=== PATIENT | female | born 1960 | race Caucasian/White ===

== ENCOUNTER 2016-09-21 08:25 | Inpatient (IN) | payer MEDICARE, MEDICAID ==
[2016-09-21] MEDS ORDERED: Sodium Chloride 0.9% 1,000 ML IV ONE (08:33)
--- NOTE | 2016-09-21 08:55 | ED Physician Chart ---
Chief Complaint/HPI - Patient Information Date Seen:: 09/21/16 Time Seen:: 08:20 Chief Complaint:: hypotension History of Present Illness:: pt sent from [place] where she was noted to have 'low blood pressure'. there is also some concern for 'congestion' that has been ongoing. the pt is unable to give any reliable history secondary to moderate dementia and perhaps her current clinical condition. there is no additional hx available from ambulance run sheet or attached records from care facility on this visit. Allergies:: Allergies Allergy/AdvReac Type Severity Reaction Status Date / Time meperidine Allergy Verified 03/06/16 11:26 olopatadine Allergy Verified 09/21/16 08:30 Penicillins Allergy Verified 03/06/16 11:26 prochlorperazine Allergy Verified 03/06/16 11:27 risperidone Allergy Verified 03/06/16 11:27 Vitals:: Vital Signs - 8 hr 09/21/16 08:30 Temp 98.2 F HR 144 RR 27 BP 99/56 O2 Sat % 100 Historian:: EMS, Medical Records (pt unable to communicate) Review:: Nurse's Note Reviewed, EMS run form Reviewed, Transfer documents Reviewed, Patient unable to respond Review of Systems - Review of Systems General/Constitutional: No fever Skin: Skin lesions (decube) Pulmonary: Sputum GI: No nausea, No vomiting, No diarrhea Musculoskeletal: Other (cp) Psychiatric: Other (?dementia per records) Hematopoietic: Other (anemia) Past Medical History - Past Medical History Past Medical History: HTN, DM, Dyslipidemia (recurrent resp infections), Other ( anemia) Social History: Care Facility Family Medical History - Family Member Mother History Unknown: Yes Ethnicity: Unknown Living Status: Unknown Paternal History Unknown: Yes Ethnicity: Unknown Living Status: Unknown Hx Family Diabetes: Yes Physical Exam - Physical Examination Head: Atraumatic Other Skin comments:: 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 no bleeding, unusual rashes. torgor ok. ENMT: Lips, teeth, gums nl Neck: No nuchal rigidity Other Neck comments:: no stridor Other Respiratory comments:: congested BS bilat, moves air fairly well. thick sputum suctioned by RT from throat. Other Cardio Vascular comments:: ST at 144, no ectopy, systolic ejection murmur2-3 heard at apex. ok peripheral pulses and skin VS. co cyanosis or mottling. GI: No tenderness/rebounding/guarding Other GI comments:: g-tube in place Other comments:: barr cath with cloudy urine. Other Extremities comments:: changes c/w CP, ext withered, contractures, good 2+DTRs on right but 1-2+ on left. Other Neuro/Psych comments:: responds to name, tries to turn head to see me. tries to answer simple questions with one word that is not intelligible all the time but sometimes seems to be appropriate? Other Misc comments:: presacral decube, nonsmelling Labs/Radiology/EKG Results - Lab Results Results: wbc 16.7, elevated troponin 1.96 . elevated BUN relative to Cr. Comments:: urinalysis with blood, elevated leuk esterase. lactate 2.01 - Radiology Results Comments:: ED read: increased consolidation left lung from pruior study 07/24/16. scoliosis , h. hernia, and suboptimal penetration technique may contribute to this appearance. - EKG Interpretations EKG Time:: 08:50 Rhythm: ST Comments:: Q waves III, V1-V2. ST depression leads 1,2, aVL, aVF, V4-6. ST elevation V1- 2. no prior fo0r comparison. ED Septic Shock - . Is Septic Shock (SBP<90, OR Lactate>4 mmol\L) present?: No - <6hrs of presentation: Vital Signs: Vital Signs - 8 hr 09/21/16 08:30 Temp 98.2 F HR 144 RR 27 BP 99/56 O2 Sat % 100 Reassessment (Disposition) - Reassessment Reassessment Condition:: Unchanged - Diagnosis Diagnosis:: sepsis, UTI, hypotension, probable pneumonia, decubitus, cerebral palsy, elevated troponin and EKG changes c/w AMI. dehydration. ED Discharge Plan - Patient Disposition Admit/Discharge/Transfer: Acute Care w/in this hosp Condition at Disposition: Stable
[2016-09-21 09:25] LABS: MEAN CELL VOLUME 90.3 fl (81-100)
[2016-09-21 09:27] LABS: MEAN CORPUSCULAR HEMOGLOBIN 29.7 pg (27.0-31.0); MEAN CORPUSCULAR HGB CONC 32.9 pg (28.0-36.0); MEAN PLATELET VOLUME 10.8 fl; PLATELET COUNT 218 Th/cmm (150-400); RED BLOOD COUNT 4.12 Mil/cmm (3.80-5.10); RED CELL DISTRIBUTION WIDTH 17.4 % (11.5-20.0)
[2016-09-21 09:29] LABS: HEMATOCRIT 37.2 % (35.0-45.0); HEMOGLOBIN 12.2 gm/dL (11.7-15.5); WHITE BLOOD COUNT 16.7 Th/cmm (4.8-10.8)
[2016-09-21 09:41] LABS: INR 1.12 (0.5-1.4); PROTHROMBIN TIME (TEST) 11.2 SECONDS (9.5-11.5)
[2016-09-21 09:41] LABS: URINE BILIRUBIN NEGATIVE (NEGATIVE); URINE COLOR RED; URINE GLUCOSE (UA) NEGATIVE (NEGATIVE)
[2016-09-21 09:42] LABS: URINE BLOOD LARGE (NEGATIVE); URINE KETONE TRACE mg/dL (NEGATIVE); URINE PROTEIN >300 mg/dL (NEGATIVE); URINE UROBILINOGEN 0.2 E.U./dL (0.2 - 1.0)
[2016-09-21 09:49] LABS: BAND NEUTROPHILE 7 % (0-10); NEUTROPHILS 83 % (40-80); PLATELET ESTIMATE ADEQUATE (NORMAL); PLATELET MORPHOLOGY NORMAL (NORMAL); TOTAL CELLS COUNTED 100
[2016-09-21 09:51] LABS: ALB/GLOB RATIO 0.9 (1.0-1.8); ANION GAP 11.4 (7.0-16.0); BILIRUBIN,TOTAL 0.3 mg/dL (0.3-1.0); CALCIUM SERUM 9.8 mg/dL (8.6-10.3); CREATININE - SERUM 1.6 mg/dL (0.6-1.2); POTASSIUM SERUM 3.4 mEq/L (3.5-5.1)
[2016-09-21] MEDS ORDERED: Aspirin 81mg Chewable Tab PO STA (10:21)
[2016-09-21 10:22] LABS: URINE RBC >100 /hpf (0-5)
[2016-09-21 10:23] LABS: URINE BACTERIA MANY /hpf (NONE SEEN); URINE EPITHELIAL CELLS OCCASIONAL /lpf (FEW); URINE WBC 25-50 /hpf (0-5)
[2016-09-21] MEDS ORDERED: Aspirin 81mg Chewable Tab ONE (10:26)
--- NOTE | 2016-09-21 10:28 | Diagnostic Imaging Report ---
Portable chest x-ray HISTORY: Shortness of breath Patient is markedly rotated associated with a severe scoliosis. The heart appears enlarged. There is opacification of the left lower hemithorax suggesting a pleural effusion. Underlying consolidation and/or atelectasis cannot be excluded. IMPRESSION: 1. Limited exam due to patient rotation associated with a severe scoliosis 2. Opacification left lower hemithorax suggesting a pleural effusion. Underlying pneumonia and/or atelectasis cannot be excluded.
[2016-09-21] MEDS ORDERED: Magnesium Hydroxide (MOM) 30 mL UDC GT PRN (12:42)
[2016-09-21] MEDS: Ipratropium Neb 0.5 mg/2.5 mL UD HHN SCH ×2 (13:18→23:59)
[2016-09-21] MEDS: Albuterol Nebulizer 2.5mg/3mL IH SCH ×3 (13:19→21:18)
[2016-09-21] MEDS: D5-0.45NS 1,000 ML IV SCH (13:33)
[2016-09-21 14:16] VITALS: BP 104/76
[2016-09-21] MEDS ORDERED: Non-Formulary Item 1 EA (Cran/Vitc/Mannose/Fos/Bromeln [Uti-Stat Liquid] 30 ML) GT SCH (17:00)
[2016-09-21] MEDS ORDERED: Non-Formulary Item 1 EA (Arginine/Glutamine/Calcium Hmb [Juven Packet] 1 PDS) GT SCH (17:00)
[2016-09-21] MEDS: INSULIN ASPART, RECOMBINANT 100 UNITS/ML SUBQ SCH ×2 (17:14→21:16)
--- NOTE | 2016-09-21 18:31 | Admit Criteria Form ---
Admit Criteria Forms - Admit Criteria Diagnosis: SEPSIS and OTHER FEBRILE ILLNESS, W/O FOCAL INFECTION Clinical Indications for Admission to Inpatient Care ( Place 'X' for any and all applicable criteria): Admission is indicated for ANY ONE of the following (1)(2)(3)(4): [ ] I. Bacteremia [ ]II. Suspected or identified specific infection requiring hospitalization (eg, meningitis, endocarditis) [ ]III. Hemodynamic instability [ ]IV. Altered mental status [ ]V. Failure or unavailability of outpatient antimicrobial treatment [ ]. Hypoxemia [ ]VII. Seizures [ ]VIII. High-risk febrile neutropenia [ ]IX. Need for parenteral antibiotic in patient who is likely to abuse vascular access device (eg, injection drug user) [A](7) [ ]X. Temperature greater than 104.9 degrees F (40.5 degrees C) (oral) [X]XI. Inpatient admission required rather than observation care because of ANY ONE of the following: [X]1) Specific infection identified that is too severe for outpatient treatment or observation care trial [ ]2) Metabolic disorder (eg, hypoglycemia, hyperglycemia, metabolic acidosis) that is severe or persistent [ ]3) Temperature greater than 103.1 degrees F (39.5 degrees C) ( oral) that is not responsive to observation care treatment [ ]4) IV fluid to replace significant ongoing (eg, for over 24 hours) losses (> 3 L/m2 per day) [ ]5) Supplemental oxygen or respiratory treatments for over 24 hours that is performable only in acute inpatient setting [ ]6) Parenteral nutrition regimen need that must be implemented on inpatient basis [ ]7) Strict or protective (eg, laminar flow) isolation [X]8) Other condition, treatment or monitoring requiring inpatient admission Extended stay beyond goal length of stay may be needed for(1)(3) [ ]a) Sepsis or septic shock(22) [ ]b) Positive blood cultures [ ]c) Insufficient oral intake [ ]d) High-risk febrile neutropenia(29)(30) [ ]e) Continued fever and clinical instability [ ]f) Clinically active comorbid illness (e.g,heart failure, renal failure , diabetes) The original [employer] content created by [employer] has been revised. The portions of the content which have been revised are identified through the use of italic text or in bold, and [facility] [employer] has neither reviewed nor approved the modified material. All other unmodified content is copyright [facility]. Please see references footnoted in the original [facility] edition 2016 Admit Criteria Met?: Yes
[2016-09-21] MEDS ORDERED: ZINC OXIDE TP SCH (20:00)
[2016-09-21] MEDS ORDERED: Non-Formulary Item 1 EA (Calcium Alginate [Kendall] 1 EACH) TP SCH (20:00)
[2016-09-21] MEDS ORDERED: COLLAGENASE APPL TP SCH (20:00)
[2016-09-21] MEDS ORDERED: Lovenox 1 mg/kg Q12H 1 Each Miscellaneous SUBQ SCH (21:00)
[2016-09-21] MEDS ORDERED: INSULIN 70/30 100 UNITS/ML SUBQ SCH (21:00)
[2016-09-21] MEDS ORDERED: PRAVASTATIN SODIUM 80 MG GT SCH (21:00)
[2016-09-21] MEDS: Atorvastatin Calcium 10 MG TAB PO SCH (21:08)
[2016-09-21] MEDS: Enoxaparin 40 mg/0.4 mL 0.4mL Syr SUBQ SCH (21:08)
[2016-09-21] MEDS ORDERED: Norepinephrine 4 mg/4mL Vial IV ONE (23:30)
[2016-09-22] MEDS ORDERED: Sodium Chloride 0.9% 250 ML IV ONE (01:43)
[2016-09-22 05:21] LABS: MEAN CELL VOLUME 91.3 fl (81-100); MEAN CORPUSCULAR HEMOGLOBIN 29.8 pg (27.0-31.0); MEAN CORPUSCULAR HGB CONC 32.6 pg (28.0-36.0); MEAN PLATELET VOLUME 11.1 fl; RED BLOOD COUNT 2.93 Mil/cmm (3.80-5.10); RED CELL DISTRIBUTION WIDTH 17.3 % (11.5-20.0)
[2016-09-22] MEDS: D5-0.45NS 1,000 ML IV SCH ×2 (05:25→16:48)
[2016-09-22 05:27] LABS: HEMOGLOBIN 8.7 gm/dL (11.7-15.5); WHITE BLOOD COUNT 8.6 Th/cmm (4.8-10.8)
[2016-09-22 05:28] LABS: HEMATOCRIT 26.7 % (35.0-45.0)
[2016-09-22 05:37] LABS: ANION GAP 6.2 (7.0-16.0); BUN - UREA NITROGEN 74 mg/dL (7-25); BUN/CREATININE RATIO 67.3; CALCIUM SERUM 7.9 mg/dL (8.6-10.3); CARBON DIOXIDE 21.6 mEq/L (21.0-31.0); CHLORIDE 127 mEq/L (98-107); CREATININE - SERUM 1.1 mg/dL (0.6-1.2); GLUCOSE 278 mg/dL (70-105); MAGNESIUM 2.7 mg/dL (1.9-2.7); SODIUM SERUM 152 mEq/L (136-145)
[2016-09-22 05:40] LABS: POTASSIUM SERUM 2.8 mEq/L (3.5-5.1)
[2016-09-22 06:41] LABS: PLATELET COUNT 103 Th/cmm (150-400)
[2016-09-22 07:06] LABS: ANISOCYTOSIS 1+; BAND NEUTROPHILE 11 % (0-10); EOSINOPHIL 2 % (0-5); NEUTROPHILS 80 % (40-80); PLATELET ESTIMATE DECREASED PLATELETS (NORMAL); PLATELET MORPHOLOGY GIANT PLATELETS SEEN (NORMAL); POLYCHROMASIA 1+; TOTAL CELLS COUNTED 100
[2016-09-22] MEDS: INSULIN ASPART, RECOMBINANT 100 UNITS/ML SUBQ SCH ×4 (07:19→21:50)
[2016-09-22] MEDS ORDERED: INSULIN 70/30 100 UNITS/ML SUBQ SCH (07:30)
[2016-09-22] MEDS ORDERED: Potassium Chloride 20 mEq ER Tab PO ONE (08:00)
[2016-09-22] MEDS: Albuterol Nebulizer 2.5mg/3mL IH SCH ×4 (08:07→19:34)
[2016-09-22] MEDS ORDERED: Vitamin A/Vitamin D 5 gm Packet TP SCH (09:00)
[2016-09-22] MEDS ORDERED: WHITE PET TP SCH (09:00)
[2016-09-22] MEDS ORDERED: LANOLIN TP SCH (09:00)
[2016-09-22] MEDS ORDERED: Potassium Chloride Elixir 20 mEq /15 mL UDC GT ONE (09:00)
[2016-09-22] MEDS: Lactulose 10 Gm/15 mL 30mL UDC GT SCH (09:00)
[2016-09-22] MEDS ORDERED: [UNRECOGNIZED DRUG - OTHER] TP SCH (09:00)
[2016-09-22] MEDS ORDERED: VITS A TP SCH (09:00)
[2016-09-22] MEDS: Multivitamin w/ Minerals Tab GT SCH (09:01)
[2016-09-22] MEDS: NYSTATIN 100000 UNITS/GM POWD TP SCH ×2 (09:02→17:15)
[2016-09-22] MEDS: Fenofibrate, Micronized 134 mg Cap GT SCH (09:02)
[2016-09-22] MEDS: Enoxaparin 40 mg/0.4 mL 0.4mL Syr SUBQ SCH (09:05)
[2016-09-22] MEDS: Ipratropium Neb 0.5 mg/2.5 mL UD HHN SCH (12:04)
--- NOTE | 2016-09-22 12:58 | Internal Medicine Prog Note ---
Internal Medicine Subjective - Subjective Patient seen and examined:: with staff, chart reviewed Patient is:: asleep, non-interactive, in bed Patient Complaints of:: congestion Per staff patient is:: noncompliant, confused, other (bp dropped, on levophed) Internal Medicine Objective - Results Result Diagrams: 09/22/16 04:49 09/22/16 04:49 Recent Labs: Laboratory Last Values WBC 8.6 Th/cmm (4.8-10.8) D 09/22/16 04:49 RBC 2.93 Mil/cmm (3.80-5.10) L 09/22/16 04:49 Hgb 8.7 gm/dL (11.7-15.5) L D 09/22/16 04:49 Hct 26.7 % (35.0-45.0) L D 09/22/16 04:49 MCV 91.3 fl (81-100) 09/22/16 04:49 MCH 29.8 pg (27.0-31.0) 09/22/16 04:49 MCHC Differential 32.6 pg (28.0-36.0) 09/22/16 04:49 RDW 17.3 % (11.5-20.0) 09/22/16 04:49 Plt Count 103 Th/cmm (150-400) L D 09/22/16 04:49 MPV 11.1 fl 09/22/16 04:49 Band Neutrophils % 11 % (0-10) H 09/22/16 04:49 Neutrophils (Manual) 80 % (40-80) 09/22/16 04:49 Lymphocytes 3 % (20-50) L 09/22/16 04:49 Monocytes 4 % (2-10) 09/22/16 04:49 Eosinophils 2 % (0-5) 09/22/16 04:49 Platelet Estimate DECREASED PLATELETS (NORMAL) 09/22/16 04:49 Platelet Morphology GIANT PLATELETS SEEN (NORMAL) 09/22/16 04:49 Polychromasia 1+ 09/22/16 04:49 Anisocytosis 1+ 09/22/16 04:49 RBC Morph Micro Appear ABNORMAL (NORMAL) 09/22/16 04:49 PT 11.2 SECONDS (9.5-11.5) 09/21/16 09:13 INR 1.12 (0.5-1.4) 09/21/16 09:13 PTT (Actin FS) 23.6 SECONDS (26.0-38.0) L 09/21/16 09:13 Sodium 152 mEq/L (136-145) H 09/22/16 04:49 Potassium 2.8 mEq/L (3.5-5.1) L* 09/22/16 04:49 Chloride 127 mEq/L (98-107) H 09/22/16 04:49 Carbon Dioxide 21.6 mEq/L (21.0-31.0) 09/22/16 04:49 Anion Gap 6.2 (7.0-16.0) L 09/22/16 04:49 BUN 74 mg/dL (7-25) H 09/22/16 04:49 Creatinine 1.1 mg/dL (0.6-1.2) 09/22/16 04:49 Est GFR ( Amer) > 60.0 ml/min (>90) 09/22/16 04:49 Est GFR (Non-Af Amer) 54.8 ml/min 09/22/16 04:49 BUN/Creatinine Ratio 67.3 09/22/16 04:49 Glucose 278 mg/dL (70-105) H 09/22/16 04:49 POC Glucose 75 MG/DL (70 - 105) 09/22/16 12:18 Hemoglobin A1c % 6.5 % (4.0-6.0) H 09/21/16 09:13 Whole Bld Lactic Acid 0.96 mmol/L (0.60-2.00) 09/21/16 22:05 Calcium 7.9 mg/dL (8.6-10.3) L 09/22/16 04:49 Magnesium 2.7 mg/dL (1.9-2.7) 09/22/16 04:49 Total Bilirubin 0.3 mg/dL (0.3-1.0) 09/21/16 09:13 AST 36 U/L (13-39) 09/21/16 09:13 ALT 18 U/L (7-52) 09/21/16 09:13 Alkaline Phosphatase 98 U/L (34-104) 09/21/16 09:13 Ammonia 41 umol/L (16-53) 09/22/16 04:49 Troponin I 0.79 ng/mL (0.01-0.05) H* D 09/21/16 22:05 B-Natriuretic Peptide 375.0 pg/mL (5.0-100.0) H 09/22/16 04:49 Total Protein 7.4 gm/dL (6.0-8.3) 09/21/16 09:13 Albumin 3.5 gm/dL (3.7-5.3) L 09/21/16 09:13 Globulin 3.9 gm/dL 09/21/16 09:13 Albumin/Globulin Ratio 0.9 (1.0-1.8) L 09/21/16 09:13 Urine Source CATH 09/21/16 09:30 Urine Color RED 09/21/16 09:30 Urine Clarity CLOUDY (CLEAR) H 09/21/16 09:30 Urine pH 6.0 09/21/16 09:30 Ur Specific [place] 1.020 (1.005-1.030) 09/21/16 09:30 Urine Protein >300 mg/dL (NEGATIVE) H 09/21/16 09:30 Urine Glucose (UA) NEGATIVE mg/dL (NEGATIVE) 09/21/16 09:30 Urine Ketones TRACE mg/dL (NEGATIVE) 09/21/16 09:30 Urine Blood LARGE (NEGATIVE) H 09/21/16 09:30 Urine Nitrate NEGATIVE (NEGATIVE) 09/21/16 09:30 Urine Bilirubin NEGATIVE (NEGATIVE) 09/21/16 09:30 Urine Urobilinogen 0.2 E.U./dL (0.2 - 1.0) 09/21/16 09:30 Ur Leukocyte Esterase LARGE (NEGATIVE) H 09/21/16 09:30 Urine RBC >100 /hpf (0-5) H 09/21/16 09:30 Urine WBC 25-50 /hpf (0-5) H 09/21/16 09:30 Ur Epithelial Cells OCCASIONAL /lpf (FEW) 09/21/16 09:30 Urine Bacteria MANY /hpf (NONE SEEN) 09/21/16 09:30 Digoxin 2.4 ng/ml (0.8-2.0) H 09/21/16 09:13 - Physical Exam Vitals and I&O: Vital Signs Temp 99.3 F 09/22/16 08:00 Pulse 89 09/22/16 12:06 Resp 20 09/22/16 12:06 BP 109/58 09/22/16 09:30 Pulse Ox 98 09/22/16 12:06 Intake & Output 09/21/16 09/22/16 09/22/16 18:59 06:59 18:59 Intake Total 50 1273.025 184.912 Output Total 350 600 Balance -300 673.025 184.912 Weight (lbs) 43.998 kg Intake: Intake, IV Amount 50 1123.025 184.912 Cefepime 1 gm In Dextrose 50 50 5% 50 ml @ 100 mls/hr IV Q12H [facility] Rx#:[id number] D5-0.45NS 1,000 ml @ 100 1000 mls/hr IV .Q10H [facility] Rx#: [id number] Norepinephrine 4 mg In 73.025 184.912 Dextrose 5% 250 ml @ 10 MCG/MIN 38.1 mls/hr IV TITR PRN Rx#:[id number] Oral 0 Other 150 Output: Urine 350 600 Active Medications: Current Medications Acetaminophen (Tylenol 650mg/20.3ml Suspension) 650 mg GT Q4H PRN PRN Reason: PAIN AND FEVER >101 Stop: 11/20/16 12:41 Acetaminophen/Hydrocodone Bitart ([place] 5mg/325mg) 1 tab GT Q4H PRN PRN Reason: Pain Stop: 11/20/16 12:41 Albuterol Sulfate (Albuterol 2.5mg/3ml Neb Ud) 2.5 mg IH QID [facility] Stop: 11/20/16 12:59 Last Admin: 09/22/16 12:04 Dose: 2.5 mg Ascorbic Acid (Vitamin C) 500 mg GT DAILY [facility] Stop: 11/21/16 08:59 Last Admin: 09/22/16 09:01 Dose: 500 mg Atorvastatin Calcium (Lipitor) 40 mg PO HS [facility] Stop: 11/20/16 20:59 Last Admin: 09/21/16 21:08 Dose: 40 mg Digoxin (Lanoxin) 0.25 mg GT DAILY [facility] Stop: 11/21/16 08:59 Last Admin: 09/22/16 09:00 Dose: 0.25 mg Diltiazem HCl (Cardizem) 20 mg IVP Q4H PRN PRN Reason: HR Greater than 130 per min Stop: 11/20/16 12:45 Fenofibrate (Tricor) 134 mg GT DAILY [facility] Stop: 11/21/16 08:59 Last Admin: 09/22/16 09:02 Dose: 134 mg Folic Acid (Folate) 1 mg GT DAILY [facility] Stop: 11/21/16 08:59 Last Admin: 09/22/16 09:01 Dose: 1 mg Guaifenesin (Robitussin) 200 mg GT Q4HR PRN PRN Reason: Cough or Congestion Stop: 11/20/16 12:41 Cefepime HCl 1 gm/ Dextrose 50 mls @ 100 mls/hr IV Q12H [facility] Stop: 11/20/16 12:59 Last Admin: 09/22/16 12:40 Dose: 100 mls/hr Vancomycin HCl 0.75 gm/ Sodium (Chloride) 250 mls @ 165 mls/hr IV Q24H [facility] Stop: 11/20/16 16:59 Last Admin: 09/21/16 17:04 Dose: 165 mls/hr Norepinephrine Bitartrate 4 mg (/ Dextrose) 254 mls @ 38.1 mls/hr IV TITR PRN; Protocol; 10 MCG/MIN PRN Reason: BP MAINTENANCE (PER PROTOCOL) Stop: 11/20/16 23:39 Last Admin: 09/22/16 11:23 Dose: 8 mcg/min, 30.48 mls/hr Dextrose/Sodium Chloride (D5-0.45ns) 1,000 mls @ 80 mls/hr IV .[id number] [facility] Stop: 11/21/16 12:53 Insulin Aspart (Novolog) 0 units SUBQ ACHS [facility] PRN Reason: Protocol Stop: 11/20/16 16:29 Last Admin: 09/22/16 12:35 Dose: Not Given Ipratropium [place] (Atrovent Neb 0.5mg/2.5ml) 0.5 mg HHN Q12H [facility] Stop: 11/20/16 12:44 Last Admin: 09/22/16 12:04 Dose: 0.5 mg Lactulose (Cephulac) 20 gm GT DAILY [facility] Stop: 11/21/16 08:59 Last Admin: 09/22/16 09:00 Dose: 20 gm Loperamide HCl (Imodium) 2 mg GT Q4H PRN PRN Reason: DIARRHEA Stop: 11/20/16 15:12 Magnesium Hydroxide (Milk Of Magnesia) 30 ml GT DAILY PRN PRN Reason: Constipation Stop: 11/20/16 12:41 Midodrine (Proamatine) 2.5 mg GT Q8H [facility] Stop: 11/20/16 12:44 Last Admin: 09/22/16 05:00 Dose: 2.5 mg Miscellaneous (Vancomycin Iv Per Pharmacy) 1 ea MC PRN [facility] Stop: 11/20/16 12:59 Nystatin (Nystop) 100,000 units TP BID [facility] Stop: 11/21/16 08:59 Last Admin: 09/22/16 09:02 Dose: 100,000 units Ondansetron HCl (Zofran) 4 mg IV Q8H PRN PRN Reason: Nausea / Vomiting Stop: 11/20/16 12:45 Pioglitazone HCl (Actos) 30 mg GT DAILY [facility] Stop: 11/21/16 08:59 Last Admin: 09/22/16 09:00 Dose: 30 mg Rivaroxaban (Xarelto) 10 mg GT DAILY [facility] Stop: 11/21/16 10:59 Last Admin: 09/22/16 12:41 Dose: 10 mg Vitamin A (Vitamin A & D) 0 gm TP DAILY [facility] Stop: 11/21/16 08:59 Zinc Sulfate (Zinc Sulfate) 220 mg GT DAILY [facility] Stop: 11/21/16 08:59 Last Admin: 09/22/16 09:03 Dose: 220 mg General: lethargic, demented HEENT: NC/AT Neck: Supple Lungs: congested, rales, ronchi Cardiovascular: RRR, Normal S1, Normal S2 Abdomen: thin, +GT, positive bowel sound Extremities: excoriation, contracture Neurological: no change - Procedures Procedures: Procedures Procedure Code Date BLOOD TRANSFUSION SERVICE 95139 03/06/16 CHANGE GASTROSTOMY TUBE 88834 06/09/14 AGNIESZKA BONE 20 SQ CM/< 69718 01/28/15 DIAGNOSTIC COLONOSCOPY 36577 03/06/16 EGD BIOPSY SINGLE/MULTIPLE 71217 03/06/16 EXCISION OF DUODENUM, ENDO, DIAGN [id number] 03/06/16 EXCISION OF STOMACH, ENDO, DIAGN [id number] 03/06/16 IMMOBILIZ/WOUND ATTN NEC 93.59 01/28/15 INSERT INDWELLING CATH 57.94 10/18/05 INSERT TEMP BLADDER CATH 84669 10/18/05 INSPECTION OF LOWER INTESTINAL TRACT, ENDO [id number] 03/06/16 INSPECTION OF UPPER INTESTINAL TRACT, ENDO [id number] 10/27/15 LOC EXC BONE LESION NEC 77.69 01/28/15 PACKED CELL TRANSFUSION 99.04 10/20/14 REPLACE GASTROSTOMY TUBE 97.02 06/09/14 TRANSFUSE NONAUT RED BLOOD CELLS IN PERIPH VEIN, PERC 59263V3 06/16/16 Internal Medicine Assmt/Plan - Assessment Assessment: sepsis shock pmn acute on crf anemia leukocytosis hypoglycemia mr cp - Plan Plan: cont on iv abx, on maxipime and vanco will hold all routine insulin cont on levophed critical poor access, will order midline ddw rn see order seen by dr martínez
--- NOTE | 2016-09-22 14:32 | History & Physical ---
CHIEF COMPLAINT: Elevated heart rate and respiratory distress. HISTORY OF PRESENT ILLNESS: This is a 56 years old female with history of mental retardation, cerebral palsy, diabetes, hypertension, hyperglycemia was admitted from nursing facility secondary to respiratory distress. Blood pressure was in the 90s. The patient was evaluated in the ER and noted to have elevated white count and having ____ urinary tract infection. Troponin was also positive. The patient ____. PAST MEDICAL HISTORY: As mentioned in history of present illness. PAST SURGICAL HISTORY: Status post PEG. ALLERGIES: DEMEROL, PENICILLIN, RISPERIDONE. MEDICATIONS: Please see medication list including multivitamin, thiamine, calcium, ascorbic acid, arginine, digoxin, fenofibrate, insulin, lactulose, midodrine, statin, Actos, ____, guaifenesin. FAMILY HISTORY: Noncontributory. SOCIAL HISTORY: The [facility] a [facility]. The patient requiring 24-hour total care. REVIEW OF SYSTEMS: This is limited secondary to the patient's current mental state. We will try to obtain more detailed review of systems at a later date by talking to family members, ____sister from [place] [phone]. We will also try to get information from the patient's case repairer, ____, . Also try to get information from nursing staff at [place], number [phone]. PHYSICAL EXAMINATION: VITAL SINGS: Blood pressure 99/56, respiration 27, pulse 144, and temperature 98.2. GENERAL: Elderly female ____. NECK: Supple. LUNGS: Equal breath sounds, few rhonchi. HEART: Sinus tachycardia. No appreciable murmurs. ABDOMEN: Soft. Nontender. Positive G-tube. EXTREMITIES: Positive excoriation. NEUROLOGIC: Limited, moving all 4 extremities. LABORATORY DATA: WBC 16.7, hemoglobin 12.2, platelets 218. INR 1.12. Sodium 136, potassium 3.4, BUN ____, creatinine 1.6, blood sugar 263. Hemoglobin A1c 6.5, lactate 2.01. Troponin 1.96. Large blood and 50 wbcs. ASSESSMENT: Urinary tract infection, elevated troponin, dehydration, acute renal failure, leukocytosis, hypertension, sepsis, ____, diabetes, mental retardation, cerebral palsy, hypercholesterolemia, bedridden, hematuria, left pleural effusion. PLAN: We will continue the patient on oxygen and bronchodilator treatments. We will start the patient on Lovenox, ____ following Cardiology. We will correct electrolyte abnormalities. We will monitor the patient's overall function. The patient's condition is grave. We will admit the patient to ICU. JOB# [id number]
[2016-09-22] MEDS: Vitamin A/Vitamin D 5 gm Packet TP SCH (17:16)
[2016-09-22] MEDS: Atorvastatin Calcium 10 MG TAB PO SCH (21:49)
[2016-09-23] MEDS: Hydrocodone/APAP 5mg/325mg Tab GT PRN (01:09)
[2016-09-23 05:45] LABS: ANION GAP 8.9 (7.0-16.0); BUN - UREA NITROGEN 47 mg/dL (7-25); BUN/CREATININE RATIO 42.7; CHLORIDE 125 mEq/L (98-107); CREATININE - SERUM 1.1 mg/dL (0.6-1.2); GLUCOSE 234 mg/dL (70-105); MAGNESIUM 2.9 mg/dL (1.9-2.7); POTASSIUM SERUM 3.9 mEq/L (3.5-5.1); SODIUM SERUM 144 mEq/L (136-145)
[2016-09-23] MEDS: D5-0.45NS 1,000 ML IV SCH (07:01)
[2016-09-23] MEDS: INSULIN ASPART, RECOMBINANT 100 UNITS/ML SUBQ SCH ×4 (07:02→21:36)
[2016-09-23 08:27] LABS: % BASOPHILS 0.3 % (0.0-2.0); % EOSINOPHILS 4.3 % (0.0-5.0); % LYMPHOCYTES 10.1 % (20.0-50.0); % MONOCYTES 7.1 % (2.0-10.0); % NEUTROPHILS 78.2 % (40.0-80.0); HEMOGLOBIN 9.9 gm/dL (11.7-15.5); MEAN CELL VOLUME 90.3 fl (81-100); MEAN CORPUSCULAR HEMOGLOBIN 29.5 pg (27.0-31.0); MEAN CORPUSCULAR HGB CONC 32.6 pg (28.0-36.0); MEAN PLATELET VOLUME 11.3 fl; NEUTROPHILE ABSOLUTE 5.6 Th/cmm (1.8-8.0); RED BLOOD COUNT 3.35 Mil/cmm (3.80-5.10); RED CELL DISTRIBUTION WIDTH 17.4 % (11.5-20.0); WHITE BLOOD COUNT 7.1 Th/cmm (4.8-10.8)
[2016-09-23 08:30] LABS: HEMATOCRIT 30.2 % (35.0-45.0); PLATELET COUNT 142 Th/cmm (150-400)
[2016-09-23] MEDS: Albuterol Nebulizer 2.5mg/3mL IH SCH (08:33)
[2016-09-23] MEDS: Multivitamin w/ Minerals Tab GT SCH (10:03)
[2016-09-23] MEDS: Fenofibrate, Micronized 134 mg Cap GT SCH (10:03)
[2016-09-23] MEDS: Lactulose 10 Gm/15 mL 30mL UDC GT SCH ×3 (10:12→21:32)
[2016-09-23] MEDS: Vitamin A/Vitamin D 5 gm Packet TP SCH (10:16)
[2016-09-23] MEDS: NYSTATIN 100000 UNITS/GM POWD TP SCH ×2 (10:16→17:52)
[2016-09-23] MEDS: Albuterol Nebulizer 2.5mg/3mL HHN SCH ×3 (11:55→19:38)
--- NOTE | 2016-09-23 12:23 | Internal Medicine Prog Note ---
Internal Medicine Subjective - Subjective Patient seen and examined:: with staff, chart reviewed Patient is:: asleep, non-verbal, non-interactive Patient Complaints of:: congestion Per staff patient is:: no adverse event, confused Internal Medicine Objective - Results Result Diagrams: 09/23/16 07:30 09/23/16 04:37 Recent Labs: Laboratory Last Values WBC 7.1 Th/cmm (4.8-10.8) 09/23/16 07:30 RBC 3.35 Mil/cmm (3.80-5.10) L 09/23/16 07:30 Hgb 9.9 gm/dL (11.7-15.5) L 09/23/16 07:30 Hct 30.2 % (35.0-45.0) L D 09/23/16 07:30 MCV 90.3 fl (81-100) 09/23/16 07:30 MCH 29.5 pg (27.0-31.0) 09/23/16 07:30 MCHC Differential 32.6 pg (28.0-36.0) 09/23/16 07:30 RDW 17.4 % (11.5-20.0) 09/23/16 07:30 Plt Count 142 Th/cmm (150-400) L D 09/23/16 07:30 MPV 11.3 fl 09/23/16 07:30 Neutrophils % 78.2 % (40.0-80.0) 09/23/16 07:30 Band Neutrophils % 11 % (0-10) H 09/22/16 04:49 Lymphocytes % 10.1 % (20.0-50.0) L 09/23/16 07:30 Monocytes % 7.1 % (2.0-10.0) 09/23/16 07:30 Eosinophils % 4.3 % (0.0-5.0) 09/23/16 07:30 Basophils % 0.3 % (0.0-2.0) 09/23/16 07:30 Neutrophils (Manual) 80 % (40-80) 09/22/16 04:49 Lymphocytes 3 % (20-50) L 09/22/16 04:49 Monocytes 4 % (2-10) 09/22/16 04:49 Eosinophils 2 % (0-5) 09/22/16 04:49 Platelet Estimate DECREASED PLATELETS (NORMAL) 09/22/16 04:49 Platelet Morphology GIANT PLATELETS SEEN (NORMAL) 09/22/16 04:49 Polychromasia 1+ 09/22/16 04:49 Anisocytosis 1+ 09/22/16 04:49 RBC Morph Micro Appear ABNORMAL (NORMAL) 09/22/16 04:49 PT 11.2 SECONDS (9.5-11.5) 09/21/16 09:13 INR 1.12 (0.5-1.4) 09/21/16 09:13 PTT (Actin FS) 23.6 SECONDS (26.0-38.0) L 09/21/16 09:13 Sodium 144 mEq/L (136-145) 09/23/16 04:37 Potassium 3.9 mEq/L (3.5-5.1) 09/23/16 04:37 Chloride 125 mEq/L (98-107) H 09/23/16 04:37 Carbon Dioxide 14.0 mEq/L (21.0-31.0) L 09/23/16 04:37 Anion Gap 8.9 (7.0-16.0) 09/23/16 04:37 BUN 47 mg/dL (7-25) H 09/23/16 04:37 Creatinine 1.1 mg/dL (0.6-1.2) 09/23/16 04:37 Est GFR ( Amer) > 60.0 ml/min (>90) 09/23/16 04:37 Est GFR (Non-Af Amer) 54.8 ml/min 09/23/16 04:37 BUN/Creatinine Ratio 42.7 09/23/16 04:37 Glucose 234 mg/dL (70-105) H 09/23/16 04:37 POC Glucose 226 MG/DL (70 - 105) H 09/23/16 06:53 Hemoglobin A1c % 6.5 % (4.0-6.0) H 09/21/16 09:13 Whole Bld Lactic Acid 0.96 mmol/L (0.60-2.00) 09/21/16 22:05 Calcium 9.0 mg/dL (8.6-10.3) 09/23/16 04:37 Magnesium 2.9 mg/dL (1.9-2.7) H 09/23/16 04:37 Total Bilirubin 0.3 mg/dL (0.3-1.0) 09/21/16 09:13 AST 36 U/L (13-39) 09/21/16 09:13 ALT 18 U/L (7-52) 09/21/16 09:13 Alkaline Phosphatase 98 U/L (34-104) 09/21/16 09:13 Ammonia 106 umol/L (16-53) H 09/23/16 04:37 Troponin I 0.79 ng/mL (0.01-0.05) H* D 09/21/16 22:05 B-Natriuretic Peptide 192.0 pg/mL (5.0-100.0) H 09/23/16 04:37 Total Protein 7.4 gm/dL (6.0-8.3) 09/21/16 09:13 Albumin 3.5 gm/dL (3.7-5.3) L 09/21/16 09:13 Globulin 3.9 gm/dL 09/21/16 09:13 Albumin/Globulin Ratio 0.9 (1.0-1.8) L 09/21/16 09:13 Urine Source CATH 09/21/16 09:30 Urine Color RED 09/21/16 09:30 Urine Clarity CLOUDY (CLEAR) H 09/21/16 09:30 Urine pH 6.0 09/21/16 09:30 Ur Specific [place] 1.020 (1.005-1.030) 09/21/16 09:30 Urine Protein >300 mg/dL (NEGATIVE) H 09/21/16 09:30 Urine Glucose (UA) NEGATIVE mg/dL (NEGATIVE) 09/21/16 09:30 Urine Ketones TRACE mg/dL (NEGATIVE) 09/21/16 09:30 Urine Blood LARGE (NEGATIVE) H 09/21/16 09:30 Urine Nitrate NEGATIVE (NEGATIVE) 09/21/16 09:30 Urine Bilirubin NEGATIVE (NEGATIVE) 09/21/16 09:30 Urine Urobilinogen 0.2 E.U./dL (0.2 - 1.0) 09/21/16 09:30 Ur Leukocyte Esterase LARGE (NEGATIVE) H 09/21/16 09:30 Urine RBC >100 /hpf (0-5) H 09/21/16 09:30 Urine WBC 25-50 /hpf (0-5) H 09/21/16 09:30 Ur Epithelial Cells OCCASIONAL /lpf (FEW) 09/21/16 09:30 Urine Bacteria MANY /hpf (NONE SEEN) 09/21/16 09:30 Digoxin 2.4 ng/ml (0.8-2.0) H 09/21/16 09:13 - Physical Exam Vitals and I&O: Vital Signs Temp 99.0 F 09/23/16 04:00 Pulse 93 09/23/16 09:00 Resp 20 09/23/16 08:35 BP 101/54 09/23/16 07:45 Pulse Ox 97 09/23/16 08:35 Intake & Output 09/22/16 09/23/16 09/23/16 18:59 06:59 18:59 Intake Total 674.802 6607 Output Total 650 Balance 403.060 470 Intake: Intake, IV Amount 083.649 9257 Cefepime 1 gm In Dextrose 50 5% 50 ml @ 100 mls/hr IV Q12H [facility] Rx#:[id number] D5-0.45NS 1,000 ml @ 80 1000 mls/hr IV .[id number] [facility] Rx #:[id number] Norepinephrine 4 mg In 353.060 Dextrose 5% 250 ml @ 10 MCG/MIN 38.1 mls/hr IV TITR PRN Rx#:[id number] Tube Feeding 120 Output: Urine 650 Other: # Bowel Movements 1 Active Medications: Current Medications Acetaminophen (Tylenol 650mg/20.3ml Suspension) 650 mg GT Q4H PRN PRN Reason: PAIN AND FEVER >101 Stop: 11/20/16 12:41 Acetaminophen/Hydrocodone Bitart ([place] 5mg/325mg) 1 tab GT Q4H PRN PRN Reason: Pain Stop: 11/20/16 12:41 Last Admin: 09/23/16 01:09 Dose: 1 tab Albuterol Sulfate (Albuterol 2.5mg/3ml Neb Ud) 2.5 mg HHN QIDRT [facility] Stop: 11/22/16 10:59 Last Admin: 09/23/16 11:55 Dose: 2.5 mg Ascorbic Acid (Vitamin C) 500 mg GT DAILY [facility] Stop: 11/21/16 08:59 Last Admin: 09/23/16 10:04 Dose: 500 mg Atorvastatin Calcium (Lipitor) 40 mg PO HS [facility] Stop: 11/20/16 20:59 Last Admin: 09/22/16 21:49 Dose: 40 mg Digoxin (Lanoxin) 0.25 mg GT DAILY [facility] Stop: 11/23/16 08:59 Diltiazem HCl (Cardizem) 20 mg IVP Q4H PRN PRN Reason: HR Greater than 130 per min Stop: 11/20/16 12:45 Fenofibrate (Tricor) 134 mg GT DAILY [facility] Stop: 11/21/16 08:59 Last Admin: 09/23/16 10:03 Dose: 134 mg Folic Acid (Folate) 1 mg GT DAILY [facility] Stop: 11/21/16 08:59 Last Admin: 09/23/16 10:11 Dose: 1 mg Guaifenesin (Robitussin) 200 mg GT Q4HR PRN PRN Reason: Cough or Congestion Stop: 11/20/16 12:41 Vancomycin HCl 0.75 gm/ Sodium (Chloride) 250 mls @ 165 mls/hr IV Q24H [facility] Stop: 11/20/16 16:59 Last Admin: 09/22/16 17:05 Dose: 165 mls/hr Norepinephrine Bitartrate 4 mg (/ Dextrose) 254 mls @ 38.1 mls/hr IV TITR PRN; Protocol; 10 MCG/MIN PRN Reason: BP MAINTENANCE (PER PROTOCOL) Stop: 11/20/16 23:39 Last Admin: 09/22/16 16:54 Dose: 8 mcg/min, 30.48 mls/hr Dextrose/Sodium Chloride (D5-0.45ns) 1,000 mls @ 80 mls/hr IV .[id number] [facility] Stop: 11/21/16 12:53 Last Admin: 09/23/16 07:01 Dose: 80 mls/hr Insulin Aspart (Novolog) 0 units SUBQ ACHS [facility] PRN Reason: Protocol Stop: 11/20/16 16:29 Last Admin: 09/23/16 07:02 Dose: 2 units Ipratropium [place] (Atrovent Neb 0.5mg/2.5ml) 0.5 mg HHN Q12HRT [facility] Stop: 11/22/16 18:59 Loperamide HCl (Imodium) 2 mg GT Q4H PRN PRN Reason: DIARRHEA Stop: 11/20/16 15:12 Magnesium Hydroxide (Milk Of Magnesia) 30 ml GT DAILY PRN PRN Reason: Constipation Stop: 11/20/16 12:41 Midodrine (Proamatine) 2.5 mg GT Q8H [facility] Stop: 11/20/16 12:44 Last Admin: 09/23/16 05:30 Dose: 2.5 mg Miscellaneous (Vancomycin Iv Per Pharmacy) 1 ea MC PRN [facility] Stop: 11/20/16 12:59 Nystatin (Nystop) 100,000 units TP BID [facility] Stop: 11/21/16 08:59 Last Admin: 09/23/16 10:16 Dose: 100,000 units Ondansetron HCl (Zofran) 4 mg IV Q8H PRN PRN Reason: Nausea / Vomiting Stop: 11/20/16 12:45 Pioglitazone HCl (Actos) 30 mg GT DAILY [facility] Stop: 11/21/16 08:59 Last Admin: 09/23/16 09:00 Dose: 30 mg Rivaroxaban (Xarelto) 10 mg GT DAILY [facility] Stop: 11/21/16 10:59 Last Admin: 09/23/16 10:04 Dose: 10 mg Vitamin A (Vitamin A & D) 5 gm TP DAILY [facility] Stop: 11/21/16 14:59 Last Admin: 09/23/16 10:16 Dose: 5 gm Zinc Sulfate (Zinc Sulfate) 220 mg GT DAILY [facility] Stop: 11/21/16 08:59 Last Admin: 09/23/16 10:04 Dose: 220 mg General: congested, demented HEENT: NC/AT, PERRLA Neck: Supple, No JVD Lungs: congested, rales Cardiovascular: RRR, Normal S1, Normal S2 Abdomen: soft non-tender, globular Extremities: excoriation, contracture Neurological: no change - Procedures Procedures: Procedures Procedure Code Date BLOOD TRANSFUSION SERVICE 27013 03/06/16 CHANGE GASTROSTOMY TUBE 69835 06/09/14 AGNIESZKA BONE 20 SQ CM/< 90953 01/28/15 DIAGNOSTIC COLONOSCOPY 14205 03/06/16 EGD BIOPSY SINGLE/MULTIPLE 81321 03/06/16 EXCISION OF DUODENUM, ENDO, DIAGN [id number] 03/06/16 EXCISION OF STOMACH, ENDO, DIAGN [id number] 03/06/16 IMMOBILIZ/WOUND ATTN NEC 93.59 01/28/15 INSERT INDWELLING CATH 57.94 10/18/05 INSERT TEMP BLADDER CATH 81956 10/18/05 INSPECTION OF LOWER INTESTINAL TRACT, ENDO [id number] 03/06/16 INSPECTION OF UPPER INTESTINAL TRACT, ENDO [id number] 10/27/15 LOC EXC BONE LESION NEC 77.69 01/28/15 PACKED CELL TRANSFUSION 99.04 10/20/14 REPLACE GASTROSTOMY TUBE 97.02 06/09/14 TRANSFUSE NONAUT RED BLOOD CELLS IN PERIPH VEIN, PERC 47504E3 06/16/16 Internal Medicine Assmt/Plan - Assessment Assessment: sepsis shock pmn acute on crf anemia leukocytosis hypoglycemia mr cp elevated ammonia - Plan Plan: cont on iv abx, on zosynand vanco will hold all routine insulin cont on levophed critical poor access, will order midline ddw rn see order seen by dr martínez Nutritional Asmnt/Malnutr-PDOC - Dietary Evaluation Malnutrition Findings (Please click <Entered> for more info): Nutritional Asmnt/Malnutrition Start: 09/22/16 12: 31 Text: Status: Complete Freq: Document 09/22/16 12:32 GSUN (Rec: 09/22/16 13:00 GSUN [id number]) Nutritional Asmnt/Malnutrition Patient General Information Nutritional Screening High Risk Screening Diagnosis Per ER: sepsis, UTI, HTN, possible PNA, elevated troponin Pertinent Medical Hx/Surgical Hx Per ER: HTN, DM, dyslipidemia, anemia, 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 RD consult for decubitus ulcer and trigger for BG >180. Discussed with RN regarding tube feeding regimens when tube feeding resumed. Unable to obtain new weight due to bedscale not properly calibrated. Current Diet Order/ Nutrition Support NPO Pertinent Medications Vitamin C, lipitor, D5, folate , novolog, novolin, cephulac, MOM, zofran, vancomycin, vitamin A and D, zinc sulfate Pertinent Labs 09/21: BUN 112H, creatinine 1. 6H, glucose 263H, A1c 6.5H, troponin 1.96H 09/22: Potassium 2.8L, BUN 74H (improving), creatinine 1.1 ( improved), glucose 278H POC glucose 58-303H Nutritional Hx/Data Height 1.45 m Height (Calculated Centimeters) 144.8 Current Weight (lbs) 43.998 kg Weight (Calculated Kilograms) 44.0 Weight (Calculated Grams) 23585.5 Weight Status Approriate GI Symptoms Food Allergies No Cultural/Ethnic/[employer] Belief Unknown. 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 Problem Problem Altered nutrition related laboratory values related to Etiology DM aeb Signs/Symptoms: episodes of hypoglycemia and hyperglycemia, 58L and 303H 1. Problem Problem Increased protein and kcal needs related to Etiology hypermetabolic state aeb Signs/Symptoms: sepsis, possible PNA, mulitple ulcerations Intervention/Recommendation Comments 1. Recommend Diabetisource 50ml/hr x 24hrs, providing 1440kcal and 72g protein, for glycemic control and to better meet nutritional needs. 2. Recommend 1 packet Arginaid BID via g-tube for multiple ulcerations wound healing. 3. If episodes of hypoglycemia persists, consider without carbohydrate restriction with Fibersource HN at 50ml/hrs x 24hrs. Expected Outcomes/Goals Expected Outcomes/Goals 1. Pt to meet 100% of estimated nutritional needs on tube feeding + Arginaid with tolerance. Physician Parameters for PEM Serum Albumin (g/dl) 3.5 - 5.0 (Normal)
--- NOTE | 2016-09-23 18:31 | Consultation ---
Patient of Dr. Sidhu. HISTORY AND PHYSICAL: This is a 56-year-old female patient who was brought to the Emergency Room complaining of shortness of breath. In the Emergency Room, the patient was found to have mild congestive heart failure, elevated troponin level and hence Cardiology consult is requested and patient is admitted to ICU. PAST MEDICAL HISTORY: The patient has a history of hypertension, diabetes, mental retardation, cerebral palsy, insulin dependent diabetes mellitus, hyperlipidemia, diabetic CKD stage 2, iron deficiency anemia. FAMILY HISTORY: Unremarkable. SOCIAL HISTORY: No history of smoking, alcohol abuse. ALLERGIES: No known allergies. PHYSICAL EXAMINATION: VITAL SIGNS: Blood pressure 130/80, pulse 88, respirations 28. HEAD: Normocephalic. No lumps or bumps. EYES: Pupils equal, reactive to light. Fundi show AV nicking, sclerae white, conjunctivae pink. NECK: Carotid 2+. Normal upstroke. JVD flat. Thyroid not palpable. Lymph nodes not palpable. CHEST: Shows increased AP diameter. No kyphosis, scoliosis. LUNGS: Bilateral bronchovesicular breath sounds. Occasional wheeze. No rales. HEART: PMI fifth intercostal space with lateral to midclavicular line. S1, S2, S3, S4, soft systolic murmur without radiation. ABDOMEN: Soft. Liver, spleen not palpable. No organomegaly. Bowel sounds are active. NEUROLOGIC: Unremarkable except cerebral palsy. EXTREMITIES: Peripheral pulses 1+. No pedal edema. CLINICAL IMPRESSION: Non-ST elevation myocardial infarction, hypertension, diabetes mellitus type 2, congestive heart failure, diastolic dysfunction, acute, insulin dependent diabetes mellitus, mental retardation, cerebral palsy, hyperlipidemia, mild congestive heart failure, diastolic dysfunction, iron deficiency anemia. PLAN: The patient to be anticoagulation and echocardiogram and monitor the patient in Intensive Care Unit. JOB# [id number]
[2016-09-23] MEDS: Ipratropium Neb 0.5 mg/2.5 mL UD HHN SCH (19:38)
[2016-09-23] MEDS: Atorvastatin Calcium 10 MG TAB PO SCH (21:33)
[2016-09-24] MEDS: D5-0.45NS 1,000 ML IV SCH (00:26)
[2016-09-24] MEDS: INSULIN ASPART, RECOMBINANT 100 UNITS/ML SUBQ SCH ×4 (06:32→20:16)
[2016-09-24] MEDS: Ipratropium Neb 0.5 mg/2.5 mL UD HHN SCH ×2 (07:46→19:08)
[2016-09-24] MEDS: Albuterol Nebulizer 2.5mg/3mL HHN SCH ×4 (07:46→19:08)
[2016-09-24] MEDS: Lactulose 10 Gm/15 mL 30mL UDC GT SCH ×4 (08:58→20:16)
[2016-09-24] MEDS: DIGOXIN 0.05 MG/ML GT SCH (08:59)
[2016-09-24] MEDS: Multivitamin w/ Minerals Tab GT SCH (08:59)
[2016-09-24] MEDS: Fenofibrate, Micronized 134 mg Cap GT SCH (08:59)
[2016-09-24] MEDS: NYSTATIN 100000 UNITS/GM POWD TP SCH ×2 (09:00→16:21)
[2016-09-24] MEDS: Vitamin A/Vitamin D 5 gm Packet TP SCH (09:00)
[2016-09-24 09:52] LABS: ANION GAP 7.1 (7.0-16.0); BUN - UREA NITROGEN 30 mg/dL (7-25); BUN/CREATININE RATIO 27.3; CALCIUM SERUM 8.5 mg/dL (8.6-10.3); CARBON DIOXIDE 19.2 mEq/L (21.0-31.0); CHLORIDE 119 mEq/L (98-107); CREATININE - SERUM 1.1 mg/dL (0.6-1.2); DIGOXIN 1.9 ng/ml (0.8-2.0); GLUCOSE 349 mg/dL (70-105); POTASSIUM SERUM 3.3 mEq/L (3.5-5.1); SODIUM SERUM 142 mEq/L (136-145)
[2016-09-24 10:14] LABS: % LYMPHOCYTES 17.7 % (20.0-50.0); % NEUTROPHILS 69.8 % (40.0-80.0); HEMATOCRIT 27.9 % (35.0-45.0); HEMOGLOBIN 9.3 gm/dL (11.7-15.5); MEAN CELL VOLUME 89.2 fl (81-100); MEAN CORPUSCULAR HEMOGLOBIN 29.5 pg (27.0-31.0); MEAN CORPUSCULAR HGB CONC 33.1 pg (28.0-36.0); MEAN PLATELET VOLUME 10.9 fl; PLATELET COUNT 162 Th/cmm (150-400); RED BLOOD COUNT 3.13 Mil/cmm (3.80-5.10); RED CELL DISTRIBUTION WIDTH 17.3 % (11.5-20.0); WHITE BLOOD COUNT 5.8 Th/cmm (4.8-10.8)
[2016-09-24 10:15] LABS: % BASOPHILS 0.3 % (0.0-2.0); % MONOCYTES 7.2 % (2.0-10.0); NEUTROPHILE ABSOLUTE 4.1 Th/cmm (1.8-8.0)
--- NOTE | 2016-09-24 14:42 | Internal Medicine Prog Note ---
Internal Medicine Subjective - Subjective Service Date: 09/24/16 Patient seen and examined:: with staff Patient is:: awake, non-verbal Patient Complaints of:: congestion Per staff patient is:: no adverse event Internal Medicine Objective - Results Result Diagrams: 09/24/16 08:50 09/24/16 08:50 Recent Labs: Laboratory Last Values WBC 5.8 Th/cmm (4.8-10.8) 09/24/16 08:50 RBC 3.13 Mil/cmm (3.80-5.10) L 09/24/16 08:50 Hgb 9.3 gm/dL (11.7-15.5) L 09/24/16 08:50 Hct 27.9 % (35.0-45.0) L 09/24/16 08:50 MCV 89.2 fl (81-100) 09/24/16 08:50 MCH 29.5 pg (27.0-31.0) 09/24/16 08:50 MCHC Differential 33.1 pg (28.0-36.0) 09/24/16 08:50 RDW 17.3 % (11.5-20.0) 09/24/16 08:50 Plt Count 162 Th/cmm (150-400) 09/24/16 08:50 MPV 10.9 fl 09/24/16 08:50 Neutrophils % 69.8 % (40.0-80.0) 09/24/16 08:50 Band Neutrophils % 11 % (0-10) H 09/22/16 04:49 Lymphocytes % 17.7 % (20.0-50.0) L 09/24/16 08:50 Monocytes % 7.2 % (2.0-10.0) 09/24/16 08:50 Eosinophils % 5.0 % (0.0-5.0) 09/24/16 08:50 Basophils % 0.3 % (0.0-2.0) 09/24/16 08:50 Neutrophils (Manual) 80 % (40-80) 09/22/16 04:49 Lymphocytes 3 % (20-50) L 09/22/16 04:49 Monocytes 4 % (2-10) 09/22/16 04:49 Eosinophils 2 % (0-5) 09/22/16 04:49 Platelet Estimate DECREASED PLATELETS (NORMAL) 09/22/16 04:49 Platelet Morphology GIANT PLATELETS SEEN (NORMAL) 09/22/16 04:49 Polychromasia 1+ 09/22/16 04:49 Anisocytosis 1+ 09/22/16 04:49 RBC Morph Micro Appear ABNORMAL (NORMAL) 09/22/16 04:49 PT 11.2 SECONDS (9.5-11.5) 09/21/16 09:13 INR 1.12 (0.5-1.4) 09/21/16 09:13 PTT (Actin FS) 23.6 SECONDS (26.0-38.0) L 09/21/16 09:13 Sodium 142 mEq/L (136-145) 09/24/16 08:50 Potassium 3.3 mEq/L (3.5-5.1) L 09/24/16 08:50 Chloride 119 mEq/L (98-107) H 09/24/16 08:50 Carbon Dioxide 19.2 mEq/L (21.0-31.0) L 09/24/16 08:50 Anion Gap 7.1 (7.0-16.0) 09/24/16 08:50 BUN 30 mg/dL (7-25) H 09/24/16 08:50 Creatinine 1.1 mg/dL (0.6-1.2) 09/24/16 08:50 Est GFR ( Amer) > 60.0 ml/min (>90) 09/24/16 08:50 Est GFR (Non-Af Amer) 54.8 ml/min 09/24/16 08:50 BUN/Creatinine Ratio 27.3 09/24/16 08:50 Glucose 349 mg/dL (70-105) H 09/24/16 08:50 POC Glucose 353 MG/DL (70 - 105) H 09/24/16 11:37 Hemoglobin A1c % 6.5 % (4.0-6.0) H 09/21/16 09:13 Whole Bld Lactic Acid 0.96 mmol/L (0.60-2.00) 09/21/16 22:05 Calcium 8.5 mg/dL (8.6-10.3) L 09/24/16 08:50 Magnesium 2.9 mg/dL (1.9-2.7) H 09/23/16 04:37 Total Bilirubin 0.3 mg/dL (0.3-1.0) 09/21/16 09:13 AST 36 U/L (13-39) 09/21/16 09:13 ALT 18 U/L (7-52) 09/21/16 09:13 Alkaline Phosphatase 98 U/L (34-104) 09/21/16 09:13 Ammonia 106 umol/L (16-53) H 09/23/16 04:37 Troponin I 0.79 ng/mL (0.01-0.05) H* D 09/21/16 22:05 B-Natriuretic Peptide 192.0 pg/mL (5.0-100.0) H 09/23/16 04:37 Total Protein 7.4 gm/dL (6.0-8.3) 09/21/16 09:13 Albumin 3.5 gm/dL (3.7-5.3) L 09/21/16 09:13 Globulin 3.9 gm/dL 09/21/16 09:13 Albumin/Globulin Ratio 0.9 (1.0-1.8) L 09/21/16 09:13 Urine Source CATH 09/21/16 09:30 Urine Color RED 09/21/16 09:30 Urine Clarity CLOUDY (CLEAR) H 09/21/16 09:30 Urine pH 6.0 09/21/16 09:30 Ur Specific Stevenson 1.020 (1.005-1.030) 09/21/16 09:30 Urine Protein >300 mg/dL (NEGATIVE) H 09/21/16 09:30 Urine Glucose (UA) NEGATIVE mg/dL (NEGATIVE) 09/21/16 09:30 Urine Ketones TRACE mg/dL (NEGATIVE) 09/21/16 09:30 Urine Blood LARGE (NEGATIVE) H 09/21/16 09:30 Urine Nitrate NEGATIVE (NEGATIVE) 09/21/16 09:30 Urine Bilirubin NEGATIVE (NEGATIVE) 09/21/16 09:30 Urine Urobilinogen 0.2 E.U./dL (0.2 - 1.0) 09/21/16 09:30 Ur Leukocyte Esterase LARGE (NEGATIVE) H 09/21/16 09:30 Urine RBC >100 /hpf (0-5) H 09/21/16 09:30 Urine WBC 25-50 /hpf (0-5) H 09/21/16 09:30 Ur Epithelial Cells OCCASIONAL /lpf (FEW) 09/21/16 09:30 Urine Bacteria MANY /hpf (NONE SEEN) 09/21/16 09:30 Vancomycin Trough 20.4 ug/mL (10-20) H 09/23/16 16:20 Digoxin 1.9 ng/ml (0.8-2.0) 09/24/16 08:50 - Physical Exam Vitals and I&O: Vital Signs Temp 97.2 F 09/24/16 12:00 Pulse 76 09/24/16 14:00 Resp 20 09/24/16 14:00 BP 89/49 09/24/16 14:00 Pulse Ox 100 09/24/16 14:00 Intake & Output 09/23/16 09/24/16 09/24/16 18:59 06:59 18:59 Intake Total 500 1814 223.444 Output Total 850 875 Balance -350 939 223.444 Weight (lbs) 134 lb Intake: Intake, IV Amount 100 1454 223.444 D5-0.45NS 1,000 ml @ 80 1000 mls/hr IV .[id number] [facility] Rx #:[id number] Norepinephrine 4 mg In 254 123.444 Dextrose 5% 250 ml @ 10 MCG/MIN 38.1 mls/hr IV TITR PRN Rx#:[id number] Piperacillin Sodium/ 100 200 100 Tazobact 4.5 gm In Sodium Chloride 0.9% 100 ml @ 100 mls/hr IV Q8HR [facility] Rx #:[id number] Tube Feeding 100 360 Other 300 Output: Urine 850 875 Other: # Bowel Movements 3 1 Stool Characteristics Formed Soft Hard Formed Brown Brown Active Medications: Current Medications Acetaminophen (Tylenol 650mg/20.3ml Suspension) 650 mg GT Q4H PRN PRN Reason: MILD PAIN AND FEVER >101 Stop: 11/20/16 12:41 Acetaminophen/Hydrocodone Bitart (Antelope 5mg/325mg) 1 tab GT Q4H PRN PRN Reason: Moderate-Severe Pain Stop: 11/20/16 12:41 Last Admin: 09/23/16 01:09 Dose: 1 tab Albuterol Sulfate (Albuterol 2.5mg/3ml Neb Ud) 2.5 mg HHN QIDRT [facility] Stop: 11/22/16 10:59 Last Admin: 09/24/16 11:02 Dose: 2.5 mg Ascorbic Acid (Vitamin C) 500 mg GT DAILY [facility] Stop: 11/21/16 08:59 Last Admin: 09/24/16 08:59 Dose: 500 mg Atorvastatin Calcium (Lipitor) 40 mg PO HS [facility] Stop: 11/20/16 20:59 Last Admin: 09/23/16 21:33 Dose: 40 mg Digoxin (Lanoxin) 0.25 mg GT DAILY [facility] Stop: 11/23/16 08:59 Last Admin: 09/24/16 08:59 Dose: Not Given Diltiazem HCl (Cardizem) 20 mg IVP Q4H PRN PRN Reason: HR Greater than 130 per min Stop: 11/20/16 12:45 Fenofibrate (Tricor) 134 mg GT DAILY [facility] Stop: 11/21/16 08:59 Last Admin: 09/24/16 08:59 Dose: 134 mg Folic Acid (Folate) 1 mg GT DAILY [facility] Stop: 11/21/16 08:59 Last Admin: 09/24/16 08:58 Dose: 1 mg Guaifenesin (Robitussin) 200 mg GT Q4HR PRN PRN Reason: Cough or Congestion Stop: 11/20/16 12:41 Norepinephrine Bitartrate 4 mg (/ Dextrose) 254 mls @ 38.1 mls/hr IV TITR PRN; Protocol; 10 MCG/MIN PRN Reason: BP MAINTENANCE (PER PROTOCOL) Stop: 11/20/16 23:39 Last Titration: 09/24/16 12:30 Dose: 2 mcg/min, 7.62 mls/hr Dextrose/Sodium Chloride (D5-0.45ns) 1,000 mls @ 80 mls/hr IV .[id number] [facility] Stop: 11/21/16 12:53 Last Admin: 09/24/16 00:26 Dose: 80 mls/hr Piperacillin Sod/Tazobactam (Sod 4.5 gm/ Sodium Chloride) 100 mls @ 100 mls/hr IV Q8HR [facility] Stop: 11/22/16 12:59 Last Infusion: 09/24/16 13:00 Dose: Infused Vancomycin HCl 0.75 gm/ Sodium (Chloride) 250 mls @ 165 mls/hr IV Q24H [facility] Stop: 11/23/16 20:59 Insulin Aspart (Novolog) 0 units SUBQ ACHS [facility] PRN Reason: Protocol Stop: 11/20/16 16:29 Last Admin: 09/24/16 11:56 Dose: 8 units Ipratropium [place] (Atrovent Neb 0.5mg/2.5ml) 0.5 mg HHN Q12HRT [facility] Stop: 11/22/16 18:59 Last Admin: 09/24/16 07:46 Dose: 0.5 mg Lactulose (Cephulac) 20 gm GT TID [facility] Stop: 11/22/16 13:59 Last Admin: 09/24/16 08:58 Dose: 20 gm Loperamide HCl (Imodium) 2 mg GT Q4H PRN PRN Reason: DIARRHEA Stop: 11/20/16 15:12 Magnesium Hydroxide (Milk Of Magnesia) 30 ml GT DAILY PRN PRN Reason: Constipation Stop: 11/20/16 12:41 Midodrine (Proamatine) 2.5 mg GT Q8H [facility] Stop: 11/20/16 12:44 Last Admin: 09/24/16 11:57 Dose: 2.5 mg Miscellaneous (Vancomycin Iv Per Pharmacy) 1 ea MC PRN [facility] Stop: 11/20/16 12:59 Nystatin (Nystop) 100,000 units TP BID [facility] Stop: 11/21/16 08:59 Last Admin: 09/24/16 09:00 Dose: 100,000 units Ondansetron HCl (Zofran) 4 mg IV Q8H PRN PRN Reason: Nausea / Vomiting Stop: 11/20/16 12:45 Pioglitazone HCl (Actos) 30 mg GT DAILY [facility] Stop: 11/21/16 08:59 Last Admin: 09/24/16 08:58 Dose: 30 mg Rivaroxaban (Xarelto) 10 mg GT DAILY [facility] Stop: 11/21/16 10:59 Last Admin: 09/24/16 08:58 Dose: 10 mg Vitamin A (Vitamin A & D) 5 gm TP DAILY [facility] Stop: 11/21/16 14:59 Last Admin: 09/24/16 09:00 Dose: 5 gm Zinc Sulfate (Zinc Sulfate) 220 mg GT DAILY [facility] Stop: 11/21/16 08:59 Last Admin: 09/24/16 08:59 Dose: 220 mg General: alert HEENT: NC/AT, PERRLA Neck: Supple Lungs: ronchi Cardiovascular: RRR, Normal S1, Normal S2, without murmur Abdomen: soft non-tender, non-distended Extremities: clear - Procedures Procedures: Procedures Procedure Code Date BLOOD TRANSFUSION SERVICE 42469 03/06/16 CHANGE GASTROSTOMY TUBE 20215 06/09/14 AGNIESZKA BONE 20 SQ CM/< 62759 01/28/15 DIAGNOSTIC COLONOSCOPY 69807 03/06/16 EGD BIOPSY SINGLE/MULTIPLE 33077 03/06/16 EXCISION OF DUODENUM, ENDO, DIAGN [id number] 03/06/16 EXCISION OF STOMACH, ENDO, DIAGN [id number] 03/06/16 IMMOBILIZ/WOUND ATTN NEC 93.59 01/28/15 INSERT INDWELLING CATH 57.94 10/18/05 INSERT TEMP BLADDER CATH 56898 10/18/05 INSPECTION OF LOWER INTESTINAL TRACT, ENDO [id number] 03/06/16 INSPECTION OF UPPER INTESTINAL TRACT, ENDO [id number] 10/27/15 LOC EXC BONE LESION NEC 77.69 01/28/15 PACKED CELL TRANSFUSION 99.04 10/20/14 REPLACE GASTROSTOMY TUBE 97.02 06/09/14 TRANSFUSE NONAUT RED BLOOD CELLS IN PERIPH VEIN, PERC [id number] 06/16/16 Internal Medicine Assmt/Plan - Assessment Assessment: sepsis shock pmn acute on crf anemia leukocytosis hypoglycemia mr cp elevated ammonia ESBL URINE MRSA NARES - Plan Plan: ivf for hydration replace k+ f/u labs in am ivabx wound care Nutritional Asmnt/Malnutr-PDOC - Dietary Evaluation Malnutrition Findings (Please click <Entered> for more info): Nutritional Asmnt/Malnutrition Start: 09/22/16 12: 31 Text: Status: Complete Freq: Document 09/22/16 12:32 GSUN (Rec: 09/22/16 13:00 GSUN [email or web address]) Nutritional Asmnt/Malnutrition Patient General Information Nutritional Screening High Risk Screening Diagnosis Per ER: sepsis, UTI, HTN, possible PNA, elevated troponin Pertinent Medical Hx/Surgical Hx Per ER: HTN, DM, dyslipidemia, anemia, 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 RD consult for decubitus ulcer and trigger for BG >180. Discussed with RN regarding tube feeding regimens when tube feeding resumed. Unable to obtain new weight due to bedscale not properly calibrated. Current Diet Order/ Nutrition Support NPO Pertinent Medications Vitamin C, lipitor, D5, folate , novolog, novolin, cephulac, MOM, zofran, vancomycin, vitamin A and D, zinc sulfate Pertinent Labs 09/21: BUN 112H, creatinine 1. 6H, glucose 263H, A1c 6.5H, troponin 1.96H 09/22: Potassium 2.8L, BUN 74H (improving), creatinine 1.1 ( improved), glucose 278H POC glucose 58-303H Nutritional Hx/Data Height 4 ft 9 in Height (Calculated Centimeters) 144.8 Current Weight (lbs) 97 lb Weight (Calculated Kilograms) 44.0 Weight (Calculated Grams) 69807.5 Weight Status Approriate GI Symptoms Food Allergies No Cultural/Ethnic/[employer] Belief Unknown. 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 Problem Problem Altered nutrition related laboratory values related to Etiology DM aeb Signs/Symptoms: episodes of hypoglycemia and hyperglycemia, 58L and 303H 1. Problem Problem Increased protein and kcal needs related to Etiology hypermetabolic state aeb Signs/Symptoms: sepsis, possible PNA, mulitple ulcerations Intervention/Recommendation Comments 1. Recommend Diabetisource 50ml/hr x 24hrs, providing 1440kcal and 72g protein, for glycemic control and to better meet nutritional needs. 2. Recommend 1 packet Arginaid BID via g-tube for multiple ulcerations wound healing. 3. If episodes of hypoglycemia persists, consider without carbohydrate restriction with Fibersource HN at 50ml/hrs x 24hrs. Expected Outcomes/Goals Expected Outcomes/Goals 1. Pt to meet 100% of estimated nutritional needs on tube feeding + Arginaid with tolerance. Physician Parameters for PEM Serum Albumin (g/dl) 3.5 - 5.0 (Normal)
[2016-09-24] MEDS ORDERED: Potassium Chloride Elixir 20 mEq /15 mL UDC PO ONE (14:45)
[2016-09-24] MEDS: Sodium Chloride 0.9% 1,000 ML IV SCH (16:04)
[2016-09-24] MEDS: Atorvastatin Calcium 10 MG TAB PO SCH (20:10)
[2016-09-24] MEDS ORDERED: Norepinephrine 4 mg/4mL Vial IV ONE (23:06)
[2016-09-25 05:22] LABS: % BASOPHILS 0.7 % (0.0-2.0); % EOSINOPHILS 5.2 % (0.0-5.0); % LYMPHOCYTES 27.4 % (20.0-50.0); % NEUTROPHILS 55.7 % (40.0-80.0); HEMATOCRIT 29.5 % (35.0-45.0); HEMOGLOBIN 9.7 gm/dL (11.7-15.5); MEAN CELL VOLUME 90.6 fl (81-100); MEAN CORPUSCULAR HEMOGLOBIN 29.7 pg (27.0-31.0); MEAN CORPUSCULAR HGB CONC 32.8 pg (28.0-36.0); MEAN PLATELET VOLUME 10.2 fl; NEUTROPHILE ABSOLUTE 3.8 Th/cmm (1.8-8.0); PLATELET COUNT 157 Th/cmm (150-400); RED BLOOD COUNT 3.25 Mil/cmm (3.80-5.10); RED CELL DISTRIBUTION WIDTH 17.8 % (11.5-20.0); WHITE BLOOD COUNT 6.8 Th/cmm (4.8-10.8)
[2016-09-25 05:47] LABS: ANION GAP 10.5 (7.0-16.0); BUN - UREA NITROGEN 30 mg/dL (7-25); CALCIUM SERUM 8.7 mg/dL (8.6-10.3); CARBON DIOXIDE 20.3 mEq/L (21.0-31.0); CHLORIDE 120 mEq/L (98-107); GLUCOSE 328 mg/dL (70-105); POTASSIUM SERUM 4.8 mEq/L (3.5-5.1); SODIUM SERUM 146 mEq/L (136-145)
[2016-09-25] MEDS: INSULIN ASPART, RECOMBINANT 100 UNITS/ML SUBQ SCH ×3 (06:32→16:28)
[2016-09-25] MEDS: Ipratropium Neb 0.5 mg/2.5 mL UD HHN SCH ×4 (08:02→23:20)
[2016-09-25] MEDS: Albuterol Nebulizer 2.5mg/3mL HHN SCH ×5 (08:03→23:20)
[2016-09-25] MEDS: Sodium Chloride 0.9% 1,000 ML IV SCH ×2 (08:24→16:36)
[2016-09-25] MEDS: Multivitamin w/ Minerals Tab GT SCH (08:24)
[2016-09-25] MEDS: Fenofibrate, Micronized 134 mg Cap GT SCH (08:25)
[2016-09-25] MEDS: Lactulose 10 Gm/15 mL 30mL UDC GT SCH ×3 (08:25→21:22)
[2016-09-25] MEDS: DIGOXIN 0.05 MG/ML GT SCH (08:25)
[2016-09-25] MEDS: NYSTATIN 100000 UNITS/GM POWD TP SCH ×2 (08:26→16:29)
[2016-09-25] MEDS: Vitamin A/Vitamin D 5 gm Packet TP SCH (08:26)
[2016-09-25] MEDS ORDERED: Probiotic Screen MC PRN (08:49)
--- NOTE | 2016-09-25 10:31 | Diagnostic Imaging Report ---
Portable chest x-ray HISTORY: Shortness of breath Compared to prior exam of September 21, 2016, there is now complete opacification of the left hemithorax. Previously noted aeration left upper lobe is no longer seen. Associated volume loss is consistent with collapse of the left lung and corresponds to changes noted on a prior CT scan of September 19, 2015. IMPRESSION: 1. Progression with complete opacification of the left hemithorax and volume loss consistent with collapse of the left lung. Findings correspond to changes noted on the earlier CT scan of September 19, 2015. Endobronchial obstruction cannot be excluded.
[2016-09-25] MEDS: Lactobacillus Rhamnosus 10 Billion CFU Capsule PO SCH (11:10)
--- NOTE | 2016-09-25 12:13 | Internal Medicine Prog Note ---
Internal Medicine Subjective - Subjective Service Date: 09/25/16 Patient seen and examined:: with staff Patient is:: awake, non-verbal, non-interactive Per staff patient is:: no adverse event Internal Medicine Objective - Results Result Diagrams: 09/25/16 05:00 09/25/16 05:00 Recent Labs: Laboratory Last Values WBC 6.8 Th/cmm (4.8-10.8) 09/25/16 05:00 RBC 3.25 Mil/cmm (3.80-5.10) L 09/25/16 05:00 Hgb 9.7 gm/dL (11.7-15.5) L 09/25/16 05:00 Hct 29.5 % (35.0-45.0) L 09/25/16 05:00 MCV 90.6 fl (81-100) 09/25/16 05:00 MCH 29.7 pg (27.0-31.0) 09/25/16 05:00 MCHC Differential 32.8 pg (28.0-36.0) 09/25/16 05:00 RDW 17.8 % (11.5-20.0) 09/25/16 05:00 Plt Count 157 Th/cmm (150-400) 09/25/16 05:00 MPV 10.2 fl 09/25/16 05:00 Neutrophils % 55.7 % (40.0-80.0) 09/25/16 05:00 Band Neutrophils % 11 % (0-10) H 09/22/16 04:49 Lymphocytes % 27.4 % (20.0-50.0) 09/25/16 05:00 Monocytes % 11.0 % (2.0-10.0) H 09/25/16 05:00 Eosinophils % 5.2 % (0.0-5.0) H 09/25/16 05:00 Basophils % 0.7 % (0.0-2.0) 09/25/16 05:00 Neutrophils (Manual) 80 % (40-80) 09/22/16 04:49 Lymphocytes 3 % (20-50) L 09/22/16 04:49 Monocytes 4 % (2-10) 09/22/16 04:49 Eosinophils 2 % (0-5) 09/22/16 04:49 Platelet Estimate DECREASED PLATELETS (NORMAL) 09/22/16 04:49 Platelet Morphology GIANT PLATELETS SEEN (NORMAL) 09/22/16 04:49 Polychromasia 1+ 09/22/16 04:49 Anisocytosis 1+ 09/22/16 04:49 RBC Morph Micro Appear ABNORMAL (NORMAL) 09/22/16 04:49 PT 11.2 SECONDS (9.5-11.5) 09/21/16 09:13 INR 1.12 (0.5-1.4) 09/21/16 09:13 PTT (Actin FS) 23.6 SECONDS (26.0-38.0) L 09/21/16 09:13 Sodium 146 mEq/L (136-145) H 09/25/16 05:00 Potassium 4.8 mEq/L (3.5-5.1) 09/25/16 05:00 Chloride 120 mEq/L (98-107) H 09/25/16 05:00 Carbon Dioxide 20.3 mEq/L (21.0-31.0) L 09/25/16 05:00 Anion Gap 10.5 (7.0-16.0) 09/25/16 05:00 BUN 30 mg/dL (7-25) H 09/25/16 05:00 Creatinine 1.0 mg/dL (0.6-1.2) 09/25/16 05:00 Est GFR ( Amer) > 60.0 ml/min (>90) 09/25/16 05:00 Est GFR (Non-Af Amer) > 60.0 ml/min 09/25/16 05:00 BUN/Creatinine Ratio 30.0 09/25/16 05:00 Glucose 328 mg/dL (70-105) H 09/25/16 05:00 POC Glucose 271 MG/DL (70 - 105) H 09/25/16 11:30 Hemoglobin A1c % 6.5 % (4.0-6.0) H 09/21/16 09:13 Whole Bld Lactic Acid 0.96 mmol/L (0.60-2.00) 09/21/16 22:05 Calcium 8.7 mg/dL (8.6-10.3) 09/25/16 05:00 Magnesium 2.9 mg/dL (1.9-2.7) H 09/23/16 04:37 Total Bilirubin 0.3 mg/dL (0.3-1.0) 09/21/16 09:13 AST 36 U/L (13-39) 09/21/16 09:13 ALT 18 U/L (7-52) 09/21/16 09:13 Alkaline Phosphatase 98 U/L (34-104) 09/21/16 09:13 Ammonia 106 umol/L (16-53) H 09/23/16 04:37 Troponin I 0.79 ng/mL (0.01-0.05) H* D 09/21/16 22:05 B-Natriuretic Peptide 283.0 pg/mL (5.0-100.0) H 09/25/16 05:00 Total Protein 7.4 gm/dL (6.0-8.3) 09/21/16 09:13 Albumin 3.5 gm/dL (3.7-5.3) L 09/21/16 09:13 Globulin 3.9 gm/dL 09/21/16 09:13 Albumin/Globulin Ratio 0.9 (1.0-1.8) L 09/21/16 09:13 Urine Source CATH 09/21/16 09:30 Urine Color RED 09/21/16 09:30 Urine Clarity CLOUDY (CLEAR) H 09/21/16 09:30 Urine pH 6.0 09/21/16 09:30 Ur Specific [place] 1.020 (1.005-1.030) 09/21/16 09:30 Urine Protein >300 mg/dL (NEGATIVE) H 09/21/16 09:30 Urine Glucose (UA) NEGATIVE mg/dL (NEGATIVE) 09/21/16 09:30 Urine Ketones TRACE mg/dL (NEGATIVE) 09/21/16 09:30 Urine Blood LARGE (NEGATIVE) H 09/21/16 09:30 Urine Nitrate NEGATIVE (NEGATIVE) 09/21/16 09:30 Urine Bilirubin NEGATIVE (NEGATIVE) 09/21/16 09:30 Urine Urobilinogen 0.2 E.U./dL (0.2 - 1.0) 09/21/16 09:30 Ur Leukocyte Esterase LARGE (NEGATIVE) H 09/21/16 09:30 Urine RBC >100 /hpf (0-5) H 09/21/16 09:30 Urine WBC 25-50 /hpf (0-5) H 09/21/16 09:30 Ur Epithelial Cells OCCASIONAL /lpf (FEW) 09/21/16 09:30 Urine Bacteria MANY /hpf (NONE SEEN) 09/21/16 09:30 Vancomycin Trough 20.4 ug/mL (10-20) H 09/23/16 16:20 Digoxin 1.9 ng/ml (0.8-2.0) 09/24/16 08:50 - Physical Exam Vitals and I&O: Vital Signs Temp 97.9 F 09/25/16 08:00 Pulse 70 09/25/16 11:30 Resp 20 09/25/16 11:30 BP 99/54 09/25/16 11:00 Pulse Ox 99 09/25/16 11:30 Intake & Output 09/24/16 09/25/16 09/25/16 18:59 06:59 18:59 Intake Total 581.664 2734.376 257.556 Output Total 700 500 Balance -651.462 6130.376 257.556 Intake: Intake, IV Amount 579.952 3250.376 257.556 Norepinephrine 4 mg In 123.444 87.376 257.556 Dextrose 5% 250 ml @ 10 MCG/MIN 38.1 mls/hr IV TITR PRN Rx#:[id number] Piperacillin Sodium/ 100 200 Tazobact 4.5 gm In Sodium Chloride 0.9% 100 ml @ 100 mls/hr IV Q8HR [facility] Rx #:[id number] Sodium Chloride 0.9% 1, 1000 000 ml @ 70 mls/hr IV . [id number] [facility] Rx#:[id number] Vancomycin HCl 0.75 gm In 250 Sodium Chloride 0.9% 250 ml @ 165 mls/hr IV Q24H [facility] Rx#:[id number] Tube Feeding 270 Other 610 Output: Urine 700 500 Other: # Bowel Movements 3 Stool Characteristics Liquid Brown Active Medications: Current Medications Acetaminophen (Tylenol 650mg/20.3ml Suspension) 650 mg GT Q4H PRN PRN Reason: MILD PAIN AND FEVER >101 Stop: 11/20/16 12:41 Acetaminophen/Hydrocodone Bitart (Lithia 5mg/325mg) 1 tab GT Q4H PRN PRN Reason: Moderate-Severe Pain Stop: 11/20/16 12:41 Last Admin: 09/23/16 01:09 Dose: 1 tab Albuterol Sulfate (Albuterol 2.5mg/3ml Neb Ud) 2.5 mg HHN QIDRT [facility] Stop: 11/22/16 10:59 Last Admin: 09/25/16 11:29 Dose: 2.5 mg Ascorbic Acid (Vitamin C) 500 mg GT DAILY [facility] Stop: 11/21/16 08:59 Last Admin: 09/25/16 08:25 Dose: 500 mg Atorvastatin Calcium (Lipitor) 40 mg PO HS [facility] Stop: 11/20/16 20:59 Last Admin: 09/24/16 20:10 Dose: 40 mg Digoxin (Lanoxin) 0.25 mg GT DAILY [facility] Stop: 11/23/16 08:59 Last Admin: 09/25/16 08:25 Dose: Not Given Diltiazem HCl (Cardizem) 20 mg IVP Q4H PRN PRN Reason: HR Greater than 130 per min Stop: 11/20/16 12:45 Fenofibrate (Tricor) 134 mg GT DAILY [facility] Stop: 11/21/16 08:59 Last Admin: 09/25/16 08:25 Dose: 134 mg Folic Acid (Folate) 1 mg GT DAILY [facility] Stop: 11/21/16 08:59 Last Admin: 09/25/16 08:28 Dose: 1 mg Guaifenesin (Robitussin) 200 mg GT Q4HR PRN PRN Reason: Cough or Congestion Stop: 11/20/16 12:41 Norepinephrine Bitartrate 4 mg (/ Dextrose) 254 mls @ 38.1 mls/hr IV TITR PRN; Protocol; 10 MCG/MIN PRN Reason: BP MAINTENANCE (PER PROTOCOL) Stop: 11/20/16 23:39 Last Titration: 09/25/16 09:06 Dose: 3 mcg/min, 11.43 mls/hr Piperacillin Sod/Tazobactam (Sod 4.5 gm/ Sodium Chloride) 100 mls @ 100 mls/hr IV Q8HR [facility] Stop: 11/22/16 12:59 Last Infusion: 09/25/16 05:55 Dose: Infused Vancomycin HCl 0.75 gm/ Sodium (Chloride) 250 mls @ 165 mls/hr IV Q24H [facility] Stop: 11/23/16 20:59 Last Infusion: 09/24/16 22:37 Dose: Infused Sodium Chloride (Nacl 0.9%) 1,000 mls @ 70 mls/hr IV .[id number] [facility] Stop: 11/23/16 15:29 Last Admin: 09/25/16 08:24 Dose: 70 mls/hr Insulin Aspart (Novolog) 0 units SUBQ ACHS [facility] PRN Reason: Protocol Stop: 11/20/16 16:29 Last Admin: 09/25/16 11:33 Dose: 4 units Ipratropium [place] (Atrovent Neb 0.5mg/2.5ml) 0.5 mg HHN Q12HRT [facility] Stop: 11/22/16 18:59 Last Admin: 09/25/16 08:02 Dose: 0.5 mg Lactobacillus Rhamnosus (Culturelle) 1 each PO DAILY [facility] Stop: 11/24/16 08:59 Last Admin: 09/25/16 11:10 Dose: Not Given Lactulose (Cephulac) 20 gm GT TID [facility] Stop: 11/22/16 13:59 Last Admin: 09/25/16 08:25 Dose: 20 gm Loperamide HCl (Imodium) 2 mg GT Q4H PRN PRN Reason: DIARRHEA Stop: 11/20/16 15:12 Magnesium Hydroxide (Milk Of Magnesia) 30 ml GT DAILY PRN PRN Reason: Constipation Stop: 11/20/16 12:41 Midodrine (Proamatine) 5 mg GT Q8H [facility] Stop: 11/23/16 19:59 Last Admin: 09/25/16 11:32 Dose: 5 mg Miscellaneous (Vancomycin Iv Per Pharmacy) 1 ea MC PRN [facility] Stop: 11/20/16 12:59 Miscellaneous (Probiotic Screen) 1 ea MC PRN PRN PRN Reason: PROTOCOL Stop: 11/24/16 08:48 Nystatin (Nystop) 100,000 units TP BID [facility] Stop: 11/21/16 08:59 Last Admin: 09/25/16 08:26 Dose: 100,000 units Ondansetron HCl (Zofran) 4 mg IV Q8H PRN PRN Reason: Nausea / Vomiting Stop: 11/20/16 12:45 Pioglitazone HCl (Actos) 30 mg GT DAILY [facility] Stop: 11/21/16 08:59 Last Admin: 09/25/16 08:24 Dose: 30 mg Rivaroxaban (Xarelto) 10 mg GT DAILY [facility] Stop: 11/21/16 10:59 Last Admin: 09/25/16 08:25 Dose: 10 mg Vitamin A (Vitamin A & D) 5 gm TP DAILY [facility] Stop: 11/21/16 14:59 Last Admin: 09/25/16 08:26 Dose: 5 gm Zinc Sulfate (Zinc Sulfate) 220 mg GT DAILY [facility] Stop: 11/21/16 08:59 Last Admin: 09/25/16 08:25 Dose: 220 mg General: weak, congested, other (noninteractive) HEENT: NC/AT Neck: Supple Lungs: ronchi Cardiovascular: RRR, Normal S1, Normal S2, without murmur Abdomen: soft non-tender, non-distended, +GT, positive bowel sound Neurological: no change - Procedures Procedures: Procedures Procedure Code Date BLOOD TRANSFUSION SERVICE 63495 03/06/16 CHANGE GASTROSTOMY TUBE 74669 06/09/14 AGNIESZKA BONE 20 SQ CM/< 67382 01/28/15 DIAGNOSTIC COLONOSCOPY 57226 03/06/16 EGD BIOPSY SINGLE/MULTIPLE 63774 03/06/16 EXCISION OF DUODENUM, ENDO, DIAGN [id number] 03/06/16 EXCISION OF STOMACH, ENDO, DIAGN [id number] 03/06/16 IMMOBILIZ/WOUND ATTN NEC 93.59 01/28/15 INSERT INDWELLING CATH 57.94 10/18/05 INSERT TEMP BLADDER CATH 64801 10/18/05 INSPECTION OF LOWER INTESTINAL TRACT, ENDO [id number] 03/06/16 INSPECTION OF UPPER INTESTINAL TRACT, ENDO [id number] 10/27/15 LOC EXC BONE LESION NEC 77.69 01/28/15 PACKED CELL TRANSFUSION 99.04 10/20/14 REPLACE GASTROSTOMY TUBE 97.02 06/09/14 TRANSFUSE NONAUT RED BLOOD CELLS IN PERIPH VEIN, PERC 21960D9 06/16/16 Internal Medicine Assmt/Plan - Assessment Assessment: sepsis shock pmn acute on crf anemia leukocytosis hypoglycemia mr cp elevated ammonia ESBL URINE MRSA NARES - Plan Plan: CT CHEST pulmo consult ivf for hydration f/u labs in am ivabx bronchodilators wound care Nutritional Asmnt/Malnutr-PDOC - Dietary Evaluation Malnutrition Findings (Please click <Entered> for more info): Nutritional Asmnt/Malnutrition Start: 09/22/16 12: 31 Text: Status: Complete Freq: Document 09/22/16 12:32 GSUN (Rec: 09/22/16 13:00 GSUN [id number]) Nutritional Asmnt/Malnutrition Patient General Information Nutritional Screening High Risk Screening Diagnosis Per ER: sepsis, UTI, HTN, possible PNA, elevated troponin Pertinent Medical Hx/Surgical Hx Per ER: HTN, DM, dyslipidemia, anemia, 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 RD consult for decubitus ulcer and trigger for BG >180. Discussed with RN regarding tube feeding regimens when tube feeding resumed. Unable to obtain new weight due to bedscale not properly calibrated. Current Diet Order/ Nutrition Support NPO Pertinent Medications Vitamin C, lipitor, D5, folate , novolog, novolin, cephulac, MOM, zofran, vancomycin, vitamin A and D, zinc sulfate Pertinent Labs 09/21: BUN 112H, creatinine 1. 6H, glucose 263H, A1c 6.5H, troponin 1.96H 09/22: Potassium 2.8L, BUN 74H (improving), creatinine 1.1 ( improved), glucose 278H POC glucose 58-303H Nutritional Hx/Data Height 4 ft 9 in Height (Calculated Centimeters) 144.8 Current Weight (lbs) 97 lb Weight (Calculated Kilograms) 44.0 Weight (Calculated Grams) 71950.5 Weight Status Approriate GI Symptoms Food Allergies No Cultural/Ethnic/Anabaptist Belief Unknown. 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 Problem Problem Altered nutrition related laboratory values related to Etiology DM aeb Signs/Symptoms: episodes of hypoglycemia and hyperglycemia, 58L and 303H 1. Problem Problem Increased protein and kcal needs related to Etiology hypermetabolic state aeb Signs/Symptoms: sepsis, possible PNA, mulitple ulcerations Intervention/Recommendation Comments 1. Recommend Diabetisource 50ml/hr x 24hrs, providing 1440kcal and 72g protein, for glycemic control and to better meet nutritional needs. 2. Recommend 1 packet Arginaid BID via g-tube for multiple ulcerations wound healing. 3. If episodes of hypoglycemia persists, consider without carbohydrate restriction with Fibersource HN at 50ml/hrs x 24hrs. Expected Outcomes/Goals Expected Outcomes/Goals 1. Pt to meet 100% of estimated nutritional needs on tube feeding + Arginaid with tolerance. Physician Parameters for PEM Serum Albumin (g/dl) 3.5 - 5.0 (Normal)
[2016-09-25] MEDS: Meropenem 1 gm in NS 0.9% 100 ML IV SCH (16:27)
[2016-09-25] MEDS: Insulin Detemir 100 units/mL 10mL Vial SUBQ SCH (16:36)
[2016-09-25] MEDS: Atorvastatin Calcium 10 MG TAB PO SCH (21:22)
[2016-09-26] MEDS: INSULIN ASPART, RECOMBINANT 100 UNITS/ML SUBQ SCH ×5 (00:18→21:43)
[2016-09-26] MEDS: Meropenem 1 gm in NS 0.9% 100 ML IV SCH ×3 (00:24→19:25)
--- NOTE | 2016-09-26 02:01 | Consultation ---
The patient of Dr. Sidhu. Thank you very much, Dr. Sidhu, for this consultation. HISTORY OF PRESENT ILLNESS: This is a 56-year-old female known to me from previous admissions. The patient was admitted for pneumonia, congestion and followup chest x-ray showed complete left lung atelectasis, which has happened for this patient in the past. The patient appears to be comfortable, not in acute distress. The patient has been treated for acute renal failure and UTI and sepsis. PAST MEDICAL HISTORY: Significant for cerebral palsy and dysphagia . REVIEW OF SYSTEMS: Unable to obtain because of the patient's condition. PHYSICAL EXAMINATION: GENERAL: The patient is awake, not communicative. VITAL SIGNS: Temperature is 97.1, pulse is 77, respiration is 22, blood pressure 106/46, saturations 100%. HEENT: Atraumatic, normocephalic. Pupils reactive to light and accommodation. Ears, nose and throat normal. NECK: Supple. No JVD. CHEST: There are decreased breath sounds on left side. Fair air entry, right side and no wheezing, no crackles. HEART: Regular rate and rhythm. ABDOMEN: Soft. EXTREMITIES: No edema. LABORATORY DATA: WBC 6.8, hemoglobin 9.7, hematocrit 29.5, platelets 157. Sodium was 146, potassium 4.8, BUN is 30, creatinine 1.0. BNP is 283. The chest x-ray, left lung atelectasis. IMPRESSION: This is a 56-year-old female with, 1. Pneumonia. 2. Urinary tract infection. 3. Left lung atelectasis, possibly secondary to mucus plugging. PLAN: 1. IV antibiotics. 2. Add CPT and Mucomyst. 3. Position the patient with the left chest elevated and followup chest x-ray; if no improvement, might need a bronchoscopy as a more invasive way to remove the mucus plugging. Continue to observe closely. I will follow the patient with you. JOB# [id number] NANCY
[2016-09-26] MEDS: Ipratropium Neb 0.5 mg/2.5 mL UD HHN SCH ×6 (03:07→23:06)
[2016-09-26] MEDS: Albuterol Nebulizer 2.5mg/3mL HHN SCH ×6 (03:07→23:06)
[2016-09-26] MEDS: Sodium Chloride 0.9% 1,000 ML IV SCH (06:01)
[2016-09-26 07:06] LABS: % BASOPHILS 0.3 % (0.0-2.0); % LYMPHOCYTES 18.9 % (20.0-50.0); % MONOCYTES 5.8 % (2.0-10.0); HEMATOCRIT 28.7 % (35.0-45.0); HEMOGLOBIN 9.4 gm/dL (11.7-15.5); MEAN CELL VOLUME 89.4 fl (81-100); MEAN CORPUSCULAR HEMOGLOBIN 29.3 pg (27.0-31.0); MEAN CORPUSCULAR HGB CONC 32.7 pg (28.0-36.0); MEAN PLATELET VOLUME 10.6 fl; NEUTROPHILE ABSOLUTE 3.2 Th/cmm (1.8-8.0); PLATELET COUNT 157 Th/cmm (150-400); RED BLOOD COUNT 3.22 Mil/cmm (3.80-5.10); RED CELL DISTRIBUTION WIDTH 16.8 % (11.5-20.0)
[2016-09-26 07:10] LABS: WHITE BLOOD COUNT 4.4 Th/cmm (4.8-10.8)
[2016-09-26 07:18] LABS: ANION GAP 10.1 (7.0-16.0); BUN - UREA NITROGEN 29 mg/dL (7-25); BUN/CREATININE RATIO 32.2; CALCIUM SERUM 9.1 mg/dL (8.6-10.3); CARBON DIOXIDE 22.4 mEq/L (21.0-31.0); CHLORIDE 120 mEq/L (98-107); CREATININE - SERUM 0.9 mg/dL (0.6-1.2); GLUCOSE 214 mg/dL (70-105); POTASSIUM SERUM 3.5 mEq/L (3.5-5.1); SODIUM SERUM 149 mEq/L (136-145)
[2016-09-26] MEDS: Vitamin A/Vitamin D 5 gm Packet TP SCH (09:00)
[2016-09-26] MEDS: Fenofibrate, Micronized 134 mg Cap GT SCH (09:00)
[2016-09-26] MEDS: NYSTATIN 100000 UNITS/GM POWD TP SCH ×2 (09:00→17:00)
[2016-09-26] MEDS: Multivitamin w/ Minerals Tab GT SCH (09:14)
[2016-09-26] MEDS: Lactulose 10 Gm/15 mL 30mL UDC GT SCH ×3 (09:15→20:57)
[2016-09-26] MEDS: Lactobacillus Rhamnosus 10 Billion CFU Capsule PO SCH (09:15)
[2016-09-26] MEDS: Insulin Detemir 100 units/mL 10mL Vial SUBQ SCH ×2 (09:17→19:38)
--- NOTE | 2016-09-26 10:31 | Diagnostic Imaging Report ---
CHEST X-RAY: AP view INDICATION: Shortness of breath COMPARISON: Chest x-ray 09/25/2016 FINDINGS: There has been mild improvement in left lung aeration. Left effusion is seen with left lung infiltrates. Cardiomegaly is noted. IMPRESSION: Mild improvement in left lung aeration. Persistent left effusion is seen with left lung infiltrates and probable persistent atelectasis.
--- NOTE | 2016-09-26 12:31 | Internal Medicine Prog Note ---
Internal Medicine Subjective - Subjective Patient seen and examined:: with staff, chart reviewed Patient is:: non-verbal, non-interactive, eyes closed, in bed Patient Complaints of:: congestion Per staff patient is:: no adverse event, confused, other (off levophed) Internal Medicine Objective - Results Result Diagrams: 09/26/16 06:40 09/26/16 06:40 Recent Labs: Laboratory Last Values WBC 4.4 Th/cmm (4.8-10.8) L D 09/26/16 06:40 RBC 3.22 Mil/cmm (3.80-5.10) L 09/26/16 06:40 Hgb 9.4 gm/dL (11.7-15.5) L 09/26/16 06:40 Hct 28.7 % (35.0-45.0) L 09/26/16 06:40 MCV 89.4 fl (81-100) 09/26/16 06:40 MCH 29.3 pg (27.0-31.0) 09/26/16 06:40 MCHC Differential 32.7 pg (28.0-36.0) 09/26/16 06:40 RDW 16.8 % (11.5-20.0) 09/26/16 06:40 Plt Count 157 Th/cmm (150-400) 09/26/16 06:40 MPV 10.6 fl 09/26/16 06:40 Neutrophils % 72.0 % (40.0-80.0) 09/26/16 06:40 Band Neutrophils % 11 % (0-10) H 09/22/16 04:49 Lymphocytes % 18.9 % (20.0-50.0) L 09/26/16 06:40 Monocytes % 5.8 % (2.0-10.0) 09/26/16 06:40 Eosinophils % 3.0 % (0.0-5.0) 09/26/16 06:40 Basophils % 0.3 % (0.0-2.0) 09/26/16 06:40 Neutrophils (Manual) 80 % (40-80) 09/22/16 04:49 Lymphocytes 3 % (20-50) L 09/22/16 04:49 Monocytes 4 % (2-10) 09/22/16 04:49 Eosinophils 2 % (0-5) 09/22/16 04:49 Platelet Estimate DECREASED PLATELETS (NORMAL) 09/22/16 04:49 Platelet Morphology GIANT PLATELETS SEEN (NORMAL) 09/22/16 04:49 Polychromasia 1+ 09/22/16 04:49 Anisocytosis 1+ 09/22/16 04:49 RBC Morph Micro Appear ABNORMAL (NORMAL) 09/22/16 04:49 PT 11.2 SECONDS (9.5-11.5) 09/21/16 09:13 INR 1.12 (0.5-1.4) 09/21/16 09:13 PTT (Actin FS) 23.6 SECONDS (26.0-38.0) L 09/21/16 09:13 Sodium 149 mEq/L (136-145) H 09/26/16 06:40 Potassium 3.5 mEq/L (3.5-5.1) 09/26/16 06:40 Chloride 120 mEq/L (98-107) H 09/26/16 06:40 Carbon Dioxide 22.4 mEq/L (21.0-31.0) 09/26/16 06:40 Anion Gap 10.1 (7.0-16.0) 09/26/16 06:40 BUN 29 mg/dL (7-25) H 09/26/16 06:40 Creatinine 0.9 mg/dL (0.6-1.2) 09/26/16 06:40 Est GFR ( Amer) > 60.0 ml/min (>90) 09/26/16 06:40 Est GFR (Non-Af Amer) > 60.0 ml/min 09/26/16 06:40 BUN/Creatinine Ratio 32.2 09/26/16 06:40 Glucose 214 mg/dL (70-105) H 09/26/16 06:40 POC Glucose 183 MG/DL (70 - 105) H 09/26/16 09:21 Hemoglobin A1c % 6.5 % (4.0-6.0) H 09/21/16 09:13 Whole Bld Lactic Acid 0.96 mmol/L (0.60-2.00) 09/21/16 22:05 Calcium 9.1 mg/dL (8.6-10.3) 09/26/16 06:40 Magnesium 2.9 mg/dL (1.9-2.7) H 09/23/16 04:37 Total Bilirubin 0.3 mg/dL (0.3-1.0) 09/21/16 09:13 AST 36 U/L (13-39) 09/21/16 09:13 ALT 18 U/L (7-52) 09/21/16 09:13 Alkaline Phosphatase 98 U/L (34-104) 09/21/16 09:13 Ammonia 106 umol/L (16-53) H 09/23/16 04:37 Troponin I 0.79 ng/mL (0.01-0.05) H* D 09/21/16 22:05 B-Natriuretic Peptide 283.0 pg/mL (5.0-100.0) H 09/25/16 05:00 Total Protein 7.4 gm/dL (6.0-8.3) 09/21/16 09:13 Albumin 3.5 gm/dL (3.7-5.3) L 09/21/16 09:13 Globulin 3.9 gm/dL 09/21/16 09:13 Albumin/Globulin Ratio 0.9 (1.0-1.8) L 09/21/16 09:13 Urine Source CATH 09/21/16 09:30 Urine Color RED 09/21/16 09:30 Urine Clarity CLOUDY (CLEAR) H 09/21/16 09:30 Urine pH 6.0 09/21/16 09:30 Ur Specific [place] 1.020 (1.005-1.030) 09/21/16 09:30 Urine Protein >300 mg/dL (NEGATIVE) H 09/21/16 09:30 Urine Glucose (UA) NEGATIVE mg/dL (NEGATIVE) 09/21/16 09:30 Urine Ketones TRACE mg/dL (NEGATIVE) 09/21/16 09:30 Urine Blood LARGE (NEGATIVE) H 09/21/16 09:30 Urine Nitrate NEGATIVE (NEGATIVE) 09/21/16 09:30 Urine Bilirubin NEGATIVE (NEGATIVE) 09/21/16 09:30 Urine Urobilinogen 0.2 E.U./dL (0.2 - 1.0) 09/21/16 09:30 Ur Leukocyte Esterase LARGE (NEGATIVE) H 09/21/16 09:30 Urine RBC >100 /hpf (0-5) H 09/21/16 09:30 Urine WBC 25-50 /hpf (0-5) H 09/21/16 09:30 Ur Epithelial Cells OCCASIONAL /lpf (FEW) 09/21/16 09:30 Urine Bacteria MANY /hpf (NONE SEEN) 09/21/16 09:30 Vancomycin Trough 20.4 ug/mL (10-20) H 09/23/16 16:20 Digoxin 1.9 ng/ml (0.8-2.0) 09/24/16 08:50 - Physical Exam Vitals and I&O: Vital Signs Temp 98.6 F 09/26/16 04:00 Pulse 81 09/26/16 11:27 Resp 20 09/26/16 11:27 BP 125/64 09/26/16 06:45 Pulse Ox 100 09/26/16 11:27 Intake & Output 09/25/16 09/26/16 09/26/16 18:59 06:59 18:59 Intake Total 564.178 6061.220 Output Total 900 800 Balance 17.556 554.220 Intake: Intake, IV Amount 357.556 874.220 Meropenem 1 gm In Sodium 100 100 Chloride 0.9% 100 ml @ 100 mls/hr IV Q8HR@0000, 0800,1600 [facility] Rx#: [id number] Norepinephrine 4 mg In 257.556 237.553 Dextrose 5% 250 ml @ 10 MCG/MIN 38.1 mls/hr IV TITR PRN Rx#:[id number] Sodium Chloride 0.9% 1, 536.667 000 ml @ 40 mls/hr IV . Q24H [facility] Rx#:[id number] Tube Feeding 480 480 Other 80 Output: Urine 900 800 Other: # Bowel Movements 1 Stool Characteristics Soft Brown Active Medications: Current Medications Acetaminophen (Tylenol 650mg/20.3ml Suspension) 650 mg GT Q4H PRN PRN Reason: MILD PAIN AND FEVER >101 Stop: 11/20/16 12:41 Acetaminophen/Hydrocodone Bitart ([place] 5mg/325mg) 1 tab GT Q4H PRN PRN Reason: Moderate-Severe Pain Stop: 11/20/16 12:41 Last Admin: 09/23/16 01:09 Dose: 1 tab Acetylcysteine (Mucomyst 20%) 3 ml HHN Q4HR [facility] Stop: 11/24/16 15:59 Last Admin: 09/26/16 10:59 Dose: 3 ml Albuterol Sulfate (Albuterol 2.5mg/3ml Neb Ud) 2.5 mg HHN Q4HRT [facility] Stop: 11/25/16 10:59 Last Admin: 09/26/16 10:59 Dose: 2.5 mg Ascorbic Acid (Vitamin C) 500 mg GT DAILY [facility] Stop: 11/21/16 08:59 Last Admin: 09/26/16 09:10 Dose: 500 mg Atorvastatin Calcium (Lipitor) 40 mg PO HS [facility] Stop: 11/20/16 20:59 Last Admin: 09/25/16 21:22 Dose: 40 mg Digoxin (Lanoxin) 0.25 mg GT DAILY [facility] Stop: 11/23/16 08:59 Last Admin: 09/25/16 08:25 Dose: Not Given Diltiazem HCl (Cardizem) 20 mg IVP Q4H PRN PRN Reason: HR Greater than 130 per min Stop: 11/20/16 12:45 Fenofibrate (Tricor) 134 mg GT DAILY [facility] Stop: 11/21/16 08:59 Last Admin: 09/25/16 08:25 Dose: 134 mg Folic Acid (Folate) 1 mg GT DAILY [facility] Stop: 11/21/16 08:59 Last Admin: 09/25/16 08:28 Dose: 1 mg Guaifenesin (Robitussin) 200 mg GT Q4HR PRN PRN Reason: Cough or Congestion Stop: 11/20/16 12:41 Norepinephrine Bitartrate 4 mg (/ Dextrose) 254 mls @ 38.1 mls/hr IV TITR PRN; Protocol; 10 MCG/MIN PRN Reason: BP MAINTENANCE (PER PROTOCOL) Stop: 11/20/16 23:39 Last Admin: 09/26/16 05:53 Dose: 4 mcg/min, 15.24 mls/hr Meropenem 1 gm/ Sodium (Chloride) 100 mls @ 100 mls/hr IV Q8HR@0000,0800,1600 [facility] Stop: 11/24/16 15:59 Last Infusion: 09/26/16 01:24 Dose: Infused Sodium Chloride (Nacl 0.9%) 1,000 mls @ 40 mls/hr IV .Q24H [facility] Stop: 11/24/16 16:04 Last Admin: 09/26/16 06:01 Dose: 40 mls/hr Insulin Aspart (Novolog) 0 units SUBQ ACHS [place] PRN Reason: Protocol Stop: 11/20/16 16:29 Last Admin: 09/26/16 08:06 Dose: 2 units Insulin Detemir (Levemir Insulin) 10 units SUBQ BID [place] PRN Reason: Protocol Stop: 11/24/16 16:59 Last Admin: 09/26/16 09:17 Dose: 10 units Ipratropium [place] (Atrovent Neb 0.5mg/2.5ml) 0.5 mg HHN Q4HRT [facility] Stop: 11/25/16 10:59 Last Admin: 09/26/16 10:59 Dose: 0.5 mg Lactobacillus Rhamnosus (Culturelle) 1 each PO DAILY [facility] Stop: 11/24/16 08:59 Last Admin: 09/26/16 09:15 Dose: 1 each Lactulose (Cephulac) 20 gm GT TID [facility] Stop: 11/22/16 13:59 Last Admin: 09/26/16 09:15 Dose: 20 gm Loperamide HCl (Imodium) 2 mg GT Q4H PRN PRN Reason: DIARRHEA Stop: 11/20/16 15:12 Magnesium Hydroxide (Milk Of Magnesia) 30 ml GT DAILY PRN PRN Reason: Constipation Stop: 11/20/16 12:41 Midodrine (Proamatine) 5 mg GT Q8H [facility] Stop: 11/23/16 19:59 Last Admin: 09/26/16 04:00 Dose: 5 mg Miscellaneous (Probiotic Screen) 1 ea PRN PRN PRN Reason: PROTOCOL Stop: 11/24/16 08:48 Nystatin (Nystop) 100,000 units TP BID [facility] Stop: 11/21/16 08:59 Last Admin: 09/25/16 16:29 Dose: 100,000 units Ondansetron HCl (Zofran) 4 mg IV Q8H PRN PRN Reason: Nausea / Vomiting Stop: 11/20/16 12:45 Pioglitazone HCl (Actos) 30 mg GT DAILY [facility] Stop: 11/21/16 08:59 Last Admin: 09/26/16 09:13 Dose: 30 mg Rivaroxaban (Xarelto) 10 mg GT DAILY [facility] Stop: 11/21/16 10:59 Last Admin: 09/26/16 09:12 Dose: 10 mg Vitamin A (Vitamin A & D) 5 gm TP DAILY [facility] Stop: 11/21/16 14:59 Last Admin: 09/25/16 08:26 Dose: 5 gm Zinc Sulfate (Zinc Sulfate) 220 mg GT DAILY [facility] Stop: 11/21/16 08:59 Last Admin: 09/26/16 09:11 Dose: 220 mg General: lethargic, demented HEENT: NC/AT, PERRLA Neck: Supple, No JVD Lungs: congested, rales Cardiovascular: RRR, Normal S1, Normal S2 Abdomen: soft non-tender, +GT, positive bowel sound Extremities: excoriation, contracture Neurological: no change - Procedures Procedures: Procedures Procedure Code Date BLOOD TRANSFUSION SERVICE 96569 03/06/16 CHANGE GASTROSTOMY TUBE 55623 06/09/14 AGNIESZKA BONE 20 SQ CM/< 32260 01/28/15 DIAGNOSTIC COLONOSCOPY 89963 03/06/16 EGD BIOPSY SINGLE/MULTIPLE 99675 03/06/16 EXCISION OF DUODENUM, ENDO, DIAGN [id number] 03/06/16 EXCISION OF STOMACH, ENDO, DIAGN [id number] 03/06/16 IMMOBILIZ/WOUND ATTN NEC 93.59 01/28/15 INSERT INDWELLING CATH 57.94 10/18/05 INSERT TEMP BLADDER CATH 46295 10/18/05 INSPECTION OF LOWER INTESTINAL TRACT, ENDO [id number] 03/06/16 INSPECTION OF UPPER INTESTINAL TRACT, ENDO [id number] 10/27/15 LOC EXC BONE LESION NEC 77.69 01/28/15 PACKED CELL TRANSFUSION 99.04 10/20/14 REPLACE GASTROSTOMY TUBE 97.02 06/09/14 TRANSFUSE NONAUT RED BLOOD CELLS IN PERIPH VEIN, PERC 49303Q0 06/16/16 Internal Medicine Assmt/Plan - Assessment Assessment: sepsis shock sp levophed pmn acute on crf anemia leukocytosis hypoglycemia mr cp elevated ammonia - Plan Plan: cont on iv abx, on zosyn and vanco will hold all routine insulin cont on levophed prn critical poor access, will order midline ddw rn see order seen by dr martínez Nutritional Asmnt/Malnutr-PDOC - Dietary Evaluation Malnutrition Findings (Please click <Entered> for more info): Nutritional Asmnt/Malnutrition Start: 09/22/16 12: 31 Text: Status: Complete Freq: Document 09/22/16 12:32 GSUN (Rec: 09/22/16 13:00 GSUN [email or web address]) Nutritional Asmnt/Malnutrition Patient General Information Nutritional Screening High Risk Screening Diagnosis Per ER: sepsis, UTI, HTN, possible PNA, elevated troponin Pertinent Medical Hx/Surgical Hx Per ER: HTN, DM, dyslipidemia, anemia, 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 RD consult for decubitus ulcer and trigger for BG >180. Discussed with RN regarding tube feeding regimens when tube feeding resumed. Unable to obtain new weight due to bedscale not properly calibrated. Current Diet Order/ Nutrition Support NPO Pertinent Medications Vitamin C, lipitor, D5, folate , novolog, novolin, cephulac, MOM, zofran, vancomycin, vitamin A and D, zinc sulfate Pertinent Labs 09/21: BUN 112H, creatinine 1. 6H, glucose 263H, A1c 6.5H, troponin 1.96H 09/22: Potassium 2.8L, BUN 74H (improving), creatinine 1.1 ( improved), glucose 278H POC glucose 58-303H Nutritional Hx/Data Height 1.45 m Height (Calculated Centimeters) 144.8 Current Weight (lbs) 43.998 kg Weight (Calculated Kilograms) 44.0 Weight (Calculated Grams) 34957.5 Weight Status Approriate GI Symptoms Food Allergies No Cultural/Ethnic/Religion Belief Unknown. 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 Problem Problem Altered nutrition related laboratory values related to Etiology DM aeb Signs/Symptoms: episodes of hypoglycemia and hyperglycemia, 58L and 303H 1. Problem Problem Increased protein and kcal needs related to Etiology hypermetabolic state aeb Signs/Symptoms: sepsis, possible PNA, mulitple ulcerations Intervention/Recommendation Comments 1. Recommend Diabetisource 50ml/hr x 24hrs, providing 1440kcal and 72g protein, for glycemic control and to better meet nutritional needs. 2. Recommend 1 packet Arginaid BID via g-tube for multiple ulcerations wound healing. 3. If episodes of hypoglycemia persists, consider without carbohydrate restriction with Fibersource HN at 50ml/hrs x 24hrs. Expected Outcomes/Goals Expected Outcomes/Goals 1. Pt to meet 100% of estimated nutritional needs on tube feeding + Arginaid with tolerance. Physician Parameters for PEM Serum Albumin (g/dl) 3.5 - 5.0 (Normal)
[2016-09-26] MEDS: DIGOXIN 0.05 MG/ML GT SCH (12:33)
--- NOTE | 2016-09-26 15:05 | Diagnostic Imaging Report ---
CT Chest without IV contrast HISTORY: Pneumonia COMPARISON: Chest x-ray on 09/26/[address] of the chest on 09/19/2015. Technique: Axial images were obtained from the base of the neck to the upper abdomen without IV contrast. Reconstructions were made. Total DLP to256 CTD I 7.7 Findings: Exam is limited due to lack of IV contrast and motion. There is gaseous distention of the esophagus. A large hiatal hernia is seen into the left hemithorax with fluid-filled stomach. Heart size is mildly prominent. Mild atherosclerosis is noted. There is persistent volume loss of the left lung with partial left lung collapse and consolidation. Trace left pleural effusion is noted. There is compensatory hyperinflation of the right lung. No focal consolidation the right lung. The upper abdomen demonstrates a 1 cm calcification possibly in the gallbladder neck or biliary system. Borderline prominent spleen are noted. Multiple bilateral renal stones are seen the largest within the left renal collecting system measuring 1.6 cm. Right renal atrophy is noted. There is partially visualized bilateral hydronephrosis. Left renal cysts are noted. A right upper extremity vascular catheter is seen terminating along the right axillary region with diffuse pockets of gas along the right axillary region, right chest wall and base of the neck on the right side. Severe scoliosis is noted. IMPRESSION: Persistent volume loss and partial collapse of the left lung with air bronchograms and consolidation. There is probable superimposed pneumonia. Underlying postobstructive process and neoplastic etiology cannot be excluded. Large hiatal hernia with herniation of half of the stomach into the left hemithorax. Right upper extremity vascular catheter noted. Multiple pockets of gas emphysema is seen along the right axillary region, right upper lateral chest wall and base of the neck on the right side. Clinical correlation and follow-up is recommended. The patient's right upper extremity vascular catheter should also be assessed. Possible stone within the gallbladder neck or common bile duct. Recommend short-term follow-up with ultrasound or MRCP. Bilateral renal stones and bilateral hydronephrosis.. Severe scoliosis. Results were administered to the referring team on 09/26/2016.
[2016-09-26] MEDS: Atorvastatin Calcium 10 MG TAB PO SCH (20:56)
[2016-09-27] MEDS: Meropenem 1 gm in NS 0.9% 100 ML IV SCH ×3 (00:33→16:27)
[2016-09-27] MEDS: Sodium Chloride 0.9% 1,000 ML IV SCH ×2 (02:24→21:18)
[2016-09-27] MEDS: Albuterol Nebulizer 2.5mg/3mL HHN SCH ×6 (02:58→23:13)
[2016-09-27] MEDS: Ipratropium Neb 0.5 mg/2.5 mL UD HHN SCH ×6 (02:58→23:13)
[2016-09-27 05:29] LABS: % BASOPHILS 0.1 % (0.0-2.0); % EOSINOPHILS 2.2 % (0.0-5.0); % LYMPHOCYTES 12.5 % (20.0-50.0); % MONOCYTES 5.1 % (2.0-10.0); % NEUTROPHILS 80.1 % (40.0-80.0); HEMATOCRIT 28.5 % (35.0-45.0); HEMOGLOBIN 9.3 gm/dL (11.7-15.5); MEAN CELL VOLUME 89.3 fl (81-100); MEAN CORPUSCULAR HEMOGLOBIN 29.2 pg (27.0-31.0); MEAN CORPUSCULAR HGB CONC 32.6 pg (28.0-36.0); MEAN PLATELET VOLUME 9.8 fl; NEUTROPHILE ABSOLUTE 4.4 Th/cmm (1.8-8.0); RED BLOOD COUNT 3.19 Mil/cmm (3.80-5.10); RED CELL DISTRIBUTION WIDTH 17.3 % (11.5-20.0)
[2016-09-27 05:39] LABS: ANION GAP 9.8 (7.0-16.0); BUN - UREA NITROGEN 28 mg/dL (7-25); CALCIUM SERUM 9.1 mg/dL (8.6-10.3); CARBON DIOXIDE 24.9 mEq/L (21.0-31.0); CHLORIDE 120 mEq/L (98-107); CREATININE - SERUM 0.7 mg/dL (0.6-1.2); GLUCOSE 133 mg/dL (70-105); POTASSIUM SERUM 3.7 mEq/L (3.5-5.1); SODIUM SERUM 151 mEq/L (136-145)
[2016-09-27 05:41] LABS: WHITE BLOOD COUNT 5.5 Th/cmm (4.8-10.8)
[2016-09-27 05:42] LABS: PLATELET COUNT 189 Th/cmm (150-400)
[2016-09-27] MEDS: INSULIN ASPART, RECOMBINANT 100 UNITS/ML SUBQ SCH ×4 (06:54→21:00)
[2016-09-27] MEDS: Multivitamin w/ Minerals Tab GT SCH (08:27)
[2016-09-27] MEDS: Lactulose 10 Gm/15 mL 30mL UDC GT SCH ×2 (08:27→16:01)
[2016-09-27] MEDS: Lactobacillus Rhamnosus 10 Billion CFU Capsule PO SCH (08:28)
[2016-09-27] MEDS: DIGOXIN 0.05 MG/ML GT SCH (08:29)
[2016-09-27] MEDS: Insulin Detemir 100 units/mL 10mL Vial SUBQ SCH ×2 (08:59→17:00)
[2016-09-27] MEDS: Vitamin A/Vitamin D 5 gm Packet TP SCH (09:54)
[2016-09-27] MEDS: NYSTATIN 100000 UNITS/GM POWD TP SCH (09:54)
--- NOTE | 2016-09-27 11:18 | Internal Medicine Prog Note ---
Internal Medicine Subjective - Subjective Service Date: 09/27/16 Patient seen and examined:: with staff Patient is:: awake Per staff patient is:: no adverse event Internal Medicine Objective - Results Result Diagrams: 09/27/16 04:56 09/27/16 04:56 Recent Labs: Laboratory Last Values WBC 5.5 Th/cmm (4.8-10.8) D 09/27/16 04:56 RBC 3.19 Mil/cmm (3.80-5.10) L 09/27/16 04:56 Hgb 9.3 gm/dL (11.7-15.5) L 09/27/16 04:56 Hct 28.5 % (35.0-45.0) L 09/27/16 04:56 MCV 89.3 fl (81-100) 09/27/16 04:56 MCH 29.2 pg (27.0-31.0) 09/27/16 04:56 MCHC Differential 32.6 pg (28.0-36.0) 09/27/16 04:56 RDW 17.3 % (11.5-20.0) 09/27/16 04:56 Plt Count 189 Th/cmm (150-400) D 09/27/16 04:56 MPV 9.8 fl 09/27/16 04:56 Neutrophils % 80.1 % (40.0-80.0) H 09/27/16 04:56 Band Neutrophils % 11 % (0-10) H 09/22/16 04:49 Lymphocytes % 12.5 % (20.0-50.0) L 09/27/16 04:56 Monocytes % 5.1 % (2.0-10.0) 09/27/16 04:56 Eosinophils % 2.2 % (0.0-5.0) 09/27/16 04:56 Basophils % 0.1 % (0.0-2.0) 09/27/16 04:56 Neutrophils (Manual) 80 % (40-80) 09/22/16 04:49 Lymphocytes 3 % (20-50) L 09/22/16 04:49 Monocytes 4 % (2-10) 09/22/16 04:49 Eosinophils 2 % (0-5) 09/22/16 04:49 Platelet Estimate DECREASED PLATELETS (NORMAL) 09/22/16 04:49 Platelet Morphology GIANT PLATELETS SEEN (NORMAL) 09/22/16 04:49 Polychromasia 1+ 09/22/16 04:49 Anisocytosis 1+ 09/22/16 04:49 RBC Morph Micro Appear ABNORMAL (NORMAL) 09/22/16 04:49 PT 11.2 SECONDS (9.5-11.5) 09/21/16 09:13 INR 1.12 (0.5-1.4) 09/21/16 09:13 PTT (Actin FS) 23.6 SECONDS (26.0-38.0) L 09/21/16 09:13 Sodium 151 mEq/L (136-145) H 09/27/16 04:56 Potassium 3.7 mEq/L (3.5-5.1) 09/27/16 04:56 Chloride 120 mEq/L (98-107) H 09/27/16 04:56 Carbon Dioxide 24.9 mEq/L (21.0-31.0) 09/27/16 04:56 Anion Gap 9.8 (7.0-16.0) 09/27/16 04:56 BUN 28 mg/dL (7-25) H 09/27/16 04:56 Creatinine 0.7 mg/dL (0.6-1.2) 09/27/16 04:56 Est GFR ( Amer) > 60.0 ml/min (>90) 09/27/16 04:56 Est GFR (Non-Af Amer) > 60.0 ml/min 09/27/16 04:56 BUN/Creatinine Ratio 40.0 09/27/16 04:56 Glucose 133 mg/dL (70-105) H 09/27/16 04:56 POC Glucose 176 MG/DL (70 - 105) H 09/27/16 08:49 Hemoglobin A1c % 6.5 % (4.0-6.0) H 09/21/16 09:13 Whole Bld Lactic Acid 0.96 mmol/L (0.60-2.00) 09/21/16 22:05 Calcium 9.1 mg/dL (8.6-10.3) 09/27/16 04:56 Magnesium 2.9 mg/dL (1.9-2.7) H 09/23/16 04:37 Total Bilirubin 0.3 mg/dL (0.3-1.0) 09/27/16 04:56 Direct Bilirubin 0.07 mg/dL (0.0-0.2) 09/27/16 04:56 AST 36 U/L (13-39) 09/21/16 09:13 ALT 18 U/L (7-52) 09/21/16 09:13 Alkaline Phosphatase 98 U/L (34-104) 09/21/16 09:13 Ammonia 106 umol/L (16-53) H 09/23/16 04:37 Troponin I 0.79 ng/mL (0.01-0.05) H* D 09/21/16 22:05 B-Natriuretic Peptide 170.0 pg/mL (5.0-100.0) H 09/27/16 04:56 Total Protein 7.4 gm/dL (6.0-8.3) 09/21/16 09:13 Albumin 3.5 gm/dL (3.7-5.3) L 09/21/16 09:13 Globulin 3.9 gm/dL 09/21/16 09:13 Albumin/Globulin Ratio 0.9 (1.0-1.8) L 09/21/16 09:13 Urine Source CATH 09/21/16 09:30 Urine Color RED 09/21/16 09:30 Urine Clarity CLOUDY (CLEAR) H 09/21/16 09:30 Urine pH 6.0 09/21/16 09:30 Ur Specific [place] 1.020 (1.005-1.030) 09/21/16 09:30 Urine Protein >300 mg/dL (NEGATIVE) H 09/21/16 09:30 Urine Glucose (UA) NEGATIVE mg/dL (NEGATIVE) 09/21/16 09:30 Urine Ketones TRACE mg/dL (NEGATIVE) 09/21/16 09:30 Urine Blood LARGE (NEGATIVE) H 09/21/16 09:30 Urine Nitrate NEGATIVE (NEGATIVE) 09/21/16 09:30 Urine Bilirubin NEGATIVE (NEGATIVE) 09/21/16 09:30 Urine Urobilinogen 0.2 E.U./dL (0.2 - 1.0) 09/21/16 09:30 Ur Leukocyte Esterase LARGE (NEGATIVE) H 09/21/16 09:30 Urine RBC >100 /hpf (0-5) H 09/21/16 09:30 Urine WBC 25-50 /hpf (0-5) H 09/21/16 09:30 Ur Epithelial Cells OCCASIONAL /lpf (FEW) 09/21/16 09:30 Urine Bacteria MANY /hpf (NONE SEEN) 09/21/16 09:30 Vancomycin Trough 20.4 ug/mL (10-20) H 09/23/16 16:20 Digoxin 1.9 ng/ml (0.8-2.0) 09/24/16 08:50 - Physical Exam Vitals and I&O: Vital Signs Temp 97.1 F 09/27/16 08:00 Pulse 98 09/27/16 10:00 Resp 15 09/27/16 10:00 BP 124/79 09/27/16 10:00 Pulse Ox 100 09/27/16 10:00 Intake & Output 09/26/16 09/27/16 09/27/16 18:59 06:59 18:59 Intake Total 700 1015.333 Output Total 800 Balance -100 1015.333 Intake: Intake, IV Amount 100 1015.333 Meropenem 1 gm In Sodium 100 200 Chloride 0.9% 100 ml @ 100 mls/hr IV Q8HR@0000, 0800,1600 [facility] Rx#: [id number] Sodium Chloride 0.9% 1, 815.333 000 ml @ 40 mls/hr IV . Q24H [facility] Rx#:[id number] Tube Feeding 600 Output: Urine 800 Other: # Bowel Movements 1 Active Medications: Current Medications Acetaminophen (Tylenol 650mg/20.3ml Suspension) 650 mg GT Q4H PRN PRN Reason: MILD PAIN AND FEVER >101 Stop: 11/20/16 12:41 Acetaminophen/Hydrocodone Bitart ([place] 5mg/325mg) 1 tab GT Q4H PRN PRN Reason: Moderate-Severe Pain Stop: 11/20/16 12:41 Last Admin: 09/23/16 01:09 Dose: 1 tab Acetylcysteine (Mucomyst 20%) 3 ml HHN Q4HR [facility] Stop: 11/24/16 15:59 Last Admin: 09/27/16 07:43 Dose: 3 ml Albuterol Sulfate (Albuterol 2.5mg/3ml Neb Ud) 2.5 mg HHN Q4HRT [facility] Stop: 11/25/16 10:59 Last Admin: 09/27/16 07:42 Dose: 2.5 mg Ascorbic Acid (Vitamin C) 500 mg GT DAILY [facility] Stop: 11/21/16 08:59 Last Admin: 09/27/16 08:22 Dose: 500 mg Atorvastatin Calcium (Lipitor) 40 mg PO HS [facility] Stop: 11/20/16 20:59 Last Admin: 09/26/16 20:56 Dose: 40 mg Dextrose (D50w) 50 ml IVP PRN PRN PRN Reason: blood sugar < 60 Stop: 11/25/16 21:35 Digoxin (Lanoxin) 0.25 mg GT DAILY [facility] Stop: 11/23/16 08:59 Last Admin: 09/27/16 08:29 Dose: 0.25 mg Diltiazem HCl (Cardizem) 20 mg IVP Q4H PRN PRN Reason: HR Greater than 130 per min Stop: 11/20/16 12:45 Fenofibrate (Tricor) 134 mg GT DAILY [facility] Stop: 11/21/16 08:59 Last Admin: 09/26/16 09:00 Dose: 134 mg Folic Acid (Folate) 1 mg GT DAILY [facility] Stop: 11/21/16 08:59 Last Admin: 09/27/16 08:30 Dose: 1 mg Guaifenesin (Robitussin) 200 mg GT Q4HR PRN PRN Reason: Cough or Congestion Stop: 11/20/16 12:41 Norepinephrine Bitartrate 4 mg (/ Dextrose) 254 mls @ 38.1 mls/hr IV TITR PRN; Protocol; 10 MCG/MIN PRN Reason: BP MAINTENANCE (PER PROTOCOL) Stop: 11/20/16 23:39 Last Admin: 09/26/16 05:53 Dose: 4 mcg/min, 15.24 mls/hr Meropenem 1 gm/ Sodium (Chloride) 100 mls @ 100 mls/hr IV Q8HR@0000,0800,1600 [facility] Stop: 11/24/16 15:59 Last Admin: 09/27/16 08:14 Dose: 100 mls/hr Sodium Chloride (Nacl 0.9%) 1,000 mls @ 40 mls/hr IV .Q24H [facility] Stop: 11/24/16 16:04 Last Admin: 09/27/16 02:24 Dose: 40 mls/hr Insulin Aspart (Novolog) 0 units SUBQ ACHS [facility] PRN Reason: Protocol Stop: 11/20/16 16:29 Last Admin: 09/27/16 06:54 Dose: Not Given Insulin Detemir (Levemir Insulin) 10 units SUBQ BID [facility] PRN Reason: Protocol Stop: 11/24/16 16:59 Last Admin: 09/27/16 08:59 Dose: 10 units Ipratropium [place] (Atrovent Neb 0.5mg/2.5ml) 0.5 mg HHN Q4HRT [facility] Stop: 11/25/16 10:59 Last Admin: 09/27/16 07:42 Dose: 0.5 mg Lactobacillus Rhamnosus (Culturelle) 1 each PO DAILY [facility] Stop: 11/24/16 08:59 Last Admin: 09/27/16 08:28 Dose: 1 each Lactulose (Cephulac) 20 gm GT TID [facility] Stop: 11/22/16 13:59 Last Admin: 09/27/16 08:27 Dose: 20 gm Loperamide HCl (Imodium) 2 mg GT Q4H PRN PRN Reason: DIARRHEA Stop: 11/20/16 15:12 Magnesium Hydroxide (Milk Of Magnesia) 30 ml GT DAILY PRN PRN Reason: Constipation Stop: 11/20/16 12:41 Midodrine (Proamatine) 5 mg GT Q8H [facility] Stop: 11/23/16 19:59 Last Admin: 09/27/16 04:12 Dose: 5 mg Miscellaneous (Probiotic Screen) 1 ea MC PRN PRN PRN Reason: PROTOCOL Stop: 11/24/16 08:48 Nystatin (Nystop) 100,000 units TP BID [facility] Stop: 11/21/16 08:59 Last Admin: 09/27/16 09:54 Dose: 100,000 units Ondansetron HCl (Zofran) 4 mg IV Q8H PRN PRN Reason: Nausea / Vomiting Stop: 11/20/16 12:45 Pioglitazone HCl (Actos) 30 mg GT DAILY [facility] Stop: 11/21/16 08:59 Last Admin: 09/27/16 08:26 Dose: 30 mg Rivaroxaban (Xarelto) 10 mg GT DAILY [facility] Stop: 11/21/16 10:59 Last Admin: 09/27/16 08:25 Dose: 10 mg Vitamin A (Vitamin A & D) 5 gm TP DAILY [facility] Stop: 11/21/16 14:59 Last Admin: 09/27/16 09:54 Dose: 5 gm Zinc Sulfate (Zinc Sulfate) 220 mg GT DAILY [facility] Stop: 11/21/16 08:59 Last Admin: 09/27/16 08:24 Dose: 220 mg General: weak, alert HEENT: NC/AT, PERRLA Neck: Supple Lungs: congested Cardiovascular: RRR, Normal S1, Normal S2 Abdomen: soft non-tender, non-distended, +GT - Procedures Procedures: Procedures Procedure Code Date BLOOD TRANSFUSION SERVICE 72134 03/06/16 CHANGE GASTROSTOMY TUBE 09230 06/09/14 AGNIESZKA BONE 20 SQ CM/< 07832 01/28/15 DIAGNOSTIC COLONOSCOPY 72298 03/06/16 EGD BIOPSY SINGLE/MULTIPLE 83858 03/06/16 EXCISION OF DUODENUM, ENDO, DIAGN [id number] 03/06/16 EXCISION OF STOMACH, ENDO, DIAGN [id number] 03/06/16 IMMOBILIZ/WOUND ATTN NEC 93.59 01/28/15 INSERT INDWELLING CATH 57.94 10/18/05 INSERT TEMP BLADDER CATH 20768 10/18/05 INSPECTION OF LOWER INTESTINAL TRACT, ENDO [id number] 03/06/16 INSPECTION OF UPPER INTESTINAL TRACT, ENDO [id number] 10/27/15 LOC EXC BONE LESION NEC 77.69 01/28/15 PACKED CELL TRANSFUSION 99.04 10/20/14 REPLACE GASTROSTOMY TUBE 97.02 06/09/14 TRANSFUSE NONAUT RED BLOOD CELLS IN PERIPH VEIN, PERC 24214I6 06/16/16 Internal Medicine Assmt/Plan - Assessment Assessment: sepsis shock pmn acute on crf anemia leukocytosis hypoglycemia mr cp elevated ammonia ESBL URINE MRSA NARES - Plan Plan: ivf for hydration f/u labs in am ivabx bronchodilators wound care Nutritional Asmnt/Malnutr-PDOC - Dietary Evaluation Malnutrition Findings (Please click <Entered> for more info): Nutritional Asmnt/Malnutrition Start: 09/22/16 12: 31 Text: Status: Complete Freq: Document 09/22/16 12:32 GSUN (Rec: 09/22/16 13:00 GSUN [email or web address]) Nutritional Asmnt/Malnutrition Patient General Information Nutritional Screening High Risk Screening Diagnosis Per ER: sepsis, UTI, HTN, possible PNA, elevated troponin Pertinent Medical Hx/Surgical Hx Per ER: HTN, DM, dyslipidemia, anemia, 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 RD consult for decubitus ulcer and trigger for BG >180. Discussed with RN regarding tube feeding regimens when tube feeding resumed. Unable to obtain new weight due to bedscale not properly calibrated. Current Diet Order/ Nutrition Support NPO Pertinent Medications Vitamin C, lipitor, D5, folate , novolog, novolin, cephulac, MOM, zofran, vancomycin, vitamin A and D, zinc sulfate Pertinent Labs 09/21: BUN 112H, creatinine 1. 6H, glucose 263H, A1c 6.5H, troponin 1.96H 09/22: Potassium 2.8L, BUN 74H (improving), creatinine 1.1 ( improved), glucose 278H POC glucose 58-303H Nutritional Hx/Data Height 4 ft 9 in Height (Calculated Centimeters) 144.8 Current Weight (lbs) 97 lb Weight (Calculated Kilograms) 44.0 Weight (Calculated Grams) 25333.5 Weight Status Approriate GI Symptoms Food Allergies No Cultural/Ethnic/Protestant Belief Unknown. Usual diet at home [place]: glucerna 1.2 at 60ml/hr x 20hrs with 200ml flush Q4hrs Skin Integrity/Comment: horseshoer: ulceration sacrum, right tow, right foot, left foot Estimated Nutritional Goals BEE in Kcals: Using Current wt Calories/Kcals/Kg 30-35kcal/kg Kcals Calculated 1320-1544kcal Protein: Using Current wt Protein g/k.5-1.7g/kg Protein Calculated 66-75g Fluid: ml 1320-1544ml (1ml/kcal) Nutritional Problem 2. Problem Problem Altered nutrition related laboratory values related to Etiology DM aeb Signs/Symptoms: episodes of hypoglycemia and hyperglycemia, 58L and 303H 1. Problem Problem Increased protein and kcal needs related to Etiology hypermetabolic state aeb Signs/Symptoms: sepsis, possible PNA, mulitple ulcerations Intervention/Recommendation Comments 1. Recommend Diabetisource 50ml/hr x 24hrs, providing 1440kcal and 72g protein, for glycemic control and to better meet nutritional needs. 2. Recommend 1 packet Arginaid BID via g-tube for multiple ulcerations wound healing. 3. If episodes of hypoglycemia persists, consider without carbohydrate restriction with Fibersource HN at 50ml/hrs x 24hrs. Expected Outcomes/Goals Expected Outcomes/Goals 1. Pt to meet 100% of estimated nutritional needs on tube feeding + Arginaid with tolerance. Physician Parameters for PEM Serum Albumin (g/dl) 3.5 - 5.0 (Normal)
[2016-09-27] MEDS: Fenofibrate, Micronized 134 mg Cap GT SCH (11:31)
[2016-09-27] MEDS: Diltiazem 5 mg/mL 5mL Vial IVP PRN ×2 (17:15→21:27)
[2016-09-27] MEDS: HYDROmorphone 1 mg/mL 1mL Syr IVP PRN (20:21)
[2016-09-27] MEDS: Dextrose 50% 50 mL Abboject IVP PRN ×2 (21:13→21:49)
[2016-09-27] MEDS: Atorvastatin Calcium 10 MG TAB PO SCH (21:23)
[2016-09-28] MEDS: HYDROmorphone 1 mg/mL 1mL Syr IVP PRN ×3 (00:51→19:48)
[2016-09-28] MEDS: Ipratropium Neb 0.5 mg/2.5 mL UD HHN SCH ×6 (03:20→22:23)
[2016-09-28] MEDS: Albuterol Nebulizer 2.5mg/3mL HHN SCH ×6 (03:20→22:23)
[2016-09-28 05:21] LABS: % BASOPHILS 0.1 % (0.0-2.0); % EOSINOPHILS 2.4 % (0.0-5.0); % LYMPHOCYTES 22.9 % (20.0-50.0); % MONOCYTES 6.4 % (2.0-10.0); % NEUTROPHILS 68.2 % (40.0-80.0); HEMOGLOBIN 10.4 gm/dL (11.7-15.5); MEAN CELL VOLUME 89.6 fl (81-100); MEAN CORPUSCULAR HEMOGLOBIN 28.7 pg (27.0-31.0); MEAN CORPUSCULAR HGB CONC 32.1 pg (28.0-36.0); MEAN PLATELET VOLUME 10.2 fl; NEUTROPHILE ABSOLUTE 4.2 Th/cmm (1.8-8.0); PLATELET COUNT 194 Th/cmm (150-400); RED BLOOD COUNT 3.63 Mil/cmm (3.80-5.10); RED CELL DISTRIBUTION WIDTH 17.1 % (11.5-20.0); WHITE BLOOD COUNT 6.1 Th/cmm (4.8-10.8)
[2016-09-28 05:33] LABS: HEMATOCRIT 32.5 % (35.0-45.0)
[2016-09-28 06:13] LABS: ANION GAP 8.1 (7.0-16.0); BUN - UREA NITROGEN 25 mg/dL (7-25); BUN/CREATININE RATIO 35.7; CARBON DIOXIDE 22.2 mEq/L (21.0-31.0); CHLORIDE 121 mEq/L (98-107); CREATININE - SERUM 0.7 mg/dL (0.6-1.2); GLUCOSE 85 mg/dL (70-105); POTASSIUM SERUM 4.3 mEq/L (3.5-5.1); SODIUM SERUM 147 mEq/L (136-145)
[2016-09-28 07:24] LABS: DIGOXIN 2.7 ng/ml (0.8-2.0)
[2016-09-28] MEDS: INSULIN ASPART, RECOMBINANT 100 UNITS/ML SUBQ SCH ×4 (07:26→20:54)
[2016-09-28] MEDS: Meropenem 1 gm in NS 0.9% 100 ML IV SCH ×4 (08:00→23:37)
[2016-09-28] MEDS: Diltiazem 5 mg/mL 5mL Vial IVP PRN (08:05)
[2016-09-28] MEDS: Vitamin A/Vitamin D 5 gm Packet TP SCH (08:33)
[2016-09-28] MEDS: Lactobacillus Rhamnosus 10 Billion CFU Capsule PO SCH (08:34)
[2016-09-28] MEDS: Multivitamin w/ Minerals Tab GT SCH (08:34)
[2016-09-28] MEDS: DIGOXIN 0.05 MG/ML GT SCH (08:35)
[2016-09-28] MEDS: Lactulose 10 Gm/15 mL 30mL UDC GT SCH (08:36)
[2016-09-28] MEDS: NYSTATIN 100000 UNITS/GM POWD TP SCH ×2 (08:37→16:21)
--- NOTE | 2016-09-28 10:36 | Diagnostic Imaging Report ---
History: Dyspnea Comparison:[09/26/2016] Findings:[Heart size enlarged. There is infiltrate and effusion left lung. Right lung is clear. Dextroscoliosis of the thoracic spine.] Impression:[Compared to previous exam minimal improvement in left-sided infiltrate and effusion.
--- NOTE | 2016-09-28 12:15 | Internal Medicine Prog Note ---
Internal Medicine Subjective - Subjective Service Date: 09/28/16 (awake, noninteractive, patient right arm noted with +2 edema afebrile. ) Patient seen and examined:: with staff Internal Medicine Objective - Results Result Diagrams: 09/28/16 04:40 09/28/16 04:40 Recent Labs: Laboratory Last Values WBC 6.1 Th/cmm (4.8-10.8) 09/28/16 04:40 RBC 3.63 Mil/cmm (3.80-5.10) L 09/28/16 04:40 Hgb 10.4 gm/dL (11.7-15.5) L 09/28/16 04:40 Hct 32.5 % (35.0-45.0) L D 09/28/16 04:40 MCV 89.6 fl (81-100) 09/28/16 04:40 MCH 28.7 pg (27.0-31.0) 09/28/16 04:40 MCHC Differential 32.1 pg (28.0-36.0) 09/28/16 04:40 RDW 17.1 % (11.5-20.0) 09/28/16 04:40 Plt Count 194 Th/cmm (150-400) 09/28/16 04:40 MPV 10.2 fl 09/28/16 04:40 Neutrophils % 68.2 % (40.0-80.0) 09/28/16 04:40 Band Neutrophils % 11 % (0-10) H 09/22/16 04:49 Lymphocytes % 22.9 % (20.0-50.0) 09/28/16 04:40 Monocytes % 6.4 % (2.0-10.0) 09/28/16 04:40 Eosinophils % 2.4 % (0.0-5.0) 09/28/16 04:40 Basophils % 0.1 % (0.0-2.0) 09/28/16 04:40 Neutrophils (Manual) 80 % (40-80) 09/22/16 04:49 Lymphocytes 3 % (20-50) L 09/22/16 04:49 Monocytes 4 % (2-10) 09/22/16 04:49 Eosinophils 2 % (0-5) 09/22/16 04:49 Platelet Estimate DECREASED PLATELETS (NORMAL) 09/22/16 04:49 Platelet Morphology GIANT PLATELETS SEEN (NORMAL) 09/22/16 04:49 Polychromasia 1+ 09/22/16 04:49 Anisocytosis 1+ 09/22/16 04:49 RBC Morph Micro Appear ABNORMAL (NORMAL) 09/22/16 04:49 PT 11.2 SECONDS (9.5-11.5) 09/21/16 09:13 INR 1.12 (0.5-1.4) 09/21/16 09:13 PTT (Actin FS) 23.6 SECONDS (26.0-38.0) L 09/21/16 09:13 Sodium 147 mEq/L (136-145) H 09/28/16 04:40 Potassium 4.3 mEq/L (3.5-5.1) 09/28/16 04:40 Chloride 121 mEq/L (98-107) H 09/28/16 04:40 Carbon Dioxide 22.2 mEq/L (21.0-31.0) 09/28/16 04:40 Anion Gap 8.1 (7.0-16.0) 09/28/16 04:40 BUN 25 mg/dL (7-25) 09/28/16 04:40 Creatinine 0.7 mg/dL (0.6-1.2) 09/28/16 04:40 Est GFR ( Amer) > 60.0 ml/min (>90) 09/28/16 04:40 Est GFR (Non-Af Amer) > 60.0 ml/min 09/28/16 04:40 BUN/Creatinine Ratio 35.7 09/28/16 04:40 Glucose 85 mg/dL (70-105) 09/28/16 04:40 POC Glucose 179 MG/DL (70 - 105) H 09/28/16 11:33 Hemoglobin A1c % 6.5 % (4.0-6.0) H 09/21/16 09:13 Whole Bld Lactic Acid 0.96 mmol/L (0.60-2.00) 09/21/16 22:05 Calcium 9.0 mg/dL (8.6-10.3) 09/28/16 04:40 Magnesium 2.9 mg/dL (1.9-2.7) H 09/23/16 04:37 Total Bilirubin 0.3 mg/dL (0.3-1.0) 09/27/16 04:56 Direct Bilirubin 0.07 mg/dL (0.0-0.2) 09/27/16 04:56 AST 36 U/L (13-39) 09/21/16 09:13 ALT 18 U/L (7-52) 09/21/16 09:13 Alkaline Phosphatase 98 U/L (34-104) 09/21/16 09:13 Ammonia 43 umol/L (16-53) 09/27/16 16:49 Troponin I 0.79 ng/mL (0.01-0.05) H* D 09/21/16 22:05 B-Natriuretic Peptide 170.0 pg/mL (5.0-100.0) H 09/27/16 04:56 Total Protein 7.4 gm/dL (6.0-8.3) 09/21/16 09:13 Albumin 3.5 gm/dL (3.7-5.3) L 09/21/16 09:13 Globulin 3.9 gm/dL 09/21/16 09:13 Albumin/Globulin Ratio 0.9 (1.0-1.8) L 09/21/16 09:13 Urine Source CATH 09/21/16 09:30 Urine Color RED 09/21/16 09:30 Urine Clarity CLOUDY (CLEAR) H 09/21/16 09:30 Urine pH 6.0 09/21/16 09:30 Ur Specific [place] 1.020 (1.005-1.030) 09/21/16 09:30 Urine Protein >300 mg/dL (NEGATIVE) H 09/21/16 09:30 Urine Glucose (UA) NEGATIVE mg/dL (NEGATIVE) 09/21/16 09:30 Urine Ketones TRACE mg/dL (NEGATIVE) 09/21/16 09:30 Urine Blood LARGE (NEGATIVE) H 09/21/16 09:30 Urine Nitrate NEGATIVE (NEGATIVE) 09/21/16 09:30 Urine Bilirubin NEGATIVE (NEGATIVE) 09/21/16 09:30 Urine Urobilinogen 0.2 E.U./dL (0.2 - 1.0) 09/21/16 09:30 Ur Leukocyte Esterase LARGE (NEGATIVE) H 09/21/16 09:30 Urine RBC >100 /hpf (0-5) H 09/21/16 09:30 Urine WBC 25-50 /hpf (0-5) H 09/21/16 09:30 Ur Epithelial Cells OCCASIONAL /lpf (FEW) 09/21/16 09:30 Urine Bacteria MANY /hpf (NONE SEEN) 09/21/16 09:30 Vancomycin Trough 20.4 ug/mL (10-20) H 09/23/16 16:20 Digoxin 2.7 ng/ml (0.8-2.0) H* 09/28/16 04:40 - Physical Exam Vitals and I&O: Vital Signs Temp 97.1 F 09/28/16 12:00 Pulse 107 09/28/16 12:00 Resp 21 09/28/16 12:00 BP 85/54 09/28/16 12:00 Pulse Ox 100 09/28/16 12:00 Intake & Output 09/27/16 09/28/16 09/28/16 18:59 06:59 18:59 Intake Total 200 2306 300 Output Total 1452 Balance 200 854 300 Intake: Intake, IV Amount 200 856 100 Meropenem 1 gm In Sodium 200 100 100 Chloride 0.9% 100 ml @ 100 mls/hr IV Q8HR@0000, 0800,1600 [facility] Rx#: [id number] Sodium Chloride 0.9% 1, 756 000 ml @ 40 mls/hr IV . Q24H [facility] Rx#:[id number] Oral 0 Tube Feeding 1300 50 Other 150 150 Output: Urine 1450 Urine/Stool Mix 2 Other: # Bowel Movements 1 Stool Characteristics Soft Soft Soft Brown Liquid Active Medications: Current Medications Acetaminophen (Tylenol 650mg/20.3ml Suspension) 650 mg GT Q4H PRN PRN Reason: MILD PAIN AND FEVER >101 Stop: 11/20/16 12:41 Last Admin: 09/27/16 13:29 Dose: 650 mg Acetaminophen/Hydrocodone Bitart ([place] 5mg/325mg) 1 tab GT Q4H PRN PRN Reason: Moderate-Severe Pain Stop: 11/20/16 12:41 Last Admin: 09/23/16 01:09 Dose: 1 tab Acetylcysteine (Mucomyst 20%) 3 ml HHN Q4HR [facility] Stop: 11/24/16 15:59 Last Admin: 09/28/16 11:52 Dose: 3 ml Albuterol Sulfate (Albuterol 2.5mg/3ml Neb Ud) 2.5 mg HHN Q4HRT [facility] Stop: 11/25/16 10:59 Last Admin: 09/28/16 11:52 Dose: 2.5 mg Ascorbic Acid (Vitamin C) 500 mg GT DAILY [facility] Stop: 11/21/16 08:59 Last Admin: 09/28/16 08:34 Dose: 500 mg Atorvastatin Calcium (Lipitor) 40 mg PO HS [facility] Stop: 11/20/16 20:59 Last Admin: 09/27/16 21:23 Dose: 40 mg Dextrose (D50w) 50 ml IVP PRN PRN PRN Reason: blood sugar < 60 Stop: 11/25/16 21:35 Last Admin: 09/27/16 21:49 Dose: 50 ml Digoxin (Lanoxin) 0.25 mg GT DAILY [facility] Stop: 11/23/16 08:59 Last Admin: 09/28/16 08:35 Dose: Not Given Diltiazem HCl (Cardizem) 20 mg IVP Q4H PRN PRN Reason: HR Greater than 130 per min Stop: 11/20/16 12:45 Last Admin: 09/28/16 08:05 Dose: 20 mg Folic Acid (Folate) 1 mg GT DAILY [facility] Stop: 11/21/16 08:59 Last Admin: 09/28/16 08:34 Dose: 1 mg Guaifenesin (Robitussin) 200 mg GT Q4HR PRN PRN Reason: Cough or Congestion Stop: 11/20/16 12:41 Hydromorphone HCl (Dilaudid) 0.5 mg IVP Q4HR PRN PRN Reason: pain Stop: 11/26/16 19:54 Last Admin: 09/28/16 04:26 Dose: 0.5 mg Norepinephrine Bitartrate 4 mg (/ Dextrose) 254 mls @ 38.1 mls/hr IV TITR PRN; Protocol; 10 MCG/MIN PRN Reason: BP MAINTENANCE (PER PROTOCOL) Stop: 11/20/16 23:39 Last Admin: 09/26/16 05:53 Dose: 4 mcg/min, 15.24 mls/hr Meropenem 1 gm/ Sodium (Chloride) 100 mls @ 100 mls/hr IV Q8HR@0000,0800,1600 [facility] Stop: 11/24/16 15:59 Last Infusion: 09/28/16 09:00 Dose: Infused Sodium Chloride (Nacl 0.9%) 1,000 mls @ 40 mls/hr IV .Q24H [facility] Stop: 11/24/16 16:04 Last Admin: 09/27/16 21:18 Dose: 40 mls/hr Insulin Aspart (Novolog) 0 units SUBQ ACHS [place] PRN Reason: Protocol Stop: 11/20/16 16:29 Last Admin: 09/28/16 11:34 Dose: Not Given Ipratropium [place] (Atrovent Neb 0.5mg/2.5ml) 0.5 mg HHN Q4HRT [facility] Stop: 11/25/16 10:59 Last Admin: 09/28/16 11:52 Dose: 0.5 mg Lactobacillus Rhamnosus (Culturelle) 1 each PO DAILY [facility] Stop: 11/24/16 08:59 Last Admin: 09/28/16 08:34 Dose: 1 each Lactulose (Cephulac) 20 gm GT DAILY [facility] Stop: 11/27/16 08:59 Last Admin: 09/28/16 08:36 Dose: Not Given Loperamide HCl (Imodium) 2 mg GT Q4H PRN PRN Reason: DIARRHEA Stop: 11/20/16 15:12 Magnesium Hydroxide (Milk Of Magnesia) 30 ml GT DAILY PRN PRN Reason: Constipation Stop: 11/20/16 12:41 Midodrine (Proamatine) 10 mg GT Q8H [facility] Stop: 11/26/16 22:08 Last Admin: 09/28/16 06:35 Dose: 10 mg Miscellaneous (Probiotic Screen) 1 ea MC PRN PRN PRN Reason: PROTOCOL Stop: 11/24/16 08:48 Nystatin (Nystop) 100,000 units TP BID [facility] Stop: 11/21/16 08:59 Last Admin: 09/28/16 08:37 Dose: 100,000 units Ondansetron HCl (Zofran) 4 mg IV Q8H PRN PRN Reason: Nausea / Vomiting Stop: 11/20/16 12:45 Rivaroxaban (Xarelto) 10 mg GT DAILY [facility] Stop: 11/21/16 10:59 Last Admin: 09/28/16 08:34 Dose: 10 mg Vitamin A (Vitamin A & D) 5 gm TP DAILY [facility] Stop: 11/21/16 14:59 Last Admin: 09/28/16 08:33 Dose: 5 gm Zinc Sulfate (Zinc Sulfate) 220 mg GT DAILY [facility] Stop: 11/21/16 08:59 Last Admin: 09/28/16 08:34 Dose: 220 mg General: weak HEENT: NC/AT, PERRLA Neck: Supple Lungs: ronchi Cardiovascular: RRR, Normal S1, Normal S2, without murmur Abdomen: soft non-tender, non-distended, +GT Neurological: no change, unable to follow command - Procedures Procedures: Procedures Procedure Code Date BLOOD TRANSFUSION SERVICE 67523 03/06/16 CHANGE GASTROSTOMY TUBE 65402 06/09/14 AGNIESZKA BONE 20 SQ CM/< 44665 01/28/15 DIAGNOSTIC COLONOSCOPY 20744 03/06/16 EGD BIOPSY SINGLE/MULTIPLE 25655 03/06/16 EXCISION OF DUODENUM, ENDO, DIAGN [id number] 03/06/16 EXCISION OF STOMACH, ENDO, DIAGN [id number] 03/06/16 IMMOBILIZ/WOUND ATTN NEC 93.59 01/28/15 INSERT INDWELLING CATH 57.94 10/18/05 INSERT TEMP BLADDER CATH 27377 10/18/05 INSPECTION OF LOWER INTESTINAL TRACT, ENDO [id number] 03/06/16 INSPECTION OF UPPER INTESTINAL TRACT, ENDO [id number] 10/27/15 LOC EXC BONE LESION NEC 77.69 01/28/15 PACKED CELL TRANSFUSION 99.04 10/20/14 REPLACE GASTROSTOMY TUBE 97.02 06/09/14 TRANSFUSE NONAUT RED BLOOD CELLS IN PERIPH VEIN, PERC [id number] 06/16/16 Internal Medicine Assmt/Plan - Assessment Assessment: sepsis shock pmn acute on crf anemia leukocytosis hypoglycemia mr cp elevated ammonia ESBL URINE MRSA NARES - Plan Plan: right arm venous doppler f/u labs in am ivabx bronchodilators wound care Nutritional Asmnt/Malnutr-PDOC - Dietary Evaluation Malnutrition Findings (Please click <Entered> for more info): Nutritional Asmnt/Malnutrition Start: 09/22/16 12: 31 Text: Status: Complete Freq: Document 09/22/16 12:32 GSUN (Rec: 09/22/16 13:00 GSUN [email or web address]) Nutritional Asmnt/Malnutrition Patient General Information Nutritional Screening High Risk Screening Diagnosis Per ER: sepsis, UTI, HTN, possible PNA, elevated troponin Pertinent Medical Hx/Surgical Hx Per ER: HTN, DM, dyslipidemia, anemia, 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 RD consult for decubitus ulcer and trigger for BG >180. Discussed with RN regarding tube feeding regimens when tube feeding resumed. Unable to obtain new weight due to bedscale not properly calibrated. Current Diet Order/ Nutrition Support NPO Pertinent Medications Vitamin C, lipitor, D5, folate , novolog, novolin, cephulac, MOM, zofran, vancomycin, vitamin A and D, zinc sulfate Pertinent Labs 09/21: BUN 112H, creatinine 1. 6H, glucose 263H, A1c 6.5H, troponin 1.96H 09/22: Potassium 2.8L, BUN 74H (improving), creatinine 1.1 ( improved), glucose 278H POC glucose 58-303H Nutritional Hx/Data Height 4 ft 9 in Height (Calculated Centimeters) 144.8 Current Weight (lbs) 97 lb Weight (Calculated Kilograms) 44.0 Weight (Calculated Grams) 45645.5 Weight Status Approriate GI Symptoms Food Allergies No Cultural/Ethnic/Hindu Belief Unknown. Usual diet at home [place]: glucerna 1.2 at 60ml/hr x 20hrs with 200ml flush Q4hrs Skin Integrity/Comment: primary substance abuse counselor: ulceration sacrum, right tow, right foot, left foot Estimated Nutritional Goals BEE in Kcals: Using Current wt Calories/Kcals/Kg 30-35kcal/kg Kcals Calculated 1320-1544kcal Protein: Using Current wt Protein g/k.5-1.7g/kg Protein Calculated 66-75g Fluid: ml 1320-1544ml (1ml/kcal) Nutritional Problem 2. Problem Problem Altered nutrition related laboratory values related to Etiology DM aeb Signs/Symptoms: episodes of hypoglycemia and hyperglycemia, 58L and 303H 1. Problem Problem Increased protein and kcal needs related to Etiology hypermetabolic state aeb Signs/Symptoms: sepsis, possible PNA, mulitple ulcerations Intervention/Recommendation Comments 1. Recommend Diabetisource 50ml/hr x 24hrs, providing 1440kcal and 72g protein, for glycemic control and to better meet nutritional needs. 2. Recommend 1 packet Arginaid BID via g-tube for multiple ulcerations wound healing. 3. If episodes of hypoglycemia persists, consider without carbohydrate restriction with Fibersource HN at 50ml/hrs x 24hrs. Expected Outcomes/Goals Expected Outcomes/Goals 1. Pt to meet 100% of estimated nutritional needs on tube feeding + Arginaid with tolerance. Physician Parameters for PEM Serum Albumin (g/dl) 3.5 - 5.0 (Normal)
[2016-09-28] MEDS: Hydrocodone/APAP 5mg/325mg Tab GT PRN ×2 (12:18→17:05)
[2016-09-28] MEDS: Dextrose 5% 1,000 ML IV SCH (12:45)
[2016-09-28] MEDS: Atorvastatin Calcium 10 MG TAB PO SCH (20:54)
[2016-09-29] MEDS: Ipratropium Neb 0.5 mg/2.5 mL UD HHN SCH ×6 (03:17→22:15)
[2016-09-29] MEDS: Albuterol Nebulizer 2.5mg/3mL HHN SCH ×6 (03:17→22:15)
[2016-09-29] MEDS: HYDROmorphone 1 mg/mL 1mL Syr IVP PRN (03:23)
[2016-09-29] MEDS: INSULIN ASPART, RECOMBINANT 100 UNITS/ML SUBQ SCH ×3 (06:57→16:59)
[2016-09-29] MEDS: Meropenem 1 gm in NS 0.9% 100 ML IV SCH ×2 (08:00→15:35)
[2016-09-29 08:26] LABS: % BASOPHILS 0.4 % (0.0-2.0); % EOSINOPHILS 2.6 % (0.0-5.0); % LYMPHOCYTES 19.3 % (20.0-50.0); % MONOCYTES 4.8 % (2.0-10.0); % NEUTROPHILS 72.9 % (40.0-80.0); MEAN CELL VOLUME 88.6 fl (81-100); MEAN CORPUSCULAR HEMOGLOBIN 28.7 pg (27.0-31.0); MEAN CORPUSCULAR HGB CONC 32.4 pg (28.0-36.0); NEUTROPHILE ABSOLUTE 3.7 Th/cmm (1.8-8.0); PLATELET COUNT 179 Th/cmm (150-400); RED BLOOD COUNT 3.15 Mil/cmm (3.80-5.10); RED CELL DISTRIBUTION WIDTH 16.8 % (11.5-20.0)
[2016-09-29 08:31] LABS: HEMATOCRIT 27.9 % (35.0-45.0)
[2016-09-29 08:48] LABS: ANION GAP 3.1 (7.0-16.0); BUN - UREA NITROGEN 29 mg/dL (7-25); BUN/CREATININE RATIO 48.3; CALCIUM SERUM 9.5 mg/dL (8.6-10.3); CARBON DIOXIDE 25.8 mEq/L (21.0-31.0); CHLORIDE 116 mEq/L (98-107); CREATININE - SERUM 0.6 mg/dL (0.6-1.2); GLUCOSE 297 mg/dL (70-105); POTASSIUM SERUM 3.9 mEq/L (3.5-5.1); SODIUM SERUM 141 mEq/L (136-145)
[2016-09-29] MEDS: Vitamin A/Vitamin D 5 gm Packet TP SCH (08:50)
[2016-09-29] MEDS: Lactobacillus Rhamnosus 10 Billion CFU Capsule PO SCH (08:51)
[2016-09-29] MEDS: Lactulose 10 Gm/15 mL 30mL UDC GT SCH (08:51)
[2016-09-29] MEDS: NYSTATIN 100000 UNITS/GM POWD TP SCH ×2 (08:51→16:59)
[2016-09-29] MEDS: Multivitamin w/ Minerals Tab GT SCH (08:51)
--- NOTE | 2016-09-29 12:29 | Internal Medicine Prog Note ---
Internal Medicine Subjective - Subjective Patient seen and examined:: with staff, chart reviewed Patient is:: awake, non-verbal, non-interactive Patient Complaints of:: congestion Per staff patient is:: no adverse event (off levo) Internal Medicine Objective - Results Result Diagrams: 09/29/16 07:55 09/29/16 07:55 Recent Labs: Laboratory Last Values WBC 5.0 Th/cmm (4.8-10.8) 09/29/16 07:55 RBC 3.15 Mil/cmm (3.80-5.10) L 09/29/16 07:55 Hgb 9.0 gm/dL (11.7-15.5) L 09/29/16 07:55 Hct 27.9 % (35.0-45.0) L D 09/29/16 07:55 MCV 88.6 fl (81-100) 09/29/16 07:55 MCH 28.7 pg (27.0-31.0) 09/29/16 07:55 MCHC Differential 32.4 pg (28.0-36.0) 09/29/16 07:55 RDW 16.8 % (11.5-20.0) 09/29/16 07:55 Plt Count 179 Th/cmm (150-400) 09/29/16 07:55 MPV 10.0 fl 09/29/16 07:55 Neutrophils % 72.9 % (40.0-80.0) 09/29/16 07:55 Band Neutrophils % 11 % (0-10) H 09/22/16 04:49 Lymphocytes % 19.3 % (20.0-50.0) L 09/29/16 07:55 Monocytes % 4.8 % (2.0-10.0) 09/29/16 07:55 Eosinophils % 2.6 % (0.0-5.0) 09/29/16 07:55 Basophils % 0.4 % (0.0-2.0) 09/29/16 07:55 Neutrophils (Manual) 80 % (40-80) 09/22/16 04:49 Lymphocytes 3 % (20-50) L 09/22/16 04:49 Monocytes 4 % (2-10) 09/22/16 04:49 Eosinophils 2 % (0-5) 09/22/16 04:49 Platelet Estimate DECREASED PLATELETS (NORMAL) 09/22/16 04:49 Platelet Morphology GIANT PLATELETS SEEN (NORMAL) 09/22/16 04:49 Polychromasia 1+ 09/22/16 04:49 Anisocytosis 1+ 09/22/16 04:49 RBC Morph Micro Appear ABNORMAL (NORMAL) 09/22/16 04:49 PT 11.2 SECONDS (9.5-11.5) 09/21/16 09:13 INR 1.12 (0.5-1.4) 09/21/16 09:13 PTT (Actin FS) 23.6 SECONDS (26.0-38.0) L 09/21/16 09:13 Sodium 141 mEq/L (136-145) 09/29/16 07:55 Potassium 3.9 mEq/L (3.5-5.1) 09/29/16 07:55 Chloride 116 mEq/L (98-107) H 09/29/16 07:55 Carbon Dioxide 25.8 mEq/L (21.0-31.0) 09/29/16 07:55 Anion Gap 3.1 (7.0-16.0) L 09/29/16 07:55 BUN 29 mg/dL (7-25) H 09/29/16 07:55 Creatinine 0.6 mg/dL (0.6-1.2) 09/29/16 07:55 Est GFR ( Amer) > 60.0 ml/min (>90) 09/29/16 07:55 Est GFR (Non-Af Amer) > 60.0 ml/min 09/29/16 07:55 BUN/Creatinine Ratio 48.3 09/29/16 07:55 Glucose 297 mg/dL (70-105) H 09/29/16 07:55 POC Glucose 355 MG/DL (70 - 105) H 09/29/16 11:35 Hemoglobin A1c % 6.5 % (4.0-6.0) H 09/21/16 09:13 Whole Bld Lactic Acid 0.96 mmol/L (0.60-2.00) 09/21/16 22:05 Calcium 9.5 mg/dL (8.6-10.3) 09/29/16 07:55 Magnesium 2.9 mg/dL (1.9-2.7) H 09/23/16 04:37 Total Bilirubin 0.3 mg/dL (0.3-1.0) 09/27/16 04:56 Direct Bilirubin 0.07 mg/dL (0.0-0.2) 09/27/16 04:56 AST 36 U/L (13-39) 09/21/16 09:13 ALT 18 U/L (7-52) 09/21/16 09:13 Alkaline Phosphatase 98 U/L (34-104) 09/21/16 09:13 Ammonia 43 umol/L (16-53) 09/27/16 16:49 Troponin I 0.79 ng/mL (0.01-0.05) H* D 09/21/16 22:05 B-Natriuretic Peptide 170.0 pg/mL (5.0-100.0) H 09/27/16 04:56 Total Protein 7.4 gm/dL (6.0-8.3) 09/21/16 09:13 Albumin 3.5 gm/dL (3.7-5.3) L 09/21/16 09:13 Globulin 3.9 gm/dL 09/21/16 09:13 Albumin/Globulin Ratio 0.9 (1.0-1.8) L 09/21/16 09:13 Urine Source CATH 09/21/16 09:30 Urine Color RED 09/21/16 09:30 Urine Clarity CLOUDY (CLEAR) H 09/21/16 09:30 Urine pH 6.0 09/21/16 09:30 Ur Specific [place] 1.020 (1.005-1.030) 09/21/16 09:30 Urine Protein >300 mg/dL (NEGATIVE) H 09/21/16 09:30 Urine Glucose (UA) NEGATIVE mg/dL (NEGATIVE) 09/21/16 09:30 Urine Ketones TRACE mg/dL (NEGATIVE) 09/21/16 09:30 Urine Blood LARGE (NEGATIVE) H 09/21/16 09:30 Urine Nitrate NEGATIVE (NEGATIVE) 09/21/16 09:30 Urine Bilirubin NEGATIVE (NEGATIVE) 09/21/16 09:30 Urine Urobilinogen 0.2 E.U./dL (0.2 - 1.0) 09/21/16 09:30 Ur Leukocyte Esterase LARGE (NEGATIVE) H 09/21/16 09:30 Urine RBC >100 /hpf (0-5) H 09/21/16 09:30 Urine WBC 25-50 /hpf (0-5) H 09/21/16 09:30 Ur Epithelial Cells OCCASIONAL /lpf (FEW) 09/21/16 09:30 Urine Bacteria MANY /hpf (NONE SEEN) 09/21/16 09:30 Vancomycin Trough 20.4 ug/mL (10-20) H 09/23/16 16:20 Digoxin 2.3 ng/ml (0.8-2.0) H 09/29/16 07:55 - Physical Exam Vitals and I&O: Vital Signs Temp 97.7 F 09/29/16 12:00 Pulse 108 09/29/16 12:00 Resp 16 09/29/16 12:00 BP 117/81 09/29/16 12:00 Pulse Ox 96 09/29/16 12:00 Intake & Output 09/28/16 09/29/16 09/29/16 18:59 06:59 18:59 Intake Total 1504 850 150 Output Total 780 1500 Balance 724 -650 150 Intake: Intake, IV Amount 454 100 Meropenem 1 gm In Sodium 200 100 Chloride 0.9% 100 ml @ 100 mls/hr IV Q8HR@0000, 0800,1600 [facility] Rx#: [id number] Norepinephrine 4 mg In 254 Dextrose 5% 250 ml @ 10 MCG/MIN 38.1 mls/hr IV TITR PRN Rx#:[id number] Oral 0 Tube Feeding 650 600 50 Other 400 150 100 Output: Urine 780 1500 Stool 0 Other: # Bowel Movements 1 0 Stool Characteristics Soft Liquid Active Medications: Current Medications Acetaminophen (Tylenol 650mg/20.3ml Suspension) 650 mg GT Q4H PRN PRN Reason: MILD PAIN AND FEVER >101 Stop: 11/20/16 12:41 Last Admin: 09/27/16 13:29 Dose: 650 mg Acetaminophen/Hydrocodone Bitart ([place] 5mg/325mg) 1 tab GT Q4H PRN PRN Reason: Moderate-Severe Pain Stop: 11/20/16 12:41 Last Admin: 09/28/16 17:05 Dose: 1 tab Acetylcysteine (Mucomyst 20%) 3 ml HHN Q4HR [facility] Stop: 11/24/16 15:59 Last Admin: 09/29/16 11:41 Dose: 3 ml Albuterol Sulfate (Albuterol 2.5mg/3ml Neb Ud) 2.5 mg HHN Q4HRT [facility] Stop: 11/25/16 10:59 Last Admin: 09/29/16 11:42 Dose: 2.5 mg Ascorbic Acid (Vitamin C) 500 mg GT DAILY [facility] Stop: 11/21/16 08:59 Last Admin: 09/29/16 08:51 Dose: 500 mg Atorvastatin Calcium (Lipitor) 40 mg PO HS [facility] Stop: 11/20/16 20:59 Last Admin: 09/28/16 20:54 Dose: 40 mg Dextrose (D50w) 50 ml IVP PRN PRN PRN Reason: blood sugar < 60 Stop: 11/25/16 21:35 Last Admin: 09/27/16 21:49 Dose: 50 ml Diltiazem HCl (Cardizem) 20 mg IVP Q4H PRN PRN Reason: HR Greater than 130 per min Stop: 11/20/16 12:45 Last Admin: 09/28/16 08:05 Dose: 20 mg Folic Acid (Folate) 1 mg GT DAILY [facility] Stop: 11/21/16 08:59 Last Admin: 09/29/16 08:51 Dose: 1 mg Guaifenesin (Robitussin) 200 mg GT Q4HR PRN PRN Reason: Cough or Congestion Stop: 11/20/16 12:41 Hydromorphone HCl (Dilaudid) 0.5 mg IVP Q4HR PRN PRN Reason: pain Stop: 11/26/16 19:54 Last Admin: 09/29/16 03:23 Dose: 0.5 mg Norepinephrine Bitartrate 4 mg (/ Dextrose) 254 mls @ 38.1 mls/hr IV TITR PRN; Protocol; 10 MCG/MIN PRN Reason: BP MAINTENANCE (PER PROTOCOL) Stop: 11/20/16 23:39 Last Admin: 09/28/16 12:18 Dose: 4 mcg/min, 15.24 mls/hr Meropenem 1 gm/ Sodium (Chloride) 100 mls @ 100 mls/hr IV Q8HR@0000,0800,1600 [facility] Stop: 11/24/16 15:59 Last Admin: 09/29/16 08:00 Dose: 100 mls/hr Dextrose (D5w) 1,000 mls @ 40 mls/hr IV .Q24H [facility] Stop: 11/27/16 12:44 Last Admin: 09/28/16 12:45 Dose: 40 mls/hr Insulin Aspart (Novolog) 0 units SUBQ ACHS [facility] PRN Reason: Protocol Stop: 11/20/16 16:29 Last Admin: 09/29/16 11:38 Dose: 8 units Ipratropium [place] (Atrovent Neb 0.5mg/2.5ml) 0.5 mg HHN Q4HRT [facility] Stop: 11/25/16 10:59 Last Admin: 09/29/16 11:42 Dose: 0.5 mg Lactobacillus Rhamnosus (Culturelle) 1 each PO DAILY [facility] Stop: 11/24/16 08:59 Last Admin: 09/29/16 08:51 Dose: 1 each Lactulose (Cephulac) 20 gm GT DAILY [facility] Stop: 11/27/16 08:59 Last Admin: 09/29/16 08:51 Dose: 20 gm Loperamide HCl (Imodium) 2 mg GT Q4H PRN PRN Reason: DIARRHEA Stop: 11/20/16 15:12 Magnesium Hydroxide (Milk Of Magnesia) 30 ml GT DAILY PRN PRN Reason: Constipation Stop: 11/20/16 12:41 Midodrine (Proamatine) 10 mg GT Q8H [facility] Stop: 11/26/16 22:08 Last Admin: 09/29/16 06:52 Dose: 10 mg Miscellaneous (Probiotic Screen) 1 ea PRN PRN PRN Reason: PROTOCOL Stop: 11/24/16 08:48 Miscellaneous (Clinical Monitoring) 1 [facility] PRN PRN PRN Reason: XARELTO Stop: 11/28/16 11:19 Nystatin (Nystop) 100,000 units TP BID [facility] Stop: 11/21/16 08:59 Last Admin: 09/29/16 08:51 Dose: 100,000 units Ondansetron HCl (Zofran) 4 mg IV Q8H PRN PRN Reason: Nausea / Vomiting Stop: 11/20/16 12:45 Rivaroxaban (Xarelto) 10 mg GT DAILY [facility] Stop: 11/21/16 10:59 Last Admin: 09/29/16 08:51 Dose: 10 mg Vitamin A (Vitamin A & D) 5 gm TP DAILY [facility] Stop: 11/21/16 14:59 Last Admin: 09/29/16 08:50 Dose: 5 gm Zinc Sulfate (Zinc Sulfate) 220 mg GT DAILY [facility] Stop: 11/21/16 08:59 Last Admin: 09/29/16 08:51 Dose: 220 mg General: lethargic, demented HEENT: NC/AT, PERRLA, other Neck: Supple, other (b temporal wasting) Cardiovascular: Normal S1, Normal S2, tachy Abdomen: soft non-tender, globular, +GT Extremities: excoriation, contracture, ulcers stage 3 Neurological: no change - Procedures Procedures: Procedures Procedure Code Date BLOOD TRANSFUSION SERVICE 50022 03/06/16 CHANGE GASTROSTOMY TUBE 57320 06/09/14 AGNIESZKA BONE 20 SQ CM/< 08218 01/28/15 DIAGNOSTIC COLONOSCOPY 46583 03/06/16 EGD BIOPSY SINGLE/MULTIPLE 14836 03/06/16 EXCISION OF DUODENUM, ENDO, DIAGN [id number] 03/06/16 EXCISION OF STOMACH, ENDO, DIAGN [id number] 03/06/16 IMMOBILIZ/WOUND ATTN NEC 93.59 01/28/15 INSERT INDWELLING CATH 57.94 10/18/05 INSERT TEMP BLADDER CATH 47344 10/18/05 INSPECTION OF LOWER INTESTINAL TRACT, ENDO [id number] 03/06/16 INSPECTION OF UPPER INTESTINAL TRACT, ENDO [id number] 10/27/15 LOC EXC BONE LESION NEC 77.69 01/28/15 PACKED CELL TRANSFUSION 99.04 10/20/14 REPLACE GASTROSTOMY TUBE 97.02 06/09/14 TRANSFUSE NONAUT RED BLOOD CELLS IN PERIPH VEIN, PERC 61219B4 06/16/16 Internal Medicine Assmt/Plan - Assessment Assessment: sepsis shock sp levophed pmn acute on crf anemia leukocytosis hypoglycemia mr cp elevated ammonia rue edema, ephysema - Plan Plan: cont on iv abx, on zosyn and vanco will hold all routine insulin cont on levophed prn critical poor access, will order midline ddw rn see order seen by dr martínez will check us, ct noted Nutritional Asmnt/Malnutr-PDOC - Dietary Evaluation Malnutrition Findings (Please click <Entered> for more info): Nutritional Asmnt/Malnutrition Start: 09/22/16 12: 31 Text: Status: Complete Freq: Document 09/22/16 12:32 GSUN (Rec: 02/20/17 13:00 [email or web address]) Nutritional Asmnt/Malnutrition Patient General Information Nutritional Screening High Risk Screening Diagnosis Per ER: sepsis, UTI, HTN, possible PNA, elevated troponin Pertinent Medical Hx/Surgical Hx Per ER: HTN, DM, dyslipidemia, anemia, 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 RD consult for decubitus ulcer and trigger for BG >180. Discussed with RN regarding tube feeding regimens when tube feeding resumed. Unable to obtain new weight due to bedscale not properly calibrated. Current Diet Order/ Nutrition Support NPO Pertinent Medications Vitamin C, lipitor, D5, folate , novolog, novolin, cephulac, MOM, zofran, vancomycin, vitamin A and D, zinc sulfate Pertinent Labs 09/21: BUN 112H, creatinine 1. 6H, glucose 263H, A1c 6.5H, troponin 1.96H 09/22: Potassium 2.8L, BUN 74H (improving), creatinine 1.1 ( improved), glucose 278H POC glucose 58-303H Nutritional Hx/Data Height 1.45 m Height (Calculated Centimeters) 144.8 Current Weight (lbs) 43.998 kg Weight (Calculated Kilograms) 44.0 Weight (Calculated Grams) 44232.5 Weight Status Approriate GI Symptoms Food Allergies No Cultural/Ethnic/[employer] Belief Unknown. 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 Problem Problem Altered nutrition related laboratory values related to Etiology DM aeb Signs/Symptoms: episodes of hypoglycemia and hyperglycemia, 58L and 303H 1. Problem Problem Increased protein and kcal needs related to Etiology hypermetabolic state aeb Signs/Symptoms: sepsis, possible PNA, mulitple ulcerations Intervention/Recommendation Comments 1. Recommend Diabetisource 50ml/hr x 24hrs, providing 1440kcal and 72g protein, for glycemic control and to better meet nutritional needs. 2. Recommend 1 packet Arginaid BID via g-tube for multiple ulcerations wound healing. 3. If episodes of hypoglycemia persists, consider without carbohydrate restriction with Fibersource HN at 50ml/hrs x 24hrs. Expected Outcomes/Goals Expected Outcomes/Goals 1. Pt to meet 100% of estimated nutritional needs on tube feeding + Arginaid with tolerance. Physician Parameters for PEM Serum Albumin (g/dl) 3.5 - 5.0 (Normal)
--- NOTE | 2016-09-29 12:57 | Diagnostic Imaging Report ---
Right upper extremity Doppler venous ultrasound exam HISTORY: Swelling Sonographic sector images were obtained through the venous systems the right arm. Associated Doppler data was obtained. The exam is limited as the right cephalic, basilic, brachial veins could not be clearly visualized due to overlying dressings. There is patency of the right internal jugular, subclavian, and axillary veins. Normal compressibility. IMPRESSION: 1. Limited exam as the brachial, basilic, cephalic veins could not be visualized due to overlying dressings. No obvious evidence of deep vein thrombophlebitis within the visualized venous structures.
[2016-09-29] MEDS: Dextrose 5% 1,000 ML IV SCH (13:45)
[2016-09-29] MEDS: Atorvastatin Calcium 10 MG TAB PO SCH (21:38)
[2016-09-30] MEDS: Meropenem 1 gm in NS 0.9% 100 ML IV SCH ×3 (01:50→16:14)
[2016-09-30] MEDS: Albuterol Nebulizer 2.5mg/3mL HHN SCH ×6 (02:26→22:31)
[2016-09-30] MEDS: Ipratropium Neb 0.5 mg/2.5 mL UD HHN SCH ×6 (02:26→22:31)
[2016-09-30 05:03] LABS: % BASOPHILS 0.2 % (0.0-2.0); % EOSINOPHILS 2.7 % (0.0-5.0); % LYMPHOCYTES 22.9 % (20.0-50.0); % MONOCYTES 5.7 % (2.0-10.0); % NEUTROPHILS 68.5 % (40.0-80.0); HEMATOCRIT 25.5 % (35.0-45.0); HEMOGLOBIN 8.3 gm/dL (11.7-15.5); MEAN CELL VOLUME 88.9 fl (81-100); MEAN CORPUSCULAR HEMOGLOBIN 28.8 pg (27.0-31.0); MEAN CORPUSCULAR HGB CONC 32.4 pg (28.0-36.0); MEAN PLATELET VOLUME 9.7 fl; NEUTROPHILE ABSOLUTE 4.4 Th/cmm (1.8-8.0); PLATELET COUNT 225 Th/cmm (150-400); RED BLOOD COUNT 2.87 Mil/cmm (3.80-5.10); WHITE BLOOD COUNT 6.5 Th/cmm (4.8-10.8)
[2016-09-30 05:14] LABS: ANION GAP 8.6 (7.0-16.0); BUN - UREA NITROGEN 35 mg/dL (7-25); BUN/CREATININE RATIO 58.3; CALCIUM SERUM 9.4 mg/dL (8.6-10.3); CARBON DIOXIDE 28.3 mEq/L (21.0-31.0); CHLORIDE 108 mEq/L (98-107); CREATININE - SERUM 0.6 mg/dL (0.6-1.2); GLUCOSE 228 mg/dL (70-105); MAGNESIUM 2.3 mg/dL (1.9-2.7); POTASSIUM SERUM 3.9 mEq/L (3.5-5.1); SODIUM SERUM 141 mEq/L (136-145)
[2016-09-30] MEDS: Multivitamin w/ Minerals Tab GT SCH (08:21)
[2016-09-30] MEDS: Lactobacillus Rhamnosus 10 Billion CFU Capsule PO SCH (08:26)
[2016-09-30] MEDS: NYSTATIN 100000 UNITS/GM POWD TP SCH ×2 (08:27→17:00)
[2016-09-30] MEDS: Vitamin A/Vitamin D 5 gm Packet TP SCH (09:00)
--- NOTE | 2016-09-30 10:28 | Diagnostic Imaging Report ---
CHEST X-RAY: AP view INDICATION: Shortness of breath COMPARISON: Chest x-ray 09/28/2016 FINDINGS: There is interval complete opacification of the left hemithorax. Severe scoliosis is noted. Right vascular catheter is stable. IMPRESSION: Interval complete opacification of the left hemithorax most likely due to lung collapse. There is probable superimposed pleural fluid with pneumonia. Clinical correlation and follow-up is recommended. Results were administered to the referring team on 09/30/2016 at 10:25 AM.
[2016-09-30] MEDS: INSULIN ASPART, RECOMBINANT 100 UNITS/ML SUBQ SCH ×4 (11:46→21:28)
[2016-09-30] MEDS: Lactulose 10 Gm/15 mL 30mL UDC GT SCH (11:48)
--- NOTE | 2016-09-30 13:31 | Internal Medicine Prog Note ---
Internal Medicine Subjective - Subjective Service Date: 09/30/16 Patient seen and examined:: with staff Patient is:: awake Patient Complaints of:: congestion Internal Medicine Objective - Results Result Diagrams: 09/30/16 04:35 09/30/16 04:35 Recent Labs: Laboratory Last Values WBC 6.5 Th/cmm (4.8-10.8) D 09/30/16 04:35 RBC 2.87 Mil/cmm (3.80-5.10) L 09/30/16 04:35 Hgb 8.3 gm/dL (11.7-15.5) L 09/30/16 04:35 Hct 25.5 % (35.0-45.0) L 09/30/16 04:35 MCV 88.9 fl (81-100) 09/30/16 04:35 MCH 28.8 pg (27.0-31.0) 09/30/16 04:35 MCHC Differential 32.4 pg (28.0-36.0) 09/30/16 04:35 RDW 17.0 % (11.5-20.0) 09/30/16 04:35 Plt Count 225 Th/cmm (150-400) D 09/30/16 04:35 MPV 9.7 fl 09/30/16 04:35 Neutrophils % 68.5 % (40.0-80.0) 09/30/16 04:35 Band Neutrophils % 11 % (0-10) H 09/22/16 04:49 Lymphocytes % 22.9 % (20.0-50.0) 09/30/16 04:35 Monocytes % 5.7 % (2.0-10.0) 09/30/16 04:35 Eosinophils % 2.7 % (0.0-5.0) 09/30/16 04:35 Basophils % 0.2 % (0.0-2.0) 09/30/16 04:35 Neutrophils (Manual) 80 % (40-80) 09/22/16 04:49 Lymphocytes 3 % (20-50) L 09/22/16 04:49 Monocytes 4 % (2-10) 09/22/16 04:49 Eosinophils 2 % (0-5) 09/22/16 04:49 Platelet Estimate DECREASED PLATELETS (NORMAL) 09/22/16 04:49 Platelet Morphology GIANT PLATELETS SEEN (NORMAL) 09/22/16 04:49 Polychromasia 1+ 09/22/16 04:49 Anisocytosis 1+ 09/22/16 04:49 RBC Morph Micro Appear ABNORMAL (NORMAL) 09/22/16 04:49 PT 11.2 SECONDS (9.5-11.5) 09/21/16 09:13 INR 1.12 (0.5-1.4) 09/21/16 09:13 PTT (Actin FS) 23.6 SECONDS (26.0-38.0) L 09/21/16 09:13 Sodium 141 mEq/L (136-145) 09/30/16 04:35 Potassium 3.9 mEq/L (3.5-5.1) 09/30/16 04:35 Chloride 108 mEq/L (98-107) H 09/30/16 04:35 Carbon Dioxide 28.3 mEq/L (21.0-31.0) 09/30/16 04:35 Anion Gap 8.6 (7.0-16.0) 09/30/16 04:35 BUN 35 mg/dL (7-25) H 09/30/16 04:35 Creatinine 0.6 mg/dL (0.6-1.2) 09/30/16 04:35 Est GFR ( Amer) > 60.0 ml/min (>90) 09/30/16 04:35 Est GFR (Non-Af Amer) > 60.0 ml/min 09/30/16 04:35 BUN/Creatinine Ratio 58.3 09/30/16 04:35 Glucose 228 mg/dL (70-105) H 09/30/16 04:35 POC Glucose 198 MG/DL (70 - 105) H 09/30/16 11:43 Hemoglobin A1c % 6.5 % (4.0-6.0) H 09/21/16 09:13 Whole Bld Lactic Acid 0.96 mmol/L (0.60-2.00) 09/21/16 22:05 Calcium 9.4 mg/dL (8.6-10.3) 09/30/16 04:35 Magnesium 2.3 mg/dL (1.9-2.7) 09/30/16 04:35 Total Bilirubin 0.3 mg/dL (0.3-1.0) 09/27/16 04:56 Direct Bilirubin 0.07 mg/dL (0.0-0.2) 09/27/16 04:56 AST 36 U/L (13-39) 09/21/16 09:13 ALT 18 U/L (7-52) 09/21/16 09:13 Alkaline Phosphatase 98 U/L (34-104) 09/21/16 09:13 Ammonia 43 umol/L (16-53) 09/27/16 16:49 Troponin I 0.79 ng/mL (0.01-0.05) H* D 09/21/16 22:05 B-Natriuretic Peptide 210.0 pg/mL (5.0-100.0) H 09/30/16 04:35 Total Protein 7.4 gm/dL (6.0-8.3) 09/21/16 09:13 Albumin 3.5 gm/dL (3.7-5.3) L 09/21/16 09:13 Globulin 3.9 gm/dL 09/21/16 09:13 Albumin/Globulin Ratio 0.9 (1.0-1.8) L 09/21/16 09:13 Urine Source CATH 09/21/16 09:30 Urine Color RED 09/21/16 09:30 Urine Clarity CLOUDY (CLEAR) H 09/21/16 09:30 Urine pH 6.0 09/21/16 09:30 Ur Specific [place] 1.020 (1.005-1.030) 09/21/16 09:30 Urine Protein >300 mg/dL (NEGATIVE) H 09/21/16 09:30 Urine Glucose (UA) NEGATIVE mg/dL (NEGATIVE) 09/21/16 09:30 Urine Ketones TRACE mg/dL (NEGATIVE) 09/21/16 09:30 Urine Blood LARGE (NEGATIVE) H 09/21/16 09:30 Urine Nitrate NEGATIVE (NEGATIVE) 09/21/16 09:30 Urine Bilirubin NEGATIVE (NEGATIVE) 09/21/16 09:30 Urine Urobilinogen 0.2 E.U./dL (0.2 - 1.0) 09/21/16 09:30 Ur Leukocyte Esterase LARGE (NEGATIVE) H 09/21/16 09:30 Urine RBC >100 /hpf (0-5) H 09/21/16 09:30 Urine WBC 25-50 /hpf (0-5) H 09/21/16 09:30 Ur Epithelial Cells OCCASIONAL /lpf (FEW) 09/21/16 09:30 Urine Bacteria MANY /hpf (NONE SEEN) 09/21/16 09:30 Vancomycin Trough 20.4 ug/mL (10-20) H 09/23/16 16:20 Digoxin 2.3 ng/ml (0.8-2.0) H 09/29/16 07:55 - Physical Exam Vitals and I&O: Vital Signs Temp 97.8 F 09/30/16 12:00 Pulse 91 09/30/16 12:00 Resp 23 09/30/16 12:00 BP 119/61 09/30/16 12:00 Pulse Ox 99 09/30/16 12:00 Intake & Output 09/29/16 09/30/16 09/30/16 18:59 06:59 18:59 Intake Total 2250 100 600 Output Total 760 1600 Balance 1490 100 -1000 Weight (lbs) 133 lb 12.8 oz Intake: Intake, IV Amount 1200 100 Dextrose 5% 1,000 ml @ 40 1000 mls/hr IV .Q24H [facility] Rx#: [id number] Meropenem 1 gm In Sodium 200 100 Chloride 0.9% 100 ml @ 100 mls/hr IV Q8HR@0000, 0800,1600 [facility] Rx#: [id number] Tube Feeding 650 600 Other 400 Output: Urine 760 1600 Other: # Bowel Movements 1 1 Stool Characteristics Liquid Soft Soft Brown Brown Active Medications: Current Medications Acetaminophen (Tylenol 650mg/20.3ml Suspension) 650 mg GT Q4H PRN PRN Reason: MILD PAIN AND FEVER >101 Stop: 11/20/16 12:41 Last Admin: 09/27/16 13:29 Dose: 650 mg Acetaminophen/Hydrocodone Bitart ([place] 5mg/325mg) 1 tab GT Q4H PRN PRN Reason: Moderate-Severe Pain Stop: 11/20/16 12:41 Last Admin: 09/28/16 17:05 Dose: 1 tab Acetylcysteine (Mucomyst 20%) 3 ml HHN Q4HR [facility] Stop: 11/24/16 15:59 Last Admin: 09/30/16 11:12 Dose: 3 ml Albuterol Sulfate (Albuterol 2.5mg/3ml Neb Ud) 2.5 mg HHN Q4HRT [facility] Stop: 11/25/16 10:59 Last Admin: 09/30/16 11:12 Dose: 2.5 mg Ascorbic Acid (Vitamin C) 500 mg GT DAILY [facility] Stop: 11/21/16 08:59 Last Admin: 09/30/16 08:26 Dose: 500 mg Atorvastatin Calcium (Lipitor) 40 mg PO HS [facility] Stop: 11/20/16 20:59 Last Admin: 09/29/16 21:38 Dose: 40 mg Dextrose (D50w) 50 ml IVP PRN PRN PRN Reason: blood sugar < 60 Stop: 11/25/16 21:35 Last Admin: 09/27/16 21:49 Dose: 50 ml Diltiazem HCl (Cardizem) 20 mg IVP Q4H PRN PRN Reason: HR Greater than 130 per min Stop: 11/20/16 12:45 Last Admin: 09/28/16 08:05 Dose: 20 mg Folic Acid (Folate) 1 mg GT DAILY [facility] Stop: 11/21/16 08:59 Last Admin: 09/30/16 08:17 Dose: 1 mg Guaifenesin (Robitussin) 200 mg GT Q4HR PRN PRN Reason: Cough or Congestion Stop: 11/20/16 12:41 Hydromorphone HCl (Dilaudid) 0.5 mg IVP Q4HR PRN PRN Reason: pain Stop: 11/26/16 19:54 Last Admin: 09/29/16 03:23 Dose: 0.5 mg Norepinephrine Bitartrate 4 mg (/ Dextrose) 254 mls @ 38.1 mls/hr IV TITR PRN; Protocol; 10 MCG/MIN PRN Reason: BP MAINTENANCE (PER PROTOCOL) Stop: 11/20/16 23:39 Last Admin: 09/28/16 12:18 Dose: 4 mcg/min, 15.24 mls/hr Meropenem 1 gm/ Sodium (Chloride) 100 mls @ 100 mls/hr IV Q8HR@0000,0800,1600 [facility] Stop: 11/24/16 15:59 Last Admin: 09/30/16 08:12 Dose: 100 mls/hr Dextrose (D5w) 1,000 mls @ 40 mls/hr IV .Q24H [facility] Stop: 11/27/16 12:44 Last Admin: 09/29/16 13:45 Dose: 40 mls/hr Insulin Aspart (Novolog) 0 units SUBQ ACHS [place] PRN Reason: Protocol Stop: 11/20/16 16:29 Last Admin: 09/30/16 11:46 Dose: Not Given Ipratropium [place] (Atrovent Neb 0.5mg/2.5ml) 0.5 mg HHN Q4HRT [facility] Stop: 11/25/16 10:59 Last Admin: 09/30/16 11:12 Dose: 0.5 mg Lactobacillus Rhamnosus (Culturelle) 1 each PO DAILY [facility] Stop: 11/24/16 08:59 Last Admin: 09/30/16 08:26 Dose: 1 each Lactulose (Cephulac) 20 gm GT DAILY [facility] Stop: 11/27/16 08:59 Last Admin: 09/30/16 11:48 Dose: 20 gm Loperamide HCl (Imodium) 2 mg GT Q4H PRN PRN Reason: DIARRHEA Stop: 11/20/16 15:12 Magnesium Hydroxide (Milk Of Magnesia) 30 ml GT DAILY PRN PRN Reason: Constipation Stop: 11/20/16 12:41 Last Admin: 09/30/16 08:21 Dose: 30 ml Metoclopramide HCl (Reglan) 5 mg IVP TID [facility] Stop: 11/29/16 13:59 Midodrine (Proamatine) 10 mg GT Q8H [facility] Stop: 11/26/16 22:08 Last Admin: 09/29/16 22:00 Dose: 10 mg Miscellaneous (Probiotic Screen) 1 ea MC PRN PRN PRN Reason: PROTOCOL Stop: 11/24/16 08:48 Miscellaneous (Clinical Monitoring) 1 ea MC PRN PRN PRN Reason: XARELTO Stop: 11/28/16 11:19 Nystatin (Nystop) 100,000 units TP BID [facility] Stop: 11/21/16 08:59 Last Admin: 09/30/16 08:27 Dose: 100,000 units Ondansetron HCl (Zofran) 4 mg IV Q8H PRN PRN Reason: Nausea / Vomiting Stop: 11/20/16 12:45 Rivaroxaban (Xarelto) 10 mg GT DAILY [facility] Stop: 11/21/16 10:59 Last Admin: 09/30/16 08:20 Dose: 10 mg Vitamin A (Vitamin A & D) 5 gm TP DAILY [facility] Stop: 11/21/16 14:59 Last Admin: 09/29/16 08:50 Dose: 5 gm Zinc Sulfate (Zinc Sulfate) 220 mg GT DAILY [facility] Stop: 11/21/16 08:59 Last Admin: 09/30/16 08:26 Dose: 220 mg General: weak HEENT: NC/AT, PERRLA Neck: Supple Lungs: CTAB, ronchi Cardiovascular: RRR, Normal S1, Normal S2, without murmur Abdomen: soft non-tender, non-distended, +GT - Procedures Procedures: Procedures Procedure Code Date BLOOD TRANSFUSION SERVICE 93447 03/06/16 CHANGE GASTROSTOMY TUBE 89306 06/09/14 AGNIESZKA BONE 20 SQ CM/< 48388 01/28/15 DIAGNOSTIC COLONOSCOPY 96248 03/06/16 EGD BIOPSY SINGLE/MULTIPLE 44094 03/06/16 EXCISION OF DUODENUM, ENDO, DIAGN [id number] 03/06/16 EXCISION OF STOMACH, ENDO, DIAGN [id number] 03/06/16 IMMOBILIZ/WOUND ATTN NEC 93.59 01/28/15 INSERT INDWELLING CATH 57.94 10/18/05 INSERT TEMP BLADDER CATH 98221 10/18/05 INSPECTION OF LOWER INTESTINAL TRACT, ENDO [id number] 03/06/16 INSPECTION OF UPPER INTESTINAL TRACT, ENDO [id number] 10/27/15 LOC EXC BONE LESION NEC 77.69 01/28/15 PACKED CELL TRANSFUSION 99.04 10/20/14 REPLACE GASTROSTOMY TUBE 97.02 06/09/14 TRANSFUSE NONAUT RED BLOOD CELLS IN PERIPH VEIN, PERC 59986X0 06/16/16 Internal Medicine Assmt/Plan - Assessment Assessment: sepsis shock pmn acute on crf anemia leukocytosis hypoglycemia mr cp elevated ammonia ESBL URINE MRSA NARES - Plan Plan: right arm venous doppler f/u labs in am ivabx bronchodilators wound care Nutritional Asmnt/Malnutr-PDOC - Dietary Evaluation Malnutrition Findings (Please click <Entered> for more info): Nutritional Asmnt/Malnutrition Start: 09/22/16 12: 31 Text: Status: Complete Freq: Document 09/22/16 12:32 GSUN (Rec: 09/22/16 13:00 GSUN [email or web address]) Nutritional Asmnt/Malnutrition Patient General Information Nutritional Screening High Risk Screening Diagnosis Per ER: sepsis, UTI, HTN, possible PNA, elevated troponin Pertinent Medical Hx/Surgical Hx Per ER: HTN, DM, dyslipidemia, anemia, 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 RD consult for decubitus ulcer and trigger for BG >180. Discussed with RN regarding tube feeding regimens when tube feeding resumed. Unable to obtain new weight due to bedscale not properly calibrated. Current Diet Order/ Nutrition Support NPO Pertinent Medications Vitamin C, lipitor, D5, folate , novolog, novolin, cephulac, MOM, zofran, vancomycin, vitamin A and D, zinc sulfate Pertinent Labs 09/21: BUN 112H, creatinine 1. 6H, glucose 263H, A1c 6.5H, troponin 1.96H 09/22: Potassium 2.8L, BUN 74H (improving), creatinine 1.1 ( improved), glucose 278H POC glucose 58-303H Nutritional Hx/Data Height 4 ft 9 in Height (Calculated Centimeters) 144.8 Current Weight (lbs) 97 lb Weight (Calculated Kilograms) 44.0 Weight (Calculated Grams) 68376.5 Weight Status Approriate GI Symptoms Food Allergies No Cultural/Ethnic/Anabaptism Belief Unknown. Usual diet at home [place]: glucerna 1.2 at 60ml/hr x 20hrs with 200ml flush Q4hrs Skin Integrity/Comment: disbursing agent: ulceration sacrum, right tow, right foot, left foot Estimated Nutritional Goals BEE in Kcals: Using Current wt Calories/Kcals/Kg 30-35kcal/kg Kcals Calculated 1320-1544kcal Protein: Using Current wt Protein g/k.5-1.7g/kg Protein Calculated 66-75g Fluid: ml 1320-1544ml (1ml/kcal) Nutritional Problem 2. Problem Problem Altered nutrition related laboratory values related to Etiology DM aeb Signs/Symptoms: episodes of hypoglycemia and hyperglycemia, 58L and 303H 1. Problem Problem Increased protein and kcal needs related to Etiology hypermetabolic state aeb Signs/Symptoms: sepsis, possible PNA, mulitple ulcerations Intervention/Recommendation Comments 1. Recommend Diabetisource 50ml/hr x 24hrs, providing 1440kcal and 72g protein, for glycemic control and to better meet nutritional needs. 2. Recommend 1 packet Arginaid BID via g-tube for multiple ulcerations wound healing. 3. If episodes of hypoglycemia persists, consider without carbohydrate restriction with Fibersource HN at 50ml/hrs x 24hrs. Expected Outcomes/Goals Expected Outcomes/Goals 1. Pt to meet 100% of estimated nutritional needs on tube feeding + Arginaid with tolerance. Physician Parameters for PEM Serum Albumin (g/dl) 3.5 - 5.0 (Normal)
[2016-09-30] MEDS: Metoclopramide 5 mg/mL 2mL Vial IVP SCH ×2 (14:43→21:20)
[2016-09-30] MEDS: Dextrose 5% 1,000 ML IV SCH (17:00)
[2016-09-30] MEDS: HYDROmorphone 1 mg/mL 1mL Syr IVP PRN (20:10)
[2016-09-30] MEDS: Atorvastatin Calcium 10 MG TAB PO SCH (21:19)
[2016-10-01] MEDS: Albuterol Nebulizer 2.5mg/3mL HHN SCH ×6 (03:09→23:18)
[2016-10-01] MEDS: Ipratropium Neb 0.5 mg/2.5 mL UD HHN SCH ×6 (03:09→23:18)
[2016-10-01 05:33] LABS: ANION GAP 10.6 (7.0-16.0); BUN - UREA NITROGEN 32 mg/dL (7-25); BUN/CREATININE RATIO 53.3; CALCIUM SERUM 9.2 mg/dL (8.6-10.3); CARBON DIOXIDE 28.4 mEq/L (21.0-31.0); CHLORIDE 105 mEq/L (98-107); CREATININE - SERUM 0.6 mg/dL (0.6-1.2); GLUCOSE 238 mg/dL (70-105); SODIUM SERUM 140 mEq/L (136-145)
[2016-10-01] MEDS: HYDROmorphone 1 mg/mL 1mL Syr IVP PRN ×4 (06:41→19:36)
[2016-10-01] MEDS: INSULIN ASPART, RECOMBINANT 100 UNITS/ML SUBQ SCH ×4 (06:52→21:04)
[2016-10-01] MEDS: Meropenem 1 gm in NS 0.9% 100 ML IV SCH ×2 (08:00)
[2016-10-01 08:31] LABS: % BASOPHILS 0.5 % (0.0-2.0); % EOSINOPHILS 3.7 % (0.0-5.0); % LYMPHOCYTES 13.6 % (20.0-50.0); % MONOCYTES 6.4 % (2.0-10.0); % NEUTROPHILS 75.8 % (40.0-80.0); HEMATOCRIT 25.7 % (35.0-45.0); HEMOGLOBIN 8.5 gm/dL (11.7-15.5); MEAN CELL VOLUME 88.7 fl (81-100); MEAN CORPUSCULAR HEMOGLOBIN 29.5 pg (27.0-31.0); MEAN CORPUSCULAR HGB CONC 33.3 pg (28.0-36.0); MEAN PLATELET VOLUME 9.1 fl; NEUTROPHILE ABSOLUTE 4.4 Th/cmm (1.8-8.0); PLATELET COUNT 204 Th/cmm (150-400); RED BLOOD COUNT 2.89 Mil/cmm (3.80-5.10); RED CELL DISTRIBUTION WIDTH 17.5 % (11.5-20.0); WHITE BLOOD COUNT 5.8 Th/cmm (4.8-10.8)
[2016-10-01] MEDS: Hydrocodone/APAP 5mg/325mg Tab GT PRN ×2 (08:33→12:28)
[2016-10-01] MEDS: Dextrose 5% 1,000 ML IV SCH (09:15)
[2016-10-01] MEDS: Lactobacillus Rhamnosus 10 Billion CFU Capsule PO SCH (09:15)
[2016-10-01] MEDS: Vitamin A/Vitamin D 5 gm Packet TP SCH (09:16)
[2016-10-01] MEDS: Multivitamin w/ Minerals Tab GT SCH (09:16)
[2016-10-01] MEDS: Lactulose 10 Gm/15 mL 30mL UDC GT SCH (09:16)
[2016-10-01] MEDS: NYSTATIN 100000 UNITS/GM POWD TP SCH ×2 (09:17→17:09)
[2016-10-01] MEDS: Metoclopramide 5 mg/mL 2mL Vial IVP SCH ×4 (09:17→21:11)
--- NOTE | 2016-10-01 09:44 | Diagnostic Imaging Report ---
CHEST X-RAY: AP view INDICATION: Shortness of breath COMPARISON: Chest x-ray 09/30/2016 FINDINGS: There is interval reexpansion of the left lung. Left basal density is noted. Mild cardiomegaly is noted. Right upper extremity vascular catheter is stable. IMPRESSION: Interval reexpansion of the left lung. There may be a small residual left effusion with left basal atelectasis versus infiltrate.
[2016-10-01 11:18] LABS: URINE BILIRUBIN NEGATIVE (NEGATIVE); URINE COLOR YELLOW; URINE GLUCOSE (UA) NEGATIVE (NEGATIVE); URINE KETONE NEGATIVE (NEGATIVE)
[2016-10-01 11:19] LABS: URINE BLOOD SMALL (NEGATIVE); URINE PH 7.5; URINE PROTEIN 100 mg/dL (NEGATIVE); URINE UROBILINOGEN 0.2 E.U./dL (0.2 - 1.0); URINE WBC 25-50 /hpf (0-5)
[2016-10-01 11:20] LABS: URINE BACTERIA FEW /hpf (NONE SEEN); URINE EPITHELIAL CELLS OCCASIONAL /lpf (FEW)
--- NOTE | 2016-10-01 12:19 | Internal Medicine Prog Note ---
Internal Medicine Subjective - Subjective Service Date: 10/01/16 (patient had an episode systolic bp 200's, bP is slightly improving ) Patient seen and examined:: with staff Patient is:: awake Patient Complaints of:: congestion Internal Medicine Objective - Results Result Diagrams: 10/01/16 07:40 10/01/16 04:53 Recent Labs: Laboratory Last Values WBC 5.8 Th/cmm (4.8-10.8) 10/01/16 07:40 RBC 2.89 Mil/cmm (3.80-5.10) L 10/01/16 07:40 Hgb 8.5 gm/dL (11.7-15.5) L 10/01/16 07:40 Hct 25.7 % (35.0-45.0) L 10/01/16 07:40 MCV 88.7 fl (81-100) 10/01/16 07:40 MCH 29.5 pg (27.0-31.0) 10/01/16 07:40 MCHC Differential 33.3 pg (28.0-36.0) 10/01/16 07:40 RDW 17.5 % (11.5-20.0) 10/01/16 07:40 Plt Count 204 Th/cmm (150-400) 10/01/16 07:40 MPV 9.1 fl 10/01/16 07:40 Neutrophils % 75.8 % (40.0-80.0) 10/01/16 07:40 Band Neutrophils % 11 % (0-10) H 09/22/16 04:49 Lymphocytes % 13.6 % (20.0-50.0) L 10/01/16 07:40 Monocytes % 6.4 % (2.0-10.0) 10/01/16 07:40 Eosinophils % 3.7 % (0.0-5.0) 10/01/16 07:40 Basophils % 0.5 % (0.0-2.0) 10/01/16 07:40 Neutrophils (Manual) 80 % (40-80) 09/22/16 04:49 Lymphocytes 3 % (20-50) L 09/22/16 04:49 Monocytes 4 % (2-10) 09/22/16 04:49 Eosinophils 2 % (0-5) 09/22/16 04:49 Platelet Estimate DECREASED PLATELETS (NORMAL) 09/22/16 04:49 Platelet Morphology GIANT PLATELETS SEEN (NORMAL) 09/22/16 04:49 Polychromasia 1+ 09/22/16 04:49 Anisocytosis 1+ 09/22/16 04:49 RBC Morph Micro Appear ABNORMAL (NORMAL) 09/22/16 04:49 PT 11.2 SECONDS (9.5-11.5) 09/21/16 09:13 INR 1.12 (0.5-1.4) 09/21/16 09:13 PTT (Actin FS) 23.6 SECONDS (26.0-38.0) L 09/21/16 09:13 Sodium 140 mEq/L (136-145) 10/01/16 04:53 Potassium 4.0 mEq/L (3.5-5.1) 10/01/16 04:53 Chloride 105 mEq/L (98-107) 10/01/16 04:53 Carbon Dioxide 28.4 mEq/L (21.0-31.0) 10/01/16 04:53 Anion Gap 10.6 (7.0-16.0) 10/01/16 04:53 BUN 32 mg/dL (7-25) H 10/01/16 04:53 Creatinine 0.6 mg/dL (0.6-1.2) 10/01/16 04:53 Est GFR ( Amer) > 60.0 ml/min (>90) 10/01/16 04:53 Est GFR (Non-Af Amer) > 60.0 ml/min 10/01/16 04:53 BUN/Creatinine Ratio 53.3 10/01/16 04:53 Glucose 238 mg/dL (70-105) H 10/01/16 04:53 POC Glucose 255 MG/DL (70 - 105) H 10/01/16 06:49 Hemoglobin A1c % 6.5 % (4.0-6.0) H 09/21/16 09:13 Whole Bld Lactic Acid 0.96 mmol/L (0.60-2.00) 09/21/16 22:05 Calcium 9.2 mg/dL (8.6-10.3) 10/01/16 04:53 Magnesium 2.3 mg/dL (1.9-2.7) 09/30/16 04:35 Total Bilirubin 0.3 mg/dL (0.3-1.0) 09/27/16 04:56 Direct Bilirubin 0.07 mg/dL (0.0-0.2) 09/27/16 04:56 AST 36 U/L (13-39) 09/21/16 09:13 ALT 18 U/L (7-52) 09/21/16 09:13 Alkaline Phosphatase 98 U/L (34-104) 09/21/16 09:13 Ammonia 43 umol/L (16-53) 09/27/16 16:49 Troponin I 0.79 ng/mL (0.01-0.05) H* D 09/21/16 22:05 B-Natriuretic Peptide 210.0 pg/mL (5.0-100.0) H 09/30/16 04:35 Total Protein 7.4 gm/dL (6.0-8.3) 09/21/16 09:13 Albumin 3.5 gm/dL (3.7-5.3) L 09/21/16 09:13 Globulin 3.9 gm/dL 09/21/16 09:13 Albumin/Globulin Ratio 0.9 (1.0-1.8) L 09/21/16 09:13 Urine Source CATH 10/01/16 09:30 Urine Color YELLOW 10/01/16 09:30 Urine Clarity SL. CLOUDY (CLEAR) 10/01/16 09:30 Urine pH 7.5 10/01/16 09:30 Ur Specific [place] 1.020 (1.005-1.030) 10/01/16 09:30 Urine Protein 100 mg/dL (NEGATIVE) H 10/01/16 09:30 Urine Glucose (UA) NEGATIVE mg/dL (NEGATIVE) 10/01/16 09:30 Urine Ketones NEGATIVE mg/dL (NEGATIVE) 10/01/16 09:30 Urine Blood SMALL (NEGATIVE) H 10/01/16 09:30 Urine Nitrate NEGATIVE (NEGATIVE) 10/01/16 09:30 Urine Bilirubin NEGATIVE (NEGATIVE) 10/01/16 09:30 Urine Urobilinogen 0.2 E.U./dL (0.2 - 1.0) 10/01/16 09:30 Ur Leukocyte Esterase SMALL (NEGATIVE) H 10/01/16 09:30 Urine RBC 5-10 /hpf (0-5) H 10/01/16 09:30 Urine WBC 25-50 /hpf (0-5) H 10/01/16 09:30 Ur Epithelial Cells OCCASIONAL /lpf (FEW) 10/01/16 09:30 Urine Bacteria FEW /hpf (NONE SEEN) 10/01/16 09:30 Vancomycin Trough 20.4 ug/mL (10-20) H 09/23/16 16:20 Digoxin 2.3 ng/ml (0.8-2.0) H 09/29/16 07:55 - Physical Exam Vitals and I&O: Vital Signs Temp 98.6 F 10/01/16 11:00 Pulse 100 10/01/16 11:00 Resp 17 10/01/16 11:00 BP 138/72 10/01/16 11:00 Pulse Ox 99 10/01/16 11:00 Intake & Output 09/30/16 10/01/16 10/01/16 18:59 06:59 18:59 Intake Total 2300 850 100 Output Total 2900 1600 Balance -600 -750 100 Weight (lbs) 123 lb 3.2 oz Intake: Intake, IV Amount 1200 100 100 Dextrose 5% 1,000 ml @ 40 1000 mls/hr IV .Q24H [facility] Rx#: [id number] Meropenem 1 gm In Sodium 200 100 100 Chloride 0.9% 100 ml @ 100 mls/hr IV Q8HR@0000, 0800,1600 [facility] Rx#: [id number] Oral 0 Tube Feeding 1100 600 Other 150 Output: Urine 2900 1600 Stool 0 Other: # Bowel Movements 1 0 Stool Characteristics Soft Soft Soft Brown Brown Brown Active Medications: Current Medications Acetaminophen (Tylenol 650mg/20.3ml Suspension) 650 mg GT Q4H PRN PRN Reason: MILD PAIN AND FEVER >101 Stop: 11/20/16 12:41 Last Admin: 09/30/16 14:40 Dose: 650 mg Acetaminophen/Hydrocodone Bitart ([place] 5mg/325mg) 1 tab GT Q4H PRN PRN Reason: Moderate-Severe Pain Stop: 11/20/16 12:41 Last Admin: 10/01/16 08:33 Dose: 1 tab Acetylcysteine (Mucomyst 20%) 3 ml HHN Q4HR [facility] Stop: 11/24/16 15:59 Last Admin: 10/01/16 12:09 Dose: 3 ml Albuterol Sulfate (Albuterol 2.5mg/3ml Neb Ud) 2.5 mg HHN Q4HRT [facility] Stop: 11/25/16 10:59 Last Admin: 10/01/16 12:09 Dose: 2.5 mg Ascorbic Acid (Vitamin C) 500 mg GT DAILY [facility] Stop: 11/21/16 08:59 Last Admin: 10/01/16 09:17 Dose: 500 mg Atorvastatin Calcium (Lipitor) 40 mg PO HS [facility] Stop: 11/20/16 20:59 Last Admin: 09/30/16 21:19 Dose: 40 mg Dextrose (D50w) 50 ml IVP PRN PRN PRN Reason: blood sugar < 60 Stop: 11/25/16 21:35 Last Admin: 09/27/16 21:49 Dose: 50 ml Diltiazem HCl (Cardizem) 20 mg IVP Q4H PRN PRN Reason: HR Greater than 130 per min Stop: 11/20/16 12:45 Last Admin: 09/28/16 08:05 Dose: 20 mg Folic Acid (Folate) 1 mg GT DAILY [facility] Stop: 11/21/16 08:59 Last Admin: 10/01/16 09:15 Dose: 1 mg Guaifenesin (Robitussin) 200 mg GT Q4HR PRN PRN Reason: Cough or Congestion Stop: 11/20/16 12:41 Hydromorphone HCl (Dilaudid) 0.5 mg IVP Q4HR PRN PRN Reason: pain Stop: 11/26/16 19:54 Last Admin: 10/01/16 10:25 Dose: 0.5 mg Norepinephrine Bitartrate 4 mg (/ Dextrose) 254 mls @ 38.1 mls/hr IV TITR PRN; Protocol; 10 MCG/MIN PRN Reason: BP MAINTENANCE (PER PROTOCOL) Stop: 11/20/16 23:39 Last Admin: 09/28/16 12:18 Dose: 4 mcg/min, 15.24 mls/hr Meropenem 1 gm/ Sodium (Chloride) 100 mls @ 100 mls/hr IV Q8HR@0000,0800,1600 [facility] Stop: 11/24/16 15:59 Last Infusion: 10/01/16 09:00 Dose: Infused Dextrose (D5w) 1,000 mls @ 10 mls/hr IV .Q24H [facility] Stop: 11/30/16 08:24 Last Admin: 10/01/16 09:15 Dose: 10 mls/hr Insulin Aspart (Novolog) 0 units SUBQ ACHS CHING PRN Reason: Protocol Stop: 11/20/16 16:29 Last Admin: 10/01/16 12:10 Dose: 2 units Ipratropium [place] (Atrovent Neb 0.5mg/2.5ml) 0.5 mg HHN Q4HRT [facility] Stop: 11/25/16 10:59 Last Admin: 10/01/16 12:09 Dose: 0.5 mg Lactobacillus Rhamnosus (Culturelle) 1 each PO DAILY [facility] Stop: 11/24/16 08:59 Last Admin: 10/01/16 09:15 Dose: 1 each Lactulose (Cephulac) 20 gm GT DAILY [facility] Stop: 11/27/16 08:59 Last Admin: 10/01/16 09:16 Dose: 20 gm Loperamide HCl (Imodium) 2 mg GT Q4H PRN PRN Reason: DIARRHEA Stop: 11/20/16 15:12 Magnesium Hydroxide (Milk Of Magnesia) 30 ml GT DAILY PRN PRN Reason: Constipation Stop: 11/20/16 12:41 Metoclopramide HCl (Reglan) 5 mg IVP TID [facility] Stop: 11/29/16 13:59 Last Admin: 10/01/16 09:17 Dose: 5 mg Midodrine (Proamatine) 10 mg GT Q8H [facility] Stop: 11/26/16 22:08 Last Admin: 10/01/16 06:54 Dose: 10 mg Miscellaneous (Probiotic Screen) 1 ea MC PRN PRN PRN Reason: PROTOCOL Stop: 11/24/16 08:48 Miscellaneous (Clinical Monitoring) 1 ea MC PRN PRN PRN Reason: XARELTO Stop: 11/28/16 11:19 Nystatin (Nystop) 100,000 units TP BID [facility] Stop: 11/21/16 08:59 Last Admin: 10/01/16 09:17 Dose: 100,000 units Ondansetron HCl (Zofran) 4 mg IV Q8H PRN PRN Reason: Nausea / Vomiting Stop: 11/20/16 12:45 Rivaroxaban (Xarelto) 10 mg GT DAILY [facility] Stop: 11/21/16 10:59 Last Admin: 10/01/16 09:15 Dose: 10 mg Vitamin A (Vitamin A & D) 5 gm TP DAILY [facility] Stop: 11/21/16 14:59 Last Admin: 10/01/16 09:16 Dose: 5 gm Zinc Sulfate (Zinc Sulfate) 220 mg GT DAILY [facility] Stop: 11/21/16 08:59 Last Admin: 10/01/16 09:16 Dose: 220 mg General: weak HEENT: NC/AT, PERRLA Neck: Supple Abdomen: soft non-tender - Procedures Procedures: Procedures Procedure Code Date BLOOD TRANSFUSION SERVICE 68524 03/06/16 CHANGE GASTROSTOMY TUBE 51869 06/09/14 AGNIESZKA BONE 20 SQ CM/< 63289 01/28/15 DIAGNOSTIC COLONOSCOPY 86104 03/06/16 EGD BIOPSY SINGLE/MULTIPLE 88413 03/06/16 EXCISION OF DUODENUM, ENDO, DIAGN [id number] 03/06/16 EXCISION OF STOMACH, ENDO, DIAGN [id number] 03/06/16 IMMOBILIZ/WOUND ATTN NEC 93.59 01/28/15 INSERT INDWELLING CATH 57.94 10/18/05 INSERT TEMP BLADDER CATH 76224 10/18/05 INSPECTION OF LOWER INTESTINAL TRACT, ENDO [id number] 03/06/16 INSPECTION OF UPPER INTESTINAL TRACT, ENDO [id number] 10/27/15 LOC EXC BONE LESION NEC 77.69 01/28/15 PACKED CELL TRANSFUSION 99.04 10/20/14 REPLACE GASTROSTOMY TUBE 97.02 06/09/14 TRANSFUSE NONAUT RED BLOOD CELLS IN PERIPH VEIN, PERC 95919O6 06/16/16 Internal Medicine Assmt/Plan - Assessment Assessment: sepsis shock pmn acute on crf anemia leukocytosis hypoglycemia mr cp elevated ammonia ESBL URINE MRSA NARES - Plan Plan: dc midodrine pain mgmt ivabx bronchodilators wound care Nutritional Asmnt/Malnutr-PDOC - Dietary Evaluation Malnutrition Findings (Please click <Entered> for more info): Nutritional Asmnt/Malnutrition Start: 09/22/16 12: 31 Text: Status: Complete Freq: Document 09/22/16 12:32 GSUN (Rec: 09/22/16 13:00 GSUN [email or web address]) Nutritional Asmnt/Malnutrition Patient General Information Nutritional Screening High Risk Screening Diagnosis Per ER: sepsis, UTI, HTN, possible PNA, elevated troponin Pertinent Medical Hx/Surgical Hx Per ER: HTN, DM, dyslipidemia, anemia, 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 RD consult for decubitus ulcer and trigger for BG >180. Discussed with RN regarding tube feeding regimens when tube feeding resumed. Unable to obtain new weight due to bedscale not properly calibrated. Current Diet Order/ Nutrition Support NPO Pertinent Medications Vitamin C, lipitor, D5, folate , novolog, novolin, cephulac, MOM, zofran, vancomycin, vitamin A and D, zinc sulfate Pertinent Labs 09/21: BUN 112H, creatinine 1. 6H, glucose 263H, A1c 6.5H, troponin 1.96H 09/22: Potassium 2.8L, BUN 74H (improving), creatinine 1.1 ( improved), glucose 278H POC glucose 58-303H Nutritional Hx/Data Height 4 ft 9 in Height (Calculated Centimeters) 144.8 Current Weight (lbs) 97 lb Weight (Calculated Kilograms) 44.0 Weight (Calculated Grams) 17877.5 Weight Status Approriate GI Symptoms Food Allergies No Cultural/Ethnic/Jew Belief Unknown. 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 Problem Problem Altered nutrition related laboratory values related to Etiology DM aeb Signs/Symptoms: episodes of hypoglycemia and hyperglycemia, 58L and 303H 1. Problem Problem Increased protein and kcal needs related to Etiology hypermetabolic state aeb Signs/Symptoms: sepsis, possible PNA, mulitple ulcerations Intervention/Recommendation Comments 1. Recommend Diabetisource 50ml/hr x 24hrs, providing 1440kcal and 72g protein, for glycemic control and to better meet nutritional needs. 2. Recommend 1 packet Arginaid BID via g-tube for multiple ulcerations wound healing. 3. If episodes of hypoglycemia persists, consider without carbohydrate restriction with Fibersource HN at 50ml/hrs x 24hrs. Expected Outcomes/Goals Expected Outcomes/Goals 1. Pt to meet 100% of estimated nutritional needs on tube feeding + Arginaid with tolerance. Physician Parameters for PEM Serum Albumin (g/dl) 3.5 - 5.0 (Normal)
--- NOTE | 2016-10-01 14:07 | Diagnostic Imaging Report ---
Right upper extremity arterial Doppler study HISTORY: Swollen right arm, pain COMPARISON: None Technique: Longitudinal and transverse sonographic images of the right upper extremity arteries were obtained with doppler analysis. FINDINGS: Due to patient's right upper extremity PICC line, the right brachial artery was not well visualized. There is patency of the right leg and, axillary, radial, and ulnar arteries areas of biphasic and monophasic flow visualized. No evidence of occlusion. Right upper extremity subcutaneous edema is noted. IMPRESSION: Nonvisualization of the right brachial artery due to patient overlying PICC line with overlying dressing. Otherwise there is no sonographic evidence of occlusion. Primarily biphasic and monophasic flow suggestive of underlying mild to moderate atherosclerotic vascular disease. Right upper extremity subcutaneous edema.
[2016-10-01] MEDS: Amikacin 500 mg in D5W 100mL (Q24HR) IV SCH (14:47)
[2016-10-01] MEDS: Atorvastatin Calcium 10 MG TAB PO SCH (21:10)
[2016-10-02] MEDS: HYDROmorphone 1 mg/mL 1mL Syr IVP PRN ×2 (01:40→20:27)
[2016-10-02] MEDS: Albuterol Nebulizer 2.5mg/3mL HHN SCH ×6 (02:48→22:50)
[2016-10-02] MEDS: Ipratropium Neb 0.5 mg/2.5 mL UD HHN SCH ×6 (02:48→22:50)
[2016-10-02 04:52] LABS: % BASOPHILS 0.7 % (0.0-2.0); % EOSINOPHILS 3.2 % (0.0-5.0); % LYMPHOCYTES 17.9 % (20.0-50.0); % MONOCYTES 12.7 % (2.0-10.0); % NEUTROPHILS 65.5 % (40.0-80.0); HEMATOCRIT 25.4 % (35.0-45.0); HEMOGLOBIN 8.4 gm/dL (11.7-15.5); MEAN CORPUSCULAR HEMOGLOBIN 29.6 pg (27.0-31.0); MEAN CORPUSCULAR HGB CONC 33.2 pg (28.0-36.0); MEAN PLATELET VOLUME 8.6 fl; NEUTROPHILE ABSOLUTE 3.5 Th/cmm (1.8-8.0); PLATELET COUNT 169 Th/cmm (150-400); RED BLOOD COUNT 2.86 Mil/cmm (3.80-5.10); WHITE BLOOD COUNT 5.4 Th/cmm (4.8-10.8)
[2016-10-02 05:19] LABS: ANION GAP 8.3 (7.0-16.0); BUN - UREA NITROGEN 29 mg/dL (7-25); BUN/CREATININE RATIO 48.3; CALCIUM SERUM 9.7 mg/dL (8.6-10.3); CARBON DIOXIDE 28.4 mEq/L (21.0-31.0); CHLORIDE 107 mEq/L (98-107); CREATININE - SERUM 0.6 mg/dL (0.6-1.2); GLUCOSE 245 mg/dL (70-105); POTASSIUM SERUM 3.7 mEq/L (3.5-5.1); SODIUM SERUM 140 mEq/L (136-145)
[2016-10-02] MEDS: INSULIN ASPART, RECOMBINANT 100 UNITS/ML SUBQ SCH ×4 (06:51→20:56)
[2016-10-02] MEDS: Hydrocodone/APAP 5mg/325mg Tab GT PRN (08:40)
[2016-10-02] MEDS: Amikacin 500 mg in D5W 100mL (Q24HR) IV SCH (09:00)
[2016-10-02] MEDS: Multivitamin w/ Minerals Tab GT SCH (09:18)
[2016-10-02] MEDS: Dextrose 5% 1,000 ML IV SCH (09:18)
[2016-10-02] MEDS: Lactobacillus Rhamnosus 10 Billion CFU Capsule PO SCH (09:18)
[2016-10-02] MEDS: Lactulose 10 Gm/15 mL 30mL UDC GT SCH (09:19)
[2016-10-02] MEDS: Vitamin A/Vitamin D 5 gm Packet TP SCH (09:19)
[2016-10-02] MEDS: Metoclopramide 5 mg/mL 2mL Vial IVP SCH ×3 (09:19→20:27)
[2016-10-02] MEDS: NYSTATIN 100000 UNITS/GM POWD TP SCH ×2 (09:20→16:14)
--- NOTE | 2016-10-02 12:16 | Internal Medicine Prog Note ---
Internal Medicine Subjective - Subjective Patient seen and examined:: with staff, chart reviewed, other (poor iv access, has one on r elbow) Patient is:: awake, non-verbal, non-interactive Patient Complaints of:: congestion Per staff patient is:: no adverse event, confused Internal Medicine Objective - Results Result Diagrams: 10/02/16 04:34 10/02/16 04:34 Recent Labs: Laboratory Last Values WBC 5.4 Th/cmm (4.8-10.8) 10/02/16 04:34 RBC 2.86 Mil/cmm (3.80-5.10) L 10/02/16 04:34 Hgb 8.4 gm/dL (11.7-15.5) L 10/02/16 04:34 Hct 25.4 % (35.0-45.0) L 10/02/16 04:34 MCV 89.0 fl (81-100) 10/02/16 04:34 MCH 29.6 pg (27.0-31.0) 10/02/16 04:34 MCHC Differential 33.2 pg (28.0-36.0) 10/02/16 04:34 RDW 17.0 % (11.5-20.0) 10/02/16 04:34 Plt Count 169 Th/cmm (150-400) 10/02/16 04:34 MPV 8.6 fl 10/02/16 04:34 Neutrophils % 65.5 % (40.0-80.0) 10/02/16 04:34 Band Neutrophils % 11 % (0-10) H 09/22/16 04:49 Lymphocytes % 17.9 % (20.0-50.0) L 10/02/16 04:34 Monocytes % 12.7 % (2.0-10.0) H 10/02/16 04:34 Eosinophils % 3.2 % (0.0-5.0) 10/02/16 04:34 Basophils % 0.7 % (0.0-2.0) 10/02/16 04:34 Neutrophils (Manual) 80 % (40-80) 09/22/16 04:49 Lymphocytes 3 % (20-50) L 09/22/16 04:49 Monocytes 4 % (2-10) 09/22/16 04:49 Eosinophils 2 % (0-5) 09/22/16 04:49 Platelet Estimate DECREASED PLATELETS (NORMAL) 09/22/16 04:49 Platelet Morphology GIANT PLATELETS SEEN (NORMAL) 09/22/16 04:49 Polychromasia 1+ 09/22/16 04:49 Anisocytosis 1+ 09/22/16 04:49 RBC Morph Micro Appear ABNORMAL (NORMAL) 09/22/16 04:49 PT 11.2 SECONDS (9.5-11.5) 09/21/16 09:13 INR 1.12 (0.5-1.4) 09/21/16 09:13 PTT (Actin FS) 23.6 SECONDS (26.0-38.0) L 09/21/16 09:13 Sodium 140 mEq/L (136-145) 10/02/16 04:34 Potassium 3.7 mEq/L (3.5-5.1) 10/02/16 04:34 Chloride 107 mEq/L (98-107) 10/02/16 04:34 Carbon Dioxide 28.4 mEq/L (21.0-31.0) 10/02/16 04:34 Anion Gap 8.3 (7.0-16.0) 10/02/16 04:34 BUN 29 mg/dL (7-25) H 10/02/16 04:34 Creatinine 0.6 mg/dL (0.6-1.2) 10/02/16 04:34 Est GFR ( Amer) > 60.0 ml/min (>90) 10/02/16 04:34 Est GFR (Non-Af Amer) > 60.0 ml/min 10/02/16 04:34 BUN/Creatinine Ratio 48.3 10/02/16 04:34 Glucose 245 mg/dL (70-105) H 10/02/16 04:34 POC Glucose 236 MG/DL (70 - 105) H 10/02/16 11:17 Hemoglobin A1c % 6.5 % (4.0-6.0) H 09/21/16 09:13 Whole Bld Lactic Acid 0.96 mmol/L (0.60-2.00) 09/21/16 22:05 Calcium 9.7 mg/dL (8.6-10.3) 10/02/16 04:34 Magnesium 2.3 mg/dL (1.9-2.7) 09/30/16 04:35 Total Bilirubin 0.3 mg/dL (0.3-1.0) 09/27/16 04:56 Direct Bilirubin 0.07 mg/dL (0.0-0.2) 09/27/16 04:56 AST 36 U/L (13-39) 09/21/16 09:13 ALT 18 U/L (7-52) 09/21/16 09:13 Alkaline Phosphatase 98 U/L (34-104) 09/21/16 09:13 Ammonia 43 umol/L (16-53) 09/27/16 16:49 Troponin I 0.79 ng/mL (0.01-0.05) H* D 09/21/16 22:05 B-Natriuretic Peptide 210.0 pg/mL (5.0-100.0) H 09/30/16 04:35 Total Protein 7.4 gm/dL (6.0-8.3) 09/21/16 09:13 Albumin 3.5 gm/dL (3.7-5.3) L 09/21/16 09:13 Globulin 3.9 gm/dL 09/21/16 09:13 Albumin/Globulin Ratio 0.9 (1.0-1.8) L 09/21/16 09:13 Urine Source CATH 10/01/16 09:30 Urine Color YELLOW 10/01/16 09:30 Urine Clarity SL. CLOUDY (CLEAR) 10/01/16 09:30 Urine pH 7.5 10/01/16 09:30 Ur Specific [place] 1.020 (1.005-1.030) 10/01/16 09:30 Urine Protein 100 mg/dL (NEGATIVE) H 10/01/16 09:30 Urine Glucose (UA) NEGATIVE mg/dL (NEGATIVE) 10/01/16 09:30 Urine Ketones NEGATIVE mg/dL (NEGATIVE) 10/01/16 09:30 Urine Blood SMALL (NEGATIVE) H 10/01/16 09:30 Urine Nitrate NEGATIVE (NEGATIVE) 10/01/16 09:30 Urine Bilirubin NEGATIVE (NEGATIVE) 10/01/16 09:30 Urine Urobilinogen 0.2 E.U./dL (0.2 - 1.0) 10/01/16 09:30 Ur Leukocyte Esterase SMALL (NEGATIVE) H 10/01/16 09:30 Urine RBC 5-10 /hpf (0-5) H 10/01/16 09:30 Urine WBC 25-50 /hpf (0-5) H 10/01/16 09:30 Ur Epithelial Cells OCCASIONAL /lpf (FEW) 10/01/16 09:30 Urine Bacteria FEW /hpf (NONE SEEN) 10/01/16 09:30 Vancomycin Trough 20.4 ug/mL (10-20) H 09/23/16 16:20 Digoxin 2.3 ng/ml (0.8-2.0) H 09/29/16 07:55 - Physical Exam Vitals and I&O: Vital Signs Temp 97.9 F 10/02/16 12:00 Pulse 107 10/02/16 12:00 Resp 21 10/02/16 12:00 BP 114/67 10/02/16 12:00 Pulse Ox 100 10/02/16 12:00 Intake & Output 10/01/16 10/02/16 10/02/16 18:59 06:59 18:59 Intake Total 1201.4 750 240.5 Output Total 850 2200 Balance 351.4 -1450 240.5 Intake: Intake, IV Amount 201.4 240.5 Amikacin 350 mg In 101.4 Dextrose 5% 100 ml @ 200 mls/hr IV Q24HR@0900 [facility] Rx#:[id number] Dextrose 5% 1,000 ml @ 10 240.5 mls/hr IV .Q24H [facility] Rx#: [id number] Meropenem 1 gm In Sodium 100 Chloride 0.9% 100 ml @ 100 mls/hr IV Q8HR@0000, 0800,1600 [facility] Rx#: [id number] Oral 0 Tube Feeding 600 600 Other 400 150 Output: Urine 850 2200 Other: # Bowel Movements 0 0 Stool Characteristics Soft Soft Soft Brown Brown Brown Active Medications: Current Medications Acetaminophen (Tylenol 650mg/20.3ml Suspension) 650 mg GT Q4H PRN PRN Reason: MILD PAIN AND FEVER >101 Stop: 11/20/16 12:41 Last Admin: 09/30/16 14:40 Dose: 650 mg Acetaminophen/Hydrocodone Bitart ([place] 5mg/325mg) 1 tab GT Q4H PRN PRN Reason: Moderate-Severe Pain Stop: 11/20/16 12:41 Last Admin: 10/02/16 08:40 Dose: 1 tab Acetylcysteine (Mucomyst 20%) 3 ml HHN Q4HR [facility] Stop: 11/24/16 15:59 Last Admin: 10/02/16 11:00 Dose: 3 ml Albuterol Sulfate (Albuterol 2.5mg/3ml Neb Ud) 2.5 mg HHN Q4HRT [facility] Stop: 11/25/16 10:59 Last Admin: 10/02/16 10:59 Dose: 2.5 mg Ascorbic Acid (Vitamin C) 500 mg GT DAILY [facility] Stop: 11/21/16 08:59 Last Admin: 10/02/16 09:18 Dose: 500 mg Atorvastatin Calcium (Lipitor) 40 mg PO HS [facility] Stop: 11/20/16 20:59 Last Admin: 10/01/16 21:10 Dose: 40 mg Dextrose (D50w) 50 ml IVP PRN PRN PRN Reason: blood sugar < 60 Stop: 11/25/16 21:35 Last Admin: 09/27/16 21:49 Dose: 50 ml Diltiazem HCl (Cardizem) 20 mg IVP Q4H PRN PRN Reason: HR Greater than 130 per min Stop: 11/20/16 12:45 Last Admin: 09/28/16 08:05 Dose: 20 mg Folic Acid (Folate) 1 mg GT DAILY [facility] Stop: 11/21/16 08:59 Last Admin: 10/02/16 09:18 Dose: 1 mg Guaifenesin (Robitussin) 200 mg GT Q4HR PRN PRN Reason: Cough or Congestion Stop: 11/20/16 12:41 Hydromorphone HCl (Dilaudid) 0.5 mg IVP Q4HR PRN PRN Reason: pain Stop: 11/26/16 19:54 Last Admin: 10/02/16 01:40 Dose: 0.5 mg Norepinephrine Bitartrate 4 mg (/ Dextrose) 254 mls @ 38.1 mls/hr IV TITR PRN; Protocol; 10 MCG/MIN PRN Reason: BP MAINTENANCE (PER PROTOCOL) Stop: 11/20/16 23:39 Last Admin: 09/28/16 12:18 Dose: 4 mcg/min, 15.24 mls/hr Dextrose (D5w) 1,000 mls @ 10 mls/hr IV .Q24H [facility] Stop: 11/30/16 08:24 Last Admin: 10/02/16 09:18 Dose: 10 mls/hr Amikacin Sulfate 350 mg/ (Dextrose) 101.4 mls @ 200 mls/hr IV Q24HR@0900 [facility] Stop: 11/30/16 14:59 Last Admin: 10/02/16 09:00 Dose: 100 mls/hr Insulin Aspart (Novolog) 0 units SUBQ ACHS [facility] PRN Reason: Protocol Stop: 11/20/16 16:29 Last Admin: 10/02/16 11:24 Dose: 2 units Ipratropium [place] (Atrovent Neb 0.5mg/2.5ml) 0.5 mg HHN Q4HRT [facility] Stop: 11/25/16 10:59 Last Admin: 10/02/16 10:59 Dose: 0.5 mg Lactobacillus Rhamnosus (Culturelle) 1 each PO DAILY [facility] Stop: 11/24/16 08:59 Last Admin: 10/02/16 09:18 Dose: 1 each Lactulose (Cephulac) 20 gm GT DAILY [facility] Stop: 11/27/16 08:59 Last Admin: 10/02/16 09:19 Dose: 20 gm Loperamide HCl (Imodium) 2 mg GT Q4H PRN PRN Reason: DIARRHEA Stop: 11/20/16 15:12 Magnesium Hydroxide (Milk Of Magnesia) 30 ml GT DAILY PRN PRN Reason: Constipation Stop: 11/20/16 12:41 Metoclopramide HCl (Reglan) 5 mg IVP TID [facility] Stop: 11/29/16 13:59 Last Admin: 10/02/16 09:19 Dose: 5 mg Miscellaneous (Probiotic Screen) 1 ea PRN PRN PRN Reason: PROTOCOL Stop: 11/24/16 08:48 Miscellaneous (Clinical Monitoring) 1 ea PRN PRN PRN Reason: XARELTO Stop: 11/28/16 11:19 Miscellaneous (Amikacin Iv Per Pharmacy) 1 ea PRN PRN PRN Reason: PROTOCOL Stop: 11/30/16 13:40 Nystatin (Nystop) 100,000 units TP BID [facility] Stop: 11/21/16 08:59 Last Admin: 10/02/16 09:20 Dose: 100,000 units Ondansetron HCl (Zofran) 4 mg IV Q8H PRN PRN Reason: Nausea / Vomiting Stop: 11/20/16 12:45 Rivaroxaban (Xarelto) 10 mg GT DAILY [facility] Stop: 11/21/16 10:59 Last Admin: 10/02/16 09:19 Dose: 10 mg Vitamin A (Vitamin A & D) 5 gm TP DAILY [facility] Stop: 11/21/16 14:59 Last Admin: 10/02/16 09:19 Dose: 5 gm Zinc Sulfate (Zinc Sulfate) 220 mg GT DAILY [facility] Stop: 11/21/16 08:59 Last Admin: 10/02/16 09:18 Dose: 220 mg General: congested, demented HEENT: NC/AT, other (timmy temporal wasting) Neck: Supple Lungs: congested, rales, ronchi Cardiovascular: RRR, Normal S1, Normal S2 Abdomen: soft non-tender, globular, +GT, positive bowel sound Extremities: excoriation, contracture, other (rue midline) Neurological: no change - Procedures Procedures: Procedures Procedure Code Date BLOOD TRANSFUSION SERVICE 97439 03/06/16 CHANGE GASTROSTOMY TUBE 45619 06/09/14 AGNIESZKA BONE 20 SQ CM/< 94552 01/28/15 DIAGNOSTIC COLONOSCOPY 35325 03/06/16 EGD BIOPSY SINGLE/MULTIPLE 74389 03/06/16 EXCISION OF DUODENUM, ENDO, DIAGN [id number] 03/06/16 EXCISION OF STOMACH, ENDO, DIAGN [id number] 03/06/16 IMMOBILIZ/WOUND ATTN NEC 93.59 01/28/15 INSERT INDWELLING CATH 57.94 10/18/05 INSERT TEMP BLADDER CATH 36324 10/18/05 INSPECTION OF LOWER INTESTINAL TRACT, ENDO [id number] 03/06/16 INSPECTION OF UPPER INTESTINAL TRACT, ENDO [id number] 10/27/15 LOC EXC BONE LESION NEC 77.69 01/28/15 PACKED CELL TRANSFUSION 99.04 10/20/14 REPLACE GASTROSTOMY TUBE 97.02 06/09/14 TRANSFUSE NONAUT RED BLOOD CELLS IN PERIPH VEIN, PERC 72903G3 06/16/16 Internal Medicine Assmt/Plan - Assessment Assessment: sepsis shock sp levophed pmn acute on crf anemia leukocytosis hypoglycemia mr cp elevated ammonia rue edema, ephysema poor iv access - Plan Plan: cont on iv abx, on amikacin and vanco will hold all routine insulin cont on levophed prn critical poor access, will order midline ddw rn see order seen by dr martínez will check us, ct noted Nutritional Asmnt/Malnutr-PDOC - Dietary Evaluation Malnutrition Findings (Please click <Entered> for more info): Nutritional Asmnt/Malnutrition Start: 09/22/16 12: 31 Text: Status: Complete Freq: Document 09/22/16 12:32 GSUN (Rec: 09/22/16 13:00 GSUN [id number]) Nutritional Asmnt/Malnutrition Patient General Information Nutritional Screening High Risk Screening Diagnosis Per ER: sepsis, UTI, HTN, possible PNA, elevated troponin Pertinent Medical Hx/Surgical Hx Per ER: HTN, DM, dyslipidemia, anemia, 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 RD consult for decubitus ulcer and trigger for BG >180. Discussed with RN regarding tube feeding regimens when tube feeding resumed. Unable to obtain new weight due to bedscale not properly calibrated. Current Diet Order/ Nutrition Support NPO Pertinent Medications Vitamin C, lipitor, D5, folate , novolog, novolin, cephulac, MOM, zofran, vancomycin, vitamin A and D, zinc sulfate Pertinent Labs 09/21: BUN 112H, creatinine 1. 6H, glucose 263H, A1c 6.5H, troponin 1.96H 09/22: Potassium 2.8L, BUN 74H (improving), creatinine 1.1 ( improved), glucose 278H POC glucose 58-303H Nutritional Hx/Data Height 1.45 m Height (Calculated Centimeters) 144.8 Current Weight (lbs) 43.998 kg Weight (Calculated Kilograms) 44.0 Weight (Calculated Grams) 67140.5 Weight Status Approriate GI Symptoms Food Allergies No Cultural/Ethnic/[place] Belief Unknown. 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 Problem Problem Altered nutrition related laboratory values related to Etiology DM aeb Signs/Symptoms: episodes of hypoglycemia and hyperglycemia, 58L and 303H 1. Problem Problem Increased protein and kcal needs related to Etiology hypermetabolic state aeb Signs/Symptoms: sepsis, possible PNA, mulitple ulcerations Intervention/Recommendation Comments 1. Recommend Diabetisource 50ml/hr x 24hrs, providing 1440kcal and 72g protein, for glycemic control and to better meet nutritional needs. 2. Recommend 1 packet Arginaid BID via g-tube for multiple ulcerations wound healing. 3. If episodes of hypoglycemia persists, consider without carbohydrate restriction with Fibersource HN at 50ml/hrs x 24hrs. Expected Outcomes/Goals Expected Outcomes/Goals 1. Pt to meet 100% of estimated nutritional needs on tube feeding + Arginaid with tolerance. Physician Parameters for PEM Serum Albumin (g/dl) 3.5 - 5.0 (Normal)
--- NOTE | 2016-10-02 13:35 | General Progress Note ---
Subjective - Review of Systems Service Date: 10/02/16 Events since last encounter: surgical consult for stage 4 sacral decubitus ulcer patient is MR, incontinent and immobile recommendations: diverting colostomy, debridement and wound vac message left with sister who has POA Objective - Results Result Diagrams: 10/02/16 04:34 10/02/16 04:34 Recent Labs: Laboratory Last Values WBC 5.4 Th/cmm (4.8-10.8) 10/02/16 04:34 RBC 2.86 Mil/cmm (3.80-5.10) L 10/02/16 04:34 Hgb 8.4 gm/dL (11.7-15.5) L 10/02/16 04:34 Hct 25.4 % (35.0-45.0) L 10/02/16 04:34 MCV 89.0 fl (81-100) 10/02/16 04:34 MCH 29.6 pg (27.0-31.0) 10/02/16 04:34 MCHC Differential 33.2 pg (28.0-36.0) 10/02/16 04:34 RDW 17.0 % (11.5-20.0) 10/02/16 04:34 Plt Count 169 Th/cmm (150-400) 10/02/16 04:34 MPV 8.6 fl 10/02/16 04:34 Neutrophils % 65.5 % (40.0-80.0) 10/02/16 04:34 Band Neutrophils % 11 % (0-10) H 09/22/16 04:49 Lymphocytes % 17.9 % (20.0-50.0) L 10/02/16 04:34 Monocytes % 12.7 % (2.0-10.0) H 10/02/16 04:34 Eosinophils % 3.2 % (0.0-5.0) 10/02/16 04:34 Basophils % 0.7 % (0.0-2.0) 10/02/16 04:34 Neutrophils (Manual) 80 % (40-80) 09/22/16 04:49 Lymphocytes 3 % (20-50) L 09/22/16 04:49 Monocytes 4 % (2-10) 09/22/16 04:49 Eosinophils 2 % (0-5) 09/22/16 04:49 Platelet Estimate DECREASED PLATELETS (NORMAL) 09/22/16 04:49 Platelet Morphology GIANT PLATELETS SEEN (NORMAL) 09/22/16 04:49 Polychromasia 1+ 09/22/16 04:49 Anisocytosis 1+ 09/22/16 04:49 RBC Morph Micro Appear ABNORMAL (NORMAL) 09/22/16 04:49 PT 11.2 SECONDS (9.5-11.5) 09/21/16 09:13 INR 1.12 (0.5-1.4) 09/21/16 09:13 PTT (Actin FS) 23.6 SECONDS (26.0-38.0) L 09/21/16 09:13 Sodium 140 mEq/L (136-145) 10/02/16 04:34 Potassium 3.7 mEq/L (3.5-5.1) 10/02/16 04:34 Chloride 107 mEq/L (98-107) 10/02/16 04:34 Carbon Dioxide 28.4 mEq/L (21.0-31.0) 10/02/16 04:34 Anion Gap 8.3 (7.0-16.0) 10/02/16 04:34 BUN 29 mg/dL (7-25) H 10/02/16 04:34 Creatinine 0.6 mg/dL (0.6-1.2) 10/02/16 04:34 Est GFR ( Amer) > 60.0 ml/min (>90) 10/02/16 04:34 Est GFR (Non-Af Amer) > 60.0 ml/min 10/02/16 04:34 BUN/Creatinine Ratio 48.3 10/02/16 04:34 Glucose 245 mg/dL (70-105) H 10/02/16 04:34 POC Glucose 236 MG/DL (70 - 105) H 10/02/16 11:17 Hemoglobin A1c % 6.5 % (4.0-6.0) H 09/21/16 09:13 Whole Bld Lactic Acid 0.96 mmol/L (0.60-2.00) 09/21/16 22:05 Calcium 9.7 mg/dL (8.6-10.3) 10/02/16 04:34 Magnesium 2.3 mg/dL (1.9-2.7) 09/30/16 04:35 Total Bilirubin 0.3 mg/dL (0.3-1.0) 09/27/16 04:56 Direct Bilirubin 0.07 mg/dL (0.0-0.2) 09/27/16 04:56 AST 36 U/L (13-39) 09/21/16 09:13 ALT 18 U/L (7-52) 09/21/16 09:13 Alkaline Phosphatase 98 U/L (34-104) 09/21/16 09:13 Ammonia 43 umol/L (16-53) 09/27/16 16:49 Troponin I 0.79 ng/mL (0.01-0.05) H* D 09/21/16 22:05 B-Natriuretic Peptide 210.0 pg/mL (5.0-100.0) H 09/30/16 04:35 Total Protein 7.4 gm/dL (6.0-8.3) 09/21/16 09:13 Albumin 3.5 gm/dL (3.7-5.3) L 09/21/16 09:13 Globulin 3.9 gm/dL 09/21/16 09:13 Albumin/Globulin Ratio 0.9 (1.0-1.8) L 09/21/16 09:13 Urine Source CATH 10/01/16 09:30 Urine Color YELLOW 10/01/16 09:30 Urine Clarity SL. CLOUDY (CLEAR) 10/01/16 09:30 Urine pH 7.5 10/01/16 09:30 Ur Specific Ernest 1.020 (1.005-1.030) 10/01/16 09:30 Urine Protein 100 mg/dL (NEGATIVE) H 10/01/16 09:30 Urine Glucose (UA) NEGATIVE mg/dL (NEGATIVE) 10/01/16 09:30 Urine Ketones NEGATIVE mg/dL (NEGATIVE) 10/01/16 09:30 Urine Blood SMALL (NEGATIVE) H 10/01/16 09:30 Urine Nitrate NEGATIVE (NEGATIVE) 10/01/16 09:30 Urine Bilirubin NEGATIVE (NEGATIVE) 10/01/16 09:30 Urine Urobilinogen 0.2 E.U./dL (0.2 - 1.0) 10/01/16 09:30 Ur Leukocyte Esterase SMALL (NEGATIVE) H 10/01/16 09:30 Urine RBC 5-10 /hpf (0-5) H 10/01/16 09:30 Urine WBC 25-50 /hpf (0-5) H 10/01/16 09:30 Ur Epithelial Cells OCCASIONAL /lpf (FEW) 10/01/16 09:30 Urine Bacteria FEW /hpf (NONE SEEN) 10/01/16 09:30 Vancomycin Trough 20.4 ug/mL (10-20) H 09/23/16 16:20 Digoxin 2.3 ng/ml (0.8-2.0) H 09/29/16 07:55 - Physical Exam Vitals and I&O: Vital Signs Temp 97.9 F 10/02/16 12:00 Pulse 107 10/02/16 12:00 Resp 21 10/02/16 12:00 BP 114/67 10/02/16 12:00 Pulse Ox 100 10/02/16 12:00 Intake & Output 10/01/16 10/02/16 10/02/16 18:59 06:59 18:59 Intake Total 1201.4 750 240.5 Output Total 850 2200 Balance 351.4 -1450 240.5 Intake: Intake, IV Amount 201.4 240.5 Amikacin 350 mg In 101.4 Dextrose 5% 100 ml @ 200 mls/hr IV Q24HR@0900 [facility] Rx#:[id number] Dextrose 5% 1,000 ml @ 10 240.5 mls/hr IV .Q24H [facility] Rx#: [id number] Meropenem 1 gm In Sodium 100 Chloride 0.9% 100 ml @ 100 mls/hr IV Q8HR@0000, 0800,1600 [facility] Rx#: [id number] Oral 0 Tube Feeding 600 600 Other 400 150 Output: Urine 850 2200 Other: # Bowel Movements 0 0 Stool Characteristics Soft Soft Soft Brown Brown Brown Active Medications: Current Medications Acetaminophen (Tylenol 650mg/20.3ml Suspension) 650 mg GT Q4H PRN PRN Reason: MILD PAIN AND FEVER >101 Stop: 11/20/16 12:41 Last Admin: 09/30/16 14:40 Dose: 650 mg Acetaminophen/Hydrocodone Bitart ([place] 5mg/325mg) 1 tab GT Q4H PRN PRN Reason: Moderate-Severe Pain Stop: 11/20/16 12:41 Last Admin: 10/02/16 08:40 Dose: 1 tab Acetylcysteine (Mucomyst 20%) 3 ml HHN Q4HR [facility] Stop: 11/24/16 15:59 Last Admin: 10/02/16 11:00 Dose: 3 ml Albuterol Sulfate (Albuterol 2.5mg/3ml Neb Ud) 2.5 mg HHN Q4HRT [facility] Stop: 11/25/16 10:59 Last Admin: 10/02/16 10:59 Dose: 2.5 mg Ascorbic Acid (Vitamin C) 500 mg GT DAILY [facility] Stop: 11/21/16 08:59 Last Admin: 10/02/16 09:18 Dose: 500 mg Atorvastatin Calcium (Lipitor) 40 mg PO HS [facility] Stop: 11/20/16 20:59 Last Admin: 10/01/16 21:10 Dose: 40 mg Dextrose (D50w) 50 ml IVP PRN PRN PRN Reason: blood sugar < 60 Stop: 11/25/16 21:35 Last Admin: 09/27/16 21:49 Dose: 50 ml Diltiazem HCl (Cardizem) 20 mg IVP Q4H PRN PRN Reason: HR Greater than 130 per min Stop: 11/20/16 12:45 Last Admin: 09/28/16 08:05 Dose: 20 mg Folic Acid (Folate) 1 mg GT DAILY [facility] Stop: 11/21/16 08:59 Last Admin: 10/02/16 09:18 Dose: 1 mg Guaifenesin (Robitussin) 200 mg GT Q4HR PRN PRN Reason: Cough or Congestion Stop: 11/20/16 12:41 Hydromorphone HCl (Dilaudid) 0.5 mg IVP Q4HR PRN PRN Reason: pain Stop: 11/26/16 19:54 Last Admin: 10/02/16 01:40 Dose: 0.5 mg Norepinephrine Bitartrate 4 mg (/ Dextrose) 254 mls @ 38.1 mls/hr IV TITR PRN; Protocol; 10 MCG/MIN PRN Reason: BP MAINTENANCE (PER PROTOCOL) Stop: 11/20/16 23:39 Last Admin: 09/28/16 12:18 Dose: 4 mcg/min, 15.24 mls/hr Dextrose (D5w) 1,000 mls @ 10 mls/hr IV .Q24H [facility] Stop: 11/30/16 08:24 Last Admin: 10/02/16 09:18 Dose: 10 mls/hr Amikacin Sulfate 350 mg/ (Dextrose) 101.4 mls @ 200 mls/hr IV Q24HR@0900 [facility] Stop: 11/30/16 14:59 Last Admin: 10/02/16 09:00 Dose: 100 mls/hr Insulin Aspart (Novolog) 0 units SUBQ ACHS [facility] PRN Reason: Protocol Stop: 11/20/16 16:29 Last Admin: 10/02/16 11:24 Dose: 2 units Ipratropium Wana (Atrovent Neb 0.5mg/2.5ml) 0.5 mg HHN Q4HRT [facility] Stop: 11/25/16 10:59 Last Admin: 10/02/16 10:59 Dose: 0.5 mg Lactobacillus Rhamnosus (Culturelle) 1 each PO DAILY [facility] Stop: 11/24/16 08:59 Last Admin: 10/02/16 09:18 Dose: 1 each Lactulose (Cephulac) 20 gm GT DAILY [facility] Stop: 11/27/16 08:59 Last Admin: 10/02/16 09:19 Dose: 20 gm Loperamide HCl (Imodium) 2 mg GT Q4H PRN PRN Reason: DIARRHEA Stop: 11/20/16 15:12 Magnesium Hydroxide (Milk Of Magnesia) 30 ml GT DAILY PRN PRN Reason: Constipation Stop: 11/20/16 12:41 Metoclopramide HCl (Reglan) 5 mg IVP TID [facility] Stop: 11/29/16 13:59 Last Admin: 10/02/16 09:19 Dose: 5 mg Miscellaneous (Probiotic Screen) 1 ea PRN PRN PRN Reason: PROTOCOL Stop: 11/24/16 08:48 Miscellaneous (Clinical Monitoring) 1 ea PRN PRN PRN Reason: XARELTO Stop: 11/28/16 11:19 Miscellaneous (Amikacin Iv Per Pharmacy) 1 ea PRN PRN PRN Reason: PROTOCOL Stop: 11/30/16 13:40 Nystatin (Nystop) 100,000 units TP BID [facility] Stop: 11/21/16 08:59 Last Admin: 10/02/16 09:20 Dose: 100,000 units Ondansetron HCl (Zofran) 4 mg IV Q8H PRN PRN Reason: Nausea / Vomiting Stop: 11/20/16 12:45 Rivaroxaban (Xarelto) 10 mg GT DAILY [facility] Stop: 11/21/16 10:59 Last Admin: 10/02/16 09:19 Dose: 10 mg Vitamin A (Vitamin A & D) 5 gm TP DAILY [facility] Stop: 11/21/16 14:59 Last Admin: 10/02/16 09:19 Dose: 5 gm Zinc Sulfate (Zinc Sulfate) 220 mg GT DAILY [facility] Stop: 11/21/16 08:59 Last Admin: 10/02/16 09:18 Dose: 220 mg - Procedures Procedures: Procedures Procedure Code Date BLOOD TRANSFUSION SERVICE 95228 03/06/16 CHANGE GASTROSTOMY TUBE 94656 06/09/14 AGNIESZKA BONE 20 SQ CM/< 40342 01/28/15 DIAGNOSTIC COLONOSCOPY 66461 03/06/16 EGD BIOPSY SINGLE/MULTIPLE 24257 03/06/16 EXCISION OF DUODENUM, ENDO, DIAGN [id number] 03/06/16 EXCISION OF STOMACH, ENDO, DIAGN [id number] 03/06/16 IMMOBILIZ/WOUND ATTN NEC 93.59 01/28/15 INSERT INDWELLING CATH 57.94 10/18/05 INSERT TEMP BLADDER CATH 67721 10/18/05 INSPECTION OF LOWER INTESTINAL TRACT, ENDO [id number] 03/06/16 INSPECTION OF UPPER INTESTINAL TRACT, ENDO [id number] 10/27/15 LOC EXC BONE LESION NEC 77.69 01/28/15 PACKED CELL TRANSFUSION 99.04 10/20/14 REPLACE GASTROSTOMY TUBE 97.02 06/09/14 TRANSFUSE NONAUT RED BLOOD CELLS IN PERIPH VEIN, PERC [id number] 06/16/16 Assessment/Plan - Problem List Patient Problems: All Active Problems HYPOTENSION WITH TACHYCARDIA AND CONGEST (Acute) Anemia (Acute 03/06/16) D64.9 Dyspnea (Acute) R06.00 Fever, unspecified (Acute) R50.9 Hyperglycemia (Acute) R73.9 Hyperosmolality and/or hypernatremia (Acute) E87.0 Mental retardation (Acute) F79 Other abnormal clinical finding (Acute) R68.89 Pneumonia (Acute) J18.9 Staphylococcal sepsis (Acute) Uncontrolled diabetes mellitus (Acute) E11.65 Urinary tract infection (Acute) Nutritional Asmnt/Malnutr-PDOC - Dietary Evaluation Malnutrition Findings (Please click <Entered> for more info): Nutritional Asmnt/Malnutrition Start: 09/22/16 12: 31 Text: Status: Complete Freq: Document 09/22/16 12:32 GSCHAO (Rec: 09/22/16 13:00 [email or web address] [id number]) Nutritional Asmnt/Malnutrition Patient General Information Nutritional Screening High Risk Screening Diagnosis Per ER: sepsis, UTI, HTN, possible PNA, elevated troponin Pertinent Medical Hx/Surgical Hx Per ER: HTN, DM, dyslipidemia, anemia, presacral decube grade 2-4 Per chart [facility] 09/08/16: acute and chronic resp failure, chronic asthma, DM2, HTN, CKD, dysphagia, cerebral palsy Subjective Information 56yo F, non verbal, g-tube dependent. RD consult for decubitus ulcer and trigger for BG >180. Discussed with RN regarding tube feeding regimens when tube feeding resumed. Unable to obtain new weight due to bedscale not properly calibrated. Current Diet Order/ Nutrition Support NPO Pertinent Medications Vitamin C, lipitor, D5, folate , novolog, novolin, cephulac, MOM, zofran, vancomycin, vitamin A and D, zinc sulfate Pertinent Labs 09/21: BUN 112H, creatinine 1. 6H, glucose 263H, A1c 6.5H, troponin 1.96H 09/22: Potassium 2.8L, BUN 74H (improving), creatinine 1.1 ( improved), glucose 278H POC glucose 58-303H Nutritional Hx/Data Height 1.45 m Height (Calculated Centimeters) 144.8 Current Weight (lbs) 43.998 kg Weight (Calculated Kilograms) 44.0 Weight (Calculated Grams) 07112.5 Weight Status Approriate GI Symptoms Food Allergies No Cultural/Ethnic/Cheondoism Belief Unknown. 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 Problem Problem Altered nutrition related laboratory values related to Etiology DM aeb Signs/Symptoms: episodes of hypoglycemia and hyperglycemia, 58L and 303H 1. Problem Problem Increased protein and kcal needs related to Etiology hypermetabolic state aeb Signs/Symptoms: sepsis, possible PNA, mulitple ulcerations Intervention/Recommendation Comments 1. Recommend Diabetisource 50ml/hr x 24hrs, providing 1440kcal and 72g protein, for glycemic control and to better meet nutritional needs. 2. Recommend 1 packet Arginaid BID via g-tube for multiple ulcerations wound healing. 3. If episodes of hypoglycemia persists, consider without carbohydrate restriction with Fibersource HN at 50ml/hrs x 24hrs. Expected Outcomes/Goals Expected Outcomes/Goals 1. Pt to meet 100% of estimated nutritional needs on tube feeding + Arginaid with tolerance. Physician Parameters for PEM Serum Albumin (g/dl) 3.5 - 5.0 (Normal)
[2016-10-02] MEDS: Atorvastatin Calcium 10 MG TAB PO SCH (20:26)
[2016-10-03] MEDS: D5-0.45NS 1,000 ML IV SCH ×2 (00:19→20:02)
[2016-10-03] MEDS: Albuterol Nebulizer 2.5mg/3mL HHN SCH ×5 (03:21→23:31)
[2016-10-03] MEDS: Ipratropium Neb 0.5 mg/2.5 mL UD HHN SCH ×5 (03:22→23:31)
[2016-10-03 05:03] LABS: % BASOPHILS 0.5 % (0.0-2.0); % EOSINOPHILS 4.5 % (0.0-5.0); % LYMPHOCYTES 34.7 % (20.0-50.0); % MONOCYTES 8.2 % (2.0-10.0); % NEUTROPHILS 52.1 % (40.0-80.0); HEMATOCRIT 25.7 % (35.0-45.0); HEMOGLOBIN 8.1 gm/dL (11.7-15.5); MEAN CELL VOLUME 89.2 fl (81-100); MEAN CORPUSCULAR HGB CONC 31.4 pg (28.0-36.0); MEAN PLATELET VOLUME 8.3 fl; NEUTROPHILE ABSOLUTE 1.6 Th/cmm (1.8-8.0); PLATELET COUNT 192 Th/cmm (150-400); RED BLOOD COUNT 2.88 Mil/cmm (3.80-5.10); RED CELL DISTRIBUTION WIDTH 17.2 % (11.5-20.0)
[2016-10-03 05:11] LABS: WHITE BLOOD COUNT 3.1 Th/cmm (4.8-10.8)
[2016-10-03 05:31] LABS: ALB/GLOB RATIO 0.8 (1.0-1.8); ALKALINE PHOSPHATASE 119 U/L (34-104); BILIRUBIN,TOTAL 0.3 mg/dL (0.3-1.0); BUN - UREA NITROGEN 28 mg/dL (7-25); BUN/CREATININE RATIO 46.7; CALCIUM SERUM 10.1 mg/dL (8.6-10.3); CARBON DIOXIDE 30.9 mEq/L (21.0-31.0); CHLORIDE 107 mEq/L (98-107); CREATININE - SERUM 0.6 mg/dL (0.6-1.2); GLUCOSE 208 mg/dL (70-105); MAGNESIUM 2.1 mg/dL (1.9-2.7); POTASSIUM SERUM 3.9 mEq/L (3.5-5.1); SGOT 39 U/L (13-39); SGPT/ALT 23 U/L (7-52); SODIUM SERUM 143 mEq/L (136-145)
[2016-10-03 05:41] LABS: INR 0.99 (0.5-1.4); PROTHROMBIN TIME (TEST) 10.3 SECONDS (9.5-11.5)
[2016-10-03] MEDS: INSULIN ASPART, RECOMBINANT 100 UNITS/ML SUBQ SCH ×5 (07:24→21:32)
[2016-10-03] MEDS: Amikacin 500 mg in D5W 100mL (Q24HR) IV SCH (08:42)
[2016-10-03] MEDS: Metoclopramide 5 mg/mL 2mL Vial IVP SCH ×3 (09:00→20:11)
[2016-10-03] MEDS: Lactobacillus Rhamnosus 10 Billion CFU Capsule PO SCH (09:07)
[2016-10-03] MEDS: Lactulose 10 Gm/15 mL 30mL UDC GT SCH (09:08)
[2016-10-03] MEDS: Multivitamin w/ Minerals Tab GT SCH (09:09)
[2016-10-03] MEDS ORDERED: Midazolam 1mg/ml 2 ml vial IV ONE (10:23)
[2016-10-03] MEDS ORDERED: Meperidine 50 mg/mL 1mL Syr ONE (10:23)
--- NOTE | 2016-10-03 11:10 | Diagnostic Imaging Report ---
Portable chest x-ray HISTORY: Shortness of breath Compared to prior exam of October 01, 2016, there is a severe scoliosis of the thoracic spine convexity to the right associated with patient rotation. There is a poor inspiration. Allowing for this factor, no acute focal pulmonary processes. IMPRESSION: 1. Allowing for a poor inspiration, no definite acute focal pulmonary processes.
[2016-10-03] MEDS ORDERED: fentaNYL Citrate 100 mcg/2mL Vial ONE (11:25)
[2016-10-03] MEDS ORDERED: metroNIDAZOLE 500mg/NS 100mL 500 MG/100 ML BAG IV ONE (11:38)
[2016-10-03] MEDS ORDERED: Piperacillin Sodium/Tazobact 3.375 gm Vial IV ONE (11:38)
[2016-10-03] MEDS ORDERED: Lactated Ringer 1,000 ML IV SCH (12:15)
--- NOTE | 2016-10-03 13:10 | Internal Medicine Prog Note ---
Internal Medicine Subjective - Subjective Patient seen and examined:: with staff, chart reviewed Patient is:: verbal, non-interactive, other (on vent) Patient Complaints of:: congestion (on vnet support) Internal Medicine Objective - Results Result Diagrams: 10/03/16 04:45 10/03/16 04:45 Recent Labs: Laboratory Last Values WBC 3.1 Th/cmm (4.8-10.8) L D 10/03/16 04:45 RBC 2.88 Mil/cmm (3.80-5.10) L 10/03/16 04:45 Hgb 8.1 gm/dL (11.7-15.5) L 10/03/16 04:45 Hct 25.7 % (35.0-45.0) L 10/03/16 04:45 MCV 89.2 fl (81-100) 10/03/16 04:45 MCH 28.0 pg (27.0-31.0) 10/03/16 04:45 MCHC Differential 31.4 pg (28.0-36.0) 10/03/16 04:45 RDW 17.2 % (11.5-20.0) 10/03/16 04:45 Plt Count 192 Th/cmm (150-400) 10/03/16 04:45 MPV 8.3 fl 10/03/16 04:45 Neutrophils % 52.1 % (40.0-80.0) 10/03/16 04:45 Band Neutrophils % 11 % (0-10) H 09/22/16 04:49 Lymphocytes % 34.7 % (20.0-50.0) 10/03/16 04:45 Monocytes % 8.2 % (2.0-10.0) 10/03/16 04:45 Eosinophils % 4.5 % (0.0-5.0) 10/03/16 04:45 Basophils % 0.5 % (0.0-2.0) 10/03/16 04:45 Neutrophils (Manual) 80 % (40-80) 09/22/16 04:49 Lymphocytes 3 % (20-50) L 09/22/16 04:49 Monocytes 4 % (2-10) 09/22/16 04:49 Eosinophils 2 % (0-5) 09/22/16 04:49 Platelet Estimate DECREASED PLATELETS (NORMAL) 09/22/16 04:49 Platelet Morphology GIANT PLATELETS SEEN (NORMAL) 09/22/16 04:49 Polychromasia 1+ 09/22/16 04:49 Anisocytosis 1+ 09/22/16 04:49 RBC Morph Micro Appear ABNORMAL (NORMAL) 09/22/16 04:49 PT 10.3 SECONDS (9.5-11.5) 10/03/16 04:45 INR 0.99 (0.5-1.4) 10/03/16 04:45 PTT (Actin FS) 26.3 SECONDS (26.0-38.0) 10/03/16 04:45 Sodium 143 mEq/L (136-145) 10/03/16 04:45 Potassium 3.9 mEq/L (3.5-5.1) 10/03/16 04:45 Chloride 107 mEq/L (98-107) 10/03/16 04:45 Carbon Dioxide 30.9 mEq/L (21.0-31.0) 10/03/16 04:45 Anion Gap 9.0 (7.0-16.0) 10/03/16 04:45 BUN 28 mg/dL (7-25) H 10/03/16 04:45 Creatinine 0.6 mg/dL (0.6-1.2) 10/03/16 04:45 Est GFR ( Amer) > 60.0 ml/min (>90) 10/03/16 04:45 Est GFR (Non-Af Amer) > 60.0 ml/min 10/03/16 04:45 BUN/Creatinine Ratio 46.7 10/03/16 04:45 Glucose 208 mg/dL (70-105) H 10/03/16 04:45 POC Glucose 214 MG/DL (70 - 105) H 10/03/16 06:30 Hemoglobin A1c % 6.5 % (4.0-6.0) H 09/21/16 09:13 Whole Bld Lactic Acid 0.96 mmol/L (0.60-2.00) 09/21/16 22:05 Calcium 10.1 mg/dL (8.6-10.3) 10/03/16 04:45 Magnesium 2.1 mg/dL (1.9-2.7) 10/03/16 04:45 Total Bilirubin 0.3 mg/dL (0.3-1.0) 10/03/16 04:45 Direct Bilirubin 0.07 mg/dL (0.0-0.2) 09/27/16 04:56 AST 39 U/L (13-39) 10/03/16 04:45 ALT 23 U/L (7-52) 10/03/16 04:45 Alkaline Phosphatase 119 U/L (34-104) H 10/03/16 04:45 Ammonia 52 umol/L (16-53) 10/03/16 04:45 Troponin I 0.79 ng/mL (0.01-0.05) H* D 09/21/16 22:05 B-Natriuretic Peptide 64.0 pg/mL (5.0-100.0) 10/03/16 04:45 Total Protein 6.5 gm/dL (6.0-8.3) 10/03/16 04:45 Albumin 2.8 gm/dL (3.7-5.3) L 10/03/16 04:45 Globulin 3.7 gm/dL 10/03/16 04:45 Albumin/Globulin Ratio 0.8 (1.0-1.8) L 10/03/16 04:45 Urine Source CATH 10/01/16 09:30 Urine Color YELLOW 10/01/16 09:30 Urine Clarity SL. CLOUDY (CLEAR) 10/01/16 09:30 Urine pH 7.5 10/01/16 09:30 Ur Specific [place] 1.020 (1.005-1.030) 10/01/16 09:30 Urine Protein 100 mg/dL (NEGATIVE) H 10/01/16 09:30 Urine Glucose (UA) NEGATIVE mg/dL (NEGATIVE) 10/01/16 09:30 Urine Ketones NEGATIVE mg/dL (NEGATIVE) 10/01/16 09:30 Urine Blood SMALL (NEGATIVE) H 10/01/16 09:30 Urine Nitrate NEGATIVE (NEGATIVE) 10/01/16 09:30 Urine Bilirubin NEGATIVE (NEGATIVE) 10/01/16 09:30 Urine Urobilinogen 0.2 E.U./dL (0.2 - 1.0) 10/01/16 09:30 Ur Leukocyte Esterase SMALL (NEGATIVE) H 10/01/16 09:30 Urine RBC 5-10 /hpf (0-5) H 10/01/16 09:30 Urine WBC 25-50 /hpf (0-5) H 10/01/16 09:30 Ur Epithelial Cells OCCASIONAL /lpf (FEW) 10/01/16 09:30 Urine Bacteria FEW /hpf (NONE SEEN) 10/01/16 09:30 Vancomycin Trough 20.4 ug/mL (10-20) H 09/23/16 16:20 Digoxin 2.3 ng/ml (0.8-2.0) H 09/29/16 07:55 Blood Type O POSITIVE 10/03/16 08:05 Antibody Screen NEGATIVE 10/03/16 08:05 - Physical Exam Vitals and I&O: Vital Signs Temp 97.8 F 10/03/16 07:00 Pulse 93 10/03/16 07:55 Resp 20 10/03/16 07:55 BP 122/70 10/03/16 07:00 Pulse Ox 100 10/03/16 07:55 Intake & Output 10/02/16 10/03/16 10/03/16 18:59 06:59 18:59 Intake Total 1341.9 350 Output Total 1150 1500 Balance 191.9 -1150 Intake: Intake, IV Amount 341.9 Amikacin 350 mg In 101.4 Dextrose 5% 100 ml @ 200 mls/hr IV Q24HR@0900 [facility] Rx#:[id number] Dextrose 5% 1,000 ml @ 10 240.5 mls/hr IV .Q24H [facility] Rx#: [id number] Oral 0 Tube Feeding 600 300 Other 400 50 Output: Urine 1150 1500 Stool 0 Other: # Bowel Movements 0 Stool Characteristics Soft Brown Active Medications: Current Medications Acetaminophen (Tylenol 650mg/20.3ml Suspension) 650 mg GT Q4H PRN PRN Reason: MILD PAIN AND FEVER >101 Stop: 11/20/16 12:41 Last Admin: 09/30/16 14:40 Dose: 650 mg Acetaminophen/Hydrocodone Bitart (Walker 5mg/325mg) 1 tab GT Q4H PRN PRN Reason: Moderate-Severe Pain Stop: 11/20/16 12:41 Last Admin: 10/02/16 08:40 Dose: 1 tab Acetylcysteine (Mucomyst 20%) 3 ml HHN Q4HR [facility] Stop: 11/24/16 15:59 Last Admin: 10/03/16 07:55 Dose: 3 ml Albuterol Sulfate (Albuterol 2.5mg/3ml Neb Ud) 2.5 mg HHN Q4HRT [facility] Stop: 11/25/16 10:59 Last Admin: 10/03/16 07:55 Dose: 2.5 mg Ascorbic Acid (Vitamin C) 500 mg GT DAILY [facility] Stop: 11/21/16 08:59 Last Admin: 10/03/16 09:07 Dose: Not Given Atorvastatin Calcium (Lipitor) 40 mg PO HS [facility] Stop: 11/20/16 20:59 Last Admin: 10/02/16 20:26 Dose: 40 mg Chlorhexidine Gluconate (Peridex) 15 ml MM 0800,2000 [facility] Stop: 12/02/16 19:59 Dextrose (D50w) 50 ml IVP PRN PRN PRN Reason: blood sugar < 60 Stop: 11/25/16 21:35 Last Admin: 09/27/16 21:49 Dose: 50 ml Diltiazem HCl (Cardizem) 20 mg IVP Q4H PRN PRN Reason: HR Greater than 130 per min Stop: 11/20/16 12:45 Last Admin: 09/28/16 08:05 Dose: 20 mg Folic Acid (Folate) 1 mg GT DAILY [facility] Stop: 11/21/16 08:59 Last Admin: 10/03/16 09:07 Dose: Not Given Guaifenesin (Robitussin) 200 mg GT Q4HR PRN PRN Reason: Cough or Congestion Stop: 11/20/16 12:41 Hydromorphone HCl (Dilaudid) 0.5 mg IVP Q4HR PRN PRN Reason: pain Stop: 11/26/16 19:54 Last Admin: 10/02/16 20:27 Dose: 0.5 mg Norepinephrine Bitartrate 4 mg (/ Dextrose) 254 mls @ 38.1 mls/hr IV TITR PRN; Protocol; 10 MCG/MIN PRN Reason: BP MAINTENANCE (PER PROTOCOL) Stop: 11/20/16 23:39 Last Admin: 09/28/16 12:18 Dose: 4 mcg/min, 15.24 mls/hr Dextrose (D5w) 1,000 mls @ 10 mls/hr IV .Q24H [facility] Stop: 11/30/16 08:24 Last Admin: 10/02/16 09:18 Dose: 10 mls/hr Amikacin Sulfate 350 mg/ (Dextrose) 101.4 mls @ 200 mls/hr IV Q24HR@0900 [facility] Stop: 11/30/16 14:59 Last Admin: 10/03/16 08:42 Dose: 100 mls/hr Dextrose/Sodium Chloride (D5-0.45ns) 1,000 mls @ 50 mls/hr IV .Q20H [facility] Stop: 10/04/16 00:00 Last Admin: 10/03/16 00:19 Dose: 50 mls/hr Lactated Ringer's (Lactated Ringer) 1,000 mls @ 0 mls/hr IV .Q0M [facility] PRN Reason: TKO Stop: 10/04/16 12:14 Insulin Aspart (Novolog) 0 units SUBQ ACHS [facility] PRN Reason: Protocol Stop: 11/20/16 16:29 Last Admin: 10/03/16 09:19 Dose: 2 units Ipratropium [place] (Atrovent Neb 0.5mg/2.5ml) 0.5 mg HHN Q4HRT [facility] Stop: 11/25/16 10:59 Last Admin: 10/03/16 07:55 Dose: 0.5 mg Lactobacillus Rhamnosus (Culturelle) 1 each PO DAILY [facility] Stop: 11/24/16 08:59 Last Admin: 10/03/16 09:07 Dose: Not Given Lactulose (Cephulac) 20 gm GT DAILY [facility] Stop: 11/27/16 08:59 Last Admin: 10/03/16 09:08 Dose: Not Given Loperamide HCl (Imodium) 2 mg GT Q4H PRN PRN Reason: DIARRHEA Stop: 11/20/16 15:12 Magnesium Hydroxide (Milk Of Magnesia) 30 ml GT DAILY PRN PRN Reason: Constipation Stop: 11/20/16 12:41 Metoclopramide HCl (Reglan) 5 mg IVP TID [facility] Stop: 11/29/16 13:59 Last Admin: 10/02/16 20:27 Dose: 5 mg Miscellaneous (Probiotic Screen) 1 ea PRN PRN PRN Reason: PROTOCOL Stop: 11/24/16 08:48 Miscellaneous (Clinical Monitoring) 1 ea PRN PRN PRN Reason: XARELTO Stop: 11/28/16 11:19 Miscellaneous (Amikacin Iv Per Pharmacy) 1 ea MC PRN PRN PRN Reason: PROTOCOL Stop: 11/30/16 13:40 Nystatin (Nystop) 100,000 units TP BID [facility] Stop: 11/21/16 08:59 Last Admin: 10/02/16 16:14 Dose: 100,000 units Ondansetron HCl (Zofran) 4 mg IV Q8H PRN PRN Reason: Nausea / Vomiting Stop: 11/20/16 12:45 Ondansetron HCl (Zofran) 4 mg IV PRN PRN PRN Reason: Nausea / Vomiting Stop: 10/03/16 21:00 Rivaroxaban (Xarelto) 10 mg GT DAILY [facility] Stop: 11/21/16 10:59 Last Admin: 10/03/16 09:09 Dose: Not Given Vitamin A (Vitamin A & D) 5 gm TP DAILY [facility] Stop: 11/21/16 14:59 Last Admin: 10/02/16 09:19 Dose: 5 gm Zinc Sulfate (Zinc Sulfate) 220 mg GT DAILY [facility] Stop: 11/21/16 08:59 Last Admin: 10/03/16 09:11 Dose: Not Given General: lethargic, demented HEENT: NC/AT, PERRLA Neck: Supple, No JVD, other (ett) Lungs: congested, rales Cardiovascular: RRR, Normal S1, Normal S2 Abdomen: soft non-tender, +GT, positive bowel sound Extremities: excoriation, contracture, ulcers stage 4, other (colostomy) Neurological: unable to follow command - Procedures Procedures: Procedures Procedure Code Date BLOOD TRANSFUSION SERVICE 74256 03/06/16 CHANGE GASTROSTOMY TUBE 47585 06/09/14 AGNIESZKA BONE 20 SQ CM/< 26219 01/28/15 DIAGNOSTIC COLONOSCOPY 55727 03/06/16 EGD BIOPSY SINGLE/MULTIPLE 86530 03/06/16 EXCISION OF DUODENUM, ENDO, DIAGN [id number] 03/06/16 EXCISION OF STOMACH, ENDO, DIAGN [id number] 03/06/16 IMMOBILIZ/WOUND ATTN NEC 93.59 01/28/15 INSERT INDWELLING CATH 57.94 10/18/05 INSERT TEMP BLADDER CATH 96890 10/18/05 INSPECTION OF LOWER INTESTINAL TRACT, ENDO [id number] 03/06/16 INSPECTION OF UPPER INTESTINAL TRACT, ENDO [id number] 10/27/15 LOC EXC BONE LESION NEC 77.69 01/28/15 PACKED CELL TRANSFUSION 99.04 10/20/14 REPLACE GASTROSTOMY TUBE 97.02 06/09/14 TRANSFUSE NONAUT RED BLOOD CELLS IN PERIPH VEIN, PERC [id number] 06/16/16 Internal Medicine Assmt/Plan - Assessment Assessment: sepsis shock sp levophed pmn acute on crf anemia leukocytosis hypoglycemia mr cp elevated ammonia rue edema, ephysema poor iv access ducub ulcer 4 sp colostomy - Plan Plan: vent weaning cont on iv abx, on amikacin and vanco will hold all routine insulin cont on levophed prn critical poor access, will order midline ddw rn see order seen by dr martínez will check us, ct noted Nutritional Asmnt/Malnutr-PDOC - Dietary Evaluation Malnutrition Findings (Please click <Entered> for more info): Nutritional Asmnt/Malnutrition Start: 09/22/16 12: 31 Text: Status: Complete Freq: Document 09/22/16 12:32 GSUN (Rec: 09/22/16 13:00 GSUN MARION-FN) Nutritional Asmnt/Malnutrition Patient General Information Nutritional Screening High Risk Screening Diagnosis Per ER: sepsis, UTI, HTN, possible PNA, elevated troponin Pertinent Medical Hx/Surgical Hx Per ER: HTN, DM, dyslipidemia, anemia, 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 RD consult for decubitus ulcer and trigger for BG >180. Discussed with RN regarding tube feeding regimens when tube feeding resumed. Unable to obtain new weight due to bedscale not properly calibrated. Current Diet Order/ Nutrition Support NPO Pertinent Medications Vitamin C, lipitor, D5, folate , novolog, novolin, cephulac, MOM, zofran, vancomycin, vitamin A and D, zinc sulfate Pertinent Labs 09/21: BUN 112H, creatinine 1. 6H, glucose 263H, A1c 6.5H, troponin 1.96H 09/22: Potassium 2.8L, BUN 74H (improving), creatinine 1.1 ( improved), glucose 278H POC glucose 58-303H Nutritional Hx/Data Height 1.45 m Height (Calculated Centimeters) 144.8 Current Weight (lbs) 43.998 kg Weight (Calculated Kilograms) 44.0 Weight (Calculated Grams) 99532.5 Weight Status Approriate GI Symptoms Food Allergies No Cultural/Ethnic/Yarsani Belief Unknown. 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 Problem Problem Altered nutrition related laboratory values related to Etiology DM aeb Signs/Symptoms: episodes of hypoglycemia and hyperglycemia, 58L and 303H 1. Problem Problem Increased protein and kcal needs related to Etiology hypermetabolic state aeb Signs/Symptoms: sepsis, possible PNA, mulitple ulcerations Intervention/Recommendation Comments 1. Recommend Diabetisource 50ml/hr x 24hrs, providing 1440kcal and 72g protein, for glycemic control and to better meet nutritional needs. 2. Recommend 1 packet Arginaid BID via g-tube for multiple ulcerations wound healing. 3. If episodes of hypoglycemia persists, consider without carbohydrate restriction with Fibersource HN at 50ml/hrs x 24hrs. Expected Outcomes/Goals Expected Outcomes/Goals 1. Pt to meet 100% of estimated nutritional needs on tube feeding + Arginaid with tolerance. Physician Parameters for PEM Serum Albumin (g/dl) 3.5 - 5.0 (Normal)
--- NOTE | 2016-10-03 13:30 | Consultation ---
REFERRING PHYSICIAN: Dr. Sidhu. REASON FOR CONSULTATION: Stage IV sacral decubitus ulcer. Thank you for referring this patient to me. HISTORY OF PRESENT ILLNESS: This is a 56-year-old female initially admitted because of tachycardia and respiratory distress. The patient has history of mental retardation and cerebral palsy, diabetes, hypertension and hyperglycemia. The patient was seen by multiple consultants including tactical air control party, Dr. Campos, vending technician, Dr. Jha. The laboratory studies today showed WBC was normal and hemoglobin is 8.4 with platelet count of normal. Chemistry, BUN is 29. The patient has undergone upper extremity ultrasound, which did not show any evidence of DVT of the upper extremity veins. Chest x-ray, there is improvement in the left-sided infiltrate and ____. PHYSICAL EXAMINATION: GENERAL: The patient is awake, but unable to give any information because of her mental status. CHEST: There are decreased breath sounds on the left side consistent with large hiatal hernia with part of the stomach in the left chest. GASTROINTESTINAL: There is a gastrostomy and feeding tube in place. The abdomen is soft. There is a scar from previous surgery. Significant finding is stage IV sacral decubitus ulcer measuring about 10 cm. The sister was called via telephone and message was left regarding the ideal treatment which would include diverting colostomy and excisional debridement and wound VAC application of sacral decubitus ulcer. Consent was given later after I left a message. We will schedule patient's surgery. [facility]# [id number]
[2016-10-03] MEDS: HYDROmorphone 1 mg/mL 1mL Syr IVP PRN (14:00)
--- NOTE | 2016-10-03 14:08 | Diagnostic Imaging Report ---
Portable chest x-ray HISTORY: Vascular catheter placement, shortness of breath Compared with prior exam performed earlier in the day (0745 hours), right-sided vascular catheters been inserted. The tip extends into the region of the superior vena cava. No focal pulmonary processes are seen. An endotracheal tube tip is approximately 2.5 cm above the randa. IMPRESSION: 1. New vascular catheter with the tip in the region of the superior vena cava 2. No focal pulmonary processes
[2016-10-03] MEDS: Chlorhexidine Gluconate 0.12% 15mL Mouthwash MM SCH (20:04)
[2016-10-03] MEDS: Atorvastatin Calcium 10 MG TAB PO SCH (23:34)
[2016-10-04] MEDS: HYDROmorphone 1 mg/mL 1mL Syr IVP PRN (00:30)
[2016-10-04] MEDS: Albuterol Nebulizer 2.5mg/3mL HHN SCH ×7 (03:35→22:51)
[2016-10-04] MEDS: Ipratropium Neb 0.5 mg/2.5 mL UD HHN SCH ×6 (03:36→22:50)
[2016-10-04 05:13] LABS: MEAN CORPUSCULAR HEMOGLOBIN 29.2 pg (27.0-31.0); MEAN CORPUSCULAR HGB CONC 33.2 pg (28.0-36.0); MEAN PLATELET VOLUME 8.6 fl; PLATELET COUNT 175 Th/cmm (150-400); RED BLOOD COUNT 2.68 Mil/cmm (3.80-5.10); RED CELL DISTRIBUTION WIDTH 16.9 % (11.5-20.0); WHITE BLOOD COUNT 6.2 Th/cmm (4.8-10.8)
[2016-10-04 05:17] LABS: HEMATOCRIT 23.6 % (35.0-45.0); HEMOGLOBIN 7.8 gm/dL (11.7-15.5)
[2016-10-04 05:21] LABS: ALB/GLOB RATIO 0.7 (1.0-1.8); ALKALINE PHOSPHATASE 82 U/L (34-104); ANION GAP 6.7 (7.0-16.0); BILIRUBIN,TOTAL 0.3 mg/dL (0.3-1.0); BUN - UREA NITROGEN 20 mg/dL (7-25); BUN/CREATININE RATIO 33.3; CALCIUM SERUM 8.9 mg/dL (8.6-10.3); CARBON DIOXIDE 26.6 mEq/L (21.0-31.0); CHLORIDE 109 mEq/L (98-107); CREATININE - SERUM 0.6 mg/dL (0.6-1.2); GLUCOSE 261 mg/dL (70-105); MAGNESIUM 1.8 mg/dL (1.9-2.7); POTASSIUM SERUM 3.3 mEq/L (3.5-5.1); SGOT 27 U/L (13-39); SGPT/ALT 18 U/L (7-52); SODIUM SERUM 139 mEq/L (136-145)
[2016-10-04] MEDS: INSULIN ASPART, RECOMBINANT 100 UNITS/ML SUBQ SCH ×6 (06:31→20:37)
[2016-10-04 07:13] LABS: ANISOCYTOSIS 1+; BAND NEUTROPHILE 6 % (0-10); EOSINOPHIL 5 % (0-5); NEUTROPHILS 64 % (40-80); PLATELET ESTIMATE ADEQUATE (NORMAL); PLATELET MORPHOLOGY NORMAL (NORMAL); TOTAL CELLS COUNTED 100
[2016-10-04] MEDS: Multivitamin w/ Minerals Tab GT SCH (08:44)
[2016-10-04] MEDS: Lactobacillus Rhamnosus 10 Billion CFU Capsule PO SCH (08:46)
[2016-10-04] MEDS: Metoclopramide 5 mg/mL 2mL Vial IVP SCH ×3 (08:46→20:42)
--- NOTE | 2016-10-04 09:38 | General Progress Note ---
Subjective - Review of Systems Service Date: 10/04/16 Subjective: VS stable urine output adequate extubated, on air O2 sat ok Hb 7.8 gm, might need PRBC dressings dry Objective - Results Result Diagrams: 10/04/16 04:36 10/04/16 04:36 Recent Labs: Laboratory Last Values WBC 6.2 Th/cmm (4.8-10.8) D 10/04/16 04:36 RBC 2.68 Mil/cmm (3.80-5.10) L 10/04/16 04:36 Hgb 7.8 gm/dL (11.7-15.5) L* 10/04/16 04:36 Hct 23.6 % (35.0-45.0) L* 10/04/16 04:36 MCV 88.0 fl (81-100) 10/04/16 04:36 MCH 29.2 pg (27.0-31.0) 10/04/16 04:36 MCHC Differential 33.2 pg (28.0-36.0) 10/04/16 04:36 RDW 16.9 % (11.5-20.0) 10/04/16 04:36 Plt Count 175 Th/cmm (150-400) 10/04/16 04:36 MPV 8.6 fl 10/04/16 04:36 Neutrophils % 52.1 % (40.0-80.0) 10/03/16 04:45 Band Neutrophils % 6 % (0-10) 10/04/16 04:36 Lymphocytes % 34.7 % (20.0-50.0) 10/03/16 04:45 Monocytes % 8.2 % (2.0-10.0) 10/03/16 04:45 Eosinophils % 4.5 % (0.0-5.0) 10/03/16 04:45 Basophils % 0.5 % (0.0-2.0) 10/03/16 04:45 Neutrophils (Manual) 64 % (40-80) 10/04/16 04:36 Lymphocytes 17 % (20-50) L 10/04/16 04:36 Monocytes 8 % (2-10) 10/04/16 04:36 Eosinophils 5 % (0-5) 10/04/16 04:36 Platelet Estimate ADEQUATE (NORMAL) 10/04/16 04:36 Platelet Morphology NORMAL (NORMAL) 10/04/16 04:36 Polychromasia 1+ 09/22/16 04:49 Anisocytosis 1+ 10/04/16 04:36 RBC Morph Micro Appear ABNORMAL (NORMAL) 10/04/16 04:36 PT 10.3 SECONDS (9.5-11.5) 10/03/16 04:45 INR 0.99 (0.5-1.4) 10/03/16 04:45 PTT (Actin FS) 26.3 SECONDS (26.0-38.0) 10/03/16 04:45 Sodium 139 mEq/L (136-145) 10/04/16 04:36 Potassium 3.3 mEq/L (3.5-5.1) L 10/04/16 04:36 Chloride 109 mEq/L (98-107) H 10/04/16 04:36 Carbon Dioxide 26.6 mEq/L (21.0-31.0) 10/04/16 04:36 Anion Gap 6.7 (7.0-16.0) L 10/04/16 04:36 BUN 20 mg/dL (7-25) 10/04/16 04:36 Creatinine 0.6 mg/dL (0.6-1.2) 10/04/16 04:36 Est GFR ( Amer) > 60.0 ml/min (>90) 10/04/16 04:36 Est GFR (Non-Af Amer) > 60.0 ml/min 10/04/16 04:36 BUN/Creatinine Ratio 33.3 10/04/16 04:36 Glucose 261 mg/dL (70-105) H 10/04/16 04:36 POC Glucose 261 MG/DL (70 - 105) H 10/03/16 20:16 Hemoglobin A1c % 6.5 % (4.0-6.0) H 09/21/16 09:13 Whole Bld Lactic Acid 0.96 mmol/L (0.60-2.00) 09/21/16 22:05 Calcium 8.9 mg/dL (8.6-10.3) 10/04/16 04:36 Magnesium 1.8 mg/dL (1.9-2.7) L 10/04/16 04:36 Total Bilirubin 0.3 mg/dL (0.3-1.0) 10/04/16 04:36 Direct Bilirubin 0.07 mg/dL (0.0-0.2) 09/27/16 04:56 AST 27 U/L (13-39) 10/04/16 04:36 ALT 18 U/L (7-52) 10/04/16 04:36 Alkaline Phosphatase 82 U/L (34-104) 10/04/16 04:36 Ammonia 52 umol/L (16-53) 10/03/16 04:45 Troponin I 0.79 ng/mL (0.01-0.05) H* D 09/21/16 22:05 B-Natriuretic Peptide 64.0 pg/mL (5.0-100.0) 10/03/16 04:45 Total Protein 5.7 gm/dL (6.0-8.3) L 10/04/16 04:36 Albumin 2.4 gm/dL (3.7-5.3) L 10/04/16 04:36 Globulin 3.3 gm/dL 10/04/16 04:36 Albumin/Globulin Ratio 0.7 (1.0-1.8) L 10/04/16 04:36 Urine Source CATH 10/01/16 09:30 Urine Color YELLOW 10/01/16 09:30 Urine Clarity SL. CLOUDY (CLEAR) 10/01/16 09:30 Urine pH 7.5 10/01/16 09:30 Ur Specific [place] 1.020 (1.005-1.030) 10/01/16 09:30 Urine Protein 100 mg/dL (NEGATIVE) H 10/01/16 09:30 Urine Glucose (UA) NEGATIVE mg/dL (NEGATIVE) 10/01/16 09:30 Urine Ketones NEGATIVE mg/dL (NEGATIVE) 10/01/16 09:30 Urine Blood SMALL (NEGATIVE) H 10/01/16 09:30 Urine Nitrate NEGATIVE (NEGATIVE) 10/01/16 09:30 Urine Bilirubin NEGATIVE (NEGATIVE) 10/01/16 09:30 Urine Urobilinogen 0.2 E.U./dL (0.2 - 1.0) 10/01/16 09:30 Ur Leukocyte Esterase SMALL (NEGATIVE) H 10/01/16 09:30 Urine RBC 5-10 /hpf (0-5) H 10/01/16 09:30 Urine WBC 25-50 /hpf (0-5) H 10/01/16 09:30 Ur Epithelial Cells OCCASIONAL /lpf (FEW) 10/01/16 09:30 Urine Bacteria FEW /hpf (NONE SEEN) 10/01/16 09:30 Vancomycin Trough 20.4 ug/mL (10-20) H 09/23/16 16:20 Digoxin 2.3 ng/ml (0.8-2.0) H 09/29/16 07:55 Blood Type O POSITIVE 10/03/16 08:05 Antibody Screen NEGATIVE 10/03/16 08:05 - Physical Exam Vitals and I&O: Vital Signs Temp 97.5 F 10/04/16 04:00 Pulse 107 10/04/16 07:05 Resp 17 10/04/16 07:05 BP 108/63 10/04/16 06:00 Pulse Ox 100 10/04/16 07:05 Intake & Output 10/03/16 10/04/16 10/04/16 18:59 06:59 18:59 Intake Total 985.833 Output Total 1100 450 Balance -1100 535.833 Intake: Intake, IV Amount 985.833 D5-0.45NS 1,000 ml @ 50 985.833 mls/hr IV .Q20H [facility] Rx#: [id number] Oral 0 Output: Urine 1100 400 Other 50 Other: # Bowel Movements 0 Stool Characteristics Soft Brown Active Medications: Current Medications Acetaminophen (Tylenol 650mg/20.3ml Suspension) 650 mg GT Q4H PRN PRN Reason: MILD PAIN AND FEVER >101 Stop: 11/20/16 12:41 Last Admin: 09/30/16 14:40 Dose: 650 mg Acetaminophen/Hydrocodone Bitart ([place] 5mg/325mg) 1 tab GT Q4H PRN PRN Reason: Moderate-Severe Pain Stop: 11/20/16 12:41 Last Admin: 10/02/16 08:40 Dose: 1 tab Acetylcysteine (Mucomyst 20%) 3 ml HHN Q4HR [facility] Stop: 11/24/16 15:59 Last Admin: 10/04/16 07:03 Dose: 3 ml Albuterol Sulfate (Albuterol 2.5mg/3ml Neb Ud) 2.5 mg HHN Q4HRT [facility] Stop: 11/25/16 10:59 Last Admin: 10/04/16 07:03 Dose: 2.5 mg Ascorbic Acid (Vitamin C) 500 mg GT DAILY [facility] Stop: 11/21/16 08:59 Last Admin: 10/04/16 08:42 Dose: 500 mg Atorvastatin Calcium (Lipitor) 40 mg PO HS [facility] Stop: 11/20/16 20:59 Last Admin: 10/03/16 23:34 Dose: Not Given Chlorhexidine Gluconate (Peridex) 15 ml MM 0800,2000 [facility] Stop: 12/02/16 19:59 Last Admin: 10/03/16 20:04 Dose: 15 ml Dextrose (D50w) 50 ml IVP PRN PRN PRN Reason: blood sugar < 60 Stop: 11/25/16 21:35 Last Admin: 09/27/16 21:49 Dose: 50 ml Diltiazem HCl (Cardizem) 20 mg IVP Q4H PRN PRN Reason: HR Greater than 130 per min Stop: 11/20/16 12:45 Last Admin: 09/28/16 08:05 Dose: 20 mg Folic Acid (Folate) 1 mg GT DAILY [facility] Stop: 11/21/16 08:59 Last Admin: 10/04/16 08:48 Dose: 1 mg Guaifenesin (Robitussin) 200 mg GT Q4HR PRN PRN Reason: Cough or Congestion Stop: 11/20/16 12:41 Hydromorphone HCl (Dilaudid) 0.5 mg IVP Q4HR PRN PRN Reason: pain Stop: 11/26/16 19:54 Last Admin: 10/04/16 00:30 Dose: 0.5 mg Norepinephrine Bitartrate 4 mg (/ Dextrose) 254 mls @ 38.1 mls/hr IV TITR PRN; Protocol; 10 MCG/MIN PRN Reason: BP MAINTENANCE (PER PROTOCOL) Stop: 11/20/16 23:39 Last Admin: 09/28/16 12:18 Dose: 4 mcg/min, 15.24 mls/hr Dextrose (D5w) 1,000 mls @ 10 mls/hr IV .Q24H [facility] Stop: 11/30/16 08:24 Last Admin: 10/02/16 09:18 Dose: 10 mls/hr Amikacin Sulfate 350 mg/ (Dextrose) 101.4 mls @ 200 mls/hr IV Q24HR@0900 [facility] Stop: 11/30/16 14:59 Last Admin: 10/03/16 08:42 Dose: 100 mls/hr Lactated Ringer's (Lactated Ringer) 1,000 mls @ 0 mls/hr IV .Q0M [facility] PRN Reason: TKO Stop: 10/04/16 12:14 Insulin Aspart (Novolog) 0 units SUBQ ACHS [facility] PRN Reason: Protocol Stop: 11/20/16 16:29 Last Admin: 10/04/16 07:15 Dose: 4 units Ipratropium [place] (Atrovent Neb 0.5mg/2.5ml) 0.5 mg HHN Q4HRT [facility] Stop: 11/25/16 10:59 Last Admin: 10/04/16 07:03 Dose: 0.5 mg Lactobacillus Rhamnosus (Culturelle) 1 each PO DAILY [facility] Stop: 11/24/16 08:59 Last Admin: 10/04/16 08:46 Dose: 1 each Lactulose (Cephulac) 20 gm GT DAILY [facility] Stop: 11/27/16 08:59 Last Admin: 10/03/16 09:08 Dose: Not Given Loperamide HCl (Imodium) 2 mg GT Q4H PRN PRN Reason: DIARRHEA Stop: 11/20/16 15:12 Magnesium Hydroxide (Milk Of Magnesia) 30 ml GT DAILY PRN PRN Reason: Constipation Stop: 11/20/16 12:41 Metoclopramide HCl (Reglan) 5 mg IVP TID [facility] Stop: 11/29/16 13:59 Last Admin: 10/04/16 08:46 Dose: 5 mg Miscellaneous (Probiotic Screen) 1 ea PRN PRN PRN Reason: PROTOCOL Stop: 11/24/16 08:48 Miscellaneous (Clinical Monitoring) 1 ea PRN PRN PRN Reason: XARELTO Stop: 11/28/16 11:19 Miscellaneous (Amikacin Iv Per Pharmacy) 1 ea PRN PRN PRN Reason: PROTOCOL Stop: 11/30/16 13:40 Nystatin (Nystop) 100,000 units TP BID [facility] Stop: 11/21/16 08:59 Last Admin: 10/02/16 16:14 Dose: 100,000 units Ondansetron HCl (Zofran) 4 mg IV Q8H PRN PRN Reason: Nausea / Vomiting Stop: 11/20/16 12:45 Rivaroxaban (Xarelto) 10 mg GT DAILY [facility] Stop: 11/21/16 10:59 Last Admin: 10/04/16 08:45 Dose: 10 mg Vitamin A (Vitamin A & D) 5 gm TP DAILY [facility] Stop: 11/21/16 14:59 Last Admin: 10/02/16 09:19 Dose: 5 gm Zinc Sulfate (Zinc Sulfate) 220 mg GT DAILY [facility] Stop: 11/21/16 08:59 Last Admin: 10/04/16 08:44 Dose: 220 mg - Procedures Procedures: Procedures Procedure Code Date BLOOD TRANSFUSION SERVICE 86663 03/06/16 CHANGE GASTROSTOMY TUBE 01724 06/09/14 AGNIESZKA BONE 20 SQ CM/< 27630 01/28/15 DIAGNOSTIC COLONOSCOPY 51046 03/06/16 EGD BIOPSY SINGLE/MULTIPLE 32823 03/06/16 EXCISION OF DUODENUM, ENDO, DIAGN [id number] 03/06/16 EXCISION OF STOMACH, ENDO, DIAGN [id number] 03/06/16 IMMOBILIZ/WOUND ATTN NEC 93.59 01/28/15 INSERT INDWELLING CATH 57.94 10/18/05 INSERT TEMP BLADDER CATH 49603 10/18/05 INSPECTION OF LOWER INTESTINAL TRACT, ENDO [id number] 03/06/16 INSPECTION OF UPPER INTESTINAL TRACT, ENDO [id number] 10/27/15 LOC EXC BONE LESION NEC 77.69 01/28/15 PACKED CELL TRANSFUSION 99.04 10/20/14 REPLACE GASTROSTOMY TUBE 97.02 06/09/14 TRANSFUSE NONAUT RED BLOOD CELLS IN PERIPH VEIN, PERC 36164M7 06/16/16 Assessment/Plan - Problem List Patient Problems: All Active Problems HYPOTENSION WITH TACHYCARDIA AND CONGEST (Acute) Anemia (Acute 03/06/16) D64.9 Dyspnea (Acute) R06.00 Fever, unspecified (Acute) R50.9 Hyperglycemia (Acute) R73.9 Hyperosmolality and/or hypernatremia (Acute) E87.0 Mental retardation (Acute) F79 Other abnormal clinical finding (Acute) R68.89 Pneumonia (Acute) J18.9 Staphylococcal sepsis (Acute) Uncontrolled diabetes mellitus (Acute) E11.65 Urinary tract infection (Acute) Nutritional Asmnt/Malnutr-PDOC - Dietary Evaluation Malnutrition Findings (Please click <Entered> for more info): Nutritional Asmnt/Malnutrition Start: 09/22/16 12: 31 Text: Status: Complete Freq: Document 09/22/16 12:32 SANTINO (Rec: 09/22/16 13:00 RITOCHAO [id number]) Nutritional Asmnt/Malnutrition Patient General Information Nutritional Screening High Risk Screening Diagnosis Per ER: sepsis, UTI, HTN, possible PNA, elevated troponin Pertinent Medical Hx/Surgical Hx Per ER: HTN, DM, dyslipidemia, anemia, 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 RD consult for decubitus ulcer and trigger for BG >180. Discussed with RN regarding tube feeding regimens when tube feeding resumed. Unable to obtain new weight due to bedscale not properly calibrated. Current Diet Order/ Nutrition Support NPO Pertinent Medications Vitamin C, lipitor, D5, folate , novolog, novolin, cephulac, MOM, zofran, vancomycin, vitamin A and D, zinc sulfate Pertinent Labs 09/21: BUN 112H, creatinine 1. 6H, glucose 263H, A1c 6.5H, troponin 1.96H 09/22: Potassium 2.8L, BUN 74H (improving), creatinine 1.1 ( improved), glucose 278H POC glucose 58-303H Nutritional Hx/Data Height 1.45 m Height (Calculated Centimeters) 144.8 Current Weight (lbs) 43.998 kg Weight (Calculated Kilograms) 44.0 Weight (Calculated Grams) 24822.5 Weight Status Approriate GI Symptoms Food Allergies No Cultural/Ethnic/Congregation Belief Unknown. Usual diet at home [place]: glucerna 1.2 at 60ml/hr x 20hrs with 200ml flush Q4hrs Skin Integrity/Comment: registered pharmacist: ulceration sacrum, right tow, right foot, left foot Estimated Nutritional Goals BEE in Kcals: Using Current wt Calories/Kcals/Kg 30-35kcal/kg Kcals Calculated 1320-1544kcal Protein: Using Current wt Protein g/k.5-1.7g/kg Protein Calculated 66-75g Fluid: ml 1320-1544ml (1ml/kcal) Nutritional Problem 2. Problem Problem Altered nutrition related laboratory values related to Etiology DM aeb Signs/Symptoms: episodes of hypoglycemia and hyperglycemia, 58L and 303H 1. Problem Problem Increased protein and kcal needs related to Etiology hypermetabolic state aeb Signs/Symptoms: sepsis, possible PNA, mulitple ulcerations Intervention/Recommendation Comments 1. Recommend Diabetisource 50ml/hr x 24hrs, providing 1440kcal and 72g protein, for glycemic control and to better meet nutritional needs. 2. Recommend 1 packet Arginaid BID via g-tube for multiple ulcerations wound healing. 3. If episodes of hypoglycemia persists, consider without carbohydrate restriction with Fibersource HN at 50ml/hrs x 24hrs. Expected Outcomes/Goals Expected Outcomes/Goals 1. Pt to meet 100% of estimated nutritional needs on tube feeding + Arginaid with tolerance. Physician Parameters for PEM Serum Albumin (g/dl) 3.5 - 5.0 (Normal)
--- NOTE | 2016-10-04 10:28 | Diagnostic Imaging Report ---
Portable chest x-ray HISTORY: Shortness of breath Compared to prior exam of October 03, 2016, the endotracheal tube has been removed. No definite acute focal pulmonary processes. Retrocardiac air density consistent with a hiatal hernia noted. IMPRESSION: 1. Status post removal endotracheal tube 2. No definite focal pulmonary processes 3. Retrocardiac air density suggesting a hiatal hernia.
[2016-10-04] MEDS: NYSTATIN 100000 UNITS/GM POWD TP SCH ×2 (11:33→18:37)
[2016-10-04] MEDS: Vitamin A/Vitamin D 5 gm Packet TP SCH (11:34)
[2016-10-04] MEDS: Amikacin 500 mg in D5W 100mL (Q24HR) IV SCH (11:35)
--- NOTE | 2016-10-04 11:44 | Operative Report ---
PREOPERATIVE DIAGNOSES: 1. Stage IV sacral decubitus ulcer. 2. Mental retardation. 3. Diabetes mellitus. 4. Hypertension. POSTOPERATIVE DIAGNOSES: 1. Stage IV sacral decubitus ulcer. 2. Mental retardation. 3. Diabetes mellitus. 4. Hypertension. OPERATION DONE: 1. Diverting colostomy. 2. Resection of approximately 18 inches of redundant colon. 3. Excisional debridement of sacral decubitus ulcer, stage IV. 4. Application of wound VAC. 5. Partial ostectomy of sacral bone. SURGEON: Miguel Fernandez M.D. ANESTHESIA: General. ANESTHESIOLOGIST: Blayne Mcmillan M.D. ESTIMATED BLOOD LOSS: 50 mL. INDICATIONS FOR SURGERY: The patient with stage IV sacral decubitus ulcer and incontinence of urine and stool. The patient has diabetes, hypertension and cerebral palsy. Informed consent discussed with the sister who has power of casting director and consent was given for diverting colostomy and wound VAC application. Possible complications discussed and informed consent was signed. DESCRIPTION OF PROCEDURE: The patient was given general anesthesia. The abdomen was prepped with ChloraPrep and draped in appropriate manner. Midline lower abdominal incision was made. Bleeders were coagulated. The fascia was incised and the abdominal cavity entered. Retractor was applied. The colon was inspected and was found to be very redundant with hard ____ stool is present. The distal colon was divided with a BRENDA instrument and the cut ends were reprepped with Betadine. The staple line was oversewn with running suture of 3-0 silk. Because of the colon redundancy and the possibility that this might cause mechanical obstruction, the descending colon was transected right at the point where this would be the ideal length for the location of the colostomy. The intervening portion of the mesentery was then transected utilizing LigaSure. This measured about 18 inches. The colostomy site was selected in lower quadrant of the abdomen and skin was excised and the fascia was divided vertically. The descending colon is brought out through this and secured in place in the abdomen utilizing interrupted sutures of 3-0 silk. The mesentery was anchored to the lateral abdominal wall to prevent internal herniation. The abdominal incision was closed with running suture of #1 PDS. Subcutaneous tissues were closed with 3-0 Vicryl and the skin was closed with subcuticular suture of 4-0 Vicryl. Dermabond and 4 x 4 and Op-Site was placed over this to prevent ____ from the colostomy site. The colostomy was matured utilizing everting suture of 4-0 Vicryl and a colostomy bag was placed over this. The patient was then turned on her side and the sacral decubitus ulcer was prepped with Betadine. Size of the ulcer 10 x 8 cm with necrotic tissue in the area, particularly related to sacral bone. Because of the sharp edges of the sacral bone, this was removed utilizing rongeurs. Hemostasis was achieved with cautery. Antibiotic ointment and silver sponge was applied over this and then the wound VAC. The patient tolerated the procedure well. JOB# [id number]
[2016-10-04] MEDS ORDERED: KCL 20mEq/100mL Premix 20 MEQ/100 ML PIGGYBACK IV ONE (11:47)
[2016-10-04] MEDS: Lactulose 10 Gm/15 mL 30mL UDC GT SCH (14:00)
[2016-10-04] MEDS ORDERED: Mag Sulfate 2gm/50mL Premix 2 GM/50 ML BAG IV ONE (14:38)
--- NOTE | 2016-10-04 14:40 | Internal Medicine Prog Note ---
Internal Medicine Subjective - Subjective Patient seen and examined:: with staff, chart reviewed Patient is:: awake, non-verbal, non-interactive Patient Complaints of:: congestion Per staff patient is:: confused Internal Medicine Objective - Results Result Diagrams: 10/04/16 04:36 10/04/16 04:36 Recent Labs: Laboratory Last Values WBC 6.2 Th/cmm (4.8-10.8) D 10/04/16 04:36 RBC 2.68 Mil/cmm (3.80-5.10) L 10/04/16 04:36 Hgb 7.8 gm/dL (11.7-15.5) L* 10/04/16 04:36 Hct 23.6 % (35.0-45.0) L* 10/04/16 04:36 MCV 88.0 fl (81-100) 10/04/16 04:36 MCH 29.2 pg (27.0-31.0) 10/04/16 04:36 MCHC Differential 33.2 pg (28.0-36.0) 10/04/16 04:36 RDW 16.9 % (11.5-20.0) 10/04/16 04:36 Plt Count 175 Th/cmm (150-400) 10/04/16 04:36 MPV 8.6 fl 10/04/16 04:36 Neutrophils % 52.1 % (40.0-80.0) 10/03/16 04:45 Band Neutrophils % 6 % (0-10) 10/04/16 04:36 Lymphocytes % 34.7 % (20.0-50.0) 10/03/16 04:45 Monocytes % 8.2 % (2.0-10.0) 10/03/16 04:45 Eosinophils % 4.5 % (0.0-5.0) 10/03/16 04:45 Basophils % 0.5 % (0.0-2.0) 10/03/16 04:45 Neutrophils (Manual) 64 % (40-80) 10/04/16 04:36 Lymphocytes 17 % (20-50) L 10/04/16 04:36 Monocytes 8 % (2-10) 10/04/16 04:36 Eosinophils 5 % (0-5) 10/04/16 04:36 Platelet Estimate ADEQUATE (NORMAL) 10/04/16 04:36 Platelet Morphology NORMAL (NORMAL) 10/04/16 04:36 Polychromasia 1+ 09/22/16 04:49 Anisocytosis 1+ 10/04/16 04:36 RBC Morph Micro Appear ABNORMAL (NORMAL) 10/04/16 04:36 PT 10.3 SECONDS (9.5-11.5) 10/03/16 04:45 INR 0.99 (0.5-1.4) 10/03/16 04:45 PTT (Actin FS) 26.3 SECONDS (26.0-38.0) 10/03/16 04:45 Sodium 139 mEq/L (136-145) 10/04/16 04:36 Potassium 3.3 mEq/L (3.5-5.1) L 10/04/16 04:36 Chloride 109 mEq/L (98-107) H 10/04/16 04:36 Carbon Dioxide 26.6 mEq/L (21.0-31.0) 10/04/16 04:36 Anion Gap 6.7 (7.0-16.0) L 10/04/16 04:36 BUN 20 mg/dL (7-25) 10/04/16 04:36 Creatinine 0.6 mg/dL (0.6-1.2) 10/04/16 04:36 Est GFR ( Amer) > 60.0 ml/min (>90) 10/04/16 04:36 Est GFR (Non-Af Amer) > 60.0 ml/min 10/04/16 04:36 BUN/Creatinine Ratio 33.3 10/04/16 04:36 Glucose 261 mg/dL (70-105) H 10/04/16 04:36 POC Glucose 250 MG/DL (70 - 105) H 10/04/16 11:39 Hemoglobin A1c % 6.5 % (4.0-6.0) H 09/21/16 09:13 Whole Bld Lactic Acid 0.96 mmol/L (0.60-2.00) 09/21/16 22:05 Calcium 8.9 mg/dL (8.6-10.3) 10/04/16 04:36 Magnesium 1.8 mg/dL (1.9-2.7) L 10/04/16 04:36 Total Bilirubin 0.3 mg/dL (0.3-1.0) 10/04/16 04:36 Direct Bilirubin 0.07 mg/dL (0.0-0.2) 09/27/16 04:56 AST 27 U/L (13-39) 10/04/16 04:36 ALT 18 U/L (7-52) 10/04/16 04:36 Alkaline Phosphatase 82 U/L (34-104) 10/04/16 04:36 Ammonia 52 umol/L (16-53) 10/03/16 04:45 Troponin I 0.79 ng/mL (0.01-0.05) H* D 09/21/16 22:05 B-Natriuretic Peptide 64.0 pg/mL (5.0-100.0) 10/03/16 04:45 Total Protein 5.7 gm/dL (6.0-8.3) L 10/04/16 04:36 Albumin 2.4 gm/dL (3.7-5.3) L 10/04/16 04:36 Globulin 3.3 gm/dL 10/04/16 04:36 Albumin/Globulin Ratio 0.7 (1.0-1.8) L 10/04/16 04:36 Urine Source CATH 10/01/16 09:30 Urine Color YELLOW 10/01/16 09:30 Urine Clarity SL. CLOUDY (CLEAR) 10/01/16 09:30 Urine pH 7.5 10/01/16 09:30 Ur Specific [place] 1.020 (1.005-1.030) 10/01/16 09:30 Urine Protein 100 mg/dL (NEGATIVE) H 10/01/16 09:30 Urine Glucose (UA) NEGATIVE mg/dL (NEGATIVE) 10/01/16 09:30 Urine Ketones NEGATIVE mg/dL (NEGATIVE) 10/01/16 09:30 Urine Blood SMALL (NEGATIVE) H 10/01/16 09:30 Urine Nitrate NEGATIVE (NEGATIVE) 10/01/16 09:30 Urine Bilirubin NEGATIVE (NEGATIVE) 10/01/16 09:30 Urine Urobilinogen 0.2 E.U./dL (0.2 - 1.0) 10/01/16 09:30 Ur Leukocyte Esterase SMALL (NEGATIVE) H 10/01/16 09:30 Urine RBC 5-10 /hpf (0-5) H 10/01/16 09:30 Urine WBC 25-50 /hpf (0-5) H 10/01/16 09:30 Ur Epithelial Cells OCCASIONAL /lpf (FEW) 10/01/16 09:30 Urine Bacteria FEW /hpf (NONE SEEN) 10/01/16 09:30 Vancomycin Trough 20.4 ug/mL (10-20) H 09/23/16 16:20 Digoxin 2.3 ng/ml (0.8-2.0) H 09/29/16 07:55 Blood Type O POSITIVE 10/03/16 08:05 Antibody Screen NEGATIVE 10/03/16 08:05 - Physical Exam Vitals and I&O: Vital Signs Temp 98.2 F 10/04/16 12:00 Pulse 103 10/04/16 12:00 Resp 13 10/04/16 14:00 BP 110/53 10/04/16 14:00 Pulse Ox 100 10/04/16 14:00 Intake & Output 10/03/16 10/04/16 10/04/16 18:59 06:59 18:59 Intake Total 101.4 985.833 Output Total 1100 450 Balance -998.6 535.833 Intake: Intake, IV Amount 101.4 985.833 Amikacin 350 mg In 101.4 Dextrose 5% 100 ml @ 200 mls/hr IV Q24HR@0900 [facility] Rx#:[id number] D5-0.45NS 1,000 ml @ 50 985.833 mls/hr IV .Q20H [facility] Rx#: [id number] Oral 0 Output: Urine 1100 400 Other 50 Other: # Bowel Movements 0 Stool Characteristics Soft Brown Active Medications: Current Medications Acetaminophen (Tylenol 650mg/20.3ml Suspension) 650 mg GT Q4H PRN PRN Reason: MILD PAIN AND FEVER >101 Stop: 11/20/16 12:41 Last Admin: 09/30/16 14:40 Dose: 650 mg Acetaminophen/Hydrocodone Bitart ([place] 5mg/325mg) 1 tab GT Q4H PRN PRN Reason: Moderate-Severe Pain Stop: 11/20/16 12:41 Last Admin: 10/02/16 08:40 Dose: 1 tab Acetylcysteine (Mucomyst 20%) 3 ml HHN Q4HR [facility] Stop: 11/24/16 15:59 Last Admin: 10/04/16 11:07 Dose: 3 ml Albuterol Sulfate (Albuterol 2.5mg/3ml Neb Ud) 2.5 mg HHN Q4HRT [facility] Stop: 11/25/16 10:59 Last Admin: 10/04/16 11:07 Dose: 2.5 mg Ascorbic Acid (Vitamin C) 500 mg GT DAILY [facility] Stop: 11/21/16 08:59 Last Admin: 10/04/16 08:42 Dose: 500 mg Atorvastatin Calcium (Lipitor) 40 mg PO HS [facility] Stop: 11/20/16 20:59 Last Admin: 10/03/16 23:34 Dose: Not Given Chlorhexidine Gluconate (Peridex) 15 ml MM 0800,1999 [facility] Stop: 12/02/16 19:59 Last Admin: 10/03/16 20:04 Dose: 15 ml Dextrose (D50w) 50 ml IVP PRN PRN PRN Reason: blood sugar < 60 Stop: 11/25/16 21:35 Last Admin: 09/27/16 21:49 Dose: 50 ml Diltiazem HCl (Cardizem) 20 mg IVP Q4H PRN PRN Reason: HR Greater than 130 per min Stop: 11/20/16 12:45 Last Admin: 09/28/16 08:05 Dose: 20 mg Folic Acid (Folate) 1 mg GT DAILY [facility] Stop: 11/21/16 08:59 Last Admin: 10/04/16 08:48 Dose: 1 mg Guaifenesin (Robitussin) 200 mg GT Q4HR PRN PRN Reason: Cough or Congestion Stop: 11/20/16 12:41 Hydromorphone HCl (Dilaudid) 0.5 mg IVP Q4HR PRN PRN Reason: pain Stop: 11/26/16 19:54 Last Admin: 10/04/16 00:30 Dose: 0.5 mg Norepinephrine Bitartrate 4 mg (/ Dextrose) 254 mls @ 38.1 mls/hr IV TITR PRN; Protocol; 10 MCG/MIN PRN Reason: BP MAINTENANCE (PER PROTOCOL) Stop: 11/20/16 23:39 Last Admin: 09/28/16 12:18 Dose: 4 mcg/min, 15.24 mls/hr Dextrose (D5w) 1,000 mls @ 10 mls/hr IV .Q24H [facility] Stop: 11/30/16 08:24 Last Admin: 10/02/16 09:18 Dose: 10 mls/hr Amikacin Sulfate 350 mg/ (Dextrose) 101.4 mls @ 200 mls/hr IV Q24HR@0900 [facility] Stop: 11/30/16 14:59 Last Admin: 10/04/16 11:35 Dose: 100 mls/hr Insulin Aspart (Novolog) 0 units SUBQ ACHS [facility] PRN Reason: Protocol Stop: 11/20/16 16:29 Last Admin: 10/04/16 11:53 Dose: 2 units Ipratropium [place] (Atrovent Neb 0.5mg/2.5ml) 0.5 mg HHN Q4HRT [facility] Stop: 11/25/16 10:59 Last Admin: 10/04/16 11:07 Dose: 0.5 mg Lactobacillus Rhamnosus (Culturelle) 1 each PO DAILY [facility] Stop: 11/24/16 08:59 Last Admin: 10/04/16 08:46 Dose: 1 each Lactulose (Cephulac) 20 gm GT DAILY [facility] Stop: 11/27/16 08:59 Last Admin: 10/03/16 09:08 Dose: Not Given Loperamide HCl (Imodium) 2 mg GT Q4H PRN PRN Reason: DIARRHEA Stop: 11/20/16 15:12 Magnesium Hydroxide (Milk Of Magnesia) 30 ml GT DAILY PRN PRN Reason: Constipation Stop: 11/20/16 12:41 Metoclopramide HCl (Reglan) 5 mg IVP TID [facility] Stop: 11/29/16 13:59 Last Admin: 10/04/16 08:46 Dose: 5 mg Miscellaneous (Probiotic Screen) 1 ea PRN PRN PRN Reason: PROTOCOL Stop: 11/24/16 08:48 Miscellaneous (Clinical Monitoring) 1 ea PRN PRN PRN Reason: XARELTO Stop: 11/28/16 11:19 Miscellaneous (Amikacin Iv Per Pharmacy) 1 ea PRN PRN PRN Reason: PROTOCOL Stop: 11/30/16 13:40 Nystatin (Nystop) 100,000 units TP BID [facility] Stop: 11/21/16 08:59 Last Admin: 10/04/16 11:33 Dose: 100,000 units Ondansetron HCl (Zofran) 4 mg IV Q8H PRN PRN Reason: Nausea / Vomiting Stop: 11/20/16 12:45 Rivaroxaban (Xarelto) 10 mg GT DAILY [facility] Stop: 11/21/16 10:59 Last Admin: 10/04/16 08:45 Dose: 10 mg Vitamin A (Vitamin A & D) 5 gm TP DAILY [facility] Stop: 11/21/16 14:59 Last Admin: 10/04/16 11:34 Dose: 5 gm Zinc Sulfate (Zinc Sulfate) 220 mg GT DAILY [facility] Stop: 11/21/16 08:59 Last Admin: 10/04/16 08:44 Dose: 220 mg General: demented HEENT: NC/AT, PERRLA Neck: Supple, No JVD Lungs: congested, rales Cardiovascular: RRR, Normal S1, Normal S2 Abdomen: soft non-tender, globular, +GT, positive bowel sound Extremities: excoriation Neurological: no change, unable to follow command - Procedures Procedures: Procedures Procedure Code Date BLOOD TRANSFUSION SERVICE 24323 03/06/16 CHANGE GASTROSTOMY TUBE 84881 06/09/14 AGNIESZKA BONE 20 SQ CM/< 66122 01/28/15 DIAGNOSTIC COLONOSCOPY 13564 03/06/16 EGD BIOPSY SINGLE/MULTIPLE 06303 03/06/16 EXCISION OF DUODENUM, ENDO, DIAGN [id number] 03/06/16 EXCISION OF STOMACH, ENDO, DIAGN [id number] 03/06/16 IMMOBILIZ/WOUND ATTN NEC 93.59 01/28/15 INSERT INDWELLING CATH 57.94 10/18/05 INSERT TEMP BLADDER CATH 74896 10/18/05 INSPECTION OF LOWER INTESTINAL TRACT, ENDO [id number] 03/06/16 INSPECTION OF UPPER INTESTINAL TRACT, ENDO [id number] 10/27/15 LOC EXC BONE LESION NEC 77.69 01/28/15 PACKED CELL TRANSFUSION 99.04 10/20/14 REPLACE GASTROSTOMY TUBE 97.02 06/09/14 TRANSFUSE NONAUT RED BLOOD CELLS IN PERIPH VEIN, PERC [id number] 06/16/16 Internal Medicine Assmt/Plan - Assessment Assessment: sepsis shock sp levophed pmn acute on crf anemia leukocytosis hypoglycemia mr cp elevated ammonia rue edema, ephysema poor iv access ducub ulcer 4 sp colostomy - Plan Plan: vent weaning cont on iv abx, on amikacin and vanco will hold all routine insulin cont on levophed prn critical poor access, will order midline ddw rn see order seen by dr martínez will check us, ct noted Nutritional Asmnt/Malnutr-PDOC - Dietary Evaluation Malnutrition Findings (Please click <Entered> for more info): Nutritional Asmnt/Malnutrition Start: 09/22/16 12: 31 Text: Status: Complete Freq: Document 09/22/16 12:32 GSUN (Rec: 09/22/16 13:00 GSUN [id number]) Nutritional Asmnt/Malnutrition Patient General Information Nutritional Screening High Risk Screening Diagnosis Per ER: sepsis, UTI, HTN, possible PNA, elevated troponin Pertinent Medical Hx/Surgical Hx Per ER: HTN, DM, dyslipidemia, anemia, 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 RD consult for decubitus ulcer and trigger for BG >180. Discussed with RN regarding tube feeding regimens when tube feeding resumed. Unable to obtain new weight due to bedscale not properly calibrated. Current Diet Order/ Nutrition Support NPO Pertinent Medications Vitamin C, lipitor, D5, folate , novolog, novolin, cephulac, MOM, zofran, vancomycin, vitamin A and D, zinc sulfate Pertinent Labs 09/21: BUN 112H, creatinine 1. 6H, glucose 263H, A1c 6.5H, troponin 1.96H 09/22: Potassium 2.8L, BUN 74H (improving), creatinine 1.1 ( improved), glucose 278H POC glucose 58-303H Nutritional Hx/Data Height 1.45 m Height (Calculated Centimeters) 144.8 Current Weight (lbs) 43.998 kg Weight (Calculated Kilograms) 44.0 Weight (Calculated Grams) 78411.5 Weight Status Approriate GI Symptoms Food Allergies No Cultural/Ethnic/Restorationist Belief Unknown. 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 Problem Problem Altered nutrition related laboratory values related to Etiology DM aeb Signs/Symptoms: episodes of hypoglycemia and hyperglycemia, 58L and 303H 1. Problem Problem Increased protein and kcal needs related to Etiology hypermetabolic state aeb Signs/Symptoms: sepsis, possible PNA, mulitple ulcerations Intervention/Recommendation Comments 1. Recommend Diabetisource 50ml/hr x 24hrs, providing 1440kcal and 72g protein, for glycemic control and to better meet nutritional needs. 2. Recommend 1 packet Arginaid BID via g-tube for multiple ulcerations wound healing. 3. If episodes of hypoglycemia persists, consider without carbohydrate restriction with Fibersource HN at 50ml/hrs x 24hrs. Expected Outcomes/Goals Expected Outcomes/Goals 1. Pt to meet 100% of estimated nutritional needs on tube feeding + Arginaid with tolerance. Physician Parameters for PEM Serum Albumin (g/dl) 3.5 - 5.0 (Normal)
[2016-10-04] MEDS: Chlorhexidine Gluconate 0.12% 15mL Mouthwash MM SCH (17:24)
[2016-10-04] MEDS: Dextrose 5% 1,000 ML IV SCH (19:08)
[2016-10-04] MEDS: Atorvastatin Calcium 10 MG TAB PO SCH (20:42)
[2016-10-05] MEDS: Hydrocodone/APAP 5mg/325mg Tab GT PRN (01:19)
[2016-10-05] MEDS: Ipratropium Neb 0.5 mg/2.5 mL UD HHN SCH ×6 (02:58→22:41)
[2016-10-05] MEDS: Albuterol Nebulizer 2.5mg/3mL HHN SCH ×6 (02:59→22:41)
[2016-10-05] MEDS: INSULIN ASPART, RECOMBINANT 100 UNITS/ML SUBQ SCH ×4 (06:44→21:24)
[2016-10-05] MEDS: guaiFENesin 200 MG/10 ML UDC GT PRN (06:51)
[2016-10-05 07:43] LABS: MEAN CELL VOLUME 87.3 fl (81-100); MEAN CORPUSCULAR HEMOGLOBIN 29.6 pg (27.0-31.0); MEAN CORPUSCULAR HGB CONC 33.9 pg (28.0-36.0); MEAN PLATELET VOLUME 8.7 fl; PLATELET COUNT 167 Th/cmm (150-400); RED BLOOD COUNT 2.36 Mil/cmm (3.80-5.10); WHITE BLOOD COUNT 6.1 Th/cmm (4.8-10.8)
[2016-10-05 08:02] LABS: ALB/GLOB RATIO 0.7 (1.0-1.8); ALKALINE PHOSPHATASE 113 U/L (34-104); ANION GAP 6.6 (7.0-16.0); BILIRUBIN,TOTAL 0.4 mg/dL (0.3-1.0); BUN - UREA NITROGEN 21 mg/dL (7-25); CALCIUM SERUM 8.9 mg/dL (8.6-10.3); CARBON DIOXIDE 28.2 mEq/L (21.0-31.0); CHLORIDE 108 mEq/L (98-107); CREATININE - SERUM 0.6 mg/dL (0.6-1.2); GLUCOSE 330 mg/dL (70-105); POTASSIUM SERUM 3.8 mEq/L (3.5-5.1); SGOT 21 U/L (13-39); SGPT/ALT 17 U/L (7-52); SODIUM SERUM 139 mEq/L (136-145)
[2016-10-05] MEDS: Multivitamin w/ Minerals Tab GT SCH (08:22)
[2016-10-05] MEDS: Metoclopramide 5 mg/mL 2mL Vial IVP SCH ×3 (08:23→20:42)
[2016-10-05] MEDS: Lactulose 10 Gm/15 mL 30mL UDC GT SCH (08:24)
[2016-10-05] MEDS: Lactobacillus Rhamnosus 10 Billion CFU Capsule PO SCH (08:25)
[2016-10-05 08:47] LABS: HEMATOCRIT 20.6 % (35.0-45.0)
[2016-10-05 09:43] LABS: ANISOCYTOSIS 1+; BAND NEUTROPHILE 3 % (0-10); EOSINOPHIL 2 % (0-5); NEUTROPHILS 74 % (40-80); PLATELET ESTIMATE ADEQUATE (NORMAL); PLATELET MORPHOLOGY NORMAL (NORMAL); TOTAL CELLS COUNTED 100
[2016-10-05] MEDS: Amikacin 500 mg in D5W 100mL (Q24HR) IV SCH (10:45)
--- NOTE | 2016-10-05 11:24 | General Progress Note ---
Subjective - Review of Systems Service Date: 10/05/16 Events since last encounter: minimal colostomy output on nasal cannula 2 L Hb 7.0 Gm recommend a unit of PRBC Subjective: VS stable urine output adequate extubated, on air O2 sat ok Hb 7.8 gm, might need PRBC dressings dry Objective - Results Result Diagrams: 10/05/16 06:10 10/05/16 06:10 Recent Labs: Laboratory Last Values WBC 6.1 Th/cmm (4.8-10.8) 10/05/16 06:10 RBC 2.36 Mil/cmm (3.80-5.10) L 10/05/16 06:10 Hgb 7.0 gm/dL (11.7-15.5) L* 10/05/16 06:10 Hct 20.6 % (35.0-45.0) L* D 10/05/16 06:10 MCV 87.3 fl (81-100) 10/05/16 06:10 MCH 29.6 pg (27.0-31.0) 10/05/16 06:10 MCHC Differential 33.9 pg (28.0-36.0) 10/05/16 06:10 RDW 17.0 % (11.5-20.0) 10/05/16 06:10 Plt Count 167 Th/cmm (150-400) 10/05/16 06:10 MPV 8.7 fl 10/05/16 06:10 Neutrophils % 52.1 % (40.0-80.0) 10/03/16 04:45 Band Neutrophils % 3 % (0-10) 10/05/16 06:10 Lymphocytes % 34.7 % (20.0-50.0) 10/03/16 04:45 Monocytes % 8.2 % (2.0-10.0) 10/03/16 04:45 Eosinophils % 4.5 % (0.0-5.0) 10/03/16 04:45 Basophils % 0.5 % (0.0-2.0) 10/03/16 04:45 Neutrophils (Manual) 74 % (40-80) 10/05/16 06:10 Lymphocytes 16 % (20-50) L 10/05/16 06:10 Monocytes 5 % (2-10) 10/05/16 06:10 Eosinophils 2 % (0-5) 10/05/16 06:10 Platelet Estimate ADEQUATE (NORMAL) 10/05/16 06:10 Platelet Morphology NORMAL (NORMAL) 10/05/16 06:10 Polychromasia 1+ 09/22/16 04:49 Anisocytosis 1+ 10/05/16 06:10 RBC Morph Micro Appear ABNORMAL (NORMAL) 10/05/16 06:10 PT 10.3 SECONDS (9.5-11.5) 10/03/16 04:45 INR 0.99 (0.5-1.4) 10/03/16 04:45 PTT (Actin FS) 26.3 SECONDS (26.0-38.0) 10/03/16 04:45 Sodium 139 mEq/L (136-145) 10/05/16 06:10 Potassium 3.8 mEq/L (3.5-5.1) 10/05/16 06:10 Chloride 108 mEq/L (98-107) H 10/05/16 06:10 Carbon Dioxide 28.2 mEq/L (21.0-31.0) 10/05/16 06:10 Anion Gap 6.6 (7.0-16.0) L 10/05/16 06:10 BUN 21 mg/dL (7-25) 10/05/16 06:10 Creatinine 0.6 mg/dL (0.6-1.2) 10/05/16 06:10 Est GFR ( Amer) > 60.0 ml/min (>90) 10/05/16 06:10 Est GFR (Non-Af Amer) > 60.0 ml/min 10/05/16 06:10 BUN/Creatinine Ratio 35.0 10/05/16 06:10 Glucose 330 mg/dL (70-105) H 10/05/16 06:10 POC Glucose 279 MG/DL (70 - 105) H 10/05/16 05:56 Hemoglobin A1c % 6.5 % (4.0-6.0) H 09/21/16 09:13 Whole Bld Lactic Acid 0.96 mmol/L (0.60-2.00) 09/21/16 22:05 Calcium 8.9 mg/dL (8.6-10.3) 10/05/16 06:10 Magnesium 1.8 mg/dL (1.9-2.7) L 10/04/16 04:36 Total Bilirubin 0.4 mg/dL (0.3-1.0) 10/05/16 06:10 Direct Bilirubin 0.07 mg/dL (0.0-0.2) 09/27/16 04:56 AST 21 U/L (13-39) 10/05/16 06:10 ALT 17 U/L (7-52) 10/05/16 06:10 Alkaline Phosphatase 113 U/L (34-104) H 10/05/16 06:10 Ammonia 52 umol/L (16-53) 10/03/16 04:45 Troponin I 0.79 ng/mL (0.01-0.05) H* D 09/21/16 22:05 B-Natriuretic Peptide 64.0 pg/mL (5.0-100.0) 10/03/16 04:45 Total Protein 5.9 gm/dL (6.0-8.3) L 10/05/16 06:10 Albumin 2.4 gm/dL (3.7-5.3) L 10/05/16 06:10 Globulin 3.5 gm/dL 10/05/16 06:10 Albumin/Globulin Ratio 0.7 (1.0-1.8) L 10/05/16 06:10 Urine Source CATH 10/01/16 09:30 Urine Color YELLOW 10/01/16 09:30 Urine Clarity SL. CLOUDY (CLEAR) 10/01/16 09:30 Urine pH 7.5 10/01/16 09:30 Ur Specific [place] 1.020 (1.005-1.030) 10/01/16 09:30 Urine Protein 100 mg/dL (NEGATIVE) H 10/01/16 09:30 Urine Glucose (UA) NEGATIVE mg/dL (NEGATIVE) 10/01/16 09:30 Urine Ketones NEGATIVE mg/dL (NEGATIVE) 10/01/16 09:30 Urine Blood SMALL (NEGATIVE) H 10/01/16 09:30 Urine Nitrate NEGATIVE (NEGATIVE) 10/01/16 09:30 Urine Bilirubin NEGATIVE (NEGATIVE) 10/01/16 09:30 Urine Urobilinogen 0.2 E.U./dL (0.2 - 1.0) 10/01/16 09:30 Ur Leukocyte Esterase SMALL (NEGATIVE) H 10/01/16 09:30 Urine RBC 5-10 /hpf (0-5) H 10/01/16 09:30 Urine WBC 25-50 /hpf (0-5) H 10/01/16 09:30 Ur Epithelial Cells OCCASIONAL /lpf (FEW) 10/01/16 09:30 Urine Bacteria FEW /hpf (NONE SEEN) 10/01/16 09:30 Vancomycin Trough 20.4 ug/mL (10-20) H 09/23/16 16:20 Digoxin 2.3 ng/ml (0.8-2.0) H 09/29/16 07:55 Blood Type O POSITIVE 10/03/16 08:05 Antibody Screen NEGATIVE 10/03/16 08:05 - Physical Exam Vitals and I&O: Vital Signs Temp 100.2 F 10/05/16 08:00 Pulse 104 10/05/16 11:03 Resp 15 10/05/16 11:03 BP 124/60 10/05/16 08:00 Pulse Ox 100 10/05/16 11:03 Intake & Output 10/04/16 10/05/16 10/05/16 18:59 06:59 18:59 Intake Total 701.4 1278.333 Output Total 800 750 Balance -98.6 528.333 Intake: Intake, IV Amount 101.4 578.333 Amikacin 350 mg In 101.4 Dextrose 5% 100 ml @ 200 mls/hr IV Q24HR@0900 [facility] Rx#:[id number] Dextrose 5% 1,000 ml @ 10 578.333 mls/hr IV .Q24H [facility] Rx#: [id number] Oral 0 Tube Feeding 600 600 Other 100 Output: Drainage 0 wound vac 0 Urine 800 750 Stool 0 Other 0 Other: # Bowel Movements 0 Active Medications: Current Medications Acetaminophen (Tylenol 650mg/20.3ml Suspension) 650 mg GT Q4H PRN PRN Reason: MILD PAIN AND FEVER >101 Stop: 11/20/16 12:41 Last Admin: 10/05/16 05:59 Dose: 650 mg Acetaminophen/Hydrocodone Bitart ([place] 5mg/325mg) 1 tab GT Q4H PRN PRN Reason: Moderate-Severe Pain Stop: 11/20/16 12:41 Last Admin: 10/05/16 01:19 Dose: 1 tab Acetylcysteine (Mucomyst 20%) 3 ml HHN Q4HR [facility] Stop: 11/24/16 15:59 Last Admin: 10/05/16 11:04 Dose: 3 ml Albuterol Sulfate (Albuterol 2.5mg/3ml Neb Ud) 2.5 mg HHN Q4HRT [facility] Stop: 11/25/16 10:59 Last Admin: 10/05/16 11:04 Dose: 2.5 mg Ascorbic Acid (Vitamin C) 500 mg GT DAILY [facility] Stop: 11/21/16 08:59 Last Admin: 10/05/16 08:20 Dose: 500 mg Atorvastatin Calcium (Lipitor) 40 mg PO HS [facility] Stop: 11/20/16 20:59 Last Admin: 10/04/16 20:42 Dose: 10 mg Dextrose (D50w) 50 ml IVP PRN PRN PRN Reason: blood sugar < 60 Stop: 11/25/16 21:35 Last Admin: 09/27/16 21:49 Dose: 50 ml Diltiazem HCl (Cardizem) 20 mg IVP Q4H PRN PRN Reason: HR Greater than 130 per min Stop: 11/20/16 12:45 Last Admin: 09/28/16 08:05 Dose: 20 mg Folic Acid (Folate) 1 mg GT DAILY [facility] Stop: 11/21/16 08:59 Last Admin: 10/05/16 08:25 Dose: 1 mg Guaifenesin (Robitussin) 200 mg GT Q4HR PRN PRN Reason: Cough or Congestion Stop: 11/20/16 12:41 Last Admin: 10/05/16 06:51 Dose: 200 mg Hydromorphone HCl (Dilaudid) 0.5 mg IVP Q4HR PRN PRN Reason: pain Stop: 11/26/16 19:54 Last Admin: 10/04/16 00:30 Dose: 0.5 mg Norepinephrine Bitartrate 4 mg (/ Dextrose) 254 mls @ 38.1 mls/hr IV TITR PRN; Protocol; 10 MCG/MIN PRN Reason: BP MAINTENANCE (PER PROTOCOL) Stop: 11/20/16 23:39 Last Admin: 09/28/16 12:18 Dose: 4 mcg/min, 15.24 mls/hr Dextrose (D5w) 1,000 mls @ 10 mls/hr IV .Q24H [facility] Stop: 11/30/16 08:24 Last Admin: 10/04/16 19:08 Dose: 10 mls/hr Amikacin Sulfate 350 mg/ (Dextrose) 101.4 mls @ 200 mls/hr IV Q24HR@0900 [facility] Stop: 11/30/16 14:59 Last Admin: 10/05/16 10:45 Dose: 100 mls/hr Insulin Aspart (Novolog) 0 units SUBQ ACHS [facility] PRN Reason: Protocol Stop: 11/20/16 16:29 Last Admin: 10/05/16 06:44 Dose: 4 units Ipratropium [place] (Atrovent Neb 0.5mg/2.5ml) 0.5 mg HHN Q4HRT [facility] Stop: 11/25/16 10:59 Last Admin: 10/05/16 11:04 Dose: 0.5 mg Lactobacillus Rhamnosus (Culturelle) 1 each PO DAILY [facility] Stop: 11/24/16 08:59 Last Admin: 10/05/16 08:25 Dose: 1 each Lactulose (Cephulac) 20 gm GT DAILY [facility] Stop: 11/27/16 08:59 Last Admin: 10/05/16 08:24 Dose: 20 gm Loperamide HCl (Imodium) 2 mg GT Q4H PRN PRN Reason: DIARRHEA Stop: 11/20/16 15:12 Magnesium Hydroxide (Milk Of Magnesia) 30 ml GT DAILY PRN PRN Reason: Constipation Stop: 11/20/16 12:41 Metoclopramide HCl (Reglan) 5 mg IVP TID [facility] Stop: 11/29/16 13:59 Last Admin: 10/05/16 08:23 Dose: 5 mg Miscellaneous (Probiotic Screen) 1 ea PRN PRN PRN Reason: PROTOCOL Stop: 11/24/16 08:48 Miscellaneous (Clinical Monitoring) 1 ea PRN PRN PRN Reason: XARELTO Stop: 11/28/16 11:19 Miscellaneous (Amikacin Iv Per Pharmacy) 1 ea PRN PRN PRN Reason: PROTOCOL Stop: 11/30/16 13:40 Nystatin (Nystop) 100,000 units TP BID [facility] Stop: 11/21/16 08:59 Last Admin: 10/04/16 18:37 Dose: 100,000 units Ondansetron HCl (Zofran) 4 mg IV Q8H PRN PRN Reason: Nausea / Vomiting Stop: 11/20/16 12:45 Rivaroxaban (Xarelto) 10 mg GT DAILY [facility] Stop: 11/21/16 10:59 Last Admin: 10/05/16 08:22 Dose: 10 mg Vitamin A (Vitamin A & D) 5 gm TP DAILY [facility] Stop: 11/21/16 14:59 Last Admin: 10/04/16 11:34 Dose: 5 gm Zinc Sulfate (Zinc Sulfate) 220 mg GT DAILY [facility] Stop: 11/21/16 08:59 Last Admin: 10/05/16 08:21 Dose: 220 mg - Procedures Procedures: Procedures Procedure Code Date BLOOD TRANSFUSION SERVICE 42049 03/06/16 CHANGE GASTROSTOMY TUBE 20430 06/09/14 AGNIESZKA BONE 20 SQ CM/< 25628 01/28/15 DIAGNOSTIC COLONOSCOPY 93141 03/06/16 EGD BIOPSY SINGLE/MULTIPLE 66443 03/06/16 EXCISION OF DUODENUM, ENDO, DIAGN [id number] 03/06/16 EXCISION OF STOMACH, ENDO, DIAGN [id number] 03/06/16 IMMOBILIZ/WOUND ATTN NEC 93.59 01/28/15 INSERT INDWELLING CATH 57.94 10/18/05 INSERT TEMP BLADDER CATH 30936 10/18/05 INSPECTION OF LOWER INTESTINAL TRACT, ENDO [id number] 03/06/16 INSPECTION OF UPPER INTESTINAL TRACT, ENDO [id number] 10/27/15 LOC EXC BONE LESION NEC 77.69 01/28/15 PACKED CELL TRANSFUSION 99.04 10/20/14 REPLACE GASTROSTOMY TUBE 97.02 06/09/14 TRANSFUSE NONAUT RED BLOOD CELLS IN PERIPH VEIN, PERC 35210Z7 06/16/16 Assessment/Plan - Problem List Patient Problems: All Active Problems HYPOTENSION WITH TACHYCARDIA AND CONGEST (Acute) Anemia (Acute 03/06/16) D64.9 Dyspnea (Acute) R06.00 Fever, unspecified (Acute) R50.9 Hyperglycemia (Acute) R73.9 Hyperosmolality and/or hypernatremia (Acute) E87.0 Mental retardation (Acute) F79 Other abnormal clinical finding (Acute) R68.89 Pneumonia (Acute) J18.9 Staphylococcal sepsis (Acute) Uncontrolled diabetes mellitus (Acute) E11.65 Urinary tract infection (Acute) Nutritional Asmnt/Malnutr-PDOC - Dietary Evaluation Malnutrition Findings (Please click <Entered> for more info): Nutritional Asmnt/Malnutrition Start: 09/22/16 12: 31 Text: Status: Complete Freq: Document 09/22/16 12:32 RITOCHAO (Rec: 09/22/16 13:00 SANTINO [email or web address]) Nutritional Asmnt/Malnutrition Patient General Information Nutritional Screening High Risk Screening Diagnosis Per ER: sepsis, UTI, HTN, possible PNA, elevated troponin Pertinent Medical Hx/Surgical Hx Per ER: HTN, DM, dyslipidemia, anemia, 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 RD consult for decubitus ulcer and trigger for BG >180. Discussed with RN regarding tube feeding regimens when tube feeding resumed. Unable to obtain new weight due to bedscale not properly calibrated. Current Diet Order/ Nutrition Support NPO Pertinent Medications Vitamin C, lipitor, D5, folate , novolog, novolin, cephulac, MOM, zofran, vancomycin, vitamin A and D, zinc sulfate Pertinent Labs 09/21: BUN 112H, creatinine 1. 6H, glucose 263H, A1c 6.5H, troponin 1.96H 09/22: Potassium 2.8L, BUN 74H (improving), creatinine 1.1 ( improved), glucose 278H POC glucose 58-303H Nutritional Hx/Data Height 1.45 m Height (Calculated Centimeters) 144.8 Current Weight (lbs) 43.998 kg Weight (Calculated Kilograms) 44.0 Weight (Calculated Grams) 29106.5 Weight Status Approriate GI Symptoms Food Allergies No Cultural/Ethnic/Evangelical Belief Unknown. 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 Problem Problem Altered nutrition related laboratory values related to Etiology DM aeb Signs/Symptoms: episodes of hypoglycemia and hyperglycemia, 58L and 303H 1. Problem Problem Increased protein and kcal needs related to Etiology hypermetabolic state aeb Signs/Symptoms: sepsis, possible PNA, mulitple ulcerations Intervention/Recommendation Comments 1. Recommend Diabetisource 50ml/hr x 24hrs, providing 1440kcal and 72g protein, for glycemic control and to better meet nutritional needs. 2. Recommend 1 packet Arginaid BID via g-tube for multiple ulcerations wound healing. 3. If episodes of hypoglycemia persists, consider without carbohydrate restriction with Fibersource HN at 50ml/hrs x 24hrs. Expected Outcomes/Goals Expected Outcomes/Goals 1. Pt to meet 100% of estimated nutritional needs on tube feeding + Arginaid with tolerance. Physician Parameters for PEM Serum Albumin (g/dl) 3.5 - 5.0 (Normal)
[2016-10-05] MEDS: NYSTATIN 100000 UNITS/GM POWD TP SCH (12:51)
[2016-10-05] MEDS: Vitamin A/Vitamin D 5 gm Packet TP SCH (12:51)
--- NOTE | 2016-10-05 13:53 | Internal Medicine Prog Note ---
Internal Medicine Subjective - Subjective Patient seen and examined:: with staff, chart reviewed Patient is:: awake, non-verbal Patient Complaints of:: congestion Per staff patient is:: no adverse event, confused Internal Medicine Objective - Results Result Diagrams: 10/05/16 06:10 10/05/16 06:10 Recent Labs: Laboratory Last Values WBC 6.1 Th/cmm (4.8-10.8) 10/05/16 06:10 RBC 2.36 Mil/cmm (3.80-5.10) L 10/05/16 06:10 Hgb 7.0 gm/dL (11.7-15.5) L* 10/05/16 06:10 Hct 20.6 % (35.0-45.0) L* D 10/05/16 06:10 MCV 87.3 fl (81-100) 10/05/16 06:10 MCH 29.6 pg (27.0-31.0) 10/05/16 06:10 MCHC Differential 33.9 pg (28.0-36.0) 10/05/16 06:10 RDW 17.0 % (11.5-20.0) 10/05/16 06:10 Plt Count 167 Th/cmm (150-400) 10/05/16 06:10 MPV 8.7 fl 10/05/16 06:10 Neutrophils % 52.1 % (40.0-80.0) 10/03/16 04:45 Band Neutrophils % 3 % (0-10) 10/05/16 06:10 Lymphocytes % 34.7 % (20.0-50.0) 10/03/16 04:45 Monocytes % 8.2 % (2.0-10.0) 10/03/16 04:45 Eosinophils % 4.5 % (0.0-5.0) 10/03/16 04:45 Basophils % 0.5 % (0.0-2.0) 10/03/16 04:45 Neutrophils (Manual) 74 % (40-80) 10/05/16 06:10 Lymphocytes 16 % (20-50) L 10/05/16 06:10 Monocytes 5 % (2-10) 10/05/16 06:10 Eosinophils 2 % (0-5) 10/05/16 06:10 Platelet Estimate ADEQUATE (NORMAL) 10/05/16 06:10 Platelet Morphology NORMAL (NORMAL) 10/05/16 06:10 Polychromasia 1+ 09/22/16 04:49 Anisocytosis 1+ 10/05/16 06:10 RBC Morph Micro Appear ABNORMAL (NORMAL) 10/05/16 06:10 PT 10.3 SECONDS (9.5-11.5) 10/03/16 04:45 INR 0.99 (0.5-1.4) 10/03/16 04:45 PTT (Actin FS) 26.3 SECONDS (26.0-38.0) 10/03/16 04:45 Sodium 139 mEq/L (136-145) 10/05/16 06:10 Potassium 3.8 mEq/L (3.5-5.1) 10/05/16 06:10 Chloride 108 mEq/L (98-107) H 10/05/16 06:10 Carbon Dioxide 28.2 mEq/L (21.0-31.0) 10/05/16 06:10 Anion Gap 6.6 (7.0-16.0) L 10/05/16 06:10 BUN 21 mg/dL (7-25) 10/05/16 06:10 Creatinine 0.6 mg/dL (0.6-1.2) 10/05/16 06:10 Est GFR ( Amer) > 60.0 ml/min (>90) 10/05/16 06:10 Est GFR (Non-Af Amer) > 60.0 ml/min 10/05/16 06:10 BUN/Creatinine Ratio 35.0 10/05/16 06:10 Glucose 330 mg/dL (70-105) H 10/05/16 06:10 POC Glucose 276 MG/DL (70 - 105) H 10/05/16 11:46 Hemoglobin A1c % 6.5 % (4.0-6.0) H 09/21/16 09:13 Whole Bld Lactic Acid 0.96 mmol/L (0.60-2.00) 09/21/16 22:05 Calcium 8.9 mg/dL (8.6-10.3) 10/05/16 06:10 Magnesium 1.8 mg/dL (1.9-2.7) L 10/04/16 04:36 Total Bilirubin 0.4 mg/dL (0.3-1.0) 10/05/16 06:10 Direct Bilirubin 0.07 mg/dL (0.0-0.2) 09/27/16 04:56 AST 21 U/L (13-39) 10/05/16 06:10 ALT 17 U/L (7-52) 10/05/16 06:10 Alkaline Phosphatase 113 U/L (34-104) H 10/05/16 06:10 Ammonia 52 umol/L (16-53) 10/03/16 04:45 Troponin I 0.79 ng/mL (0.01-0.05) H* D 09/21/16 22:05 B-Natriuretic Peptide 64.0 pg/mL (5.0-100.0) 10/03/16 04:45 Total Protein 5.9 gm/dL (6.0-8.3) L 10/05/16 06:10 Albumin 2.4 gm/dL (3.7-5.3) L 10/05/16 06:10 Globulin 3.5 gm/dL 10/05/16 06:10 Albumin/Globulin Ratio 0.7 (1.0-1.8) L 10/05/16 06:10 Urine Source CATH 10/01/16 09:30 Urine Color YELLOW 10/01/16 09:30 Urine Clarity SL. CLOUDY (CLEAR) 10/01/16 09:30 Urine pH 7.5 10/01/16 09:30 Ur Specific [place] 1.020 (1.005-1.030) 10/01/16 09:30 Urine Protein 100 mg/dL (NEGATIVE) H 10/01/16 09:30 Urine Glucose (UA) NEGATIVE mg/dL (NEGATIVE) 10/01/16 09:30 Urine Ketones NEGATIVE mg/dL (NEGATIVE) 10/01/16 09:30 Urine Blood SMALL (NEGATIVE) H 10/01/16 09:30 Urine Nitrate NEGATIVE (NEGATIVE) 10/01/16 09:30 Urine Bilirubin NEGATIVE (NEGATIVE) 10/01/16 09:30 Urine Urobilinogen 0.2 E.U./dL (0.2 - 1.0) 10/01/16 09:30 Ur Leukocyte Esterase SMALL (NEGATIVE) H 10/01/16 09:30 Urine RBC 5-10 /hpf (0-5) H 10/01/16 09:30 Urine WBC 25-50 /hpf (0-5) H 10/01/16 09:30 Ur Epithelial Cells OCCASIONAL /lpf (FEW) 10/01/16 09:30 Urine Bacteria FEW /hpf (NONE SEEN) 10/01/16 09:30 Vancomycin Trough 20.4 ug/mL (10-20) H 09/23/16 16:20 Digoxin 2.3 ng/ml (0.8-2.0) H 09/29/16 07:55 Blood Type O POSITIVE 10/03/16 08:05 Antibody Screen NEGATIVE 10/03/16 08:05 - Physical Exam Vitals and I&O: Vital Signs Temp 98 F 10/05/16 12:00 Pulse 102 10/05/16 12:00 Resp 24 10/05/16 12:00 BP 122/55 10/05/16 12:00 Pulse Ox 100 10/05/16 12:00 Intake & Output 10/04/16 10/05/16 10/05/16 18:59 06:59 18:59 Intake Total 701.4 1278.333 Output Total 800 750 Balance -98.6 528.333 Intake: Intake, IV Amount 101.4 578.333 Amikacin 350 mg In 101.4 Dextrose 5% 100 ml @ 200 mls/hr IV Q24HR@0900 [facility] Rx#:[id number] Dextrose 5% 1,000 ml @ 10 578.333 mls/hr IV .Q24H [facility] Rx#: [id number] Oral 0 Tube Feeding 600 600 Other 100 Output: Drainage 0 wound vac 0 Urine 800 750 Stool 0 Other 0 Other: # Bowel Movements 0 Active Medications: Current Medications Acetaminophen (Tylenol 650mg/20.3ml Suspension) 650 mg GT Q4H PRN PRN Reason: MILD PAIN AND FEVER >101 Stop: 11/20/16 12:41 Last Admin: 10/05/16 05:59 Dose: 650 mg Acetaminophen/Hydrocodone Bitart ([place] 5mg/325mg) 1 tab GT Q4H PRN PRN Reason: Moderate-Severe Pain Stop: 11/20/16 12:41 Last Admin: 10/05/16 01:19 Dose: 1 tab Acetylcysteine (Mucomyst 20%) 3 ml HHN Q4HR [facility] Stop: 11/24/16 15:59 Last Admin: 10/05/16 11:04 Dose: 3 ml Albuterol Sulfate (Albuterol 2.5mg/3ml Neb Ud) 2.5 mg HHN Q4HRT [facility] Stop: 11/25/16 10:59 Last Admin: 10/05/16 11:04 Dose: 2.5 mg Ascorbic Acid (Vitamin C) 500 mg GT DAILY [facility] Stop: 11/21/16 08:59 Last Admin: 10/05/16 08:20 Dose: 500 mg Atorvastatin Calcium (Lipitor) 40 mg PO HS [facility] Stop: 11/20/16 20:59 Last Admin: 10/04/16 20:42 Dose: 10 mg Dextrose (D50w) 50 ml IVP PRN PRN PRN Reason: blood sugar < 60 Stop: 11/25/16 21:35 Last Admin: 09/27/16 21:49 Dose: 50 ml Diltiazem HCl (Cardizem) 20 mg IVP Q4H PRN PRN Reason: HR Greater than 130 per min Stop: 11/20/16 12:45 Last Admin: 09/28/16 08:05 Dose: 20 mg Folic Acid (Folate) 1 mg GT DAILY [facility] Stop: 11/21/16 08:59 Last Admin: 10/05/16 08:25 Dose: 1 mg Guaifenesin (Robitussin) 200 mg GT Q4HR PRN PRN Reason: Cough or Congestion Stop: 11/20/16 12:41 Last Admin: 10/05/16 06:51 Dose: 200 mg Hydromorphone HCl (Dilaudid) 0.5 mg IVP Q4HR PRN PRN Reason: pain Stop: 11/26/16 19:54 Last Admin: 10/04/16 00:30 Dose: 0.5 mg Norepinephrine Bitartrate 4 mg (/ Dextrose) 254 mls @ 38.1 mls/hr IV TITR PRN; Protocol; 10 MCG/MIN PRN Reason: BP MAINTENANCE (PER PROTOCOL) Stop: 11/20/16 23:39 Last Admin: 09/28/16 12:18 Dose: 4 mcg/min, 15.24 mls/hr Dextrose (D5w) 1,000 mls @ 10 mls/hr IV .Q24H [facility] Stop: 11/30/16 08:24 Last Admin: 10/04/16 19:08 Dose: 10 mls/hr Amikacin Sulfate 350 mg/ (Dextrose) 101.4 mls @ 200 mls/hr IV Q24HR@0900 [facility] Stop: 11/30/16 14:59 Last Admin: 10/05/16 10:45 Dose: 100 mls/hr Fluconazole (Diflucan) 200 mg in 100 mls @ 100 mls/hr IV Q24HR [facility] Stop: 12/04/16 13:59 Insulin Aspart (Novolog) 0 units SUBQ ACHS [facility] PRN Reason: Protocol Stop: 11/20/16 16:29 Last Admin: 10/05/16 11:49 Dose: 4 units Ipratropium [place] (Atrovent Neb 0.5mg/2.5ml) 0.5 mg HHN Q4HRT [facility] Stop: 11/25/16 10:59 Last Admin: 10/05/16 11:04 Dose: 0.5 mg Lactobacillus Rhamnosus (Culturelle) 1 each PO DAILY [facility] Stop: 11/24/16 08:59 Last Admin: 10/05/16 08:25 Dose: 1 each Lactulose (Cephulac) 20 gm GT DAILY [facility] Stop: 11/27/16 08:59 Last Admin: 10/05/16 08:24 Dose: 20 gm Loperamide HCl (Imodium) 2 mg GT Q4H PRN PRN Reason: DIARRHEA Stop: 11/20/16 15:12 Magnesium Hydroxide (Milk Of Magnesia) 30 ml GT DAILY PRN PRN Reason: Constipation Stop: 11/20/16 12:41 Metoclopramide HCl (Reglan) 5 mg IVP TID [facility] Stop: 11/29/16 13:59 Last Admin: 10/05/16 08:23 Dose: 5 mg Miscellaneous (Probiotic Screen) 1 ea MC PRN PRN PRN Reason: PROTOCOL Stop: 11/24/16 08:48 Miscellaneous (Clinical Monitoring) 1 ea MC PRN PRN PRN Reason: XARELTO Stop: 11/28/16 11:19 Miscellaneous (Amikacin Iv Per Pharmacy) 1 ea MC PRN PRN PRN Reason: PROTOCOL Stop: 11/30/16 13:40 Nystatin (Nystop) 100,000 units TP BID [facility] Stop: 11/21/16 08:59 Last Admin: 10/05/16 12:51 Dose: 100,000 units Ondansetron HCl (Zofran) 4 mg IV Q8H PRN PRN Reason: Nausea / Vomiting Stop: 11/20/16 12:45 Rivaroxaban (Xarelto) 10 mg GT DAILY [facility] Stop: 11/21/16 10:59 Last Admin: 10/05/16 08:22 Dose: 10 mg Vitamin A (Vitamin A & D) 5 gm TP DAILY [facility] Stop: 11/21/16 14:59 Last Admin: 10/05/16 12:51 Dose: 5 gm Zinc Sulfate (Zinc Sulfate) 220 mg GT DAILY [facility] Stop: 11/21/16 08:59 Last Admin: 10/05/16 08:21 Dose: 220 mg General: demented HEENT: NC/AT, PERRLA Neck: Supple, No JVD Lungs: congested Cardiovascular: RRR, Normal S1, Normal S2 Abdomen: soft non-tender, globular, +GT, other (colostomy) Extremities: excoriation, contracture Neurological: no change - Procedures Procedures: Procedures Procedure Code Date BLOOD TRANSFUSION SERVICE 45200 03/06/16 CHANGE GASTROSTOMY TUBE 04429 06/09/14 AGNIESZKA BONE 20 SQ CM/< 72843 01/28/15 DIAGNOSTIC COLONOSCOPY 11314 03/06/16 EGD BIOPSY SINGLE/MULTIPLE 66716 03/06/16 EXCISION OF DUODENUM, ENDO, DIAGN [id number] 03/06/16 EXCISION OF STOMACH, ENDO, DIAGN [id number] 03/06/16 IMMOBILIZ/WOUND ATTN NEC 93.59 01/28/15 INSERT INDWELLING CATH 57.94 10/18/05 INSERT TEMP BLADDER CATH 43743 10/18/05 INSPECTION OF LOWER INTESTINAL TRACT, ENDO [id number] 03/06/16 INSPECTION OF UPPER INTESTINAL TRACT, ENDO [id number] 10/27/15 LOC EXC BONE LESION NEC 77.69 01/28/15 PACKED CELL TRANSFUSION 99.04 10/20/14 REPLACE GASTROSTOMY TUBE 97.02 06/09/14 TRANSFUSE NONAUT RED BLOOD CELLS IN PERIPH VEIN, PERC [id number] 06/16/16 Internal Medicine Assmt/Plan - Assessment Assessment: sepsis shock sp levophed pmn acute on crf anemia leukocytosis hypoglycemia mr cp elevated ammonia rue edema, ephysema poor iv access ducub ulcer 4 sp colostomy - Plan Plan: vent weaning cont on iv abx, on amikacin and vanco will hold all routine insulin cont on levophed prn critical poor access, will order midline ddw rn see order seen by dr martínez will check us, ct noted Nutritional Asmnt/Malnutr-PDOC - Dietary Evaluation Malnutrition Findings (Please click <Entered> for more info): Nutritional Asmnt/Malnutrition Start: 09/22/16 12: 31 Text: Status: Complete Freq: Document 09/22/16 12:32 GSUN (Rec: 09/22/16 13:00 GSUN [id number]) Nutritional Asmnt/Malnutrition Patient General Information Nutritional Screening High Risk Screening Diagnosis Per ER: sepsis, UTI, HTN, possible PNA, elevated troponin Pertinent Medical Hx/Surgical Hx Per ER: HTN, DM, dyslipidemia, anemia, 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 RD consult for decubitus ulcer and trigger for BG >180. Discussed with RN regarding tube feeding regimens when tube feeding resumed. Unable to obtain new weight due to bedscale not properly calibrated. Current Diet Order/ Nutrition Support NPO Pertinent Medications Vitamin C, lipitor, D5, folate , novolog, novolin, cephulac, MOM, zofran, vancomycin, vitamin A and D, zinc sulfate Pertinent Labs 09/21: BUN 112H, creatinine 1. 6H, glucose 263H, A1c 6.5H, troponin 1.96H 09/22: Potassium 2.8L, BUN 74H (improving), creatinine 1.1 ( improved), glucose 278H POC glucose 58-303H Nutritional Hx/Data Height 1.45 m Height (Calculated Centimeters) 144.8 Current Weight (lbs) 43.998 kg Weight (Calculated Kilograms) 44.0 Weight (Calculated Grams) 78421.5 Weight Status Approriate GI Symptoms Food Allergies No Cultural/Ethnic/Islam Belief Unknown. Usual diet at home [place]: glucerna 1.2 at 60ml/hr x 20hrs with 200ml flush Q4hrs Skin Integrity/Comment: tape transferrer: ulceration sacrum, right tow, right foot, left foot Estimated Nutritional Goals BEE in Kcals: Using Current wt Calories/Kcals/Kg 30-35kcal/kg Kcals Calculated 1320-1544kcal Protein: Using Current wt Protein g/k.5-1.7g/kg Protein Calculated 66-75g Fluid: ml 1320-1544ml (1ml/kcal) Nutritional Problem 2. Problem Problem Altered nutrition related laboratory values related to Etiology DM aeb Signs/Symptoms: episodes of hypoglycemia and hyperglycemia, 58L and 303H 1. Problem Problem Increased protein and kcal needs related to Etiology hypermetabolic state aeb Signs/Symptoms: sepsis, possible PNA, mulitple ulcerations Intervention/Recommendation Comments 1. Recommend Diabetisource 50ml/hr x 24hrs, providing 1440kcal and 72g protein, for glycemic control and to better meet nutritional needs. 2. Recommend 1 packet Arginaid BID via g-tube for multiple ulcerations wound healing. 3. If episodes of hypoglycemia persists, consider without carbohydrate restriction with Fibersource HN at 50ml/hrs x 24hrs. Expected Outcomes/Goals Expected Outcomes/Goals 1. Pt to meet 100% of estimated nutritional needs on tube feeding + Arginaid with tolerance. Physician Parameters for PEM Serum Albumin (g/dl) 3.5 - 5.0 (Normal)
[2016-10-05] MEDS: Fluconazole 200mg/100mL 200 MG/100 ML BAG IV SCH (15:30)
[2016-10-05] MEDS: HYDROmorphone 1 mg/mL 1mL Syr IVP PRN (20:15)
[2016-10-05] MEDS: Atorvastatin Calcium 10 MG TAB PO SCH (20:42)
[2016-10-06] MEDS: Ipratropium Neb 0.5 mg/2.5 mL UD HHN SCH ×6 (02:10→22:41)
[2016-10-06] MEDS: Albuterol Nebulizer 2.5mg/3mL HHN SCH ×6 (02:10→22:41)
[2016-10-06] MEDS: HYDROmorphone 1 mg/mL 1mL Syr IVP PRN ×4 (02:22→19:57)
[2016-10-06 06:30] LABS: MEAN CELL VOLUME 87.1 fl (81-100); MEAN CORPUSCULAR HEMOGLOBIN 29.1 pg (27.0-31.0); MEAN CORPUSCULAR HGB CONC 33.4 pg (28.0-36.0); MEAN PLATELET VOLUME 7.6 fl; PLATELET COUNT 143 Th/cmm (150-400); RED BLOOD COUNT 2.26 Mil/cmm (3.80-5.10); RED CELL DISTRIBUTION WIDTH 16.1 % (11.5-20.0); WHITE BLOOD COUNT 5.3 Th/cmm (4.8-10.8)
[2016-10-06] MEDS: INSULIN ASPART, RECOMBINANT 100 UNITS/ML SUBQ SCH ×4 (06:32→20:49)
[2016-10-06 06:33] LABS: ANION GAP 8.9 (7.0-16.0); BUN - UREA NITROGEN 25 mg/dL (7-25); BUN/CREATININE RATIO 41.7; CALCIUM SERUM 9.2 mg/dL (8.6-10.3); CARBON DIOXIDE 28.9 mEq/L (21.0-31.0); CHLORIDE 106 mEq/L (98-107); CREATININE - SERUM 0.6 mg/dL (0.6-1.2); GLUCOSE 318 mg/dL (70-105); MAGNESIUM 2.1 mg/dL (1.9-2.7); POTASSIUM SERUM 3.8 mEq/L (3.5-5.1); SODIUM SERUM 140 mEq/L (136-145)
[2016-10-06 07:31] LABS: HEMATOCRIT 19.7 % (35.0-45.0); HEMOGLOBIN 6.6 gm/dL (11.7-15.5)
[2016-10-06] MEDS: Lactulose 10 Gm/15 mL 30mL UDC GT SCH (08:47)
[2016-10-06] MEDS: Lactobacillus Rhamnosus 10 Billion CFU Capsule PO SCH (08:47)
[2016-10-06] MEDS: Multivitamin w/ Minerals Tab GT SCH (08:47)
[2016-10-06] MEDS: Metoclopramide 5 mg/mL 2mL Vial IVP SCH ×3 (08:47→20:48)
[2016-10-06] MEDS: Vitamin A/Vitamin D 5 gm Packet TP SCH ×2 (08:49→08:54)
[2016-10-06] MEDS: NYSTATIN 100000 UNITS/GM POWD TP SCH ×2 (08:52→09:00)
[2016-10-06] MEDS: Amikacin 500 mg in D5W 100mL (Q24HR) IV SCH (08:53)
--- NOTE | 2016-10-06 09:08 | Diagnostic Imaging Report ---
Portable chest x-ray HISTORY: Shortness of breath Compared with prior exam of October 04, 2016, there appears to be increased density in the left lower hemithorax with partial obscuration of the left hemidiaphragm. Differences may be related to radiographic technique. However, consolidation and/or atelectasis cannot be excluded. Follow-up radiograph recommended. IMPRESSION: 1. Increased density within the left lower hemithorax compared with the prior exam. Differences may be related to radiographic technique. However, changes associated with a pleural effusion, consolidation and/or atelectasis cannot be excluded. A follow-up radiograph recommended.
[2016-10-06] MEDS: guaiFENesin 200 MG/10 ML UDC GT PRN ×2 (09:14→17:13)
[2016-10-06 09:36] LABS: BAND NEUTROPHILE 6 % (0-10); BASOPHIL 1 % (0-3); EOSINOPHIL 6 % (0-5); NEUTROPHILS 63 % (40-80); TOTAL CELLS COUNTED 100
[2016-10-06 09:37] LABS: ANISOCYTOSIS 1+; PLATELET ESTIMATE DECREASED PLATELETS (NORMAL); PLATELET MORPHOLOGY NORMAL (NORMAL)
--- NOTE | 2016-10-06 11:41 | General Progress Note ---
Subjective - Review of Systems Service Date: 10/06/16 Events since last encounter: Hb 6.6 gm to have PRBC colostomy 50 cc on GT feedings incision - clean Subjective: VS stable urine output adequate extubated, on air O2 sat ok Hb 7.8 gm, might need PRBC dressings dry Objective - Results Result Diagrams: 10/06/16 04:50 10/06/16 04:50 Recent Labs: Laboratory Last Values WBC 5.3 Th/cmm (4.8-10.8) 10/06/16 04:50 RBC 2.26 Mil/cmm (3.80-5.10) L 10/06/16 04:50 Hgb 6.6 gm/dL (11.7-15.5) L* 10/06/16 04:50 Hct 19.7 % (35.0-45.0) L* 10/06/16 04:50 MCV 87.1 fl (81-100) 10/06/16 04:50 MCH 29.1 pg (27.0-31.0) 10/06/16 04:50 MCHC Differential 33.4 pg (28.0-36.0) 10/06/16 04:50 RDW 16.1 % (11.5-20.0) 10/06/16 04:50 Plt Count 143 Th/cmm (150-400) L 10/06/16 04:50 MPV 7.6 fl 10/06/16 04:50 Neutrophils % 52.1 % (40.0-80.0) 10/03/16 04:45 Band Neutrophils % 6 % (0-10) 10/06/16 04:50 Lymphocytes % 34.7 % (20.0-50.0) 10/03/16 04:45 Monocytes % 8.2 % (2.0-10.0) 10/03/16 04:45 Eosinophils % 4.5 % (0.0-5.0) 10/03/16 04:45 Basophils % 0.5 % (0.0-2.0) 10/03/16 04:45 Neutrophils (Manual) 63 % (40-80) 10/06/16 04:50 Lymphocytes 15 % (20-50) L 10/06/16 04:50 Monocytes 9 % (2-10) 10/06/16 04:50 Eosinophils 6 % (0-5) H 10/06/16 04:50 Basophils 1 % (0-3) 10/06/16 04:50 Platelet Estimate DECREASED PLATELETS (NORMAL) 10/06/16 04:50 Platelet Morphology NORMAL (NORMAL) 10/06/16 04:50 Polychromasia 1+ 09/22/16 04:49 Anisocytosis 1+ 10/06/16 04:50 RBC Morph Micro Appear ABNORMAL (NORMAL) 10/06/16 04:50 PT 10.3 SECONDS (9.5-11.5) 10/03/16 04:45 INR 0.99 (0.5-1.4) 10/03/16 04:45 PTT (Actin FS) 26.3 SECONDS (26.0-38.0) 10/03/16 04:45 Sodium 140 mEq/L (136-145) 10/06/16 04:50 Potassium 3.8 mEq/L (3.5-5.1) 10/06/16 04:50 Chloride 106 mEq/L (98-107) 10/06/16 04:50 Carbon Dioxide 28.9 mEq/L (21.0-31.0) 10/06/16 04:50 Anion Gap 8.9 (7.0-16.0) 10/06/16 04:50 BUN 25 mg/dL (7-25) 10/06/16 04:50 Creatinine 0.6 mg/dL (0.6-1.2) 10/06/16 04:50 Est GFR ( Amer) > 60.0 ml/min (>90) 10/06/16 04:50 Est GFR (Non-Af Amer) > 60.0 ml/min 10/06/16 04:50 BUN/Creatinine Ratio 41.7 10/06/16 04:50 Glucose 318 mg/dL (70-105) H 10/06/16 04:50 POC Glucose 273 MG/DL (70 - 105) H 10/06/16 06:27 Hemoglobin A1c % 6.5 % (4.0-6.0) H 09/21/16 09:13 Whole Bld Lactic Acid 0.96 mmol/L (0.60-2.00) 09/21/16 22:05 Calcium 9.2 mg/dL (8.6-10.3) 10/06/16 04:50 Magnesium 2.1 mg/dL (1.9-2.7) 10/06/16 04:50 Total Bilirubin 0.4 mg/dL (0.3-1.0) 10/05/16 06:10 Direct Bilirubin 0.07 mg/dL (0.0-0.2) 09/27/16 04:56 AST 21 U/L (13-39) 10/05/16 06:10 ALT 17 U/L (7-52) 10/05/16 06:10 Alkaline Phosphatase 113 U/L (34-104) H 10/05/16 06:10 Ammonia 52 umol/L (16-53) 10/03/16 04:45 Troponin I 0.79 ng/mL (0.01-0.05) H* D 09/21/16 22:05 B-Natriuretic Peptide 64.0 pg/mL (5.0-100.0) 10/03/16 04:45 Total Protein 5.9 gm/dL (6.0-8.3) L 10/05/16 06:10 Albumin 2.4 gm/dL (3.7-5.3) L 10/05/16 06:10 Globulin 3.5 gm/dL 10/05/16 06:10 Albumin/Globulin Ratio 0.7 (1.0-1.8) L 10/05/16 06:10 Urine Source CATH 10/01/16 09:30 Urine Color YELLOW 10/01/16 09:30 Urine Clarity SL. CLOUDY (CLEAR) 10/01/16 09:30 Urine pH 7.5 10/01/16 09:30 Ur Specific [place] 1.020 (1.005-1.030) 10/01/16 09:30 Urine Protein 100 mg/dL (NEGATIVE) H 10/01/16 09:30 Urine Glucose (UA) NEGATIVE mg/dL (NEGATIVE) 10/01/16 09:30 Urine Ketones NEGATIVE mg/dL (NEGATIVE) 10/01/16 09:30 Urine Blood SMALL (NEGATIVE) H 10/01/16 09:30 Urine Nitrate NEGATIVE (NEGATIVE) 10/01/16 09:30 Urine Bilirubin NEGATIVE (NEGATIVE) 10/01/16 09:30 Urine Urobilinogen 0.2 E.U./dL (0.2 - 1.0) 10/01/16 09:30 Ur Leukocyte Esterase SMALL (NEGATIVE) H 10/01/16 09:30 Urine RBC 5-10 /hpf (0-5) H 10/01/16 09:30 Urine WBC 25-50 /hpf (0-5) H 10/01/16 09:30 Ur Epithelial Cells OCCASIONAL /lpf (FEW) 10/01/16 09:30 Urine Bacteria FEW /hpf (NONE SEEN) 10/01/16 09:30 Amikacin Peak 6.0 ug/mL (20.0-30.0) L 10/03/16 09:30 Amikacin Trough 6.8 ug/mL (1.0-8.0) 10/03/16 08:05 Vancomycin Trough 20.4 ug/mL (10-20) H 09/23/16 16:20 Digoxin 2.3 ng/ml (0.8-2.0) H 09/29/16 07:55 Blood Type O POSITIVE 10/06/16 09:45 Antibody Screen NEGATIVE 10/06/16 09:45 Crossmatch See Detail 10/06/16 09:45 - Physical Exam Vitals and I&O: Vital Signs Temp 98.6 F 10/06/16 06:00 Pulse 98 10/06/16 08:27 Resp 21 10/06/16 08:27 BP 127/70 10/06/16 07:00 Pulse Ox 100 10/06/16 08:27 Intake & Output 10/05/16 10/06/16 10/06/16 18:59 06:59 18:59 Intake Total 801.4 750 Output Total 850 800 Balance -48.6 -50 Intake: Intake, IV Amount 101.4 Amikacin 350 mg In 101.4 Dextrose 5% 100 ml @ 200 mls/hr IV Q24HR@0900 [facility] Rx#:[id number] Oral 0 Tube Feeding 700 600 Other 150 Output: Drainage 0 wound vac 0 Urine 850 800 Stool 0 Active Medications: Current Medications Acetaminophen (Tylenol 650mg/20.3ml Suspension) 650 mg GT Q4H PRN PRN Reason: MILD PAIN AND FEVER >101 Stop: 11/20/16 12:41 Last Admin: 10/05/16 05:59 Dose: 650 mg Acetylcysteine (Mucomyst 20%) 3 ml HHN Q4HR [facility] Stop: 11/24/16 15:59 Last Admin: 10/06/16 11:37 Dose: 3 ml Albuterol Sulfate (Albuterol 2.5mg/3ml Neb Ud) 2.5 mg HHN Q4HRT [facility] Stop: 11/25/16 10:59 Last Admin: 10/06/16 11:36 Dose: 2.5 mg Ascorbic Acid (Vitamin C) 500 mg GT DAILY [facility] Stop: 11/21/16 08:59 Last Admin: 10/06/16 08:47 Dose: 500 mg Atorvastatin Calcium (Lipitor) 40 mg PO HS [facility] Stop: 11/20/16 20:59 Last Admin: 10/05/16 20:42 Dose: 40 mg Dextrose (D50w) 50 ml IVP PRN PRN PRN Reason: blood sugar < 60 Stop: 11/25/16 21:35 Last Admin: 09/27/16 21:49 Dose: 50 ml Diltiazem HCl (Cardizem) 20 mg IVP Q4H PRN PRN Reason: HR Greater than 130 per min Stop: 11/20/16 12:45 Last Admin: 09/28/16 08:05 Dose: 20 mg Folic Acid (Folate) 1 mg GT DAILY [facility] Stop: 11/21/16 08:59 Last Admin: 10/06/16 08:47 Dose: 1 mg Guaifenesin (Robitussin) 200 mg GT Q4HR PRN PRN Reason: Cough or Congestion Stop: 11/20/16 12:41 Last Admin: 10/06/16 09:14 Dose: 200 mg Hydromorphone HCl (Dilaudid) 0.5 mg IVP Q4HR PRN PRN Reason: pain Stop: 11/26/16 19:54 Last Admin: 10/06/16 09:14 Dose: 0.5 mg Norepinephrine Bitartrate 4 mg (/ Dextrose) 254 mls @ 38.1 mls/hr IV TITR PRN; Protocol; 10 MCG/MIN PRN Reason: BP MAINTENANCE (PER PROTOCOL) Stop: 11/20/16 23:39 Last Admin: 09/28/16 12:18 Dose: 4 mcg/min, 15.24 mls/hr Dextrose (D5w) 1,000 mls @ 10 mls/hr IV .Q24H [facility] Stop: 11/30/16 08:24 Last Admin: 10/04/16 19:08 Dose: 10 mls/hr Amikacin Sulfate 350 mg/ (Dextrose) 101.4 mls @ 200 mls/hr IV Q24HR@0900 [facility] Stop: 11/30/16 14:59 Last Admin: 10/06/16 08:53 Dose: 100 mls/hr Fluconazole (Diflucan) 200 mg in 100 mls @ 100 mls/hr IV Q24HR [facility] Stop: 12/04/16 13:59 Last Admin: 10/05/16 15:30 Dose: 100 mls/hr Insulin Aspart (Novolog) 0 units SUBQ ACHS [facility] PRN Reason: Protocol Stop: 11/20/16 16:29 Last Admin: 10/06/16 06:32 Dose: 4 units Ipratropium [place] (Atrovent Neb 0.5mg/2.5ml) 0.5 mg HHN Q4HRT [facility] Stop: 11/25/16 10:59 Last Admin: 10/06/16 11:36 Dose: 0.5 mg Lactobacillus Rhamnosus (Culturelle) 1 each PO DAILY [facility] Stop: 11/24/16 08:59 Last Admin: 10/06/16 08:47 Dose: 1 each Lactulose (Cephulac) 20 gm GT DAILY [facility] Stop: 11/27/16 08:59 Last Admin: 10/06/16 08:47 Dose: 20 gm Loperamide HCl (Imodium) 2 mg GT Q4H PRN PRN Reason: DIARRHEA Stop: 11/20/16 15:12 Magnesium Hydroxide (Milk Of Magnesia) 30 ml GT DAILY PRN PRN Reason: Constipation Stop: 11/20/16 12:41 Metoclopramide HCl (Reglan) 5 mg IVP TID [facility] Stop: 11/29/16 13:59 Last Admin: 10/06/16 08:47 Dose: 5 mg Miscellaneous (Probiotic Screen) 1 ea MC PRN PRN PRN Reason: PROTOCOL Stop: 11/24/16 08:48 Miscellaneous (Clinical Monitoring) 1 ea MC PRN PRN PRN Reason: XARELTO Stop: 11/28/16 11:19 Miscellaneous (Amikacin Iv Per Pharmacy) 1 ea PRN PRN PRN Reason: PROTOCOL Stop: 11/30/16 13:40 Nystatin (Nystop) 100,000 units TP BID [facility] Stop: 11/21/16 08:59 Last Admin: 10/06/16 08:52 Dose: 100,000 units Ondansetron HCl (Zofran) 4 mg IV Q8H PRN PRN Reason: Nausea / Vomiting Stop: 11/20/16 12:45 Rivaroxaban (Xarelto) 10 mg GT DAILY [facility] Stop: 11/21/16 10:59 Last Admin: 10/06/16 08:48 Dose: 10 mg Vitamin A (Vitamin A & D) 5 gm TP DAILY [facility] Stop: 11/21/16 14:59 Last Admin: 10/06/16 08:54 Dose: 5 gm Zinc Sulfate (Zinc Sulfate) 220 mg GT DAILY [facility] Stop: 11/21/16 08:59 Last Admin: 10/06/16 09:10 Dose: 220 mg - Procedures Procedures: Procedures Procedure Code Date BLOOD TRANSFUSION SERVICE 68122 03/06/16 CHANGE GASTROSTOMY TUBE 43960 06/09/14 AGNIESZKA BONE 20 SQ CM/< 90838 01/28/15 DIAGNOSTIC COLONOSCOPY 22940 03/06/16 EGD BIOPSY SINGLE/MULTIPLE 32415 03/06/16 EXCISION OF DUODENUM, ENDO, DIAGN [id number] 03/06/16 EXCISION OF STOMACH, ENDO, DIAGN [id number] 03/06/16 IMMOBILIZ/WOUND ATTN NEC 93.59 01/28/15 INSERT INDWELLING CATH 57.94 10/18/05 INSERT TEMP BLADDER CATH 29224 10/18/05 INSPECTION OF LOWER INTESTINAL TRACT, ENDO [id number] 03/06/16 INSPECTION OF UPPER INTESTINAL TRACT, ENDO [id number] 10/27/15 LOC EXC BONE LESION NEC 77.69 01/28/15 PACKED CELL TRANSFUSION 99.04 10/20/14 REPLACE GASTROSTOMY TUBE 97.02 06/09/14 TRANSFUSE NONAUT RED BLOOD CELLS IN PERIPH VEIN, PERC 08060V2 06/16/16 Assessment/Plan - Problem List Patient Problems: All Active Problems HYPOTENSION WITH TACHYCARDIA AND CONGEST (Acute) Anemia (Acute 03/06/16) D64.9 Dyspnea (Acute) R06.00 Fever, unspecified (Acute) R50.9 Hyperglycemia (Acute) R73.9 Hyperosmolality and/or hypernatremia (Acute) E87.0 Mental retardation (Acute) F79 Other abnormal clinical finding (Acute) R68.89 Pneumonia (Acute) J18.9 Staphylococcal sepsis (Acute) Uncontrolled diabetes mellitus (Acute) E11.65 Urinary tract infection (Acute) Nutritional Asmnt/Malnutr-PDOC - Dietary Evaluation Malnutrition Findings (Please click <Entered> for more info): Nutritional Asmnt/Malnutrition Start: 09/22/16 12: 31 Text: Status: Complete Freq: Document 09/22/16 12:32 GSUN (Rec: 09/22/16 13:00 [email or web address] [email or web address]) Nutritional Asmnt/Malnutrition Patient General Information Nutritional Screening High Risk Screening Diagnosis Per ER: sepsis, UTI, HTN, possible PNA, elevated troponin Pertinent Medical Hx/Surgical Hx Per ER: HTN, DM, dyslipidemia, anemia, 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 RD consult for decubitus ulcer and trigger for BG >180. Discussed with RN regarding tube feeding regimens when tube feeding resumed. Unable to obtain new weight due to bedscale not properly calibrated. Current Diet Order/ Nutrition Support NPO Pertinent Medications Vitamin C, lipitor, D5, folate , novolog, novolin, cephulac, MOM, zofran, vancomycin, vitamin A and D, zinc sulfate Pertinent Labs 09/21: BUN 112H, creatinine 1. 6H, glucose 263H, A1c 6.5H, troponin 1.96H 09/22: Potassium 2.8L, BUN 74H (improving), creatinine 1.1 ( improved), glucose 278H POC glucose 58-303H Nutritional Hx/Data Height 1.45 m Height (Calculated Centimeters) 144.8 Current Weight (lbs) 43.998 kg Weight (Calculated Kilograms) 44.0 Weight (Calculated Grams) 38149.5 Weight Status Approriate GI Symptoms Food Allergies No Cultural/Ethnic/Confucianism Belief Unknown. Usual diet at home [place]: glucerna 1.2 at 60ml/hr x 20hrs with 200ml flush Q4hrs Skin Integrity/Comment: digital strategist: ulceration sacrum, right tow, right foot, left foot Estimated Nutritional Goals BEE in Kcals: Using Current wt Calories/Kcals/Kg 30-35kcal/kg Kcals Calculated 1320-1544kcal Protein: Using Current wt Protein g/k.5-1.7g/kg Protein Calculated 66-75g Fluid: ml 1320-1544ml (1ml/kcal) Nutritional Problem 2. Problem Problem Altered nutrition related laboratory values related to Etiology DM aeb Signs/Symptoms: episodes of hypoglycemia and hyperglycemia, 58L and 303H 1. Problem Problem Increased protein and kcal needs related to Etiology hypermetabolic state aeb Signs/Symptoms: sepsis, possible PNA, mulitple ulcerations Intervention/Recommendation Comments 1. Recommend Diabetisource 50ml/hr x 24hrs, providing 1440kcal and 72g protein, for glycemic control and to better meet nutritional needs. 2. Recommend 1 packet Arginaid BID via g-tube for multiple ulcerations wound healing. 3. If episodes of hypoglycemia persists, consider without carbohydrate restriction with Fibersource HN at 50ml/hrs x 24hrs. Expected Outcomes/Goals Expected Outcomes/Goals 1. Pt to meet 100% of estimated nutritional needs on tube feeding + Arginaid with tolerance. Physician Parameters for PEM Serum Albumin (g/dl) 3.5 - 5.0 (Normal)
--- NOTE | 2016-10-06 12:18 | Internal Medicine Prog Note ---
Internal Medicine Subjective - Subjective Service Date: 10/06/16 Patient seen and examined:: with staff Patient is:: awake Per staff patient is:: no adverse event Internal Medicine Objective - Results Result Diagrams: 10/06/16 04:50 10/06/16 04:50 Recent Labs: Laboratory Last Values WBC 5.3 Th/cmm (4.8-10.8) 10/06/16 04:50 RBC 2.26 Mil/cmm (3.80-5.10) L 10/06/16 04:50 Hgb 6.6 gm/dL (11.7-15.5) L* 10/06/16 04:50 Hct 19.7 % (35.0-45.0) L* 10/06/16 04:50 MCV 87.1 fl (81-100) 10/06/16 04:50 MCH 29.1 pg (27.0-31.0) 10/06/16 04:50 MCHC Differential 33.4 pg (28.0-36.0) 10/06/16 04:50 RDW 16.1 % (11.5-20.0) 10/06/16 04:50 Plt Count 143 Th/cmm (150-400) L 10/06/16 04:50 MPV 7.6 fl 10/06/16 04:50 Neutrophils % 52.1 % (40.0-80.0) 10/03/16 04:45 Band Neutrophils % 6 % (0-10) 10/06/16 04:50 Lymphocytes % 34.7 % (20.0-50.0) 10/03/16 04:45 Monocytes % 8.2 % (2.0-10.0) 10/03/16 04:45 Eosinophils % 4.5 % (0.0-5.0) 10/03/16 04:45 Basophils % 0.5 % (0.0-2.0) 10/03/16 04:45 Neutrophils (Manual) 63 % (40-80) 10/06/16 04:50 Lymphocytes 15 % (20-50) L 10/06/16 04:50 Monocytes 9 % (2-10) 10/06/16 04:50 Eosinophils 6 % (0-5) H 10/06/16 04:50 Basophils 1 % (0-3) 10/06/16 04:50 Platelet Estimate DECREASED PLATELETS (NORMAL) 10/06/16 04:50 Platelet Morphology NORMAL (NORMAL) 10/06/16 04:50 Polychromasia 1+ 09/22/16 04:49 Anisocytosis 1+ 10/06/16 04:50 RBC Morph Micro Appear ABNORMAL (NORMAL) 10/06/16 04:50 PT 10.3 SECONDS (9.5-11.5) 10/03/16 04:45 INR 0.99 (0.5-1.4) 10/03/16 04:45 PTT (Actin FS) 26.3 SECONDS (26.0-38.0) 10/03/16 04:45 Sodium 140 mEq/L (136-145) 10/06/16 04:50 Potassium 3.8 mEq/L (3.5-5.1) 10/06/16 04:50 Chloride 106 mEq/L (98-107) 10/06/16 04:50 Carbon Dioxide 28.9 mEq/L (21.0-31.0) 10/06/16 04:50 Anion Gap 8.9 (7.0-16.0) 10/06/16 04:50 BUN 25 mg/dL (7-25) 10/06/16 04:50 Creatinine 0.6 mg/dL (0.6-1.2) 10/06/16 04:50 Est GFR ( Amer) > 60.0 ml/min (>90) 10/06/16 04:50 Est GFR (Non-Af Amer) > 60.0 ml/min 10/06/16 04:50 BUN/Creatinine Ratio 41.7 10/06/16 04:50 Glucose 318 mg/dL (70-105) H 10/06/16 04:50 POC Glucose 273 MG/DL (70 - 105) H 10/06/16 06:27 Hemoglobin A1c % 6.5 % (4.0-6.0) H 09/21/16 09:13 Whole Bld Lactic Acid 0.96 mmol/L (0.60-2.00) 09/21/16 22:05 Calcium 9.2 mg/dL (8.6-10.3) 10/06/16 04:50 Magnesium 2.1 mg/dL (1.9-2.7) 10/06/16 04:50 Total Bilirubin 0.4 mg/dL (0.3-1.0) 10/05/16 06:10 Direct Bilirubin 0.07 mg/dL (0.0-0.2) 09/27/16 04:56 AST 21 U/L (13-39) 10/05/16 06:10 ALT 17 U/L (7-52) 10/05/16 06:10 Alkaline Phosphatase 113 U/L (34-104) H 10/05/16 06:10 Ammonia 52 umol/L (16-53) 10/03/16 04:45 Troponin I 0.79 ng/mL (0.01-0.05) H* D 09/21/16 22:05 B-Natriuretic Peptide 64.0 pg/mL (5.0-100.0) 10/03/16 04:45 Total Protein 5.9 gm/dL (6.0-8.3) L 10/05/16 06:10 Albumin 2.4 gm/dL (3.7-5.3) L 10/05/16 06:10 Globulin 3.5 gm/dL 10/05/16 06:10 Albumin/Globulin Ratio 0.7 (1.0-1.8) L 10/05/16 06:10 Urine Source CATH 10/01/16 09:30 Urine Color YELLOW 10/01/16 09:30 Urine Clarity SL. CLOUDY (CLEAR) 10/01/16 09:30 Urine pH 7.5 10/01/16 09:30 Ur Specific [place] 1.020 (1.005-1.030) 10/01/16 09:30 Urine Protein 100 mg/dL (NEGATIVE) H 10/01/16 09:30 Urine Glucose (UA) NEGATIVE mg/dL (NEGATIVE) 10/01/16 09:30 Urine Ketones NEGATIVE mg/dL (NEGATIVE) 10/01/16 09:30 Urine Blood SMALL (NEGATIVE) H 10/01/16 09:30 Urine Nitrate NEGATIVE (NEGATIVE) 10/01/16 09:30 Urine Bilirubin NEGATIVE (NEGATIVE) 10/01/16 09:30 Urine Urobilinogen 0.2 E.U./dL (0.2 - 1.0) 10/01/16 09:30 Ur Leukocyte Esterase SMALL (NEGATIVE) H 10/01/16 09:30 Urine RBC 5-10 /hpf (0-5) H 10/01/16 09:30 Urine WBC 25-50 /hpf (0-5) H 10/01/16 09:30 Ur Epithelial Cells OCCASIONAL /lpf (FEW) 10/01/16 09:30 Urine Bacteria FEW /hpf (NONE SEEN) 10/01/16 09:30 Amikacin Peak 6.0 ug/mL (20.0-30.0) L 10/03/16 09:30 Amikacin Trough 6.8 ug/mL (1.0-8.0) 10/03/16 08:05 Vancomycin Trough 20.4 ug/mL (10-20) H 09/23/16 16:20 Digoxin 2.3 ng/ml (0.8-2.0) H 09/29/16 07:55 Blood Type O POSITIVE 10/06/16 09:45 Antibody Screen NEGATIVE 10/06/16 09:45 Crossmatch See Detail 10/06/16 09:45 - Physical Exam Vitals and I&O: Vital Signs Temp 98.3 F 10/06/16 08:00 Pulse 102 10/06/16 11:47 Resp 17 10/06/16 11:47 BP 148/72 10/06/16 08:00 Pulse Ox 100 10/06/16 11:47 Intake & Output 10/05/16 10/06/16 10/06/16 18:59 06:59 18:59 Intake Total 801.4 750 Output Total 850 800 Balance -48.6 -50 Intake: Intake, IV Amount 101.4 Amikacin 350 mg In 101.4 Dextrose 5% 100 ml @ 200 mls/hr IV Q24HR@0900 [facility] Rx#:[id number] Oral 0 Tube Feeding 700 600 Other 150 Output: Drainage 0 wound vac 0 Urine 850 800 Stool 0 Active Medications: Current Medications Acetaminophen (Tylenol 650mg/20.3ml Suspension) 650 mg GT Q4H PRN PRN Reason: MILD PAIN AND FEVER >101 Stop: 11/20/16 12:41 Last Admin: 10/05/16 05:59 Dose: 650 mg Acetylcysteine (Mucomyst 20%) 3 ml HHN Q4HR [facility] Stop: 11/24/16 15:59 Last Admin: 10/06/16 11:37 Dose: 3 ml Albuterol Sulfate (Albuterol 2.5mg/3ml Neb Ud) 2.5 mg HHN Q4HRT [facility] Stop: 11/25/16 10:59 Last Admin: 10/06/16 11:36 Dose: 2.5 mg Ascorbic Acid (Vitamin C) 500 mg GT DAILY [facility] Stop: 11/21/16 08:59 Last Admin: 10/06/16 08:47 Dose: 500 mg Atorvastatin Calcium (Lipitor) 40 mg PO HS [facility] Stop: 11/20/16 20:59 Last Admin: 10/05/16 20:42 Dose: 40 mg Dextrose (D50w) 50 ml IVP PRN PRN PRN Reason: blood sugar < 60 Stop: 11/25/16 21:35 Last Admin: 09/27/16 21:49 Dose: 50 ml Diltiazem HCl (Cardizem) 20 mg IVP Q4H PRN PRN Reason: HR Greater than 130 per min Stop: 11/20/16 12:45 Last Admin: 09/28/16 08:05 Dose: 20 mg Folic Acid (Folate) 1 mg GT DAILY [facility] Stop: 11/21/16 08:59 Last Admin: 10/06/16 08:47 Dose: 1 mg Guaifenesin (Robitussin) 200 mg GT Q4HR PRN PRN Reason: Cough or Congestion Stop: 11/20/16 12:41 Last Admin: 10/06/16 09:14 Dose: 200 mg Hydromorphone HCl (Dilaudid) 0.5 mg IVP Q4HR PRN PRN Reason: pain Stop: 11/26/16 19:54 Last Admin: 10/06/16 09:14 Dose: 0.5 mg Norepinephrine Bitartrate 4 mg (/ Dextrose) 254 mls @ 38.1 mls/hr IV TITR PRN; Protocol; 10 MCG/MIN PRN Reason: BP MAINTENANCE (PER PROTOCOL) Stop: 11/20/16 23:39 Last Admin: 09/28/16 12:18 Dose: 4 mcg/min, 15.24 mls/hr Dextrose (D5w) 1,000 mls @ 10 mls/hr IV .Q24H [facility] Stop: 11/30/16 08:24 Last Admin: 10/04/16 19:08 Dose: 10 mls/hr Amikacin Sulfate 350 mg/ (Dextrose) 101.4 mls @ 200 mls/hr IV Q24HR@0900 [facility] Stop: 11/30/16 14:59 Last Admin: 10/06/16 08:53 Dose: 100 mls/hr Fluconazole (Diflucan) 200 mg in 100 mls @ 100 mls/hr IV Q24HR [facility] Stop: 12/04/16 13:59 Last Admin: 10/05/16 15:30 Dose: 100 mls/hr Insulin Aspart (Novolog) 0 units SUBQ ACHS [facility] PRN Reason: Protocol Stop: 11/20/16 16:29 Last Admin: 10/06/16 06:32 Dose: 4 units Ipratropium [place] (Atrovent Neb 0.5mg/2.5ml) 0.5 mg HHN Q4HRT [facility] Stop: 11/25/16 10:59 Last Admin: 10/06/16 11:36 Dose: 0.5 mg Lactobacillus Rhamnosus (Culturelle) 1 each PO DAILY [facility] Stop: 11/24/16 08:59 Last Admin: 10/06/16 08:47 Dose: 1 each Lactulose (Cephulac) 20 gm GT DAILY [facility] Stop: 11/27/16 08:59 Last Admin: 10/06/16 08:47 Dose: 20 gm Loperamide HCl (Imodium) 2 mg GT Q4H PRN PRN Reason: DIARRHEA Stop: 11/20/16 15:12 Magnesium Hydroxide (Milk Of Magnesia) 30 ml GT DAILY PRN PRN Reason: Constipation Stop: 11/20/16 12:41 Metoclopramide HCl (Reglan) 5 mg IVP TID [facility] Stop: 11/29/16 13:59 Last Admin: 10/06/16 08:47 Dose: 5 mg Miscellaneous (Probiotic Screen) 1 ea PRN PRN PRN Reason: PROTOCOL Stop: 11/24/16 08:48 Miscellaneous (Clinical Monitoring) 1 ea PRN PRN PRN Reason: XARELTO Stop: 11/28/16 11:19 Miscellaneous (Amikacin Iv Per Pharmacy) 1 ea PRN PRN PRN Reason: PROTOCOL Stop: 11/30/16 13:40 Nystatin (Nystop) 100,000 units TP BID [facility] Stop: 11/21/16 08:59 Last Admin: 10/06/16 08:52 Dose: 100,000 units Ondansetron HCl (Zofran) 4 mg IV Q8H PRN PRN Reason: Nausea / Vomiting Stop: 11/20/16 12:45 Rivaroxaban (Xarelto) 10 mg GT DAILY [facility] Stop: 11/21/16 10:59 Last Admin: 10/06/16 08:48 Dose: 10 mg Vitamin A (Vitamin A & D) 5 gm TP DAILY [facility] Stop: 11/21/16 14:59 Last Admin: 10/06/16 08:54 Dose: 5 gm Zinc Sulfate (Zinc Sulfate) 220 mg GT DAILY [facility] Stop: 11/21/16 08:59 Last Admin: 10/06/16 09:10 Dose: 220 mg General: alert HEENT: NC/AT, PERRLA Neck: Supple Lungs: CTAB Cardiovascular: RRR, Normal S1, Normal S2, without murmur Abdomen: soft non-tender, non-distended Extremities: clear - Procedures Procedures: Procedures Procedure Code Date BLOOD TRANSFUSION SERVICE 16033 03/06/16 CHANGE GASTROSTOMY TUBE 77606 06/09/14 AGNIESZKA BONE 20 SQ CM/< 47189 01/28/15 DIAGNOSTIC COLONOSCOPY 78311 03/06/16 EGD BIOPSY SINGLE/MULTIPLE 52910 03/06/16 EXCISION OF DUODENUM, ENDO, DIAGN [id number] 03/06/16 EXCISION OF STOMACH, ENDO, DIAGN [id number] 03/06/16 IMMOBILIZ/WOUND ATTN NEC 93.59 01/28/15 INSERT INDWELLING CATH 57.94 10/18/05 INSERT TEMP BLADDER CATH 03095 10/18/05 INSPECTION OF LOWER INTESTINAL TRACT, ENDO [id number] 03/06/16 INSPECTION OF UPPER INTESTINAL TRACT, ENDO [id number] 10/27/15 LOC EXC BONE LESION NEC 77.69 01/28/15 PACKED CELL TRANSFUSION 99.04 10/20/14 REPLACE GASTROSTOMY TUBE 97.02 06/09/14 TRANSFUSE NONAUT RED BLOOD CELLS IN PERIPH VEIN, PERC [id number] 06/16/16 Internal Medicine Assmt/Plan - Assessment Assessment: sepsis shock pmn acute on crf anemia leukocytosis hypoglycemia mr cp elevated ammonia ESBL URINE MRSA NARES - Plan Plan: transfer to telemetry transfuse with 2units prbc monitor h/h pain mgmt ivabx bronchodilators wound care Nutritional Asmnt/Malnutr-PDOC - Dietary Evaluation Malnutrition Findings (Please click <Entered> for more info): Nutritional Asmnt/Malnutrition Start: 09/22/16 12: 31 Text: Status: Complete Freq: Document 09/22/16 12:32 GSCHAO (Rec: 09/22/16 13:00 GSCHAO [id number]) Nutritional Asmnt/Malnutrition Patient General Information Nutritional Screening High Risk Screening Diagnosis Per ER: sepsis, UTI, HTN, possible PNA, elevated troponin Pertinent Medical Hx/Surgical Hx Per ER: HTN, DM, dyslipidemia, anemia, 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 RD consult for decubitus ulcer and trigger for BG >180. Discussed with RN regarding tube feeding regimens when tube feeding resumed. Unable to obtain new weight due to bedscale not properly calibrated. Current Diet Order/ Nutrition Support NPO Pertinent Medications Vitamin C, lipitor, D5, folate , novolog, novolin, cephulac, MOM, zofran, vancomycin, vitamin A and D, zinc sulfate Pertinent Labs 09/21: BUN 112H, creatinine 1. 6H, glucose 263H, A1c 6.5H, troponin 1.96H 09/22: Potassium 2.8L, BUN 74H (improving), creatinine 1.1 ( improved), glucose 278H POC glucose 58-303H Nutritional Hx/Data Height 4 ft 9 in Height (Calculated Centimeters) 144.8 Current Weight (lbs) 97 lb Weight (Calculated Kilograms) 44.0 Weight (Calculated Grams) 83564.5 Weight Status Approriate GI Symptoms Food Allergies No Cultural/Ethnic/Jainism Belief Unknown. 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 Problem Problem Altered nutrition related laboratory values related to Etiology DM aeb Signs/Symptoms: episodes of hypoglycemia and hyperglycemia, 58L and 303H 1. Problem Problem Increased protein and kcal needs related to Etiology hypermetabolic state aeb Signs/Symptoms: sepsis, possible PNA, mulitple ulcerations Intervention/Recommendation Comments 1. Recommend Diabetisource 50ml/hr x 24hrs, providing 1440kcal and 72g protein, for glycemic control and to better meet nutritional needs. 2. Recommend 1 packet Arginaid BID via g-tube for multiple ulcerations wound healing. 3. If episodes of hypoglycemia persists, consider without carbohydrate restriction with Fibersource HN at 50ml/hrs x 24hrs. Expected Outcomes/Goals Expected Outcomes/Goals 1. Pt to meet 100% of estimated nutritional needs on tube feeding + Arginaid with tolerance. Physician Parameters for PEM Serum Albumin (g/dl) 3.5 - 5.0 (Normal)
--- NOTE | 2016-10-06 15:35 | Pathology Report ---
[id number] Collection date: 10/03/2016 Surgeon: Dr. Syd Rivera Specimen Description: 1: Colon segment 2: Sacral debridement Gross Description: Part I: Received in formalin is a 22 cm in length x 4.2 cm in diameter segment of colon with attached yellow fatty tissue. The outer surface of the colon is jones, smooth, and glistening without any focal lesions appreciated. Opening the colon shows the normal folded mucosa with no evidence for ulceration and no focal lesions. [employer] sections are submitted in two cassettes labeled A1 and A2. Gross Description: Part II: The histologic sections show multiple jones-esparza, irregular soft tissue fragments. Sectioning shows areas of firm fibrotic and possible bony tissue. Totally submitted in one cassette labeled B. Microscopic Description: Part I: The histologic sections show colon mucosa with focal areas of mild nonspecific chronic inflammation consisting of small collections of lymphocytes. Diagnosis: Part I: Mild nonspecific chronic inflammation, redundant colon segment. Microscopic Description: Part II: The histologic sections show fragments of degenerated and partially necrotic fibroconnective tissue with a small area of bony tissue also identified. There is acute and chronic inflammation present consisting of neutrophils admixed with lymphocytes and plasma cells. Diagnosis: Part II: Degenerated fibroconnective and bony tissue showing acute and chronic inflammation, consistent with sacral debridement. [facility]# [id number] [facility]
[2016-10-06] MEDS: Fluconazole 200mg/100mL 200 MG/100 ML BAG IV SCH (17:10)
[2016-10-06] MEDS: Atorvastatin Calcium 10 MG TAB PO SCH (20:48)
[2016-10-07] MEDS: HYDROmorphone 1 mg/mL 1mL Syr IVP PRN ×4 (01:10→19:45)
[2016-10-07] MEDS: Ipratropium Neb 0.5 mg/2.5 mL UD HHN SCH ×6 (02:57→23:35)
[2016-10-07] MEDS: Albuterol Nebulizer 2.5mg/3mL HHN SCH ×6 (02:57→23:35)
[2016-10-07 04:48] LABS: % BASOPHILS 0.3 % (0.0-2.0); % EOSINOPHILS 9.4 % (0.0-5.0); % LYMPHOCYTES 17.9 % (20.0-50.0); % MONOCYTES 8.6 % (2.0-10.0); % NEUTROPHILS 63.8 % (40.0-80.0); MEAN CELL VOLUME 87.5 fl (81-100); MEAN CORPUSCULAR HEMOGLOBIN 30.5 pg (27.0-31.0); MEAN CORPUSCULAR HGB CONC 34.8 pg (28.0-36.0); NEUTROPHILE ABSOLUTE 4.5 Th/cmm (1.8-8.0); PLATELET COUNT 144 Th/cmm (150-400); RED BLOOD COUNT 3.74 Mil/cmm (3.80-5.10); RED CELL DISTRIBUTION WIDTH 14.3 % (11.5-20.0)
[2016-10-07 04:50] LABS: WHITE BLOOD COUNT 7.1 Th/cmm (4.8-10.8)
[2016-10-07 04:51] LABS: HEMATOCRIT 32.7 % (35.0-45.0); HEMOGLOBIN 11.4 gm/dL (11.7-15.5)
[2016-10-07 05:13] LABS: ANION GAP 8.3 (7.0-16.0); BUN - UREA NITROGEN 26 mg/dL (7-25); CALCIUM SERUM 9.5 mg/dL (8.6-10.3); CARBON DIOXIDE 29.6 mEq/L (21.0-31.0); CHLORIDE 105 mEq/L (98-107); CREATININE - SERUM 0.5 mg/dL (0.6-1.2); GLUCOSE 317 mg/dL (70-105); POTASSIUM SERUM 3.9 mEq/L (3.5-5.1); SODIUM SERUM 139 mEq/L (136-145)
[2016-10-07] MEDS: INSULIN ASPART, RECOMBINANT 100 UNITS/ML SUBQ SCH ×4 (07:06→20:50)
[2016-10-07] MEDS: Lactobacillus Rhamnosus 10 Billion CFU Capsule PO SCH (08:13)
[2016-10-07] MEDS: Lactulose 10 Gm/15 mL 30mL UDC GT SCH (08:13)
[2016-10-07] MEDS: Metoclopramide 5 mg/mL 2mL Vial IVP SCH ×3 (08:13→20:51)
[2016-10-07] MEDS: Multivitamin w/ Minerals Tab GT SCH (08:13)
[2016-10-07] MEDS: Vitamin A/Vitamin D 5 gm Packet TP SCH (08:14)
[2016-10-07] MEDS: NYSTATIN 100000 UNITS/GM POWD TP SCH ×2 (08:18→08:19)
[2016-10-07] MEDS: guaiFENesin 200 MG/10 ML UDC GT PRN ×2 (08:19→12:59)
[2016-10-07] MEDS: Amikacin 500 mg in D5W 100mL (Q24HR) IV SCH (08:36)
--- NOTE | 2016-10-07 09:00 | General Progress Note ---
Subjective - Review of Systems Service Date: 10/07/16 Events since last encounter: Hb today 11.4 after 2 units PRBC incision healing well GT feedings tolerated with minimal ostomy output urine output excellent Subjective: VS stable urine output adequate extubated, on air O2 sat ok Hb 7.8 gm, might need PRBC dressings dry Objective - Results Result Diagrams: 10/07/16 04:40 10/07/16 04:40 Recent Labs: Laboratory Last Values WBC 7.1 Th/cmm (4.8-10.8) D 10/07/16 04:40 RBC 3.74 Mil/cmm (3.80-5.10) L 10/07/16 04:40 Hgb 11.4 gm/dL (11.7-15.5) L D 10/07/16 04:40 Hct 32.7 % (35.0-45.0) L D 10/07/16 04:40 MCV 87.5 fl (81-100) 10/07/16 04:40 MCH 30.5 pg (27.0-31.0) 10/07/16 04:40 MCHC Differential 34.8 pg (28.0-36.0) 10/07/16 04:40 RDW 14.3 % (11.5-20.0) 10/07/16 04:40 Plt Count 144 Th/cmm (150-400) L 10/07/16 04:40 MPV 8.0 fl 10/07/16 04:40 Neutrophils % 63.8 % (40.0-80.0) 10/07/16 04:40 Band Neutrophils % 6 % (0-10) 10/06/16 04:50 Lymphocytes % 17.9 % (20.0-50.0) L 10/07/16 04:40 Monocytes % 8.6 % (2.0-10.0) 10/07/16 04:40 Eosinophils % 9.4 % (0.0-5.0) H 10/07/16 04:40 Basophils % 0.3 % (0.0-2.0) 10/07/16 04:40 Neutrophils (Manual) 63 % (40-80) 10/06/16 04:50 Lymphocytes 15 % (20-50) L 10/06/16 04:50 Monocytes 9 % (2-10) 10/06/16 04:50 Eosinophils 6 % (0-5) H 10/06/16 04:50 Basophils 1 % (0-3) 10/06/16 04:50 Platelet Estimate DECREASED PLATELETS (NORMAL) 10/06/16 04:50 Platelet Morphology NORMAL (NORMAL) 10/06/16 04:50 Polychromasia 1+ 09/22/16 04:49 Anisocytosis 1+ 10/06/16 04:50 RBC Morph Micro Appear ABNORMAL (NORMAL) 10/06/16 04:50 PT 10.3 SECONDS (9.5-11.5) 10/03/16 04:45 INR 0.99 (0.5-1.4) 10/03/16 04:45 PTT (Actin FS) 26.3 SECONDS (26.0-38.0) 10/03/16 04:45 Sodium 139 mEq/L (136-145) 10/07/16 04:40 Potassium 3.9 mEq/L (3.5-5.1) 10/07/16 04:40 Chloride 105 mEq/L (98-107) 10/07/16 04:40 Carbon Dioxide 29.6 mEq/L (21.0-31.0) 10/07/16 04:40 Anion Gap 8.3 (7.0-16.0) 10/07/16 04:40 BUN 26 mg/dL (7-25) H 10/07/16 04:40 Creatinine 0.5 mg/dL (0.6-1.2) L 10/07/16 04:40 Est GFR ( Amer) > 60.0 ml/min (>90) 10/07/16 04:40 Est GFR (Non-Af Amer) > 60.0 ml/min 10/07/16 04:40 BUN/Creatinine Ratio 52.0 10/07/16 04:40 Glucose 317 mg/dL (70-105) H 10/07/16 04:40 POC Glucose 341 MG/DL (70 - 105) H 10/07/16 07:05 Hemoglobin A1c % 6.5 % (4.0-6.0) H 09/21/16 09:13 Whole Bld Lactic Acid 0.96 mmol/L (0.60-2.00) 09/21/16 22:05 Calcium 9.5 mg/dL (8.6-10.3) 10/07/16 04:40 Magnesium 2.0 mg/dL (1.9-2.7) 10/07/16 04:40 Total Bilirubin 0.4 mg/dL (0.3-1.0) 10/05/16 06:10 Direct Bilirubin 0.07 mg/dL (0.0-0.2) 09/27/16 04:56 AST 21 U/L (13-39) 10/05/16 06:10 ALT 17 U/L (7-52) 10/05/16 06:10 Alkaline Phosphatase 113 U/L (34-104) H 10/05/16 06:10 Ammonia 52 umol/L (16-53) 10/03/16 04:45 Troponin I 0.79 ng/mL (0.01-0.05) H* D 09/21/16 22:05 B-Natriuretic Peptide 64.0 pg/mL (5.0-100.0) 10/03/16 04:45 Total Protein 5.9 gm/dL (6.0-8.3) L 10/05/16 06:10 Albumin 2.4 gm/dL (3.7-5.3) L 10/05/16 06:10 Globulin 3.5 gm/dL 10/05/16 06:10 Albumin/Globulin Ratio 0.7 (1.0-1.8) L 10/05/16 06:10 Urine Source CATH 10/01/16 09:30 Urine Color YELLOW 10/01/16 09:30 Urine Clarity SL. CLOUDY (CLEAR) 10/01/16 09:30 Urine pH 7.5 10/01/16 09:30 Ur Specific [place] 1.020 (1.005-1.030) 10/01/16 09:30 Urine Protein 100 mg/dL (NEGATIVE) H 10/01/16 09:30 Urine Glucose (UA) NEGATIVE mg/dL (NEGATIVE) 10/01/16 09:30 Urine Ketones NEGATIVE mg/dL (NEGATIVE) 10/01/16 09:30 Urine Blood SMALL (NEGATIVE) H 10/01/16 09:30 Urine Nitrate NEGATIVE (NEGATIVE) 10/01/16 09:30 Urine Bilirubin NEGATIVE (NEGATIVE) 10/01/16 09:30 Urine Urobilinogen 0.2 E.U./dL (0.2 - 1.0) 10/01/16 09:30 Ur Leukocyte Esterase SMALL (NEGATIVE) H 10/01/16 09:30 Urine RBC 5-10 /hpf (0-5) H 10/01/16 09:30 Urine WBC 25-50 /hpf (0-5) H 10/01/16 09:30 Ur Epithelial Cells OCCASIONAL /lpf (FEW) 10/01/16 09:30 Urine Bacteria FEW /hpf (NONE SEEN) 10/01/16 09:30 Amikacin Peak 6.0 ug/mL (20.0-30.0) L 10/03/16 09:30 Amikacin Trough 6.8 ug/mL (1.0-8.0) 10/03/16 08:05 Vancomycin Trough 20.4 ug/mL (10-20) H 09/23/16 16:20 Digoxin 2.3 ng/ml (0.8-2.0) H 09/29/16 07:55 Blood Type O POSITIVE 10/06/16 09:45 Antibody Screen NEGATIVE 10/06/16 09:45 Crossmatch See Detail 10/06/16 09:45 - Physical Exam Vitals and I&O: Vital Signs Temp 98.2 F 10/07/16 06:00 Pulse 88 10/07/16 07:00 Resp 16 10/07/16 07:00 BP 129/71 10/07/16 07:00 Pulse Ox 100 10/07/16 07:00 Intake & Output 10/06/16 10/07/16 10/07/16 18:59 06:59 18:59 Intake Total 851.4 1120 Output Total 1200 1200 Balance -348.6 -80 Weight (lbs) 53.66 kg Intake: Intake, IV Amount 101.4 Amikacin 350 mg In 101.4 Dextrose 5% 100 ml @ 200 mls/hr IV Q24HR@0900 [facility] Rx#:[id number] Oral 0 Tube Feeding 600 720 Blood Product 250 Other 150 150 Output: Urine 1200 1200 Stool 0 0 Active Medications: Current Medications Acetaminophen (Tylenol 650mg/20.3ml Suspension) 650 mg GT Q4H PRN PRN Reason: MILD PAIN AND FEVER >101 Stop: 11/20/16 12:41 Last Admin: 10/05/16 05:59 Dose: 650 mg Acetylcysteine (Mucomyst 20%) 3 ml HHN Q4HR [facility] Stop: 11/24/16 15:59 Last Admin: 10/07/16 02:57 Dose: 3 ml Albuterol Sulfate (Albuterol 2.5mg/3ml Neb Ud) 2.5 mg HHN Q4HRT [facility] Stop: 11/25/16 10:59 Last Admin: 10/07/16 02:57 Dose: 2.5 mg Ascorbic Acid (Vitamin C) 500 mg GT DAILY [facility] Stop: 11/21/16 08:59 Last Admin: 10/07/16 08:13 Dose: 500 mg Atorvastatin Calcium (Lipitor) 40 mg PO HS [facility] Stop: 11/20/16 20:59 Last Admin: 10/06/16 20:48 Dose: 40 mg Dextrose (D50w) 50 ml IVP PRN PRN PRN Reason: blood sugar < 60 Stop: 11/25/16 21:35 Last Admin: 09/27/16 21:49 Dose: 50 ml Diltiazem HCl (Cardizem) 20 mg IVP Q4H PRN PRN Reason: HR Greater than 130 per min Stop: 11/20/16 12:45 Last Admin: 09/28/16 08:05 Dose: 20 mg Folic Acid (Folate) 1 mg GT DAILY [facility] Stop: 11/21/16 08:59 Last Admin: 10/07/16 08:13 Dose: 1 mg Guaifenesin (Robitussin) 200 mg GT Q4HR PRN PRN Reason: Cough or Congestion Stop: 11/20/16 12:41 Last Admin: 10/07/16 08:19 Dose: 200 mg Hydromorphone HCl (Dilaudid) 0.5 mg IVP Q4HR PRN PRN Reason: pain Stop: 11/26/16 19:54 Last Admin: 10/07/16 01:10 Dose: 0.5 mg Norepinephrine Bitartrate 4 mg (/ Dextrose) 254 mls @ 38.1 mls/hr IV TITR PRN; Protocol; 10 MCG/MIN PRN Reason: BP MAINTENANCE (PER PROTOCOL) Stop: 11/20/16 23:39 Last Admin: 09/28/16 12:18 Dose: 4 mcg/min, 15.24 mls/hr Dextrose (D5w) 1,000 mls @ 10 mls/hr IV .Q24H [facility] Stop: 11/30/16 08:24 Last Admin: 10/04/16 19:08 Dose: 10 mls/hr Amikacin Sulfate 350 mg/ (Dextrose) 101.4 mls @ 200 mls/hr IV Q24HR@0900 [facility] Stop: 11/30/16 14:59 Last Admin: 10/07/16 08:36 Dose: 100 mls/hr Fluconazole (Diflucan) 200 mg in 100 mls @ 100 mls/hr IV Q24HR [facility] Stop: 12/04/16 13:59 Last Admin: 10/06/16 17:10 Dose: 100 mls/hr Insulin Aspart (Novolog) 0 units SUBQ ACHS [facility] PRN Reason: Protocol Stop: 11/20/16 16:29 Last Admin: 10/07/16 07:06 Dose: 6 units Ipratropium [place] (Atrovent Neb 0.5mg/2.5ml) 0.5 mg HHN Q4HRT [facility] Stop: 11/25/16 10:59 Last Admin: 10/07/16 02:57 Dose: 0.5 mg Lactobacillus Rhamnosus (Culturelle) 1 each PO DAILY [facility] Stop: 11/24/16 08:59 Last Admin: 10/07/16 08:13 Dose: 1 each Lactulose (Cephulac) 20 gm GT DAILY [facility] Stop: 11/27/16 08:59 Last Admin: 10/07/16 08:13 Dose: 20 gm Loperamide HCl (Imodium) 2 mg GT Q4H PRN PRN Reason: DIARRHEA Stop: 11/20/16 15:12 Magnesium Hydroxide (Milk Of Magnesia) 30 ml GT DAILY PRN PRN Reason: Constipation Stop: 11/20/16 12:41 Metoclopramide HCl (Reglan) 5 mg IVP TID [facility] Stop: 11/29/16 13:59 Last Admin: 10/07/16 08:13 Dose: 5 mg Miscellaneous (Probiotic Screen) 1 ea PRN PRN PRN Reason: PROTOCOL Stop: 11/24/16 08:48 Miscellaneous (Clinical Monitoring) 1 ea PRN PRN PRN Reason: XARELTO Stop: 11/28/16 11:19 Miscellaneous (Amikacin Iv Per Pharmacy) 1 ea PRN PRN PRN Reason: PROTOCOL Stop: 11/30/16 13:40 Nystatin (Nystop) 100,000 units TP BID [facility] Stop: 11/21/16 08:59 Last Admin: 10/07/16 08:19 Dose: 100,000 units Ondansetron HCl (Zofran) 4 mg IV Q8H PRN PRN Reason: Nausea / Vomiting Stop: 11/20/16 12:45 Rivaroxaban (Xarelto) 10 mg GT DAILY [facility] Stop: 11/21/16 10:59 Last Admin: 10/07/16 08:18 Dose: 10 mg Vitamin A (Vitamin A & D) 5 gm TP DAILY [facility] Stop: 11/21/16 14:59 Last Admin: 10/07/16 08:14 Dose: 5 gm Zinc Sulfate (Zinc Sulfate) 220 mg GT DAILY [facility] Stop: 11/21/16 08:59 Last Admin: 10/07/16 08:13 Dose: 220 mg - Procedures Procedures: Procedures Procedure Code Date BLOOD TRANSFUSION SERVICE 79294 03/06/16 BYPASS DESCENDING COLON TO CUTANEOUS, OPEN APPROACH [id number] 09/21/16 CHANGE GASTROSTOMY TUBE 75865 06/09/14 COLOSTOMY 41976 09/21/16 AGNIESZKA BONE 20 SQ CM/< 66161 01/28/15 DIAGNOSTIC COLONOSCOPY 55945 03/06/16 EGD BIOPSY SINGLE/MULTIPLE 32331 03/06/16 EXCISION OF DUODENUM, ENDO, DIAGN [id number] 03/06/16 EXCISION OF SACRUM, OPEN APPROACH [id number] 09/21/16 EXCISION OF STOMACH, ENDO, DIAGN [id number] 03/06/16 IMMOBILIZ/WOUND ATTN NEC 93.59 01/28/15 INSERT INDWELLING CATH 57.94 10/18/05 INSERT TEMP BLADDER CATH 06214 10/18/05 INSPECTION OF LOWER INTESTINAL TRACT, ENDO [id number] 03/06/16 INSPECTION OF UPPER INTESTINAL TRACT, ENDO [id number] 10/27/15 LOC EXC BONE LESION NEC 77.69 01/28/15 PACKED CELL TRANSFUSION 99.04 10/20/14 REMOVAL OF PRESSURE SORE 75667 09/21/16 REPLACE GASTROSTOMY TUBE 97.02 06/09/14 RESPIRATORY VENTILATION, LESS THAN 24 CONSECUTIVE HOURS [id number] 09/21/16 TRANSFUSE NONAUT RED BLOOD CELLS IN PERIPH VEIN, PERC [id number] 06/16/16 VENT MGMT INPAT INIT DAY 59032 09/21/16 Assessment/Plan - Problem List Patient Problems: All Active Problems HYPOTENSION WITH TACHYCARDIA AND CONGEST (Acute) Anemia (Acute 03/06/16) D64.9 Dyspnea (Acute) R06.00 Fever, unspecified (Acute) R50.9 Hyperglycemia (Acute) R73.9 Hyperosmolality and/or hypernatremia (Acute) E87.0 Mental retardation (Acute) F79 Other abnormal clinical finding (Acute) R68.89 Pneumonia (Acute) J18.9 Staphylococcal sepsis (Acute) Uncontrolled diabetes mellitus (Acute) E11.65 Urinary tract infection (Acute) Nutritional Asmnt/Malnutr-PDOC - Dietary Evaluation Malnutrition Findings (Please click <Entered> for more info): Nutritional Asmnt/Malnutrition Start: 09/22/16 12: 31 Text: Status: Complete Freq: Document 09/22/16 12:32 GSUN (Rec: 09/22/16 13:00 GSUN [email or web address]) Nutritional Asmnt/Malnutrition Patient General Information Nutritional Screening High Risk Screening Diagnosis Per ER: sepsis, UTI, HTN, possible PNA, elevated troponin Pertinent Medical Hx/Surgical Hx Per ER: HTN, DM, dyslipidemia, anemia, 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 RD consult for decubitus ulcer and trigger for BG >180. Discussed with RN regarding tube feeding regimens when tube feeding resumed. Unable to obtain new weight due to bedscale not properly calibrated. Current Diet Order/ Nutrition Support NPO Pertinent Medications Vitamin C, lipitor, D5, folate , novolog, novolin, cephulac, MOM, zofran, vancomycin, vitamin A and D, zinc sulfate Pertinent Labs 09/21: BUN 112H, creatinine 1. 6H, glucose 263H, A1c 6.5H, troponin 1.96H 09/22: Potassium 2.8L, BUN 74H (improving), creatinine 1.1 ( improved), glucose 278H POC glucose 58-303H Nutritional Hx/Data Height 1.45 m Height (Calculated Centimeters) 144.8 Current Weight (lbs) 43.998 kg Weight (Calculated Kilograms) 44.0 Weight (Calculated Grams) 36722.5 Weight Status Approriate GI Symptoms Food Allergies No Cultural/Ethnic/Evangelical Belief Unknown. 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 Problem Problem Altered nutrition related laboratory values related to Etiology DM aeb Signs/Symptoms: episodes of hypoglycemia and hyperglycemia, 58L and 303H 1. Problem Problem Increased protein and kcal needs related to Etiology hypermetabolic state aeb Signs/Symptoms: sepsis, possible PNA, mulitple ulcerations Intervention/Recommendation Comments 1. Recommend Diabetisource 50ml/hr x 24hrs, providing 1440kcal and 72g protein, for glycemic control and to better meet nutritional needs. 2. Recommend 1 packet Arginaid BID via g-tube for multiple ulcerations wound healing. 3. If episodes of hypoglycemia persists, consider without carbohydrate restriction with Fibersource HN at 50ml/hrs x 24hrs. Expected Outcomes/Goals Expected Outcomes/Goals 1. Pt to meet 100% of estimated nutritional needs on tube feeding + Arginaid with tolerance. Physician Parameters for PEM Serum Albumin (g/dl) 3.5 - 5.0 (Normal)
--- NOTE | 2016-10-07 12:02 | Internal Medicine Prog Note ---
Internal Medicine Subjective - Subjective Service Date: 10/07/16 (f/c noted with rosa ) Patient seen and examined:: with staff Patient is:: awake, non-verbal Per staff patient is:: no adverse event Internal Medicine Objective - Results Result Diagrams: 10/07/16 04:40 10/07/16 04:40 Recent Labs: Laboratory Last Values WBC 7.1 Th/cmm (4.8-10.8) D 10/07/16 04:40 RBC 3.74 Mil/cmm (3.80-5.10) L 10/07/16 04:40 Hgb 11.4 gm/dL (11.7-15.5) L D 10/07/16 04:40 Hct 32.7 % (35.0-45.0) L D 10/07/16 04:40 MCV 87.5 fl (81-100) 10/07/16 04:40 MCH 30.5 pg (27.0-31.0) 10/07/16 04:40 MCHC Differential 34.8 pg (28.0-36.0) 10/07/16 04:40 RDW 14.3 % (11.5-20.0) 10/07/16 04:40 Plt Count 144 Th/cmm (150-400) L 10/07/16 04:40 MPV 8.0 fl 10/07/16 04:40 Neutrophils % 63.8 % (40.0-80.0) 10/07/16 04:40 Band Neutrophils % 6 % (0-10) 10/06/16 04:50 Lymphocytes % 17.9 % (20.0-50.0) L 10/07/16 04:40 Monocytes % 8.6 % (2.0-10.0) 10/07/16 04:40 Eosinophils % 9.4 % (0.0-5.0) H 10/07/16 04:40 Basophils % 0.3 % (0.0-2.0) 10/07/16 04:40 Neutrophils (Manual) 63 % (40-80) 10/06/16 04:50 Lymphocytes 15 % (20-50) L 10/06/16 04:50 Monocytes 9 % (2-10) 10/06/16 04:50 Eosinophils 6 % (0-5) H 10/06/16 04:50 Basophils 1 % (0-3) 10/06/16 04:50 Platelet Estimate DECREASED PLATELETS (NORMAL) 10/06/16 04:50 Platelet Morphology NORMAL (NORMAL) 10/06/16 04:50 Polychromasia 1+ 09/22/16 04:49 Anisocytosis 1+ 10/06/16 04:50 RBC Morph Micro Appear ABNORMAL (NORMAL) 10/06/16 04:50 PT 10.3 SECONDS (9.5-11.5) 10/03/16 04:45 INR 0.99 (0.5-1.4) 10/03/16 04:45 PTT (Actin FS) 26.3 SECONDS (26.0-38.0) 10/03/16 04:45 Sodium 139 mEq/L (136-145) 10/07/16 04:40 Potassium 3.9 mEq/L (3.5-5.1) 10/07/16 04:40 Chloride 105 mEq/L (98-107) 10/07/16 04:40 Carbon Dioxide 29.6 mEq/L (21.0-31.0) 10/07/16 04:40 Anion Gap 8.3 (7.0-16.0) 10/07/16 04:40 BUN 26 mg/dL (7-25) H 10/07/16 04:40 Creatinine 0.5 mg/dL (0.6-1.2) L 10/07/16 04:40 Est GFR ( Amer) > 60.0 ml/min (>90) 10/07/16 04:40 Est GFR (Non-Af Amer) > 60.0 ml/min 10/07/16 04:40 BUN/Creatinine Ratio 52.0 10/07/16 04:40 Glucose 317 mg/dL (70-105) H 10/07/16 04:40 POC Glucose 341 MG/DL (70 - 105) H 10/07/16 07:05 Hemoglobin A1c % 6.5 % (4.0-6.0) H 09/21/16 09:13 Whole Bld Lactic Acid 0.96 mmol/L (0.60-2.00) 09/21/16 22:05 Calcium 9.5 mg/dL (8.6-10.3) 10/07/16 04:40 Magnesium 2.0 mg/dL (1.9-2.7) 10/07/16 04:40 Total Bilirubin 0.4 mg/dL (0.3-1.0) 10/05/16 06:10 Direct Bilirubin 0.07 mg/dL (0.0-0.2) 09/27/16 04:56 AST 21 U/L (13-39) 10/05/16 06:10 ALT 17 U/L (7-52) 10/05/16 06:10 Alkaline Phosphatase 113 U/L (34-104) H 10/05/16 06:10 Ammonia 52 umol/L (16-53) 10/03/16 04:45 Troponin I 0.79 ng/mL (0.01-0.05) H* D 09/21/16 22:05 B-Natriuretic Peptide 64.0 pg/mL (5.0-100.0) 10/03/16 04:45 Total Protein 5.9 gm/dL (6.0-8.3) L 10/05/16 06:10 Albumin 2.4 gm/dL (3.7-5.3) L 10/05/16 06:10 Globulin 3.5 gm/dL 10/05/16 06:10 Albumin/Globulin Ratio 0.7 (1.0-1.8) L 10/05/16 06:10 Urine Source CATH 10/01/16 09:30 Urine Color YELLOW 10/01/16 09:30 Urine Clarity SL. CLOUDY (CLEAR) 10/01/16 09:30 Urine pH 7.5 10/01/16 09:30 Ur Specific [place] 1.020 (1.005-1.030) 10/01/16 09:30 Urine Protein 100 mg/dL (NEGATIVE) H 10/01/16 09:30 Urine Glucose (UA) NEGATIVE mg/dL (NEGATIVE) 10/01/16 09:30 Urine Ketones NEGATIVE mg/dL (NEGATIVE) 10/01/16 09:30 Urine Blood SMALL (NEGATIVE) H 10/01/16 09:30 Urine Nitrate NEGATIVE (NEGATIVE) 10/01/16 09:30 Urine Bilirubin NEGATIVE (NEGATIVE) 10/01/16 09:30 Urine Urobilinogen 0.2 E.U./dL (0.2 - 1.0) 10/01/16 09:30 Ur Leukocyte Esterase SMALL (NEGATIVE) H 10/01/16 09:30 Urine RBC 5-10 /hpf (0-5) H 10/01/16 09:30 Urine WBC 25-50 /hpf (0-5) H 10/01/16 09:30 Ur Epithelial Cells OCCASIONAL /lpf (FEW) 10/01/16 09:30 Urine Bacteria FEW /hpf (NONE SEEN) 10/01/16 09:30 Amikacin Peak 6.0 ug/mL (20.0-30.0) L 10/03/16 09:30 Amikacin Trough 6.8 ug/mL (1.0-8.0) 10/03/16 08:05 Vancomycin Trough 20.4 ug/mL (10-20) H 09/23/16 16:20 Digoxin 2.3 ng/ml (0.8-2.0) H 09/29/16 07:55 Blood Type O POSITIVE 10/06/16 09:45 Antibody Screen NEGATIVE 10/06/16 09:45 Crossmatch See Detail 10/06/16 09:45 - Physical Exam Vitals and I&O: Vital Signs Temp 98.2 F 10/07/16 08:00 Pulse 102 10/07/16 08:00 Resp 16 10/07/16 08:00 BP 130/70 10/07/16 08:00 Pulse Ox 100 10/07/16 08:00 Intake & Output 10/06/16 10/07/16 10/07/16 18:59 06:59 18:59 Intake Total 851.4 1120 Output Total 1200 1200 Balance -348.6 -80 Weight (lbs) 118 lb 4.8 oz Intake: Intake, IV Amount 101.4 Amikacin 350 mg In 101.4 Dextrose 5% 100 ml @ 200 mls/hr IV Q24HR@0900 [facility] Rx#:[id number] Oral 0 Tube Feeding 600 720 Blood Product 250 Other 150 150 Output: Urine 1200 1200 Stool 0 0 Active Medications: Current Medications Acetaminophen (Tylenol 650mg/20.3ml Suspension) 650 mg GT Q4H PRN PRN Reason: MILD PAIN AND FEVER >101 Stop: 11/20/16 12:41 Last Admin: 10/05/16 05:59 Dose: 650 mg Acetylcysteine (Mucomyst 20%) 3 ml HHN Q4HR [facility] Stop: 11/24/16 15:59 Last Admin: 10/07/16 09:25 Dose: 3 ml Albuterol Sulfate (Albuterol 2.5mg/3ml Neb Ud) 2.5 mg HHN Q4HRT [facility] Stop: 11/25/16 10:59 Last Admin: 10/07/16 09:25 Dose: 2.5 mg Ascorbic Acid (Vitamin C) 500 mg GT DAILY [facility] Stop: 11/21/16 08:59 Last Admin: 10/07/16 08:13 Dose: 500 mg Atorvastatin Calcium (Lipitor) 40 mg PO HS [facility] Stop: 11/20/16 20:59 Last Admin: 10/06/16 20:48 Dose: 40 mg Dextrose (D50w) 50 ml IVP PRN PRN PRN Reason: blood sugar < 60 Stop: 11/25/16 21:35 Last Admin: 09/27/16 21:49 Dose: 50 ml Diltiazem HCl (Cardizem) 20 mg IVP Q4H PRN PRN Reason: HR Greater than 130 per min Stop: 11/20/16 12:45 Last Admin: 09/28/16 08:05 Dose: 20 mg Folic Acid (Folate) 1 mg GT DAILY [facility] Stop: 11/21/16 08:59 Last Admin: 10/07/16 08:13 Dose: 1 mg Guaifenesin (Robitussin) 200 mg GT Q4HR PRN PRN Reason: Cough or Congestion Stop: 11/20/16 12:41 Last Admin: 10/07/16 08:19 Dose: 200 mg Hydromorphone HCl (Dilaudid) 0.5 mg IVP Q4HR PRN PRN Reason: pain Stop: 11/26/16 19:54 Last Admin: 10/07/16 09:04 Dose: 0.5 mg Norepinephrine Bitartrate 4 mg (/ Dextrose) 254 mls @ 38.1 mls/hr IV TITR PRN; Protocol; 10 MCG/MIN PRN Reason: BP MAINTENANCE (PER PROTOCOL) Stop: 11/20/16 23:39 Last Admin: 09/28/16 12:18 Dose: 4 mcg/min, 15.24 mls/hr Dextrose (D5w) 1,000 mls @ 10 mls/hr IV .Q24H [facility] Stop: 11/30/16 08:24 Last Admin: 10/04/16 19:08 Dose: 10 mls/hr Amikacin Sulfate 350 mg/ (Dextrose) 101.4 mls @ 200 mls/hr IV Q24HR@0900 [facility] Stop: 11/30/16 14:59 Last Admin: 10/07/16 08:36 Dose: 100 mls/hr Fluconazole (Diflucan) 200 mg in 100 mls @ 100 mls/hr IV Q24HR [facility] Stop: 12/04/16 13:59 Last Admin: 10/06/16 17:10 Dose: 100 mls/hr Insulin Aspart (Novolog) 0 units SUBQ ACHS [facility] PRN Reason: Protocol Stop: 11/20/16 16:29 Last Admin: 10/07/16 07:06 Dose: 6 units Ipratropium [place] (Atrovent Neb 0.5mg/2.5ml) 0.5 mg HHN Q4HRT [facility] Stop: 11/25/16 10:59 Last Admin: 10/07/16 09:25 Dose: 0.5 mg Lactobacillus Rhamnosus (Culturelle) 1 each PO DAILY [facility] Stop: 11/24/16 08:59 Last Admin: 10/07/16 08:13 Dose: 1 each Lactulose (Cephulac) 20 gm GT DAILY [facility] Stop: 11/27/16 08:59 Last Admin: 10/07/16 08:13 Dose: 20 gm Loperamide HCl (Imodium) 2 mg GT Q4H PRN PRN Reason: DIARRHEA Stop: 11/20/16 15:12 Magnesium Hydroxide (Milk Of Magnesia) 30 ml GT DAILY PRN PRN Reason: Constipation Stop: 11/20/16 12:41 Metoclopramide HCl (Reglan) 5 mg IVP TID [facility] Stop: 11/29/16 13:59 Last Admin: 10/07/16 08:13 Dose: 5 mg Miscellaneous (Probiotic Screen) 1 ea MC PRN PRN PRN Reason: PROTOCOL Stop: 11/24/16 08:48 Miscellaneous (Clinical Monitoring) 1 ea MC PRN PRN PRN Reason: XARELTO Stop: 11/28/16 11:19 Miscellaneous (Amikacin Iv Per Pharmacy) 1 ea MC PRN PRN PRN Reason: PROTOCOL Stop: 11/30/16 13:40 Nystatin (Nystop) 100,000 units TP BID [facility] Stop: 11/21/16 08:59 Last Admin: 10/07/16 08:19 Dose: 100,000 units Ondansetron HCl (Zofran) 4 mg IV Q8H PRN PRN Reason: Nausea / Vomiting Stop: 11/20/16 12:45 Rivaroxaban (Xarelto) 10 mg GT DAILY [facility] Stop: 11/21/16 10:59 Last Admin: 10/07/16 08:18 Dose: 10 mg Vitamin A (Vitamin A & D) 5 gm TP DAILY [facility] Stop: 11/21/16 14:59 Last Admin: 10/07/16 08:14 Dose: 5 gm Zinc Sulfate (Zinc Sulfate) 220 mg GT DAILY [facility] Stop: 11/21/16 08:59 Last Admin: 10/07/16 08:13 Dose: 220 mg General: alert HEENT: NC/AT, PERRLA Neck: Supple Lungs: ronchi Cardiovascular: Normal S1, Normal S2, without murmur Abdomen: soft non-tender, non-distended, +GT - Procedures Procedures: Procedures Procedure Code Date BLOOD TRANSFUSION SERVICE 00573 03/06/16 BYPASS DESCENDING COLON TO CUTANEOUS, OPEN APPROACH [id number] 09/21/16 CHANGE GASTROSTOMY TUBE 99872 06/09/14 COLOSTOMY 89549 09/21/16 AGNIESZKA BONE 20 SQ CM/< 28419 01/28/15 DIAGNOSTIC COLONOSCOPY 77091 03/06/16 EGD BIOPSY SINGLE/MULTIPLE 69978 03/06/16 EXCISION OF DUODENUM, ENDO, DIAGN [id number] 03/06/16 EXCISION OF SACRUM, OPEN APPROACH [id number] 09/21/16 EXCISION OF STOMACH, ENDO, DIAGN [id number] 03/06/16 IMMOBILIZ/WOUND ATTN NEC 93.59 01/28/15 INSERT INDWELLING CATH 57.94 10/18/05 INSERT TEMP BLADDER CATH 42683 10/18/05 INSPECTION OF LOWER INTESTINAL TRACT, ENDO [id number] 03/06/16 INSPECTION OF UPPER INTESTINAL TRACT, ENDO [id number] 10/27/15 LOC EXC BONE LESION NEC 77.69 01/28/15 PACKED CELL TRANSFUSION 99.04 10/20/14 REMOVAL OF PRESSURE SORE 02449 09/21/16 REPLACE GASTROSTOMY TUBE 97.02 06/09/14 RESPIRATORY VENTILATION, LESS THAN 24 CONSECUTIVE HOURS [id number] 09/21/16 TRANSFUSE NONAUT RED BLOOD CELLS IN PERIPH VEIN, PERC 21506Z8 06/16/16 VENT MGMT INPAT INIT DAY 28312 09/21/16 Internal Medicine Assmt/Plan - Assessment Assessment: sepsis shock pmn acute on crf anemia leukocytosis hypoglycemia mr cp elevated ammonia ESBL URINE MRSA NARES - Plan Plan: transfer to telemetry when bed available monitor h/h pain mgmt ivabx bronchodilators wound care Nutritional Asmnt/Malnutr-PDOC - Dietary Evaluation Malnutrition Findings (Please click <Entered> for more info): Nutritional Asmnt/Malnutrition Start: 09/22/16 12: 31 Text: Status: Complete Freq: Document 09/22/16 12:32 GSUN (Rec: 09/22/16 13:00 GSUN [email or web address]) Nutritional Asmnt/Malnutrition Patient General Information Nutritional Screening High Risk Screening Diagnosis Per ER: sepsis, UTI, HTN, possible PNA, elevated troponin Pertinent Medical Hx/Surgical Hx Per ER: HTN, DM, dyslipidemia, anemia, 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 RD consult for decubitus ulcer and trigger for BG >180. Discussed with RN regarding tube feeding regimens when tube feeding resumed. Unable to obtain new weight due to bedscale not properly calibrated. Current Diet Order/ Nutrition Support NPO Pertinent Medications Vitamin C, lipitor, D5, folate , novolog, novolin, cephulac, MOM, zofran, vancomycin, vitamin A and D, zinc sulfate Pertinent Labs 09/21: BUN 112H, creatinine 1. 6H, glucose 263H, A1c 6.5H, troponin 1.96H 09/22: Potassium 2.8L, BUN 74H (improving), creatinine 1.1 ( improved), glucose 278H POC glucose 58-303H Nutritional Hx/Data Height 4 ft 9 in Height (Calculated Centimeters) 144.8 Current Weight (lbs) 97 lb Weight (Calculated Kilograms) 44.0 Weight (Calculated Grams) 78173.5 Weight Status Approriate GI Symptoms Food Allergies No Cultural/Ethnic/Anabaptism Belief Unknown. 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 Problem Problem Altered nutrition related laboratory values related to Etiology DM aeb Signs/Symptoms: episodes of hypoglycemia and hyperglycemia, 58L and 303H 1. Problem Problem Increased protein and kcal needs related to Etiology hypermetabolic state aeb Signs/Symptoms: sepsis, possible PNA, mulitple ulcerations Intervention/Recommendation Comments 1. Recommend Diabetisource 50ml/hr x 24hrs, providing 1440kcal and 72g protein, for glycemic control and to better meet nutritional needs. 2. Recommend 1 packet Arginaid BID via g-tube for multiple ulcerations wound healing. 3. If episodes of hypoglycemia persists, consider without carbohydrate restriction with Fibersource HN at 50ml/hrs x 24hrs. Expected Outcomes/Goals Expected Outcomes/Goals 1. Pt to meet 100% of estimated nutritional needs on tube feeding + Arginaid with tolerance. Physician Parameters for PEM Serum Albumin (g/dl) 3.5 - 5.0 (Normal)
[2016-10-07] MEDS: Fluconazole 200mg/100mL 200 MG/100 ML BAG IV SCH (14:17)
[2016-10-07] MEDS: Atorvastatin Calcium 10 MG TAB PO SCH (20:52)
[2016-10-08] MEDS: HYDROmorphone 1 mg/mL 1mL Syr IVP PRN ×2 (00:19→20:52)
[2016-10-08] MEDS: Ipratropium Neb 0.5 mg/2.5 mL UD HHN SCH ×6 (03:20→22:57)
[2016-10-08] MEDS: Albuterol Nebulizer 2.5mg/3mL HHN SCH ×6 (03:20→22:57)
[2016-10-08 05:38] LABS: % BASOPHILS 0.7 % (0.0-2.0); % EOSINOPHILS 8.9 % (0.0-5.0); % LYMPHOCYTES 15.7 % (20.0-50.0); % MONOCYTES 8.8 % (2.0-10.0); % NEUTROPHILS 65.9 % (40.0-80.0); HEMATOCRIT 34.1 % (35.0-45.0); HEMOGLOBIN 11.4 gm/dL (11.7-15.5); MEAN CELL VOLUME 88.6 fl (81-100); MEAN CORPUSCULAR HEMOGLOBIN 29.6 pg (27.0-31.0); MEAN CORPUSCULAR HGB CONC 33.5 pg (28.0-36.0); MEAN PLATELET VOLUME 9.3 fl; NEUTROPHILE ABSOLUTE 4.8 Th/cmm (1.8-8.0); PLATELET COUNT 142 Th/cmm (150-400); RED BLOOD COUNT 3.85 Mil/cmm (3.80-5.10); RED CELL DISTRIBUTION WIDTH 14.7 % (11.5-20.0); WHITE BLOOD COUNT 7.5 Th/cmm (4.8-10.8)
[2016-10-08 05:41] LABS: ANION GAP 8.8 (7.0-16.0); BUN - UREA NITROGEN 32 mg/dL (7-25); BUN/CREATININE RATIO 53.3; CALCIUM SERUM 9.9 mg/dL (8.6-10.3); CARBON DIOXIDE 31.3 mEq/L (21.0-31.0); CHLORIDE 102 mEq/L (98-107); CREATININE - SERUM 0.6 mg/dL (0.6-1.2); GLUCOSE 409 mg/dL (70-105); POTASSIUM SERUM 4.1 mEq/L (3.5-5.1); SODIUM SERUM 138 mEq/L (136-145)
[2016-10-08] MEDS: INSULIN ASPART, RECOMBINANT 100 UNITS/ML SUBQ SCH ×4 (06:32→20:59)
[2016-10-08] MEDS: NYSTATIN 100000 UNITS/GM POWD TP SCH ×2 (08:00→18:00)
--- NOTE | 2016-10-08 09:17 | Diagnostic Imaging Report ---
CHEST X-RAY: AP view INDICATION: Shortness of breath COMPARISON: Chest x-ray 10/06/[address] chest on 09/26/2016 FINDINGS: Exam is limited due to patient body habitus and rotation. Right subclavian central line is stable. Persistent volume loss of the left lung is seen with left lung opacity. There is a hiatal hernia. IMPRESSION: Persistent volume loss of the left lung with left lung opacity which may be due to combination of left effusion and atelectasis/pneumonia. Hiatal hernia is again noted into the left hemithorax as demonstrated on previous CT examination on 09/26/2016.
[2016-10-08] MEDS: Multivitamin w/ Minerals Tab GT SCH (09:47)
[2016-10-08] MEDS: Metoclopramide 5 mg/mL 2mL Vial IVP SCH ×3 (09:48→20:58)
[2016-10-08] MEDS: Lactobacillus Rhamnosus 10 Billion CFU Capsule PO SCH (09:49)
[2016-10-08] MEDS: Lactulose 10 Gm/15 mL 30mL UDC GT SCH (09:49)
[2016-10-08] MEDS: Vitamin A/Vitamin D 5 gm Packet TP SCH (09:53)
--- NOTE | 2016-10-08 09:58 | General Progress Note ---
Subjective - Review of Systems Service Date: 10/08/16 Events since last encounter: discharged will remove cristino in 14 days post op Subjective: VS stable urine output adequate extubated, on air O2 sat ok Hb 7.8 gm, might need PRBC dressings dry Objective - Results Result Diagrams: 10/08/16 04:50 10/08/16 04:50 Recent Labs: Laboratory Last Values WBC 7.5 Th/cmm (4.8-10.8) 10/08/16 04:50 RBC 3.85 Mil/cmm (3.80-5.10) 10/08/16 04:50 Hgb 11.4 gm/dL (11.7-15.5) L 10/08/16 04:50 Hct 34.1 % (35.0-45.0) L 10/08/16 04:50 MCV 88.6 fl (81-100) 10/08/16 04:50 MCH 29.6 pg (27.0-31.0) 10/08/16 04:50 MCHC Differential 33.5 pg (28.0-36.0) 10/08/16 04:50 RDW 14.7 % (11.5-20.0) 10/08/16 04:50 Plt Count 142 Th/cmm (150-400) L 10/08/16 04:50 MPV 9.3 fl 10/08/16 04:50 Neutrophils % 65.9 % (40.0-80.0) 10/08/16 04:50 Band Neutrophils % 6 % (0-10) 10/06/16 04:50 Lymphocytes % 15.7 % (20.0-50.0) L 10/08/16 04:50 Monocytes % 8.8 % (2.0-10.0) 10/08/16 04:50 Eosinophils % 8.9 % (0.0-5.0) H 10/08/16 04:50 Basophils % 0.7 % (0.0-2.0) 10/08/16 04:50 Neutrophils (Manual) 63 % (40-80) 10/06/16 04:50 Lymphocytes 15 % (20-50) L 10/06/16 04:50 Monocytes 9 % (2-10) 10/06/16 04:50 Eosinophils 6 % (0-5) H 10/06/16 04:50 Basophils 1 % (0-3) 10/06/16 04:50 Platelet Estimate DECREASED PLATELETS (NORMAL) 10/06/16 04:50 Platelet Morphology NORMAL (NORMAL) 10/06/16 04:50 Polychromasia 1+ 09/22/16 04:49 Anisocytosis 1+ 10/06/16 04:50 RBC Morph Micro Appear ABNORMAL (NORMAL) 10/06/16 04:50 PT 10.3 SECONDS (9.5-11.5) 10/03/16 04:45 INR 0.99 (0.5-1.4) 10/03/16 04:45 PTT (Actin FS) 26.3 SECONDS (26.0-38.0) 10/03/16 04:45 Sodium 138 mEq/L (136-145) 10/08/16 04:50 Potassium 4.1 mEq/L (3.5-5.1) 10/08/16 04:50 Chloride 102 mEq/L (98-107) 10/08/16 04:50 Carbon Dioxide 31.3 mEq/L (21.0-31.0) H 10/08/16 04:50 Anion Gap 8.8 (7.0-16.0) 10/08/16 04:50 BUN 32 mg/dL (7-25) H 10/08/16 04:50 Creatinine 0.6 mg/dL (0.6-1.2) 10/08/16 04:50 Est GFR ( Amer) > 60.0 ml/min (>90) 10/08/16 04:50 Est GFR (Non-Af Amer) > 60.0 ml/min 10/08/16 04:50 BUN/Creatinine Ratio 53.3 10/08/16 04:50 Glucose 409 mg/dL (70-105) H 10/08/16 04:50 POC Glucose 408 MG/DL (70 - 105) H 10/08/16 06:29 Hemoglobin A1c % 6.5 % (4.0-6.0) H 09/21/16 09:13 Whole Bld Lactic Acid 0.96 mmol/L (0.60-2.00) 09/21/16 22:05 Calcium 9.9 mg/dL (8.6-10.3) 10/08/16 04:50 Magnesium 2.0 mg/dL (1.9-2.7) 10/07/16 04:40 Total Bilirubin 0.4 mg/dL (0.3-1.0) 10/05/16 06:10 Direct Bilirubin 0.07 mg/dL (0.0-0.2) 09/27/16 04:56 AST 21 U/L (13-39) 10/05/16 06:10 ALT 17 U/L (7-52) 10/05/16 06:10 Alkaline Phosphatase 113 U/L (34-104) H 10/05/16 06:10 Ammonia 52 umol/L (16-53) 10/03/16 04:45 Troponin I 0.79 ng/mL (0.01-0.05) H* D 09/21/16 22:05 B-Natriuretic Peptide 64.0 pg/mL (5.0-100.0) 10/03/16 04:45 Total Protein 5.9 gm/dL (6.0-8.3) L 10/05/16 06:10 Albumin 2.4 gm/dL (3.7-5.3) L 10/05/16 06:10 Globulin 3.5 gm/dL 10/05/16 06:10 Albumin/Globulin Ratio 0.7 (1.0-1.8) L 10/05/16 06:10 Urine Source CATH 10/01/16 09:30 Urine Color YELLOW 10/01/16 09:30 Urine Clarity SL. CLOUDY (CLEAR) 10/01/16 09:30 Urine pH 7.5 10/01/16 09:30 Ur Specific Tranquillity 1.020 (1.005-1.030) 10/01/16 09:30 Urine Protein 100 mg/dL (NEGATIVE) H 10/01/16 09:30 Urine Glucose (UA) NEGATIVE mg/dL (NEGATIVE) 10/01/16 09:30 Urine Ketones NEGATIVE mg/dL (NEGATIVE) 10/01/16 09:30 Urine Blood SMALL (NEGATIVE) H 10/01/16 09:30 Urine Nitrate NEGATIVE (NEGATIVE) 10/01/16 09:30 Urine Bilirubin NEGATIVE (NEGATIVE) 10/01/16 09:30 Urine Urobilinogen 0.2 E.U./dL (0.2 - 1.0) 10/01/16 09:30 Ur Leukocyte Esterase SMALL (NEGATIVE) H 10/01/16 09:30 Urine RBC 5-10 /hpf (0-5) H 10/01/16 09:30 Urine WBC 25-50 /hpf (0-5) H 10/01/16 09:30 Ur Epithelial Cells OCCASIONAL /lpf (FEW) 10/01/16 09:30 Urine Bacteria FEW /hpf (NONE SEEN) 10/01/16 09:30 Amikacin Peak 6.0 ug/mL (20.0-30.0) L 10/03/16 09:30 Amikacin Trough 6.8 ug/mL (1.0-8.0) 10/03/16 08:05 Vancomycin Trough 20.4 ug/mL (10-20) H 09/23/16 16:20 Digoxin 2.3 ng/ml (0.8-2.0) H 09/29/16 07:55 Blood Type O POSITIVE 10/06/16 09:45 Antibody Screen NEGATIVE 10/06/16 09:45 Crossmatch See Detail 10/06/16 09:45 - Physical Exam Vitals and I&O: Vital Signs Temp 98 F 10/08/16 06:00 Pulse 110 10/08/16 07:50 Resp 18 10/08/16 07:50 BP 100/57 10/08/16 06:00 Pulse Ox 100 10/08/16 07:50 Intake & Output 10/07/16 10/08/16 10/08/16 18:59 06:59 18:59 Intake Total 870 870 Output Total 2200 Balance 870 -1330 Intake: Oral 0 Tube Feeding 720 720 Other 150 150 Output: Urine 2200 Other: # Bowel Movements 0 Active Medications: Current Medications Acetaminophen (Tylenol 650mg/20.3ml Suspension) 650 mg GT Q4H PRN PRN Reason: MILD PAIN AND FEVER >101 Stop: 11/20/16 12:41 Last Admin: 10/05/16 05:59 Dose: 650 mg Acetylcysteine (Mucomyst 20%) 3 ml HHN Q4HR [facility] Stop: 11/24/16 15:59 Last Admin: 10/08/16 07:49 Dose: 3 ml Albuterol Sulfate (Albuterol 2.5mg/3ml Neb Ud) 2.5 mg HHN Q4HRT [facility] Stop: 11/25/16 10:59 Last Admin: 10/08/16 07:49 Dose: 2.5 mg Ascorbic Acid (Vitamin C) 500 mg GT DAILY [facility] Stop: 11/21/16 08:59 Last Admin: 10/08/16 09:46 Dose: 500 mg Atorvastatin Calcium (Lipitor) 40 mg PO HS [facility] Stop: 12/07/16 20:59 Dextrose (D50w) 50 ml IVP PRN PRN PRN Reason: blood sugar < 60 Stop: 11/25/16 21:35 Last Admin: 09/27/16 21:49 Dose: 50 ml Diltiazem HCl (Cardizem) 20 mg IVP Q4H PRN PRN Reason: HR Greater than 130 per min Stop: 11/20/16 12:45 Last Admin: 09/28/16 08:05 Dose: 20 mg Folic Acid (Folate) 1 mg GT DAILY [facility] Stop: 11/21/16 08:59 Last Admin: 10/08/16 09:50 Dose: 1 mg Guaifenesin (Robitussin) 200 mg GT Q4HR PRN PRN Reason: Cough or Congestion Stop: 11/20/16 12:41 Last Admin: 10/07/16 12:59 Dose: 200 mg Hydromorphone HCl (Dilaudid) 0.5 mg IVP Q4HR PRN PRN Reason: pain Stop: 11/26/16 19:54 Last Admin: 10/08/16 00:19 Dose: 0.5 mg Norepinephrine Bitartrate 4 mg (/ Dextrose) 254 mls @ 38.1 mls/hr IV TITR PRN; Protocol; 10 MCG/MIN PRN Reason: BP MAINTENANCE (PER PROTOCOL) Stop: 11/20/16 23:39 Last Admin: 09/28/16 12:18 Dose: 4 mcg/min, 15.24 mls/hr Dextrose (D5w) 1,000 mls @ 10 mls/hr IV .Q24H [facility] Stop: 11/30/16 08:24 Last Admin: 10/04/16 19:08 Dose: 10 mls/hr Amikacin Sulfate 350 mg/ (Dextrose) 101.4 mls @ 200 mls/hr IV Q24HR@0900 [facility] Stop: 11/30/16 14:59 Last Admin: 10/07/16 08:36 Dose: 100 mls/hr Fluconazole (Diflucan) 200 mg in 100 mls @ 100 mls/hr IV Q24HR [facility] Stop: 12/04/16 13:59 Last Admin: 10/07/16 14:17 Dose: 100 mls/hr Insulin Aspart (Novolog) 0 units SUBQ ACHS [facility] PRN Reason: Protocol Stop: 11/20/16 16:29 Last Admin: 10/08/16 06:32 Dose: 10 units Ipratropium Eliot (Atrovent Neb 0.5mg/2.5ml) 0.5 mg HHN Q4HRT [facility] Stop: 11/25/16 10:59 Last Admin: 10/08/16 07:49 Dose: 0.5 mg Lactobacillus Rhamnosus (Culturelle) 1 each PO DAILY [facility] Stop: 11/24/16 08:59 Last Admin: 10/08/16 09:49 Dose: 1 each Lactulose (Cephulac) 20 gm GT DAILY [facility] Stop: 11/27/16 08:59 Last Admin: 10/08/16 09:49 Dose: 20 gm Loperamide HCl (Imodium) 2 mg GT Q4H PRN PRN Reason: DIARRHEA Stop: 11/20/16 15:12 Magnesium Hydroxide (Milk Of Magnesia) 30 ml GT DAILY PRN PRN Reason: Constipation Stop: 11/20/16 12:41 Metoclopramide HCl (Reglan) 5 mg IVP TID [facility] Stop: 11/29/16 13:59 Last Admin: 10/08/16 09:48 Dose: 5 mg Miscellaneous (Probiotic Screen) 1 ea MC PRN PRN PRN Reason: PROTOCOL Stop: 11/24/16 08:48 Miscellaneous (Clinical Monitoring) 1 ea PRN PRN PRN Reason: XARELTO Stop: 11/28/16 11:19 Miscellaneous (Amikacin Iv Per Pharmacy) 1 ea MC PRN PRN PRN Reason: PROTOCOL Stop: 11/30/16 13:40 Nystatin (Nystop) 100,000 units TP BID [facility] Stop: 11/21/16 08:59 Last Admin: 10/07/16 08:19 Dose: 100,000 units Ondansetron HCl (Zofran) 4 mg IV Q8H PRN PRN Reason: Nausea / Vomiting Stop: 11/20/16 12:45 Rivaroxaban (Xarelto) 10 mg GT DAILY [facility] Stop: 11/21/16 10:59 Last Admin: 10/08/16 09:47 Dose: 10 mg Vitamin A (Vitamin A & D) 5 gm TP DAILY [facility] Stop: 11/21/16 14:59 Last Admin: 10/08/16 09:53 Dose: 5 gm Zinc Sulfate (Zinc Sulfate) 220 mg GT DAILY [facility] Stop: 11/21/16 08:59 Last Admin: 10/08/16 09:46 Dose: 220 mg - Procedures Procedures: Procedures Procedure Code Date BLOOD TRANSFUSION SERVICE 46022 03/06/16 BYPASS DESCENDING COLON TO CUTANEOUS, OPEN APPROACH [id number] 09/21/16 CHANGE GASTROSTOMY TUBE 07597 06/09/14 COLOSTOMY 98380 09/21/16 AGNIESZKA BONE 20 SQ CM/< 42892 01/28/15 DIAGNOSTIC COLONOSCOPY 56690 03/06/16 EGD BIOPSY SINGLE/MULTIPLE 88956 03/06/16 EXCISION OF DUODENUM, ENDO, DIAGN [id number] 03/06/16 EXCISION OF SACRUM, OPEN APPROACH [id number] 09/21/16 EXCISION OF STOMACH, ENDO, DIAGN [id number] 03/06/16 IMMOBILIZ/WOUND ATTN NEC 93.59 01/28/15 INSERT INDWELLING CATH 57.94 10/18/05 INSERT TEMP BLADDER CATH 79777 10/18/05 INSPECTION OF LOWER INTESTINAL TRACT, ENDO [id number] 03/06/16 INSPECTION OF UPPER INTESTINAL TRACT, ENDO [id number] 10/27/15 LOC EXC BONE LESION NEC 77.69 01/28/15 PACKED CELL TRANSFUSION 99.04 10/20/14 REMOVAL OF PRESSURE SORE 27312 09/21/16 REPLACE GASTROSTOMY TUBE 97.02 06/09/14 RESPIRATORY VENTILATION, LESS THAN 24 CONSECUTIVE HOURS [id number] 09/21/16 TRANSFUSE NONAUT RED BLOOD CELLS IN PERIPH VEIN, PERC [id number] 06/16/16 VENT MGMT INPAT IN DAY 47287 09/21/16 Assessment/Plan - Problem List Patient Problems: All Active Problems HYPOTENSION WITH TACHYCARDIA AND CONGEST (Acute) Anemia (Acute 03/06/16) D64.9 Dyspnea (Acute) R06.00 Fever, unspecified (Acute) R50.9 Hyperglycemia (Acute) R73.9 Hyperosmolality and/or hypernatremia (Acute) E87.0 Mental retardation (Acute) F79 Other abnormal clinical finding (Acute) R68.89 Pneumonia (Acute) J18.9 Staphylococcal sepsis (Acute) Uncontrolled diabetes mellitus (Acute) E11.65 Urinary tract infection (Acute) Nutritional Asmnt/Malnutr-PDOC - Dietary Evaluation Malnutrition Findings (Please click <Entered> for more info): Nutritional Asmnt/Malnutrition Start: 09/22/16 12: 31 Text: Status: Complete Freq: Document 09/22/16 12:32 GSUN (Rec: 09/22/16 13:00 GSUN MARION-FN) Nutritional Asmnt/Malnutrition Patient General Information Nutritional Screening High Risk Screening Diagnosis Per ER: sepsis, UTI, HTN, possible PNA, elevated troponin Pertinent Medical Hx/Surgical Hx Per ER: HTN, DM, dyslipidemia, anemia, 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 RD consult for decubitus ulcer and trigger for BG >180. Discussed with RN regarding tube feeding regimens when tube feeding resumed. Unable to obtain new weight due to bedscale not properly calibrated. Current Diet Order/ Nutrition Support NPO Pertinent Medications Vitamin C, lipitor, D5, folate , novolog, novolin, cephulac, MOM, zofran, vancomycin, vitamin A and D, zinc sulfate Pertinent Labs 09/21: BUN 112H, creatinine 1. 6H, glucose 263H, A1c 6.5H, troponin 1.96H 09/22: Potassium 2.8L, BUN 74H (improving), creatinine 1.1 ( improved), glucose 278H POC glucose 58-303H Nutritional Hx/Data Height 1.45 m Height (Calculated Centimeters) 144.8 Current Weight (lbs) 43.998 kg Weight (Calculated Kilograms) 44.0 Weight (Calculated Grams) 63261.5 Weight Status Approriate GI Symptoms Food Allergies No Cultural/Ethnic/Amish Belief Unknown. Usual diet at home [facility]: glucerna 1.2 at 60ml/hr x 20hrs with 200ml flush Q4hrs Skin Integrity/Comment: grade checker: ulceration sacrum, right tow, right foot, left foot Estimated Nutritional Goals BEE in Kcals: Using Current wt Calories/Kcals/Kg 30-35kcal/kg Kcals Calculated 1320-1544kcal Protein: Using Current wt Protein g/k.5-1.7g/kg Protein Calculated 66-75g Fluid: ml 1320-1544ml (1ml/kcal) Nutritional Problem 2. Problem Problem Altered nutrition related laboratory values related to Etiology DM aeb Signs/Symptoms: episodes of hypoglycemia and hyperglycemia, 58L and 303H 1. Problem Problem Increased protein and kcal needs related to Etiology hypermetabolic state aeb Signs/Symptoms: sepsis, possible PNA, mulitple ulcerations Intervention/Recommendation Comments 1. Recommend Diabetisource 50ml/hr x 24hrs, providing 1440kcal and 72g protein, for glycemic control and to better meet nutritional needs. 2. Recommend 1 packet Arginaid BID via g-tube for multiple ulcerations wound healing. 3. If episodes of hypoglycemia persists, consider without carbohydrate restriction with Fibersource HN at 50ml/hrs x 24hrs. Expected Outcomes/Goals Expected Outcomes/Goals 1. Pt to meet 100% of estimated nutritional needs on tube feeding + Arginaid with tolerance. Physician Parameters for PEM Serum Albumin (g/dl) 3.5 - 5.0 (Normal)
--- NOTE | 2016-10-08 10:14 | General Progress Note ---
Subjective - Review of Systems Service Date: 10/08/16 Events since last encounter: previous progress note on wrong patient VS stable, taking GT feedings welll minimal colostomy output incision redressed, healing well Subjective: VS stable urine output adequate extubated, on air O2 sat ok Hb 7.8 gm, might need PRBC dressings dry Objective - Results Result Diagrams: 10/08/16 04:50 10/08/16 04:50 Recent Labs: Laboratory Last Values WBC 7.5 Th/cmm (4.8-10.8) 10/08/16 04:50 RBC 3.85 Mil/cmm (3.80-5.10) 10/08/16 04:50 Hgb 11.4 gm/dL (11.7-15.5) L 10/08/16 04:50 Hct 34.1 % (35.0-45.0) L 10/08/16 04:50 MCV 88.6 fl (81-100) 10/08/16 04:50 MCH 29.6 pg (27.0-31.0) 10/08/16 04:50 MCHC Differential 33.5 pg (28.0-36.0) 10/08/16 04:50 RDW 14.7 % (11.5-20.0) 10/08/16 04:50 Plt Count 142 Th/cmm (150-400) L 10/08/16 04:50 MPV 9.3 fl 10/08/16 04:50 Neutrophils % 65.9 % (40.0-80.0) 10/08/16 04:50 Band Neutrophils % 6 % (0-10) 10/06/16 04:50 Lymphocytes % 15.7 % (20.0-50.0) L 10/08/16 04:50 Monocytes % 8.8 % (2.0-10.0) 10/08/16 04:50 Eosinophils % 8.9 % (0.0-5.0) H 10/08/16 04:50 Basophils % 0.7 % (0.0-2.0) 10/08/16 04:50 Neutrophils (Manual) 63 % (40-80) 10/06/16 04:50 Lymphocytes 15 % (20-50) L 10/06/16 04:50 Monocytes 9 % (2-10) 10/06/16 04:50 Eosinophils 6 % (0-5) H 10/06/16 04:50 Basophils 1 % (0-3) 10/06/16 04:50 Platelet Estimate DECREASED PLATELETS (NORMAL) 10/06/16 04:50 Platelet Morphology NORMAL (NORMAL) 10/06/16 04:50 Polychromasia 1+ 09/22/16 04:49 Anisocytosis 1+ 10/06/16 04:50 RBC Morph Micro Appear ABNORMAL (NORMAL) 10/06/16 04:50 PT 10.3 SECONDS (9.5-11.5) 10/03/16 04:45 INR 0.99 (0.5-1.4) 10/03/16 04:45 PTT (Actin FS) 26.3 SECONDS (26.0-38.0) 10/03/16 04:45 Sodium 138 mEq/L (136-145) 10/08/16 04:50 Potassium 4.1 mEq/L (3.5-5.1) 10/08/16 04:50 Chloride 102 mEq/L (98-107) 10/08/16 04:50 Carbon Dioxide 31.3 mEq/L (21.0-31.0) H 10/08/16 04:50 Anion Gap 8.8 (7.0-16.0) 10/08/16 04:50 BUN 32 mg/dL (7-25) H 10/08/16 04:50 Creatinine 0.6 mg/dL (0.6-1.2) 10/08/16 04:50 Est GFR ( Amer) > 60.0 ml/min (>90) 10/08/16 04:50 Est GFR (Non-Af Amer) > 60.0 ml/min 10/08/16 04:50 BUN/Creatinine Ratio 53.3 10/08/16 04:50 Glucose 409 mg/dL (70-105) H 10/08/16 04:50 POC Glucose 408 MG/DL (70 - 105) H 10/08/16 06:29 Hemoglobin A1c % 6.5 % (4.0-6.0) H 09/21/16 09:13 Whole Bld Lactic Acid 0.96 mmol/L (0.60-2.00) 09/21/16 22:05 Calcium 9.9 mg/dL (8.6-10.3) 10/08/16 04:50 Magnesium 2.0 mg/dL (1.9-2.7) 10/07/16 04:40 Total Bilirubin 0.4 mg/dL (0.3-1.0) 10/05/16 06:10 Direct Bilirubin 0.07 mg/dL (0.0-0.2) 09/27/16 04:56 AST 21 U/L (13-39) 10/05/16 06:10 ALT 17 U/L (7-52) 10/05/16 06:10 Alkaline Phosphatase 113 U/L (34-104) H 10/05/16 06:10 Ammonia 52 umol/L (16-53) 10/03/16 04:45 Troponin I 0.79 ng/mL (0.01-0.05) H* D 09/21/16 22:05 B-Natriuretic Peptide 64.0 pg/mL (5.0-100.0) 10/03/16 04:45 Total Protein 5.9 gm/dL (6.0-8.3) L 10/05/16 06:10 Albumin 2.4 gm/dL (3.7-5.3) L 10/05/16 06:10 Globulin 3.5 gm/dL 10/05/16 06:10 Albumin/Globulin Ratio 0.7 (1.0-1.8) L 10/05/16 06:10 Urine Source CATH 10/01/16 09:30 Urine Color YELLOW 10/01/16 09:30 Urine Clarity SL. CLOUDY (CLEAR) 10/01/16 09:30 Urine pH 7.5 10/01/16 09:30 Ur Specific [place] 1.020 (1.005-1.030) 10/01/16 09:30 Urine Protein 100 mg/dL (NEGATIVE) H 10/01/16 09:30 Urine Glucose (UA) NEGATIVE mg/dL (NEGATIVE) 10/01/16 09:30 Urine Ketones NEGATIVE mg/dL (NEGATIVE) 10/01/16 09:30 Urine Blood SMALL (NEGATIVE) H 10/01/16 09:30 Urine Nitrate NEGATIVE (NEGATIVE) 10/01/16 09:30 Urine Bilirubin NEGATIVE (NEGATIVE) 10/01/16 09:30 Urine Urobilinogen 0.2 E.U./dL (0.2 - 1.0) 10/01/16 09:30 Ur Leukocyte Esterase SMALL (NEGATIVE) H 10/01/16 09:30 Urine RBC 5-10 /hpf (0-5) H 10/01/16 09:30 Urine WBC 25-50 /hpf (0-5) H 10/01/16 09:30 Ur Epithelial Cells OCCASIONAL /lpf (FEW) 10/01/16 09:30 Urine Bacteria FEW /hpf (NONE SEEN) 10/01/16 09:30 Amikacin Peak 6.0 ug/mL (20.0-30.0) L 10/03/16 09:30 Amikacin Trough 6.8 ug/mL (1.0-8.0) 10/03/16 08:05 Vancomycin Trough 20.4 ug/mL (10-20) H 09/23/16 16:20 Digoxin 2.3 ng/ml (0.8-2.0) H 09/29/16 07:55 Blood Type O POSITIVE 10/06/16 09:45 Antibody Screen NEGATIVE 10/06/16 09:45 Crossmatch See Detail 10/06/16 09:45 - Physical Exam Vitals and I&O: Vital Signs Temp 98 F 10/08/16 06:00 Pulse 110 10/08/16 07:50 Resp 18 10/08/16 07:50 BP 100/57 10/08/16 06:00 Pulse Ox 100 10/08/16 07:50 Intake & Output 10/07/16 10/08/16 10/08/16 18:59 06:59 18:59 Intake Total 870 870 Output Total 2200 Balance 870 -1330 Intake: Oral 0 Tube Feeding 720 720 Other 150 150 Output: Urine 2200 Other: # Bowel Movements 0 Active Medications: Current Medications Acetaminophen (Tylenol 650mg/20.3ml Suspension) 650 mg GT Q4H PRN PRN Reason: MILD PAIN AND FEVER >101 Stop: 11/20/16 12:41 Last Admin: 10/05/16 05:59 Dose: 650 mg Acetylcysteine (Mucomyst 20%) 3 ml HHN Q4HR CHING Stop: 11/24/16 15:59 Last Admin: 10/08/16 07:49 Dose: 3 ml Albuterol Sulfate (Albuterol 2.5mg/3ml Neb Ud) 2.5 mg HHN Q4HRT CHING Stop: 11/25/16 10:59 Last Admin: 10/08/16 07:49 Dose: 2.5 mg Ascorbic Acid (Vitamin C) 500 mg GT DAILY REPLACED BY [facility] Stop: 11/21/16 08:59 Last Admin: 10/08/16 09:46 Dose: 500 mg Atorvastatin Calcium (Lipitor) 40 mg PO HS REPLACED BY [facility] Stop: 12/07/16 20:59 Dextrose (D50w) 50 ml IVP PRN PRN PRN Reason: blood sugar < 60 Stop: 11/25/16 21:35 Last Admin: 09/27/16 21:49 Dose: 50 ml Diltiazem HCl (Cardizem) 20 mg IVP Q4H PRN PRN Reason: HR Greater than 130 per min Stop: 11/20/16 12:45 Last Admin: 09/28/16 08:05 Dose: 20 mg Folic Acid (Folate) 1 mg GT DAILY REPLACED BY [facility] Stop: 11/21/16 08:59 Last Admin: 10/08/16 09:50 Dose: 1 mg Guaifenesin (Robitussin) 200 mg GT Q4HR PRN PRN Reason: Cough or Congestion Stop: 11/20/16 12:41 Last Admin: 10/07/16 12:59 Dose: 200 mg Hydromorphone HCl (Dilaudid) 0.5 mg IVP Q4HR PRN PRN Reason: pain Stop: 11/26/16 19:54 Last Admin: 10/08/16 00:19 Dose: 0.5 mg Norepinephrine Bitartrate 4 mg (/ Dextrose) 254 mls @ 38.1 mls/hr IV TITR PRN; Protocol; 10 MCG/MIN PRN Reason: BP MAINTENANCE (PER PROTOCOL) Stop: 11/20/16 23:39 Last Admin: 09/28/16 12:18 Dose: 4 mcg/min, 15.24 mls/hr Dextrose (D5w) 1,000 mls @ 10 mls/hr IV .Q24H REPLACED BY [facility] Stop: 11/30/16 08:24 Last Admin: 10/04/16 19:08 Dose: 10 mls/hr Amikacin Sulfate 350 mg/ (Dextrose) 101.4 mls @ 200 mls/hr IV Q24HR@0900 REPLACED BY [facility] Stop: 11/30/16 14:59 Last Admin: 10/07/16 08:36 Dose: 100 mls/hr Fluconazole (Diflucan) 200 mg in 100 mls @ 100 mls/hr IV Q24HR CHING Stop: 12/04/16 13:59 Last Admin: 10/07/16 14:17 Dose: 100 mls/hr Insulin Aspart (Novolog) 0 units SUBQ ACHS CHING PRN Reason: Protocol Stop: 11/20/16 16:29 Last Admin: 10/08/16 06:32 Dose: 10 units Ipratropium [place] (Atrovent Neb 0.5mg/2.5ml) 0.5 mg HHN Q4HRT CHING Stop: 11/25/16 10:59 Last Admin: 10/08/16 07:49 Dose: 0.5 mg Lactobacillus Rhamnosus (Culturelle) 1 each PO DAILY REPLACED BY [facility] Stop: 11/24/16 08:59 Last Admin: 10/08/16 09:49 Dose: 1 each Lactulose (Cephulac) 20 gm GT DAILY [facility]ING Stop: 11/27/16 08:59 Last Admin: 10/08/16 09:49 Dose: 20 gm Loperamide HCl (Imodium) 2 mg GT Q4H PRN PRN Reason: DIARRHEA Stop: 11/20/16 15:12 Magnesium Hydroxide (Milk Of Magnesia) 30 ml GT DAILY PRN PRN Reason: Constipation Stop: 11/20/16 12:41 Metoclopramide HCl (Reglan) 5 mg IVP TID REPLACED BY [facility] Stop: 11/29/16 13:59 Last Admin: 10/08/16 09:48 Dose: 5 mg Miscellaneous (Probiotic Screen) 1 ea PRN PRN PRN Reason: PROTOCOL Stop: 11/24/16 08:48 Miscellaneous (Clinical Monitoring) 1 ea PRN PRN PRN Reason: XARELTO Stop: 11/28/16 11:19 Miscellaneous (Amikacin Iv Per Pharmacy) 1 ea PRN PRN PRN Reason: PROTOCOL Stop: 11/30/16 13:40 Nystatin (Nystop) 100,000 units TP BID REPLACED BY [facility] Stop: 11/21/16 08:59 Last Admin: 10/07/16 08:19 Dose: 100,000 units Ondansetron HCl (Zofran) 4 mg IV Q8H PRN PRN Reason: Nausea / Vomiting Stop: 11/20/16 12:45 Rivaroxaban (Xarelto) 10 mg GT DAILY REPLACED BY [facility] Stop: 11/21/16 10:59 Last Admin: 10/08/16 09:47 Dose: 10 mg Vitamin A (Vitamin A & D) 5 gm TP DAILY REPLACED BY [facility] Stop: 11/21/16 14:59 Last Admin: 10/08/16 09:53 Dose: 5 gm Zinc Sulfate (Zinc Sulfate) 220 mg GT DAILY REPLACED BY [facility] Stop: 11/21/16 08:59 Last Admin: 10/08/16 09:46 Dose: 220 mg - Procedures Procedures: Procedures Procedure Code Date BLOOD TRANSFUSION SERVICE 82003 03/06/16 BYPASS DESCENDING COLON TO CUTANEOUS, OPEN APPROACH [id number] 09/21/16 CHANGE GASTROSTOMY TUBE 57501 06/09/14 COLOSTOMY 58202 09/21/16 AGNIESZKA BONE 20 SQ CM/< 35046 01/28/15 DIAGNOSTIC COLONOSCOPY 13645 03/06/16 EGD BIOPSY SINGLE/MULTIPLE 51890 03/06/16 EXCISION OF DUODENUM, ENDO, DIAGN [id number] 03/06/16 EXCISION OF SACRUM, OPEN APPROACH [id number] 09/21/16 EXCISION OF STOMACH, ENDO, DIAGN [id number] 03/06/16 IMMOBILIZ/WOUND ATTN NEC 93.59 01/28/15 INSERT INDWELLING CATH 57.94 10/18/05 INSERT TEMP BLADDER CATH 69563 10/18/05 INSPECTION OF LOWER INTESTINAL TRACT, ENDO [id number] 03/06/16 INSPECTION OF UPPER INTESTINAL TRACT, ENDO [id number] 10/27/15 LOC EXC BONE LESION NEC 77.69 01/28/15 PACKED CELL TRANSFUSION 99.04 10/20/14 REMOVAL OF PRESSURE SORE 47133 09/21/16 REPLACE GASTROSTOMY TUBE 97.02 06/09/14 RESPIRATORY VENTILATION, LESS THAN 24 CONSECUTIVE HOURS [id number] 09/21/16 TRANSFUSE NONAUT RED BLOOD CELLS IN PERIPH VEIN, PERC [id number] 06/16/16 VENT MGMT INPAT IN DAY 42155 09/21/16 Assessment/Plan - Problem List Patient Problems: All Active Problems HYPOTENSION WITH TACHYCARDIA AND CONGEST (Acute) Anemia (Acute 03/06/16) D64.9 Dyspnea (Acute) R06.00 Fever, unspecified (Acute) R50.9 Hyperglycemia (Acute) R73.9 Hyperosmolality and/or hypernatremia (Acute) E87.0 Mental retardation (Acute) F79 Other abnormal clinical finding (Acute) R68.89 Pneumonia (Acute) J18.9 Staphylococcal sepsis (Acute) Uncontrolled diabetes mellitus (Acute) E11.65 Urinary tract infection (Acute) Nutritional Asmnt/Malnutr-PDOC - Dietary Evaluation Malnutrition Findings (Please click <Entered> for more info): Nutritional Asmnt/Malnutrition Start: 09/22/16 12: 31 Text: Status: Complete Freq: Document 09/22/16 12:32 GSUN (Rec: 09/22/16 13:00 GSUN [email or web address]) Nutritional Asmnt/Malnutrition Patient General Information Nutritional Screening High Risk Screening Diagnosis Per ER: sepsis, UTI, HTN, possible PNA, elevated troponin Pertinent Medical Hx/Surgical Hx Per ER: HTN, DM, dyslipidemia, anemia, 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 RD consult for decubitus ulcer and trigger for BG >180. Discussed with RN regarding tube feeding regimens when tube feeding resumed. Unable to obtain new weight due to bedscale not properly calibrated. Current Diet Order/ Nutrition Support NPO Pertinent Medications Vitamin C, lipitor, D5, folate , novolog, novolin, cephulac, MOM, zofran, vancomycin, vitamin A and D, zinc sulfate Pertinent Labs 09/21: BUN 112H, creatinine 1. 6H, glucose 263H, A1c 6.5H, troponin 1.96H 09/22: Potassium 2.8L, BUN 74H (improving), creatinine 1.1 ( improved), glucose 278H POC glucose 58-303H Nutritional Hx/Data Height 1.45 m Height (Calculated Centimeters) 144.8 Current Weight (lbs) 43.998 kg Weight (Calculated Kilograms) 44.0 Weight (Calculated Grams) 52821.5 Weight Status Approriate GI Symptoms Food Allergies No Cultural/Ethnic/Yarsanism Belief Unknown. Usual diet at home [place]: glucerna 1.2 at 60ml/hr x 20hrs with 200ml flush Q4hrs Skin Integrity/Comment: assessment analyst: ulceration sacrum, right tow, right foot, left foot Estimated Nutritional Goals BEE in Kcals: Using Current wt Calories/Kcals/Kg 30-35kcal/kg Kcals Calculated 1320-1544kcal Protein: Using Current wt Protein g/k.5-1.7g/kg Protein Calculated 66-75g Fluid: ml 1320-1544ml (1ml/kcal) Nutritional Problem 2. Problem Problem Altered nutrition related laboratory values related to Etiology DM aeb Signs/Symptoms: episodes of hypoglycemia and hyperglycemia, 58L and 303H 1. Problem Problem Increased protein and kcal needs related to Etiology hypermetabolic state aeb Signs/Symptoms: sepsis, possible PNA, mulitple ulcerations Intervention/Recommendation Comments 1. Recommend Diabetisource 50ml/hr x 24hrs, providing 1440kcal and 72g protein, for glycemic control and to better meet nutritional needs. 2. Recommend 1 packet Arginaid BID via g-tube for multiple ulcerations wound healing. 3. If episodes of hypoglycemia persists, consider without carbohydrate restriction with Fibersource HN at 50ml/hrs x 24hrs. Expected Outcomes/Goals Expected Outcomes/Goals 1. Pt to meet 100% of estimated nutritional needs on tube feeding + Arginaid with tolerance. Physician Parameters for PEM Serum Albumin (g/dl) 3.5 - 5.0 (Normal)
[2016-10-08] MEDS: Amikacin 500 mg in D5W 100mL (Q24HR) IV SCH (10:51)
[2016-10-08 14:00] LABS: HCO3 32.5 mEq/L (20.0-26.0); pH 7.43 (7.35-7.45)
[2016-10-08 14:01] LABS: ABG SOURCE Arterial; ALLEN TEST YES; FIO2 60; MECH RATE 12
[2016-10-08] MEDS: Fluconazole 200mg/100mL 200 MG/100 ML BAG IV SCH (14:06)
[2016-10-08] MEDS: INSULIN HUMAN ISOPHANE (NPH) 100 UNITS/ML SUBQ SCH (16:26)
[2016-10-08] MEDS: Dextrose 5% 1,000 ML IV SCH (20:24)
[2016-10-09] MEDS: HYDROmorphone 1 mg/mL 1mL Syr IVP PRN ×3 (01:05→12:39)
[2016-10-09] MEDS: Albuterol Nebulizer 2.5mg/3mL HHN SCH ×6 (04:12→22:42)
[2016-10-09] MEDS: Ipratropium Neb 0.5 mg/2.5 mL UD HHN SCH ×6 (04:12→22:43)
[2016-10-09 05:24] LABS: % BASOPHILS 0.3 % (0.0-2.0); % EOSINOPHILS 8.4 % (0.0-5.0); % LYMPHOCYTES 17.2 % (20.0-50.0); % MONOCYTES 8.3 % (2.0-10.0); % NEUTROPHILS 65.8 % (40.0-80.0); HEMATOCRIT 35.3 % (35.0-45.0); MEAN CELL VOLUME 87.8 fl (81-100); MEAN CORPUSCULAR HEMOGLOBIN 29.9 pg (27.0-31.0); MEAN CORPUSCULAR HGB CONC 34.1 pg (28.0-36.0); MEAN PLATELET VOLUME 9.6 fl; NEUTROPHILE ABSOLUTE 5.7 Th/cmm (1.8-8.0); PLATELET COUNT 159 Th/cmm (150-400); RED BLOOD COUNT 4.02 Mil/cmm (3.80-5.10); RED CELL DISTRIBUTION WIDTH 14.7 % (11.5-20.0); WHITE BLOOD COUNT 8.6 Th/cmm (4.8-10.8)
[2016-10-09 05:32] LABS: ANION GAP 9.4 (7.0-16.0); BUN - UREA NITROGEN 38 mg/dL (7-25); BUN/CREATININE RATIO 54.3; CALCIUM SERUM 10.1 mg/dL (8.6-10.3); CARBON DIOXIDE 30.5 mEq/L (21.0-31.0); CHLORIDE 102 mEq/L (98-107); CREATININE - SERUM 0.7 mg/dL (0.6-1.2); GLUCOSE 390 mg/dL (70-105); POTASSIUM SERUM 3.9 mEq/L (3.5-5.1); SODIUM SERUM 138 mEq/L (136-145)
[2016-10-09] MEDS: INSULIN ASPART, RECOMBINANT 100 UNITS/ML SUBQ SCH ×3 (07:00→16:07)
[2016-10-09] MEDS: INSULIN HUMAN ISOPHANE (NPH) 100 UNITS/ML SUBQ SCH ×2 (07:39→16:10)
[2016-10-09] MEDS: Multivitamin w/ Minerals Tab GT SCH (08:35)
[2016-10-09] MEDS: Metoclopramide 5 mg/mL 2mL Vial IVP SCH ×3 (08:36→20:50)
[2016-10-09] MEDS: Lactulose 10 Gm/15 mL 30mL UDC GT SCH (08:37)
[2016-10-09] MEDS: Lactobacillus Rhamnosus 10 Billion CFU Capsule PO SCH (08:37)
[2016-10-09] MEDS: NYSTATIN 100000 UNITS/GM POWD TP SCH ×2 (10:00→18:21)
[2016-10-09] MEDS: Vitamin A/Vitamin D 5 gm Packet TP SCH (10:04)
--- NOTE | 2016-10-09 11:56 | Internal Medicine Prog Note ---
Internal Medicine Subjective - Subjective Service Date: 10/09/16 (patient awake, nonverbal, on bipap, afebrile) Patient seen and examined:: with staff Patient is:: awake Per staff patient is:: no adverse event Internal Medicine Objective - Results Result Diagrams: 10/09/16 04:50 10/09/16 04:50 Recent Labs: Laboratory Last Values WBC 8.6 Th/cmm (4.8-10.8) 10/09/16 04:50 RBC 4.02 Mil/cmm (3.80-5.10) 10/09/16 04:50 Hgb 12.0 gm/dL (11.7-15.5) 10/09/16 04:50 Hct 35.3 % (35.0-45.0) 10/09/16 04:50 MCV 87.8 fl (81-100) 10/09/16 04:50 MCH 29.9 pg (27.0-31.0) 10/09/16 04:50 MCHC Differential 34.1 pg (28.0-36.0) 10/09/16 04:50 RDW 14.7 % (11.5-20.0) 10/09/16 04:50 Plt Count 159 Th/cmm (150-400) 10/09/16 04:50 MPV 9.6 fl 10/09/16 04:50 Neutrophils % 65.8 % (40.0-80.0) 10/09/16 04:50 Band Neutrophils % 6 % (0-10) 10/06/16 04:50 Lymphocytes % 17.2 % (20.0-50.0) L 10/09/16 04:50 Monocytes % 8.3 % (2.0-10.0) 10/09/16 04:50 Eosinophils % 8.4 % (0.0-5.0) H 10/09/16 04:50 Basophils % 0.3 % (0.0-2.0) 10/09/16 04:50 Neutrophils (Manual) 63 % (40-80) 10/06/16 04:50 Lymphocytes 15 % (20-50) L 10/06/16 04:50 Monocytes 9 % (2-10) 10/06/16 04:50 Eosinophils 6 % (0-5) H 10/06/16 04:50 Basophils 1 % (0-3) 10/06/16 04:50 Platelet Estimate DECREASED PLATELETS (NORMAL) 10/06/16 04:50 Platelet Morphology NORMAL (NORMAL) 10/06/16 04:50 Polychromasia 1+ 09/22/16 04:49 Anisocytosis 1+ 10/06/16 04:50 RBC Morph Micro Appear ABNORMAL (NORMAL) 10/06/16 04:50 PT 10.3 SECONDS (9.5-11.5) 10/03/16 04:45 INR 0.99 (0.5-1.4) 10/03/16 04:45 PTT (Actin FS) 26.3 SECONDS (26.0-38.0) 10/03/16 04:45 Specimen Source Arterial 10/08/16 13:40 Sample Site Left Radial 10/08/16 13:40 pH 7.43 (7.35-7.45) 10/08/16 13:40 pCO2 49.0 mmHg (35.0-45.0) H 10/08/16 13:40 pO2 154.0 mmHg (80.0-100.0) H 10/08/16 13:40 HCO3 32.5 mEq/L (20.0-26.0) H 10/08/16 13:40 Base Excess 7.0 mEq/L (-3.0-3.0) H 10/08/16 13:40 O2 Saturation 99.0 % (92.0-100.0) 10/08/16 13:40 Emmanuel Test YES 10/08/16 13:40 Vent Rate 12 10/08/16 13:40 Inspired O2 60 10/08/16 13:40 Tidal Volume NA 10/08/16 13:40 PEEP NA 10/08/16 13:40 Pressure (ins/psv/peep) NA 10/08/16 13:40 Critical Value E.MCARTHUR 10/08/16 13:40 Sodium 138 mEq/L (136-145) 10/09/16 04:50 Potassium 3.9 mEq/L (3.5-5.1) 10/09/16 04:50 Chloride 102 mEq/L (98-107) 10/09/16 04:50 Carbon Dioxide 30.5 mEq/L (21.0-31.0) 10/09/16 04:50 Anion Gap 9.4 (7.0-16.0) 10/09/16 04:50 BUN 38 mg/dL (7-25) H 10/09/16 04:50 Creatinine 0.7 mg/dL (0.6-1.2) 10/09/16 04:50 Est GFR ( Amer) > 60.0 ml/min (>90) 10/09/16 04:50 Est GFR (Non-Af Amer) > 60.0 ml/min 10/09/16 04:50 BUN/Creatinine Ratio 54.3 10/09/16 04:50 Glucose 390 mg/dL (70-105) H 10/09/16 04:50 POC Glucose 330 MG/DL (70 - 105) H 10/09/16 11:39 Hemoglobin A1c % 6.5 % (4.0-6.0) H 09/21/16 09:13 Whole Bld Lactic Acid 0.96 mmol/L (0.60-2.00) 09/21/16 22:05 Calcium 10.1 mg/dL (8.6-10.3) 10/09/16 04:50 Magnesium 2.0 mg/dL (1.9-2.7) 10/07/16 04:40 Total Bilirubin 0.4 mg/dL (0.3-1.0) 10/05/16 06:10 Direct Bilirubin 0.07 mg/dL (0.0-0.2) 09/27/16 04:56 AST 21 U/L (13-39) 10/05/16 06:10 ALT 17 U/L (7-52) 10/05/16 06:10 Alkaline Phosphatase 113 U/L (34-104) H 10/05/16 06:10 Ammonia 52 umol/L (16-53) 10/03/16 04:45 Troponin I 0.79 ng/mL (0.01-0.05) H* D 09/21/16 22:05 B-Natriuretic Peptide 64.0 pg/mL (5.0-100.0) 10/03/16 04:45 Total Protein 5.9 gm/dL (6.0-8.3) L 10/05/16 06:10 Albumin 2.4 gm/dL (3.7-5.3) L 10/05/16 06:10 Globulin 3.5 gm/dL 10/05/16 06:10 Albumin/Globulin Ratio 0.7 (1.0-1.8) L 10/05/16 06:10 Urine Source CATH 10/01/16 09:30 Urine Color YELLOW 10/01/16 09:30 Urine Clarity SL. CLOUDY (CLEAR) 10/01/16 09:30 Urine pH 7.5 10/01/16 09:30 Ur Specific [place] 1.020 (1.005-1.030) 10/01/16 09:30 Urine Protein 100 mg/dL (NEGATIVE) H 10/01/16 09:30 Urine Glucose (UA) NEGATIVE mg/dL (NEGATIVE) 10/01/16 09:30 Urine Ketones NEGATIVE mg/dL (NEGATIVE) 10/01/16 09:30 Urine Blood SMALL (NEGATIVE) H 10/01/16 09:30 Urine Nitrate NEGATIVE (NEGATIVE) 10/01/16 09:30 Urine Bilirubin NEGATIVE (NEGATIVE) 10/01/16 09:30 Urine Urobilinogen 0.2 E.U./dL (0.2 - 1.0) 10/01/16 09:30 Ur Leukocyte Esterase SMALL (NEGATIVE) H 10/01/16 09:30 Urine RBC 5-10 /hpf (0-5) H 10/01/16 09:30 Urine WBC 25-50 /hpf (0-5) H 10/01/16 09:30 Ur Epithelial Cells OCCASIONAL /lpf (FEW) 10/01/16 09:30 Urine Bacteria FEW /hpf (NONE SEEN) 10/01/16 09:30 Amikacin Peak 32.3 ug/mL (20.0-30.0) H 10/07/16 09:40 Amikacin Trough 3.3 ug/mL (1.0-8.0) 10/08/16 09:39 Vancomycin Trough 20.4 ug/mL (10-20) H 09/23/16 16:20 Digoxin 2.3 ng/ml (0.8-2.0) H 09/29/16 07:55 Blood Type O POSITIVE 10/06/16 09:45 Antibody Screen NEGATIVE 10/06/16 09:45 Crossmatch See Detail 10/06/16 09:45 - Physical Exam Vitals and I&O: Vital Signs Temp 98.3 F 10/09/16 08:00 Pulse 111 10/09/16 11:15 Resp 33 03/09/17 11:15 BP 125/86 10/09/16 08:00 Pulse Ox 95 10/09/16 11:15 Intake & Output 10/08/16 10/09/16 10/09/16 18:59 06:59 18:59 Intake Total 2502.667 Output Total 1850 Balance 652.667 Intake: Intake, IV Amount 972.667 Dextrose 5% 1,000 ml @ 10 972.667 mls/hr IV .Q24H [facility] Rx#: [id number] Oral 0 Tube Feeding 1380 Other 150 Output: Gastric Drainage 0 Urine 1850 Other: Stool Characteristics Liquid Brown Active Medications: Current Medications Acetaminophen (Tylenol 650mg/20.3ml Suspension) 650 mg GT Q4H PRN PRN Reason: MILD PAIN AND FEVER >101 Stop: 11/20/16 12:41 Last Admin: 10/08/16 14:40 Dose: 650 mg Acetylcysteine (Mucomyst 20%) 3 ml HHN Q4HR [facility] Stop: 11/24/16 15:59 Last Admin: 10/09/16 11:15 Dose: 3 ml Albuterol Sulfate (Albuterol 2.5mg/3ml Neb Ud) 2.5 mg HHN Q4HRT [facility] Stop: 11/25/16 10:59 Last Admin: 10/09/16 11:15 Dose: 2.5 mg Ascorbic Acid (Vitamin C) 500 mg GT DAILY [facility] Stop: 11/21/16 08:59 Last Admin: 10/09/16 08:32 Dose: 500 mg Atorvastatin Calcium (Lipitor) 40 mg PO HS [facility] Stop: 12/07/16 20:59 Last Admin: 10/08/16 20:58 Dose: 40 mg Dextrose (D50w) 50 ml IVP PRN PRN PRN Reason: blood sugar < 60 Stop: 11/25/16 21:35 Last Admin: 09/27/16 21:49 Dose: 50 ml Diltiazem HCl (Cardizem) 20 mg IVP Q4H PRN PRN Reason: HR Greater than 130 per min Stop: 11/20/16 12:45 Last Admin: 09/28/16 08:05 Dose: 20 mg Folic Acid (Folate) 1 mg GT DAILY [facility] Stop: 11/21/16 08:59 Last Admin: 10/09/16 08:38 Dose: 1 mg Guaifenesin (Robitussin) 200 mg GT Q4HR PRN PRN Reason: Cough or Congestion Stop: 11/20/16 12:41 Last Admin: 10/07/16 12:59 Dose: 200 mg Hydromorphone HCl (Dilaudid) 0.5 mg IVP Q4HR PRN PRN Reason: pain Stop: 11/26/16 19:54 Last Admin: 10/09/16 06:11 Dose: 0.5 mg Norepinephrine Bitartrate 4 mg (/ Dextrose) 254 mls @ 38.1 mls/hr IV TITR PRN; Protocol; 10 MCG/MIN PRN Reason: BP MAINTENANCE (PER PROTOCOL) Stop: 11/20/16 23:39 Last Admin: 09/28/16 12:18 Dose: 4 mcg/min, 15.24 mls/hr Dextrose (D5w) 1,000 mls @ 10 mls/hr IV .Q24H [facility] Stop: 11/30/16 08:24 Last Admin: 10/08/16 20:24 Dose: 10 mls/hr Fluconazole (Diflucan) 200 mg in 100 mls @ 100 mls/hr IV Q24HR [facility] Stop: 12/04/16 13:59 Last Admin: 10/08/16 14:06 Dose: 100 mls/hr Amikacin Sulfate 300 mg/ (Dextrose) 101.2 mls @ 200 mls/hr IV Q24H [facility] Stop: 12/08/16 15:59 Insulin Aspart (Novolog) 0 units SUBQ ACHS CHING PRN Reason: Protocol Stop: 11/20/16 16:29 Last Admin: 10/09/16 07:00 Dose: 12 units Insulin Human NPH (Novolin N) 20 units SUBQ BIDAC CHING PRN Reason: Protocol Stop: 12/07/16 16:29 Last Admin: 10/09/16 07:39 Dose: 20 units Ipratropium [place] (Atrovent Neb 0.5mg/2.5ml) 0.5 mg HHN Q4HRT [facility] Stop: 11/25/16 10:59 Last Admin: 10/09/16 11:15 Dose: 0.5 mg Lactobacillus Rhamnosus (Culturelle) 1 each PO DAILY [facility] Stop: 11/24/16 08:59 Last Admin: 10/09/16 08:37 Dose: 1 each Lactulose (Cephulac) 20 gm GT DAILY [facility] Stop: 11/27/16 08:59 Last Admin: 10/09/16 08:37 Dose: 20 gm Loperamide HCl (Imodium) 2 mg GT Q4H PRN PRN Reason: DIARRHEA Stop: 11/20/16 15:12 Magnesium Hydroxide (Milk Of Magnesia) 30 ml GT DAILY PRN PRN Reason: Constipation Stop: 11/20/16 12:41 Metoclopramide HCl (Reglan) 5 mg IVP TID CHING Stop: 11/29/16 13:59 Last Admin: 10/09/16 08:36 Dose: 5 mg Miscellaneous (Probiotic Screen) 1 ea PRN PRN PRN Reason: PROTOCOL Stop: 11/24/16 08:48 Miscellaneous (Clinical Monitoring) 1 ea PRN PRN PRN Reason: XARELTO Stop: 11/28/16 11:19 Nystatin (Nystop) 100,000 units TP BID [facility] Stop: 11/21/16 08:59 Last Admin: 10/08/16 18:00 Dose: 100,000 units Ondansetron HCl (Zofran) 4 mg IV Q8H PRN PRN Reason: Nausea / Vomiting Stop: 11/20/16 12:45 Rivaroxaban (Xarelto) 10 mg GT DAILY [facility] Stop: 11/21/16 10:59 Last Admin: 10/09/16 08:34 Dose: 10 mg Vitamin A (Vitamin A & D) 5 gm TP DAILY [facility] Stop: 11/21/16 14:59 Last Admin: 10/09/16 10:04 Dose: 5 gm Zinc Sulfate (Zinc Sulfate) 220 mg GT DAILY [facility] Stop: 11/21/16 08:59 Last Admin: 10/09/16 08:34 Dose: 220 mg General: alert HEENT: NC/AT, PERRLA Neck: Supple Lungs: CTAB, congested Cardiovascular: RRR, Normal S1, Normal S2, without murmur Abdomen: soft non-tender, non-distended, positive bowel sound Neurological: no change - Procedures Procedures: Procedures Procedure Code Date BLOOD TRANSFUSION SERVICE 08269 03/06/16 BYPASS DESCENDING COLON TO CUTANEOUS, OPEN APPROACH [id number] 09/21/16 CHANGE GASTROSTOMY TUBE 83551 06/09/14 COLOSTOMY 91345 09/21/16 AGNIESZKA BONE 20 SQ CM/< 15450 01/28/15 DIAGNOSTIC COLONOSCOPY 44445 03/06/16 EGD BIOPSY SINGLE/MULTIPLE 29898 03/06/16 EXCISION OF DUODENUM, ENDO, DIAGN 2UT10IN 03/06/16 EXCISION OF SACRUM, OPEN APPROACH 9RT25CT 09/21/16 EXCISION OF STOMACH, ENDO, DIAGN [id number] 03/06/16 IMMOBILIZ/WOUND ATTN NEC 93.59 01/28/15 INSERT INDWELLING CATH 57.94 10/18/05 INSERT TEMP BLADDER CATH 54909 10/18/05 INSPECTION OF LOWER INTESTINAL TRACT, ENDO [id number] 03/06/16 INSPECTION OF UPPER INTESTINAL TRACT, ENDO [id number] 10/27/15 LOC EXC BONE LESION NEC 77.69 01/28/15 PACKED CELL TRANSFUSION 99.04 10/20/14 REMOVAL OF PRESSURE SORE 37235 09/21/16 REPLACE GASTROSTOMY TUBE 97.02 06/09/14 RESPIRATORY VENTILATION, LESS THAN 24 CONSECUTIVE HOURS 4X3110H 09/21/16 TRANSFUSE NONAUT RED BLOOD CELLS IN PERIPH VEIN, PERC 31140L2 06/16/16 VENT MGMT INPAT INIT DAY 35061 09/21/16 Internal Medicine Assmt/Plan - Assessment Assessment: sepsis shock pmn acute on crf anemia leukocytosis hypoglycemia mr cp elevated ammonia ESBL URINE MRSA NARES - Plan Plan: continue with bipap monitor h/h pain mgmt ivabx bronchodilators wound care Nutritional Asmnt/Malnutr-PDOC - Dietary Evaluation Malnutrition Findings (Please click <Entered> for more info): Nutritional Asmnt/Malnutrition Start: 09/22/16 12: 31 Text: Status: Complete Freq: Document 09/22/16 12:32 GSUN (Rec: 09/22/16 13:00 GSUN [email or web address]) Nutritional Asmnt/Malnutrition Patient General Information Nutritional Screening High Risk Screening Diagnosis Per ER: sepsis, UTI, HTN, possible PNA, elevated troponin Pertinent Medical Hx/Surgical Hx Per ER: HTN, DM, dyslipidemia, anemia, 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 RD consult for decubitus ulcer and trigger for BG >180. Discussed with RN regarding tube feeding regimens when tube feeding resumed. Unable to obtain new weight due to bedscale not properly calibrated. Current Diet Order/ Nutrition Support NPO Pertinent Medications Vitamin C, lipitor, D5, folate , novolog, novolin, cephulac, MOM, zofran, vancomycin, vitamin A and D, zinc sulfate Pertinent Labs 09/21: BUN 112H, creatinine 1. 6H, glucose 263H, A1c 6.5H, troponin 1.96H 09/22: Potassium 2.8L, BUN 74H (improving), creatinine 1.1 ( improved), glucose 278H POC glucose 58-303H Nutritional Hx/Data Height 4 ft 9 in Height (Calculated Centimeters) 144.8 Current Weight (lbs) 97 lb Weight (Calculated Kilograms) 44.0 Weight (Calculated Grams) 23923.5 Weight Status Approriate GI Symptoms Food Allergies No Cultural/Ethnic/Hindu Belief Unknown. 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 Problem Problem Altered nutrition related laboratory values related to Etiology DM aeb Signs/Symptoms: episodes of hypoglycemia and hyperglycemia, 58L and 303H 1. Problem Problem Increased protein and kcal needs related to Etiology hypermetabolic state aeb Signs/Symptoms: sepsis, possible PNA, mulitple ulcerations Intervention/Recommendation Comments 1. Recommend Diabetisource 50ml/hr x 24hrs, providing 1440kcal and 72g protein, for glycemic control and to better meet nutritional needs. 2. Recommend 1 packet Arginaid BID via g-tube for multiple ulcerations wound healing. 3. If episodes of hypoglycemia persists, consider without carbohydrate restriction with Fibersource HN at 50ml/hrs x 24hrs. Expected Outcomes/Goals Expected Outcomes/Goals 1. Pt to meet 100% of estimated nutritional needs on tube feeding + Arginaid with tolerance. Physician Parameters for PEM Serum Albumin (g/dl) 3.5 - 5.0 (Normal)
[2016-10-09] MEDS: Fluconazole 200mg/100mL 200 MG/100 ML BAG IV SCH (15:40)
[2016-10-09] MEDS: INSULIN HUMAN REGULAR 100 UNITS/ML UNIT SUBQ SCH (16:29)
--- NOTE | 2016-10-09 17:34 | General Progress Note ---
Subjective - Review of Systems Service Date: 10/09/16 Events since last encounter: tolerating feedings little colostomy output incsion healing respiratory problems per Dr. Jha Subjective: VS stable urine output adequate extubated, on air O2 sat ok Hb 7.8 gm, might need PRBC dressings dry Objective - Results Result Diagrams: 10/09/16 04:50 10/09/16 04:50 Recent Labs: Laboratory Last Values WBC 8.6 Th/cmm (4.8-10.8) 10/09/16 04:50 RBC 4.02 Mil/cmm (3.80-5.10) 10/09/16 04:50 Hgb 12.0 gm/dL (11.7-15.5) 10/09/16 04:50 Hct 35.3 % (35.0-45.0) 10/09/16 04:50 MCV 87.8 fl (81-100) 10/09/16 04:50 MCH 29.9 pg (27.0-31.0) 10/09/16 04:50 MCHC Differential 34.1 pg (28.0-36.0) 10/09/16 04:50 RDW 14.7 % (11.5-20.0) 10/09/16 04:50 Plt Count 159 Th/cmm (150-400) 10/09/16 04:50 MPV 9.6 fl 10/09/16 04:50 Neutrophils % 65.8 % (40.0-80.0) 10/09/16 04:50 Band Neutrophils % 6 % (0-10) 10/06/16 04:50 Lymphocytes % 17.2 % (20.0-50.0) L 10/09/16 04:50 Monocytes % 8.3 % (2.0-10.0) 10/09/16 04:50 Eosinophils % 8.4 % (0.0-5.0) H 10/09/16 04:50 Basophils % 0.3 % (0.0-2.0) 10/09/16 04:50 Neutrophils (Manual) 63 % (40-80) 10/06/16 04:50 Lymphocytes 15 % (20-50) L 10/06/16 04:50 Monocytes 9 % (2-10) 10/06/16 04:50 Eosinophils 6 % (0-5) H 10/06/16 04:50 Basophils 1 % (0-3) 10/06/16 04:50 Platelet Estimate DECREASED PLATELETS (NORMAL) 10/06/16 04:50 Platelet Morphology NORMAL (NORMAL) 10/06/16 04:50 Polychromasia 1+ 09/22/16 04:49 Anisocytosis 1+ 10/06/16 04:50 RBC Morph Micro Appear ABNORMAL (NORMAL) 10/06/16 04:50 PT 10.3 SECONDS (9.5-11.5) 10/03/16 04:45 INR 0.99 (0.5-1.4) 10/03/16 04:45 PTT (Actin FS) 26.3 SECONDS (26.0-38.0) 10/03/16 04:45 Specimen Source Arterial 10/08/16 13:40 Sample Site Left Radial 10/08/16 13:40 pH 7.43 (7.35-7.45) 10/08/16 13:40 pCO2 49.0 mmHg (35.0-45.0) H 10/08/16 13:40 pO2 154.0 mmHg (80.0-100.0) H 10/08/16 13:40 HCO3 32.5 mEq/L (20.0-26.0) H 10/08/16 13:40 Base Excess 7.0 mEq/L (-3.0-3.0) H 10/08/16 13:40 O2 Saturation 99.0 % (92.0-100.0) 10/08/16 13:40 Emmanuel Test YES 10/08/16 13:40 Vent Rate 12 10/08/16 13:40 Inspired O2 60 10/08/16 13:40 Tidal Volume NA 10/08/16 13:40 PEEP NA 10/08/16 13:40 Pressure (ins/psv/peep) NA 10/08/16 13:40 Critical Value E.MCARTHUR 10/08/16 13:40 Sodium 138 mEq/L (136-145) 10/09/16 04:50 Potassium 3.9 mEq/L (3.5-5.1) 10/09/16 04:50 Chloride 102 mEq/L (98-107) 10/09/16 04:50 Carbon Dioxide 30.5 mEq/L (21.0-31.0) 10/09/16 04:50 Anion Gap 9.4 (7.0-16.0) 10/09/16 04:50 BUN 38 mg/dL (7-25) H 10/09/16 04:50 Creatinine 0.7 mg/dL (0.6-1.2) 10/09/16 04:50 Est GFR ( Amer) > 60.0 ml/min (>90) 10/09/16 04:50 Est GFR (Non-Af Amer) > 60.0 ml/min 10/09/16 04:50 BUN/Creatinine Ratio 54.3 10/09/16 04:50 Glucose 390 mg/dL (70-105) H 10/09/16 04:50 POC Glucose 386 MG/DL (70 - 105) H 10/09/16 16:01 Hemoglobin A1c % 6.5 % (4.0-6.0) H 09/21/16 09:13 Whole Bld Lactic Acid 0.96 mmol/L (0.60-2.00) 09/21/16 22:05 Calcium 10.1 mg/dL (8.6-10.3) 10/09/16 04:50 Magnesium 2.0 mg/dL (1.9-2.7) 10/07/16 04:40 Total Bilirubin 0.4 mg/dL (0.3-1.0) 10/05/16 06:10 Direct Bilirubin 0.07 mg/dL (0.0-0.2) 09/27/16 04:56 AST 21 U/L (13-39) 10/05/16 06:10 ALT 17 U/L (7-52) 10/05/16 06:10 Alkaline Phosphatase 113 U/L (34-104) H 10/05/16 06:10 Ammonia 52 umol/L (16-53) 10/03/16 04:45 Troponin I 0.79 ng/mL (0.01-0.05) H* D 09/21/16 22:05 B-Natriuretic Peptide 64.0 pg/mL (5.0-100.0) 10/03/16 04:45 Total Protein 5.9 gm/dL (6.0-8.3) L 10/05/16 06:10 Albumin 2.4 gm/dL (3.7-5.3) L 10/05/16 06:10 Globulin 3.5 gm/dL 10/05/16 06:10 Albumin/Globulin Ratio 0.7 (1.0-1.8) L 10/05/16 06:10 Urine Source CATH 10/01/16 09:30 Urine Color YELLOW 10/01/16 09:30 Urine Clarity SL. CLOUDY (CLEAR) 10/01/16 09:30 Urine pH 7.5 10/01/16 09:30 Ur Specific [place] 1.020 (1.005-1.030) 10/01/16 09:30 Urine Protein 100 mg/dL (NEGATIVE) H 10/01/16 09:30 Urine Glucose (UA) NEGATIVE mg/dL (NEGATIVE) 10/01/16 09:30 Urine Ketones NEGATIVE mg/dL (NEGATIVE) 10/01/16 09:30 Urine Blood SMALL (NEGATIVE) H 10/01/16 09:30 Urine Nitrate NEGATIVE (NEGATIVE) 10/01/16 09:30 Urine Bilirubin NEGATIVE (NEGATIVE) 10/01/16 09:30 Urine Urobilinogen 0.2 E.U./dL (0.2 - 1.0) 10/01/16 09:30 Ur Leukocyte Esterase SMALL (NEGATIVE) H 10/01/16 09:30 Urine RBC 5-10 /hpf (0-5) H 10/01/16 09:30 Urine WBC 25-50 /hpf (0-5) H 10/01/16 09:30 Ur Epithelial Cells OCCASIONAL /lpf (FEW) 10/01/16 09:30 Urine Bacteria FEW /hpf (NONE SEEN) 10/01/16 09:30 Amikacin Peak 32.3 ug/mL (20.0-30.0) H 10/07/16 09:40 Amikacin Trough 3.3 ug/mL (1.0-8.0) 10/08/16 09:39 Vancomycin Trough 20.4 ug/mL (10-20) H 09/23/16 16:20 Digoxin 2.3 ng/ml (0.8-2.0) H 09/29/16 07:55 Blood Type O POSITIVE 10/06/16 09:45 Antibody Screen NEGATIVE 10/06/16 09:45 Crossmatch See Detail 10/06/16 09:45 - Physical Exam Vitals and I&O: Vital Signs Temp 97.2 F 10/09/16 12:00 Pulse 121 10/09/16 15:15 Resp 30 10/09/16 15:15 BP 136/99 10/09/16 13:55 Pulse Ox 94 10/09/16 15:15 Intake & Output 10/08/16 10/09/16 10/09/16 18:59 06:59 18:59 Intake Total 100 2502.667 Output Total 1850 Balance 100 652.667 Weight (lbs) 52.798 kg Intake: Intake, IV Amount 100 972.667 Dextrose 5% 1,000 ml @ 10 972.667 mls/hr IV .Q24H [facility] Rx#: [id number] Fluconazole 200mg/100mL 100 200 mg In 100 ml @ 100 mls/hr IV Q24HR [facility] Rx#: [id number] Oral 0 Tube Feeding 1380 Other 150 Output: Gastric Drainage 0 Urine 1850 Other: Stool Characteristics Liquid Brown Active Medications: Current Medications Acetaminophen (Tylenol 650mg/20.3ml Suspension) 650 mg GT Q4H PRN PRN Reason: MILD PAIN AND FEVER >101 Stop: 11/20/16 12:41 Last Admin: 10/08/16 14:40 Dose: 650 mg Acetylcysteine (Mucomyst 20%) 3 ml HHN Q4HR [facility] Stop: 11/24/16 15:59 Last Admin: 10/09/16 15:15 Dose: 3 ml Albuterol Sulfate (Albuterol 2.5mg/3ml Neb Ud) 2.5 mg HHN Q4HRT [facility] Stop: 11/25/16 10:59 Last Admin: 10/09/16 15:15 Dose: 2.5 mg Ascorbic Acid (Vitamin C) 500 mg GT DAILY [facility] Stop: 11/21/16 08:59 Last Admin: 10/09/16 08:32 Dose: 500 mg Atorvastatin Calcium (Lipitor) 40 mg PO HS [facility] Stop: 12/07/16 20:59 Last Admin: 10/08/16 20:58 Dose: 40 mg Dextrose (D50w) 50 ml IVP PRN PRN PRN Reason: blood sugar < 60 Stop: 11/25/16 21:35 Last Admin: 09/27/16 21:49 Dose: 50 ml Diltiazem HCl (Cardizem) 20 mg IVP Q4H PRN PRN Reason: HR Greater than 130 per min Stop: 11/20/16 12:45 Last Admin: 09/28/16 08:05 Dose: 20 mg Folic Acid (Folate) 1 mg GT DAILY [facility] Stop: 11/21/16 08:59 Last Admin: 10/09/16 08:38 Dose: 1 mg Guaifenesin (Robitussin) 200 mg GT Q4HR PRN PRN Reason: Cough or Congestion Stop: 11/20/16 12:41 Last Admin: 10/07/16 12:59 Dose: 200 mg Hydromorphone HCl (Dilaudid) 0.5 mg IVP Q4HR PRN PRN Reason: pain Stop: 11/26/16 19:54 Last Admin: 10/09/16 12:39 Dose: 0.5 mg Norepinephrine Bitartrate 4 mg (/ Dextrose) 254 mls @ 38.1 mls/hr IV TITR PRN; Protocol; 10 MCG/MIN PRN Reason: BP MAINTENANCE (PER PROTOCOL) Stop: 11/20/16 23:39 Last Admin: 09/28/16 12:18 Dose: 4 mcg/min, 15.24 mls/hr Dextrose (D5w) 1,000 mls @ 10 mls/hr IV .Q24H [facility] Stop: 11/30/16 08:24 Last Admin: 10/08/16 20:24 Dose: 10 mls/hr Fluconazole (Diflucan) 200 mg in 100 mls @ 100 mls/hr IV Q24HR [facility] Stop: 12/04/16 13:59 Last Admin: 10/09/16 15:40 Dose: 100 mls/hr Amikacin Sulfate 300 mg/ (Dextrose) 101.2 mls @ 200 mls/hr IV Q24H [facility] Stop: 12/08/16 15:59 Last Admin: 10/09/16 15:54 Dose: 200 mls/hr Insulin Aspart (Novolog) 0 units SUBQ ACHS [facility] PRN Reason: Protocol Stop: 11/20/16 16:29 Last Admin: 10/09/16 16:07 Dose: 8 units Insulin Human NPH (Novolin N) 20 units SUBQ BIDAC [facility] PRN Reason: Protocol Stop: 12/07/16 16:29 Last Admin: 10/09/16 16:10 Dose: 20 units Insulin Human Regular (Novolin R) 8 units SUBQ Q8HR [facility] Stop: 12/08/16 12:59 Last Admin: 10/09/16 16:29 Dose: 8 units Ipratropium [place] (Atrovent Neb 0.5mg/2.5ml) 0.5 mg HHN Q4HRT [facility] Stop: 11/25/16 10:59 Last Admin: 10/09/16 15:15 Dose: 0.5 mg Lactobacillus Rhamnosus (Culturelle) 1 each PO DAILY [facility] Stop: 11/24/16 08:59 Last Admin: 10/09/16 08:37 Dose: 1 each Lactulose (Cephulac) 20 gm GT DAILY [facility] Stop: 11/27/16 08:59 Last Admin: 10/09/16 08:37 Dose: 20 gm Loperamide HCl (Imodium) 2 mg GT Q4H PRN PRN Reason: DIARRHEA Stop: 11/20/16 15:12 Magnesium Hydroxide (Milk Of Magnesia) 30 ml GT DAILY PRN PRN Reason: Constipation Stop: 11/20/16 12:41 Metoclopramide HCl (Reglan) 5 mg IVP TID [facility] Stop: 11/29/16 13:59 Last Admin: 10/09/16 15:42 Dose: 5 mg Miscellaneous (Probiotic Screen) 1 ea PRN PRN PRN Reason: PROTOCOL Stop: 11/24/16 08:48 Miscellaneous (Clinical Monitoring) 1 [facility] PRN PRN PRN Reason: XARELTO Stop: 11/28/16 11:19 Nystatin (Nystop) 100,000 units TP BID [facility] Stop: 11/21/16 08:59 Last Admin: 10/08/16 18:00 Dose: 100,000 units Ondansetron HCl (Zofran) 4 mg IV Q8H PRN PRN Reason: Nausea / Vomiting Stop: 11/20/16 12:45 Rivaroxaban (Xarelto) 10 mg GT DAILY [facility] Stop: 11/21/16 10:59 Last Admin: 10/09/16 08:34 Dose: 10 mg Vitamin A (Vitamin A & D) 5 gm TP DAILY [facility] Stop: 11/21/16 14:59 Last Admin: 10/09/16 10:04 Dose: 5 gm Zinc Sulfate (Zinc Sulfate) 220 mg GT DAILY [facility] Stop: 11/21/16 08:59 Last Admin: 10/09/16 08:34 Dose: 220 mg - Procedures Procedures: Procedures Procedure Code Date BLOOD TRANSFUSION SERVICE 35018 03/06/16 BYPASS DESCENDING COLON TO CUTANEOUS, OPEN APPROACH [id number] 09/21/16 CHANGE GASTROSTOMY TUBE 47915 06/09/14 COLOSTOMY 72728 09/21/16 AGNIESZKA BONE 20 SQ CM/< 72253 01/28/15 DIAGNOSTIC COLONOSCOPY 94174 03/06/16 EGD BIOPSY SINGLE/MULTIPLE 51441 03/06/16 EXCISION OF DUODENUM, ENDO, DIAGN [id number] 03/06/16 EXCISION OF SACRUM, OPEN APPROACH [id number] 09/21/16 EXCISION OF STOMACH, ENDO, DIAGN [id number] 03/06/16 IMMOBILIZ/WOUND ATTN NEC 93.59 01/28/15 INSERT INDWELLING CATH 57.94 10/18/05 INSERT TEMP BLADDER CATH 38297 10/18/05 INSPECTION OF LOWER INTESTINAL TRACT, ENDO [id number] 03/06/16 INSPECTION OF UPPER INTESTINAL TRACT, ENDO [id number] 10/27/15 LOC EXC BONE LESION NEC 77.69 01/28/15 PACKED CELL TRANSFUSION 99.04 10/20/14 REMOVAL OF PRESSURE SORE 00271 09/21/16 REPLACE GASTROSTOMY TUBE 97.02 06/09/14 RESPIRATORY VENTILATION, LESS THAN 24 CONSECUTIVE HOURS [id number] 09/21/16 TRANSFUSE NONAUT RED BLOOD CELLS IN PERIPH VEIN, PERC [id number] 06/16/16 VENT MGMT INPAT INIT DAY 25529 09/21/16 Assessment/Plan - Problem List Patient Problems: All Active Problems HYPOTENSION WITH TACHYCARDIA AND CONGEST (Acute) Anemia (Acute 03/06/16) D64.9 Dyspnea (Acute) R06.00 Fever, unspecified (Acute) R50.9 Hyperglycemia (Acute) R73.9 Hyperosmolality and/or hypernatremia (Acute) E87.0 Mental retardation (Acute) F79 Other abnormal clinical finding (Acute) R68.89 Pneumonia (Acute) J18.9 Staphylococcal sepsis (Acute) Uncontrolled diabetes mellitus (Acute) E11.65 Urinary tract infection (Acute) Nutritional Asmnt/Malnutr-PDOC - Dietary Evaluation Malnutrition Findings (Please click <Entered> for more info): Nutritional Asmnt/Malnutrition Start: 09/22/16 12: 31 Text: Status: Complete Freq: Document 09/22/16 12:32 GSUN (Rec: 09/22/16 13:00 GSCHAO [email or web address]) Nutritional Asmnt/Malnutrition Patient General Information Nutritional Screening High Risk Screening Diagnosis Per ER: sepsis, UTI, HTN, possible PNA, elevated troponin Pertinent Medical Hx/Surgical Hx Per ER: HTN, DM, dyslipidemia, anemia, 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 RD consult for decubitus ulcer and trigger for BG >180. Discussed with RN regarding tube feeding regimens when tube feeding resumed. Unable to obtain new weight due to bedscale not properly calibrated. Current Diet Order/ Nutrition Support NPO Pertinent Medications Vitamin C, lipitor, D5, folate , novolog, novolin, cephulac, MOM, zofran, vancomycin, vitamin A and D, zinc sulfate Pertinent Labs 09/21: BUN 112H, creatinine 1. 6H, glucose 263H, A1c 6.5H, troponin 1.96H 09/22: Potassium 2.8L, BUN 74H (improving), creatinine 1.1 ( improved), glucose 278H POC glucose 58-303H Nutritional Hx/Data Height 1.45 m Height (Calculated Centimeters) 144.8 Current Weight (lbs) 43.998 kg Weight (Calculated Kilograms) 44.0 Weight (Calculated Grams) 28125.5 Weight Status Approriate GI Symptoms Food Allergies No Cultural/Ethnic/Gnosticist Belief Unknown. 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 Problem Problem Altered nutrition related laboratory values related to Etiology DM aeb Signs/Symptoms: episodes of hypoglycemia and hyperglycemia, 58L and 303H 1. Problem Problem Increased protein and kcal needs related to Etiology hypermetabolic state aeb Signs/Symptoms: sepsis, possible PNA, mulitple ulcerations Intervention/Recommendation Comments 1. Recommend Diabetisource 50ml/hr x 24hrs, providing 1440kcal and 72g protein, for glycemic control and to better meet nutritional needs. 2. Recommend 1 packet Arginaid BID via g-tube for multiple ulcerations wound healing. 3. If episodes of hypoglycemia persists, consider without carbohydrate restriction with Fibersource HN at 50ml/hrs x 24hrs. Expected Outcomes/Goals Expected Outcomes/Goals 1. Pt to meet 100% of estimated nutritional needs on tube feeding + Arginaid with tolerance. Physician Parameters for PEM Serum Albumin (g/dl) 3.5 - 5.0 (Normal)
[2016-10-10] MEDS: INSULIN HUMAN REGULAR 100 UNITS/ML UNIT SUBQ SCH ×3 (00:05→08:06)
[2016-10-10] MEDS: INSULIN ASPART, RECOMBINANT 100 UNITS/ML SUBQ SCH ×4 (00:08→18:28)
--- NOTE | 2016-10-10 00:54 | Admit Criteria Form ---
Admit Criteria Forms - Admit Criteria Diagnosis: ABDOMINAL PAIN Clinical Indications for Admission to Inpatient Care (Place 'X' for any and all applicable criteria): Admission is indicated for ANY ONE of the following(1)(2)(3)(4)(5): [ ]I. Inpatient admission required rather than observation care (Also use Abdominal Pain: Observation Care, as appropriate) because of ANY ONE of the following: [ ]a) Severe pain requiring acute inpatient management [ ]b) Identification of etiology/finding that requires inpatient care (eg, aortic dissection, free air) [ ]c) Absent bowel sounds with complete ileus(6) [ ]d) Suspected toxic megacolon [ ]e) Severe electrolyte abnormalities requiring inpatient care [ ]f) High fever or infection requiring inpatient admission as indicated by ANY ONE of following(7)(8): [ ] i) Appropriate outpatient or observational care antimicrobial treatment unavailable, not effective, or not feasible [ ] ii) Documented bacteremia [ ] iii) Temperature > 104.9 degrees F (oral) [ ] iv) T >103.1 F (oral) or < 96.8 F(rectal) that does not respond to all emergency treatment measures [ ]g) Signs of intestinal obstruction [B] [ ]h) Hemodynamic instability [ ]i) IV fluid to replace significant ongoing losses (greater than 3 L/m2 per day) (12)(13) [ ]j) Percutaneous or open drainage (eg, abscess, biliary tract ) procedures [ ]k) Parenteral nutrition regimen that must be implemented on inpatient basis [ ]l) Other condition,treatment or monitoring requiring inpatient admission. [ ]II. Peritoneal signs present [ ]III. Surgery needed that cannot be performed on an ambulatory basis. [ ]IV. Evaluation requires patient to not eat or drink for extended period ( eg, more than 24 hours). [ ]V. Contraindications and/or Inappropriate clinical situations for Observational Care in patients with abdominal pain, when ANY ONE of the following is required: [ ]a) Thorough evaluation is required to prevent catastrophic events due to delays in diagnosing (e.g.Mesenteric ischemia) 1,3 [ ]b) Patient with severe pathology or with chronic symptoms unlikely to improve in the ED stay (3) [ ]. General contraindications and/or Inappropriate clinical situations for Observational Care in patients with abdominal pain, when ANY ONE of the following is required: [ ]a) Prediction of prolongation of LOS based on ANY ONE of the following may be considered as a contraindication for observational care 2, 3, 4, 5, 6, 7, 8, 9, 10, 11 [ ]i) Age > 65 yrs. [ ]ii) Patient arriving by ambulance [ ]iii) Patient with high acuity [ ]iv) Patient requiring vital sign monitoring [ ]v) Patient on IV medication [ ]b) Systolic blood pressures 180mmHg 3,12 [ ]c) Patient with altered mental status including delirium and other alteration of consciousness, (3) [ ]d) Patient whose discharge disposition will be to a longterm home or rehabilitation home should not be managed in Emergency Department Observation Unit. CMS rule requires 3 days hospital stay before such placement.3,13 [ ]e) Patient with failure to thrive due to broad array of etiologies 3,16,17 [ ]f) Inability to ambulate 3,14 Extended stay beyond goal length of stay may be needed for(2)(3): [ ]a) Persistent abdominal pain with suspected intra-abdominal process [ ]b) Diagnosed condition requiring continued stay (e.g., pancreatitis, complicated diverticulitis) [ ]c) Surgery (e.g., colectomy) The original [facility] content created by [employer] has been revised. The portions of the content which have been revised are identified through the use of italic text or in bold, and [facility] [employer] has neither reviewed nor approved the modified material.All other unmodified content is copyright [facility] [employer]. Please see references footnoted in the original [facility] edition 2016
[2016-10-10] MEDS: Albuterol Nebulizer 2.5mg/3mL HHN SCH ×6 (02:53→23:04)
[2016-10-10] MEDS: Ipratropium Neb 0.5 mg/2.5 mL UD HHN SCH ×6 (02:54→23:00)
[2016-10-10] MEDS: INSULIN HUMAN ISOPHANE (NPH) 100 UNITS/ML SUBQ SCH ×2 (08:08→16:35)
[2016-10-10] MEDS: Lactobacillus Rhamnosus 10 Billion CFU Capsule PO SCH (08:22)
[2016-10-10] MEDS: Lactulose 10 Gm/15 mL 30mL UDC GT SCH (08:22)
[2016-10-10] MEDS: Multivitamin w/ Minerals Tab GT SCH (08:22)
[2016-10-10] MEDS: Metoclopramide 5 mg/mL 2mL Vial IVP SCH ×3 (08:23→21:20)
[2016-10-10] MEDS: NYSTATIN 100000 UNITS/GM POWD TP SCH ×2 (08:32→16:39)
[2016-10-10] MEDS: Vitamin A/Vitamin D 5 gm Packet TP SCH (09:30)
[2016-10-10] MEDS: HYDROmorphone 1 mg/mL 1mL Syr IVP PRN ×4 (10:30→22:07)
--- NOTE | 2016-10-10 11:06 | Diagnostic Imaging Report ---
Portable chest x-ray HISTORY: Shortness of breath Compared to prior exam of October 08, 2016, improved visualization the left lower lobe. No definite focal pulmonary parenchymal processes. Marked scoliosis of the thoracic spine. IMPRESSION: 1. Limited exam with no definite focal pulmonary parenchymal processes
[2016-10-10 11:45] LABS: % BASOPHILS 0.1 % (0.0-2.0); % EOSINOPHILS 8.1 % (0.0-5.0); % LYMPHOCYTES 16.3 % (20.0-50.0); % MONOCYTES 11.4 % (2.0-10.0); % NEUTROPHILS 64.1 % (40.0-80.0); HEMATOCRIT 33.1 % (35.0-45.0); HEMOGLOBIN 11.2 gm/dL (11.7-15.5); MEAN CELL VOLUME 88.4 fl (81-100); MEAN CORPUSCULAR HGB CONC 33.9 pg (28.0-36.0); MEAN PLATELET VOLUME 9.2 fl; NEUTROPHILE ABSOLUTE 4.6 Th/cmm (1.8-8.0); PLATELET COUNT 145 Th/cmm (150-400); RED BLOOD COUNT 3.75 Mil/cmm (3.80-5.10); RED CELL DISTRIBUTION WIDTH 14.5 % (11.5-20.0); WHITE BLOOD COUNT 7.2 Th/cmm (4.8-10.8)
[2016-10-10 12:04] LABS: ALB/GLOB RATIO 0.7 (1.0-1.8); ALKALINE PHOSPHATASE 161 U/L (34-104); ANION GAP 7.5 (7.0-16.0); BILIRUBIN,TOTAL 0.4 mg/dL (0.3-1.0); BUN - UREA NITROGEN 48 mg/dL (7-25); BUN/CREATININE RATIO 68.6; CALCIUM SERUM 10.3 mg/dL (8.6-10.3); CARBON DIOXIDE 31.5 mEq/L (21.0-31.0); CHLORIDE 104 mEq/L (98-107); CREATININE - SERUM 0.7 mg/dL (0.6-1.2); GLUCOSE 323 mg/dL (70-105); SGOT 17 U/L (13-39); SGPT/ALT 15 U/L (7-52); SODIUM SERUM 139 mEq/L (136-145)
[2016-10-10] MEDS ORDERED: Diatrizoate Meglumine/Diatri 30 mL Sol PO ONE (12:16)
--- NOTE | 2016-10-10 12:17 | Internal Medicine Prog Note ---
Internal Medicine Subjective - Subjective Patient seen and examined:: with staff, chart reviewed Patient is:: awake, non-verbal, non-interactive Patient Complaints of:: congestion, bloated Per staff patient is:: no adverse event (facemask) Internal Medicine Objective - Results Result Diagrams: 10/10/16 11:30 10/10/16 11:30 Recent Labs: Laboratory Last Values WBC 7.2 Th/cmm (4.8-10.8) 10/10/16 11:30 RBC 3.75 Mil/cmm (3.80-5.10) L 10/10/16 11:30 Hgb 11.2 gm/dL (11.7-15.5) L 10/10/16 11:30 Hct 33.1 % (35.0-45.0) L 10/10/16 11:30 MCV 88.4 fl (81-100) 10/10/16 11:30 MCH 30.0 pg (27.0-31.0) 10/10/16 11:30 MCHC Differential 33.9 pg (28.0-36.0) 10/10/16 11:30 RDW 14.5 % (11.5-20.0) 10/10/16 11:30 Plt Count 145 Th/cmm (150-400) L 10/10/16 11:30 MPV 9.2 fl 10/10/16 11:30 Neutrophils % 64.1 % (40.0-80.0) 10/10/16 11:30 Band Neutrophils % 6 % (0-10) 10/06/16 04:50 Lymphocytes % 16.3 % (20.0-50.0) L 10/10/16 11:30 Monocytes % 11.4 % (2.0-10.0) H 10/10/16 11:30 Eosinophils % 8.1 % (0.0-5.0) H 10/10/16 11:30 Basophils % 0.1 % (0.0-2.0) 10/10/16 11:30 Neutrophils (Manual) 63 % (40-80) 10/06/16 04:50 Lymphocytes 15 % (20-50) L 10/06/16 04:50 Monocytes 9 % (2-10) 10/06/16 04:50 Eosinophils 6 % (0-5) H 10/06/16 04:50 Basophils 1 % (0-3) 10/06/16 04:50 Platelet Estimate DECREASED PLATELETS (NORMAL) 10/06/16 04:50 Platelet Morphology NORMAL (NORMAL) 10/06/16 04:50 Polychromasia 1+ 09/22/16 04:49 Anisocytosis 1+ 10/06/16 04:50 RBC Morph Micro Appear ABNORMAL (NORMAL) 10/06/16 04:50 PT 10.3 SECONDS (9.5-11.5) 10/03/16 04:45 INR 0.99 (0.5-1.4) 10/03/16 04:45 PTT (Actin FS) 26.3 SECONDS (26.0-38.0) 10/03/16 04:45 Specimen Source Arterial 10/08/16 13:40 Sample Site Left Radial 10/08/16 13:40 pH 7.43 (7.35-7.45) 10/08/16 13:40 pCO2 49.0 mmHg (35.0-45.0) H 10/08/16 13:40 pO2 154.0 mmHg (80.0-100.0) H 10/08/16 13:40 HCO3 32.5 mEq/L (20.0-26.0) H 10/08/16 13:40 Base Excess 7.0 mEq/L (-3.0-3.0) H 10/08/16 13:40 O2 Saturation 99.0 % (92.0-100.0) 10/08/16 13:40 Emmanuel Test YES 10/08/16 13:40 Vent Rate 12 10/08/16 13:40 Inspired O2 60 10/08/16 13:40 Tidal Volume NA 10/08/16 13:40 PEEP NA 10/08/16 13:40 Pressure (ins/psv/peep) NA 10/08/16 13:40 Critical Value E.MCARTHUR 10/08/16 13:40 Sodium 139 mEq/L (136-145) 10/10/16 11:30 Potassium 4.0 mEq/L (3.5-5.1) 10/10/16 11:30 Chloride 104 mEq/L (98-107) 10/10/16 11:30 Carbon Dioxide 31.5 mEq/L (21.0-31.0) H 10/10/16 11:30 Anion Gap 7.5 (7.0-16.0) 10/10/16 11:30 BUN 48 mg/dL (7-25) H 10/10/16 11:30 Creatinine 0.7 mg/dL (0.6-1.2) 10/10/16 11:30 Est GFR ( Amer) > 60.0 ml/min (>90) 10/10/16 11:30 Est GFR (Non-Af Amer) > 60.0 ml/min 10/10/16 11:30 BUN/Creatinine Ratio 68.6 10/10/16 11:30 Glucose 323 mg/dL (70-105) H 10/10/16 11:30 POC Glucose 340 MG/DL (70 - 105) H 10/10/16 11:43 Hemoglobin A1c % 6.5 % (4.0-6.0) H 09/21/16 09:13 Whole Bld Lactic Acid 0.96 mmol/L (0.60-2.00) 09/21/16 22:05 Calcium 10.3 mg/dL (8.6-10.3) 10/10/16 11:30 Magnesium 2.0 mg/dL (1.9-2.7) 10/07/16 04:40 Total Bilirubin 0.4 mg/dL (0.3-1.0) 10/10/16 11:30 Direct Bilirubin 0.07 mg/dL (0.0-0.2) 09/27/16 04:56 AST 17 U/L (13-39) 10/10/16 11:30 ALT 15 U/L (7-52) 10/10/16 11:30 Alkaline Phosphatase 161 U/L (34-104) H 10/10/16 11:30 Ammonia 52 umol/L (16-53) 10/03/16 04:45 Troponin I 0.79 ng/mL (0.01-0.05) H* D 09/21/16 22:05 B-Natriuretic Peptide 64.0 pg/mL (5.0-100.0) 10/03/16 04:45 Total Protein 6.9 gm/dL (6.0-8.3) 10/10/16 11:30 Albumin 2.8 gm/dL (3.7-5.3) L 10/10/16 11:30 Globulin 4.1 gm/dL 10/10/16 11:30 Albumin/Globulin Ratio 0.7 (1.0-1.8) L 10/10/16 11:30 Urine Source CATH 10/01/16 09:30 Urine Color YELLOW 10/01/16 09:30 Urine Clarity SL. CLOUDY (CLEAR) 10/01/16 09:30 Urine pH 7.5 10/01/16 09:30 Ur Specific [place] 1.020 (1.005-1.030) 10/01/16 09:30 Urine Protein 100 mg/dL (NEGATIVE) H 10/01/16 09:30 Urine Glucose (UA) NEGATIVE mg/dL (NEGATIVE) 10/01/16 09:30 Urine Ketones NEGATIVE mg/dL (NEGATIVE) 10/01/16 09:30 Urine Blood SMALL (NEGATIVE) H 10/01/16 09:30 Urine Nitrate NEGATIVE (NEGATIVE) 10/01/16 09:30 Urine Bilirubin NEGATIVE (NEGATIVE) 10/01/16 09:30 Urine Urobilinogen 0.2 E.U./dL (0.2 - 1.0) 10/01/16 09:30 Ur Leukocyte Esterase SMALL (NEGATIVE) H 10/01/16 09:30 Urine RBC 5-10 /hpf (0-5) H 10/01/16 09:30 Urine WBC 25-50 /hpf (0-5) H 10/01/16 09:30 Ur Epithelial Cells OCCASIONAL /lpf (FEW) 10/01/16 09:30 Urine Bacteria FEW /hpf (NONE SEEN) 10/01/16 09:30 Amikacin Peak 32.3 ug/mL (20.0-30.0) H 10/07/16 09:40 Amikacin Trough 3.3 ug/mL (1.0-8.0) 10/08/16 09:39 Vancomycin Trough 20.4 ug/mL (10-20) H 09/23/16 16:20 Digoxin 2.3 ng/ml (0.8-2.0) H 09/29/16 07:55 Blood Type O POSITIVE 10/06/16 09:45 Antibody Screen NEGATIVE 10/06/16 09:45 Crossmatch See Detail 10/06/16 09:45 - Physical Exam Vitals and I&O: Vital Signs Temp 98.2 F 10/10/16 08:00 Pulse 111 10/10/16 11:42 Resp 20 10/10/16 11:42 BP 93/52 10/10/16 08:00 Pulse Ox 100 10/10/16 11:42 Intake & Output 10/09/16 10/10/16 10/10/16 18:59 06:59 18:59 Intake Total 751.2 Output Total 855 Balance -103.8 Weight (lbs) 52.798 kg Intake: Intake, IV Amount 201.2 Amikacin 300 mg In 101.2 Dextrose 5% 100 ml @ 200 mls/hr IV Q24H [facility] Rx#: [id number] Fluconazole 200mg/100mL 100 200 mg In 100 ml @ 100 mls/hr IV Q24HR [facility] Rx#: [id number] Tube Feeding 550 Output: Urine 850 Stool 5 Other: # Bowel Movements 1 Stool Characteristics Liquid Brown Active Medications: Current Medications Acetaminophen (Tylenol 650mg/20.3ml Suspension) 650 mg GT Q4H PRN PRN Reason: MILD PAIN AND FEVER >101 Stop: 11/20/16 12:41 Last Admin: 10/08/16 14:40 Dose: 650 mg Acetylcysteine (Mucomyst 20%) 3 ml HHN Q4HR [facility] Stop: 11/24/16 15:59 Last Admin: 10/10/16 11:42 Dose: 3 ml Albuterol Sulfate (Albuterol 2.5mg/3ml Neb Ud) 2.5 mg HHN Q4HRT [facility] Stop: 11/25/16 10:59 Last Admin: 10/10/16 11:42 Dose: 2.5 mg Ascorbic Acid (Vitamin C) 500 mg GT DAILY [facility] Stop: 11/21/16 08:59 Last Admin: 10/10/16 08:22 Dose: 500 mg Atorvastatin Calcium (Lipitor) 40 mg PO HS [facility] Stop: 12/07/16 20:59 Last Admin: 10/09/16 20:50 Dose: 40 mg Dextrose (D50w) 50 ml IVP PRN PRN PRN Reason: blood sugar < 60 Stop: 11/25/16 21:35 Last Admin: 09/27/16 21:49 Dose: 50 ml Diltiazem HCl (Cardizem) 20 mg IVP Q4H PRN PRN Reason: HR Greater than 130 per min Stop: 11/20/16 12:45 Last Admin: 09/28/16 08:05 Dose: 20 mg Folic Acid (Folate) 1 mg GT DAILY [facility] Stop: 11/21/16 08:59 Last Admin: 10/10/16 08:23 Dose: 1 mg Guaifenesin (Robitussin) 200 mg GT Q4HR PRN PRN Reason: Cough or Congestion Stop: 11/20/16 12:41 Last Admin: 10/07/16 12:59 Dose: 200 mg Hydromorphone HCl (Dilaudid) 0.5 mg IVP Q4HR PRN PRN Reason: pain Stop: 11/26/16 19:54 Last Admin: 10/10/16 10:30 Dose: 0.5 mg Norepinephrine Bitartrate 4 mg (/ Dextrose) 254 mls @ 38.1 mls/hr IV TITR PRN; Protocol; 10 MCG/MIN PRN Reason: BP MAINTENANCE (PER PROTOCOL) Stop: 11/20/16 23:39 Last Admin: 09/28/16 12:18 Dose: 4 mcg/min, 15.24 mls/hr Dextrose (D5w) 1,000 mls @ 10 mls/hr IV .Q24H [facility] Stop: 11/30/16 08:24 Last Admin: 10/08/16 20:24 Dose: 10 mls/hr Fluconazole (Diflucan) 200 mg in 100 mls @ 100 mls/hr IV Q24HR [facility] Stop: 12/04/16 13:59 Last Infusion: 10/09/16 18:22 Dose: Infused Amikacin Sulfate 300 mg/ (Dextrose) 101.2 mls @ 200 mls/hr IV Q24H [facility] Stop: 12/08/16 15:59 Last Infusion: 10/09/16 18:24 Dose: Infused Insulin Aspart (Novolog Insulin Sliding Scale) 2 units SUBQ Q6HR [facility] PRN Reason: Protocol Stop: 12/09/16 17:59 Insulin Aspart (Novolog) 10 units SUBQ Q8HR [facility] Stop: 12/09/16 12:59 Insulin Human NPH (Novolin N) 20 units SUBQ BIDAC [facility] PRN Reason: Protocol Stop: 12/07/16 16:29 Last Admin: 10/10/16 08:08 Dose: 20 units Ipratropium [place] (Atrovent Neb 0.5mg/2.5ml) 0.5 mg HHN Q4HRT [facility] Stop: 11/25/16 10:59 Last Admin: 10/10/16 11:42 Dose: 0.5 mg Lactobacillus Rhamnosus (Culturelle) 1 each PO DAILY [facility] Stop: 11/24/16 08:59 Last Admin: 10/10/16 08:22 Dose: 1 each Lactulose (Cephulac) 20 gm GT DAILY [facility] Stop: 11/27/16 08:59 Last Admin: 10/10/16 08:22 Dose: 20 gm Loperamide HCl (Imodium) 2 mg GT Q4H PRN PRN Reason: DIARRHEA Stop: 11/20/16 15:12 Magnesium Hydroxide (Milk Of Magnesia) 30 ml GT DAILY PRN PRN Reason: Constipation Stop: 11/20/16 12:41 Metoclopramide HCl (Reglan) 5 mg IVP TID [facility] Stop: 11/29/16 13:59 Last Admin: 10/10/16 08:23 Dose: 5 mg Miscellaneous (Probiotic Screen) 1 ea PRN PRN PRN Reason: PROTOCOL Stop: 11/24/16 08:48 Miscellaneous (Clinical Monitoring) 1 ea PRN PRN PRN Reason: XARELTO Stop: 11/28/16 11:19 Nystatin (Nystop) 100,000 units TP BID [facility] Stop: 11/21/16 08:59 Last Admin: 10/10/16 08:32 Dose: 100,000 units Ondansetron HCl (Zofran) 4 mg IV Q8H PRN PRN Reason: Nausea / Vomiting Stop: 11/20/16 12:45 Rivaroxaban (Xarelto) 10 mg GT DAILY [facility] Stop: 11/21/16 10:59 Last Admin: 10/10/16 08:22 Dose: 10 mg Vitamin A (Vitamin A & D) 5 gm TP DAILY [facility] Stop: 11/21/16 14:59 Last Admin: 10/09/16 10:04 Dose: 5 gm Zinc Sulfate (Zinc Sulfate) 220 mg GT DAILY [facility] Stop: 11/21/16 08:59 Last Admin: 10/10/16 08:22 Dose: 220 mg General: lethargic, vegetative HEENT: NC/AT, PERRLA Neck: Supple, No JVD Lungs: congested, rales, ronchi Cardiovascular: RRR, Normal S1, Normal S2 Abdomen: soft non-tender, globular, +GT, positive bowel sound Extremities: excoriation, contracture, ulcers stage 4 Neurological: unable to follow command - Procedures Procedures: Procedures Procedure Code Date BLOOD TRANSFUSION SERVICE 96799 03/06/16 BYPASS DESCENDING COLON TO CUTANEOUS, OPEN APPROACH [id number] 09/21/16 CHANGE GASTROSTOMY TUBE 54855 06/09/14 COLOSTOMY 88968 09/21/16 AGNIESZKA BONE 20 SQ CM/< 13814 01/28/15 DIAGNOSTIC COLONOSCOPY 08338 03/06/16 EGD BIOPSY SINGLE/MULTIPLE 02700 03/06/16 EXCISION OF DUODENUM, ENDO, DIAGN [id number] 03/06/16 EXCISION OF SACRUM, OPEN APPROACH [id number] 09/21/16 EXCISION OF STOMACH, ENDO, DIAGN [id number] 03/06/16 IMMOBILIZ/WOUND ATTN NEC 93.59 01/28/15 INSERT INDWELLING CATH 57.94 10/18/05 INSERT TEMP BLADDER CATH 09792 10/18/05 INSPECTION OF LOWER INTESTINAL TRACT, ENDO [id number] 03/06/16 INSPECTION OF UPPER INTESTINAL TRACT, ENDO [id number] 10/27/15 LOC EXC BONE LESION NEC 77.69 01/28/15 PACKED CELL TRANSFUSION 99.04 10/20/14 REMOVAL OF PRESSURE SORE 13193 09/21/16 REPLACE GASTROSTOMY TUBE 97.02 06/09/14 RESPIRATORY VENTILATION, LESS THAN 24 CONSECUTIVE HOURS [id number] 09/21/16 TRANSFUSE NONAUT RED BLOOD CELLS IN PERIPH VEIN, PERC [id number] 06/16/16 VENT MGMT INPAT INIT DAY 64710 09/21/16 Internal Medicine Assmt/Plan - Assessment Assessment: sepsis shock sp levophed pmn acute on crf anemia leukocytosis hypoglycemia mr cp elevated ammonia rue edema, ephysema poor iv access ducub ulcer 4 sp colostomy - Plan Plan: vent weaning cont on iv abx, on amikacin and vanco will hold all routine insulin cont on levophed prn critical poor access, will order midline ddw rn see order seen by dr martínez will check us, ct noted Nutritional Asmnt/Malnutr-PDOC - Dietary Evaluation Malnutrition Findings (Please click <Entered> for more info): Nutritional Asmnt/Malnutrition Start: 09/22/16 12: 31 Text: Status: Complete Freq: Document 09/22/16 12:32 GSUN (Rec: 09/22/16 13:00 GSUN [id number]) Nutritional Asmnt/Malnutrition Patient General Information Nutritional Screening High Risk Screening Diagnosis Per ER: sepsis, UTI, HTN, possible PNA, elevated troponin Pertinent Medical Hx/Surgical Hx Per ER: HTN, DM, dyslipidemia, anemia, 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 RD consult for decubitus ulcer and trigger for BG >180. Discussed with RN regarding tube feeding regimens when tube feeding resumed. Unable to obtain new weight due to bedscale not properly calibrated. Current Diet Order/ Nutrition Support NPO Pertinent Medications Vitamin C, lipitor, D5, folate , novolog, novolin, cephulac, MOM, zofran, vancomycin, vitamin A and D, zinc sulfate Pertinent Labs 09/21: BUN 112H, creatinine 1. 6H, glucose 263H, A1c 6.5H, troponin 1.96H 09/22: Potassium 2.8L, BUN 74H (improving), creatinine 1.1 ( improved), glucose 278H POC glucose 58-303H Nutritional Hx/Data Height 1.45 m Height (Calculated Centimeters) 144.8 Current Weight (lbs) 43.998 kg Weight (Calculated Kilograms) 44.0 Weight (Calculated Grams) 02212.5 Weight Status Approriate GI Symptoms Food Allergies No Cultural/Ethnic/[employer] Belief Unknown. 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 Problem Problem Altered nutrition related laboratory values related to Etiology DM aeb Signs/Symptoms: episodes of hypoglycemia and hyperglycemia, 58L and 303H 1. Problem Problem Increased protein and kcal needs related to Etiology hypermetabolic state aeb Signs/Symptoms: sepsis, possible PNA, mulitple ulcerations Intervention/Recommendation Comments 1. Recommend Diabetisource 50ml/hr x 24hrs, providing 1440kcal and 72g protein, for glycemic control and to better meet nutritional needs. 2. Recommend 1 packet Arginaid BID via g-tube for multiple ulcerations wound healing. 3. If episodes of hypoglycemia persists, consider without carbohydrate restriction with Fibersource HN at 50ml/hrs x 24hrs. Expected Outcomes/Goals Expected Outcomes/Goals 1. Pt to meet 100% of estimated nutritional needs on tube feeding + Arginaid with tolerance. Physician Parameters for PEM Serum Albumin (g/dl) 3.5 - 5.0 (Normal)
[2016-10-10] MEDS ORDERED: INSULIN ASPART, RECOMBINANT 100 UNITS/ML SUBQ SCH ×2 (13:00)
[2016-10-10] MEDS: Fluconazole 200mg/100mL 200 MG/100 ML BAG IV SCH (13:38)
--- NOTE | 2016-10-10 14:34 | Diagnostic Imaging Report ---
Upper GI (Limited) HISTORY: Fistula, gastrostomy tube Water-soluble contrast was instilled through the patient's gastrostomy tube. There is opacification of the gastric lumen. No leakage/extravasation identified. No evidence of fistula formation. 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 Exact relationship to kidney or bowel is unclear. IMPRESSION: 1. Opacification of the gastric lumen with no evidence of extravasation or fistula formation.
[2016-10-10] MEDS: Sodium Chloride 0.9% 500 ML IV SCH (16:38)
[2016-10-10] MEDS ORDERED: INSULIN ASPART SLIDING SCALE 100 UNITS/ML UNIT SUBQ SCH (18:00)
[2016-10-11] MEDS: INSULIN ASPART, RECOMBINANT 100 UNITS/ML SUBQ SCH ×5 (00:35→23:42)
[2016-10-11] MEDS: Ipratropium Neb 0.5 mg/2.5 mL UD HHN SCH ×6 (03:00→22:52)
[2016-10-11] MEDS: Albuterol Nebulizer 2.5mg/3mL HHN SCH ×6 (03:00→22:52)
[2016-10-11] MEDS: INSULIN HUMAN ISOPHANE (NPH) 100 UNITS/ML SUBQ SCH ×2 (06:53→17:24)
[2016-10-11] MEDS: Lactulose 10 Gm/15 mL 30mL UDC GT SCH (09:50)
[2016-10-11] MEDS: Lactobacillus Rhamnosus 10 Billion CFU Capsule PO SCH (09:50)
[2016-10-11] MEDS: Vitamin A/Vitamin D 5 gm Packet TP SCH (09:50)
[2016-10-11] MEDS: Multivitamin w/ Minerals Tab GT SCH (09:51)
[2016-10-11] MEDS: NYSTATIN 100000 UNITS/GM POWD TP SCH ×2 (09:51→17:25)
[2016-10-11] MEDS: Metoclopramide 5 mg/mL 2mL Vial IVP SCH ×3 (09:52→20:43)
--- NOTE | 2016-10-11 12:41 | Internal Medicine Prog Note ---
Internal Medicine Subjective - Subjective Service Date: 10/11/16 (awake, noninteractive on nasal cannula no respiratory distress) Patient seen and examined:: with staff Patient is:: awake, non-interactive Per staff patient is:: no adverse event Internal Medicine Objective - Results Result Diagrams: 10/10/16 11:30 10/10/16 11:30 Recent Labs: Laboratory Last Values WBC 7.2 Th/cmm (4.8-10.8) 10/10/16 11:30 RBC 3.75 Mil/cmm (3.80-5.10) L 10/10/16 11:30 Hgb 11.2 gm/dL (11.7-15.5) L 10/10/16 11:30 Hct 33.1 % (35.0-45.0) L 10/10/16 11:30 MCV 88.4 fl (81-100) 10/10/16 11:30 MCH 30.0 pg (27.0-31.0) 10/10/16 11:30 MCHC Differential 33.9 pg (28.0-36.0) 10/10/16 11:30 RDW 14.5 % (11.5-20.0) 10/10/16 11:30 Plt Count 145 Th/cmm (150-400) L 10/10/16 11:30 MPV 9.2 fl 10/10/16 11:30 Neutrophils % 64.1 % (40.0-80.0) 10/10/16 11:30 Band Neutrophils % 6 % (0-10) 10/06/16 04:50 Lymphocytes % 16.3 % (20.0-50.0) L 10/10/16 11:30 Monocytes % 11.4 % (2.0-10.0) H 10/10/16 11:30 Eosinophils % 8.1 % (0.0-5.0) H 10/10/16 11:30 Basophils % 0.1 % (0.0-2.0) 10/10/16 11:30 Neutrophils (Manual) 63 % (40-80) 10/06/16 04:50 Lymphocytes 15 % (20-50) L 10/06/16 04:50 Monocytes 9 % (2-10) 10/06/16 04:50 Eosinophils 6 % (0-5) H 10/06/16 04:50 Basophils 1 % (0-3) 10/06/16 04:50 Platelet Estimate DECREASED PLATELETS (NORMAL) 10/06/16 04:50 Platelet Morphology NORMAL (NORMAL) 10/06/16 04:50 Polychromasia 1+ 09/22/16 04:49 Anisocytosis 1+ 10/06/16 04:50 RBC Morph Micro Appear ABNORMAL (NORMAL) 10/06/16 04:50 PT 10.3 SECONDS (9.5-11.5) 10/03/16 04:45 INR 0.99 (0.5-1.4) 10/03/16 04:45 PTT (Actin FS) 26.3 SECONDS (26.0-38.0) 10/03/16 04:45 Specimen Source Arterial 10/08/16 13:40 Sample Site Left Radial 10/08/16 13:40 pH 7.43 (7.35-7.45) 10/08/16 13:40 pCO2 49.0 mmHg (35.0-45.0) H 10/08/16 13:40 pO2 154.0 mmHg (80.0-100.0) H 10/08/16 13:40 HCO3 32.5 mEq/L (20.0-26.0) H 10/08/16 13:40 Base Excess 7.0 mEq/L (-3.0-3.0) H 10/08/16 13:40 O2 Saturation 99.0 % (92.0-100.0) 10/08/16 13:40 Emmanuel Test YES 10/08/16 13:40 Vent Rate 12 10/08/16 13:40 Inspired O2 60 10/08/16 13:40 Tidal Volume NA 10/08/16 13:40 PEEP NA 10/08/16 13:40 Pressure (ins/psv/peep) NA 10/08/16 13:40 Critical Value E.MCARTHUR 10/08/16 13:40 Sodium 139 mEq/L (136-145) 10/10/16 11:30 Potassium 4.0 mEq/L (3.5-5.1) 10/10/16 11:30 Chloride 104 mEq/L (98-107) 10/10/16 11:30 Carbon Dioxide 31.5 mEq/L (21.0-31.0) H 10/10/16 11:30 Anion Gap 7.5 (7.0-16.0) 10/10/16 11:30 BUN 48 mg/dL (7-25) H 10/10/16 11:30 Creatinine 0.7 mg/dL (0.6-1.2) 10/10/16 11:30 Est GFR ( Amer) > 60.0 ml/min (>90) 10/10/16 11:30 Est GFR (Non-Af Amer) > 60.0 ml/min 10/10/16 11:30 BUN/Creatinine Ratio 68.6 10/10/16 11:30 Glucose 323 mg/dL (70-105) H 10/10/16 11:30 POC Glucose 319 MG/DL (70 - 105) H 10/11/16 06:16 Hemoglobin A1c % 6.5 % (4.0-6.0) H 09/21/16 09:13 Whole Bld Lactic Acid 0.96 mmol/L (0.60-2.00) 09/21/16 22:05 Calcium 10.3 mg/dL (8.6-10.3) 10/10/16 11:30 Magnesium 2.0 mg/dL (1.9-2.7) 10/07/16 04:40 Total Bilirubin 0.4 mg/dL (0.3-1.0) 10/10/16 11:30 Direct Bilirubin 0.07 mg/dL (0.0-0.2) 09/27/16 04:56 AST 17 U/L (13-39) 10/10/16 11:30 ALT 15 U/L (7-52) 10/10/16 11:30 Alkaline Phosphatase 161 U/L (34-104) H 10/10/16 11:30 Ammonia 52 umol/L (16-53) 10/03/16 04:45 Troponin I 0.79 ng/mL (0.01-0.05) H* D 09/21/16 22:05 B-Natriuretic Peptide 64.0 pg/mL (5.0-100.0) 10/03/16 04:45 Total Protein 6.9 gm/dL (6.0-8.3) 10/10/16 11:30 Albumin 2.8 gm/dL (3.7-5.3) L 10/10/16 11:30 Globulin 4.1 gm/dL 10/10/16 11:30 Albumin/Globulin Ratio 0.7 (1.0-1.8) L 10/10/16 11:30 Urine Source CATH 10/01/16 09:30 Urine Color YELLOW 10/01/16 09:30 Urine Clarity SL. CLOUDY (CLEAR) 10/01/16 09:30 Urine pH 7.5 10/01/16 09:30 Ur Specific [place] 1.020 (1.005-1.030) 10/01/16 09:30 Urine Protein 100 mg/dL (NEGATIVE) H 10/01/16 09:30 Urine Glucose (UA) NEGATIVE mg/dL (NEGATIVE) 10/01/16 09:30 Urine Ketones NEGATIVE mg/dL (NEGATIVE) 10/01/16 09:30 Urine Blood SMALL (NEGATIVE) H 10/01/16 09:30 Urine Nitrate NEGATIVE (NEGATIVE) 10/01/16 09:30 Urine Bilirubin NEGATIVE (NEGATIVE) 10/01/16 09:30 Urine Urobilinogen 0.2 E.U./dL (0.2 - 1.0) 10/01/16 09:30 Ur Leukocyte Esterase SMALL (NEGATIVE) H 10/01/16 09:30 Urine RBC 5-10 /hpf (0-5) H 10/01/16 09:30 Urine WBC 25-50 /hpf (0-5) H 10/01/16 09:30 Ur Epithelial Cells OCCASIONAL /lpf (FEW) 10/01/16 09:30 Urine Bacteria FEW /hpf (NONE SEEN) 10/01/16 09:30 Amikacin Peak 32.3 ug/mL (20.0-30.0) H 10/07/16 09:40 Amikacin Trough 3.3 ug/mL (1.0-8.0) 10/08/16 09:39 Vancomycin Trough 20.4 ug/mL (10-20) H 09/23/16 16:20 Digoxin 2.3 ng/ml (0.8-2.0) H 09/29/16 07:55 Blood Type O POSITIVE 10/06/16 09:45 Antibody Screen NEGATIVE 10/06/16 09:45 Crossmatch See Detail 10/06/16 09:45 - Physical Exam Vitals and I&O: Vital Signs Temp 99.6 F 10/11/16 06:00 Pulse 108 10/11/16 11:33 Resp 14 10/11/16 11:33 BP 122/61 10/11/16 06:00 Pulse Ox 97 10/11/16 11:33 Intake & Output 10/10/16 10/11/16 10/11/16 18:59 06:59 18:59 Intake Total 381.2 2040 Output Total 1070 Balance 381.2 970 Intake: Intake, IV Amount 201.2 Amikacin 300 mg In 101.2 Dextrose 5% 100 ml @ 200 mls/hr IV Q24H [facility] Rx#: [id number] Fluconazole 200mg/100mL 100 200 mg In 100 ml @ 100 mls/hr IV Q24HR [facility] Rx#: [id number] Tube Feeding 60 1440 Other 120 600 Output: Urine 1020 Stool 50 Other: # Bowel Movements 1 Active Medications: Current Medications Acetaminophen (Tylenol 650mg/20.3ml Suspension) 650 mg GT Q4H PRN PRN Reason: MILD PAIN AND FEVER >101 Stop: 11/20/16 12:41 Last Admin: 10/11/16 03:46 Dose: 650 mg Acetylcysteine (Mucomyst 20%) 3 ml HHN Q4HR [facility] Stop: 11/24/16 15:59 Last Admin: 10/11/16 10:59 Dose: 3 ml Albuterol Sulfate (Albuterol 2.5mg/3ml Neb Ud) 2.5 mg HHN Q4HRT [facility] Stop: 11/25/16 10:59 Last Admin: 10/11/16 10:59 Dose: 2.5 mg Ascorbic Acid (Vitamin C) 500 mg GT DAILY [facility] Stop: 11/21/16 08:59 Last Admin: 10/11/16 09:50 Dose: 500 mg Atorvastatin Calcium (Lipitor) 40 mg PO HS [facility] Stop: 12/07/16 20:59 Last Admin: 10/10/16 21:20 Dose: 40 mg Dextrose (D50w) 50 ml IVP PRN PRN PRN Reason: blood sugar < 60 Stop: 11/25/16 21:35 Last Admin: 09/27/16 21:49 Dose: 50 ml Diltiazem HCl (Cardizem) 20 mg IVP Q4H PRN PRN Reason: HR Greater than 130 per min Stop: 11/20/16 12:45 Last Admin: 09/28/16 08:05 Dose: 20 mg Folic Acid (Folate) 1 mg GT DAILY [facility] Stop: 11/21/16 08:59 Last Admin: 10/11/16 09:51 Dose: 1 mg Guaifenesin (Robitussin) 200 mg GT Q4HR PRN PRN Reason: Cough or Congestion Stop: 11/20/16 12:41 Last Admin: 10/07/16 12:59 Dose: 200 mg Hydromorphone HCl (Dilaudid) 0.5 mg IVP Q4HR PRN PRN Reason: pain Stop: 11/26/16 19:54 Last Admin: 10/10/16 22:07 Dose: 0.5 mg Norepinephrine Bitartrate 4 mg (/ Dextrose) 254 mls @ 38.1 mls/hr IV TITR PRN; Protocol; 10 MCG/MIN PRN Reason: BP MAINTENANCE (PER PROTOCOL) Stop: 11/20/16 23:39 Last Admin: 09/28/16 12:18 Dose: 4 mcg/min, 15.24 mls/hr Fluconazole (Diflucan) 200 mg in 100 mls @ 100 mls/hr IV Q24HR [facility] Stop: 12/04/16 13:59 Last Infusion: 10/10/16 14:40 Dose: Infused Amikacin Sulfate 300 mg/ (Dextrose) 101.2 mls @ 200 mls/hr IV Q24H [facility] Stop: 12/08/16 15:59 Last Infusion: 10/10/16 16:40 Dose: Infused Sodium Chloride (Nacl 0.9%) 500 mls @ 10 mls/hr IV .Q24H [facility] Stop: 12/09/16 16:29 Last Admin: 10/10/16 16:38 Dose: 10 mls/hr Insulin Aspart (Novolog) 0 units SUBQ Q6HR [facility] PRN Reason: Protocol Stop: 12/09/16 17:59 Last Admin: 10/11/16 06:22 Dose: 6 units Insulin Human NPH (Novolin N) 30 units SUBQ BIDAC [facility] PRN Reason: Protocol Stop: 12/07/16 16:29 Last Admin: 10/11/16 06:53 Dose: 30 units Ipratropium [place] (Atrovent Neb 0.5mg/2.5ml) 0.5 mg HHN Q4HRT [facility] Stop: 11/25/16 10:59 Last Admin: 10/11/16 10:59 Dose: 0.5 mg Lactobacillus Rhamnosus (Culturelle) 1 each PO DAILY [facility] Stop: 11/24/16 08:59 Last Admin: 10/11/16 09:50 Dose: 1 each Lactulose (Cephulac) 20 gm GT DAILY [facility] Stop: 11/27/16 08:59 Last Admin: 10/11/16 09:50 Dose: 20 gm Loperamide HCl (Imodium) 2 mg GT Q4H PRN PRN Reason: DIARRHEA Stop: 11/20/16 15:12 Magnesium Hydroxide (Milk Of Magnesia) 30 ml GT DAILY PRN PRN Reason: Constipation Stop: 11/20/16 12:41 Metoclopramide HCl (Reglan) 5 mg IVP TID [facility] Stop: 11/29/16 13:59 Last Admin: 10/11/16 09:52 Dose: 5 mg Miscellaneous (Probiotic Screen) 1 ea PRN PRN PRN Reason: PROTOCOL Stop: 11/24/16 08:48 Miscellaneous (Clinical Monitoring) 1 ea PRN PRN PRN Reason: XARELTO Stop: 11/28/16 11:19 Nystatin (Nystop) 100,000 units TP BID [facility] Stop: 11/21/16 08:59 Last Admin: 10/11/16 09:51 Dose: 100,000 units Ondansetron HCl (Zofran) 4 mg IV Q8H PRN PRN Reason: Nausea / Vomiting Stop: 11/20/16 12:45 Rivaroxaban (Xarelto) 10 mg GT DAILY [facility] Stop: 11/21/16 10:59 Last Admin: 10/11/16 09:51 Dose: 10 mg Vitamin A (Vitamin A & D) 5 gm TP DAILY [facility] Stop: 11/21/16 14:59 Last Admin: 10/11/16 09:50 Dose: 5 gm Zinc Sulfate (Zinc Sulfate) 220 mg GT DAILY [facility] Stop: 11/21/16 08:59 Last Admin: 10/11/16 09:51 Dose: 220 mg General: alert HEENT: NC/AT Neck: Supple Lungs: ronchi Cardiovascular: RRR, Normal S1, Normal S2, without murmur Abdomen: soft non-tender Extremities: clear - Procedures Procedures: Procedures Procedure Code Date BLOOD TRANSFUSION SERVICE 54199 03/06/16 BYPASS DESCENDING COLON TO CUTANEOUS, OPEN APPROACH [id number] 09/21/16 CHANGE GASTROSTOMY TUBE 01951 06/09/14 COLOSTOMY 37169 09/21/16 AGNIESZKA BONE 20 SQ CM/< 84875 01/28/15 DIAGNOSTIC COLONOSCOPY 82761 03/06/16 EGD BIOPSY SINGLE/MULTIPLE 24467 03/06/16 EXCISION OF DUODENUM, ENDO, DIAGN [id number] 03/06/16 EXCISION OF SACRUM, OPEN APPROACH [id number] 09/21/16 EXCISION OF STOMACH, ENDO, DIAGN [id number] 03/06/16 IMMOBILIZ/WOUND ATTN NEC 93.59 01/28/15 INSERT INDWELLING CATH 57.94 10/18/05 INSERT TEMP BLADDER CATH 60060 10/18/05 INSPECTION OF LOWER INTESTINAL TRACT, ENDO [id number] 03/06/16 INSPECTION OF UPPER INTESTINAL TRACT, ENDO [id number] 10/27/15 LOC EXC BONE LESION NEC 77.69 01/28/15 PACKED CELL TRANSFUSION 99.04 10/20/14 REMOVAL OF PRESSURE SORE 21162 09/21/16 REPLACE GASTROSTOMY TUBE 97.02 06/09/14 RESPIRATORY VENTILATION, LESS THAN 24 CONSECUTIVE HOURS [id number] 09/21/16 TRANSFUSE NONAUT RED BLOOD CELLS IN PERIPH VEIN, PERC 71012I4 06/16/16 VENT MGMT INPAT INIT DAY 00862 09/21/16 Internal Medicine Assmt/Plan - Assessment Assessment: sepsis shock pmn acute on crf anemia leukocytosis hypoglycemia mr cp elevated ammonia ESBL URINE MRSA NARES - Plan Plan: bipap prn monitor for any respiratory distress f/u labs in am ivabx bronchodilators wound care Nutritional Asmnt/Malnutr-PDOC - Dietary Evaluation Malnutrition Findings (Please click <Entered> for more info): Nutritional Asmnt/Malnutrition Start: 09/22/16 12: 31 Text: Status: Complete Freq: Document 09/22/16 12:32 GSUN (Rec: 09/22/16 13:00 [id number] [id number]) Nutritional Asmnt/Malnutrition Patient General Information Nutritional Screening High Risk Screening Diagnosis Per ER: sepsis, UTI, HTN, possible PNA, elevated troponin Pertinent Medical Hx/Surgical Hx Per ER: HTN, DM, dyslipidemia, anemia, 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 RD consult for decubitus ulcer and trigger for BG >180. Discussed with RN regarding tube feeding regimens when tube feeding resumed. Unable to obtain new weight due to bedscale not properly calibrated. Current Diet Order/ Nutrition Support NPO Pertinent Medications Vitamin C, lipitor, D5, folate , novolog, novolin, cephulac, MOM, zofran, vancomycin, vitamin A and D, zinc sulfate Pertinent Labs 09/21: BUN 112H, creatinine 1. 6H, glucose 263H, A1c 6.5H, troponin 1.96H 09/22: Potassium 2.8L, BUN 74H (improving), creatinine 1.1 ( improved), glucose 278H POC glucose 58-303H Nutritional Hx/Data Height 4 ft 9 in Height (Calculated Centimeters) 144.8 Current Weight (lbs) 97 lb Weight (Calculated Kilograms) 44.0 Weight (Calculated Grams) 29003.5 Weight Status Approriate GI Symptoms Food Allergies No Cultural/Ethnic/Jainism Belief Unknown. Usual diet at home [facility]: glucerna 1.2 at 60ml/hr x 20hrs with 200ml flush Q4hrs Skin Integrity/Comment: rail walker: ulceration sacrum, right tow, right foot, left foot Estimated Nutritional Goals BEE in Kcals: Using Current wt Calories/Kcals/Kg 30-35kcal/kg Kcals Calculated 1320-1544kcal Protein: Using Current wt Protein g/k.5-1.7g/kg Protein Calculated 66-75g Fluid: ml 1320-1544ml (1ml/kcal) Nutritional Problem 2. Problem Problem Altered nutrition related laboratory values related to Etiology DM aeb Signs/Symptoms: episodes of hypoglycemia and hyperglycemia, 58L and 303H 1. Problem Problem Increased protein and kcal needs related to Etiology hypermetabolic state aeb Signs/Symptoms: sepsis, possible PNA, mulitple ulcerations Intervention/Recommendation Comments 1. Recommend Diabetisource 50ml/hr x 24hrs, providing 1440kcal and 72g protein, for glycemic control and to better meet nutritional needs. 2. Recommend 1 packet Arginaid BID via g-tube for multiple ulcerations wound healing. 3. If episodes of hypoglycemia persists, consider without carbohydrate restriction with Fibersource HN at 50ml/hrs x 24hrs. Expected Outcomes/Goals Expected Outcomes/Goals 1. Pt to meet 100% of estimated nutritional needs on tube feeding + Arginaid with tolerance. Physician Parameters for PEM Serum Albumin (g/dl) 3.5 - 5.0 (Normal)
[2016-10-11] MEDS: Fluconazole 200mg/100mL 200 MG/100 ML BAG IV SCH (14:22)
[2016-10-11] MEDS: Sodium Chloride 0.9% 500 ML IV SCH (18:59)
[2016-10-12] MEDS: HYDROmorphone 1 mg/mL 1mL Syr IVP PRN (01:15)
[2016-10-12] MEDS: Albuterol Nebulizer 2.5mg/3mL HHN SCH ×6 (03:43→22:51)
[2016-10-12] MEDS: Ipratropium Neb 0.5 mg/2.5 mL UD HHN SCH ×6 (03:43→22:51)
[2016-10-12 05:25] LABS: BUN - UREA NITROGEN 50 mg/dL (7-25); BUN/CREATININE RATIO 71.4; CALCIUM SERUM 9.9 mg/dL (8.6-10.3); CARBON DIOXIDE 33.3 mEq/L (21.0-31.0); CHLORIDE 108 mEq/L (98-107); CREATININE - SERUM 0.7 mg/dL (0.6-1.2); GLUCOSE 210 mg/dL (70-105); POTASSIUM SERUM 4.3 mEq/L (3.5-5.1); SODIUM SERUM 144 mEq/L (136-145)
[2016-10-12 05:39] LABS: % BASOPHILS 0.5 % (0.0-2.0); % EOSINOPHILS 6.9 % (0.0-5.0); % LYMPHOCYTES 19.1 % (20.0-50.0); % NEUTROPHILS 64.5 % (40.0-80.0); HEMOGLOBIN 9.9 gm/dL (11.7-15.5); MEAN CELL VOLUME 87.7 fl (81-100); MEAN CORPUSCULAR HEMOGLOBIN 30.2 pg (27.0-31.0); MEAN CORPUSCULAR HGB CONC 34.5 pg (28.0-36.0); MEAN PLATELET VOLUME 9.4 fl; NEUTROPHILE ABSOLUTE 4.2 Th/cmm (1.8-8.0); PLATELET COUNT 144 Th/cmm (150-400); RED BLOOD COUNT 3.27 Mil/cmm (3.80-5.10); RED CELL DISTRIBUTION WIDTH 14.4 % (11.5-20.0); WHITE BLOOD COUNT 6.6 Th/cmm (4.8-10.8)
[2016-10-12 06:10] LABS: HEMATOCRIT 28.7 % (35.0-45.0)
[2016-10-12] MEDS: INSULIN ASPART, RECOMBINANT 100 UNITS/ML SUBQ SCH ×3 (06:23→17:19)
[2016-10-12] MEDS: INSULIN HUMAN ISOPHANE (NPH) 100 UNITS/ML SUBQ SCH ×2 (06:31→17:20)
[2016-10-12] MEDS: Lactulose 10 Gm/15 mL 30mL UDC GT SCH (09:01)
[2016-10-12] MEDS: Multivitamin w/ Minerals Tab GT SCH (09:02)
[2016-10-12] MEDS: NYSTATIN 100000 UNITS/GM POWD TP SCH ×2 (09:02→17:21)
[2016-10-12] MEDS: Lactobacillus Rhamnosus 10 Billion CFU Capsule PO SCH (09:02)
[2016-10-12] MEDS: Vitamin A/Vitamin D 5 gm Packet TP SCH (09:04)
[2016-10-12] MEDS: Metoclopramide 5 mg/mL 2mL Vial IVP SCH ×3 (10:01→21:41)
--- NOTE | 2016-10-12 11:45 | General Progress Note ---
Subjective - Review of Systems Service Date: 10/12/16 Events since last encounter: tolerating feedings having good colostomy output Subjective: VS stable urine output adequate extubated, on air O2 sat ok Hb 7.8 gm, might need PRBC dressings dry Objective - Results Result Diagrams: 10/12/16 04:40 10/12/16 04:40 Recent Labs: Laboratory Last Values WBC 6.6 Th/cmm (4.8-10.8) 10/12/16 04:40 RBC 3.27 Mil/cmm (3.80-5.10) L 10/12/16 04:40 Hgb 9.9 gm/dL (11.7-15.5) L 10/12/16 04:40 Hct 28.7 % (35.0-45.0) L D 10/12/16 04:40 MCV 87.7 fl (81-100) 10/12/16 04:40 MCH 30.2 pg (27.0-31.0) 10/12/16 04:40 MCHC Differential 34.5 pg (28.0-36.0) 10/12/16 04:40 RDW 14.4 % (11.5-20.0) 10/12/16 04:40 Plt Count 144 Th/cmm (150-400) L 10/12/16 04:40 MPV 9.4 fl 10/12/16 04:40 Neutrophils % 64.5 % (40.0-80.0) 10/12/16 04:40 Band Neutrophils % 6 % (0-10) 10/06/16 04:50 Lymphocytes % 19.1 % (20.0-50.0) L 10/12/16 04:40 Monocytes % 9.0 % (2.0-10.0) 10/12/16 04:40 Eosinophils % 6.9 % (0.0-5.0) H 10/12/16 04:40 Basophils % 0.5 % (0.0-2.0) 10/12/16 04:40 Neutrophils (Manual) 63 % (40-80) 10/06/16 04:50 Lymphocytes 15 % (20-50) L 10/06/16 04:50 Monocytes 9 % (2-10) 10/06/16 04:50 Eosinophils 6 % (0-5) H 10/06/16 04:50 Basophils 1 % (0-3) 10/06/16 04:50 Platelet Estimate DECREASED PLATELETS (NORMAL) 10/06/16 04:50 Platelet Morphology NORMAL (NORMAL) 10/06/16 04:50 Polychromasia 1+ 09/22/16 04:49 Anisocytosis 1+ 10/06/16 04:50 RBC Morph Micro Appear ABNORMAL (NORMAL) 10/06/16 04:50 PT 10.3 SECONDS (9.5-11.5) 10/03/16 04:45 INR 0.99 (0.5-1.4) 10/03/16 04:45 PTT (Actin FS) 26.3 SECONDS (26.0-38.0) 10/03/16 04:45 Specimen Source Arterial 10/08/16 13:40 Sample Site Left Radial 10/08/16 13:40 pH 7.43 (7.35-7.45) 10/08/16 13:40 pCO2 49.0 mmHg (35.0-45.0) H 10/08/16 13:40 pO2 154.0 mmHg (80.0-100.0) H 10/08/16 13:40 HCO3 32.5 mEq/L (20.0-26.0) H 10/08/16 13:40 Base Excess 7.0 mEq/L (-3.0-3.0) H 10/08/16 13:40 O2 Saturation 99.0 % (92.0-100.0) 10/08/16 13:40 Emmanuel Test YES 10/08/16 13:40 Vent Rate 12 10/08/16 13:40 Inspired O2 60 10/08/16 13:40 Tidal Volume NA 10/08/16 13:40 PEEP NA 10/08/16 13:40 Pressure (ins/psv/peep) NA 10/08/16 13:40 Critical Value E.MCARTHUR 10/08/16 13:40 Sodium 144 mEq/L (136-145) 10/12/16 04:40 Potassium 4.3 mEq/L (3.5-5.1) 10/12/16 04:40 Chloride 108 mEq/L (98-107) H 10/12/16 04:40 Carbon Dioxide 33.3 mEq/L (21.0-31.0) H 10/12/16 04:40 Anion Gap 7.0 (7.0-16.0) 10/12/16 04:40 BUN 50 mg/dL (7-25) H 10/12/16 04:40 Creatinine 0.7 mg/dL (0.6-1.2) 10/12/16 04:40 Est GFR ( Amer) > 60.0 ml/min (>90) 10/12/16 04:40 Est GFR (Non-Af Amer) > 60.0 ml/min 10/12/16 04:40 BUN/Creatinine Ratio 71.4 10/12/16 04:40 Glucose 210 mg/dL (70-105) H 10/12/16 04:40 POC Glucose 214 MG/DL (70 - 105) H 10/12/16 06:16 Hemoglobin A1c % 6.5 % (4.0-6.0) H 09/21/16 09:13 Whole Bld Lactic Acid 0.96 mmol/L (0.60-2.00) 09/21/16 22:05 Calcium 9.9 mg/dL (8.6-10.3) 10/12/16 04:40 Magnesium 2.0 mg/dL (1.9-2.7) 10/07/16 04:40 Total Bilirubin 0.4 mg/dL (0.3-1.0) 10/10/16 11:30 Direct Bilirubin 0.07 mg/dL (0.0-0.2) 09/27/16 04:56 AST 17 U/L (13-39) 10/10/16 11:30 ALT 15 U/L (7-52) 10/10/16 11:30 Alkaline Phosphatase 161 U/L (34-104) H 10/10/16 11:30 Ammonia 52 umol/L (16-53) 10/03/16 04:45 Troponin I 0.79 ng/mL (0.01-0.05) H* D 09/21/16 22:05 B-Natriuretic Peptide 64.0 pg/mL (5.0-100.0) 10/03/16 04:45 Total Protein 6.9 gm/dL (6.0-8.3) 10/10/16 11:30 Albumin 2.8 gm/dL (3.7-5.3) L 10/10/16 11:30 Globulin 4.1 gm/dL 10/10/16 11:30 Albumin/Globulin Ratio 0.7 (1.0-1.8) L 10/10/16 11:30 Urine Source CATH 10/01/16 09:30 Urine Color YELLOW 10/01/16 09:30 Urine Clarity SL. CLOUDY (CLEAR) 10/01/16 09:30 Urine pH 7.5 10/01/16 09:30 Ur Specific [place] 1.020 (1.005-1.030) 10/01/16 09:30 Urine Protein 100 mg/dL (NEGATIVE) H 10/01/16 09:30 Urine Glucose (UA) NEGATIVE mg/dL (NEGATIVE) 10/01/16 09:30 Urine Ketones NEGATIVE mg/dL (NEGATIVE) 10/01/16 09:30 Urine Blood SMALL (NEGATIVE) H 10/01/16 09:30 Urine Nitrate NEGATIVE (NEGATIVE) 10/01/16 09:30 Urine Bilirubin NEGATIVE (NEGATIVE) 10/01/16 09:30 Urine Urobilinogen 0.2 E.U./dL (0.2 - 1.0) 10/01/16 09:30 Ur Leukocyte Esterase SMALL (NEGATIVE) H 10/01/16 09:30 Urine RBC 5-10 /hpf (0-5) H 10/01/16 09:30 Urine WBC 25-50 /hpf (0-5) H 10/01/16 09:30 Ur Epithelial Cells OCCASIONAL /lpf (FEW) 10/01/16 09:30 Urine Bacteria FEW /hpf (NONE SEEN) 10/01/16 09:30 Amikacin Peak 32.3 ug/mL (20.0-30.0) H 10/07/16 09:40 Amikacin Trough 3.3 ug/mL (1.0-8.0) 10/08/16 09:39 Vancomycin Trough 20.4 ug/mL (10-20) H 09/23/16 16:20 Digoxin 2.3 ng/ml (0.8-2.0) H 09/29/16 07:55 Blood Type O POSITIVE 10/06/16 09:45 Antibody Screen NEGATIVE 10/06/16 09:45 Crossmatch See Detail 10/06/16 09:45 - Physical Exam Vitals and I&O: Vital Signs Temp 97.5 F 10/12/16 08:00 Pulse 99 10/12/16 11:05 Resp 16 10/12/16 11:05 BP 133/73 10/12/16 11:00 Pulse Ox 99 10/12/16 11:05 Intake & Output 10/11/16 10/12/16 10/12/16 17:59 06:59 18:59 Intake Total Output Total Balance Intake: Intake, IV Amount Amikacin 300 mg In Dextrose 5% 100 ml @ 200 mls/hr IV Q24H [facility] Rx#: [id number] Fluconazole 200mg/100mL 200 mg In 100 ml @ 100 mls/hr IV Q24HR [facility] Rx#: [id number] Sodium Chloride 0.9% 500 ml @ 10 mls/hr IV .Q24H [facility] Rx#:[id number] Tube Feeding Other Output: Urine Other: # Bowel Movements Active Medications: Current Medications Acetaminophen (Tylenol 650mg/20.3ml Suspension) 650 mg GT Q4H PRN PRN Reason: MILD PAIN AND FEVER >101 Stop: 11/20/16 12:41 Last Admin: 10/11/16 20:43 Dose: 650 mg Acetylcysteine (Mucomyst 20%) 3 ml HHN Q4HR [facility] Stop: 11/24/16 15:59 Last Admin: 10/12/16 11:01 Dose: 3 ml Albuterol Sulfate (Albuterol 2.5mg/3ml Neb Ud) 2.5 mg HHN Q4HRT [facility] Stop: 11/25/16 10:59 Last Admin: 10/12/16 11:02 Dose: 2.5 mg Ascorbic Acid (Vitamin C) 500 mg GT DAILY [facility] Stop: 11/21/16 08:59 Last Admin: 10/12/16 09:02 Dose: 500 mg Atorvastatin Calcium (Lipitor) 40 mg PO HS [facility] Stop: 12/07/16 20:59 Last Admin: 10/11/16 20:43 Dose: 40 mg Dextrose (D50w) 50 ml IVP PRN PRN PRN Reason: blood sugar < 60 Stop: 11/25/16 21:35 Last Admin: 09/27/16 21:49 Dose: 50 ml Diltiazem HCl (Cardizem) 20 mg IVP Q4H PRN PRN Reason: HR Greater than 130 per min Stop: 11/20/16 12:45 Last Admin: 09/28/16 08:05 Dose: 20 mg Folic Acid (Folate) 1 mg GT DAILY [facility] Stop: 11/21/16 08:59 Last Admin: 10/12/16 09:02 Dose: 1 mg Guaifenesin (Robitussin) 200 mg GT Q4HR PRN PRN Reason: Cough or Congestion Stop: 11/20/16 12:41 Last Admin: 10/07/16 12:59 Dose: 200 mg Norepinephrine Bitartrate 4 mg (/ Dextrose) 254 mls @ 38.1 mls/hr IV TITR PRN; Protocol; 10 MCG/MIN PRN Reason: BP MAINTENANCE (PER PROTOCOL) Stop: 11/20/16 23:39 Last Admin: 09/28/16 12:18 Dose: 4 mcg/min, 15.24 mls/hr Fluconazole (Diflucan) 200 mg in 100 mls @ 100 mls/hr IV Q24HR [facility] Stop: 12/04/16 13:59 Last Infusion: 10/11/16 15:25 Dose: Infused Amikacin Sulfate 300 mg/ (Dextrose) 101.2 mls @ 200 mls/hr IV Q24H [facility] Stop: 12/08/16 15:59 Last Infusion: 10/11/16 17:20 Dose: Infused Sodium Chloride (Nacl 0.9%) 500 mls @ 10 mls/hr IV .Q24H [facility] Stop: 12/09/16 16:29 Last Admin: 10/11/16 18:59 Dose: 10 mls/hr Insulin Aspart (Novolog) 0 units SUBQ Q6HR [facility] PRN Reason: Protocol Stop: 12/09/16 17:59 Last Admin: 10/12/16 06:23 Dose: 2 units Insulin Human NPH (Novolin N) 30 units SUBQ BIDAC [facility] PRN Reason: Protocol Stop: 12/07/16 16:29 Last Admin: 10/12/16 06:31 Dose: 30 units Ipratropium [place] (Atrovent Neb 0.5mg/2.5ml) 0.5 mg HHN Q4HRT [facility] Stop: 11/25/16 10:59 Last Admin: 10/12/16 11:01 Dose: 0.5 mg Lactobacillus Rhamnosus (Culturelle) 1 each PO DAILY [facility] Stop: 11/24/16 08:59 Last Admin: 10/12/16 09:02 Dose: 1 each Lactulose (Cephulac) 20 gm GT DAILY [facility] Stop: 11/27/16 08:59 Last Admin: 10/12/16 09:01 Dose: 20 gm Loperamide HCl (Imodium) 2 mg GT Q4H PRN PRN Reason: DIARRHEA Stop: 11/20/16 15:12 Magnesium Hydroxide (Milk Of Magnesia) 30 ml GT DAILY PRN PRN Reason: Constipation Stop: 11/20/16 12:41 Metoclopramide HCl (Reglan) 5 mg IVP TID [facility] Stop: 11/29/16 13:59 Last Admin: 10/12/16 10:01 Dose: 5 mg Miscellaneous (Probiotic Screen) 1 ea PRN PRN PRN Reason: PROTOCOL Stop: 11/24/16 08:48 Miscellaneous (Clinical Monitoring) 1 [facility] PRN PRN PRN Reason: XARELTO Stop: 11/28/16 11:19 Nystatin (Nystop) 100,000 units TP BID [facility] Stop: 11/21/16 08:59 Last Admin: 10/12/16 09:02 Dose: 100,000 units Ondansetron HCl (Zofran) 4 mg IV Q8H PRN PRN Reason: Nausea / Vomiting Stop: 11/20/16 12:45 Rivaroxaban (Xarelto) 10 mg GT DAILY [facility] Stop: 11/21/16 10:59 Last Admin: 10/12/16 09:02 Dose: 10 mg Vitamin A (Vitamin A & D) 5 gm TP DAILY [facility] Stop: 11/21/16 14:59 Last Admin: 10/12/16 09:04 Dose: 5 gm Zinc Sulfate (Zinc Sulfate) 220 mg GT DAILY [facility] Stop: 11/21/16 08:59 Last Admin: 10/12/16 09:02 Dose: 220 mg - Procedures Procedures: Procedures Procedure Code Date BLOOD TRANSFUSION SERVICE 83769 03/06/16 BYPASS DESCENDING COLON TO CUTANEOUS, OPEN APPROACH [id number] 09/21/16 CHANGE GASTROSTOMY TUBE 69248 06/09/14 COLOSTOMY 67753 09/21/16 AGNIESZKA BONE 20 SQ CM/< 87444 01/28/15 DIAGNOSTIC COLONOSCOPY 97536 03/06/16 EGD BIOPSY SINGLE/MULTIPLE 82737 03/06/16 EXCISION OF DUODENUM, ENDO, DIAGN [id number] 03/06/16 EXCISION OF SACRUM, OPEN APPROACH [id number] 09/21/16 EXCISION OF STOMACH, ENDO, DIAGN [id number] 03/06/16 IMMOBILIZ/WOUND ATTN NEC 93.59 01/28/15 INSERT INDWELLING CATH 57.94 10/18/05 INSERT TEMP BLADDER CATH 33663 10/18/05 INSPECTION OF LOWER INTESTINAL TRACT, ENDO [id number] 03/06/16 INSPECTION OF UPPER INTESTINAL TRACT, ENDO [id number] 10/27/15 LOC EXC BONE LESION NEC 77.69 01/28/15 PACKED CELL TRANSFUSION 99.04 10/20/14 REMOVAL OF PRESSURE SORE 43896 09/21/16 REPLACE GASTROSTOMY TUBE 97.02 06/09/14 RESPIRATORY VENTILATION, LESS THAN 24 CONSECUTIVE HOURS [id number] 09/21/16 TRANSFUSE NONAUT RED BLOOD CELLS IN PERIPH VEIN, PERC [id number] 06/16/16 VENT MGMT INPAT INIT DAY 97998 09/21/16 Assessment/Plan - Problem List Patient Problems: All Active Problems HYPOTENSION WITH TACHYCARDIA AND CONGEST (Acute) Anemia (Acute 03/06/16) D64.9 Dyspnea (Acute) R06.00 Fever, unspecified (Acute) R50.9 Hyperglycemia (Acute) R73.9 Hyperosmolality and/or hypernatremia (Acute) E87.0 Mental retardation (Acute) F79 Other abnormal clinical finding (Acute) R68.89 Pneumonia (Acute) J18.9 Staphylococcal sepsis (Acute) Uncontrolled diabetes mellitus (Acute) E11.65 Urinary tract infection (Acute) Nutritional Asmnt/Malnutr-PDOC - Dietary Evaluation Malnutrition Findings (Please click <Entered> for more info): Nutritional Asmnt/Malnutrition Start: 09/22/16 12: 31 Text: Status: Complete Freq: Document 09/22/16 12:32 GSUN (Rec: 09/22/16 13:00 [id number]) Nutritional Asmnt/Malnutrition Patient General Information Nutritional Screening High Risk Screening Diagnosis Per ER: sepsis, UTI, HTN, possible PNA, elevated troponin Pertinent Medical Hx/Surgical Hx Per ER: HTN, DM, dyslipidemia, anemia, 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 RD consult for decubitus ulcer and trigger for BG >180. Discussed with RN regarding tube feeding regimens when tube feeding resumed. Unable to obtain new weight due to bedscale not properly calibrated. Current Diet Order/ Nutrition Support NPO Pertinent Medications Vitamin C, lipitor, D5, folate , novolog, novolin, cephulac, MOM, zofran, vancomycin, vitamin A and D, zinc sulfate Pertinent Labs 09/21: BUN 112H, creatinine 1. 6H, glucose 263H, A1c 6.5H, troponin 1.96H 09/22: Potassium 2.8L, BUN 74H (improving), creatinine 1.1 ( improved), glucose 278H POC glucose 58-303H Nutritional Hx/Data Height 1.45 m Height (Calculated Centimeters) 144.8 Current Weight (lbs) 43.998 kg Weight (Calculated Kilograms) 44.0 Weight (Calculated Grams) 44995.5 Weight Status Approriate GI Symptoms Food Allergies No Cultural/Ethnic/Mandaen Belief Unknown. Usual diet at home [facility]: glucerna 1.2 at 60ml/hr x 20hrs with 200ml flush Q4hrs Skin Integrity/Comment: ambulatory service representative: ulceration sacrum, right tow, right foot, left foot Estimated Nutritional Goals BEE in Kcals: Using Current wt Calories/Kcals/Kg 30-35kcal/kg Kcals Calculated 1320-1544kcal Protein: Using Current wt Protein g/k.5-1.7g/kg Protein Calculated 66-75g Fluid: ml 1320-1544ml (1ml/kcal) Nutritional Problem 2. Problem Problem Altered nutrition related laboratory values related to Etiology DM aeb Signs/Symptoms: episodes of hypoglycemia and hyperglycemia, 58L and 303H 1. Problem Problem Increased protein and kcal needs related to Etiology hypermetabolic state aeb Signs/Symptoms: sepsis, possible PNA, mulitple ulcerations Intervention/Recommendation Comments 1. Recommend Diabetisource 50ml/hr x 24hrs, providing 1440kcal and 72g protein, for glycemic control and to better meet nutritional needs. 2. Recommend 1 packet Arginaid BID via g-tube for multiple ulcerations wound healing. 3. If episodes of hypoglycemia persists, consider without carbohydrate restriction with Fibersource HN at 50ml/hrs x 24hrs. Expected Outcomes/Goals Expected Outcomes/Goals 1. Pt to meet 100% of estimated nutritional needs on tube feeding + Arginaid with tolerance. Physician Parameters for PEM Serum Albumin (g/dl) 3.5 - 5.0 (Normal)
[2016-10-12] MEDS: Fluconazole 200mg/100mL 200 MG/100 ML BAG IV SCH (14:30)
--- NOTE | 2016-10-12 16:24 | Internal Medicine Prog Note ---
Internal Medicine Subjective - Subjective Service Date: 10/12/16 Patient seen and examined:: with staff Patient is:: awake, eyes closed Internal Medicine Objective - Results Result Diagrams: 10/12/16 04:40 10/12/16 04:40 Recent Labs: Laboratory Last Values WBC 6.6 Th/cmm (4.8-10.8) 10/12/16 04:40 RBC 3.27 Mil/cmm (3.80-5.10) L 10/12/16 04:40 Hgb 9.9 gm/dL (11.7-15.5) L 10/12/16 04:40 Hct 28.7 % (35.0-45.0) L D 10/12/16 04:40 MCV 87.7 fl (81-100) 10/12/16 04:40 MCH 30.2 pg (27.0-31.0) 10/12/16 04:40 MCHC Differential 34.5 pg (28.0-36.0) 10/12/16 04:40 RDW 14.4 % (11.5-20.0) 10/12/16 04:40 Plt Count 144 Th/cmm (150-400) L 10/12/16 04:40 MPV 9.4 fl 10/12/16 04:40 Neutrophils % 64.5 % (40.0-80.0) 10/12/16 04:40 Band Neutrophils % 6 % (0-10) 10/06/16 04:50 Lymphocytes % 19.1 % (20.0-50.0) L 10/12/16 04:40 Monocytes % 9.0 % (2.0-10.0) 10/12/16 04:40 Eosinophils % 6.9 % (0.0-5.0) H 10/12/16 04:40 Basophils % 0.5 % (0.0-2.0) 10/12/16 04:40 Neutrophils (Manual) 63 % (40-80) 10/06/16 04:50 Lymphocytes 15 % (20-50) L 10/06/16 04:50 Monocytes 9 % (2-10) 10/06/16 04:50 Eosinophils 6 % (0-5) H 10/06/16 04:50 Basophils 1 % (0-3) 10/06/16 04:50 Platelet Estimate DECREASED PLATELETS (NORMAL) 10/06/16 04:50 Platelet Morphology NORMAL (NORMAL) 10/06/16 04:50 Polychromasia 1+ 09/22/16 04:49 Anisocytosis 1+ 10/06/16 04:50 RBC Morph Micro Appear ABNORMAL (NORMAL) 10/06/16 04:50 PT 10.3 SECONDS (9.5-11.5) 10/03/16 04:45 INR 0.99 (0.5-1.4) 10/03/16 04:45 PTT (Actin FS) 26.3 SECONDS (26.0-38.0) 10/03/16 04:45 Specimen Source Arterial 10/08/16 13:40 Sample Site Left Radial 10/08/16 13:40 pH 7.43 (7.35-7.45) 10/08/16 13:40 pCO2 49.0 mmHg (35.0-45.0) H 10/08/16 13:40 pO2 154.0 mmHg (80.0-100.0) H 10/08/16 13:40 HCO3 32.5 mEq/L (20.0-26.0) H 10/08/16 13:40 Base Excess 7.0 mEq/L (-3.0-3.0) H 10/08/16 13:40 O2 Saturation 99.0 % (92.0-100.0) 10/08/16 13:40 Emmanuel Test YES 10/08/16 13:40 Vent Rate 12 10/08/16 13:40 Inspired O2 60 10/08/16 13:40 Tidal Volume NA 10/08/16 13:40 PEEP NA 10/08/16 13:40 Pressure (ins/psv/peep) NA 10/08/16 13:40 Critical Value E.MCARTHUR 10/08/16 13:40 Sodium 144 mEq/L (136-145) 10/12/16 04:40 Potassium 4.3 mEq/L (3.5-5.1) 10/12/16 04:40 Chloride 108 mEq/L (98-107) H 10/12/16 04:40 Carbon Dioxide 33.3 mEq/L (21.0-31.0) H 10/12/16 04:40 Anion Gap 7.0 (7.0-16.0) 10/12/16 04:40 BUN 50 mg/dL (7-25) H 10/12/16 04:40 Creatinine 0.7 mg/dL (0.6-1.2) 10/12/16 04:40 Est GFR ( Amer) > 60.0 ml/min (>90) 10/12/16 04:40 Est GFR (Non-Af Amer) > 60.0 ml/min 10/12/16 04:40 BUN/Creatinine Ratio 71.4 10/12/16 04:40 Glucose 210 mg/dL (70-105) H 10/12/16 04:40 POC Glucose 275 MG/DL (70 - 105) H 10/12/16 12:04 Hemoglobin A1c % 6.5 % (4.0-6.0) H 09/21/16 09:13 Whole Bld Lactic Acid 0.96 mmol/L (0.60-2.00) 09/21/16 22:05 Calcium 9.9 mg/dL (8.6-10.3) 10/12/16 04:40 Magnesium 2.0 mg/dL (1.9-2.7) 10/07/16 04:40 Total Bilirubin 0.4 mg/dL (0.3-1.0) 10/10/16 11:30 Direct Bilirubin 0.07 mg/dL (0.0-0.2) 09/27/16 04:56 AST 17 U/L (13-39) 10/10/16 11:30 ALT 15 U/L (7-52) 10/10/16 11:30 Alkaline Phosphatase 161 U/L (34-104) H 10/10/16 11:30 Ammonia 52 umol/L (16-53) 10/03/16 04:45 Troponin I 0.79 ng/mL (0.01-0.05) H* D 09/21/16 22:05 B-Natriuretic Peptide 64.0 pg/mL (5.0-100.0) 10/03/16 04:45 Total Protein 6.9 gm/dL (6.0-8.3) 10/10/16 11:30 Albumin 2.8 gm/dL (3.7-5.3) L 10/10/16 11:30 Globulin 4.1 gm/dL 10/10/16 11:30 Albumin/Globulin Ratio 0.7 (1.0-1.8) L 10/10/16 11:30 Urine Source CATH 10/01/16 09:30 Urine Color YELLOW 10/01/16 09:30 Urine Clarity SL. CLOUDY (CLEAR) 10/01/16 09:30 Urine pH 7.5 10/01/16 09:30 Ur Specific [place] 1.020 (1.005-1.030) 10/01/16 09:30 Urine Protein 100 mg/dL (NEGATIVE) H 10/01/16 09:30 Urine Glucose (UA) NEGATIVE mg/dL (NEGATIVE) 10/01/16 09:30 Urine Ketones NEGATIVE mg/dL (NEGATIVE) 10/01/16 09:30 Urine Blood SMALL (NEGATIVE) H 10/01/16 09:30 Urine Nitrate NEGATIVE (NEGATIVE) 10/01/16 09:30 Urine Bilirubin NEGATIVE (NEGATIVE) 10/01/16 09:30 Urine Urobilinogen 0.2 E.U./dL (0.2 - 1.0) 10/01/16 09:30 Ur Leukocyte Esterase SMALL (NEGATIVE) H 10/01/16 09:30 Urine RBC 5-10 /hpf (0-5) H 10/01/16 09:30 Urine WBC 25-50 /hpf (0-5) H 10/01/16 09:30 Ur Epithelial Cells OCCASIONAL /lpf (FEW) 10/01/16 09:30 Urine Bacteria FEW /hpf (NONE SEEN) 10/01/16 09:30 Amikacin Peak 32.3 ug/mL (20.0-30.0) H 10/07/16 09:40 Amikacin Trough 3.3 ug/mL (1.0-8.0) 10/08/16 09:39 Vancomycin Trough 20.4 ug/mL (10-20) H 09/23/16 16:20 Digoxin 2.3 ng/ml (0.8-2.0) H 09/29/16 07:55 Blood Type O POSITIVE 10/06/16 09:45 Antibody Screen NEGATIVE 10/06/16 09:45 Crossmatch See Detail 10/06/16 09:45 - Physical Exam Vitals and I&O: Vital Signs Temp 97.8 F 10/12/16 12:00 Pulse 109 10/12/16 15:05 Resp 21 10/12/16 15:05 BP 132/69 10/12/16 15:00 Pulse Ox 98 10/12/16 15:05 Intake & Output 10/11/16 10/12/16 10/12/16 17:59 06:59 18:59 Intake Total Output Total Balance Intake: Intake, IV Amount Amikacin 300 mg In Dextrose 5% 100 ml @ 200 mls/hr IV Q24H [facility] Rx#: [id number] Fluconazole 200mg/100mL 200 mg In 100 ml @ 100 mls/hr IV Q24HR [facility] Rx#: [id number] Sodium Chloride 0.9% 500 ml @ 10 mls/hr IV .Q24H [facility] Rx#:[id number] Tube Feeding Other Output: Urine Other: # Bowel Movements Active Medications: Current Medications Acetaminophen (Tylenol 650mg/20.3ml Suspension) 650 mg GT Q4H PRN PRN Reason: MILD PAIN AND FEVER >101 Stop: 11/20/16 12:41 Last Admin: 10/11/16 20:43 Dose: 650 mg Acetylcysteine (Mucomyst 20%) 3 ml HHN Q4HR [facility] Stop: 11/24/16 15:59 Last Admin: 10/12/16 14:44 Dose: 3 ml Albuterol Sulfate (Albuterol 2.5mg/3ml Neb Ud) 2.5 mg HHN Q4HRT [facility] Stop: 11/25/16 10:59 Last Admin: 10/12/16 14:44 Dose: 2.5 mg Ascorbic Acid (Vitamin C) 500 mg GT DAILY [facility] Stop: 11/21/16 08:59 Last Admin: 10/12/16 09:02 Dose: 500 mg Atorvastatin Calcium (Lipitor) 40 mg PO HS [facility] Stop: 12/07/16 20:59 Last Admin: 10/11/16 20:43 Dose: 40 mg Dextrose (D50w) 50 ml IVP PRN PRN PRN Reason: blood sugar < 60 Stop: 11/25/16 21:35 Last Admin: 09/27/16 21:49 Dose: 50 ml Diltiazem HCl (Cardizem) 20 mg IVP Q4H PRN PRN Reason: HR Greater than 130 per min Stop: 11/20/16 12:45 Last Admin: 09/28/16 08:05 Dose: 20 mg Folic Acid (Folate) 1 mg GT DAILY [facility] Stop: 11/21/16 08:59 Last Admin: 10/12/16 09:02 Dose: 1 mg Guaifenesin (Robitussin) 200 mg GT Q4HR PRN PRN Reason: Cough or Congestion Stop: 11/20/16 12:41 Last Admin: 10/07/16 12:59 Dose: 200 mg Hydromorphone HCl (Dilaudid) 0.5 mg IVP Q4HR PRN PRN Reason: Pain (Moderate) Stop: 12/11/16 13:58 Norepinephrine Bitartrate 4 mg (/ Dextrose) 254 mls @ 38.1 mls/hr IV TITR PRN; Protocol; 10 MCG/MIN PRN Reason: BP MAINTENANCE (PER PROTOCOL) Stop: 11/20/16 23:39 Last Admin: 09/28/16 12:18 Dose: 4 mcg/min, 15.24 mls/hr Fluconazole (Diflucan) 200 mg in 100 mls @ 100 mls/hr IV Q24HR [facility] Stop: 12/04/16 13:59 Last Infusion: 10/11/16 15:25 Dose: Infused Amikacin Sulfate 300 mg/ (Dextrose) 101.2 mls @ 200 mls/hr IV Q24H [facility] Stop: 12/08/16 15:59 Last Admin: 10/12/16 15:40 Dose: 100 mls/hr Sodium Chloride (Nacl 0.9%) 500 mls @ 10 mls/hr IV .Q24H [facility] Stop: 12/09/16 16:29 Last Admin: 10/11/16 18:59 Dose: 10 mls/hr Insulin Aspart (Novolog) 0 units SUBQ Q6HR [facility] PRN Reason: Protocol Stop: 12/09/16 17:59 Last Admin: 10/12/16 12:32 Dose: 4 units Insulin Human NPH (Novolin N) 30 units SUBQ BIDAC [facility] PRN Reason: Protocol Stop: 12/07/16 16:29 Last Admin: 10/12/16 06:31 Dose: 30 units Ipratropium [place] (Atrovent Neb 0.5mg/2.5ml) 0.5 mg HHN Q4HRT [facility] Stop: 11/25/16 10:59 Last Admin: 10/12/16 14:44 Dose: 0.5 mg Lactobacillus Rhamnosus (Culturelle) 1 each PO DAILY [facility] Stop: 11/24/16 08:59 Last Admin: 10/12/16 09:02 Dose: 1 each Lactulose (Cephulac) 20 gm GT DAILY [facility] Stop: 11/27/16 08:59 Last Admin: 10/12/16 09:01 Dose: 20 gm Loperamide HCl (Imodium) 2 mg GT Q4H PRN PRN Reason: DIARRHEA Stop: 11/20/16 15:12 Magnesium Hydroxide (Milk Of Magnesia) 30 ml GT DAILY PRN PRN Reason: Constipation Stop: 11/20/16 12:41 Metoclopramide HCl (Reglan) 5 mg IVP TID [facility] Stop: 11/29/16 13:59 Last Admin: 10/12/16 14:30 Dose: 5 mg Miscellaneous (Probiotic Screen) 1 ea PRN PRN PRN Reason: PROTOCOL Stop: 11/24/16 08:48 Miscellaneous (Clinical Monitoring) [facility] PRN PRN PRN Reason: XARELTO Stop: 11/28/16 11:19 Nystatin (Nystop) 100,000 units TP BID [facility] Stop: 11/21/16 08:59 Last Admin: 10/12/16 09:02 Dose: 100,000 units Ondansetron HCl (Zofran) 4 mg IV Q8H PRN PRN Reason: Nausea / Vomiting Stop: 11/20/16 12:45 Rivaroxaban (Xarelto) 10 mg GT DAILY [facility] Stop: 11/21/16 10:59 Last Admin: 10/12/16 09:02 Dose: 10 mg Vitamin A (Vitamin A & D) 5 gm TP DAILY [facility] Stop: 11/21/16 14:59 Last Admin: 10/12/16 09:04 Dose: 5 gm Zinc Sulfate (Zinc Sulfate) 220 mg GT DAILY [facility] Stop: 11/21/16 08:59 Last Admin: 10/12/16 09:02 Dose: 220 mg General: weak HEENT: NC/AT Neck: Supple Lungs: ronchi Cardiovascular: RRR, Normal S1, Normal S2, without murmur Abdomen: soft non-tender, non-distended Extremities: clear - Procedures Procedures: Procedures Procedure Code Date BLOOD TRANSFUSION SERVICE 11613 03/06/16 BYPASS DESCENDING COLON TO CUTANEOUS, OPEN APPROACH [id number] 09/21/16 CHANGE GASTROSTOMY TUBE 72896 06/09/14 COLOSTOMY 05694 09/21/16 AGNIESZKA BONE 20 SQ CM/< 37788 01/28/15 DIAGNOSTIC COLONOSCOPY 18568 03/06/16 EGD BIOPSY SINGLE/MULTIPLE 45105 03/06/16 EXCISION OF DUODENUM, ENDO, DIAGN [id number] 03/06/16 EXCISION OF SACRUM, OPEN APPROACH [id number] 09/21/16 EXCISION OF STOMACH, ENDO, DIAGN [id number] 03/06/16 IMMOBILIZ/WOUND ATTN NEC 93.59 01/28/15 INSERT INDWELLING CATH 57.94 10/18/05 INSERT TEMP BLADDER CATH 27437 10/18/05 INSPECTION OF LOWER INTESTINAL TRACT, ENDO [id number] 03/06/16 INSPECTION OF UPPER INTESTINAL TRACT, ENDO [id number] 10/27/15 LOC EXC BONE LESION NEC 77.69 01/28/15 PACKED CELL TRANSFUSION 99.04 10/20/14 REMOVAL OF PRESSURE SORE 47739 09/21/16 REPLACE GASTROSTOMY TUBE 97.02 06/09/14 RESPIRATORY VENTILATION, LESS THAN 24 CONSECUTIVE HOURS [id number] 09/21/16 TRANSFUSE NONAUT RED BLOOD CELLS IN PERIPH VEIN, PERC 27266X4 06/16/16 VENT MGMT INPAT INIT DAY 36043 09/21/16 Internal Medicine Assmt/Plan - Assessment Assessment: sepsis shock pmn acute on crf anemia leukocytosis hypoglycemia mr cp elevated ammonia ESBL URINE MRSA NARES - Plan Plan: gi consult monitor for any respiratory distress f/u labs in am ivabx bronchodilators wound care Nutritional Asmnt/Malnutr-PDOC - Dietary Evaluation Malnutrition Findings (Please click <Entered> for more info): Nutritional Asmnt/Malnutrition Start: 09/22/16 12: 31 Text: Status: Complete Freq: Document 09/22/16 12:32 GSUN (Rec: 09/22/16 13:00 GSUN [email or web address]) Nutritional Asmnt/Malnutrition Patient General Information Nutritional Screening High Risk Screening Diagnosis Per ER: sepsis, UTI, HTN, possible PNA, elevated troponin Pertinent Medical Hx/Surgical Hx Per ER: HTN, DM, dyslipidemia, anemia, 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 RD consult for decubitus ulcer and trigger for BG >180. Discussed with RN regarding tube feeding regimens when tube feeding resumed. Unable to obtain new weight due to bedscale not properly calibrated. Current Diet Order/ Nutrition Support NPO Pertinent Medications Vitamin C, lipitor, D5, folate , novolog, novolin, cephulac, MOM, zofran, vancomycin, vitamin A and D, zinc sulfate Pertinent Labs 09/21: BUN 112H, creatinine 1. 6H, glucose 263H, A1c 6.5H, troponin 1.96H 09/22: Potassium 2.8L, BUN 74H (improving), creatinine 1.1 ( improved), glucose 278H POC glucose 58-303H Nutritional Hx/Data Height 4 ft 9 in Height (Calculated Centimeters) 144.8 Current Weight (lbs) 97 lb Weight (Calculated Kilograms) 44.0 Weight (Calculated Grams) 17674.5 Weight Status Approriate GI Symptoms Food Allergies No Cultural/Ethnic/M[employer]onism Belief Unknown. Usual diet at home [place]: glucerna 1.2 at 60ml/hr x 20hrs with 200ml flush Q4hrs Skin Integrity/Comment: second vp hr assessment: ulceration sacrum, right tow, right foot, left foot Estimated Nutritional Goals BEE in Kcals: Using Current wt Calories/Kcals/Kg 30-35kcal/kg Kcals Calculated 1320-1544kcal Protein: Using Current wt Protein g/k.5-1.7g/kg Protein Calculated 66-75g Fluid: ml 1320-1544ml (1ml/kcal) Nutritional Problem 2. Problem Problem Altered nutrition related laboratory values related to Etiology DM aeb Signs/Symptoms: episodes of hypoglycemia and hyperglycemia, 58L and 303H 1. Problem Problem Increased protein and kcal needs related to Etiology hypermetabolic state aeb Signs/Symptoms: sepsis, possible PNA, mulitple ulcerations Intervention/Recommendation Comments 1. Recommend Diabetisource 50ml/hr x 24hrs, providing 1440kcal and 72g protein, for glycemic control and to better meet nutritional needs. 2. Recommend 1 packet Arginaid BID via g-tube for multiple ulcerations wound healing. 3. If episodes of hypoglycemia persists, consider without carbohydrate restriction with Fibersource HN at 50ml/hrs x 24hrs. Expected Outcomes/Goals Expected Outcomes/Goals 1. Pt to meet 100% of estimated nutritional needs on tube feeding + Arginaid with tolerance. Physician Parameters for PEM Serum Albumin (g/dl) 3.5 - 5.0 (Normal)
[2016-10-12] MEDS: Sodium Chloride 0.9% 500 ML IV SCH (17:21)
[2016-10-13] MEDS: INSULIN ASPART, RECOMBINANT 100 UNITS/ML SUBQ SCH ×4 (00:25→17:15)
[2016-10-13] MEDS: Dextrose 50% 50 mL Abboject IVP PRN (00:33)
[2016-10-13] MEDS: Albuterol Nebulizer 2.5mg/3mL HHN SCH ×6 (03:14→23:34)
[2016-10-13] MEDS: Ipratropium Neb 0.5 mg/2.5 mL UD HHN SCH ×6 (03:14→23:34)
[2016-10-13 04:57] LABS: % BASOPHILS 0.5 % (0.0-2.0); % EOSINOPHILS 6.2 % (0.0-5.0); % LYMPHOCYTES 20.6 % (20.0-50.0); % MONOCYTES 8.6 % (2.0-10.0); % NEUTROPHILS 64.1 % (40.0-80.0); HEMATOCRIT 31.3 % (35.0-45.0); HEMOGLOBIN 10.5 gm/dL (11.7-15.5); MEAN CELL VOLUME 88.2 fl (81-100); MEAN CORPUSCULAR HEMOGLOBIN 29.6 pg (27.0-31.0); MEAN CORPUSCULAR HGB CONC 33.5 pg (28.0-36.0); MEAN PLATELET VOLUME 8.7 fl; NEUTROPHILE ABSOLUTE 4.4 Th/cmm (1.8-8.0); RED BLOOD COUNT 3.55 Mil/cmm (3.80-5.10); RED CELL DISTRIBUTION WIDTH 14.3 % (11.5-20.0); WHITE BLOOD COUNT 6.8 Th/cmm (4.8-10.8)
[2016-10-13 05:09] LABS: PLATELET COUNT 184 Th/cmm (150-400)
[2016-10-13 05:14] LABS: ALB/GLOB RATIO 0.7 (1.0-1.8); ALKALINE PHOSPHATASE 115 U/L (34-104); ANION GAP 8.4 (7.0-16.0); BILIRUBIN,TOTAL 0.3 mg/dL (0.3-1.0); BUN - UREA NITROGEN 40 mg/dL (7-25); BUN/CREATININE RATIO 57.1; CALCIUM SERUM 10.4 mg/dL (8.6-10.3); CARBON DIOXIDE 32.4 mEq/L (21.0-31.0); CHLORIDE 110 mEq/L (98-107); CREATININE - SERUM 0.7 mg/dL (0.6-1.2); GLUCOSE 120 mg/dL (70-105); POTASSIUM SERUM 3.8 mEq/L (3.5-5.1); SGOT 20 U/L (13-39); SGPT/ALT 17 U/L (7-52); SODIUM SERUM 147 mEq/L (136-145)
[2016-10-13] MEDS: INSULIN HUMAN ISOPHANE (NPH) 100 UNITS/ML SUBQ SCH ×2 (06:45→17:13)
[2016-10-13] MEDS: NYSTATIN 100000 UNITS/GM POWD TP SCH ×2 (09:23→17:10)
[2016-10-13] MEDS: Metoclopramide 5 mg/mL 2mL Vial IVP SCH ×3 (09:24→20:41)
[2016-10-13] MEDS: Lactulose 10 Gm/15 mL 30mL UDC GT SCH (09:25)
[2016-10-13] MEDS: Multivitamin w/ Minerals Tab GT SCH (09:25)
[2016-10-13] MEDS: Lactobacillus Rhamnosus 10 Billion CFU Capsule PO SCH (09:25)
[2016-10-13] MEDS: Vitamin A/Vitamin D 5 gm Packet TP SCH (09:25)
--- NOTE | 2016-10-13 12:23 | Internal Medicine Prog Note ---
Internal Medicine Subjective - Subjective Service Date: 10/13/16 Patient seen and examined:: with staff Patient is:: awake Per staff patient is:: no adverse event Internal Medicine Objective - Results Result Diagrams: 10/13/16 04:35 10/13/16 04:35 Recent Labs: Laboratory Last Values WBC 6.8 Th/cmm (4.8-10.8) 10/13/16 04:35 RBC 3.55 Mil/cmm (3.80-5.10) L 10/13/16 04:35 Hgb 10.5 gm/dL (11.7-15.5) L 10/13/16 04:35 Hct 31.3 % (35.0-45.0) L 10/13/16 04:35 MCV 88.2 fl (81-100) 10/13/16 04:35 MCH 29.6 pg (27.0-31.0) 10/13/16 04:35 MCHC Differential 33.5 pg (28.0-36.0) 10/13/16 04:35 RDW 14.3 % (11.5-20.0) 10/13/16 04:35 Plt Count 184 Th/cmm (150-400) D 10/13/16 04:35 MPV 8.7 fl 10/13/16 04:35 Neutrophils % 64.1 % (40.0-80.0) 10/13/16 04:35 Band Neutrophils % 6 % (0-10) 10/06/16 04:50 Lymphocytes % 20.6 % (20.0-50.0) 10/13/16 04:35 Monocytes % 8.6 % (2.0-10.0) 10/13/16 04:35 Eosinophils % 6.2 % (0.0-5.0) H 10/13/16 04:35 Basophils % 0.5 % (0.0-2.0) 10/13/16 04:35 Neutrophils (Manual) 63 % (40-80) 10/06/16 04:50 Lymphocytes 15 % (20-50) L 10/06/16 04:50 Monocytes 9 % (2-10) 10/06/16 04:50 Eosinophils 6 % (0-5) H 10/06/16 04:50 Basophils 1 % (0-3) 10/06/16 04:50 Platelet Estimate DECREASED PLATELETS (NORMAL) 10/06/16 04:50 Platelet Morphology NORMAL (NORMAL) 10/06/16 04:50 Polychromasia 1+ 09/22/16 04:49 Anisocytosis 1+ 10/06/16 04:50 RBC Morph Micro Appear ABNORMAL (NORMAL) 10/06/16 04:50 PT 10.3 SECONDS (9.5-11.5) 10/03/16 04:45 INR 0.99 (0.5-1.4) 10/03/16 04:45 PTT (Actin FS) 26.3 SECONDS (26.0-38.0) 10/03/16 04:45 Specimen Source Arterial 10/08/16 13:40 Sample Site Left Radial 10/08/16 13:40 pH 7.43 (7.35-7.45) 10/08/16 13:40 pCO2 49.0 mmHg (35.0-45.0) H 10/08/16 13:40 pO2 154.0 mmHg (80.0-100.0) H 10/08/16 13:40 HCO3 32.5 mEq/L (20.0-26.0) H 10/08/16 13:40 Base Excess 7.0 mEq/L (-3.0-3.0) H 10/08/16 13:40 O2 Saturation 99.0 % (92.0-100.0) 10/08/16 13:40 Emmanuel Test YES 10/08/16 13:40 Vent Rate 12 10/08/16 13:40 Inspired O2 60 10/08/16 13:40 Tidal Volume NA 10/08/16 13:40 PEEP NA 10/08/16 13:40 Pressure (ins/psv/peep) NA 10/08/16 13:40 Critical Value E.MCARTHUR 10/08/16 13:40 Sodium 147 mEq/L (136-145) H 10/13/16 04:35 Potassium 3.8 mEq/L (3.5-5.1) 10/13/16 04:35 Chloride 110 mEq/L (98-107) H 10/13/16 04:35 Carbon Dioxide 32.4 mEq/L (21.0-31.0) H 10/13/16 04:35 Anion Gap 8.4 (7.0-16.0) 10/13/16 04:35 BUN 40 mg/dL (7-25) H 10/13/16 04:35 Creatinine 0.7 mg/dL (0.6-1.2) 10/13/16 04:35 Est GFR ( Amer) > 60.0 ml/min (>90) 10/13/16 04:35 Est GFR (Non-Af Amer) > 60.0 ml/min 10/13/16 04:35 BUN/Creatinine Ratio 57.1 10/13/16 04:35 Glucose 120 mg/dL (70-105) H 10/13/16 04:35 POC Glucose 246 MG/DL (70 - 105) H 10/13/16 11:50 Hemoglobin A1c % 6.5 % (4.0-6.0) H 09/21/16 09:13 Whole Bld Lactic Acid 0.96 mmol/L (0.60-2.00) 09/21/16 22:05 Calcium 10.4 mg/dL (8.6-10.3) H 10/13/16 04:35 Magnesium 2.0 mg/dL (1.9-2.7) 10/07/16 04:40 Total Bilirubin 0.3 mg/dL (0.3-1.0) 10/13/16 04:35 Direct Bilirubin 0.07 mg/dL (0.0-0.2) 09/27/16 04:56 AST 20 U/L (13-39) 10/13/16 04:35 ALT 17 U/L (7-52) 10/13/16 04:35 Alkaline Phosphatase 115 U/L (34-104) H 10/13/16 04:35 Ammonia 52 umol/L (16-53) 10/03/16 04:45 Troponin I 0.79 ng/mL (0.01-0.05) H* D 09/21/16 22:05 B-Natriuretic Peptide 64.0 pg/mL (5.0-100.0) 10/03/16 04:45 Total Protein 7.2 gm/dL (6.0-8.3) 10/13/16 04:35 Albumin 2.9 gm/dL (3.7-5.3) L 10/13/16 04:35 Globulin 4.3 gm/dL 10/13/16 04:35 Albumin/Globulin Ratio 0.7 (1.0-1.8) L 10/13/16 04:35 Urine Source CATH 10/01/16 09:30 Urine Color YELLOW 10/01/16 09:30 Urine Clarity SL. CLOUDY (CLEAR) 10/01/16 09:30 Urine pH 7.5 10/01/16 09:30 Ur Specific Topmost 1.020 (1.005-1.030) 10/01/16 09:30 Urine Protein 100 mg/dL (NEGATIVE) H 10/01/16 09:30 Urine Glucose (UA) NEGATIVE mg/dL (NEGATIVE) 10/01/16 09:30 Urine Ketones NEGATIVE mg/dL (NEGATIVE) 10/01/16 09:30 Urine Blood SMALL (NEGATIVE) H 10/01/16 09:30 Urine Nitrate NEGATIVE (NEGATIVE) 10/01/16 09:30 Urine Bilirubin NEGATIVE (NEGATIVE) 10/01/16 09:30 Urine Urobilinogen 0.2 E.U./dL (0.2 - 1.0) 10/01/16 09:30 Ur Leukocyte Esterase SMALL (NEGATIVE) H 10/01/16 09:30 Urine RBC 5-10 /hpf (0-5) H 10/01/16 09:30 Urine WBC 25-50 /hpf (0-5) H 10/01/16 09:30 Ur Epithelial Cells OCCASIONAL /lpf (FEW) 10/01/16 09:30 Urine Bacteria FEW /hpf (NONE SEEN) 10/01/16 09:30 Amikacin Peak 32.3 ug/mL (20.0-30.0) H 10/07/16 09:40 Amikacin Trough 3.3 ug/mL (1.0-8.0) 10/08/16 09:39 Vancomycin Trough 20.4 ug/mL (10-20) H 09/23/16 16:20 Digoxin 2.3 ng/ml (0.8-2.0) H 09/29/16 07:55 Blood Type O POSITIVE 10/06/16 09:45 Antibody Screen NEGATIVE 10/06/16 09:45 Crossmatch See Detail 10/06/16 09:45 - Physical Exam Vitals and I&O: Vital Signs Temp 98.1 F 10/13/16 08:00 Pulse 104 10/13/16 11:10 Resp 18 10/13/16 11:10 BP 138/67 10/13/16 10:00 Pulse Ox 100 10/13/16 11:10 Intake & Output 10/12/16 10/13/16 10/13/16 18:59 06:59 18:59 Intake Total 1133.667 720 120 Output Total 850 1300 100 Balance 283.667 -580 20 Intake: Intake, IV Amount 413.667 Amikacin 300 mg In 100 Dextrose 5% 100 ml @ 200 mls/hr IV Q24H [facility] Rx#: [id number] Fluconazole 200mg/100mL 100 200 mg In 100 ml @ 100 mls/hr IV Q24HR [facility] Rx#: [id number] Sodium Chloride 0.9% 500 213.667 ml @ 10 mls/hr IV .Q24H [facility] Rx#:[id number] Tube Feeding 720 720 120 Output: Urine 850 850 100 Stool 450 Other: # Bowel Movements 1 Stool Characteristics Soft Soft Brown Brown Active Medications: Current Medications Acetaminophen (Tylenol 650mg/20.3ml Suspension) 650 mg GT Q4H PRN PRN Reason: MILD PAIN AND FEVER >101 Stop: 11/20/16 12:41 Last Admin: 10/11/16 20:43 Dose: 650 mg Acetylcysteine (Mucomyst 20%) 3 ml HHN Q4HR [facility] Stop: 11/24/16 15:59 Last Admin: 10/13/16 11:10 Dose: 3 ml Albuterol Sulfate (Albuterol 2.5mg/3ml Neb Ud) 2.5 mg HHN Q4HRT [facility] Stop: 11/25/16 10:59 Last Admin: 10/13/16 11:10 Dose: 2.5 mg Ascorbic Acid (Vitamin C) 500 mg GT DAILY [facility] Stop: 11/21/16 08:59 Last Admin: 10/13/16 09:25 Dose: 500 mg Atorvastatin Calcium (Lipitor) 40 mg PO HS [facility] Stop: 12/07/16 20:59 Last Admin: 10/12/16 21:41 Dose: 40 mg Dextrose (D50w) 50 ml IVP PRN PRN PRN Reason: blood sugar < 60 Stop: 11/25/16 21:35 Last Admin: 10/13/16 00:33 Dose: 50 ml Diltiazem HCl (Cardizem) 20 mg IVP Q4H PRN PRN Reason: HR Greater than 130 per min Stop: 11/20/16 12:45 Last Admin: 09/28/16 08:05 Dose: 20 mg Folic Acid (Folate) 1 mg GT DAILY [facility] Stop: 11/21/16 08:59 Last Admin: 10/13/16 09:24 Dose: 1 mg Guaifenesin (Robitussin) 200 mg GT Q4HR PRN PRN Reason: Cough or Congestion Stop: 11/20/16 12:41 Last Admin: 10/07/16 12:59 Dose: 200 mg Hydromorphone HCl (Dilaudid) 0.5 mg IVP Q4HR PRN PRN Reason: Pain (Moderate) Stop: 12/11/16 13:58 Norepinephrine Bitartrate 4 mg (/ Dextrose) 254 mls @ 38.1 mls/hr IV TITR PRN; Protocol; 10 MCG/MIN PRN Reason: BP MAINTENANCE (PER PROTOCOL) Stop: 11/20/16 23:39 Last Admin: 09/28/16 12:18 Dose: 4 mcg/min, 15.24 mls/hr Fluconazole (Diflucan) 200 mg in 100 mls @ 100 mls/hr IV Q24HR [facility] Stop: 12/04/16 13:59 Last Infusion: 10/12/16 15:30 Dose: Infused Amikacin Sulfate 300 mg/ (Dextrose) 101.2 mls @ 200 mls/hr IV Q24H [facility] Stop: 12/08/16 15:59 Last Infusion: 10/12/16 16:40 Dose: 100 mls/hr Sodium Chloride (Nacl 0.9%) 500 mls @ 10 mls/hr IV .Q24H [facility] Stop: 12/09/16 16:29 Last Admin: 10/12/16 17:21 Dose: 10 mls/hr Insulin Aspart (Novolog) 0 units SUBQ Q6HR [facility] PRN Reason: Protocol Stop: 12/09/16 17:59 Last Admin: 10/13/16 12:11 Dose: 2 units Insulin Human NPH (Novolin N) 30 units SUBQ BIDAC [facility] PRN Reason: Protocol Stop: 12/07/16 16:29 Last Admin: 10/13/16 06:45 Dose: Not Given Ipratropium [place] (Atrovent Neb 0.5mg/2.5ml) 0.5 mg HHN Q4HRT [facility] Stop: 11/25/16 10:59 Last Admin: 10/13/16 11:10 Dose: 0.5 mg Lactobacillus Rhamnosus (Culturelle) 1 each PO DAILY [facility] Stop: 11/24/16 08:59 Last Admin: 10/13/16 09:25 Dose: 1 each Lactulose (Cephulac) 20 gm GT DAILY [facility] Stop: 11/27/16 08:59 Last Admin: 10/13/16 09:25 Dose: 20 gm Loperamide HCl (Imodium) 2 mg GT Q4H PRN PRN Reason: DIARRHEA Stop: 11/20/16 15:12 Magnesium Hydroxide (Milk Of Magnesia) 30 ml GT DAILY PRN PRN Reason: Constipation Stop: 11/20/16 12:41 Metoclopramide HCl (Reglan) 5 mg IVP TID [facility] Stop: 11/29/16 13:59 Last Admin: 10/13/16 09:24 Dose: 5 mg Miscellaneous (Probiotic Screen) 1 [facility] PRN PRN PRN Reason: PROTOCOL Stop: 11/24/16 08:48 Miscellaneous (Clinical Monitoring) 1 [facility] PRN PRN PRN Reason: XARELTO Stop: 11/28/16 11:19 Nystatin (Nystop) 100,000 units TP BID [facility] Stop: 11/21/16 08:59 Last Admin: 10/13/16 09:23 Dose: 100,000 units Ondansetron HCl (Zofran) 4 mg IV Q8H PRN PRN Reason: Nausea / Vomiting Stop: 11/20/16 12:45 Rivaroxaban (Xarelto) 10 mg GT DAILY [facility] Stop: 11/21/16 10:59 Last Admin: 10/13/16 09:24 Dose: 10 mg Vitamin A (Vitamin A & D) 5 gm TP DAILY [facility] Stop: 11/21/16 14:59 Last Admin: 10/13/16 09:25 Dose: 5 gm Zinc Sulfate (Zinc Sulfate) 220 mg GT DAILY [facility] Stop: 11/21/16 08:59 Last Admin: 10/13/16 09:24 Dose: 220 mg General: alert HEENT: NC/AT, PERRLA Neck: Supple Lungs: CTAB Cardiovascular: RRR, Normal S1, Normal S2, without murmur Abdomen: soft non-tender, non-distended Extremities: clear - Procedures Procedures: Procedures Procedure Code Date BLOOD TRANSFUSION SERVICE 35147 03/06/16 BYPASS DESCENDING COLON TO CUTANEOUS, OPEN APPROACH [id number] 09/21/16 CHANGE GASTROSTOMY TUBE 08116 06/09/14 COLOSTOMY 37496 09/21/16 AGNIESZKA BONE 20 SQ CM/< 90627 01/28/15 DIAGNOSTIC COLONOSCOPY 95777 03/06/16 EGD BIOPSY SINGLE/MULTIPLE 13073 03/06/16 EXCISION OF DUODENUM, ENDO, DIAGN [id number] 03/06/16 EXCISION OF SACRUM, OPEN APPROACH [id number] 09/21/16 EXCISION OF STOMACH, ENDO, DIAGN [id number] 03/06/16 IMMOBILIZ/WOUND ATTN NEC 93.59 01/28/15 INSERT INDWELLING CATH 57.94 10/18/05 INSERT TEMP BLADDER CATH 61940 10/18/05 INSPECTION OF LOWER INTESTINAL TRACT, ENDO [id number] 03/06/16 INSPECTION OF UPPER INTESTINAL TRACT, ENDO [id number] 10/27/15 LOC EXC BONE LESION NEC 77.69 01/28/15 PACKED CELL TRANSFUSION 99.04 10/20/14 REMOVAL OF PRESSURE SORE 52780 09/21/16 REPLACE GASTROSTOMY TUBE 97.02 06/09/14 RESPIRATORY VENTILATION, LESS THAN 24 CONSECUTIVE HOURS [id number] 09/21/16 TRANSFUSE NONAUT RED BLOOD CELLS IN PERIPH VEIN, PERC 39559U5 06/16/16 VENT MGMT INPAT INIT DAY 28580 09/21/16 Internal Medicine Assmt/Plan - Assessment Assessment: sepsis shock pmn acute on crf anemia leukocytosis hypoglycemia mr cp elevated ammonia ESBL URINE MRSA NARES - Plan Plan: peg placement tomorrow CT abd/pelvis today monitor for any respiratory distress f/u labs in am ivabx bronchodilators wound care Nutritional Asmnt/Malnutr-PDOC - Dietary Evaluation Malnutrition Findings (Please click <Entered> for more info): Nutritional Asmnt/Malnutrition Start: 09/22/16 12: 31 Text: Status: Complete Freq: Document 09/22/16 12:32 GSUN (Rec: 09/22/16 13:00 GSUN MARION-FN) Nutritional Asmnt/Malnutrition Patient General Information Nutritional Screening High Risk Screening Diagnosis Per ER: sepsis, UTI, HTN, possible PNA, elevated troponin Pertinent Medical Hx/Surgical Hx Per ER: HTN, DM, dyslipidemia, anemia, 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 RD consult for decubitus ulcer and trigger for BG >180. Discussed with RN regarding tube feeding regimens when tube feeding resumed. Unable to obtain new weight due to bedscale not properly calibrated. Current Diet Order/ Nutrition Support NPO Pertinent Medications Vitamin C, lipitor, D5, folate , novolog, novolin, cephulac, MOM, zofran, vancomycin, vitamin A and D, zinc sulfate Pertinent Labs 09/21: BUN 112H, creatinine 1. 6H, glucose 263H, A1c 6.5H, troponin 1.96H 09/22: Potassium 2.8L, BUN 74H (improving), creatinine 1.1 ( improved), glucose 278H POC glucose 58-303H Nutritional Hx/Data Height 4 ft 9 in Height (Calculated Centimeters) 144.8 Current Weight (lbs) 97 lb Weight (Calculated Kilograms) 44.0 Weight (Calculated Grams) 30628.5 Weight Status Approriate GI Symptoms Food Allergies No Cultural/Ethnic/Zoroastrianism Belief Unknown. 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 Problem Problem Altered nutrition related laboratory values related to Etiology DM aeb Signs/Symptoms: episodes of hypoglycemia and hyperglycemia, 58L and 303H 1. Problem Problem Increased protein and kcal needs related to Etiology hypermetabolic state aeb Signs/Symptoms: sepsis, possible PNA, mulitple ulcerations Intervention/Recommendation Comments 1. Recommend Diabetisource 50ml/hr x 24hrs, providing 1440kcal and 72g protein, for glycemic control and to better meet nutritional needs. 2. Recommend 1 packet Arginaid BID via g-tube for multiple ulcerations wound healing. 3. If episodes of hypoglycemia persists, consider without carbohydrate restriction with Fibersource HN at 50ml/hrs x 24hrs. Expected Outcomes/Goals Expected Outcomes/Goals 1. Pt to meet 100% of estimated nutritional needs on tube feeding + Arginaid with tolerance. Physician Parameters for PEM Serum Albumin (g/dl) 3.5 - 5.0 (Normal)
[2016-10-13] MEDS: Fluconazole 200mg/100mL 200 MG/100 ML BAG IV SCH (13:19)
--- NOTE | 2016-10-13 13:28 | General Progress Note ---
Subjective - Review of Systems Service Date: 10/13/16 Events since last encounter: colostomy output good for PEG placement Subjective: VS stable urine output adequate extubated, on air O2 sat ok Hb 7.8 gm, might need PRBC dressings dry Objective - Results Result Diagrams: 10/13/16 04:35 10/13/16 04:35 Recent Labs: Laboratory Last Values WBC 6.8 Th/cmm (4.8-10.8) 10/13/16 04:35 RBC 3.55 Mil/cmm (3.80-5.10) L 10/13/16 04:35 Hgb 10.5 gm/dL (11.7-15.5) L 10/13/16 04:35 Hct 31.3 % (35.0-45.0) L 10/13/16 04:35 MCV 88.2 fl (81-100) 10/13/16 04:35 MCH 29.6 pg (27.0-31.0) 10/13/16 04:35 MCHC Differential 33.5 pg (28.0-36.0) 10/13/16 04:35 RDW 14.3 % (11.5-20.0) 10/13/16 04:35 Plt Count 184 Th/cmm (150-400) D 10/13/16 04:35 MPV 8.7 fl 10/13/16 04:35 Neutrophils % 64.1 % (40.0-80.0) 10/13/16 04:35 Band Neutrophils % 6 % (0-10) 10/06/16 04:50 Lymphocytes % 20.6 % (20.0-50.0) 10/13/16 04:35 Monocytes % 8.6 % (2.0-10.0) 10/13/16 04:35 Eosinophils % 6.2 % (0.0-5.0) H 10/13/16 04:35 Basophils % 0.5 % (0.0-2.0) 10/13/16 04:35 Neutrophils (Manual) 63 % (40-80) 10/06/16 04:50 Lymphocytes 15 % (20-50) L 10/06/16 04:50 Monocytes 9 % (2-10) 10/06/16 04:50 Eosinophils 6 % (0-5) H 10/06/16 04:50 Basophils 1 % (0-3) 10/06/16 04:50 Platelet Estimate DECREASED PLATELETS (NORMAL) 10/06/16 04:50 Platelet Morphology NORMAL (NORMAL) 10/06/16 04:50 Polychromasia 1+ 09/22/16 04:49 Anisocytosis 1+ 10/06/16 04:50 RBC Morph Micro Appear ABNORMAL (NORMAL) 10/06/16 04:50 PT 10.3 SECONDS (9.5-11.5) 10/03/16 04:45 INR 0.99 (0.5-1.4) 10/03/16 04:45 PTT (Actin FS) 26.3 SECONDS (26.0-38.0) 10/03/16 04:45 Specimen Source Arterial 10/08/16 13:40 Sample Site Left Radial 10/08/16 13:40 pH 7.43 (7.35-7.45) 10/08/16 13:40 pCO2 49.0 mmHg (35.0-45.0) H 10/08/16 13:40 pO2 154.0 mmHg (80.0-100.0) H 10/08/16 13:40 HCO3 32.5 mEq/L (20.0-26.0) H 10/08/16 13:40 Base Excess 7.0 mEq/L (-3.0-3.0) H 10/08/16 13:40 O2 Saturation 99.0 % (92.0-100.0) 10/08/16 13:40 Emmanuel Test YES 10/08/16 13:40 Vent Rate 12 10/08/16 13:40 Inspired O2 60 10/08/16 13:40 Tidal Volume NA 10/08/16 13:40 PEEP NA 10/08/16 13:40 Pressure (ins/psv/peep) NA 10/08/16 13:40 Critical Value E.MCARTHUR 10/08/16 13:40 Sodium 147 mEq/L (136-145) H 10/13/16 04:35 Potassium 3.8 mEq/L (3.5-5.1) 10/13/16 04:35 Chloride 110 mEq/L (98-107) H 10/13/16 04:35 Carbon Dioxide 32.4 mEq/L (21.0-31.0) H 10/13/16 04:35 Anion Gap 8.4 (7.0-16.0) 10/13/16 04:35 BUN 40 mg/dL (7-25) H 10/13/16 04:35 Creatinine 0.7 mg/dL (0.6-1.2) 10/13/16 04:35 Est GFR ( Amer) > 60.0 ml/min (>90) 10/13/16 04:35 Est GFR (Non-Af Amer) > 60.0 ml/min 10/13/16 04:35 BUN/Creatinine Ratio 57.1 10/13/16 04:35 Glucose 120 mg/dL (70-105) H 10/13/16 04:35 POC Glucose 246 MG/DL (70 - 105) H 10/13/16 11:50 Hemoglobin A1c % 6.5 % (4.0-6.0) H 09/21/16 09:13 Whole Bld Lactic Acid 0.96 mmol/L (0.60-2.00) 09/21/16 22:05 Calcium 10.4 mg/dL (8.6-10.3) H 10/13/16 04:35 Magnesium 2.0 mg/dL (1.9-2.7) 10/07/16 04:40 Total Bilirubin 0.3 mg/dL (0.3-1.0) 10/13/16 04:35 Direct Bilirubin 0.07 mg/dL (0.0-0.2) 09/27/16 04:56 AST 20 U/L (13-39) 10/13/16 04:35 ALT 17 U/L (7-52) 10/13/16 04:35 Alkaline Phosphatase 115 U/L (34-104) H 10/13/16 04:35 Ammonia 52 umol/L (16-53) 10/03/16 04:45 Troponin I 0.79 ng/mL (0.01-0.05) H* D 09/21/16 22:05 B-Natriuretic Peptide 64.0 pg/mL (5.0-100.0) 10/03/16 04:45 Total Protein 7.2 gm/dL (6.0-8.3) 10/13/16 04:35 Albumin 2.9 gm/dL (3.7-5.3) L 10/13/16 04:35 Globulin 4.3 gm/dL 10/13/16 04:35 Albumin/Globulin Ratio 0.7 (1.0-1.8) L 10/13/16 04:35 Urine Source CATH 10/01/16 09:30 Urine Color YELLOW 10/01/16 09:30 Urine Clarity SL. CLOUDY (CLEAR) 10/01/16 09:30 Urine pH 7.5 10/01/16 09:30 Ur Specific [place] 1.020 (1.005-1.030) 10/01/16 09:30 Urine Protein 100 mg/dL (NEGATIVE) H 10/01/16 09:30 Urine Glucose (UA) NEGATIVE mg/dL (NEGATIVE) 10/01/16 09:30 Urine Ketones NEGATIVE mg/dL (NEGATIVE) 10/01/16 09:30 Urine Blood SMALL (NEGATIVE) H 10/01/16 09:30 Urine Nitrate NEGATIVE (NEGATIVE) 10/01/16 09:30 Urine Bilirubin NEGATIVE (NEGATIVE) 10/01/16 09:30 Urine Urobilinogen 0.2 E.U./dL (0.2 - 1.0) 10/01/16 09:30 Ur Leukocyte Esterase SMALL (NEGATIVE) H 10/01/16 09:30 Urine RBC 5-10 /hpf (0-5) H 10/01/16 09:30 Urine WBC 25-50 /hpf (0-5) H 10/01/16 09:30 Ur Epithelial Cells OCCASIONAL /lpf (FEW) 10/01/16 09:30 Urine Bacteria FEW /hpf (NONE SEEN) 10/01/16 09:30 Amikacin Peak 32.3 ug/mL (20.0-30.0) H 10/07/16 09:40 Amikacin Trough 3.3 ug/mL (1.0-8.0) 10/08/16 09:39 Vancomycin Trough 20.4 ug/mL (10-20) H 09/23/16 16:20 Digoxin 2.3 ng/ml (0.8-2.0) H 09/29/16 07:55 Blood Type O POSITIVE 10/06/16 09:45 Antibody Screen NEGATIVE 10/06/16 09:45 Crossmatch See Detail 10/06/16 09:45 - Physical Exam Vitals and I&O: Vital Signs Temp 98.1 F 10/13/16 08:00 Pulse 104 10/13/16 11:10 Resp 18 10/13/16 11:10 BP 138/67 10/13/16 10:00 Pulse Ox 100 10/13/16 12:00 Intake & Output 10/12/16 10/13/16 10/13/16 18:59 06:59 18:59 Intake Total 1133.667 720 120 Output Total 850 1300 100 Balance 283.667 -580 20 Intake: Intake, IV Amount 413.667 Amikacin 300 mg In 100 Dextrose 5% 100 ml @ 200 mls/hr IV Q24H [facility] Rx#: [id number] Fluconazole 200mg/100mL 100 200 mg In 100 ml @ 100 mls/hr IV Q24HR [facility] Rx#: [id number] Sodium Chloride 0.9% 500 213.667 ml @ 10 mls/hr IV .Q24H [facility] Rx#:[id number] Tube Feeding 720 720 120 Output: Urine 850 850 100 Stool 450 Other: # Bowel Movements 1 Stool Characteristics Soft Soft Brown Brown Active Medications: Current Medications Acetaminophen (Tylenol 650mg/20.3ml Suspension) 650 mg GT Q4H PRN PRN Reason: MILD PAIN AND FEVER >101 Stop: 11/20/16 12:41 Last Admin: 10/11/16 20:43 Dose: 650 mg Acetylcysteine (Mucomyst 20%) 3 ml HHN Q4HR CHING Stop: 11/24/16 15:59 Last Admin: 10/13/16 11:10 Dose: 3 ml Albuterol Sulfate (Albuterol 2.5mg/3ml Neb Ud) 2.5 mg HHN Q4HRT [facility] Stop: 11/25/16 10:59 Last Admin: 10/13/16 11:10 Dose: 2.5 mg Ascorbic Acid (Vitamin C) 500 mg GT DAILY CHING Stop: 11/21/16 08:59 Last Admin: 10/13/16 09:25 Dose: 500 mg Atorvastatin Calcium (Lipitor) 40 mg PO HS [facility] Stop: 12/07/16 20:59 Last Admin: 10/12/16 21:41 Dose: 40 mg Dextrose (D50w) 50 ml IVP PRN PRN PRN Reason: blood sugar < 60 Stop: 11/25/16 21:35 Last Admin: 10/13/16 00:33 Dose: 50 ml Diltiazem HCl (Cardizem) 20 mg IVP Q4H PRN PRN Reason: HR Greater than 130 per min Stop: 11/20/16 12:45 Last Admin: 09/28/16 08:05 Dose: 20 mg Folic Acid (Folate) 1 mg GT DAILY [facility] Stop: 11/21/16 08:59 Last Admin: 10/13/16 09:24 Dose: 1 mg Guaifenesin (Robitussin) 200 mg GT Q4HR PRN PRN Reason: Cough or Congestion Stop: 11/20/16 12:41 Last Admin: 10/07/16 12:59 Dose: 200 mg Hydromorphone HCl (Dilaudid) 0.5 mg IVP Q4HR PRN PRN Reason: Pain (Moderate) Stop: 12/11/16 13:58 Norepinephrine Bitartrate 4 mg (/ Dextrose) 254 mls @ 38.1 mls/hr IV TITR PRN; Protocol; 10 MCG/MIN PRN Reason: BP MAINTENANCE (PER PROTOCOL) Stop: 11/20/16 23:39 Last Admin: 09/28/16 12:18 Dose: 4 mcg/min, 15.24 mls/hr Fluconazole (Diflucan) 200 mg in 100 mls @ 100 mls/hr IV Q24HR [facility] Stop: 12/04/16 13:59 Last Admin: 10/13/16 13:19 Dose: 100 mls/hr Amikacin Sulfate 300 mg/ (Dextrose) 101.2 mls @ 200 mls/hr IV Q24H [facility] Stop: 12/08/16 15:59 Last Infusion: 10/12/16 16:40 Dose: 100 mls/hr Sodium Chloride (Nacl 0.9%) 500 mls @ 10 mls/hr IV .Q24H [facility] Stop: 12/09/16 16:29 Last Admin: 10/12/16 17:21 Dose: 10 mls/hr Insulin Aspart (Novolog) 0 units SUBQ Q6HR CHING PRN Reason: Protocol Stop: 12/09/16 17:59 Last Admin: 10/13/16 12:11 Dose: 2 units Insulin Human NPH (Novolin N) 30 units SUBQ BIDAC CHING PRN Reason: Protocol Stop: 12/07/16 16:29 Last Admin: 10/13/16 06:45 Dose: Not Given Ipratropium [place] (Atrovent Neb 0.5mg/2.5ml) 0.5 mg HHN Q4HRT CHING Stop: 11/25/16 10:59 Last Admin: 10/13/16 11:10 Dose: 0.5 mg Lactobacillus Rhamnosus (Culturelle) 1 each PO DAILY CHING Stop: 11/24/16 08:59 Last Admin: 10/13/16 09:25 Dose: 1 each Lactulose (Cephulac) 20 gm GT DAILY CHING Stop: 11/27/16 08:59 Last Admin: 10/13/16 09:25 Dose: 20 gm Loperamide HCl (Imodium) 2 mg GT Q4H PRN PRN Reason: DIARRHEA Stop: 11/20/16 15:12 Magnesium Hydroxide (Milk Of Magnesia) 30 ml GT DAILY PRN PRN Reason: Constipation Stop: 11/20/16 12:41 Metoclopramide HCl (Reglan) 5 mg IVP TID CHING Stop: 11/29/16 13:59 Last Admin: 10/13/16 13:19 Dose: 5 mg Miscellaneous (Probiotic Screen) 1 ea PRN PRN PRN Reason: PROTOCOL Stop: 11/24/16 08:48 Miscellaneous (Clinical Monitoring) 1 ea PRN PRN PRN Reason: XARELTO Stop: 11/28/16 11:19 Nystatin (Nystop) 100,000 units TP BID CHING Stop: 11/21/16 08:59 Last Admin: 10/13/16 09:23 Dose: 100,000 units Ondansetron HCl (Zofran) 4 mg IV Q8H PRN PRN Reason: Nausea / Vomiting Stop: 11/20/16 12:45 Rivaroxaban (Xarelto) 10 mg GT DAILY CHING Stop: 11/21/16 10:59 Last Admin: 10/13/16 09:24 Dose: 10 mg Vitamin A (Vitamin A & D) 5 gm TP DAILY CHING Stop: 11/21/16 14:59 Last Admin: 10/13/16 09:25 Dose: 5 gm Zinc Sulfate (Zinc Sulfate) 220 mg GT DAILY CHING Stop: 11/21/16 08:59 Last Admin: 10/13/16 09:24 Dose: 220 mg - Procedures Procedures: Procedures Procedure Code Date BLOOD TRANSFUSION SERVICE 17687 08/04/16 BYPASS DESCENDING COLON TO CUTANEOUS, OPEN APPROACH [id number] 09/21/16 CHANGE GASTROSTOMY TUBE 31719 06/09/14 COLOSTOMY 35057 09/21/16 AGNIESZKA BONE 20 SQ CM/< 07309 01/28/15 DIAGNOSTIC COLONOSCOPY 95621 03/06/16 EGD BIOPSY SINGLE/MULTIPLE 64025 03/06/16 EXCISION OF DUODENUM, ENDO, DIAGN [id number] 03/06/16 EXCISION OF SACRUM, OPEN APPROACH [id number] 09/21/16 EXCISION OF STOMACH, ENDO, DIAGN [id number] 03/06/16 IMMOBILIZ/WOUND ATTN NEC 93.59 01/28/15 INSERT INDWELLING CATH 57.94 10/18/05 INSERT TEMP BLADDER CATH 26606 10/18/05 INSPECTION OF LOWER INTESTINAL TRACT, ENDO [id number] 03/06/16 INSPECTION OF UPPER INTESTINAL TRACT, ENDO [id number] 10/27/15 LOC EXC BONE LESION NEC 77.69 01/28/15 PACKED CELL TRANSFUSION 99.04 10/20/14 REMOVAL OF PRESSURE SORE 23265 09/21/16 REPLACE GASTROSTOMY TUBE 97.02 06/09/14 RESPIRATORY VENTILATION, LESS THAN 24 CONSECUTIVE HOURS [id number] 09/21/16 TRANSFUSE NONAUT RED BLOOD CELLS IN PERIPH VEIN, PERC 97020R3 06/16/16 VENT MGMT INPAT INIT DAY 74630 09/21/16 Assessment/Plan - Problem List Patient Problems: All Active Problems HYPOTENSION WITH TACHYCARDIA AND CONGEST (Acute) Anemia (Acute 03/06/16) D64.9 Dyspnea (Acute) R06.00 Fever, unspecified (Acute) R50.9 Hyperglycemia (Acute) R73.9 Hyperosmolality and/or hypernatremia (Acute) E87.0 Mental retardation (Acute) F79 Other abnormal clinical finding (Acute) R68.89 Pneumonia (Acute) J18.9 Staphylococcal sepsis (Acute) Uncontrolled diabetes mellitus (Acute) E11.65 Urinary tract infection (Acute) Nutritional Asmnt/Malnutr-PDOC - Dietary Evaluation Malnutrition Findings (Please click <Entered> for more info): Nutritional Asmnt/Malnutrition Start: 09/22/16 12: 31 Text: Status: Complete Freq: Document 09/22/16 12:32 GSUN (Rec: 09/22/16 13:00 GSUN [email or web address]) Nutritional Asmnt/Malnutrition Patient General Information Nutritional Screening High Risk Screening Diagnosis Per ER: sepsis, UTI, HTN, possible PNA, elevated troponin Pertinent Medical Hx/Surgical Hx Per ER: HTN, DM, dyslipidemia, anemia, 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 RD consult for decubitus ulcer and trigger for BG >180. Discussed with RN regarding tube feeding regimens when tube feeding resumed. Unable to obtain new weight due to bedscale not properly calibrated. Current Diet Order/ Nutrition Support NPO Pertinent Medications Vitamin C, lipitor, D5, folate , novolog, novolin, cephulac, MOM, zofran, vancomycin, vitamin A and D, zinc sulfate Pertinent Labs 09/21: BUN 112H, creatinine 1. 6H, glucose 263H, A1c 6.5H, troponin 1.96H 09/22: Potassium 2.8L, BUN 74H (improving), creatinine 1.1 ( improved), glucose 278H POC glucose 58-303H Nutritional Hx/Data Height 1.45 m Height (Calculated Centimeters) 144.8 Current Weight (lbs) 43.998 kg Weight (Calculated Kilograms) 44.0 Weight (Calculated Grams) 37867.5 Weight Status Approriate GI Symptoms Food Allergies No Cultural/Ethnic/Restoration Belief Unknown. Usual diet at home [facility]: glucerna 1.2 at 60ml/hr x 20hrs with 200ml flush Q4hrs Skin Integrity/Comment: table hand: ulceration sacrum, right tow, right foot, left foot Estimated Nutritional Goals BEE in Kcals: Using Current wt Calories/Kcals/Kg 30-35kcal/kg Kcals Calculated 1320-1544kcal Protein: Using Current wt Protein g/k.5-1.7g/kg Protein Calculated 66-75g Fluid: ml 1320-1544ml (1ml/kcal) Nutritional Problem 2. Problem Problem Altered nutrition related laboratory values related to Etiology DM aeb Signs/Symptoms: episodes of hypoglycemia and hyperglycemia, 58L and 303H 1. Problem Problem Increased protein and kcal needs related to Etiology hypermetabolic state aeb Signs/Symptoms: sepsis, possible PNA, mulitple ulcerations Intervention/Recommendation Comments 1. Recommend Diabetisource 50ml/hr x 24hrs, providing 1440kcal and 72g protein, for glycemic control and to better meet nutritional needs. 2. Recommend 1 packet Arginaid BID via g-tube for multiple ulcerations wound healing. 3. If episodes of hypoglycemia persists, consider without carbohydrate restriction with Fibersource HN at 50ml/hrs x 24hrs. Expected Outcomes/Goals Expected Outcomes/Goals 1. Pt to meet 100% of estimated nutritional needs on tube feeding + Arginaid with tolerance. Physician Parameters for PEM Serum Albumin (g/dl) 3.5 - 5.0 (Normal)
--- NOTE | 2016-10-13 15:47 | Diagnostic Imaging Report ---
CT abdomen and pelvis without intravenous contrast Indication: Pain, malfunctioning G-tube Comparison: Upper GI series on 10/10/2016, and CT chest on 09/26/2016 Technique: Axial images were obtained from the lung bases to the bilateral proximal femurs without IV contrast. Coronal reconstructions were made. total DLP: 430, CTDI8.9 FINDINGS: There is persistent volume loss of the left lung with basal consolidative changes. Large hiatal hernia is seen with herniation into the left hemithorax. Few right basal nodular tree-in-bud infiltrates are noted. Exam is limited due to motion. Assessment of the solid organs is limited due to lack of IV contrast. No evidence of focal hepatic lesions. Mild splenomegaly is noted. Multiple splenic calcifications are noted. There is hyperplasia of the left adrenal gland. There is a large 1.8 cm stone within the left renal collecting system causing moderate chronic appearing left hydronephrosis. Numerous bilateral renal calculi are seen including stones in the renal collecting systems. There is also a 1 cm stone within the proximal right ureter. No significant right-sided hydronephrosis. Uribe catheter and pockets of gas in the urinary bladder urinary bladder wall thickening. There is evidence of partial sigmoidectomy and left lower quadrant ostomy. There is thickening of the distal sigmoid colonic and rectal wall. A percutaneous gastric feeding tube is noted with balloon in the stomach. There are inflammatory changes seen along the anterior abdominal wall with small fat-containing hernia along the midline ventral abdominal wall possibly adjacent to the umbilicus region with inflammatory changes in this region and possible calcification. High density in the appendix likely is due to previous oral contrast demonstration. No evidence of acute appendicitis. There is a left-sided sacral decubitus ulcer with inflammatory changes seen extending to the left sacral region. Postsurgical changes of the right femur are noted. There is evidence of the developmental right hip dysplasia with superolateral subluxation of right femoral head. Severe spinal scoliosis is noted. IMPRESSION: G-tube noted with balloon tip in the stomach. If indicated upper GI exam for G-tube check may be obtained for further assessment. Postsurgical changes with left lower quadrant colostomy placement. Inflammatory changes seen throughout the midline anterior abdominal wall with small fat-containing herniation along the umbilicus region with probable small calcification is region. No discrete fluid collection identified. Bowel wall thickening of the sigmoid colonic stump and the rectum. Multiple renal calculi including 1.8 cm left renal calculus along the left renal collecting system causing chronic appearing moderate left hydronephrosis and 1 cm stone within the proximal right ureter without evidence of significant hydronephrosis. Urinary bladder wall thickening with Uribe catheter and pockets of gas in the urinary bladder. Persistent volume loss of the left lung with left lung consolidative change. Large hiatal hernia with herniation to the base of the stomach Sacral decubitus ulcer on the left side extending to the left sacral region. Note that chronic osteomyelitis of the left sacrum cannot be excluded. Mild splenomegaly Atherosclerotic vascular disease Please refer to above report for details.
[2016-10-13] MEDS: Sodium Chloride 0.9% 500 ML IV SCH (17:18)
[2016-10-13] MEDS: HYDROmorphone 1 mg/mL 1mL Syr IVP PRN (20:33)
[2016-10-14] MEDS: INSULIN ASPART, RECOMBINANT 100 UNITS/ML SUBQ SCH ×4 (00:28→17:59)
--- NOTE | 2016-10-14 01:04 | Consultation ---
INPATIENT GASTROINTESTINAL CONSULTATION REFERRING PHYSICIAN: Dr. Sidhu. REASON FOR CONSULTATION: Malfunctioning G-tube. HISTORY OF PRESENT ILLNESS: A 56-year-old female, poor historian; is currently in the hospital for ongoing care. The patient has a G-tube with some leakage around it; that was yellow and purulent in color. The patient again is a poor historian, unable to give any meaningful history. PAST MEDICAL HISTORY: Sepsis, pneumonia, anemia, mental retardation. PAST SURGICAL HISTORY: PEG to the stomach. FAMILY HISTORY: Noncontributory. SOCIAL HISTORY: No tobacco, alcohol, or IV drug usage. ALLERGIES: MEPERIDINE, OLOPATADINE, PENICILLIN, PROCHLORPERAZINE, RISPERIDONE. CURRENT MEDICATIONS: Tylenol, Mucomyst, vitamin C, Lipitor, Cardizem, Diflucan, folic acid, Robitussin, Dilaudid, insulin, lactulose, Imodium, milk of magnesia, Reglan, nystatin, Xarelto. REVIEW OF SYSTEMS: Unobtainable. PHYSICAL EXAMINATION: VITAL SIGNS: Temperature 98.1, breathing 22, pulse of 108, blood pressure is 120/67, and satting 100%. GENERAL: In no apparent distress. EYES: Anicteric, normal conjunctivae. HEENT: Normocephalic, atraumatic. Moist mucous membranes. NECK: Soft, supple. CHEST: Clear. No effort. CARDIOVASCULAR: Regular rate and rhythm. ABDOMEN: Soft, nontender, nondistended with a G-tube and purulent discharge. SKIN: Warm, dry. EXTREMITIES: Reveal no cyanosis. LABORATORY DATA: Showed white count 6.8, hemoglobin 10.5, platelets of 184. IMPRESSION: This is a 56-year-old female with malfunctioning gastrostomy tube with some dysphagia. CT scan can be done to rule out any abscess associated with this. If the CT is negative, then we will need to change it. PLAN: 1. CT of the abdomen and pelvis. 2. We will eventually need to change the G-tube. Thank you for allowing me to participate. Please call me if you have any questions. JOB# [id number]
[2016-10-14] MEDS: HYDROmorphone 1 mg/mL 1mL Syr IVP PRN ×4 (01:10→20:03)
[2016-10-14] MEDS: Albuterol Nebulizer 2.5mg/3mL HHN SCH ×6 (03:25→22:02)
[2016-10-14] MEDS: Ipratropium Neb 0.5 mg/2.5 mL UD HHN SCH ×6 (03:25→22:02)
[2016-10-14 05:14] LABS: % BASOPHILS 0.4 % (0.0-2.0); % MONOCYTES 9.4 % (2.0-10.0); % NEUTROPHILS 61.2 % (40.0-80.0); HEMATOCRIT 31.1 % (35.0-45.0); HEMOGLOBIN 10.2 gm/dL (11.7-15.5); MEAN CELL VOLUME 87.6 fl (81-100); MEAN CORPUSCULAR HEMOGLOBIN 28.6 pg (27.0-31.0); MEAN CORPUSCULAR HGB CONC 32.6 pg (28.0-36.0); MEAN PLATELET VOLUME 8.8 fl; PLATELET COUNT 214 Th/cmm (150-400); RED BLOOD COUNT 3.55 Mil/cmm (3.80-5.10); RED CELL DISTRIBUTION WIDTH 14.4 % (11.5-20.0); WHITE BLOOD COUNT 6.4 Th/cmm (4.8-10.8)
[2016-10-14 05:40] LABS: ANION GAP 7.9 (7.0-16.0); BUN - UREA NITROGEN 41 mg/dL (7-25); BUN/CREATININE RATIO 58.6; CALCIUM SERUM 10.6 mg/dL (8.6-10.3); CARBON DIOXIDE 34.2 mEq/L (21.0-31.0); CHLORIDE 115 mEq/L (98-107); CREATININE - SERUM 0.7 mg/dL (0.6-1.2); GLUCOSE 144 mg/dL (70-105); POTASSIUM SERUM 4.1 mEq/L (3.5-5.1); SODIUM SERUM 153 mEq/L (136-145)
[2016-10-14] MEDS: INSULIN HUMAN ISOPHANE (NPH) 100 UNITS/ML SUBQ SCH ×2 (06:31→16:34)
[2016-10-14] MEDS: Lactulose 10 Gm/15 mL 30mL UDC GT SCH (08:16)
[2016-10-14] MEDS: Metoclopramide 5 mg/mL 2mL Vial IVP SCH ×3 (08:16→21:58)
[2016-10-14] MEDS: Multivitamin w/ Minerals Tab GT SCH (08:16)
[2016-10-14] MEDS: Lactobacillus Rhamnosus 10 Billion CFU Capsule PO SCH (08:16)
[2016-10-14] MEDS: NYSTATIN 100000 UNITS/GM POWD TP SCH ×2 (08:17→16:26)
[2016-10-14] MEDS: Vitamin A/Vitamin D 5 gm Packet TP SCH (08:17)
[2016-10-14] MEDS ORDERED: Dextrose 5% 1,000 ML IV SCH (12:15)
--- NOTE | 2016-10-14 12:23 | Diagnostic Imaging Report ---
Portable chest x-ray HISTORY: Shortness of breath Compared with prior exam of October 10, 2016, increasing density with volume loss noted in the left lower hemithorax. Findings correspond to parenchymal changes consistent with atelectasis noted on a CT scan of October 13, 2016. Right lung remains clear. IMPRESSION: 1. Increasing density associated associated with volume loss in the left lower hemithorax. Findings are consistent with parenchymal changes associated with atelectasis seen on a prior CT scan of October 13, 2016.
--- NOTE | 2016-10-14 12:44 | Internal Medicine Prog Note ---
Internal Medicine Subjective - Subjective Service Date: 10/14/16 Patient seen and examined:: with staff Patient is:: awake Patient Complaints of:: congestion Internal Medicine Objective - Results Result Diagrams: 10/14/16 04:30 10/14/16 04:30 Recent Labs: Laboratory Last Values WBC 6.4 Th/cmm (4.8-10.8) 10/14/16 04:30 RBC 3.55 Mil/cmm (3.80-5.10) L 10/14/16 04:30 Hgb 10.2 gm/dL (11.7-15.5) L 10/14/16 04:30 Hct 31.1 % (35.0-45.0) L 10/14/16 04:30 MCV 87.6 fl (81-100) 10/14/16 04:30 MCH 28.6 pg (27.0-31.0) 10/14/16 04:30 MCHC Differential 32.6 pg (28.0-36.0) 10/14/16 04:30 RDW 14.4 % (11.5-20.0) 10/14/16 04:30 Plt Count 214 Th/cmm (150-400) 10/14/16 04:30 MPV 8.8 fl 10/14/16 04:30 Neutrophils % 61.2 % (40.0-80.0) 10/14/16 04:30 Band Neutrophils % 6 % (0-10) 10/06/16 04:50 Lymphocytes % 24.0 % (20.0-50.0) 10/14/16 04:30 Monocytes % 9.4 % (2.0-10.0) 10/14/16 04:30 Eosinophils % 5.0 % (0.0-5.0) 10/14/16 04:30 Basophils % 0.4 % (0.0-2.0) 10/14/16 04:30 Neutrophils (Manual) 63 % (40-80) 10/06/16 04:50 Lymphocytes 15 % (20-50) L 10/06/16 04:50 Monocytes 9 % (2-10) 10/06/16 04:50 Eosinophils 6 % (0-5) H 10/06/16 04:50 Basophils 1 % (0-3) 10/06/16 04:50 Platelet Estimate DECREASED PLATELETS (NORMAL) 10/06/16 04:50 Platelet Morphology NORMAL (NORMAL) 10/06/16 04:50 Polychromasia 1+ 09/22/16 04:49 Anisocytosis 1+ 10/06/16 04:50 RBC Morph Micro Appear ABNORMAL (NORMAL) 10/06/16 04:50 PT 10.3 SECONDS (9.5-11.5) 10/03/16 04:45 INR 0.99 (0.5-1.4) 10/03/16 04:45 PTT (Actin FS) 26.3 SECONDS (26.0-38.0) 10/03/16 04:45 Specimen Source Arterial 10/08/16 13:40 Sample Site Left Radial 10/08/16 13:40 pH 7.43 (7.35-7.45) 10/08/16 13:40 pCO2 49.0 mmHg (35.0-45.0) H 10/08/16 13:40 pO2 154.0 mmHg (80.0-100.0) H 10/08/16 13:40 HCO3 32.5 mEq/L (20.0-26.0) H 10/08/16 13:40 Base Excess 7.0 mEq/L (-3.0-3.0) H 10/08/16 13:40 O2 Saturation 99.0 % (92.0-100.0) 10/08/16 13:40 Emmanuel Test YES 10/08/16 13:40 Vent Rate 12 10/08/16 13:40 Inspired O2 60 10/08/16 13:40 Tidal Volume NA 10/08/16 13:40 PEEP NA 10/08/16 13:40 Pressure (ins/psv/peep) NA 10/08/16 13:40 Critical Value E.MCARTHUR 10/08/16 13:40 Sodium 153 mEq/L (136-145) H 10/14/16 04:30 Potassium 4.1 mEq/L (3.5-5.1) 10/14/16 04:30 Chloride 115 mEq/L (98-107) H 10/14/16 04:30 Carbon Dioxide 34.2 mEq/L (21.0-31.0) H 10/14/16 04:30 Anion Gap 7.9 (7.0-16.0) 10/14/16 04:30 BUN 41 mg/dL (7-25) H 10/14/16 04:30 Creatinine 0.7 mg/dL (0.6-1.2) 10/14/16 04:30 Est GFR ( Amer) > 60.0 ml/min (>90) 10/14/16 04:30 Est GFR (Non-Af Amer) > 60.0 ml/min 10/14/16 04:30 BUN/Creatinine Ratio 58.6 10/14/16 04:30 Glucose 144 mg/dL (70-105) H 10/14/16 04:30 POC Glucose 187 MG/DL (70 - 105) H 10/14/16 11:47 Hemoglobin A1c % 6.5 % (4.0-6.0) H 09/21/16 09:13 Whole Bld Lactic Acid 0.96 mmol/L (0.60-2.00) 09/21/16 22:05 Calcium 10.6 mg/dL (8.6-10.3) H 10/14/16 04:30 Magnesium 2.0 mg/dL (1.9-2.7) 10/07/16 04:40 Total Bilirubin 0.3 mg/dL (0.3-1.0) 10/13/16 04:35 Direct Bilirubin 0.07 mg/dL (0.0-0.2) 09/27/16 04:56 AST 20 U/L (13-39) 10/13/16 04:35 ALT 17 U/L (7-52) 10/13/16 04:35 Alkaline Phosphatase 115 U/L (34-104) H 10/13/16 04:35 Ammonia 52 umol/L (16-53) 10/03/16 04:45 Troponin I 0.79 ng/mL (0.01-0.05) H* D 09/21/16 22:05 B-Natriuretic Peptide 64.0 pg/mL (5.0-100.0) 10/03/16 04:45 Total Protein 7.2 gm/dL (6.0-8.3) 10/13/16 04:35 Albumin 2.9 gm/dL (3.7-5.3) L 10/13/16 04:35 Globulin 4.3 gm/dL 10/13/16 04:35 Albumin/Globulin Ratio 0.7 (1.0-1.8) L 10/13/16 04:35 Urine Source CATH 10/01/16 09:30 Urine Color YELLOW 10/01/16 09:30 Urine Clarity SL. CLOUDY (CLEAR) 10/01/16 09:30 Urine pH 7.5 10/01/16 09:30 Ur Specific [place] 1.020 (1.005-1.030) 10/01/16 09:30 Urine Protein 100 mg/dL (NEGATIVE) H 10/01/16 09:30 Urine Glucose (UA) NEGATIVE mg/dL (NEGATIVE) 10/01/16 09:30 Urine Ketones NEGATIVE mg/dL (NEGATIVE) 10/01/16 09:30 Urine Blood SMALL (NEGATIVE) H 10/01/16 09:30 Urine Nitrate NEGATIVE (NEGATIVE) 10/01/16 09:30 Urine Bilirubin NEGATIVE (NEGATIVE) 10/01/16 09:30 Urine Urobilinogen 0.2 E.U./dL (0.2 - 1.0) 10/01/16 09:30 Ur Leukocyte Esterase SMALL (NEGATIVE) H 10/01/16 09:30 Urine RBC 5-10 /hpf (0-5) H 10/01/16 09:30 Urine WBC 25-50 /hpf (0-5) H 10/01/16 09:30 Ur Epithelial Cells OCCASIONAL /lpf (FEW) 10/01/16 09:30 Urine Bacteria FEW /hpf (NONE SEEN) 10/01/16 09:30 Amikacin Peak 32.3 ug/mL (20.0-30.0) H 10/07/16 09:40 Amikacin Trough 3.3 ug/mL (1.0-8.0) 10/08/16 09:39 Vancomycin Trough 20.4 ug/mL (10-20) H 09/23/16 16:20 Digoxin 2.3 ng/ml (0.8-2.0) H 09/29/16 07:55 Blood Type O POSITIVE 10/06/16 09:45 Antibody Screen NEGATIVE 10/06/16 09:45 Crossmatch See Detail 10/06/16 09:45 - Physical Exam Vitals and I&O: Vital Signs Temp 97.4 F 10/14/16 08:00 Pulse 105 10/14/16 12:09 Resp 30 10/14/16 12:09 BP 146/85 10/14/16 08:00 Pulse Ox 98 10/14/16 12:09 Intake & Output 10/13/16 10/14/16 10/14/16 18:59 06:59 18:59 Intake Total 1175.867 870 Output Total 900 1350 Balance 275.867 -480 Intake: Intake, IV Amount 455.867 Amikacin 300 mg In 101.2 Dextrose 5% 100 ml @ 200 mls/hr IV Q24H [facility] Rx#: [id number] Fluconazole 200mg/100mL 100 200 mg In 100 ml @ 100 mls/hr IV Q24HR [facility] Rx#: [id number] Sodium Chloride 0.9% 500 254.667 ml @ 10 mls/hr IV .Q24H [facility] Rx#:[id number] Oral 0 Tube Feeding 720 720 Other 150 Output: Urine 900 1100 Stool 250 Other: Stool Characteristics Soft Soft Soft Brown Brown Brown Active Medications: Current Medications Acetaminophen (Tylenol 650mg/20.3ml Suspension) 650 mg GT Q4H PRN PRN Reason: MILD PAIN AND FEVER >101 Stop: 11/20/16 12:41 Last Admin: 10/11/16 20:43 Dose: 650 mg Acetylcysteine (Mucomyst 20%) 3 ml HHN Q4HR [facility] Stop: 11/24/16 15:59 Last Admin: 10/14/16 12:08 Dose: 3 ml Albuterol Sulfate (Albuterol 2.5mg/3ml Neb Ud) 2.5 mg HHN Q4HRT [facility] Stop: 11/25/16 10:59 Last Admin: 10/14/16 12:08 Dose: 2.5 mg Atorvastatin Calcium (Lipitor) 40 mg PO HS [facility] Stop: 12/07/16 20:59 Last Admin: 10/13/16 20:41 Dose: 40 mg Dextrose (D50w) 50 ml IVP PRN PRN PRN Reason: blood sugar < 60 Stop: 11/25/16 21:35 Last Admin: 10/13/16 00:33 Dose: 50 ml Diltiazem HCl (Cardizem) 20 mg IVP Q4H PRN PRN Reason: HR Greater than 130 per min Stop: 11/20/16 12:45 Last Admin: 09/28/16 08:05 Dose: 20 mg Folic Acid (Folate) 1 mg GT DAILY [facility] Stop: 11/21/16 08:59 Last Admin: 10/14/16 08:16 Dose: 1 mg Guaifenesin (Robitussin) 200 mg GT Q4HR PRN PRN Reason: Cough or Congestion Stop: 11/20/16 12:41 Last Admin: 10/07/16 12:59 Dose: 200 mg Hydromorphone HCl (Dilaudid) 0.5 mg IVP Q4HR PRN PRN Reason: Pain (Moderate) Stop: 12/11/16 13:58 Last Admin: 10/14/16 05:03 Dose: 0.5 mg Norepinephrine Bitartrate 4 mg (/ Dextrose) 254 mls @ 38.1 mls/hr IV TITR PRN; Protocol; 10 MCG/MIN PRN Reason: BP MAINTENANCE (PER PROTOCOL) Stop: 11/20/16 23:39 Last Admin: 09/28/16 12:18 Dose: 4 mcg/min, 15.24 mls/hr Fluconazole (Diflucan) 200 mg in 100 mls @ 100 mls/hr IV Q24HR [facility] Stop: 12/04/16 13:59 Last Infusion: 10/13/16 18:48 Dose: Infused Amikacin Sulfate 300 mg/ (Dextrose) 101.2 mls @ 200 mls/hr IV Q24H [facility] Stop: 12/08/16 15:59 Last Infusion: 10/13/16 18:49 Dose: Infused Dextrose (D5w) 1,000 mls @ 10 mls/hr IV .Q24H [facility] Stop: 12/13/16 12:14 Insulin Aspart (Novolog) 0 units SUBQ Q6HR [facility] PRN Reason: Protocol Stop: 12/09/16 17:59 Last Admin: 10/14/16 11:49 Dose: Not Given Insulin Human NPH (Novolin N) 30 units SUBQ BIDAC [facility] PRN Reason: Protocol Stop: 12/07/16 16:29 Last Admin: 10/14/16 06:31 Dose: 30 units Ipratropium Mastic (Atrovent Neb 0.5mg/2.5ml) 0.5 mg HHN Q4HRT [facility] Stop: 11/25/16 10:59 Last Admin: 10/14/16 12:08 Dose: 0.5 mg Lactobacillus Rhamnosus (Culturelle) 1 each PO DAILY [facility] Stop: 11/24/16 08:59 Last Admin: 10/14/16 08:16 Dose: 1 each Lactulose (Cephulac) 20 gm GT DAILY [facility] Stop: 11/27/16 08:59 Last Admin: 10/14/16 08:16 Dose: 20 gm Loperamide HCl (Imodium) 2 mg GT Q4H PRN PRN Reason: DIARRHEA Stop: 11/20/16 15:12 Magnesium Hydroxide (Milk Of Magnesia) 30 ml GT DAILY PRN PRN Reason: Constipation Stop: 11/20/16 12:41 Metoclopramide HCl (Reglan) 5 mg IVP TID [facility] Stop: 11/29/16 13:59 Last Admin: 10/14/16 08:16 Dose: 5 mg Miscellaneous (Probiotic Screen) 1 ea PRN PRN PRN Reason: PROTOCOL Stop: 11/24/16 08:48 Miscellaneous (Clinical Monitoring) 1 [facility] PRN PRN PRN Reason: XARELTO Stop: 11/28/16 11:19 Nystatin (Nystop) 100,000 units TP BID [facility] Stop: 11/21/16 08:59 Last Admin: 10/14/16 08:17 Dose: 100,000 units Ondansetron HCl (Zofran) 4 mg IV Q8H PRN PRN Reason: Nausea / Vomiting Stop: 11/20/16 12:45 Rivaroxaban (Xarelto) 10 mg GT DAILY [facility] Stop: 11/21/16 10:59 Last Admin: 10/14/16 08:16 Dose: 10 mg Vitamin A (Vitamin A & D) 5 gm TP DAILY [facility] Stop: 11/21/16 14:59 Last Admin: 10/14/16 08:17 Dose: 5 gm Zinc Sulfate (Zinc Sulfate) 220 mg GT DAILY [facility] Stop: 11/21/16 08:59 Last Admin: 10/14/16 08:16 Dose: 220 mg General: weak HEENT: NC/AT Neck: Supple Lungs: congested Cardiovascular: RRR, Normal S1, Normal S2, without murmur Abdomen: soft non-tender, non-distended, positive bowel sound Extremities: clear Neurological: no change - Procedures Procedures: Procedures Procedure Code Date BLOOD TRANSFUSION SERVICE 56014 03/06/16 BYPASS DESCENDING COLON TO CUTANEOUS, OPEN APPROACH [id number] 09/21/16 CHANGE GASTROSTOMY TUBE 38943 06/09/14 COLOSTOMY 61738 09/21/16 AGNIESZKA BONE 20 SQ CM/< 23407 01/28/15 DIAGNOSTIC COLONOSCOPY 48229 03/06/16 EGD BIOPSY SINGLE/MULTIPLE 85046 03/06/16 EXCISION OF DUODENUM, ENDO, DIAGN [id number] 03/06/16 EXCISION OF SACRUM, OPEN APPROACH [id number] 09/21/16 EXCISION OF STOMACH, ENDO, DIAGN [id number] 03/06/16 IMMOBILIZ/WOUND ATTN NEC 93.59 01/28/15 INSERT INDWELLING CATH 57.94 10/18/05 INSERT TEMP BLADDER CATH 31259 10/18/05 INSPECTION OF LOWER INTESTINAL TRACT, ENDO [id number] 03/06/16 INSPECTION OF UPPER INTESTINAL TRACT, ENDO [id number] 10/27/15 LOC EXC BONE LESION NEC 77.69 01/28/15 PACKED CELL TRANSFUSION 99.04 10/20/14 REMOVAL OF PRESSURE SORE 30006 09/21/16 REPLACE GASTROSTOMY TUBE 97.02 06/09/14 RESPIRATORY VENTILATION, LESS THAN 24 CONSECUTIVE HOURS [id number] 09/21/16 TRANSFUSE NONAUT RED BLOOD CELLS IN PERIPH VEIN, PERC 69170V4 06/16/16 VENT MGMT INPAT INIT DAY 79043 09/21/16 Internal Medicine Assmt/Plan - Assessment Assessment: sepsis shock pmn acute on crf anemia leukocytosis hypoglycemia hypernatremia mr cp elevated ammonia ESBL URINE MRSA NARES - Plan Plan: peg to be placed monitor for any respiratory distress free h20 f/u labs in am ivabx bronchodilators wound care Nutritional Asmnt/Malnutr-PDOC - Dietary Evaluation Malnutrition Findings (Please click <Entered> for more info): Nutritional Asmnt/Malnutrition Start: 09/22/16 12: 31 Text: Status: Complete Freq: Document 09/22/16 12:32 GSUN (Rec: 09/22/16 13:00 [facility] Nutritional Asmnt/Malnutrition Patient General Information Nutritional Screening High Risk Screening Diagnosis Per ER: sepsis, UTI, HTN, possible PNA, elevated troponin Pertinent Medical Hx/Surgical Hx Per ER: HTN, DM, dyslipidemia, anemia, 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 RD consult for decubitus ulcer and trigger for BG >180. Discussed with RN regarding tube feeding regimens when tube feeding resumed. Unable to obtain new weight due to bedscale not properly calibrated. Current Diet Order/ Nutrition Support NPO Pertinent Medications Vitamin C, lipitor, D5, folate , novolog, novolin, cephulac, MOM, zofran, vancomycin, vitamin A and D, zinc sulfate Pertinent Labs 09/21: BUN 112H, creatinine 1. 6H, glucose 263H, A1c 6.5H, troponin 1.96H 09/22: Potassium 2.8L, BUN 74H (improving), creatinine 1.1 ( improved), glucose 278H POC glucose 58-303H Nutritional Hx/Data Height 4 ft 9 in Height (Calculated Centimeters) 144.8 Current Weight (lbs) 97 lb Weight (Calculated Kilograms) 44.0 Weight (Calculated Grams) 77350.5 Weight Status Approriate GI Symptoms Food Allergies No Cultural/Ethnic/Judaism Belief Unknown. Usual diet at home [place]: glucerna 1.2 at 60ml/hr x 20hrs with 200ml flush Q4hrs Skin Integrity/Comment: record cutter: ulceration sacrum, right tow, right foot, left foot Estimated Nutritional Goals BEE in Kcals: Using Current wt Calories/Kcals/Kg 30-35kcal/kg Kcals Calculated 1320-1544kcal Protein: Using Current wt Protein g/k.5-1.7g/kg Protein Calculated 66-75g Fluid: ml 1320-1544ml (1ml/kcal) Nutritional Problem 2. Problem Problem Altered nutrition related laboratory values related to Etiology DM aeb Signs/Symptoms: episodes of hypoglycemia and hyperglycemia, 58L and 303H 1. Problem Problem Increased protein and kcal needs related to Etiology hypermetabolic state aeb Signs/Symptoms: sepsis, possible PNA, mulitple ulcerations Intervention/Recommendation Comments 1. Recommend Diabetisource 50ml/hr x 24hrs, providing 1440kcal and 72g protein, for glycemic control and to better meet nutritional needs. 2. Recommend 1 packet Arginaid BID via g-tube for multiple ulcerations wound healing. 3. If episodes of hypoglycemia persists, consider without carbohydrate restriction with Fibersource HN at 50ml/hrs x 24hrs. Expected Outcomes/Goals Expected Outcomes/Goals 1. Pt to meet 100% of estimated nutritional needs on tube feeding + Arginaid with tolerance. Physician Parameters for PEM Serum Albumin (g/dl) 3.5 - 5.0 (Normal)
[2016-10-14] MEDS: Fluconazole 200mg/100mL 200 MG/100 ML BAG IV SCH (13:14)
[2016-10-14] MEDS ORDERED: IOHEXOL 300MG/ML 50 ML VIAL ONE (19:11)
--- NOTE | 2016-10-14 19:49 | Operative Report ---
INPATIENT GASTROINTESTINAL PROCEDURE PROCEDURE: G-tube change. REFERRING PHYSICIAN: Stephon Sidhu D.O. REASON FOR PROCEDURE: Malfunctioning G-tube. PREOPERATIVE DIAGNOSES: Malfunctioning G-tube and dysphagia. POSTOPERATIVE DIAGNOSIS: New 20-Dominican gastrostomy tube placed. MEDICATIONS: None. DESCRIPTION OF PROCEDURE: The patient was placed on her back. The old G-tube was identified. It was a balloon type. It was removed after deflating the balloon and pulled out. At this point, a 20-Dominican gastrostomy tube that was lubricated at the tip was inserted through the gastrocutaneous fistula entering into stomach lumen. Internal balloon was inflated with 15 mL of sterile saline. The outer flange was secured in position. Procedure was then completed. COMPLICATIONS: None. FINDINGS: New 20-Dominican gastrostomy tube placed. RECOMMENDATIONS: 1. KUB with Gastrografin to confirm placement in the stomach. 2. If it is in stomach, may begin using it. 3. Check residual every 6 hours, hold if greater than 100 mL. Thank you for allowing me to participate. Please call me if any questions. JOB# [id number]
[2016-10-15] MEDS: INSULIN ASPART, RECOMBINANT 100 UNITS/ML SUBQ SCH ×5 (00:24→23:43)
[2016-10-15] MEDS: HYDROmorphone 1 mg/mL 1mL Syr IVP PRN ×2 (01:46→08:37)
[2016-10-15] MEDS: Ipratropium Neb 0.5 mg/2.5 mL UD HHN SCH ×6 (02:37→22:52)
[2016-10-15] MEDS: Albuterol Nebulizer 2.5mg/3mL HHN SCH ×6 (02:37→22:52)
[2016-10-15 05:11] LABS: % BASOPHILS 0.3 % (0.0-2.0); % EOSINOPHILS 4.9 % (0.0-5.0); % LYMPHOCYTES 26.2 % (20.0-50.0); % MONOCYTES 8.8 % (2.0-10.0); % NEUTROPHILS 59.8 % (40.0-80.0); HEMATOCRIT 30.6 % (35.0-45.0); HEMOGLOBIN 10.2 gm/dL (11.7-15.5); MEAN CELL VOLUME 88.4 fl (81-100); MEAN CORPUSCULAR HEMOGLOBIN 29.4 pg (27.0-31.0); MEAN CORPUSCULAR HGB CONC 33.3 pg (28.0-36.0); MEAN PLATELET VOLUME 8.7 fl; NEUTROPHILE ABSOLUTE 3.3 Th/cmm (1.8-8.0); PLATELET COUNT 226 Th/cmm (150-400); RED BLOOD COUNT 3.46 Mil/cmm (3.80-5.10); RED CELL DISTRIBUTION WIDTH 14.4 % (11.5-20.0); WHITE BLOOD COUNT 5.5 Th/cmm (4.8-10.8)
[2016-10-15 05:38] LABS: ANION GAP 8.6 (7.0-16.0); BUN - UREA NITROGEN 38 mg/dL (7-25); BUN/CREATININE RATIO 47.5; CALCIUM SERUM 10.8 mg/dL (8.6-10.3); CARBON DIOXIDE 32.2 mEq/L (21.0-31.0); CHLORIDE 112 mEq/L (98-107); CREATININE - SERUM 0.8 mg/dL (0.6-1.2); GLUCOSE 247 mg/dL (70-105); POTASSIUM SERUM 3.8 mEq/L (3.5-5.1); SODIUM SERUM 149 mEq/L (136-145)
[2016-10-15] MEDS: INSULIN HUMAN ISOPHANE (NPH) 100 UNITS/ML SUBQ SCH ×2 (07:42→16:55)
[2016-10-15] MEDS: Multivitamin w/ Minerals Tab GT SCH (08:39)
[2016-10-15] MEDS: Metoclopramide 5 mg/mL 2mL Vial IVP SCH ×2 (08:42→14:06)
[2016-10-15] MEDS: Lactulose 10 Gm/15 mL 30mL UDC GT SCH (08:43)
[2016-10-15] MEDS: Lactobacillus Rhamnosus 10 Billion CFU Capsule PO SCH (08:44)
--- NOTE | 2016-10-15 09:28 | Diagnostic Imaging Report ---
Upper GI exam limited History: Assess G-tube Comparison: CT abdomen and pelvis on 10/13/2016 and upper GI series on 10/10/2016 Technique/procedure: Space Engineer view demonstrates severe spinal scoliosis. Gas-filled loops of bowel are seen with left lower quadrant ostomy noted. Distal fecal impaction is also noted in the rectum. Multiple calcifications are seen bilaterally suggestive of renal calcifications when compared to recent CT examination. The following image demonstrates contrast opacification of the stomach. Severe spinal scoliosis is noted. Developmental right hip dysplasia is noted. IMPRESSION: Intraluminal confirmation of patient's percutaneous gastric feeding tube. Bilateral calcifications most client service representative of patient's multiple renal calculi when compared to recent CT examination on 10/13/2016 Probable mild ileus. There is fecal impaction of the rectum.
[2016-10-15] MEDS: Vitamin A/Vitamin D 5 gm Packet TP SCH (10:00)
[2016-10-15] MEDS: Fluconazole 200mg/100mL 200 MG/100 ML BAG IV SCH (14:07)
--- NOTE | 2016-10-15 16:08 | Internal Medicine Prog Note ---
Internal Medicine Subjective - Subjective Service Date: 10/15/16 Patient seen and examined:: with staff Patient is:: awake Per staff patient is:: no adverse event Internal Medicine Objective - Results Result Diagrams: 10/15/16 04:30 10/15/16 04:30 Recent Labs: Laboratory Last Values WBC 5.5 Th/cmm (4.8-10.8) 10/15/16 04:30 RBC 3.46 Mil/cmm (3.80-5.10) L 10/15/16 04:30 Hgb 10.2 gm/dL (11.7-15.5) L 10/15/16 04:30 Hct 30.6 % (35.0-45.0) L 10/15/16 04:30 MCV 88.4 fl (81-100) 10/15/16 04:30 MCH 29.4 pg (27.0-31.0) 10/15/16 04:30 MCHC Differential 33.3 pg (28.0-36.0) 10/15/16 04:30 RDW 14.4 % (11.5-20.0) 10/15/16 04:30 Plt Count 226 Th/cmm (150-400) 10/15/16 04:30 MPV 8.7 fl 10/15/16 04:30 Neutrophils % 59.8 % (40.0-80.0) 10/15/16 04:30 Band Neutrophils % 6 % (0-10) 10/06/16 04:50 Lymphocytes % 26.2 % (20.0-50.0) 10/15/16 04:30 Monocytes % 8.8 % (2.0-10.0) 10/15/16 04:30 Eosinophils % 4.9 % (0.0-5.0) 10/15/16 04:30 Basophils % 0.3 % (0.0-2.0) 10/15/16 04:30 Neutrophils (Manual) 63 % (40-80) 10/06/16 04:50 Lymphocytes 15 % (20-50) L 10/06/16 04:50 Monocytes 9 % (2-10) 10/06/16 04:50 Eosinophils 6 % (0-5) H 10/06/16 04:50 Basophils 1 % (0-3) 10/06/16 04:50 Platelet Estimate DECREASED PLATELETS (NORMAL) 10/06/16 04:50 Platelet Morphology NORMAL (NORMAL) 10/06/16 04:50 Polychromasia 1+ 09/22/16 04:49 Anisocytosis 1+ 10/06/16 04:50 RBC Morph Micro Appear ABNORMAL (NORMAL) 10/06/16 04:50 PT 10.3 SECONDS (9.5-11.5) 10/03/16 04:45 INR 0.99 (0.5-1.4) 10/03/16 04:45 PTT (Actin FS) 26.3 SECONDS (26.0-38.0) 10/03/16 04:45 Specimen Source Arterial 10/08/16 13:40 Sample Site Left Radial 10/08/16 13:40 pH 7.43 (7.35-7.45) 10/08/16 13:40 pCO2 49.0 mmHg (35.0-45.0) H 10/08/16 13:40 pO2 154.0 mmHg (80.0-100.0) H 10/08/16 13:40 HCO3 32.5 mEq/L (20.0-26.0) H 10/08/16 13:40 Base Excess 7.0 mEq/L (-3.0-3.0) H 10/08/16 13:40 O2 Saturation 99.0 % (92.0-100.0) 10/08/16 13:40 Emmanuel Test YES 10/08/16 13:40 Vent Rate 12 10/08/16 13:40 Inspired O2 60 10/08/16 13:40 Tidal Volume NA 10/08/16 13:40 PEEP NA 10/08/16 13:40 Pressure (ins/psv/peep) NA 10/08/16 13:40 Critical Value E.MCARTHUR 10/08/16 13:40 Sodium 149 mEq/L (136-145) H 10/15/16 04:30 Potassium 3.8 mEq/L (3.5-5.1) 10/15/16 04:30 Chloride 112 mEq/L (98-107) H 10/15/16 04:30 Carbon Dioxide 32.2 mEq/L (21.0-31.0) H 10/15/16 04:30 Anion Gap 8.6 (7.0-16.0) 10/15/16 04:30 BUN 38 mg/dL (7-25) H 10/15/16 04:30 Creatinine 0.8 mg/dL (0.6-1.2) 10/15/16 04:30 Est GFR ( Amer) > 60.0 ml/min (>90) 10/15/16 04:30 Est GFR (Non-Af Amer) > 60.0 ml/min 10/15/16 04:30 BUN/Creatinine Ratio 47.5 10/15/16 04:30 Glucose 247 mg/dL (70-105) H 10/15/16 04:30 POC Glucose 227 MG/DL (70 - 105) H 10/15/16 12:16 Hemoglobin A1c % 6.5 % (4.0-6.0) H 09/21/16 09:13 Whole Bld Lactic Acid 0.96 mmol/L (0.60-2.00) 09/21/16 22:05 Calcium 10.8 mg/dL (8.6-10.3) H 10/15/16 04:30 Magnesium 2.0 mg/dL (1.9-2.7) 10/07/16 04:40 Total Bilirubin 0.3 mg/dL (0.3-1.0) 10/13/16 04:35 Direct Bilirubin 0.07 mg/dL (0.0-0.2) 09/27/16 04:56 AST 20 U/L (13-39) 10/13/16 04:35 ALT 17 U/L (7-52) 10/13/16 04:35 Alkaline Phosphatase 115 U/L (34-104) H 10/13/16 04:35 Ammonia 52 umol/L (16-53) 10/03/16 04:45 Troponin I 0.79 ng/mL (0.01-0.05) H* D 09/21/16 22:05 B-Natriuretic Peptide 64.0 pg/mL (5.0-100.0) 10/03/16 04:45 Total Protein 7.2 gm/dL (6.0-8.3) 10/13/16 04:35 Albumin 2.9 gm/dL (3.7-5.3) L 10/13/16 04:35 Globulin 4.3 gm/dL 10/13/16 04:35 Albumin/Globulin Ratio 0.7 (1.0-1.8) L 10/13/16 04:35 Urine Source CATH 10/01/16 09:30 Urine Color YELLOW 10/01/16 09:30 Urine Clarity SL. CLOUDY (CLEAR) 10/01/16 09:30 Urine pH 7.5 10/01/16 09:30 Ur Specific [place] 1.020 (1.005-1.030) 10/01/16 09:30 Urine Protein 100 mg/dL (NEGATIVE) H 10/01/16 09:30 Urine Glucose (UA) NEGATIVE mg/dL (NEGATIVE) 10/01/16 09:30 Urine Ketones NEGATIVE mg/dL (NEGATIVE) 10/01/16 09:30 Urine Blood SMALL (NEGATIVE) H 10/01/16 09:30 Urine Nitrate NEGATIVE (NEGATIVE) 10/01/16 09:30 Urine Bilirubin NEGATIVE (NEGATIVE) 10/01/16 09:30 Urine Urobilinogen 0.2 E.U./dL (0.2 - 1.0) 10/01/16 09:30 Ur Leukocyte Esterase SMALL (NEGATIVE) H 10/01/16 09:30 Urine RBC 5-10 /hpf (0-5) H 10/01/16 09:30 Urine WBC 25-50 /hpf (0-5) H 10/01/16 09:30 Ur Epithelial Cells OCCASIONAL /lpf (FEW) 10/01/16 09:30 Urine Bacteria FEW /hpf (NONE SEEN) 10/01/16 09:30 Amikacin Peak 23.1 ug/mL (20.0-30.0) 10/13/16 17:32 Amikacin Trough 4.0 ug/mL (1.0-8.0) 10/13/16 15:37 Vancomycin Trough 20.4 ug/mL (10-20) H 09/23/16 16:20 Digoxin 2.3 ng/ml (0.8-2.0) H 09/29/16 07:55 Blood Type O POSITIVE 10/06/16 09:45 Antibody Screen NEGATIVE 10/06/16 09:45 Crossmatch See Detail 10/06/16 09:45 - Physical Exam Vitals and I&O: Vital Signs Temp 98.2 F 10/15/16 08:00 Pulse 92 10/15/16 15:25 Resp 20 03/15/17 15:25 BP 132/82 10/15/16 08:00 Pulse Ox 99 10/15/16 15:25 Intake & Output 10/14/16 10/15/16 10/15/16 18:59 06:59 18:59 Intake Total 851.2 690 Output Total 850 950 Balance 1.2 -260 Intake: Intake, IV Amount 201.2 Amikacin 300 mg In 101.2 Dextrose 5% 100 ml @ 200 mls/hr IV Q24H [facility] Rx#: [id number] Fluconazole 200mg/100mL 100 200 mg In 100 ml @ 100 mls/hr IV Q24HR [facility] Rx#: [id number] Oral 0 Tube Feeding 470 440 Other 180 250 Output: Urine 650 800 Stool 200 150 Other: Stool Characteristics Soft Liquid Liquid Brown Brown Brown Active Medications: Current Medications Acetaminophen (Tylenol 650mg/20.3ml Suspension) 650 mg GT Q4H PRN PRN Reason: MILD PAIN AND FEVER >101 Stop: 11/20/16 12:41 Last Admin: 10/15/16 14:04 Dose: 650 mg Acetylcysteine (Mucomyst 20%) 3 ml HHN Q4HR [facility] Stop: 11/24/16 15:59 Last Admin: 10/15/16 15:24 Dose: 3 ml Albuterol Sulfate (Albuterol 2.5mg/3ml Neb Ud) 2.5 mg HHN Q4HRT [facility] Stop: 11/25/16 10:59 Last Admin: 10/15/16 15:24 Dose: 2.5 mg Atorvastatin Calcium (Lipitor) 40 mg PO HS [facility] Stop: 12/07/16 20:59 Last Admin: 10/14/16 21:58 Dose: 40 mg Dextrose (D50w) 50 ml IVP PRN PRN PRN Reason: blood sugar < 60 Stop: 11/25/16 21:35 Last Admin: 10/13/16 00:33 Dose: 50 ml Diltiazem HCl (Cardizem) 20 mg IVP Q4H PRN PRN Reason: HR Greater than 130 per min Stop: 11/20/16 12:45 Last Admin: 09/28/16 08:05 Dose: 20 mg Fluconazole (Diflucan) 100 mg PO DAILY [facility] Stop: 10/23/16 08:59 Folic Acid (Folate) 1 mg GT DAILY [facility] Stop: 11/21/16 08:59 Last Admin: 10/15/16 08:37 Dose: 1 mg Guaifenesin (Robitussin) 200 mg GT Q4HR PRN PRN Reason: Cough or Congestion Stop: 11/20/16 12:41 Last Admin: 10/07/16 12:59 Dose: 200 mg Amikacin Sulfate 300 mg/ (Dextrose) 101.2 mls @ 200 mls/hr IV Q24H [facility] Stop: 12/14/16 13:59 Last Admin: 10/15/16 14:26 Dose: 200 mls/hr Insulin Aspart (Novolog) 0 units SUBQ Q6HR [facility] PRN Reason: Protocol Stop: 12/09/16 17:59 Last Admin: 10/15/16 12:20 Dose: 2 units Insulin Human NPH (Novolin N) 30 units SUBQ BIDAC [facility] PRN Reason: Protocol Stop: 12/07/16 16:29 Last Admin: 10/15/16 07:42 Dose: 30 units Ipratropium Secor (Atrovent Neb 0.5mg/2.5ml) 0.5 mg HHN Q4HRT [facility] Stop: 11/25/16 10:59 Last Admin: 10/15/16 15:24 Dose: 0.5 mg Lactobacillus Rhamnosus (Culturelle) 1 each PO DAILY [facility] Stop: 11/24/16 08:59 Last Admin: 10/15/16 08:44 Dose: 1 each Lactulose (Cephulac) 20 gm GT DAILY [facility] Stop: 11/27/16 08:59 Last Admin: 10/15/16 08:43 Dose: 20 gm Loperamide HCl (Imodium) 2 mg GT Q4H PRN PRN Reason: DIARRHEA Stop: 11/20/16 15:12 Magnesium Hydroxide (Milk Of Magnesia) 30 ml GT DAILY PRN PRN Reason: Constipation Stop: 11/20/16 12:41 Metoclopramide HCl (Reglan) 5 mg PO TID [facility] Stop: 12/14/16 20:59 Miscellaneous (Probiotic Screen) 1 ea MC PRN PRN PRN Reason: PROTOCOL Stop: 11/24/16 08:48 Miscellaneous (Clinical Monitoring) 1 ea MC PRN PRN PRN Reason: XARELTO Stop: 11/28/16 11:19 Nystatin (Nystop) 100,000 units TP BID [facility] Stop: 11/21/16 08:59 Last Admin: 10/14/16 16:26 Dose: 100,000 units Ondansetron HCl (Zofran) 4 mg IV Q8H PRN PRN Reason: Nausea / Vomiting Stop: 11/20/16 12:45 Rivaroxaban (Xarelto) 10 mg GT DAILY [facility] Stop: 11/21/16 10:59 Last Admin: 10/15/16 08:41 Dose: 10 mg Vitamin A (Vitamin A & D) 5 gm TP DAILY [facility] Stop: 11/21/16 14:59 Last Admin: 10/15/16 10:00 Dose: 5 gm Zinc Sulfate (Zinc Sulfate) 220 mg GT DAILY [facility] Stop: 11/21/16 08:59 Last Admin: 10/15/16 08:40 Dose: 220 mg General: alert HEENT: NC/AT, PERRLA Neck: Supple Lungs: CTAB Cardiovascular: RRR, Normal S1, Normal S2, without murmur Abdomen: soft non-tender, non-distended, positive bowel sound Neurological: no change - Procedures Procedures: Procedures Procedure Code Date BLOOD TRANSFUSION SERVICE 48209 03/06/16 BYPASS DESCENDING COLON TO CUTANEOUS, OPEN APPROACH [id number] 09/21/16 CHANGE FEEDING DEVICE IN UP INTEST TRACT, JAIL KEEPER APPROACH [id number] 09/21/16 CHANGE GASTROSTOMY TUBE 50905 09/21/16 COLOSTOMY 97519 09/21/16 AGNIESZKA BONE 20 SQ CM/< 91322 01/28/15 DIAGNOSTIC COLONOSCOPY 68193 03/06/16 EGD BIOPSY SINGLE/MULTIPLE 75936 03/06/16 EXCISION OF DUODENUM, ENDO, DIAGN [id number] 03/06/16 EXCISION OF SACRUM, OPEN APPROACH [id number] 09/21/16 EXCISION OF STOMACH, ENDO, DIAGN [id number] 03/06/16 IMMOBILIZ/WOUND ATTN NEC 93.59 01/28/15 INSERT INDWELLING CATH 57.94 10/18/05 INSERT TEMP BLADDER CATH 64035 10/18/05 INSPECTION OF LOWER INTESTINAL TRACT, ENDO [id number] 03/06/16 INSPECTION OF UPPER INTESTINAL TRACT, ENDO [id number] 10/27/15 LOC EXC BONE LESION NEC 77.69 01/28/15 PACKED CELL TRANSFUSION 99.04 10/20/14 REMOVAL OF PRESSURE SORE 09328 09/21/16 REPLACE GASTROSTOMY TUBE 97.02 06/09/14 RESPIRATORY VENTILATION, LESS THAN 24 CONSECUTIVE HOURS [id number] 09/21/16 TRANSFUSE NONAUT RED BLOOD CELLS IN PERIPH VEIN, PERC [id number] 06/16/16 VENT MGMT INPAT INIT DAY 18070 09/21/16 Internal Medicine Assmt/Plan - Assessment Assessment: sepsis shock pmn acute on crf anemia leukocytosis hypoglycemia hypernatremia mr cp elevated ammonia ESBL URINE MRSA NARES - Plan Plan: discharge planning in progress monitor for any respiratory distress free h20 f/u labs in am ivabx bronchodilators wound care Nutritional Asmnt/Malnutr-PDOC - Dietary Evaluation Malnutrition Findings (Please click <Entered> for more info): Nutritional Asmnt/Malnutrition Start: 09/22/16 12: 31 Text: Status: Complete Freq: Document 09/22/16 12:32 GSUN (Rec: 09/22/16 13:00 GSUN [email or web address]) Nutritional Asmnt/Malnutrition Patient General Information Nutritional Screening High Risk Screening Diagnosis Per ER: sepsis, UTI, HTN, possible PNA, elevated troponin Pertinent Medical Hx/Surgical Hx Per ER: HTN, DM, dyslipidemia, anemia, 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 RD consult for decubitus ulcer and trigger for BG >180. Discussed with RN regarding tube feeding regimens when tube feeding resumed. Unable to obtain new weight due to bedscale not properly calibrated. Current Diet Order/ Nutrition Support NPO Pertinent Medications Vitamin C, lipitor, D5, folate , novolog, novolin, cephulac, MOM, zofran, vancomycin, vitamin A and D, zinc sulfate Pertinent Labs 09/21: BUN 112H, creatinine 1. 6H, glucose 263H, A1c 6.5H, troponin 1.96H 09/22: Potassium 2.8L, BUN 74H (improving), creatinine 1.1 ( improved), glucose 278H POC glucose 58-303H Nutritional Hx/Data Height 4 ft 9 in Height (Calculated Centimeters) 144.8 Current Weight (lbs) 97 lb Weight (Calculated Kilograms) 44.0 Weight (Calculated Grams) 12710.5 Weight Status Approriate GI Symptoms Food Allergies No Cultural/Ethnic/[place] Belief Unknown. Usual diet at home [facility]: glucerna 1.2 at 60ml/hr x 20hrs with 200ml flush Q4hrs Skin Integrity/Comment: property assessment monitor: ulceration sacrum, right tow, right foot, left foot Estimated Nutritional Goals BEE in Kcals: Using Current wt Calories/Kcals/Kg 30-35kcal/kg Kcals Calculated 1320-1544kcal Protein: Using Current wt Protein g/k.5-1.7g/kg Protein Calculated 66-75g Fluid: ml 1320-1544ml (1ml/kcal) Nutritional Problem 2. Problem Problem Altered nutrition related laboratory values related to Etiology DM aeb Signs/Symptoms: episodes of hypoglycemia and hyperglycemia, 58L and 303H 1. Problem Problem Increased protein and kcal needs related to Etiology hypermetabolic state aeb Signs/Symptoms: sepsis, possible PNA, mulitple ulcerations Intervention/Recommendation Comments 1. Recommend Diabetisource 50ml/hr x 24hrs, providing 1440kcal and 72g protein, for glycemic control and to better meet nutritional needs. 2. Recommend 1 packet Arginaid BID via g-tube for multiple ulcerations wound healing. 3. If episodes of hypoglycemia persists, consider without carbohydrate restriction with Fibersource HN at 50ml/hrs x 24hrs. Expected Outcomes/Goals Expected Outcomes/Goals 1. Pt to meet 100% of estimated nutritional needs on tube feeding + Arginaid with tolerance. Physician Parameters for PEM Serum Albumin (g/dl) 3.5 - 5.0 (Normal)
[2016-10-16] MEDS: Albuterol Nebulizer 2.5mg/3mL HHN SCH ×6 (03:06→22:02)
[2016-10-16] MEDS: Ipratropium Neb 0.5 mg/2.5 mL UD HHN SCH ×6 (03:06→22:02)
[2016-10-16 05:08] LABS: % BASOPHILS 0.5 % (0.0-2.0); % EOSINOPHILS 3.9 % (0.0-5.0); % LYMPHOCYTES 25.6 % (20.0-50.0); % MONOCYTES 7.6 % (2.0-10.0); % NEUTROPHILS 62.4 % (40.0-80.0); HEMATOCRIT 31.1 % (35.0-45.0); HEMOGLOBIN 10.5 gm/dL (11.7-15.5); MEAN CELL VOLUME 87.4 fl (81-100); MEAN CORPUSCULAR HEMOGLOBIN 29.5 pg (27.0-31.0); MEAN CORPUSCULAR HGB CONC 33.8 pg (28.0-36.0); MEAN PLATELET VOLUME 8.4 fl; NEUTROPHILE ABSOLUTE 4.2 Th/cmm (1.8-8.0); PLATELET COUNT 247 Th/cmm (150-400); RED BLOOD COUNT 3.56 Mil/cmm (3.80-5.10); RED CELL DISTRIBUTION WIDTH 14.6 % (11.5-20.0)
[2016-10-16 05:18] LABS: WHITE BLOOD COUNT 6.7 Th/cmm (4.8-10.8)
[2016-10-16 05:24] LABS: ANION GAP 7.6 (7.0-16.0); BUN - UREA NITROGEN 44 mg/dL (7-25); CALCIUM SERUM 11.1 mg/dL (8.6-10.3); CARBON DIOXIDE 33.3 mEq/L (21.0-31.0); CHLORIDE 106 mEq/L (98-107); CREATININE - SERUM 0.8 mg/dL (0.6-1.2); GLUCOSE 197 mg/dL (70-105); POTASSIUM SERUM 3.9 mEq/L (3.5-5.1); SODIUM SERUM 143 mEq/L (136-145)
[2016-10-16] MEDS: INSULIN HUMAN ISOPHANE (NPH) 100 UNITS/ML SUBQ SCH ×2 (07:02→16:52)
[2016-10-16] MEDS: Lactulose 10 Gm/15 mL 30mL UDC GT SCH (08:15)
[2016-10-16] MEDS: Lactobacillus Rhamnosus 10 Billion CFU Capsule PO SCH (08:15)
[2016-10-16] MEDS: Multivitamin w/ Minerals Tab GT SCH (08:16)
[2016-10-16] MEDS: Vitamin A/Vitamin D 5 gm Packet TP SCH (08:48)
[2016-10-16] MEDS: NYSTATIN 100000 UNITS/GM POWD TP SCH ×2 (08:49→18:32)
--- NOTE | 2016-10-16 10:21 | Diagnostic Imaging Report ---
Portable chest x-ray HISTORY: Shortness of breath Compared with prior exam of October 14, 2016, severe scoliosis and deformity of the chest. Patient is markedly rotated. There remains opacification of the left hemithorax associated with shift of the heart and mediastinum. Findings correspond with parenchymal changes in left lower hemithorax noted on a CT scan of October 13, 2016. Retrocardiac air density seen consistent with the CT documented large hiatal hernia. IMPRESSION: 1. No significant change in the cardiopulmonary status as noted above.
[2016-10-16] MEDS: INSULIN ASPART, RECOMBINANT 100 UNITS/ML SUBQ SCH ×3 (11:37→18:51)
--- NOTE | 2016-10-16 15:55 | Internal Medicine Prog Note ---
Internal Medicine Subjective - Subjective Patient seen and examined:: with staff, chart reviewed Patient is:: awake, non-verbal, non-interactive Patient Complaints of:: congestion Per staff patient is:: no adverse event, confused Internal Medicine Objective - Results Result Diagrams: 10/16/16 04:50 10/16/16 04:50 Recent Labs: Laboratory Last Values WBC 6.7 Th/cmm (4.8-10.8) D 10/16/16 04:50 RBC 3.56 Mil/cmm (3.80-5.10) L 10/16/16 04:50 Hgb 10.5 gm/dL (11.7-15.5) L 10/16/16 04:50 Hct 31.1 % (35.0-45.0) L 10/16/16 04:50 MCV 87.4 fl (81-100) 10/16/16 04:50 MCH 29.5 pg (27.0-31.0) 10/16/16 04:50 MCHC Differential 33.8 pg (28.0-36.0) 10/16/16 04:50 RDW 14.6 % (11.5-20.0) 10/16/16 04:50 Plt Count 247 Th/cmm (150-400) 10/16/16 04:50 MPV 8.4 fl 10/16/16 04:50 Neutrophils % 62.4 % (40.0-80.0) 10/16/16 04:50 Band Neutrophils % 6 % (0-10) 10/06/16 04:50 Lymphocytes % 25.6 % (20.0-50.0) 10/16/16 04:50 Monocytes % 7.6 % (2.0-10.0) 10/16/16 04:50 Eosinophils % 3.9 % (0.0-5.0) 10/16/16 04:50 Basophils % 0.5 % (0.0-2.0) 10/16/16 04:50 Neutrophils (Manual) 63 % (40-80) 10/06/16 04:50 Lymphocytes 15 % (20-50) L 10/06/16 04:50 Monocytes 9 % (2-10) 10/06/16 04:50 Eosinophils 6 % (0-5) H 10/06/16 04:50 Basophils 1 % (0-3) 10/06/16 04:50 Platelet Estimate DECREASED PLATELETS (NORMAL) 10/06/16 04:50 Platelet Morphology NORMAL (NORMAL) 10/06/16 04:50 Polychromasia 1+ 09/22/16 04:49 Anisocytosis 1+ 10/06/16 04:50 RBC Morph Micro Appear ABNORMAL (NORMAL) 10/06/16 04:50 PT 10.3 SECONDS (9.5-11.5) 10/03/16 04:45 INR 0.99 (0.5-1.4) 10/03/16 04:45 PTT (Actin FS) 26.3 SECONDS (26.0-38.0) 10/03/16 04:45 Specimen Source Arterial 10/08/16 13:40 Sample Site Left Radial 10/08/16 13:40 pH 7.43 (7.35-7.45) 10/08/16 13:40 pCO2 49.0 mmHg (35.0-45.0) H 10/08/16 13:40 pO2 154.0 mmHg (80.0-100.0) H 10/08/16 13:40 HCO3 32.5 mEq/L (20.0-26.0) H 10/08/16 13:40 Base Excess 7.0 mEq/L (-3.0-3.0) H 10/08/16 13:40 O2 Saturation 99.0 % (92.0-100.0) 10/08/16 13:40 Emmanuel Test YES 10/08/16 13:40 Vent Rate 12 10/08/16 13:40 Inspired O2 60 10/08/16 13:40 Tidal Volume NA 10/08/16 13:40 PEEP NA 10/08/16 13:40 Pressure (ins/psv/peep) NA 10/08/16 13:40 Critical Value E.MCARTHUR 10/08/16 13:40 Sodium 143 mEq/L (136-145) 10/16/16 04:50 Potassium 3.9 mEq/L (3.5-5.1) 10/16/16 04:50 Chloride 106 mEq/L (98-107) 10/16/16 04:50 Carbon Dioxide 33.3 mEq/L (21.0-31.0) H 10/16/16 04:50 Anion Gap 7.6 (7.0-16.0) 10/16/16 04:50 BUN 44 mg/dL (7-25) H 10/16/16 04:50 Creatinine 0.8 mg/dL (0.6-1.2) 10/16/16 04:50 Est GFR ( Amer) > 60.0 ml/min (>90) 10/16/16 04:50 Est GFR (Non-Af Amer) > 60.0 ml/min 10/16/16 04:50 BUN/Creatinine Ratio 55.0 10/16/16 04:50 Glucose 197 mg/dL (70-105) H 10/16/16 04:50 POC Glucose 182 MG/DL (70 - 105) H 10/16/16 11:20 Hemoglobin A1c % 6.5 % (4.0-6.0) H 09/21/16 09:13 Whole Bld Lactic Acid 0.96 mmol/L (0.60-2.00) 09/21/16 22:05 Calcium 11.1 mg/dL (8.6-10.3) H 10/16/16 04:50 Magnesium 2.0 mg/dL (1.9-2.7) 10/07/16 04:40 Total Bilirubin 0.3 mg/dL (0.3-1.0) 10/13/16 04:35 Direct Bilirubin 0.07 mg/dL (0.0-0.2) 09/27/16 04:56 AST 20 U/L (13-39) 10/13/16 04:35 ALT 17 U/L (7-52) 10/13/16 04:35 Alkaline Phosphatase 115 U/L (34-104) H 10/13/16 04:35 Ammonia 52 umol/L (16-53) 10/03/16 04:45 Troponin I 0.79 ng/mL (0.01-0.05) H* D 09/21/16 22:05 B-Natriuretic Peptide 64.0 pg/mL (5.0-100.0) 10/03/16 04:45 Total Protein 7.2 gm/dL (6.0-8.3) 10/13/16 04:35 Albumin 2.9 gm/dL (3.7-5.3) L 10/13/16 04:35 Globulin 4.3 gm/dL 10/13/16 04:35 Albumin/Globulin Ratio 0.7 (1.0-1.8) L 10/13/16 04:35 Urine Source CATH 10/01/16 09:30 Urine Color YELLOW 10/01/16 09:30 Urine Clarity SL. CLOUDY (CLEAR) 10/01/16 09:30 Urine pH 7.5 10/01/16 09:30 Ur Specific [place] 1.020 (1.005-1.030) 10/01/16 09:30 Urine Protein 100 mg/dL (NEGATIVE) H 10/01/16 09:30 Urine Glucose (UA) NEGATIVE mg/dL (NEGATIVE) 10/01/16 09:30 Urine Ketones NEGATIVE mg/dL (NEGATIVE) 10/01/16 09:30 Urine Blood SMALL (NEGATIVE) H 10/01/16 09:30 Urine Nitrate NEGATIVE (NEGATIVE) 10/01/16 09:30 Urine Bilirubin NEGATIVE (NEGATIVE) 10/01/16 09:30 Urine Urobilinogen 0.2 E.U./dL (0.2 - 1.0) 10/01/16 09:30 Ur Leukocyte Esterase SMALL (NEGATIVE) H 10/01/16 09:30 Urine RBC 5-10 /hpf (0-5) H 10/01/16 09:30 Urine WBC 25-50 /hpf (0-5) H 10/01/16 09:30 Ur Epithelial Cells OCCASIONAL /lpf (FEW) 10/01/16 09:30 Urine Bacteria FEW /hpf (NONE SEEN) 10/01/16 09:30 Amikacin Peak 23.1 ug/mL (20.0-30.0) 10/13/16 17:32 Amikacin Trough 4.0 ug/mL (1.0-8.0) 10/13/16 15:37 Vancomycin Trough 20.4 ug/mL (10-20) H 09/23/16 16:20 Digoxin 2.3 ng/ml (0.8-2.0) H 09/29/16 07:55 Blood Type O POSITIVE 10/06/16 09:45 Antibody Screen NEGATIVE 10/06/16 09:45 Crossmatch See Detail 10/06/16 09:45 - Physical Exam Vitals and I&O: Vital Signs Temp 98.3 F 10/16/16 12:00 Pulse 109 10/16/16 12:00 Resp 21 10/16/16 12:00 BP 131/71 10/16/16 12:00 Pulse Ox 100 10/16/16 11:27 Intake & Output 10/15/16 10/16/16 10/16/16 18:59 06:59 18:59 Intake Total 901.2 840 Output Total 800 1850 Balance 101.2 -1010 Weight (lbs) 54.068 kg Intake: Intake, IV Amount 101.2 Amikacin 300 mg In 101.2 Dextrose 5% 100 ml @ 200 mls/hr IV Q24H [facility] Rx#: [id number] Oral 0 Tube Feeding 800 540 Other 300 Output: Urine 800 1600 Stool 250 Other: Stool Characteristics Liquid Liquid Liquid Brown Brown Brown Active Medications: Current Medications Acetaminophen (Tylenol 650mg/20.3ml Suspension) 650 mg GT Q4H PRN PRN Reason: MILD PAIN AND FEVER >101 Stop: 11/20/16 12:41 Last Admin: 10/15/16 14:04 Dose: 650 mg Acetylcysteine (Mucomyst 20%) 3 ml HHN Q4HR [facility] Stop: 11/24/16 15:59 Last Admin: 10/16/16 11:19 Dose: 3 ml Albuterol Sulfate (Albuterol 2.5mg/3ml Neb Ud) 2.5 mg HHN Q4HRT [facility] Stop: 11/25/16 10:59 Last Admin: 10/16/16 11:19 Dose: 2.5 mg Atorvastatin Calcium (Lipitor) 40 mg PO HS [facility] Stop: 12/07/16 20:59 Last Admin: 10/15/16 21:27 Dose: 40 mg Dextrose (D50w) 50 ml IVP PRN PRN PRN Reason: blood sugar < 60 Stop: 11/25/16 21:35 Last Admin: 10/13/16 00:33 Dose: 50 ml Diltiazem HCl (Cardizem) 20 mg IVP Q4H PRN PRN Reason: HR Greater than 130 per min Stop: 11/20/16 12:45 Last Admin: 09/28/16 08:05 Dose: 20 mg Fluconazole (Diflucan) 100 mg PO DAILY [facility] Stop: 10/23/16 08:59 Last Admin: 10/16/16 08:16 Dose: 100 mg Folic Acid (Folate) 1 mg GT DAILY [facility] Stop: 11/21/16 08:59 Last Admin: 10/16/16 08:16 Dose: 1 mg Guaifenesin (Robitussin) 200 mg GT Q4HR PRN PRN Reason: Cough or Congestion Stop: 11/20/16 12:41 Last Admin: 10/07/16 12:59 Dose: 200 mg Amikacin Sulfate 300 mg/ (Dextrose) 101.2 mls @ 200 mls/hr IV Q24H [facility] Stop: 12/14/16 13:59 Last Admin: 10/16/16 14:45 Dose: 200 mls/hr Insulin Aspart (Novolog) 0 units SUBQ Q6HR [facility] PRN Reason: Protocol Stop: 12/09/16 17:59 Last Admin: 10/16/16 11:37 Dose: Not Given Insulin Human NPH (Novolin N) 30 units SUBQ BIDAC [facility] PRN Reason: Protocol Stop: 12/07/16 16:29 Last Admin: 10/16/16 07:02 Dose: 30 unit Ipratropium Alpha (Atrovent Neb 0.5mg/2.5ml) 0.5 mg HHN Q4HRT [facility] Stop: 11/25/16 10:59 Last Admin: 10/16/16 11:19 Dose: 0.5 mg Lactobacillus Rhamnosus (Culturelle) 1 each PO DAILY [facility] Stop: 11/24/16 08:59 Last Admin: 10/16/16 08:15 Dose: 1 each Lactulose (Cephulac) 20 gm GT DAILY [facility] Stop: 11/27/16 08:59 Last Admin: 10/16/16 08:15 Dose: 20 gm Loperamide HCl (Imodium) 2 mg GT Q4H PRN PRN Reason: DIARRHEA Stop: 11/20/16 15:12 Magnesium Hydroxide (Milk Of Magnesia) 30 ml GT DAILY PRN PRN Reason: Constipation Stop: 11/20/16 12:41 Metoclopramide HCl (Reglan) 5 mg PO TID [facility] Stop: 12/14/16 20:59 Last Admin: 10/16/16 14:42 Dose: 5 mg Miscellaneous (Probiotic Screen) 1 ea MC PRN PRN PRN Reason: PROTOCOL Stop: 11/24/16 08:48 Miscellaneous (Clinical Monitoring) 1 ea PRN PRN PRN Reason: XARELTO Stop: 11/28/16 11:19 Nystatin (Nystop) 100,000 units TP BID [facility] Stop: 11/21/16 08:59 Last Admin: 10/16/16 08:49 Dose: 100,000 units Ondansetron HCl (Zofran) 4 mg IV Q8H PRN PRN Reason: Nausea / Vomiting Stop: 11/20/16 12:45 Rivaroxaban (Xarelto) 10 mg GT DAILY [facility] Stop: 11/21/16 10:59 Last Admin: 10/16/16 08:16 Dose: 10 mg Vitamin A (Vitamin A & D) 5 gm TP DAILY [facility] Stop: 11/21/16 14:59 Last Admin: 10/16/16 08:48 Dose: 5 gm Zinc Sulfate (Zinc Sulfate) 220 mg GT DAILY [facility] Stop: 11/21/16 08:59 Last Admin: 10/16/16 08:15 Dose: 220 mg General: demented HEENT: NC/AT, PERRLA, other (timmy temporal wasting) Neck: Supple Lungs: congested, rales Cardiovascular: RRR, Normal S1, Normal S2 Abdomen: soft non-tender, globular, +GT Extremities: excoriation, contracture Neurological: no change, unable to follow command - Procedures Procedures: Procedures Procedure Code Date BLOOD TRANSFUSION SERVICE 34428 03/06/16 BYPASS DESCENDING COLON TO CUTANEOUS, OPEN APPROACH [id number] 09/21/16 CHANGE FEEDING DEVICE IN UP INTEST TRACT, WATER ENGINEER APPROACH [id number] 09/21/16 CHANGE GASTROSTOMY TUBE 97358 09/21/16 COLOSTOMY 49089 09/21/16 AGNIESZKA BONE 20 SQ CM/< 19887 01/28/15 DIAGNOSTIC COLONOSCOPY 97957 03/06/16 EGD BIOPSY SINGLE/MULTIPLE 78989 03/06/16 EXCISION OF DUODENUM, ENDO, DIAGN [id number] 03/06/16 EXCISION OF SACRUM, OPEN APPROACH [id number] 09/21/16 EXCISION OF STOMACH, ENDO, DIAGN [id number] 03/06/16 IMMOBILIZ/WOUND ATTN NEC 93.59 01/28/15 INSERT INDWELLING CATH 57.94 10/18/05 INSERT TEMP BLADDER CATH 00538 10/18/05 INSPECTION OF LOWER INTESTINAL TRACT, ENDO [id number] 03/06/16 INSPECTION OF UPPER INTESTINAL TRACT, ENDO [id number] 10/27/15 LOC EXC BONE LESION NEC 77.69 01/28/15 PACKED CELL TRANSFUSION 99.04 10/20/14 REMOVAL OF PRESSURE SORE 34481 09/21/16 REPLACE GASTROSTOMY TUBE 97.02 06/09/14 RESPIRATORY VENTILATION, LESS THAN 24 CONSECUTIVE HOURS [id number] 09/21/16 TRANSFUSE NONAUT RED BLOOD CELLS IN PERIPH VEIN, PERC 38156W1 06/16/16 VENT MGMT INPAT INIT DAY 78287 09/21/16 Internal Medicine Assmt/Plan - Assessment Assessment: sepsis shock sp levophed pmn acute on crf anemia leukocytosis hypoglycemia mr cp elevated ammonia rue edema, ephysema poor iv access ducub ulcer 4 sp colostomy - Plan Plan: vent weaning cont on iv abx, will hold all routine insulin cont on levophed prn critical poor access, will order midline ddw rn see order seen by dr martínez will check us, ct noted Nutritional Asmnt/Malnutr-PDOC - Dietary Evaluation Malnutrition Findings (Please click <Entered> for more info): Nutritional Asmnt/Malnutrition Start: 09/22/16 12: 31 Text: Status: Complete Freq: Document 09/22/16 12:32 GSUN (Rec: 09/22/16 13:00 GSUN [email or web address]) Nutritional Asmnt/Malnutrition Patient General Information Nutritional Screening High Risk Screening Diagnosis Per ER: sepsis, UTI, HTN, possible PNA, elevated troponin Pertinent Medical Hx/Surgical Hx Per ER: HTN, DM, dyslipidemia, anemia, 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 RD consult for decubitus ulcer and trigger for BG >180. Discussed with RN regarding tube feeding regimens when tube feeding resumed. Unable to obtain new weight due to bedscale not properly calibrated. Current Diet Order/ Nutrition Support NPO Pertinent Medications Vitamin C, lipitor, D5, folate , novolog, novolin, cephulac, MOM, zofran, vancomycin, vitamin A and D, zinc sulfate Pertinent Labs 09/21: BUN 112H, creatinine 1. 6H, glucose 263H, A1c 6.5H, troponin 1.96H 09/22: Potassium 2.8L, BUN 74H (improving), creatinine 1.1 ( improved), glucose 278H POC glucose 58-303H Nutritional Hx/Data Height 1.45 m Height (Calculated Centimeters) 144.8 Current Weight (lbs) 43.998 kg Weight (Calculated Kilograms) 44.0 Weight (Calculated Grams) 70921.5 Weight Status Approriate GI Symptoms Food Allergies No Cultural/Ethnic/Adventism Belief Unknown. Usual diet at home [facility]: glucerna 1.2 at 60ml/hr x 20hrs with 200ml flush Q4hrs Skin Integrity/Comment: pull worker: ulceration sacrum, right tow, right foot, left foot Estimated Nutritional Goals BEE in Kcals: Using Current wt Calories/Kcals/Kg 30-35kcal/kg Kcals Calculated 1320-1544kcal Protein: Using Current wt Protein g/k.5-1.7g/kg Protein Calculated 66-75g Fluid: ml 1320-1544ml (1ml/kcal) Nutritional Problem 2. Problem Problem Altered nutrition related laboratory values related to Etiology DM aeb Signs/Symptoms: episodes of hypoglycemia and hyperglycemia, 58L and 303H 1. Problem Problem Increased protein and kcal needs related to Etiology hypermetabolic state aeb Signs/Symptoms: sepsis, possible PNA, mulitple ulcerations Intervention/Recommendation Comments 1. Recommend Diabetisource 50ml/hr x 24hrs, providing 1440kcal and 72g protein, for glycemic control and to better meet nutritional needs. 2. Recommend 1 packet Arginaid BID via g-tube for multiple ulcerations wound healing. 3. If episodes of hypoglycemia persists, consider without carbohydrate restriction with Fibersource HN at 50ml/hrs x 24hrs. Expected Outcomes/Goals Expected Outcomes/Goals 1. Pt to meet 100% of estimated nutritional needs on tube feeding + Arginaid with tolerance. Physician Parameters for PEM Serum Albumin (g/dl) 3.5 - 5.0 (Normal)
[2016-10-17] MEDS: Albuterol Nebulizer 2.5mg/3mL HHN SCH ×2 (02:41→07:18)
[2016-10-17] MEDS: Ipratropium Neb 0.5 mg/2.5 mL UD HHN SCH ×2 (02:41→07:18)
[2016-10-17] MEDS: INSULIN ASPART, RECOMBINANT 100 UNITS/ML SUBQ SCH ×2 (06:19)
[2016-10-17] MEDS: INSULIN HUMAN ISOPHANE (NPH) 100 UNITS/ML SUBQ SCH (07:08)
[2016-10-17] MEDS: Multivitamin w/ Minerals Tab GT SCH (08:10)
[2016-10-17] MEDS: Lactobacillus Rhamnosus 10 Billion CFU Capsule PO SCH (08:12)
[2016-10-17] MEDS: Lactulose 10 Gm/15 mL 30mL UDC GT SCH (08:12)
--- NOTE | 2016-10-17 21:47 | Discharge Summary ---
CHIEF COMPLAINT: Elevated heart rate and respiratory distress. FINAL DIAGNOSES: Severe sepsis status post shock, pneumonia, acute on chronic renal failure, urinary tract infection, anemia, leukocytosis, hyperglycemia, mental retardation, cerebral palsy, elevated ammonia level, diabetes, poor IV excess, decubitus ulcers status post colostomy. HISTORY: This is a 56-year-old female with history of mental retardation, cerebral palsy, diabetes, hypertension, who was admitted from nursing facility secondary to the respiratory distress. The patient was noted to have low blood pressure as well. The patient was evaluated in the ER with elevated white count and with findings consistent with UTI and pneumonia. The patient's troponin was also elevated. The patient was admitted to ICU. PHYSICAL EXAMINATION: VITAL SIGNS: Blood pressure 128/86, respiration 20, temperature 98.3, and pulse 94. GENERAL: Elderly female, appears chronically ill. NECK: Supple. LUNGS: Equal breath sounds. A few rhonchi. HEART: Regular rate and rhythm without appreciable murmurs. ABDOMEN: Soft and nontender. EXTREMITIES: No clubbing or cyanosis. Positive for contracture. ____ colostomy ____ positive for decubitus ulcers. NEURO: Limited, moving all four extremities. HOSPITAL COURSE: The patient was admitted to ICU. The patient was started on multiple IV antibiotics. The patient was with Dr. Jha for Pulmonary. Dr. Rivera saw the patient for I and D of the ulcer. The patient had a colostomy placed as well secondary to severity of the wound. Dr. Mcknight also saw the patient for GI secondary to malfunctioning G-tube that was replaced. The patient had a complicated hospitalization and was able to be stabilized and cleared for discharge. CONDITION ON DISCHARGE: Fair. OVERALL PROGNOSIS: Poor. DISCHARGE INSTRUCTIONS: The patient is to continue on current medical regimen. The patient will be discharged to [place] for further care and treatment. JOB# [id number]
== END 2016-10-17 11:30 | DRG 853 ==
LOC: ER 08:25 → ICU 11:00
PROVIDERS: ADMIT Internal Medicine; ATTEND Internal Medicine
PROC: 0QB10ZZ Excision of Sacrum, Open Approach (ICD-10-PCS; principal; 2016-10-04)
PROC: 5A1945Z Respiratory Ventilation, 24-96 Consecutive Hours (ICD-10-PCS; 2016-10-04)
PROC: 0D1M0Z4 Bypass Descending Colon to Cutaneous, Open Approach (ICD-10-PCS; 2016-10-04)
PROC: 0DBM0ZZ Excision of Descending Colon, Open Approach (ICD-10-PCS; 2016-10-04)
PROC: 02HV33Z Insertion of Infusion Device into Superior Vena Cava, Percutaneous Approach (ICD-10-PCS; 2016-10-04)
PROC: 30233N1 Transfusion of Nonautologous Red Blood Cells into Peripheral Vein, Percutaneous Approach (ICD-10-PCS; 2016-10-06)
PROC: 0D20XUZ Change Feeding Device in Upper Intestinal Tract, External Approach (ICD-10-PCS; 2016-10-14)
DX: A41.9 Sepsis, unspecified organism (principal); J15.6 Pneumonia due to other Gram-negative bacteria; I21.4 Non-ST elevation (NSTEMI) myocardial infarction; R65.21 Severe sepsis with septic shock; I50.31 Acute diastolic (congestive) heart failure; N17.9 Acute kidney failure, unspecified; J43.9 Emphysema, unspecified; L89.154 Pressure ulcer of sacral region, stage 4; R13.10 Dysphagia, unspecified; K94.23 Gastrostomy malfunction; N39.0 Urinary tract infection, site not specified; I13.2 Hypertensive heart and chronic kidney disease with heart failure and with stage 5 chronic kidney disease, or end stage renal disease; J98.11 Atelectasis; E87.0 Hyperosmolality and hypernatremia; E11.22 Type 2 diabetes mellitus with diabetic chronic kidney disease; E78.5 Hyperlipidemia, unspecified; G80.9 Cerebral palsy, unspecified; F79 Unspecified intellectual disabilities; D50.9 Iron deficiency anemia, unspecified; F03.90 Unspecified dementia, unspecified severity, without behavioral disturbance, psychotic disturbance, mood disturbance, and anxiety; E78.00 Pure hypercholesterolemia, unspecified; R31.9 Hematuria, unspecified; N18.9 Chronic kidney disease, unspecified; E11.649 Type 2 diabetes mellitus with hypoglycemia without coma; B96.20 Unspecified Escherichia coli [E. coli] as the cause of diseases classified elsewhere; Y92.89 Other specified places as the place of occurrence of the external cause; E11.65 Type 2 diabetes mellitus with hyperglycemia; Z74.01 Bed confinement status; Z16.12 Extended spectrum beta lactamase (ESBL) resistance; Z79.4 Long term (current) use of insulin; Z88.8 Allergy status to other drugs, medicaments and biological substances; Z88.0 Allergy status to penicillin
CPT/HCPCS: 36415-UA; 36600-90; 71010-TC; 71250-TC; 80048-TC; 80053-TC; 80150-TC; 80162-TC; 80202-TC; 81001-TC; 82140-TC; 82247-TC; 82248-TC; 82803-TC; 82948-90; 83036-90; 83605; 83735-TC; 83880-TC; 84484-TC; 85007-TC; 85025-TC; 85027-TC; 85610-TC; 85730-TC; 86850-TC; 86900-TC; 86901-TC; 86922-TC; 87070; 87070-90; 87075-90; 87086-90; 87205-90; 88304-TC; 88305-90; 90779; 90782; 90799; 93005; 93931-RT-TC; 93971-TC-RT; 94002; 94640; 94660; 94667; 94668; 99201; C1751; J0278; J0692; J1160; J1170; J1450; J1650; J1815; J2185; J2250; J2543; J2704; J2760; J2765; J3370; J3475; J7030; J7040; J7070; J7613; J7799; P9016; Q9967; X6024; X6206; X6452; X7704; Z7610

== ENCOUNTER 2016-12-16 17:19 | Inpatient (IN) | payer MEDICARE, MEDICAID ==
[2016-12-16 17:35] VITALS: BP 96/41
--- NOTE | 2016-12-16 18:20 | ED Physician Chart ---
Chief Complaint/HPI - Patient Information Date Seen:: 12/16/16 Time Seen:: 17:30 Chief Complaint:: abnormal labs History of Present Illness:: this pt has a history of ESRD who had abnormal laboratory tests drawn today at her long term today; pt denies any s/s; Abnormal labs include a BUN: 110; K+ : 5.5; Na+: 130; Denies C/P, SOB, Abd. pain, A/N/V/D/C, fever, chills Allergies:: Allergies Allergy/AdvReac Type Severity Reaction Status Date / Time meperidine Allergy Verified 03/06/16 11:26 olopatadine Allergy Verified 09/21/16 08:30 Penicillins Allergy Verified 03/06/16 11:26 prochlorperazine Allergy Verified 03/06/16 11:27 risperidone Allergy Verified 03/06/16 11:27 Vitals:: Vital Signs - 8 hr 12/16/16 12/16/16 17:29 17:31 Temp 98.0 F HR 61 RR 16 BP 96/41 99/46 O2 Sat % 98 Historian:: Patient, EMS, Medical Records Review:: Nurse's Note Reviewed, Old Chart Reviewed, Transfer documents Reviewed Review of Systems - Review of Systems General/Constitutional: Fever, Chills, No weight loss, Weakness, No diaphoresis , No edema, No loss of appetite Skin: No skin lesions, No rash, No bruising Head: No headache, No light-headedness Eyes: No loss of vision, No pain, No diplopia ENT: No earache, No nasal drainage, No sore throat, No tinnitus Neck: No neck pain, No swelling, No thyromegaly, No stiffness, No mass noted Cardio Vascular: Chest pain, Palpitations, No PND, No orthopnea, No edema Pulmonary: SOB, Cough, No sputum, No wheezing GI: Nausea, Vomiting, Diarrhea, Pain, No melena, No hematochezia, Constipation, No hematemesis G/U: No dysuria, No frequency, No hematuria Musculoskeletal: No bone or joint pain, No back pain, No muscle pain Endocrine: No polyuria, No polydipsia Psychiatric: No prior psych history, No depression, No anxiety, No suicidal ideation Hematopoietic: No bruising, No lymphadenopathy Allergic/Immuno: No urticaria, No angioedema Neurological: No syncope, No focal symptoms, No weakness, No paresthesia, Headache, No seizure, No dizziness, Confusion, Vertigo Past Medical History - Past Medical History Past Medical History: HTN, DM, CAD, Dyslipidemia, ESRD, Arthritis, Dementia Family History: Heart disease, Diabetes Melitus, HTN Social History: Non Smoker, No Alcohol, No Drug Use, Single, Care Facility Surgical History: PEG/GTube Psychiatricy History: None Medication: Reviewed Family Medical History - Family Member Mother History Unknown: Yes Ethnicity: Unknown Living Status: Unknown Paternal History Unknown: Yes Ethnicity: Unknown Living Status: Unknown Hx Family Diabetes: Yes Physical Exam - Physical Examination General/Constitutional: Awake, Well-developed, well-nourished, Alert, No distress, GCS 15, Non-toxic appearing, Ambulatory Head: Atraumatic Eyes: Lids, conjuctiva normal, PERRL, EOMI Skin: Nl inspection, No rash, No skin lesions, No ecchymosis, Well hydrated, No lymphadenopathy Other Skin comments:: Decubitis Ulcers ENMT: External ears, nose nl, Nasal exam nl, Lips, teeth, gums nl Neck: Nontender, Full ROM w/o pain, No JVD, No nuchal rigidity, No bruit, No mass, No stridor Respiratory: Nl effort/Exclusion, Clear to Auscultation, No Wheeze/Rhonchi/Rales Cardio Vascular: RRR, No murmur, gallop, rubs, NL S1 S2 GI: No tenderness/rebounding/guarding, No organomegaly, No hernia, Normal BS's, Nondistended, No mass/bruits, No McBurney tenderness : No CVA tenderness Extremities: No tenderness or effusion, Full ROM, normal strength in all extremities, No edema, Normal digits & nails Neuro/Psych: Alert/oriented, DTR's symmetric, Normal sensory exam, Normal motor strength, Judgement/insight normal, Mood normal, Normal gait, No focal deficits Misc: normal gait, Normal back, No paraspinal tenderness Labs/Radiology/EKG Results - Lab Results Comments:: U/A: 20 to 50 WBCs; BUN: 119; Glucose: 197; Na+: 128; H?h: 8.8/26; Cr: 3.1 ED Septic Shock - . Is Septic Shock (SBP<90, OR Lactate>4 mmol\L) present?: No - <6hrs of presentation: Vital Signs: Vital Signs - 8 hr 12/16/16 12/16/16 17:29 17:31 Temp 98.0 F HR 61 RR 16 BP 96/41 99/46 O2 Sat % 98 Reassessment (Disposition) - Reassessment Reassessment Condition:: Improved - Diagnosis Diagnosis:: ESRD; Renal Failure; Anemia UTI; Urosepsis - Aftercare/Follow up Instructions Aftercare/Follow-Up Instructions:: Counseled pt regarding lab results/diagnosis & need follow up, Counseled pt & family regarding lab results/diagnosis & need follow up - Patient Disposition Discharge/Transfer:: Acute Care w/in this hosp Accepting Physician:: Dr. Sidhu Time Called:: 2044 Time Responded:: 20:45 Spoke to:: Dr. Sidhu Admitting Medical Physician:: Dr. Sidhu Admitting Psych Physician:: Dr. Sidhu Condition at Disposition:: Improved
[2016-12-16 18:54] LABS: INR 1.16 (0.5-1.4); PROTHROMBIN TIME (TEST) 12.2 SECONDS (9.5-11.5)
[2016-12-16 18:57] LABS: % BASOPHILS 0.3 % (0.0-2.0); % EOSINOPHILS 2.4 % (0.0-5.0); % LYMPHOCYTES 5.6 % (20.0-50.0); % MONOCYTES 11.6 % (2.0-10.0); % NEUTROPHILS 80.1 % (40.0-80.0); HEMOGLOBIN 8.8 gm/dL (11.7-15.5); MEAN CELL VOLUME 82.2 fl (81-100); MEAN CORPUSCULAR HGB CONC 34.1 pg (28.0-36.0); MEAN PLATELET VOLUME 10.3 fl; NEUTROPHILE ABSOLUTE 6.6 Th/cmm (1.8-8.0); RED BLOOD COUNT 3.13 Mil/cmm (3.80-5.10); RED CELL DISTRIBUTION WIDTH 16.9 % (11.5-20.0)
[2016-12-16 19:00] LABS: HEMATOCRIT 25.7 % (35.0-45.0); WHITE BLOOD COUNT 8.3 Th/cmm (4.8-10.8)
[2016-12-16 19:01] LABS: PLATELET COUNT 124 Th/cmm (150-400)
[2016-12-16 19:08] LABS: ALB/GLOB RATIO 0.7 (1.0-1.8); ANION GAP 11.4 (7.0-16.0); BILIRUBIN,TOTAL 0.4 mg/dL (0.3-1.0); BUN/CREATININE RATIO 38.4; CALCIUM SERUM 8.7 mg/dL (8.6-10.3); CARBON DIOXIDE 32.1 mEq/L (21.0-31.0); CREATININE - SERUM 3.1 mg/dL (0.6-1.2); POTASSIUM SERUM 3.5 mEq/L (3.5-5.1); TROP I 0.02 ng/mL (0.01-0.05)
[2016-12-16] MEDS ORDERED: Levofloxacin 500mg/100mL 500 MG/100 ML BAG IV ONE ×2 (20:38→21:32)
[2016-12-16 20:40] LABS: URINE BILIRUBIN NEGATIVE (NEGATIVE); URINE COLOR YELLOW; URINE GLUCOSE (UA) NEGATIVE (NEGATIVE); URINE KETONE NEGATIVE (NEGATIVE)
[2016-12-16 20:41] LABS: URINE BLOOD LARGE (NEGATIVE); URINE PROTEIN 100 mg/dL (NEGATIVE)
[2016-12-16 20:42] LABS: URINE RBC 25-50 /hpf (0-5); URINE WBC 25-50 /hpf (0-5)
[2016-12-16 20:43] LABS: URINE BACTERIA MODERATE /hpf (NONE SEEN); URINE EPITHELIAL CELLS MODERATE /lpf (FEW)
--- NOTE | 2016-12-16 21:57 | Admit Criteria Form ---
Admit Criteria Forms - Admit Criteria Diagnosis: RENAL FAILURE, CHRONIC Clinical Indications for Admission to Inpatient Care (Place 'X' for any and all applicable criteria): Admission is indicated for ANY ONE of the following (1)(2)(3)(4)(5): [X]I. Inpatient admission required rather than observation care (Use Renal Failure, Chronic: Observation Care Criteria as appropriate) because of ANY ONE of the following: [ ]a) Volume overload or uremic symptoms (eg, clinically significant pulmonary edema, hypertension, pericarditis, acidosis) too severe for, or not responsive (eg, for over 24 hours) to emergency department or observation care dialysis or treatment regimen (11) [X]b) Hemodynamic instability that is severe or persistent [ ]c) Respiratory distress that is severe or persistent (11) [ ]d) Clinically significant electrolyte abnormality that requires inpatient care (eg,hyperkalemia with severe ECG findings)[B] [ ]e) Supplement O2 or respiratory therapy for over 24hrs that is performable only in acute inpatient setting [ ]f) Continuous IV infusion of anticoagulation, platelet inhibitor, vasoactive, or Antiarrhythmic medication (15), [ ]g) Pulmonary artery catheter monitoring [ ]h) Temporary pacemaker placement [ ]i) Emergent pericardiocentesis [ ]j) Other condition, treatment or monitoring requiring inpatient admission [ ]II. Unexplained syncope [A] [ ]III. Recurrent seizures [ ]IV. Severe infections not treatable in outpatient setting (eg, peritonitis)(9 ) [ ]V. Cardiac arrhythmias of immediate concern [ ]. Encephalopathy [ ]VII.Bleeding abnormalities (eg, platelet dysfunction) with active (eg, gastrointestinal) bleeding Extended stay beyond goal length of stay may be needed for (3)(4)(35)(36): [ ]a) Continuing uremic complications [ ]b) Comorbidities or complications The original [employer] content created by [employer] has been revised. The portions of the content which have been revised are identified through the use of italic text or in bold, and [employer] has neither reviewed nor approved the modified material. All other unmodified content is copyright [employer]. Please see references footnoted in the original [employer] edition 2016
[2016-12-16] MEDS ORDERED: guaiFENesin 200 MG/10 ML UDC GT PRN (22:21)
[2016-12-16] MEDS ORDERED: Diltiazem 5 mg/mL 5mL Vial IVP PRN (22:21)
[2016-12-16] MEDS ORDERED: Dextrose 50% 50 mL Abboject IVP PRN (22:21)
[2016-12-16] MEDS ORDERED: Levofloxacin 500mg/100mL 500 MG/100 ML BAG IV SCH (22:30)
[2016-12-16] MEDS: Ipratropium Neb 0.5 mg/2.5 mL UD HHN SCH (23:00)
[2016-12-16] MEDS: Albuterol Nebulizer 2.5mg/3mL HHN SCH (23:00)
[2016-12-16] MEDS: D5-0.9%NS 1,000 ML IV SCH (23:07)
[2016-12-17] MEDS: Ipratropium Neb 0.5 mg/2.5 mL UD HHN SCH ×6 (02:35→22:59)
[2016-12-17] MEDS: Albuterol Nebulizer 2.5mg/3mL HHN SCH ×6 (02:35→22:59)
[2016-12-17 06:24] LABS: MEAN CELL VOLUME 81.8 fl (81-100); MEAN CORPUSCULAR HEMOGLOBIN 27.3 pg (27.0-31.0); MEAN CORPUSCULAR HGB CONC 33.4 pg (28.0-36.0); MEAN PLATELET VOLUME 9.5 fl; PLATELET COUNT 110 Th/cmm (150-400); RED BLOOD COUNT 2.64 Mil/cmm (3.80-5.10); RED CELL DISTRIBUTION WIDTH 17.6 % (11.5-20.0); WHITE BLOOD COUNT 7.9 Th/cmm (4.8-10.8)
[2016-12-17 06:31] LABS: HEMATOCRIT 21.6 % (35.0-45.0); HEMOGLOBIN 7.2 gm/dL (11.7-15.5)
[2016-12-17 06:41] LABS: ANION GAP 13.9 (7.0-16.0); CALCIUM SERUM 8.5 mg/dL (8.6-10.3); CARBON DIOXIDE 24.4 mEq/L (21.0-31.0); POTASSIUM SERUM 3.3 mEq/L (3.5-5.1)
[2016-12-17 07:36] LABS: TSH 2.11 uIU/ml (0.34-5.60)
[2016-12-17 07:55] LABS: BAND NEUTROPHILE 8 % (0-10); NEUTROPHILS 77 % (40-80); TOTAL CELLS COUNTED 100
[2016-12-17] MEDS: INSULIN ASPART, RECOMBINANT 100 UNITS/ML SUBQ SCH ×4 (07:55→20:57)
[2016-12-17 07:56] LABS: ANISOCYTOSIS 1+; PLATELET ESTIMATE DECREASED PLATELETS (NORMAL); PLATELET MORPHOLOGY NORMAL (NORMAL)
[2016-12-17] MEDS: INSULIN HUMAN ISOPHANE (NPH) 100 UNITS/ML SUBQ SCH ×2 (07:56→17:00)
[2016-12-17] MEDS ORDERED: Vitamin A/Vitamin D 5 gm Packet TP SCH (09:00)
[2016-12-17] MEDS: Lactulose 10 Gm/15 mL 30mL UDC GT SCH (09:35)
[2016-12-17] MEDS: NYSTATIN 100000 UNITS/GM POWD TP SCH ×2 (09:35→16:52)
[2016-12-17] MEDS: Zinc Oxide Ointment 60 gm TP SCH ×2 (09:35→20:58)
[2016-12-17] MEDS: Lactobacillus Rhamnosus 10 Billion CFU Capsule PO SCH (09:36)
[2016-12-17] MEDS: D5-0.9%NS 1,000 ML IV SCH ×2 (09:45→15:52)
[2016-12-17] MEDS: Vitamin A/Vitamin D 5 gm Packet TP SCH (09:47)
--- NOTE | 2016-12-17 10:46 | Diagnostic Imaging Report ---
Portable chest x-ray HISTORY: Pain Exam is limited due to marked patient rotation associated with a severe scoliosis of the thoracic spine convexity to the right. The overall heart size is difficult to exclude. Compared with a prior exam of October 16, 2016, a retrocardiac air density consistent with a large hiatal hernia is noted. No definite acute focal pulmonary parenchymal processes. IMPRESSION: 1. No definite acute focal pulmonary processes 2. Findings consistent with a relatively large retrocardiac hiatal hernia 3. Severe scoliosis
[2016-12-17] MEDS ORDERED: Potassium Chloride 40 MEQ, Lidocaine 1% 20mL Vial 25 MG in Sodium Chloride 0.9% 250 ML IV ONE (15:00)
--- NOTE | 2016-12-17 16:36 | Diagnostic Imaging Report ---
Renal ultrasound HISTORY: Abnormal renal function The right kidney measures 9.2 x 3.9 x 3.2 cm. There are several echogenic foci scattered within the kidney. The findings correspond to CT demonstrated calculi. No definite hydronephrosis. The left kidney is enlarged (14.3 x 6.0 x 5.3 cm). Multiple echogenic densities consistent with CT documented calculi noted. There is dilatation of the collecting system. The urinary bladder cannot be well evaluated due to lack of distention. IMPRESSION: 1. Findings consistent with previously CT documented bilateral renal calculi. Associated evidence of moderate hydronephrosis on the left side.
--- NOTE | 2016-12-17 20:28 | Consultation ---
DATE OF CONSULTATION: 12/16/2016 HISTORY OF PRESENT ILLNESS: This is a patient who is a resident of [facility] care facility, 56 years old female with underlying history of severe mental disability, was [facility] since she was noted to have abnormal lab studies. BUN of 110 and potassium 5.5 with the sodium of 130, slightly elevated blood sugar. Her blood pressure in the Emergency Room is 96/41 in a patient with known history of underlying history of hypertension. She has similar hospital admission here somewhere in June 2016 wherein her BUN was 179, creatinine of 4.8 as a result of severe degree of dehydration with the patient having a history at that time of vomiting for a period of 1 week and urinary tract infection. ER evaluation, consideration of possibility of septic shock, blood pressure of 90, lactic acid ____. The patient was subsequently admitted to the hospital. PAST MEDICAL HISTORY: Diabetes with multiple hospital admissions of this facility, autonomic dysfunction, history of GI bleeding in the past with presence of hiatal hernia, severe mental retardation and chronic kidney disease. REVIEW OF SYSTEMS: Could not be obtained. PHYSICAL EXAMINATION: VITAL SIGNS: Current is 102/73, pulse rate of 104, temperature is 97.3, O2 sat of 97. GENERAL: Restless and not interactive, ____ contracture of both upper and lower extremities. Presence of a G-tube, which is functional and is receiving G-tube feedings at the present time, IV of D5 normal saline at 125 mL per hour running at this time. EXTREMITIES: No edema. SKIN: Very poor turgor of the skin. LABORATORY DATA: The most recent one, in terms of lab studies, urinalysis, cloudy urine, pyuria, hematuria and bacteriuria . Hematology, 7900 white blood cell count, 7.2 hemoglobin and hematocrit of ____. Chemistry, the most recent 129 sodium, potassium 3.3, chloride 94, CO2 44, BUN of 117, creatinine of 3.0. Most recent glucose of this patient is 175, BNP of 102. TSH is 2.1. IMPRESSION: Significant degree of azotemia in this patient might be related to severe degree of dehydration. We will hydrate this patient at the rate of 125 mL per hour. Follow up electrolytes in this patient in a period of 24 hours. We will need blood cultures, urine cultures. I am aware that this patient is empirically treated with antibiotic in the form of Levaquin 500 mg q. 24 hours. We will reevaluate the antibiotic dose according to the degree of renal function. ____ her renal function does not improve, she will need only 250 on a daily basis. She might need wider coverage of antibiotics at the present time once we obtain cultures of this patient. [facility]# [id number]
[2016-12-18] MEDS: D5-0.9%NS 1,000 ML IV SCH ×2 (01:30→10:29)
[2016-12-18] MEDS: Albuterol Nebulizer 2.5mg/3mL HHN SCH ×6 (06:06→23:26)
[2016-12-18] MEDS: Ipratropium Neb 0.5 mg/2.5 mL UD HHN SCH ×6 (06:07→23:25)
[2016-12-18 06:38] LABS: MEAN CELL VOLUME 84.3 fl (81-100); MEAN CORPUSCULAR HEMOGLOBIN 27.1 pg (27.0-31.0); MEAN CORPUSCULAR HGB CONC 32.2 pg (28.0-36.0); MEAN PLATELET VOLUME 9.2 fl; PLATELET COUNT 101 Th/cmm (150-400); RED BLOOD COUNT 2.49 Mil/cmm (3.80-5.10); RED CELL DISTRIBUTION WIDTH 17.9 % (11.5-20.0)
[2016-12-18] MEDS: INSULIN ASPART, RECOMBINANT 100 UNITS/ML SUBQ SCH ×4 (06:43→20:48)
[2016-12-18 06:48] LABS: HEMOGLOBIN 6.8 gm/dL (11.7-15.5); WHITE BLOOD COUNT 4.9 Th/cmm (4.8-10.8)
[2016-12-18 07:03] LABS: ALB/GLOB RATIO 0.6 (1.0-1.8); ANION GAP 15.5 (7.0-16.0); BILIRUBIN,TOTAL 0.2 mg/dL (0.3-1.0); BUN/CREATININE RATIO 36.8; CALCIUM SERUM 8.1 mg/dL (8.6-10.3); CARBON DIOXIDE 25.4 mEq/L (21.0-31.0); CREATININE - SERUM 2.8 mg/dL (0.6-1.2); POTASSIUM SERUM 3.9 mEq/L (3.5-5.1)
[2016-12-18] MEDS: INSULIN HUMAN ISOPHANE (NPH) 100 UNITS/ML SUBQ SCH ×2 (07:16→17:46)
[2016-12-18] MEDS: Lactobacillus Rhamnosus 10 Billion CFU Capsule PO SCH (08:39)
[2016-12-18] MEDS: Vitamin A/Vitamin D 5 gm Packet TP SCH (08:39)
[2016-12-18] MEDS: Zinc Oxide Ointment 60 gm TP SCH ×2 (08:39→20:48)
[2016-12-18] MEDS: NYSTATIN 100000 UNITS/GM POWD TP SCH ×2 (08:39→17:44)
[2016-12-18] MEDS: Lactulose 10 Gm/15 mL 30mL UDC GT SCH (08:39)
[2016-12-18 08:41] LABS: ANISOCYTOSIS 1+; BAND NEUTROPHILE 8 % (0-10); EOSINOPHIL 1 % (0-5); NEUTROPHILS 63 % (40-80); PLATELET ESTIMATE DECREASED PLATELETS (NORMAL); PLATELET MORPHOLOGY GIANT PLATELETS SEEN (NORMAL); TOTAL CELLS COUNTED 100
--- NOTE | 2016-12-18 10:27 | History & Physical ---
ADMIT DATE: 12/16/2016 CHIEF COMPLAINT: Elevated BUN and creatinine and dehydration. HISTORY OF PRESENT ILLNESS: This is a 56 years old female with history of mental retardation, cerebral palsy, diabetes, was admitted from nursing facility secondary to BUN in excess of 100 and blood sugar in excess of 400. The patient was evaluated in the ER and admitted for further management. PAST MEDICAL HISTORY: As mentioned in history of present illness. PAST SURGICAL HISTORY: Status post PEG. ALLERGIES: DEMEROL, OLOPATADINE, PENICILLIN AND RISPERDAL. MEDICATIONS: Diflucan, insulin sliding scale, ____, Tylenol, Robitussin, folic acid, ____, Xarelto, zinc and guaifenesin. FAMILY HISTORY: Noncontributory. SOCIAL HISTORY: The patient lives in intermediate, requiring 24-hour nursing care. REVIEW OF SYSTEMS: This is limited secondary to patient's current mental status. We will try to obtain more detailed review of system at a later date by talking to family members, Christina Rankin, is her sister from [place], number [phone]. sorting livestock worker, Tali Sahni, number [phone]. Also, nursing staff at [place] [phone]. PHYSICAL EXAMINATION: VITAL SIGNS: Blood pressure 102/73, respirations 18, pulse 104, temperature 97.3. GENERAL: Elderly female, appears her stated age. NECK: Supple. No mass. LUNGS: Equal breath sounds, few rhonchi. HEART: Regular rate and rhythm without appreciable murmurs. ABDOMEN: Soft, nontender. EXTREMITIES: Positive excoriations. Positive decubitus ulceration in the buttocks area stage IV. NEUROLOGIC: Limited, moving 4 extremities. LABORATORY DATA: WBC 7.9, hemoglobin 7.3, platelets 110. Sodium 128, potassium 3.3, BUN was 74, creatinine 3.0, blood sugar 332. BNP 103. UA, 50 wbc. ASSESSMENT: Acute urinary tract infection, sepsis, acute renal failure, severe anemia, hyponatremia, hyperkalemia, diabetes, uncontrolled, mental retardation, hiatal hernia, status post PEG, decubitus ulceration. PLAN: We will continue the patient on aggressive hydration. Refer the patient to Renal consult has been ordered. We will hold up any nephrotoxic medications. We will continue to monitor the patient closely. OVERALL PROGNOSIS: Poor. [facility]# [id number]
--- NOTE | 2016-12-18 15:38 | Internal Medicine Prog Note ---
Internal Medicine Subjective - Subjective Patient seen and examined:: with staff, chart reviewed Patient is:: awake, verbal, interactive Patient Complaints of:: congestion, constipation Per staff patient is:: no adverse event, no episodes of fall, confused Internal Medicine Objective - Results Result Diagrams: 12/18/16 06:30 12/18/16 06:30 Recent Labs: Laboratory Last Values WBC 4.9 Th/cmm (4.8-10.8) D 12/18/16 06:30 RBC 2.49 Mil/cmm (3.80-5.10) L 12/18/16 06:30 Hgb 6.8 gm/dL (11.7-15.5) L* 12/18/16 06:30 Hct 21.0 % (35.0-45.0) L* 12/18/16 06:30 MCV 84.3 fl (81-100) 12/18/16 06:30 MCH 27.1 pg (27.0-31.0) 12/18/16 06:30 MCHC Differential 32.2 pg (28.0-36.0) 12/18/16 06:30 RDW 17.9 % (11.5-20.0) 12/18/16 06:30 Plt Count 101 Th/cmm (150-400) L 12/18/16 06:30 MPV 9.2 fl 12/18/16 06:30 Neutrophils % 80.1 % (40.0-80.0) H 12/16/16 18:10 Band Neutrophils % 8 % (0-10) 12/18/16 06:30 Lymphocytes % 5.6 % (20.0-50.0) L 12/16/16 18:10 Monocytes % 11.6 % (2.0-10.0) H 12/16/16 18:10 Eosinophils % 2.4 % (0.0-5.0) 12/16/16 18:10 Basophils % 0.3 % (0.0-2.0) 12/16/16 18:10 Neutrophils (Manual) 63 % (40-80) 12/18/16 06:30 Lymphocytes 9 % (20-50) L 12/18/16 06:30 Monocytes 19 % (2-10) H 12/18/16 06:30 Eosinophils 1 % (0-5) 12/18/16 06:30 Platelet Estimate DECREASED PLATELETS (NORMAL) 12/18/16 06:30 Platelet Morphology GIANT PLATELETS SEEN (NORMAL) 12/18/16 06:30 Anisocytosis 1+ 12/18/16 06:30 RBC Morph Micro Appear ABNORMAL (NORMAL) 12/18/16 06:30 PT 12.2 SECONDS (9.5-11.5) H 12/16/16 18:10 INR 1.16 (0.5-1.4) 12/16/16 18:10 Sodium 141 mEq/L (136-145) 12/18/16 06:30 Potassium 3.9 mEq/L (3.5-5.1) 12/18/16 06:30 Chloride 104 mEq/L (98-107) 12/18/16 06:30 Carbon Dioxide 25.4 mEq/L (21.0-31.0) 12/18/16 06:30 Anion Gap 15.5 (7.0-16.0) 12/18/16 06:30 BUN 103 mg/dL (7-25) H* 12/18/16 06:30 Creatinine 2.8 mg/dL (0.6-1.2) H 12/18/16 06:30 Est GFR ( Amer) 22.6 ml/min (>90) 12/18/16 06:30 Est GFR (Non-Af Amer) 18.6 ml/min 12/18/16 06:30 BUN/Creatinine Ratio 36.8 12/18/16 06:30 Glucose 432 mg/dL (70-105) H 12/18/16 06:30 POC Glucose 166 MG/DL (70 - 105) H 12/18/16 12:15 Hemoglobin A1c % 6.2 % (4.0-6.0) H 12/16/16 18:10 Calcium 8.1 mg/dL (8.6-10.3) L 12/18/16 06:30 Magnesium 3.0 mg/dL (1.9-2.7) H 12/18/16 06:30 Total Bilirubin 0.2 mg/dL (0.3-1.0) L 12/18/16 06:30 AST 13 U/L (13-39) 12/18/16 06:30 ALT 13 U/L (7-52) 12/18/16 06:30 Alkaline Phosphatase 155 U/L (34-104) H 12/18/16 06:30 Ammonia 40 umol/L (16-53) 12/18/16 06:30 Creatine Kinase 51 U/L (30-223) 12/16/16 18:10 Troponin I 0.02 ng/mL (0.01-0.05) 12/16/16 18:10 B-Natriuretic Peptide 224.0 pg/mL (5.0-100.0) H 12/18/16 06:30 Total Protein 5.5 gm/dL (6.0-8.3) L 12/18/16 06:30 Albumin 2.1 gm/dL (3.7-5.3) L 12/18/16 06:30 Globulin 3.4 gm/dL 12/18/16 06:30 Albumin/Globulin Ratio 0.6 (1.0-1.8) L 12/18/16 06:30 Triglycerides 584 mg/dL (<150) H 12/16/16 18:10 Cholesterol 83 mg/dL (<200) 12/16/16 18:10 LDL Cholesterol Direct 13 mg/dL (75-193) L 12/16/16 18:10 HDL Cholesterol 3 mg/dL (23-92) L 12/16/16 18:10 TSH 2.11 uIU/ml (0.34-5.60) 12/17/16 06:12 Urine Source [place] 12/16/16 17:41 Urine Color YELLOW 12/16/16 17:41 Urine Clarity CLOUDY (CLEAR) H 12/16/16 17:41 Urine pH 7.0 12/16/16 17:41 Ur Specific [place] 1.015 (1.005-1.030) 12/16/16 17:41 Urine Protein 100 mg/dL (NEGATIVE) H 12/16/16 17:41 Urine Glucose (UA) NEGATIVE mg/dL (NEGATIVE) 12/16/16 17:41 Urine Ketones NEGATIVE mg/dL (NEGATIVE) 12/16/16 17:41 Urine Blood LARGE (NEGATIVE) H 12/16/16 17:41 Urine Nitrate NEGATIVE (NEGATIVE) 12/16/16 17:41 Urine Bilirubin NEGATIVE (NEGATIVE) 12/16/16 17:41 Urine Urobilinogen 1.0 E.U./dL (0.2 - 1.0) 12/16/16 17:41 Ur Leukocyte Esterase LARGE (NEGATIVE) H 12/16/16 17:41 Urine RBC 25-50 /hpf (0-5) H 12/16/16 17:41 Urine WBC 25-50 /hpf (0-5) H 12/16/16 17:41 Ur Epithelial Cells MODERATE /lpf (FEW) 12/16/16 17:41 Urine Bacteria MODERATE /hpf (NONE SEEN) 12/16/16 17:41 - Physical Exam Vitals and I&O: Vital Signs Temp 98.3 F 12/18/16 12:00 Pulse 101 12/18/16 15:26 Resp 20 12/18/16 15:26 BP 101/51 12/18/16 12:00 Pulse Ox 96 12/18/16 15:26 Intake & Output 12/17/16 12/18/16 12/18/16 18:59 06:59 18:59 Intake Total 2080 1765 1000 Output Total 900 810 Balance 1918 853 9412 Weight (lbs) 36.333 kg Intake: Intake, IV Amount 1000 1000 1000 D5-0.9%Ns 1,000 ml @ 100 1000 mls/hr IV .Q10H [facility] Rx#: [id number] D5-0.9%Ns 1,000 ml @ 125 1000 1000 mls/hr IV .Q8H [facility] Rx#: [id number] Tube Feeding 780 TPN/PPN 565 Other 300 200 Output: Gastric Drainage 260 Urine 900 350 Stool 200 Other: Stool Characteristics Soft Soft Formed Formed Active Medications: Current Medications Acetaminophen (Tylenol 650mg/20.3ml Suspension) 650 mg GT Q4H PRN PRN Reason: MILD PAIN AND FEVER >101 Stop: 02/14/17 22:20 Last Admin: 12/17/16 20:56 Dose: 650 mg Acetylcysteine (Mucomyst 20%) 3 ml HHN Q4HRT [facility] Stop: 02/14/17 22:59 Last Admin: 12/18/16 15:26 Dose: 3 ml Albuterol Sulfate (Albuterol 2.5mg/3ml Neb Ud) 2.5 mg HHN Q4HRT [facility] Stop: 02/14/17 22:59 Last Admin: 12/18/16 15:26 Dose: 2.5 mg Atorvastatin Calcium (Lipitor) 40 mg PO HS [facility] PRN Reason: Protocol Stop: 02/15/17 20:59 Last Admin: 12/17/16 20:56 Dose: 40 mg Dextrose (D50w) 50 ml IVP PRN PRN PRN Reason: blood sugar < 60 Stop: 02/14/17 22:20 Diltiazem HCl (Cardizem) 20 mg IVP Q4H PRN PRN Reason: HR Greater than 130 per min Stop: 02/14/17 22:20 Folic Acid (Folate) 1 mg GT DAILY [facility] Stop: 02/15/17 08:59 Last Admin: 12/18/16 08:39 Dose: 1 mg Guaifenesin (Robitussin) 200 mg GT Q4HR PRN PRN Reason: Cough or Congestion Stop: 02/14/17 22:20 Levofloxacin (Levaquin Pb) 250 mg in 50 mls @ 50 mls/hr IV Q48HR [facility] Stop: 02/16/17 21:59 Sodium Chloride (Nacl 0.9%) 1,000 mls @ 100 mls/hr IV .Q10H [facility] Stop: 02/16/17 15:44 Insulin Aspart (Novolog) 0 units SUBQ ACHS [facility] PRN Reason: Protocol Stop: 02/15/17 07:29 Last Admin: 12/18/16 12:18 Dose: Not Given Insulin Human NPH (Novolin N) 30 units SUBQ BIDAC [facility] PRN Reason: Protocol Stop: 02/15/17 07:29 Last Admin: 12/18/16 07:16 Dose: 30 units Ipratropium [place] (Atrovent Neb 0.5mg/2.5ml) 0.5 mg HHN Q4HRT [facility] Stop: 02/14/17 22:59 Last Admin: 12/18/16 15:26 Dose: 0.5 mg Lactobacillus Rhamnosus (Culturelle) 1 each PO DAILY [facility] Stop: 02/15/17 08:59 Last Admin: 12/18/16 08:39 Dose: 1 each Lactulose (Cephulac) 20 gm GT DAILY [facility] Stop: 02/15/17 08:59 Last Admin: 12/18/16 08:39 Dose: 20 gm Metoclopramide HCl (Reglan) 5 mg PO TID [facility] Stop: 02/15/17 08:59 Last Admin: 12/18/16 14:18 Dose: 5 mg Miscellaneous (Clinical Monitoring) 1 ea MC DAILY PRN PRN Reason: RENAL Stop: 02/15/17 07:55 Nystatin (Nystop) 100,000 units TP BID [facility] Stop: 02/15/17 08:59 Last Admin: 12/18/16 08:39 Dose: 100,000 units Ondansetron HCl (Zofran) 4 mg IV Q8H PRN PRN Reason: Nausea / Vomiting Stop: 02/14/17 22:20 Petrolatum (Zinc Oxide) 1 appl TP QSHIFT [facility] Stop: 02/15/17 07:59 Last Admin: 12/18/16 08:39 Dose: 1 appl Vitamin A (Vitamin A & D) 5 gm TP DAILY [facility] Stop: 02/15/17 08:59 Last Admin: 12/18/16 08:39 Dose: 5 gm Zinc Sulfate (Zinc Sulfate) 220 mg GT DAILY [facility] Stop: 02/15/17 08:59 Last Admin: 12/18/16 08:39 Dose: 220 mg General: congested, demented HEENT: NC/AT, PERRLA Neck: Supple, No JVD Lungs: congested, rales, ronchi Cardiovascular: RRR, Normal S1, Normal S2 Abdomen: globular, positive bowel sound Extremities: excoriation, contracture Neurological: no change, unable to follow command - Procedures Procedures: Procedures Procedure Code Date BLOOD TRANSFUSION SERVICE 18915 03/06/16 BYPASS DESCENDING COLON TO CUTANEOUS, OPEN APPROACH [id number] 09/21/16 CHANGE FEEDING DEVICE IN UP INTEST TRACT, MUSIC CRITIC APPROACH [id number] 09/21/16 CHANGE GASTROSTOMY TUBE 84193 09/21/16 COLOSTOMY 46992 09/21/16 AGNIESZKA BONE 20 SQ CM/< 10955 01/28/15 DIAGNOSTIC COLONOSCOPY 53171 03/06/16 EGD BIOPSY SINGLE/MULTIPLE 88798 03/06/16 EXCISION OF DESCENDING COLON, OPEN APPROACH [id number] 09/21/16 EXCISION OF DUODENUM, ENDO, DIAGN [id number] 03/06/16 EXCISION OF SACRUM, OPEN APPROACH [id number] 09/21/16 EXCISION OF STOMACH, ENDO, DIAGN [id number] 03/06/16 IMMOBILIZ/WOUND ATTN NEC 93.59 01/28/15 INSERT INDWELLING CATH 57.94 10/18/05 INSERT TEMP BLADDER CATH 31812 10/18/05 INSERTION OF INFUSION DEV INTO SUP VENA CAVA, PERC APPROACH [id number] 09/21/16 INSPECTION OF LOWER INTESTINAL TRACT, ENDO [id number] 03/06/16 INSPECTION OF UPPER INTESTINAL TRACT, ENDO [id number] 10/27/15 LOC EXC BONE LESION NEC 77.69 01/28/15 PACKED CELL TRANSFUSION 99.04 10/20/14 REMOVAL OF PRESSURE SORE 22779 09/21/16 REPLACE GASTROSTOMY TUBE 97.02 06/09/14 RESPIRATORY VENTILATION, 24-96 CONSECUTIVE HOURS [id number] 09/21/16 TRANSFUSE NONAUT RED BLOOD CELLS IN PERIPH VEIN, PERC [id number] 09/21/16 VENT MGMT INPAT INIT DAY 03440 09/21/16 Internal Medicine Assmt/Plan - Assessment Assessment: Acute urinary tract infection, sepsis, acute renal failure, severe anemia, hyponatremia, hyperkalemia, diabetes, uncontrolled, mental retardation, hiatal hernia, status post PEG, decubitus ulceration. - Plan Plan: cont on iv abx will transfuse rbc will refer to gi will follow up cx dw rn see orders Nutritional Asmnt/Malnutr-PDOC - Dietary Evaluation Malnutrition Findings (Please click <Entered> for more info): Nutritional Asmnt/Malnutrition Start: 12/17/16 11: 11 Text: Status: Complete Freq: Document 12/17/16 12:02 GSUN (Rec: 12/17/16 12:27 GSUN [email or web address]) Nutritional Asmnt/Malnutrition Patient General Information Nutritional Screening High Risk Screening Diagnosis ER: ESRD, renal failure, anemia, UTI, urosepsis Pertinent Medical Hx/Surgical Hx ER: HTN, DMn CAD, dyslipidemia , ESRD, arthritis, dementia, PEG Subjective Information 56 year old female from . Pt was moving head, making nonsensical noises during visit. Severe muscle/fat wasting to lower extremities due to bedbound, otherwise no significant muscle/fat noted elewhere. Obtained CBW 80.1lb via bedscale with [address] called [facility] and obtained height and UBW 75.2lb in November 2016. Estimated nutritional needs calculations based on IBW, BMI <18.5. Observed Diabetisource infusing as ordered during visit. Pt toelrating tube feeding well per RN notes. Current Diet Order/ Nutrition Support Diabetisource 65ml/hr x 20hrs, providing 1560kcal and 78g protein Pertinent Medications Lipitor, D50w, D5 0.9, Folate, Novolog, Novolin, Culturelle, Reglan, Zofran, Zinc Oxide, Vitamin A&D, Zinc Sulfate Pertinent Labs 12/16: A1c 6.2H 12/17: potassium 3.3L, BUN 117H , creaitnine 3H, glucose 332H Nutritional Hx/Data Height 1.45 m Height (Calculated Centimeters) 144.8 Current Weight (lbs) 36.333 kg Weight (Calculated Kilograms) 36.3 Weight (Calculated Grams) 60631.7 Usual body Weight (lbs) 75 [place] Body Weight 92.5 Weight Status Underweight GI Symptoms Cultural/Ethnic/Mandaen Belief [place] Care: Diabetisource 65ml/hr x 20hrs, providing 1560kcal and 78g protein. Water flush 250ml q6hrs. Skin Integrity/Comment: [place] 12. Per chart, full thickness pressure ulcer to buttocks. Estimated Nutritional Goals Calories/Kcals/Kg IBW 92.5lb/42kg Kcals Calculated 1260-1740kcal (30-35kcal/kg) Protein g/kg: IBW Protein Calculated 50-63g (1.2-1.5g/kg) Fluid: ml Per MD (dx. ESRD) Nutritional Problem 2. Problem Problem Impaired nutrient utilization related to Etiology ER: ESRD, chart: CKD aeb Signs/Symptoms: BUN 119, creatinine 3.1 1. Problem Problem Increased kcal and prot needs related to Etiology hypermetabolic state aeb Signs/Symptoms: full thickness pressure ulcer to buttocks, urosepsis Intervention/Recommendation Comments 1. Recommend decreasing tube feeding rate to Diabetisource 55ml/hr x 20hrs, providing 1320kcal and 66g protein. Calculations based on IBW with consideration of renal dysfunction, full thickness pressure ulcer to buttocks, and DM. 2. Recommend discontinuing zinc supplement to prevent zinc toxicity as pt is receiving adequate zinc from tube feeding. 3. Pt is receiving adequate vitamin C from tube feeding for wound healing. 4. RD called [facility] and obtained UBW in November 2016 to be 75.2lb. Bedscale today CBW 80.1lb with 2 pillows removed . Expected Outcomes/Goals Expected Outcomes/Goals 1. Pt to meet 100% of estimated nutritional needs.
[2016-12-18] MEDS: Sodium Chloride 0.9% 1,000 ML IV SCH (17:40)
--- NOTE | 2016-12-18 19:09 | General Progress Note ---
Subjective - Review of Systems Service Date: 12/18/16 Events since last encounter: NO CHANGE Objective - Results Result Diagrams: 12/18/16 06:30 12/18/16 06:30 Recent Labs: Laboratory Last Values WBC 4.9 Th/cmm (4.8-10.8) D 12/18/16 06:30 RBC 2.49 Mil/cmm (3.80-5.10) L 12/18/16 06:30 Hgb 6.8 gm/dL (11.7-15.5) L* 12/18/16 06:30 Hct 21.0 % (35.0-45.0) L* 12/18/16 06:30 MCV 84.3 fl (81-100) 12/18/16 06:30 MCH 27.1 pg (27.0-31.0) 12/18/16 06:30 MCHC Differential 32.2 pg (28.0-36.0) 12/18/16 06:30 RDW 17.9 % (11.5-20.0) 12/18/16 06:30 Plt Count 101 Th/cmm (150-400) L 12/18/16 06:30 MPV 9.2 fl 12/18/16 06:30 Neutrophils % 80.1 % (40.0-80.0) H 12/16/16 18:10 Band Neutrophils % 8 % (0-10) 12/18/16 06:30 Lymphocytes % 5.6 % (20.0-50.0) L 12/16/16 18:10 Monocytes % 11.6 % (2.0-10.0) H 12/16/16 18:10 Eosinophils % 2.4 % (0.0-5.0) 12/16/16 18:10 Basophils % 0.3 % (0.0-2.0) 12/16/16 18:10 Neutrophils (Manual) 63 % (40-80) 12/18/16 06:30 Lymphocytes 9 % (20-50) L 12/18/16 06:30 Monocytes 19 % (2-10) H 12/18/16 06:30 Eosinophils 1 % (0-5) 12/18/16 06:30 Platelet Estimate DECREASED PLATELETS (NORMAL) 12/18/16 06:30 Platelet Morphology GIANT PLATELETS SEEN (NORMAL) 12/18/16 06:30 Anisocytosis 1+ 12/18/16 06:30 RBC Morph Micro Appear ABNORMAL (NORMAL) 12/18/16 06:30 PT 12.2 SECONDS (9.5-11.5) H 12/16/16 18:10 INR 1.16 (0.5-1.4) 12/16/16 18:10 Sodium 141 mEq/L (136-145) 12/18/16 06:30 Potassium 3.9 mEq/L (3.5-5.1) 12/18/16 06:30 Chloride 104 mEq/L (98-107) 12/18/16 06:30 Carbon Dioxide 25.4 mEq/L (21.0-31.0) 12/18/16 06:30 Anion Gap 15.5 (7.0-16.0) 12/18/16 06:30 BUN 103 mg/dL (7-25) H* 12/18/16 06:30 Creatinine 2.8 mg/dL (0.6-1.2) H 12/18/16 06:30 Est GFR ( Amer) 22.6 ml/min (>90) 12/18/16 06:30 Est GFR (Non-Af Amer) 18.6 ml/min 12/18/16 06:30 BUN/Creatinine Ratio 36.8 12/18/16 06:30 Glucose 432 mg/dL (70-105) H 12/18/16 06:30 POC Glucose 166 MG/DL (70 - 105) H 12/18/16 12:15 Hemoglobin A1c % 6.2 % (4.0-6.0) H 12/16/16 18:10 Calcium 8.1 mg/dL (8.6-10.3) L 12/18/16 06:30 Magnesium 3.0 mg/dL (1.9-2.7) H 12/18/16 06:30 Total Bilirubin 0.2 mg/dL (0.3-1.0) L 12/18/16 06:30 AST 13 U/L (13-39) 12/18/16 06:30 ALT 13 U/L (7-52) 12/18/16 06:30 Alkaline Phosphatase 155 U/L (34-104) H 12/18/16 06:30 Ammonia 40 umol/L (16-53) 12/18/16 06:30 Creatine Kinase 51 U/L (30-223) 12/16/16 18:10 Troponin I 0.02 ng/mL (0.01-0.05) 12/16/16 18:10 B-Natriuretic Peptide 224.0 pg/mL (5.0-100.0) H 12/18/16 06:30 Total Protein 5.5 gm/dL (6.0-8.3) L 12/18/16 06:30 Albumin 2.1 gm/dL (3.7-5.3) L 12/18/16 06:30 Globulin 3.4 gm/dL 12/18/16 06:30 Albumin/Globulin Ratio 0.6 (1.0-1.8) L 12/18/16 06:30 Triglycerides 584 mg/dL (<150) H 12/16/16 18:10 Cholesterol 83 mg/dL (<200) 12/16/16 18:10 LDL Cholesterol Direct 13 mg/dL (75-193) L 12/16/16 18:10 HDL Cholesterol 3 mg/dL (23-92) L 12/16/16 18:10 TSH 2.11 uIU/ml (0.34-5.60) 12/17/16 06:12 Urine Source [place] 12/16/16 17:41 Urine Color YELLOW 12/16/16 17:41 Urine Clarity CLOUDY (CLEAR) H 12/16/16 17:41 Urine pH 7.0 12/16/16 17:41 Ur Specific [place] 1.015 (1.005-1.030) 12/16/16 17:41 Urine Protein 100 mg/dL (NEGATIVE) H 12/16/16 17:41 Urine Glucose (UA) NEGATIVE mg/dL (NEGATIVE) 12/16/16 17:41 Urine Ketones NEGATIVE mg/dL (NEGATIVE) 12/16/16 17:41 Urine Blood LARGE (NEGATIVE) H 12/16/16 17:41 Urine Nitrate NEGATIVE (NEGATIVE) 12/16/16 17:41 Urine Bilirubin NEGATIVE (NEGATIVE) 12/16/16 17:41 Urine Urobilinogen 1.0 E.U./dL (0.2 - 1.0) 12/16/16 17:41 Ur Leukocyte Esterase LARGE (NEGATIVE) H 12/16/16 17:41 Urine RBC 25-50 /hpf (0-5) H 12/16/16 17:41 Urine WBC 25-50 /hpf (0-5) H 12/16/16 17:41 Ur Epithelial Cells MODERATE /lpf (FEW) 12/16/16 17:41 Urine Bacteria MODERATE /hpf (NONE SEEN) 12/16/16 17:41 Blood Type O POSITIVE 12/18/16 15:54 Antibody Screen NEGATIVE 12/18/16 15:54 Crossmatch See Detail 12/18/16 15:54 - Physical Exam Vitals and I&O: Vital Signs Temp 98.3 F 12/18/16 12:00 Pulse 101 12/18/16 15:26 Resp 20 12/18/16 15:26 BP 101/51 12/18/16 12:00 Pulse Ox 96 12/18/16 15:26 Intake & Output 12/18/16 12/18/16 12/19/16 06:59 18:59 06:59 Intake Total 1765 1000 Output Total 810 Balance 955 1000 Intake: Intake, IV Amount 1000 1000 D5-0.9%Ns 1,000 ml @ 125 1000 1000 mls/hr IV .Q8H [facility] Rx#: [id number] TPN/PPN 565 Other 200 Output: Gastric Drainage 260 Urine 350 Stool 200 Other: Stool Characteristics Soft Formed Active Medications: Current Medications Acetaminophen (Tylenol 650mg/20.3ml Suspension) 650 mg GT Q4H PRN PRN Reason: MILD PAIN AND FEVER >101 Stop: 02/14/17 22:20 Last Admin: 12/17/16 20:56 Dose: 650 mg Acetylcysteine (Mucomyst 20%) 3 ml HHN Q4HRT [facility] Stop: 02/14/17 22:59 Last Admin: 12/18/16 15:26 Dose: 3 ml Albuterol Sulfate (Albuterol 2.5mg/3ml Neb Ud) 2.5 mg HHN Q4HRT [facility] Stop: 02/14/17 22:59 Last Admin: 12/18/16 15:26 Dose: 2.5 mg Atorvastatin Calcium (Lipitor) 40 mg PO HS [facility] PRN Reason: Protocol Stop: 02/15/17 20:59 Last Admin: 12/17/16 20:56 Dose: 40 mg Dextrose (D50w) 50 ml IVP PRN PRN PRN Reason: blood sugar < 60 Stop: 02/14/17 22:20 Diltiazem HCl (Cardizem) 20 mg IVP Q4H PRN PRN Reason: HR Greater than 130 per min Stop: 02/14/17 22:20 Folic Acid (Folate) 1 mg GT DAILY [facility] Stop: 02/15/17 08:59 Last Admin: 12/18/16 08:39 Dose: 1 mg Guaifenesin (Robitussin) 200 mg GT Q4HR PRN PRN Reason: Cough or Congestion Stop: 02/14/17 22:20 Levofloxacin (Levaquin Pb) 250 mg in 50 mls @ 50 mls/hr IV Q48HR [facility] Stop: 02/16/17 21:59 Sodium Chloride (Nacl 0.9%) 1,000 mls @ 100 mls/hr IV .Q10H [facility] Stop: 02/16/17 15:44 Last Admin: 12/18/16 17:40 Dose: 100 mls/hr Insulin Aspart (Novolog) 0 units SUBQ ACHS [facility] PRN Reason: Protocol Stop: 02/15/17 07:29 Last Admin: 12/18/16 17:43 Dose: 2 units Insulin Human NPH (Novolin N) 30 units SUBQ BIDAC [facility] PRN Reason: Protocol Stop: 02/15/17 07:29 Last Admin: 12/18/16 17:46 Dose: 30 units Ipratropium [place] (Atrovent Neb 0.5mg/2.5ml) 0.5 mg HHN Q4HRT [facility] Stop: 02/14/17 22:59 Last Admin: 12/18/16 15:26 Dose: 0.5 mg Lactobacillus Rhamnosus (Culturelle) 1 each PO DAILY [facility] Stop: 02/15/17 08:59 Last Admin: 12/18/16 08:39 Dose: 1 each Lactulose (Cephulac) 20 gm GT DAILY [facility] Stop: 02/15/17 08:59 Last Admin: 12/18/16 08:39 Dose: 20 gm Metoclopramide HCl (Reglan) 5 mg PO TID [facility] Stop: 02/15/17 08:59 Last Admin: 12/18/16 14:18 Dose: 5 mg Miscellaneous (Clinical Monitoring) 1 ea MC DAILY PRN PRN Reason: RENAL Stop: 07/16/17 07:55 Mupirocin (Bactroban Oint) 1 appl TP BID [facility] Stop: 02/16/17 16:59 Last Admin: 12/18/16 17:44 Dose: 1 appl Nystatin (Nystop) 100,000 units TP BID [facility] Stop: 02/15/17 08:59 Last Admin: 12/18/16 17:44 Dose: 100,000 units Ondansetron HCl (Zofran) 4 mg IV Q8H PRN PRN Reason: Nausea / Vomiting Stop: 02/14/17 22:20 Petrolatum (Zinc Oxide) 1 appl TP QSHIFT [facility] Stop: 02/15/17 07:59 Last Admin: 12/18/16 08:39 Dose: 1 appl Vitamin A (Vitamin A & D) 5 gm TP DAILY [facility] Stop: 02/15/17 08:59 Last Admin: 12/18/16 08:39 Dose: 5 gm Zinc Sulfate (Zinc Sulfate) 220 mg GT DAILY [facility] Stop: 02/15/17 08:59 Last Admin: 12/18/16 08:39 Dose: 220 mg General: Other (CONFUSIONAL) HEENT: Atraumatic Neck: Supple Cardiovascular: Regular rate Abdomen: Bowel sounds (NORMAL) Neurological: Normal gait - Procedures Procedures: Procedures Procedure Code Date BLOOD TRANSFUSION SERVICE 40737 03/06/16 BYPASS DESCENDING COLON TO CUTANEOUS, OPEN APPROACH [id number] 09/21/16 CHANGE FEEDING DEVICE IN UP INTEST TRACT, PUMPER HEAD APPROACH [id number] 09/21/16 CHANGE GASTROSTOMY TUBE 18602 09/21/16 COLOSTOMY 35078 09/21/16 AGNIESZKA BONE 20 SQ CM/< 32181 01/28/15 DIAGNOSTIC COLONOSCOPY 57452 03/06/16 EGD BIOPSY SINGLE/MULTIPLE 78851 03/06/16 EXCISION OF DESCENDING COLON, OPEN APPROACH [id number] 09/21/16 EXCISION OF DUODENUM, ENDO, DIAGN [id number] 03/06/16 EXCISION OF SACRUM, OPEN APPROACH [id number] 09/21/16 EXCISION OF STOMACH, ENDO, DIAGN [id number] 03/06/16 IMMOBILIZ/WOUND ATTN NEC 93.59 01/28/15 INSERT INDWELLING CATH 57.94 10/18/05 INSERT TEMP BLADDER CATH 84198 10/18/05 INSERTION OF INFUSION DEV INTO SUP VENA CAVA, PERC APPROACH [id number] 09/21/16 INSPECTION OF LOWER INTESTINAL TRACT, ENDO [id number] 03/06/16 INSPECTION OF UPPER INTESTINAL TRACT, ENDO [id number] 10/27/15 LOC EXC BONE LESION NEC 77.69 01/28/15 PACKED CELL TRANSFUSION 99.04 10/20/14 REMOVAL OF PRESSURE SORE 75895 09/21/16 REPLACE GASTROSTOMY TUBE 97.02 06/09/14 RESPIRATORY VENTILATION, 24-96 CONSECUTIVE HOURS [id number] 09/21/16 TRANSFUSE NONAUT RED BLOOD CELLS IN PERIPH VEIN, PERC [id number] 09/21/16 VENT MGMT INPAT INIT DAY 39360 09/21/16 Assessment/Plan - Problem List Patient Problems: All Active Problems Anemia (Acute 03/06/16) D64.9 Dyspnea (Acute) R06.00 Fever, unspecified (Acute) R50.9 HYPOTENSION WITH TACHYCARDIA AND CONGEST (Acute) Hyperglycemia (Acute) R73.9 Hyperosmolality and/or hypernatremia (Acute) E87.0 Mental retardation (Acute) F79 Other abnormal clinical finding (Acute) R68.89 Pneumonia (Acute) J18.9 Staphylococcal sepsis (Acute) Uncontrolled diabetes mellitus (Acute) E11.65 Urinary tract infection (Acute) - Plan Plan: NSS 100 CC PER HOUR RECHECK CHEM TOMORROW Nutritional Asmnt/Malnutr-PDOC - Dietary Evaluation Malnutrition Findings (Please click <Entered> for more info): Nutritional Asmnt/Malnutrition Start: 12/17/16 11: 11 Text: Status: Complete Freq: Document 12/17/16 12:02 SANTINO (Rec: 12/17/16 12:27 SANTINO [email or web address]) Nutritional Asmnt/Malnutrition Patient General Information Nutritional Screening High Risk Screening Diagnosis ER: ESRD, renal failure, anemia, UTI, urosepsis Pertinent Medical Hx/Surgical Hx ER: HTN, DMn CAD, dyslipidemia , ESRD, arthritis, dementia, PEG Subjective Information 56 [address] [facility]. Pt was moving head, making nonsensical noises during visit. Severe muscle/fat wasting to lower extremities due to bedbound, otherwise no significant muscle/fat noted elewhere. Obtained CBW 80.1lb via bedscale with [address] called [facility] and obtained height and UBW 75.2lb in November 2016. Estimated nutritional needs calculations based on IBW, BMI <18.5. Observed Diabetisource infusing as ordered during visit. Pt toelrating tube feeding well per RN notes. 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 Water flush 250ml q6hrs. Skin Integrity/Comment: [place] 12. Per chart, full thickness pressure ulcer to buttocks. Estimated Nutritional Goals Calories/Kcals/Kg IBW 92.5lb/42kg Kcals Calculated 1260-1740kcal (30-35kcal/kg) Protein g/kg: IBW Protein Calculated 50-63g (1.2-1.5g/kg) Fluid: ml Per MD (dx. ESRD) Nutritional Problem 2. Problem Problem Impaired nutrient utilization related to Etiology ER: ESRD, chart: CKD aeb Signs/Symptoms: BUN 119, creatinine 3.1 1. Problem Problem Increased kcal and prot needs related to Etiology hypermetabolic state aeb Signs/Symptoms: full thickness pressure ulcer to buttocks, urosepsis Intervention/Recommendation Comments 1. Recommend decreasing tube feeding rate to Diabetisource 55ml/hr x 20hrs, providing 1320kcal and 66g protein. Calculations based on IBW with consideration of renal dysfunction, full thickness pressure ulcer to buttocks, and DM. 2. Recommend discontinuing zinc supplement to prevent zinc toxicity as pt is receiving adequate zinc from tube feeding. 3. Pt is receiving adequate vitamin C from tube feeding for wound healing. 4. RD called [facility] and obtained UBW in November 2016 to be 75.2lb. Bedscale today CBW 80.1lb with 2 pillows removed . Expected Outcomes/Goals Expected Outcomes/Goals 1. Pt to meet 100% of estimated nutritional needs.
[2016-12-18] MEDS ORDERED: Levofloxacin 250 mg/50 mL Premix Bag IV SCH (22:00)
[2016-12-19] MEDS: Ipratropium Neb 0.5 mg/2.5 mL UD HHN SCH ×7 (03:04→23:05)
[2016-12-19 05:52] LABS: MEAN CORPUSCULAR HGB CONC 32.2 pg (28.0-36.0); MEAN PLATELET VOLUME 8.3 fl; PLATELET COUNT 119 Th/cmm (150-400); RED BLOOD COUNT 4.44 Mil/cmm (3.80-5.10); RED CELL DISTRIBUTION WIDTH 15.6 % (11.5-20.0)
[2016-12-19 06:05] LABS: ALB/GLOB RATIO 0.6 (1.0-1.8); ANION GAP 18.2 (7.0-16.0); BILIRUBIN,TOTAL 0.5 mg/dL (0.3-1.0); BUN/CREATININE RATIO 35.8; CALCIUM SERUM 8.3 mg/dL (8.6-10.3); CARBON DIOXIDE 21.4 mEq/L (21.0-31.0); CREATININE - SERUM 2.4 mg/dL (0.6-1.2); MAGNESIUM 2.5 mg/dL (1.9-2.7); POTASSIUM SERUM 3.6 mEq/L (3.5-5.1)
[2016-12-19 06:27] LABS: WHITE BLOOD COUNT 2.7 Th/cmm (4.8-10.8)
[2016-12-19 06:28] LABS: HEMATOCRIT 37.2 % (35.0-45.0)
[2016-12-19] MEDS: INSULIN ASPART, RECOMBINANT 100 UNITS/ML SUBQ SCH ×4 (07:04→21:36)
[2016-12-19] MEDS: INSULIN HUMAN ISOPHANE (NPH) 100 UNITS/ML SUBQ SCH ×2 (07:05→17:27)
[2016-12-19 07:30] LABS: BAND NEUTROPHILE 13 % (0-10); EOSINOPHIL 2 % (0-5); NEUTROPHILS 56 % (40-80); TOTAL CELLS COUNTED 100
[2016-12-19 07:33] LABS: PLATELET ESTIMATE DECREASED PLATELETS (NORMAL); PLATELET MORPHOLOGY GIANT PLATELETS SEEN (NORMAL)
[2016-12-19] MEDS: Albuterol Nebulizer 2.5mg/3mL HHN SCH ×5 (07:58→23:05)
[2016-12-19 08:10] LABS: IRON SATURATION 18 % (15-55); TIBC (LCI) 145 ug/dL (250-450); UIBC 119 ug/dL (131-425)
[2016-12-19] MEDS: Lactobacillus Rhamnosus 10 Billion CFU Capsule PO SCH (08:23)
[2016-12-19] MEDS: Lactulose 10 Gm/15 mL 30mL UDC GT SCH (08:23)
[2016-12-19] MEDS: Zinc Oxide Ointment 60 gm TP SCH ×2 (08:24→21:38)
[2016-12-19] MEDS: NYSTATIN 100000 UNITS/GM POWD TP SCH ×2 (08:24→17:15)
[2016-12-19] MEDS: Vitamin A/Vitamin D 5 gm Packet TP SCH (08:24)
[2016-12-19] MEDS: Sodium Chloride 0.9% 1,000 ML IV SCH (08:26)
--- NOTE | 2016-12-19 14:19 | General Progress Note ---
Subjective - Review of Systems Service Date: 12/19/16 (clinically improving) Objective - Results Result Diagrams: 12/19/16 05:15 12/19/16 05:15 Recent Labs: Laboratory Last Values WBC 2.7 Th/cmm (4.8-10.8) L D 12/19/16 05:15 RBC 4.44 Mil/cmm (3.80-5.10) 12/19/16 05:15 Hgb 12.0 gm/dL (11.7-15.5) D 12/19/16 05:15 Hct 37.2 % (35.0-45.0) D 12/19/16 05:15 MCV 84.0 fl (81-100) 12/19/16 05:15 MCH 27.0 pg (27.0-31.0) 12/19/16 05:15 MCHC Differential 32.2 pg (28.0-36.0) 12/19/16 05:15 RDW 15.6 % (11.5-20.0) 12/19/16 05:15 Plt Count 119 Th/cmm (150-400) L 12/19/16 05:15 MPV 8.3 fl 12/19/16 05:15 Neutrophils % 80.1 % (40.0-80.0) H 12/16/16 18:10 Band Neutrophils % 13 % (0-10) H 12/19/16 05:15 Lymphocytes % 5.6 % (20.0-50.0) L 12/16/16 18:10 Monocytes % 11.6 % (2.0-10.0) H 12/16/16 18:10 Eosinophils % 2.4 % (0.0-5.0) 12/16/16 18:10 Basophils % 0.3 % (0.0-2.0) 12/16/16 18:10 Neutrophils (Manual) 56 % (40-80) 12/19/16 05:15 Lymphocytes 23 % (20-50) 12/19/16 05:15 Monocytes 6 % (2-10) 12/19/16 05:15 Eosinophils 2 % (0-5) 12/19/16 05:15 Nucleated RBCs 1.0 % (0-0) H 12/19/16 05:15 Platelet Estimate DECREASED PLATELETS (NORMAL) 12/19/16 05:15 Platelet Morphology GIANT PLATELETS SEEN (NORMAL) 12/19/16 05:15 Anisocytosis 1+ 12/18/16 06:30 RBC Morph Micro Appear ABNORMAL (NORMAL) 12/18/16 06:30 PT 12.2 SECONDS (9.5-11.5) H 12/16/16 18:10 INR 1.16 (0.5-1.4) 12/16/16 18:10 Sodium 148 mEq/L (136-145) H 12/19/16 05:15 Potassium 3.6 mEq/L (3.5-5.1) 12/19/16 05:15 Chloride 112 mEq/L (98-107) H 12/19/16 05:15 Carbon Dioxide 21.4 mEq/L (21.0-31.0) 12/19/16 05:15 Anion Gap 18.2 (7.0-16.0) H 12/19/16 05:15 BUN 86 mg/dL (7-25) H* 12/19/16 05:15 Creatinine 2.4 mg/dL (0.6-1.2) H 12/19/16 05:15 Est GFR ( Amer) 27.0 ml/min (>90) 12/19/16 05:15 Est GFR (Non-Af Amer) 22.3 ml/min 12/19/16 05:15 BUN/Creatinine Ratio 35.8 12/19/16 05:15 Glucose 38 mg/dL (70-105) L* 12/19/16 05:15 POC Glucose 81 MG/DL (70 - 105) 12/19/16 11:58 Hemoglobin A1c % 6.2 % (4.0-6.0) H 12/16/16 18:10 Calcium 8.3 mg/dL (8.6-10.3) L 12/19/16 05:15 Magnesium 2.5 mg/dL (1.9-2.7) 12/19/16 05:15 Iron 26 ug/dL (27-159) L 12/18/16 06:30 TIBC 145 ug/dL (250-450) L 12/18/16 06:30 Iron Saturation 18 % (15-55) 12/18/16 06:30 Unsaturated IBC 119 ug/dL (131-425) L 12/18/16 06:30 Total Bilirubin 0.5 mg/dL (0.3-1.0) 12/19/16 05:15 AST 16 U/L (13-39) 12/19/16 05:15 ALT 14 U/L (7-52) 12/19/16 05:15 Alkaline Phosphatase 168 U/L (34-104) H 12/19/16 05:15 Ammonia 40 umol/L (16-53) 12/18/16 06:30 Creatine Kinase 51 U/L (30-223) 12/16/16 18:10 Troponin I 0.02 ng/mL (0.01-0.05) 12/16/16 18:10 B-Natriuretic Peptide 224.0 pg/mL (5.0-100.0) H 12/18/16 06:30 Total Protein 6.2 gm/dL (6.0-8.3) 12/19/16 05:15 Albumin 2.3 gm/dL (3.7-5.3) L 12/19/16 05:15 Globulin 3.9 gm/dL 12/19/16 05:15 Albumin/Globulin Ratio 0.6 (1.0-1.8) L 12/19/16 05:15 Triglycerides 584 mg/dL (<150) H 12/16/16 18:10 Cholesterol 83 mg/dL (<200) 12/16/16 18:10 LDL Cholesterol Direct 13 mg/dL (75-193) L 12/16/16 18:10 HDL Cholesterol 3 mg/dL (23-92) L 12/16/16 18:10 TSH 2.11 uIU/ml (0.34-5.60) 12/17/16 06:12 Urine Source [place] 12/16/16 17:41 Urine Color YELLOW 12/16/16 17:41 Urine Clarity CLOUDY (CLEAR) H 12/16/16 17:41 Urine pH 7.0 12/16/16 17:41 Ur Specific [place] 1.015 (1.005-1.030) 12/16/16 17:41 Urine Protein 100 mg/dL (NEGATIVE) H 12/16/16 17:41 Urine Glucose (UA) NEGATIVE mg/dL (NEGATIVE) 12/16/16 17:41 Urine Ketones NEGATIVE mg/dL (NEGATIVE) 12/16/16 17:41 Urine Blood LARGE (NEGATIVE) H 12/16/16 17:41 Urine Nitrate NEGATIVE (NEGATIVE) 12/16/16 17:41 Urine Bilirubin NEGATIVE (NEGATIVE) 12/16/16 17:41 Urine Urobilinogen 1.0 E.U./dL (0.2 - 1.0) 12/16/16 17:41 Ur Leukocyte Esterase LARGE (NEGATIVE) H 12/16/16 17:41 Urine RBC 25-50 /hpf (0-5) H 12/16/16 17:41 Urine WBC 25-50 /hpf (0-5) H 12/16/16 17:41 Ur Epithelial Cells MODERATE /lpf (FEW) 12/16/16 17:41 Urine Bacteria MODERATE /hpf (NONE SEEN) 12/16/16 17:41 Blood Type O POSITIVE 12/18/16 15:54 Antibody Screen NEGATIVE 12/18/16 15:54 Crossmatch See Detail 12/18/16 15:54 - Physical Exam Vitals and I&O: Vital Signs Temp 99.2 F 12/19/16 08:00 Pulse 82 12/19/16 12:03 Resp 18 12/19/16 12:03 BP 107/57 12/19/16 08:00 Pulse Ox 98 12/19/16 12:03 Intake & Output 12/18/16 12/19/16 12/19/16 18:59 06:59 18:59 Intake Total 1000 1400 Output Total 1500 Balance 1000 -100 Intake: Intake, IV Amount 1000 1050 D5-0.9%Ns 1,000 ml @ 125 1000 mls/hr IV .Q8H [facility] Rx#: [id number] Levofloxacin 250mg/50mL 50 250 mg In 50 ml @ 50 mls/ hr IV Q48HR [facility] Rx#: [id number] Sodium Chloride 0.9% 1, 1000 000 ml @ 100 mls/hr IV . Q10H [facility] Rx#:[id number] Tube Feeding 350 Output: Urine 1500 Other: # Bowel Movements 1 Stool Characteristics Soft Soft Foamy Active Medications: Current Medications Acetaminophen (Tylenol 650mg/20.3ml Suspension) 650 mg GT Q4H PRN PRN Reason: MILD PAIN AND FEVER >101 Stop: 02/14/17 22:20 Last Admin: 12/19/16 12:14 Dose: 650 mg Acetylcysteine (Mucomyst 20%) 3 ml HHN Q4HRT [facility] Stop: 02/14/17 22:59 Last Admin: 12/19/16 12:03 Dose: 3 ml Albuterol Sulfate (Albuterol 2.5mg/3ml Neb Ud) 2.5 mg HHN Q4HRT [facility] Stop: 02/14/17 22:59 Last Admin: 12/19/16 12:02 Dose: 2.5 mg Atorvastatin Calcium (Lipitor) 40 mg PO HS [facility] PRN Reason: Protocol Stop: 02/15/17 20:59 Last Admin: 12/18/16 20:47 Dose: 40 mg Dextrose (D50w) 50 ml IVP PRN PRN PRN Reason: blood sugar < 60 Stop: 02/14/17 22:20 Last Admin: 12/19/16 06:06 Dose: 50 ml Diltiazem HCl (Cardizem) 20 mg IVP Q4H PRN PRN Reason: HR Greater than 130 per min Stop: 02/14/17 22:20 Folic Acid (Folate) 1 mg GT DAILY [facility] Stop: 02/15/17 08:59 Last Admin: 12/19/16 08:23 Dose: 1 mg Guaifenesin (Robitussin) 200 mg GT Q4HR PRN PRN Reason: Cough or Congestion Stop: 02/14/17 22:20 Last Admin: 12/19/16 12:14 Dose: 200 mg Levofloxacin (Levaquin Pb) 250 mg in 50 mls @ 50 mls/hr IV Q48HR [facility] Stop: 02/16/17 21:59 Last Infusion: 12/18/16 22:02 Dose: Infused Sodium Chloride (Nacl 0.9%) 1,000 mls @ 100 mls/hr IV .Q10H [facility] Stop: 02/16/17 15:44 Last Admin: 12/19/16 08:26 Dose: 100 mls/hr Insulin Aspart (Novolog) 0 units SUBQ ACHS [facility] PRN Reason: Protocol Stop: 02/15/17 07:29 Last Admin: 12/19/16 11:59 Dose: Not Given Insulin Human NPH (Novolin N) 30 units SUBQ BIDAC [facility] PRN Reason: Protocol Stop: 02/15/17 07:29 Last Admin: 12/19/16 07:05 Dose: Not Given Ipratropium Widen (Atrovent Neb 0.5mg/2.5ml) 0.5 mg HHN Q4HRT [facility] Stop: 02/14/17 22:59 Last Admin: 12/19/16 12:02 Dose: 0.5 mg Lactobacillus Rhamnosus (Culturelle) 1 each PO DAILY [facility] Stop: 02/15/17 08:59 Last Admin: 12/19/16 08:23 Dose: 1 each Lactulose (Cephulac) 20 gm GT DAILY [facility] Stop: 02/15/17 08:59 Last Admin: 12/19/16 08:23 Dose: 20 gm Metoclopramide HCl (Reglan) 5 mg PO TID [facility] Stop: 02/15/17 08:59 Last Admin: 12/19/16 08:23 Dose: 5 mg Miscellaneous (Clinical Monitoring) 1 ea MC DAILY PRN PRN Reason: RENAL Stop: 02/15/17 07:55 Mupirocin (Bactroban Oint) 1 appl TP BID [facility] Stop: 02/16/17 16:59 Last Admin: 12/19/16 08:24 Dose: 1 appl Nystatin (Nystop) 100,000 units TP BID [facility] Stop: 02/15/17 08:59 Last Admin: 12/19/16 08:24 Dose: 100,000 units Ondansetron HCl (Zofran) 4 mg IV Q8H PRN PRN Reason: Nausea / Vomiting Stop: 02/14/17 22:20 Petrolatum (Zinc Oxide) 1 appl TP QSHIFT [facility] Stop: 02/15/17 07:59 Last Admin: 12/19/16 08:24 Dose: 1 appl Vitamin A (Vitamin A & D) 5 gm TP DAILY [facility] Stop: 02/15/17 08:59 Last Admin: 12/19/16 08:24 Dose: 5 gm Zinc Sulfate (Zinc Sulfate) 220 mg GT DAILY [facility] Stop: 02/15/17 08:59 Last Admin: 12/19/16 08:23 Dose: 220 mg General: Alert HEENT: Atraumatic Cardiovascular: Regular rate Lungs: Clear to auscultation (normal) Abdomen: Bowel sounds Psych/Mental Status: Other (abnormal) - Procedures Procedures: Procedures Procedure Code Date BLOOD TRANSFUSION SERVICE 84497 12/16/16 BYPASS DESCENDING COLON TO CUTANEOUS, OPEN APPROACH [id number] 09/21/16 CHANGE FEEDING DEVICE IN UP INTEST TRACT, BILLET WORKER APPROACH [id number] 09/21/16 CHANGE GASTROSTOMY TUBE 89312 09/21/16 COLOSTOMY 11934 09/21/16 AGNIESZKA BONE 20 SQ CM/< 42844 01/28/15 DIAGNOSTIC COLONOSCOPY 34113 03/06/16 EGD BIOPSY SINGLE/MULTIPLE 15593 03/06/16 EXCISION OF DESCENDING COLON, OPEN APPROACH [id number] 09/21/16 EXCISION OF DUODENUM, ENDO, DIAGN [id number] 03/06/16 EXCISION OF SACRUM, OPEN APPROACH [id number] 09/21/16 EXCISION OF STOMACH, ENDO, DIAGN [id number] 03/06/16 IMMOBILIZ/WOUND ATTN NEC 93.59 01/28/15 INSERT INDWELLING CATH 57.94 10/18/05 INSERT TEMP BLADDER CATH 14471 10/18/05 INSERTION OF INFUSION DEV INTO SUP VENA CAVA, PERC APPROACH 87PO15H 09/21/16 INSPECTION OF LOWER INTESTINAL TRACT, ENDO [id number] 03/06/16 INSPECTION OF UPPER INTESTINAL TRACT, ENDO [id number] 10/27/15 LOC EXC BONE LESION NEC 77.69 01/28/15 PACKED CELL TRANSFUSION 99.04 10/20/14 REMOVAL OF PRESSURE SORE 73432 09/21/16 REPLACE GASTROSTOMY TUBE 97.02 06/09/14 RESPIRATORY VENTILATION, 24-96 CONSECUTIVE HOURS [id number] 09/21/16 TRANSFUSE NONAUT RED BLOOD CELLS IN PERIPH VEIN, PERC 65552K3 12/16/16 VENT MGMT INPAT INIT DAY 04732 09/21/16 Assessment/Plan - Problem List Patient Problems: All Active Problems Anemia (Acute 03/06/16) D64.9 Dyspnea (Acute) R06.00 Fever, unspecified (Acute) R50.9 HYPOTENSION WITH TACHYCARDIA AND CONGEST (Acute) Hyperglycemia (Acute) R73.9 Hyperosmolality and/or hypernatremia (Acute) E87.0 Mental retardation (Acute) F79 Other abnormal clinical finding (Acute) R68.89 Pneumonia (Acute) J18.9 Staphylococcal sepsis (Acute) Uncontrolled diabetes mellitus (Acute) E11.65 Urinary tract infection (Acute) - Plan Plan: continue current iv 100 ccpeer hour follow chem periodically urine culture noted e coli multiple drug resistance Nutritional Asmnt/Malnutr-PDOC - Dietary Evaluation Malnutrition Findings (Please click <Entered> for more info): Nutritional Asmnt/Malnutrition Start: 12/17/16 11: 11 Text: Status: Complete Freq: Document 12/17/16 12:02 SANTINO (Rec: 12/17/16 12:27 [id number]) Nutritional Asmnt/Malnutrition Patient General Information Nutritional Screening High Risk Screening Diagnosis ER: ESRD, renal failure, anemia, UTI, urosepsis Pertinent Medical Hx/Surgical Hx ER: HTN, DMn CAD, dyslipidemia , ESRD, arthritis, dementia, PEG Subjective Information 56 year old female from SNF. Pt was moving head, making nonsensical noises during visit. Severe muscle/fat wasting to lower extremities due to bedbound, otherwise no significant muscle/fat noted elewhere. Obtained CBW 80.1lb via bedscale with [address] called [facility] and obtained height and UBW 75.2lb in November 2016. Estimated nutritional needs calculations based on IBW, BMI <18.5. Observed Diabetisource infusing as ordered during visit. Pt toelrating tube feeding well per RN notes. Current Diet Order/ Nutrition Support Diabetisource 65ml/hr x 20hrs, providing 1560kcal and 78g protein Pertinent Medications Lipitor, D50w, D5 0.9, Folate, Novolog, Novolin, Culturelle, Reglan, Zofran, Zinc Oxide, Vitamin A&D, Zinc Sulfate Pertinent Labs 12/16: A1c 6.2H 12/17: potassium 3.3L, BUN 117H , creaitnine 3H, glucose 332H Nutritional Hx/Data Height 1.45 m Height (Calculated Centimeters) 144.8 Current Weight (lbs) 36.333 kg Weight (Calculated Kilograms) 36.3 Weight (Calculated Grams) 10842.7 Usual body Weight (lbs) 75 [place] Body Weight 92.5 Weight Status Underweight GI Symptoms Cultural/Ethnic/[employer] Belief [place] [facility]: Diabetisource 65ml/hr x 20hrs, providing 1560kcal and 78g protein. Water flush 250ml q6hrs. Skin Integrity/Comment: [place] 12. Per chart, full thickness pressure ulcer to buttocks. Estimated Nutritional Goals Calories/Kcals/Kg IBW 92.5lb/42kg Kcals Calculated 1260-1740kcal (30-35kcal/kg) Protein g/kg: IBW Protein Calculated 50-63g (1.2-1.5g/kg) Fluid: ml Per MD (dx. ESRD) Nutritional Problem 2. Problem Problem Impaired nutrient utilization related to Etiology ER: ESRD, chart: CKD aeb Signs/Symptoms: BUN 119, creatinine 3.1 1. Problem Problem Increased kcal and prot needs related to Etiology hypermetabolic state aeb Signs/Symptoms: full thickness pressure ulcer to buttocks, urosepsis Intervention/Recommendation Comments 1. Recommend decreasing tube feeding rate to Diabetisource 55ml/hr x 20hrs, providing 1320kcal and 66g protein. Calculations based on IBW with consideration of renal dysfunction, full thickness pressure ulcer to buttocks, and DM. 2. Recommend discontinuing zinc supplement to prevent zinc toxicity as pt is receiving adequate zinc from tube feeding. 3. Pt is receiving adequate vitamin C from tube feeding for wound healing. 4. RD called [facility] and obtained UBW in November 2016 to be 75.2lb. Bedscale today CBW 80.1lb with 2 pillows removed . Expected Outcomes/Goals Expected Outcomes/Goals 1. Pt to meet 100% of estimated nutritional needs.
[2016-12-19] MEDS: D5-0.9%NS 1,000 ML IV SCH (15:10)
--- NOTE | 2016-12-19 15:10 | Internal Medicine Prog Note ---
Internal Medicine Subjective - Subjective Patient seen and examined:: with staff, chart reviewed Patient is:: awake, non-verbal, non-interactive Patient Complaints of:: congestion Per staff patient is:: no adverse event, no episodes of fall, confused Internal Medicine Objective - Results Result Diagrams: 12/19/16 05:15 12/19/16 05:15 Recent Labs: Laboratory Last Values WBC 2.7 Th/cmm (4.8-10.8) L D 12/19/16 05:15 RBC 4.44 Mil/cmm (3.80-5.10) 12/19/16 05:15 Hgb 12.0 gm/dL (11.7-15.5) D 12/19/16 05:15 Hct 37.2 % (35.0-45.0) D 12/19/16 05:15 MCV 84.0 fl (81-100) 12/19/16 05:15 MCH 27.0 pg (27.0-31.0) 12/19/16 05:15 MCHC Differential 32.2 pg (28.0-36.0) 12/19/16 05:15 RDW 15.6 % (11.5-20.0) 12/19/16 05:15 Plt Count 119 Th/cmm (150-400) L 12/19/16 05:15 MPV 8.3 fl 12/19/16 05:15 Neutrophils % 80.1 % (40.0-80.0) H 12/16/16 18:10 Band Neutrophils % 13 % (0-10) H 12/19/16 05:15 Lymphocytes % 5.6 % (20.0-50.0) L 12/16/16 18:10 Monocytes % 11.6 % (2.0-10.0) H 12/16/16 18:10 Eosinophils % 2.4 % (0.0-5.0) 12/16/16 18:10 Basophils % 0.3 % (0.0-2.0) 12/16/16 18:10 Neutrophils (Manual) 56 % (40-80) 12/19/16 05:15 Lymphocytes 23 % (20-50) 12/19/16 05:15 Monocytes 6 % (2-10) 12/19/16 05:15 Eosinophils 2 % (0-5) 12/19/16 05:15 Nucleated RBCs 1.0 % (0-0) H 12/19/16 05:15 Platelet Estimate DECREASED PLATELETS (NORMAL) 12/19/16 05:15 Platelet Morphology GIANT PLATELETS SEEN (NORMAL) 12/19/16 05:15 Anisocytosis 1+ 12/18/16 06:30 RBC Morph Micro Appear ABNORMAL (NORMAL) 12/18/16 06:30 PT 12.2 SECONDS (9.5-11.5) H 12/16/16 18:10 INR 1.16 (0.5-1.4) 12/16/16 18:10 Sodium 148 mEq/L (136-145) H 12/19/16 05:15 Potassium 3.6 mEq/L (3.5-5.1) 12/19/16 05:15 Chloride 112 mEq/L (98-107) H 12/19/16 05:15 Carbon Dioxide 21.4 mEq/L (21.0-31.0) 12/19/16 05:15 Anion Gap 18.2 (7.0-16.0) H 12/19/16 05:15 BUN 86 mg/dL (7-25) H* 12/19/16 05:15 Creatinine 2.4 mg/dL (0.6-1.2) H 12/19/16 05:15 Est GFR ( Amer) 27.0 ml/min (>90) 12/19/16 05:15 Est GFR (Non-Af Amer) 22.3 ml/min 12/19/16 05:15 BUN/Creatinine Ratio 35.8 12/19/16 05:15 Glucose 38 mg/dL (70-105) L* 12/19/16 05:15 POC Glucose 81 MG/DL (70 - 105) 12/19/16 11:58 Hemoglobin A1c % 6.2 % (4.0-6.0) H 12/16/16 18:10 Calcium 8.3 mg/dL (8.6-10.3) L 12/19/16 05:15 Magnesium 2.5 mg/dL (1.9-2.7) 12/19/16 05:15 Iron 26 ug/dL (27-159) L 12/18/16 06:30 TIBC 145 ug/dL (250-450) L 12/18/16 06:30 Iron Saturation 18 % (15-55) 12/18/16 06:30 Unsaturated IBC 119 ug/dL (131-425) L 12/18/16 06:30 Total Bilirubin 0.5 mg/dL (0.3-1.0) 12/19/16 05:15 AST 16 U/L (13-39) 12/19/16 05:15 ALT 14 U/L (7-52) 12/19/16 05:15 Alkaline Phosphatase 168 U/L (34-104) H 12/19/16 05:15 Ammonia 40 umol/L (16-53) 12/18/16 06:30 Creatine Kinase 51 U/L (30-223) 12/16/16 18:10 Troponin I 0.02 ng/mL (0.01-0.05) 12/16/16 18:10 B-Natriuretic Peptide 224.0 pg/mL (5.0-100.0) H 12/18/16 06:30 Total Protein 6.2 gm/dL (6.0-8.3) 12/19/16 05:15 Albumin 2.3 gm/dL (3.7-5.3) L 12/19/16 05:15 Globulin 3.9 gm/dL 12/19/16 05:15 Albumin/Globulin Ratio 0.6 (1.0-1.8) L 12/19/16 05:15 Triglycerides 584 mg/dL (<150) H 12/16/16 18:10 Cholesterol 83 mg/dL (<200) 12/16/16 18:10 LDL Cholesterol Direct 13 mg/dL (75-193) L 12/16/16 18:10 HDL Cholesterol 3 mg/dL (23-92) L 12/16/16 18:10 TSH 2.11 uIU/ml (0.34-5.60) 12/17/16 06:12 Urine Source [place] 12/16/16 17:41 Urine Color YELLOW 12/16/16 17:41 Urine Clarity CLOUDY (CLEAR) H 12/16/16 17:41 Urine pH 7.0 12/16/16 17:41 Ur Specific [place] 1.015 (1.005-1.030) 12/16/16 17:41 Urine Protein 100 mg/dL (NEGATIVE) H 12/16/16 17:41 Urine Glucose (UA) NEGATIVE mg/dL (NEGATIVE) 12/16/16 17:41 Urine Ketones NEGATIVE mg/dL (NEGATIVE) 12/16/16 17:41 Urine Blood LARGE (NEGATIVE) H 12/16/16 17:41 Urine Nitrate NEGATIVE (NEGATIVE) 12/16/16 17:41 Urine Bilirubin NEGATIVE (NEGATIVE) 12/16/16 17:41 Urine Urobilinogen 1.0 E.U./dL (0.2 - 1.0) 12/16/16 17:41 Ur Leukocyte Esterase LARGE (NEGATIVE) H 12/16/16 17:41 Urine RBC 25-50 /hpf (0-5) H 12/16/16 17:41 Urine WBC 25-50 /hpf (0-5) H 12/16/16 17:41 Ur Epithelial Cells MODERATE /lpf (FEW) 12/16/16 17:41 Urine Bacteria MODERATE /hpf (NONE SEEN) 12/16/16 17:41 Blood Type O POSITIVE 12/18/16 15:54 Antibody Screen NEGATIVE 12/18/16 15:54 Crossmatch See Detail 12/18/16 15:54 - Physical Exam Vitals and I&O: Vital Signs Temp 99.2 F 12/19/16 08:00 Pulse 82 12/19/16 12:03 Resp 18 12/19/16 12:03 BP 107/57 12/19/16 08:00 Pulse Ox 98 12/19/16 12:03 Intake & Output 12/18/16 12/19/16 12/19/16 18:59 06:59 18:59 Intake Total 1000 1400 Output Total 1500 Balance 1000 -100 Intake: Intake, IV Amount 1000 1050 D5-0.9%Ns 1,000 ml @ 125 1000 mls/hr IV .Q8H [facility] Rx#: [id number] Levofloxacin 250mg/50mL 50 250 mg In 50 ml @ 50 mls/ hr IV Q48HR [facility] Rx#: [id number] Sodium Chloride 0.9% 1, 1000 000 ml @ 100 mls/hr IV . Q10H [facility] Rx#:[id number] Tube Feeding 350 Output: Urine 1500 Other: # Bowel Movements 1 Stool Characteristics Soft Soft Foamy Active Medications: Current Medications Acetaminophen (Tylenol 650mg/20.3ml Suspension) 650 mg GT Q4H PRN PRN Reason: MILD PAIN AND FEVER >101 Stop: 02/14/17 22:20 Last Admin: 12/19/16 12:14 Dose: 650 mg Acetylcysteine (Mucomyst 20%) 3 ml HHN Q4HRT [facility] Stop: 02/14/17 22:59 Last Admin: 12/19/16 12:03 Dose: 3 ml Albuterol Sulfate (Albuterol 2.5mg/3ml Neb Ud) 2.5 mg HHN Q4HRT [facility] Stop: 02/14/17 22:59 Last Admin: 12/19/16 12:02 Dose: 2.5 mg Atorvastatin Calcium (Lipitor) 40 mg PO HS [facility] PRN Reason: Protocol Stop: 02/15/17 20:59 Last Admin: 12/18/16 20:47 Dose: 40 mg Dextrose (D50w) 50 ml IVP PRN PRN PRN Reason: blood sugar < 60 Stop: 02/14/17 22:20 Last Admin: 12/19/16 06:06 Dose: 50 ml Diltiazem HCl (Cardizem) 20 mg IVP Q4H PRN PRN Reason: HR Greater than 130 per min Stop: 02/14/17 22:20 Folic Acid (Folate) 1 mg GT DAILY [facility] Stop: 02/15/17 08:59 Last Admin: 12/19/16 08:23 Dose: 1 mg Guaifenesin (Robitussin) 200 mg GT Q4HR PRN PRN Reason: Cough or Congestion Stop: 02/14/17 22:20 Last Admin: 12/19/16 12:14 Dose: 200 mg Dextrose/Sodium Chloride (D5-0.9%Ns) 1,000 mls @ 100 mls/hr IV .Q10H [facility] Stop: 02/17/17 14:26 Meropenem 500 mg/ Sodium (Chloride) 100 mls @ 100 mls/hr IV Q12H [facility] Stop: 02/17/17 14:28 Insulin Aspart (Novolog) 0 units SUBQ ACHS [facility] PRN Reason: Protocol Stop: 02/15/17 07:29 Last Admin: 12/19/16 11:59 Dose: Not Given Insulin Human NPH (Novolin N) 15 units SUBQ BIDAC [facility] PRN Reason: Protocol Stop: 02/17/17 15:07 Ipratropium Yoder (Atrovent Neb 0.5mg/2.5ml) 0.5 mg HHN Q4HRT [facility] Stop: 02/14/17 22:59 Last Admin: 12/19/16 12:02 Dose: 0.5 mg Lactobacillus Rhamnosus (Culturelle) 1 each PO DAILY [facility] Stop: 02/15/17 08:59 Last Admin: 12/19/16 08:23 Dose: 1 each Lactulose (Cephulac) 20 gm GT DAILY [facility] Stop: 02/15/17 08:59 Last Admin: 12/19/16 08:23 Dose: 20 gm Metoclopramide HCl (Reglan) 5 mg PO TID [facility] Stop: 02/15/17 08:59 Last Admin: 12/19/16 08:23 Dose: 5 mg Miscellaneous (Clinical Monitoring) 1 ea MC DAILY PRN PRN Reason: RENAL Stop: 02/15/17 07:55 Mupirocin (Bactroban Oint) 1 appl TP BID [facility] Stop: 02/16/17 16:59 Last Admin: 12/19/16 08:24 Dose: 1 appl Nystatin (Nystop) 100,000 units TP BID [facility] Stop: 02/15/17 08:59 Last Admin: 12/19/16 08:24 Dose: 100,000 units Ondansetron HCl (Zofran) 4 mg IV Q8H PRN PRN Reason: Nausea / Vomiting Stop: 02/14/17 22:20 Petrolatum (Zinc Oxide) 1 appl TP QSHIFT [facility] Stop: 02/15/17 07:59 Last Admin: 12/19/16 08:24 Dose: 1 appl Vitamin A (Vitamin A & D) 5 gm TP DAILY [facility] Stop: 02/15/17 08:59 Last Admin: 12/19/16 08:24 Dose: 5 gm Zinc Sulfate (Zinc Sulfate) 220 mg GT DAILY [facility] Stop: 02/15/17 08:59 Last Admin: 12/19/16 08:23 Dose: 220 mg General: demented HEENT: NC/AT, PERRLA Neck: Supple, No JVD Lungs: congested, rales, ronchi Cardiovascular: RRR, Normal S1, Normal S2 Abdomen: soft non-tender, globular, +GT Extremities: excoriation, contracture Neurological: no change, unable to follow command - Procedures Procedures: Procedures Procedure Code Date BLOOD TRANSFUSION SERVICE 94907 12/16/16 BYPASS DESCENDING COLON TO CUTANEOUS, OPEN APPROACH [id number] 09/21/16 CHANGE FEEDING DEVICE IN UP INTEST TRACT, PRIMARY [employer] 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 TEACHER APPROACH [id number] 09/21/16 CHANGE GASTROSTOMY TUBE 37111 09/21/16 COLOSTOMY 51781 09/21/16 AGNIESZKA BONE 20 SQ CM/< 92689 01/28/15 DIAGNOSTIC COLONOSCOPY 71899 03/06/16 EGD BIOPSY SINGLE/MULTIPLE 67622 03/06/16 EXCISION OF DESCENDING COLON, OPEN APPROACH [id number] 09/21/16 EXCISION OF DUODENUM, ENDO, DIAGN [id number] 03/06/16 EXCISION OF SACRUM, OPEN APPROACH [id number] 09/21/16 EXCISION OF STOMACH, ENDO, DIAGN [id number] 03/06/16 IMMOBILIZ/WOUND ATTN NEC 93.59 01/28/15 INSERT INDWELLING CATH 57.94 10/18/05 INSERT TEMP BLADDER CATH 08966 10/18/05 INSERTION OF INFUSION DEV INTO SUP VENA CAVA, PERC APPROACH [id number] 09/21/16 INSPECTION OF LOWER INTESTINAL TRACT, ENDO [id number] 03/06/16 INSPECTION OF UPPER INTESTINAL TRACT, ENDO [id number] 10/27/15 LOC EXC BONE LESION NEC 77.69 01/28/15 PACKED CELL TRANSFUSION 99.04 10/20/14 REMOVAL OF PRESSURE SORE 88299 09/21/16 REPLACE GASTROSTOMY TUBE 97.02 06/09/14 RESPIRATORY VENTILATION, 24-96 CONSECUTIVE HOURS [id number] 09/21/16 TRANSFUSE NONAUT RED BLOOD CELLS IN PERIPH VEIN, PERC 17299W7 12/16/16 VENT MGMT INPAT IN DAY 16616 09/21/16 Internal Medicine Assmt/Plan - Assessment Assessment: Acute urinary tract infection, sepsis, acute renal failure, severe anemia, hyponatremia, hyperkalemia, diabetes, uncontrolled, mental retardation, hiatal hernia, status post PEG, decubitus ulceration. - Plan Plan: cont on iv abx merrem will transfuse rbc will refer to gi will follow up cx amandeep rn see orders Nutritional Asmnt/Malnutr-PDOC - Dietary Evaluation Malnutrition Findings (Please click <Entered> for more info): Nutritional Asmnt/Malnutrition Start: 12/17/16 11: 11 Text: Status: Complete Freq: Document 12/17/16 12:02 GSUN (Rec: 12/17/16 12:27 SANTINO [email or web address]) Nutritional Asmnt/Malnutrition Patient General Information Nutritional Screening High Risk Screening Diagnosis ER: ESRD, renal failure, anemia, UTI, urosepsis Pertinent Medical Hx/Surgical Hx ER: HTN, DMn CAD, dyslipidemia , ESRD, arthritis, dementia, PEG Subjective Information 56 year old female from [facility]. Pt was moving head, making nonsensical noises during visit. Severe muscle/fat wasting to lower extremities due to bedbound, otherwise no significant muscle/fat noted elewhere. Obtained CBW 80.1lb via bedscale with [address] [facility] and obtained height and UBW 75.2lb in November 2016. Estimated nutritional needs calculations based on IBW, BMI <18.5. Observed Diabetisource infusing as ordered during visit. Pt toelrating tube feeding well per RN notes. Current Diet Order/ Nutrition Support Diabetisource 65ml/hr x 20hrs, providing 1560kcal and 78g protein Pertinent Medications Lipitor, D50w, D5 0.9, Folate, Novolog, Novolin, Culturelle, Reglan, Zofran, Zinc Oxide, Vitamin A&D, Zinc Sulfate Pertinent Labs 12/16: A1c 6.2H 12/17: potassium 3.3L, BUN 117H , creaitnine 3H, glucose 332H Nutritional Hx/Data Height 1.45 m Height (Calculated Centimeters) 144.8 Current Weight (lbs) 36.333 kg Weight (Calculated Kilograms) 36.3 Weight (Calculated Grams) 22448.7 Usual body Weight (lbs) 75 [place] Body Weight 92.5 Weight Status Underweight GI Symptoms Cultural/Ethnic/Worship Belief [place] Care: Diabetisource 65ml/hr x 20hrs, providing 1560kcal and 78g protein. Water flush 250ml q6hrs. Skin Integrity/Comment: [place] 12. Per chart, full thickness pressure ulcer to buttocks. Estimated Nutritional Goals Calories/Kcals/Kg IBW 92.5lb/42kg Kcals Calculated 1260-1740kcal (30-35kcal/kg) Protein g/kg: IBW Protein Calculated 50-63g (1.2-1.5g/kg) Fluid: ml Per MD (dx. ESRD) Nutritional Problem 2. Problem Problem Impaired nutrient utilization related to Etiology ER: ESRD, chart: CKD aeb Signs/Symptoms: BUN 119, creatinine 3.1 1. Problem Problem Increased kcal and prot needs related to Etiology hypermetabolic state aeb Signs/Symptoms: full thickness pressure ulcer to buttocks, urosepsis Intervention/Recommendation Comments 1. Recommend decreasing tube feeding rate to Diabetisource 55ml/hr x 20hrs, providing 1320kcal and 66g protein. Calculations based on IBW with consideration of renal dysfunction, full thickness pressure ulcer to buttocks, and DM. 2. Recommend discontinuing zinc supplement to prevent zinc toxicity as pt is receiving adequate zinc from tube feeding. 3. Pt is receiving adequate vitamin C from tube feeding for wound healing. 4. RD called [facility] and obtained UBW in November 2016 to be 75.2lb. Bedscale today CBW 80.1lb with 2 pillows removed . Expected Outcomes/Goals Expected Outcomes/Goals 1. Pt to meet 100% of estimated nutritional needs.
[2016-12-19] MEDS: Meropenem 500 MG in Sodium Chloride 0.9% 100 ML IV SCH (15:14)
[2016-12-20] MEDS: Albuterol Nebulizer 2.5mg/3mL HHN SCH ×6 (02:49→23:34)
[2016-12-20] MEDS: Ipratropium Neb 0.5 mg/2.5 mL UD HHN SCH ×6 (02:49→23:35)
[2016-12-20] MEDS: Meropenem 500 MG in Sodium Chloride 0.9% 100 ML IV SCH ×2 (02:55→13:35)
[2016-12-20] MEDS: D5-0.9%NS 1,000 ML IV SCH ×2 (02:55→13:00)
[2016-12-20] MEDS: INSULIN HUMAN ISOPHANE (NPH) 100 UNITS/ML SUBQ SCH ×2 (06:34→17:16)
[2016-12-20] MEDS: INSULIN ASPART, RECOMBINANT 100 UNITS/ML SUBQ SCH (06:35)
[2016-12-20 06:41] LABS: HEMOGLOBIN 10.6 gm/dL (11.7-15.5); MEAN CELL VOLUME 84.8 fl (81-100); MEAN CORPUSCULAR HEMOGLOBIN 28.5 pg (27.0-31.0); MEAN CORPUSCULAR HGB CONC 33.6 pg (28.0-36.0); MEAN PLATELET VOLUME 9.3 fl; RED BLOOD COUNT 3.73 Mil/cmm (3.80-5.10); RED CELL DISTRIBUTION WIDTH 16.7 % (11.5-20.0)
[2016-12-20 06:43] LABS: ANION GAP 13.4 (7.0-16.0); BUN/CREATININE RATIO 33.1; CALCIUM SERUM 7.7 mg/dL (8.6-10.3); CARBON DIOXIDE 16.9 mEq/L (21.0-31.0); CREATININE - SERUM 2.6 mg/dL (0.6-1.2); POTASSIUM SERUM 3.3 mEq/L (3.5-5.1)
[2016-12-20 06:54] LABS: HEMATOCRIT 31.6 % (35.0-45.0); PLATELET COUNT 86 Th/cmm (150-400); WHITE BLOOD COUNT 33.9 Th/cmm (4.8-10.8)
[2016-12-20] MEDS: NYSTATIN 100000 UNITS/GM POWD TP SCH ×2 (08:42→17:15)
[2016-12-20] MEDS: Lactobacillus Rhamnosus 10 Billion CFU Capsule PO SCH (08:43)
[2016-12-20] MEDS: Lactulose 10 Gm/15 mL 30mL UDC GT SCH (08:43)
[2016-12-20] MEDS: Zinc Oxide Ointment 60 gm TP SCH ×2 (08:46→21:12)
[2016-12-20] MEDS: Vitamin A/Vitamin D 5 gm Packet TP SCH (08:54)
[2016-12-20 08:58] LABS: BAND NEUTROPHILE 18 % (0-10); METAMYELOCYTE 4 % (0-0); NEUTROPHILS 73 % (40-80); PLATELET ESTIMATE DECREASED PLATELETS (NORMAL); PLATELET MORPHOLOGY GIANT PLATELETS SEEN (NORMAL); TOTAL CELLS COUNTED 100
[2016-12-20] MEDS: INSULIN ASPART SLIDING SCALE 100 UNITS/ML UNIT SUBQ SCH ×2 (13:00→17:22)
--- NOTE | 2016-12-20 14:07 | Internal Medicine Prog Note ---
Internal Medicine Subjective - Subjective Patient seen and examined:: with staff, chart reviewed Patient is:: asleep, non-verbal, non-interactive Per staff patient is:: no adverse event, noncompliant, confused Internal Medicine Objective - Results Result Diagrams: 12/20/16 06:36 12/20/16 05:40 Recent Labs: Laboratory Last Values WBC 33.9 Th/cmm (4.8-10.8) H* D 12/20/16 06:36 RBC 3.73 Mil/cmm (3.80-5.10) L 12/20/16 06:36 Hgb 10.6 gm/dL (11.7-15.5) L 12/20/16 06:36 Hct 31.6 % (35.0-45.0) L D 12/20/16 06:36 MCV 84.8 fl (81-100) 12/20/16 06:36 MCH 28.5 pg (27.0-31.0) 12/20/16 06:36 MCHC Differential 33.6 pg (28.0-36.0) 12/20/16 06:36 RDW 16.7 % (11.5-20.0) 12/20/16 06:36 Plt Count 86 Th/cmm (150-400) L D 12/20/16 06:36 MPV 9.3 fl 12/20/16 06:36 Neutrophils % 80.1 % (40.0-80.0) H 12/16/16 18:10 Band Neutrophils % 18 % (0-10) H 12/20/16 06:36 Lymphocytes % 5.6 % (20.0-50.0) L 12/16/16 18:10 Monocytes % 11.6 % (2.0-10.0) H 12/16/16 18:10 Eosinophils % 2.4 % (0.0-5.0) 12/16/16 18:10 Basophils % 0.3 % (0.0-2.0) 12/16/16 18:10 Neutrophils (Manual) 73 % (40-80) 12/20/16 06:36 Lymphocytes 3 % (20-50) L 12/20/16 06:36 Monocytes 2 % (2-10) 12/20/16 06:36 Eosinophils 2 % (0-5) 12/19/16 05:15 Metamyelocytes 4 % (0-0) H 12/20/16 06:36 Nucleated RBCs 1.0 % (0-0) H 12/19/16 05:15 Platelet Estimate DECREASED PLATELETS (NORMAL) 12/20/16 06:36 Platelet Morphology GIANT PLATELETS SEEN (NORMAL) 12/20/16 06:36 Anisocytosis 1+ 12/18/16 06:30 RBC Morph Micro Appear NORMAL (NORMAL) 12/20/16 06:36 PT 12.2 SECONDS (9.5-11.5) H 12/16/16 18:10 INR 1.16 (0.5-1.4) 12/16/16 18:10 Sodium 140 mEq/L (136-145) 12/20/16 05:40 Potassium 3.3 mEq/L (3.5-5.1) L 12/20/16 05:40 Chloride 113 mEq/L (98-107) H 12/20/16 05:40 Carbon Dioxide 16.9 mEq/L (21.0-31.0) L 12/20/16 05:40 Anion Gap 13.4 (7.0-16.0) 12/20/16 05:40 BUN 86 mg/dL (7-25) H* 12/20/16 05:40 Creatinine 2.6 mg/dL (0.6-1.2) H 12/20/16 05:40 Est GFR ( Amer) 24.6 ml/min (>90) 12/20/16 05:40 Est GFR (Non-Af Amer) 20.3 ml/min 12/20/16 05:40 BUN/Creatinine Ratio 33.1 12/20/16 05:40 Glucose 358 mg/dL (70-105) H 12/20/16 05:40 POC Glucose 285 MG/DL (70 - 105) H 12/20/16 05:47 Hemoglobin A1c % 6.2 % (4.0-6.0) H 12/16/16 18:10 Calcium 7.7 mg/dL (8.6-10.3) L 12/20/16 05:40 Magnesium 2.5 mg/dL (1.9-2.7) 12/19/16 05:15 Iron 26 ug/dL (27-159) L 12/18/16 06:30 TIBC 145 ug/dL (250-450) L 12/18/16 06:30 Iron Saturation 18 % (15-55) 12/18/16 06:30 Unsaturated IBC 119 ug/dL (131-425) L 12/18/16 06:30 Total Bilirubin 0.5 mg/dL (0.3-1.0) 12/19/16 05:15 AST 16 U/L (13-39) 12/19/16 05:15 ALT 14 U/L (7-52) 12/19/16 05:15 Alkaline Phosphatase 168 U/L (34-104) H 12/19/16 05:15 Ammonia 40 umol/L (16-53) 12/18/16 06:30 Creatine Kinase 51 U/L (30-223) 12/16/16 18:10 Troponin I 0.02 ng/mL (0.01-0.05) 12/16/16 18:10 B-Natriuretic Peptide 224.0 pg/mL (5.0-100.0) H 12/18/16 06:30 Total Protein 6.2 gm/dL (6.0-8.3) 12/19/16 05:15 Albumin 2.3 gm/dL (3.7-5.3) L 12/19/16 05:15 Globulin 3.9 gm/dL 12/19/16 05:15 Albumin/Globulin Ratio 0.6 (1.0-1.8) L 12/19/16 05:15 Triglycerides 584 mg/dL (<150) H 12/16/16 18:10 Cholesterol 83 mg/dL (<200) 12/16/16 18:10 LDL Cholesterol Direct 13 mg/dL (75-193) L 12/16/16 18:10 HDL Cholesterol 3 mg/dL (23-92) L 12/16/16 18:10 TSH 2.11 uIU/ml (0.34-5.60) 12/17/16 06:12 Urine Source [place] 12/16/16 17:41 Urine Color YELLOW 12/16/16 17:41 Urine Clarity CLOUDY (CLEAR) H 12/16/16 17:41 Urine pH 7.0 12/16/16 17:41 Ur Specific [place] 1.015 (1.005-1.030) 12/16/16 17:41 Urine Protein 100 mg/dL (NEGATIVE) H 12/16/16 17:41 Urine Glucose (UA) NEGATIVE mg/dL (NEGATIVE) 12/16/16 17:41 Urine Ketones NEGATIVE mg/dL (NEGATIVE) 12/16/16 17:41 Urine Blood LARGE (NEGATIVE) H 12/16/16 17:41 Urine Nitrate NEGATIVE (NEGATIVE) 12/16/16 17:41 Urine Bilirubin NEGATIVE (NEGATIVE) 12/16/16 17:41 Urine Urobilinogen 1.0 E.U./dL (0.2 - 1.0) 12/16/16 17:41 Ur Leukocyte Esterase LARGE (NEGATIVE) H 12/16/16 17:41 Urine RBC 25-50 /hpf (0-5) H 12/16/16 17:41 Urine WBC 25-50 /hpf (0-5) H 12/16/16 17:41 Ur Epithelial Cells MODERATE /lpf (FEW) 12/16/16 17:41 Urine Bacteria MODERATE /hpf (NONE SEEN) 12/16/16 17:41 Blood Type O POSITIVE 12/18/16 15:54 Antibody Screen NEGATIVE 12/18/16 15:54 Crossmatch See Detail 12/18/16 15:54 - Physical Exam Vitals and I&O: Vital Signs Temp 97.5 F 12/20/16 12:00 Pulse 110 12/20/16 12:00 Resp 18 12/20/16 12:00 BP 93/48 12/20/16 12:00 Pulse Ox 94 12/20/16 12:00 Intake & Output 12/19/16 12/20/16 12/20/16 18:59 06:59 18:59 Intake Total 325 1185 1000 Output Total 450 Balance 162 493 9065 Weight (lbs) 35.199 kg Intake: Intake, IV Amount 147 449 8988 D5-0.9%Ns 1,000 ml @ 100 045 781 3753 mls/hr IV .Q10H [facility] Rx#: [id number] Meropenem 500 mg In 100 100 Sodium Chloride 0.9% 100 ml @ 100 mls/hr IV Q12H [facility] Rx#:[id number] Oral 0 Tube Feeding 210 Other 100 Output: Urine 200 Other 250 Other: Stool Characteristics Soft Brown Soft Active Medications: Current Medications Acetaminophen (Tylenol 650mg/20.3ml Suspension) 650 mg GT Q4H PRN PRN Reason: MILD PAIN AND FEVER >101 Stop: 02/14/17 22:20 Last Admin: 12/20/16 08:42 Dose: 650 mg Acetylcysteine (Mucomyst 20%) 3 ml HHN Q4HRT [facility] Stop: 02/14/17 22:59 Last Admin: 12/20/16 11:36 Dose: 3 ml Albuterol Sulfate (Albuterol 2.5mg/3ml Neb Ud) 2.5 mg HHN Q4HRT [facility] Stop: 02/14/17 22:59 Last Admin: 12/20/16 11:36 Dose: 2.5 mg Atorvastatin Calcium (Lipitor) 40 mg PO HS [facility] PRN Reason: Protocol Stop: 02/15/17 20:59 Last Admin: 12/19/16 21:35 Dose: 40 mg Dextrose (D50w) 50 ml IVP PRN PRN PRN Reason: blood sugar < 60 Stop: 02/14/17 22:20 Last Admin: 12/19/16 06:06 Dose: 50 ml Diltiazem HCl (Cardizem) 20 mg IVP Q4H PRN PRN Reason: HR Greater than 130 per min Stop: 02/14/17 22:20 Folic Acid (Folate) 1 mg GT DAILY [facility] Stop: 02/15/17 08:59 Last Admin: 12/20/16 08:43 Dose: 1 mg Guaifenesin (Robitussin) 200 mg GT Q4HR PRN PRN Reason: Cough or Congestion Stop: 02/14/17 22:20 Last Admin: 12/19/16 12:14 Dose: 200 mg Dextrose/Sodium Chloride (D5-0.9%Ns) 1,000 mls @ 100 mls/hr IV .Q10H [facility] Stop: 02/17/17 14:26 Last Admin: 12/20/16 13:00 Dose: 100 mls/hr Meropenem 500 mg/ Sodium (Chloride) 100 mls @ 100 mls/hr IV Q12H [facility] Stop: 02/17/17 14:28 Last Admin: 12/20/16 13:35 Dose: 100 mls/hr Insulin Aspart (Novolog Insulin Sliding Scale) 0 units SUBQ Q6HR [facility] PRN Reason: Protocol Stop: 02/18/17 11:59 Last Admin: 12/20/16 13:00 Dose: 8 units Insulin Human NPH (Novolin N) 15 units SUBQ BIDAC [facility] PRN Reason: Protocol Stop: 02/17/17 15:07 Last Admin: 12/20/16 06:34 Dose: 15 units Ipratropium [place] (Atrovent Neb 0.5mg/2.5ml) 0.5 mg HHN Q4HRT [facility] Stop: 02/14/17 22:59 Last Admin: 12/20/16 11:36 Dose: 0.5 mg Lactobacillus Rhamnosus (Culturelle) 1 each PO DAILY [facility] Stop: 02/15/17 08:59 Last Admin: 12/20/16 08:43 Dose: 1 each Lactulose (Cephulac) 20 gm GT DAILY [facility] Stop: 02/15/17 08:59 Last Admin: 12/20/16 08:43 Dose: 20 gm Metoclopramide HCl (Reglan) 5 mg PO TID [facility] Stop: 02/15/17 08:59 Last Admin: 12/20/16 08:43 Dose: 5 mg Miscellaneous (Clinical Monitoring) 1 ea MC DAILY PRN PRN Reason: RENAL Stop: 02/15/17 07:55 Mupirocin (Bactroban Oint) 1 appl TP BID [facility] Stop: 02/16/17 16:59 Last Admin: 12/20/16 08:42 Dose: 1 appl Nystatin (Nystop) 100,000 units TP BID [facility] Stop: 02/15/17 08:59 Last Admin: 12/20/16 08:42 Dose: 100,000 units Ondansetron HCl (Zofran) 4 mg IV Q8H PRN PRN Reason: Nausea / Vomiting Stop: 02/14/17 22:20 Petrolatum (Zinc Oxide) 1 appl TP QSHIFT [facility] Stop: 02/15/17 07:59 Last Admin: 12/20/16 08:46 Dose: 1 appl Vitamin A (Vitamin A & D) 5 gm TP DAILY [facility] Stop: 02/15/17 08:59 Last Admin: 12/20/16 08:54 Dose: 5 gm Zinc Sulfate (Zinc Sulfate) 220 mg GT DAILY [facility] Stop: 02/15/17 08:59 Last Admin: 12/20/16 08:43 Dose: 220 mg General: demented HEENT: NC/AT, PERRLA Neck: Supple, No JVD Lungs: congested, rales, ronchi Cardiovascular: RRR, Normal S1, Normal S2 Abdomen: soft non-tender, globular, distended Extremities: excoriation, contracture Neurological: no change - Procedures Procedures: Procedures Procedure Code Date BLOOD TRANSFUSION SERVICE 43947 12/16/16 BYPASS DESCENDING COLON TO CUTANEOUS, OPEN APPROACH 5N5H0X3 09/21/16 CHANGE FEEDING DEVICE IN UP INTEST TRACT, RUBBER COVERING MACHINE OPERATOR APPROACH [id number] 09/21/16 CHANGE GASTROSTOMY TUBE 52025 09/21/16 COLOSTOMY 91910 09/21/16 AGNIESZKA BONE 20 SQ CM/< 99356 01/28/15 DIAGNOSTIC COLONOSCOPY 48559 03/06/16 EGD BIOPSY SINGLE/MULTIPLE 38611 03/06/16 EXCISION OF DESCENDING COLON, OPEN APPROACH [id number] 09/21/16 EXCISION OF DUODENUM, ENDO, DIAGN [id number] 03/06/16 EXCISION OF SACRUM, OPEN APPROACH [id number] 09/21/16 EXCISION OF STOMACH, ENDO, DIAGN 4HV99KG 03/06/16 IMMOBILIZ/WOUND ATTN NEC 93.59 01/28/15 INSERT INDWELLING CATH 57.94 10/18/05 INSERT TEMP BLADDER CATH 03573 10/18/05 INSERTION OF INFUSION DEV INTO SUP VENA CAVA, PERC APPROACH [id number] 09/21/16 INSPECTION OF LOWER INTESTINAL TRACT, ENDO [id number] 03/06/16 INSPECTION OF UPPER INTESTINAL TRACT, ENDO [id number] 10/27/15 LOC EXC BONE LESION NEC 77.69 01/28/15 PACKED CELL TRANSFUSION 99.04 10/20/14 REMOVAL OF PRESSURE SORE 99458 09/21/16 REPLACE GASTROSTOMY TUBE 97.02 06/09/14 RESPIRATORY VENTILATION, 24-96 CONSECUTIVE HOURS [id number] 09/21/16 TRANSFUSE NONAUT RED BLOOD CELLS IN PERIPH VEIN, PERC [id number] 12/16/16 VENT MGMT INPAT INIT DAY 08845 09/21/16 Internal Medicine Assmt/Plan - Assessment Assessment: g neg bacteremia Acute urinary tract infection, sepsis, acute renal failure, severe anemia, hyponatremia, hyperkalemia, diabetes, uncontrolled, mental retardation, hiatal hernia, status post PEG, decubitus ulceration. - Plan Plan: cont on iv abx merrem will transfuse rbc will refer to gi will follow up cx dw rn see orders Nutritional Asmnt/Malnutr-PDOC - Dietary Evaluation Malnutrition Findings (Please click <Entered> for more info): Nutritional Asmnt/Malnutrition Start: 12/17/16 11: 11 Text: Status: Complete Freq: Document 12/17/16 12:02 [email or web address] (Rec: 12/17/16 12:27 [id number]) Nutritional Asmnt/Malnutrition Patient General Information Nutritional Screening High Risk Screening Diagnosis ER: ESRD, renal failure, anemia, UTI, urosepsis Pertinent Medical Hx/Surgical Hx ER: HTN, DMn CAD, dyslipidemia , ESRD, arthritis, dementia, PEG Subjective Information 56 year old female from SNF. Pt was moving head, making nonsensical noises during visit. Severe muscle/fat wasting to lower extremities due to bedbound, otherwise no significant muscle/fat noted elewhere. Obtained CBW 80.1lb via bedscale with [address] called [facility] and obtained height and UBW 75.2lb in November 2016. Estimated nutritional needs calculations based on IBW, BMI <18.5. Observed Diabetisource infusing as ordered during visit. Pt toelrating tube feeding well per RN notes. Current Diet Order/ Nutrition Support Diabetisource 65ml/hr x 20hrs, providing 1560kcal and 78g protein Pertinent Medications Lipitor, D50w, D5 0.9, Folate, Novolog, Novolin, Culturelle, Reglan, Zofran, Zinc Oxide, Vitamin A&D, Zinc Sulfate Pertinent Labs 12/16: A1c 6.2H 12/17: potassium 3.3L, BUN 117H , creaitnine 3H, glucose 332H Nutritional Hx/Data Height 1.45 m Height (Calculated Centimeters) 144.8 Current Weight (lbs) 36.333 kg Weight (Calculated Kilograms) 36.3 Weight (Calculated Grams) 68396.7 Usual body Weight (lbs) 75 [place] Body Weight 92.5 Weight Status Underweight GI Symptoms Cultural/Ethnic/Synagogue Belief [place] Care: Diabetisource 65ml/hr x 20hrs, providing 1560kcal and 78g protein. Water flush 250ml q6hrs. Skin Integrity/Comment: [place] 12. Per chart, full thickness pressure ulcer to buttocks. Estimated Nutritional Goals Calories/Kcals/Kg IBW 92.5lb/42kg Kcals Calculated 1260-1740kcal (30-35kcal/kg) Protein g/kg: IBW Protein Calculated 50-63g (1.2-1.5g/kg) Fluid: ml Per MD (dx. ESRD) Nutritional Problem 2. Problem Problem Impaired nutrient utilization related to Etiology ER: ESRD, chart: CKD aeb Signs/Symptoms: BUN 119, creatinine 3.1 1. Problem Problem Increased kcal and prot needs related to Etiology hypermetabolic state aeb Signs/Symptoms: full thickness pressure ulcer to buttocks, urosepsis Intervention/Recommendation Comments 1. Recommend decreasing tube feeding rate to Diabetisource 55ml/hr x 20hrs, providing 1320kcal and 66g protein. Calculations based on IBW with consideration of renal dysfunction, full thickness pressure ulcer to buttocks, and DM. 2. Recommend discontinuing zinc supplement to prevent zinc toxicity as pt is receiving adequate zinc from tube feeding. 3. Pt is receiving adequate vitamin C from tube feeding for wound healing. 4. RD called [facility] and obtained UBW in November 2016 to be 75.2lb. Bedscale today CBW 80.1lb with 2 pillows removed . Expected Outcomes/Goals Expected Outcomes/Goals 1. Pt to meet 100% of estimated nutritional needs.
[2016-12-21] MEDS: INSULIN ASPART SLIDING SCALE 100 UNITS/ML UNIT SUBQ SCH ×4 (00:26→18:25)
[2016-12-21] MEDS: D5-0.9%NS 1,000 ML IV SCH ×2 (01:28→13:13)
[2016-12-21] MEDS: Meropenem 500 MG in Sodium Chloride 0.9% 100 ML IV SCH ×2 (02:14→14:30)
[2016-12-21] MEDS: Albuterol Nebulizer 2.5mg/3mL HHN SCH ×7 (02:54→22:30)
[2016-12-21] MEDS: Ipratropium Neb 0.5 mg/2.5 mL UD HHN SCH ×5 (02:55→19:03)
[2016-12-21 06:08] LABS: HEMATOCRIT 31.4 % (35.0-45.0); HEMOGLOBIN 10.6 gm/dL (11.7-15.5); MEAN CORPUSCULAR HEMOGLOBIN 28.3 pg (27.0-31.0); MEAN CORPUSCULAR HGB CONC 33.7 pg (28.0-36.0); MEAN PLATELET VOLUME 9.6 fl; RED BLOOD COUNT 3.74 Mil/cmm (3.80-5.10); RED CELL DISTRIBUTION WIDTH 16.8 % (11.5-20.0)
[2016-12-21 06:23] LABS: PLATELET COUNT 106 Th/cmm (150-400); WHITE BLOOD COUNT 28.3 Th/cmm (4.8-10.8)
[2016-12-21 06:37] LABS: ALB/GLOB RATIO 0.5 (1.0-1.8); ANION GAP 12.7 (7.0-16.0); BILIRUBIN,TOTAL 0.2 mg/dL (0.3-1.0); BUN/CREATININE RATIO 32.5; CALCIUM SERUM 7.5 mg/dL (8.6-10.3); CARBON DIOXIDE 19.4 mEq/L (21.0-31.0); CREATININE - SERUM 2.4 mg/dL (0.6-1.2); MAGNESIUM 2.3 mg/dL (1.9-2.7); POTASSIUM SERUM 3.1 mEq/L (3.5-5.1)
[2016-12-21] MEDS: INSULIN HUMAN ISOPHANE (NPH) 100 UNITS/ML SUBQ SCH ×2 (06:45→18:18)
[2016-12-21 06:57] LABS: ANISOCYTOSIS 1+; BAND NEUTROPHILE 5 % (0-10); METAMYELOCYTE 1 % (0-0); NEUTROPHILS 89 % (40-80); PLATELET ESTIMATE DECREASED PLATELETS (NORMAL); PLATELET MORPHOLOGY NORMAL (NORMAL); TOTAL CELLS COUNTED 100
[2016-12-21] MEDS: Lactulose 10 Gm/15 mL 30mL UDC GT SCH (08:54)
[2016-12-21] MEDS: Lactobacillus Rhamnosus 10 Billion CFU Capsule PO SCH (08:54)
[2016-12-21] MEDS: Vitamin A/Vitamin D 5 gm Packet TP SCH (08:55)
[2016-12-21] MEDS: Zinc Oxide Ointment 60 gm TP SCH ×2 (08:55→23:30)
[2016-12-21] MEDS: NYSTATIN 100000 UNITS/GM POWD TP SCH ×2 (08:55→18:22)
[2016-12-21] MEDS ORDERED: Potassium Chloride Elixir 20 mEq /15 mL UDC GT ONE (13:29)
[2016-12-21] MEDS: Sodium Chloride 0.45% 1,000 ML IV SCH (13:35)
--- NOTE | 2016-12-21 15:06 | Internal Medicine Prog Note ---
Internal Medicine Subjective - Subjective Patient seen and examined:: with staff, chart reviewed Patient is:: awake, non-verbal, non-interactive Patient Complaints of:: congestion Per staff patient is:: no adverse event, no episodes of fall, noncompliant, confused Internal Medicine Objective - Results Result Diagrams: 12/21/16 05:45 12/21/16 05:45 Recent Labs: Laboratory Last Values WBC 28.3 Th/cmm (4.8-10.8) H* 12/21/16 05:45 RBC 3.74 Mil/cmm (3.80-5.10) L 12/21/16 05:45 Hgb 10.6 gm/dL (11.7-15.5) L 12/21/16 05:45 Hct 31.4 % (35.0-45.0) L 12/21/16 05:45 MCV 84.0 fl (81-100) 12/21/16 05:45 MCH 28.3 pg (27.0-31.0) 12/21/16 05:45 MCHC Differential 33.7 pg (28.0-36.0) 12/21/16 05:45 RDW 16.8 % (11.5-20.0) 12/21/16 05:45 Plt Count 106 Th/cmm (150-400) L D 12/21/16 05:45 MPV 9.6 fl 12/21/16 05:45 Neutrophils % 80.1 % (40.0-80.0) H 12/16/16 18:10 Band Neutrophils % 5 % (0-10) 12/21/16 05:45 Lymphocytes % 5.6 % (20.0-50.0) L 12/16/16 18:10 Monocytes % 11.6 % (2.0-10.0) H 12/16/16 18:10 Eosinophils % 2.4 % (0.0-5.0) 12/16/16 18:10 Basophils % 0.3 % (0.0-2.0) 12/16/16 18:10 Neutrophils (Manual) 89 % (40-80) H 12/21/16 05:45 Lymphocytes 3 % (20-50) L 12/21/16 05:45 Monocytes 2 % (2-10) 12/21/16 05:45 Eosinophils 2 % (0-5) 12/19/16 05:15 Metamyelocytes 1 % (0-0) H 12/21/16 05:45 Nucleated RBCs 1.0 % (0-0) H 12/19/16 05:15 Platelet Estimate DECREASED PLATELETS (NORMAL) 12/21/16 05:45 Platelet Morphology NORMAL (NORMAL) 12/21/16 05:45 Anisocytosis 1+ 12/21/16 05:45 RBC Morph Micro Appear ABNORMAL (NORMAL) 12/21/16 05:45 PT 12.2 SECONDS (9.5-11.5) H 12/16/16 18:10 INR 1.16 (0.5-1.4) 12/16/16 18:10 Sodium 148 mEq/L (136-145) H 12/21/16 05:45 Potassium 3.1 mEq/L (3.5-5.1) L 12/21/16 05:45 Chloride 119 mEq/L (98-107) H 12/21/16 05:45 Carbon Dioxide 19.4 mEq/L (21.0-31.0) L 12/21/16 05:45 Anion Gap 12.7 (7.0-16.0) 12/21/16 05:45 BUN 78 mg/dL (7-25) H 12/21/16 05:45 Creatinine 2.4 mg/dL (0.6-1.2) H 12/21/16 05:45 Est GFR ( Amer) 27.0 ml/min (>90) 12/21/16 05:45 Est GFR (Non-Af Amer) 22.3 ml/min 12/21/16 05:45 BUN/Creatinine Ratio 32.5 12/21/16 05:45 Glucose 280 mg/dL (70-105) H 12/21/16 05:45 POC Glucose 262 MG/DL (70 - 105) H 12/21/16 06:38 Hemoglobin A1c % 6.2 % (4.0-6.0) H 12/16/16 18:10 Calcium 7.5 mg/dL (8.6-10.3) L 12/21/16 05:45 Magnesium 2.3 mg/dL (1.9-2.7) 12/21/16 05:45 Iron 26 ug/dL (27-159) L 12/18/16 06:30 TIBC 145 ug/dL (250-450) L 12/18/16 06:30 Iron Saturation 18 % (15-55) 12/18/16 06:30 Unsaturated IBC 119 ug/dL (131-425) L 12/18/16 06:30 Total Bilirubin 0.2 mg/dL (0.3-1.0) L 12/21/16 05:45 AST 12 U/L (13-39) L 12/21/16 05:45 ALT 10 U/L (7-52) 12/21/16 05:45 Alkaline Phosphatase 268 U/L (34-104) H 12/21/16 05:45 Ammonia 51 umol/L (16-53) 12/21/16 05:45 Creatine Kinase 51 U/L (30-223) 12/16/16 18:10 Troponin I 0.02 ng/mL (0.01-0.05) 12/16/16 18:10 B-Natriuretic Peptide 438.0 pg/mL (5.0-100.0) H 12/21/16 05:45 Total Protein 5.1 gm/dL (6.0-8.3) L 12/21/16 05:45 Albumin 1.7 gm/dL (3.7-5.3) L 12/21/16 05:45 Globulin 3.4 gm/dL 12/21/16 05:45 Albumin/Globulin Ratio 0.5 (1.0-1.8) L 12/21/16 05:45 Triglycerides 584 mg/dL (<150) H 12/16/16 18:10 Cholesterol 83 mg/dL (<200) 12/16/16 18:10 LDL Cholesterol Direct 13 mg/dL (75-193) L 12/16/16 18:10 HDL Cholesterol 3 mg/dL (23-92) L 12/16/16 18:10 TSH 2.11 uIU/ml (0.34-5.60) 12/17/16 06:12 Urine Source [place] 12/16/16 17:41 Urine Color YELLOW 12/16/16 17:41 Urine Clarity CLOUDY (CLEAR) H 12/16/16 17:41 Urine pH 7.0 12/16/16 17:41 Ur Specific [place] 1.015 (1.005-1.030) 12/16/16 17:41 Urine Protein 100 mg/dL (NEGATIVE) H 12/16/16 17:41 Urine Glucose (UA) NEGATIVE mg/dL (NEGATIVE) 12/16/16 17:41 Urine Ketones NEGATIVE mg/dL (NEGATIVE) 12/16/16 17:41 Urine Blood LARGE (NEGATIVE) H 12/16/16 17:41 Urine Nitrate NEGATIVE (NEGATIVE) 12/16/16 17:41 Urine Bilirubin NEGATIVE (NEGATIVE) 12/16/16 17:41 Urine Urobilinogen 1.0 E.U./dL (0.2 - 1.0) 12/16/16 17:41 Ur Leukocyte Esterase LARGE (NEGATIVE) H 12/16/16 17:41 Urine RBC 25-50 /hpf (0-5) H 12/16/16 17:41 Urine WBC 25-50 /hpf (0-5) H 12/16/16 17:41 Ur Epithelial Cells MODERATE /lpf (FEW) 12/16/16 17:41 Urine Bacteria MODERATE /hpf (NONE SEEN) 12/16/16 17:41 Blood Type O POSITIVE 12/18/16 15:54 Antibody Screen NEGATIVE 12/18/16 15:54 Crossmatch See Detail 12/18/16 15:54 - Physical Exam Vitals and I&O: Vital Signs Temp 98.1 F 12/21/16 04:00 Pulse 108 12/21/16 11:39 Resp 18 12/21/16 12:00 BP 112/68 12/21/16 04:00 Pulse Ox 97 12/21/16 11:39 Intake & Output 12/20/16 12/21/16 12/21/16 18:59 06:59 18:59 Intake Total 2100 1550 1000 Output Total 351 800 Balance 5497 883 1439 Intake: Intake, IV Amount 1100 1000 1000 D5-0.9%Ns 1,000 ml @ 100 1000 1000 1000 mls/hr IV .Q10H [facility] Rx#: [id number] Meropenem 500 mg In 100 Sodium Chloride 0.9% 100 ml @ 100 mls/hr IV Q12H [facility] Rx#:[id number] Tube Feeding 600 Other 400 550 Output: Urine 350 800 Stool 1 Other: Stool Characteristics Soft Soft Soft Formed Liquid Liquid Active Medications: Current Medications Acetaminophen (Tylenol 650mg/20.3ml Suspension) 650 mg GT Q4H PRN PRN Reason: MILD PAIN AND FEVER >101 Stop: 02/14/17 22:20 Last Admin: 12/20/16 21:22 Dose: 650 mg Acetylcysteine (Mucomyst 20%) 3 ml HHN Q4HRT [facility] Stop: 02/14/17 22:59 Last Admin: 12/21/16 11:35 Dose: 3 ml Albuterol Sulfate (Albuterol 2.5mg/3ml Neb Ud) 2.5 mg HHN Q4HRT [facility] Stop: 02/14/17 22:59 Last Admin: 12/21/16 11:35 Dose: 2.5 mg Atorvastatin Calcium (Lipitor) 40 mg PO HS [facility] PRN Reason: Protocol Stop: 02/15/17 20:59 Last Admin: 12/20/16 21:11 Dose: 40 mg Dextrose (D50w) 50 ml IVP PRN PRN PRN Reason: blood sugar < 60 Stop: 02/14/17 22:20 Last Admin: 12/19/16 06:06 Dose: 50 ml Diltiazem HCl (Cardizem) 20 mg IVP Q4H PRN PRN Reason: HR Greater than 130 per min Stop: 02/14/17 22:20 Folic Acid (Folate) 1 mg GT DAILY [facility] Stop: 02/15/17 08:59 Last Admin: 12/21/16 08:54 Dose: 1 mg Guaifenesin (Robitussin) 200 mg GT Q4HR PRN PRN Reason: Cough or Congestion Stop: 02/14/17 22:20 Last Admin: 12/19/16 12:14 Dose: 200 mg Meropenem 500 mg/ Sodium (Chloride) 100 mls @ 100 mls/hr IV Q12H [facility] Stop: 02/17/17 14:28 Last Admin: 12/21/16 02:14 Dose: 100 mls/hr Sodium Chloride (Nacl 0.45%) 1,000 mls @ 60 mls/hr IV .[id number] [facility] Stop: 02/19/17 13:27 Last Admin: 12/21/16 13:35 Dose: 60 mls/hr Insulin Aspart (Novolog Insulin Sliding Scale) 0 units SUBQ Q6HR [facility] PRN Reason: Protocol Stop: 02/18/17 11:59 Last Admin: 12/21/16 12:24 Dose: 4 units Insulin Human NPH (Novolin N) 15 units SUBQ BIDAC [facility] PRN Reason: Protocol Stop: 02/17/17 15:07 Last Admin: 12/21/16 06:45 Dose: 15 units Ipratropium [place] (Atrovent Neb 0.5mg/2.5ml) 0.5 mg HHN Q4HRT [facility] Stop: 02/14/17 22:59 Last Admin: 12/21/16 11:34 Dose: 0.5 mg Lactobacillus Rhamnosus (Culturelle) 1 each PO DAILY [facility] Stop: 02/15/17 08:59 Last Admin: 12/21/16 08:54 Dose: 1 each Lactulose (Cephulac) 20 gm GT DAILY [facility] Stop: 02/15/17 08:59 Last Admin: 12/21/16 08:54 Dose: 20 gm Metoclopramide HCl (Reglan) 5 mg PO TID [facility] Stop: 02/15/17 08:59 Last Admin: 12/21/16 13:37 Dose: 5 mg Miscellaneous (Clinical Monitoring) 1 ea MC DAILY PRN PRN Reason: RENAL Stop: 02/15/17 07:55 Mupirocin (Bactroban Oint) 1 appl TP BID [facility] Stop: 02/16/17 16:59 Last Admin: 12/21/16 08:53 Dose: 1 appl Nystatin (Nystop) 100,000 units TP BID [facility] Stop: 02/15/17 08:59 Last Admin: 12/21/16 08:55 Dose: 100,000 units Ondansetron HCl (Zofran) 4 mg IV Q8H PRN PRN Reason: Nausea / Vomiting Stop: 02/14/17 22:20 Petrolatum (Zinc Oxide) 1 appl TP QSHIFT [facility] Stop: 02/15/17 07:59 Last Admin: 12/21/16 08:55 Dose: 1 appl Sodium Bicarbonate (Sodium Bicarbonate) 650 mg PO BID [facility] PRN Reason: Protocol Stop: 02/19/17 16:59 Vitamin A (Vitamin A & D) 5 gm TP DAILY [facility] Stop: 02/15/17 08:59 Last Admin: 12/21/16 08:55 Dose: 5 gm Zinc Sulfate (Zinc Sulfate) 220 mg GT DAILY [facility] Stop: 02/15/17 08:59 Last Admin: 12/21/16 08:54 Dose: 220 mg General: lethargic, demented HEENT: NC/AT, PERRLA Neck: Supple, No JVD Lungs: congested, rales, ronchi Cardiovascular: RRR, Normal S1, Normal S2 Abdomen: soft non-tender, globular, positive bowel sound Extremities: excoriation Neurological: no change, lethargic, unable to follow command - Procedures Procedures: Procedures Procedure Code Date BLOOD TRANSFUSION SERVICE 62384 12/16/16 BYPASS DESCENDING COLON TO CUTANEOUS, OPEN APPROACH [id number] 09/21/16 CHANGE FEEDING DEVICE IN UP INTEST TRACT, SERVICES PROGRAM MANAGER APPROACH [id number] 09/21/16 CHANGE GASTROSTOMY TUBE 47169 09/21/16 COLOSTOMY 48680 09/21/16 AGNIESZKA BONE 20 SQ CM/< 70531 01/28/15 DIAGNOSTIC COLONOSCOPY 20828 03/06/16 EGD BIOPSY SINGLE/MULTIPLE 04609 03/06/16 EXCISION OF DESCENDING COLON, OPEN APPROACH [id number] 09/21/16 EXCISION OF DUODENUM, ENDO, DIAGN [id number] 03/06/16 EXCISION OF SACRUM, OPEN APPROACH [id number] 09/21/16 EXCISION OF STOMACH, ENDO, DIAGN [id number] 03/06/16 IMMOBILIZ/WOUND ATTN NEC 93.59 01/28/15 INSERT INDWELLING CATH 57.94 10/18/05 INSERT TEMP BLADDER CATH 39654 10/18/05 INSERTION OF INFUSION DEV INTO SUP VENA CAVA, PERC APPROACH [id number] 09/21/16 INSPECTION OF LOWER INTESTINAL TRACT, ENDO [id number] 03/06/16 INSPECTION OF UPPER INTESTINAL TRACT, ENDO [id number] 10/27/15 LOC EXC BONE LESION NEC 77.69 01/28/15 PACKED CELL TRANSFUSION 99.04 10/20/14 REMOVAL OF PRESSURE SORE 36591 09/21/16 REPLACE GASTROSTOMY TUBE 97.02 06/09/14 RESPIRATORY VENTILATION, 24-96 CONSECUTIVE HOURS [id number] 09/21/16 TRANSFUSE NONAUT RED BLOOD CELLS IN PERIPH VEIN, PERC 29284T9 12/16/16 VENT MGMT INPAT INIT DAY 00333 09/21/16 Internal Medicine Assmt/Plan - Assessment Assessment: g neg bacteremia Acute urinary tract infection, sepsis, acute renal failure, severe anemia, hyponatremia, hyperkalemia, diabetes, uncontrolled, mental retardation, hiatal hernia, status post PEG, decubitus ulceration. - Plan Plan: cont on iv abx merrem will transfuse rbc will refer to gi will follow up cx dw rn see orders Nutritional Asmnt/Malnutr-PDOC - Dietary Evaluation Malnutrition Findings (Please click <Entered> for more info): Nutritional Asmnt/Malnutrition Start: 12/17/16 11: 11 Text: Status: Complete Freq: Document 12/17/16 12:02 GSUN (Rec: 12/17/16 12:27 GSUN [email or web address]) Nutritional Asmnt/Malnutrition Patient General Information Nutritional Screening High Risk Screening Diagnosis ER: ESRD, renal failure, anemia, UTI, urosepsis Pertinent Medical Hx/Surgical Hx ER: HTN, DMn CAD, dyslipidemia , ESRD, arthritis, dementia, PEG Subjective Information 56 year old female from [facility]. Pt was moving head, making nonsensical noises during visit. Severe muscle/fat wasting to lower extremities due to bedbound, otherwise no significant muscle/fat noted elewhere. Obtained CBW 80.1lb via bedscale with [address] called [facility] and obtained height and UBW 75.2lb in November 2016. Estimated nutritional needs calculations based on IBW, BMI <18.5. Observed Diabetisource infusing as ordered during visit. Pt toelrating tube feeding well per RN notes. Current Diet Order/ Nutrition Support Diabetisource 65ml/hr x 20hrs, providing 1560kcal and 78g protein Pertinent Medications Lipitor, D50w, D5 0.9, Folate, Novolog, Novolin, Culturelle, Reglan, Zofran, Zinc Oxide, Vitamin A&D, Zinc Sulfate Pertinent Labs 12/16: A1c 6.2H 12/17: potassium 3.3L, BUN 117H , creaitnine 3H, glucose 332H Nutritional Hx/Data Height 1.45 m Height (Calculated Centimeters) 144.8 Current Weight (lbs) 36.333 kg Weight (Calculated Kilograms) 36.3 Weight (Calculated Grams) 91992.7 Usual body Weight (lbs) 75 [place] Body Weight 92.5 Weight Status Underweight GI Symptoms Cultural/Ethnic/[employer] 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 Water flush 250ml q6hrs. Skin Integrity/Comment: [place] 12. Per chart, full thickness pressure ulcer to buttocks. Estimated Nutritional Goals Calories/Kcals/Kg IBW 92.5lb/42kg Kcals Calculated 1260-1740kcal (30-35kcal/kg) Protein g/kg: IBW Protein Calculated 50-63g (1.2-1.5g/kg) Fluid: ml Per MD (dx. ESRD) Nutritional Problem 2. Problem Problem Impaired nutrient utilization related to Etiology ER: ESRD, chart: CKD aeb Signs/Symptoms: BUN 119, creatinine 3.1 1. Problem Problem Increased kcal and prot needs related to Etiology hypermetabolic state aeb Signs/Symptoms: full thickness pressure ulcer to buttocks, urosepsis Intervention/Recommendation Comments 1. Recommend decreasing tube feeding rate to Diabetisource 55ml/hr x 20hrs, providing 1320kcal and 66g protein. Calculations based on IBW with consideration of renal dysfunction, full thickness pressure ulcer to buttocks, and DM. 2. Recommend discontinuing zinc supplement to prevent zinc toxicity as pt is receiving adequate zinc from tube feeding. 3. Pt is receiving adequate vitamin C from tube feeding for wound healing. 4. RD called [facility] and obtained UBW in November 2016 to be 75.2lb. Bedscale today CBW 80.1lb with 2 pillows removed . Expected Outcomes/Goals Expected Outcomes/Goals 1. Pt to meet 100% of estimated nutritional needs.
[2016-12-22] MEDS: INSULIN ASPART SLIDING SCALE 100 UNITS/ML UNIT SUBQ SCH ×3 (00:15→12:56)
[2016-12-22] MEDS: Meropenem 500 MG in Sodium Chloride 0.9% 100 ML IV SCH (02:24)
[2016-12-22] MEDS: Ipratropium Neb 0.5 mg/2.5 mL UD HHN SCH ×4 (02:47→15:03)
[2016-12-22] MEDS: Albuterol Nebulizer 2.5mg/3mL HHN SCH ×4 (02:47→15:03)
[2016-12-22 05:23] LABS: HEMATOCRIT 28.8 % (35.0-45.0); HEMOGLOBIN 9.6 gm/dL (11.7-15.5); MEAN CELL VOLUME 83.4 fl (81-100); MEAN CORPUSCULAR HEMOGLOBIN 27.7 pg (27.0-31.0); MEAN CORPUSCULAR HGB CONC 33.2 pg (28.0-36.0); MEAN PLATELET VOLUME 9.5 fl; PLATELET COUNT 102 Th/cmm (150-400); RED BLOOD COUNT 3.45 Mil/cmm (3.80-5.10); RED CELL DISTRIBUTION WIDTH 16.9 % (11.5-20.0)
[2016-12-22 05:32] LABS: WHITE BLOOD COUNT 17.6 Th/cmm (4.8-10.8)
[2016-12-22 05:58] LABS: ALB/GLOB RATIO 0.5 (1.0-1.8); ALKALINE PHOSPHATASE 229 U/L (34-104); BILIRUBIN,TOTAL 0.4 mg/dL (0.3-1.0); BUN - UREA NITROGEN 75 mg/dL (7-25); BUN/CREATININE RATIO 35.7; CALCIUM SERUM 7.5 mg/dL (8.6-10.3); CARBON DIOXIDE 17.8 mEq/L (21.0-31.0); CHLORIDE 123 mEq/L (98-107); CREATININE - SERUM 2.1 mg/dL (0.6-1.2); GLUCOSE 108 mg/dL (70-105); MAGNESIUM 2.2 mg/dL (1.9-2.7); POTASSIUM SERUM 4.8 mEq/L (3.5-5.1); SGOT 20 U/L (13-39); SGPT/ALT 9 U/L (7-52); SODIUM SERUM 147 mEq/L (136-145)
[2016-12-22 06:47] LABS: BAND NEUTROPHILE 6 % (0-10); EOSINOPHIL 4 % (0-5); NEUTROPHILS 84 % (40-80); PLATELET ESTIMATE DECREASED PLATELETS (NORMAL); TOTAL CELLS COUNTED 100
[2016-12-22 06:49] LABS: ANISOCYTOSIS 1+; PLATELET MORPHOLOGY GIANT PLATELETS SEEN (NORMAL)
[2016-12-22] MEDS: INSULIN HUMAN ISOPHANE (NPH) 100 UNITS/ML SUBQ SCH (07:03)
[2016-12-22] MEDS: NYSTATIN 100000 UNITS/GM POWD TP SCH (09:16)
[2016-12-22] MEDS: Vitamin A/Vitamin D 5 gm Packet TP SCH (09:16)
[2016-12-22] MEDS: Zinc Oxide Ointment 60 gm TP SCH (09:17)
[2016-12-22] MEDS: Lactobacillus Rhamnosus 10 Billion CFU Capsule PO SCH (09:18)
[2016-12-22] MEDS: Lactulose 10 Gm/15 mL 30mL UDC GT SCH (09:18)
--- NOTE | 2016-12-22 11:08 | Diagnostic Imaging Report ---
Portable chest x-ray HISTORY: Shortness of breath Compared with prior exam of December 16, 2016, the patient is markedly rotated associated with a severe scoliosis. The heart appears enlarged. Little change with poor visualization of the left lower lobe. No obvious focal processes. IMPRESSION: 1. No significant change in the cardiopulmonary status since December 16, 2016.
--- NOTE | 2016-12-22 13:01 | Internal Medicine Prog Note ---
Internal Medicine Subjective - Subjective Patient seen and examined:: with staff, chart reviewed Patient is:: awake, non-verbal, non-interactive Patient Complaints of:: congestion Per staff patient is:: no adverse event, agitated, noncompliant, confused Internal Medicine Objective - Results Result Diagrams: 12/22/16 05:10 12/22/16 05:10 Recent Labs: Laboratory Last Values WBC 17.6 Th/cmm (4.8-10.8) H D 12/22/16 05:10 RBC 3.45 Mil/cmm (3.80-5.10) L 12/22/16 05:10 Hgb 9.6 gm/dL (11.7-15.5) L 12/22/16 05:10 Hct 28.8 % (35.0-45.0) L 12/22/16 05:10 MCV 83.4 fl (81-100) 12/22/16 05:10 MCH 27.7 pg (27.0-31.0) 12/22/16 05:10 MCHC Differential 33.2 pg (28.0-36.0) 12/22/16 05:10 RDW 16.9 % (11.5-20.0) 12/22/16 05:10 Plt Count 102 Th/cmm (150-400) L 12/22/16 05:10 MPV 9.5 fl 12/22/16 05:10 Neutrophils % 80.1 % (40.0-80.0) H 12/16/16 18:10 Band Neutrophils % 6 % (0-10) 12/22/16 05:10 Lymphocytes % 5.6 % (20.0-50.0) L 12/16/16 18:10 Monocytes % 11.6 % (2.0-10.0) H 12/16/16 18:10 Eosinophils % 2.4 % (0.0-5.0) 12/16/16 18:10 Basophils % 0.3 % (0.0-2.0) 12/16/16 18:10 Neutrophils (Manual) 84 % (40-80) H 12/22/16 05:10 Lymphocytes 2 % (20-50) L 12/22/16 05:10 Monocytes 4 % (2-10) 12/22/16 05:10 Eosinophils 4 % (0-5) 12/22/16 05:10 Metamyelocytes 1 % (0-0) H 12/21/16 05:45 Nucleated RBCs 1.0 % (0-0) H 12/19/16 05:15 Platelet Estimate DECREASED PLATELETS (NORMAL) 12/22/16 05:10 Platelet Morphology GIANT PLATELETS SEEN (NORMAL) 12/22/16 05:10 Anisocytosis 1+ 12/22/16 05:10 RBC Morph Micro Appear ABNORMAL (NORMAL) 12/22/16 05:10 PT 12.2 SECONDS (9.5-11.5) H 12/16/16 18:10 INR 1.16 (0.5-1.4) 12/16/16 18:10 Sodium 147 mEq/L (136-145) H 12/22/16 05:10 Potassium 4.8 mEq/L (3.5-5.1) 12/22/16 05:10 Chloride 123 mEq/L (98-107) H 12/22/16 05:10 Carbon Dioxide 17.8 mEq/L (21.0-31.0) L 12/22/16 05:10 Anion Gap 11.0 (7.0-16.0) 12/22/16 05:10 BUN 75 mg/dL (7-25) H 12/22/16 05:10 Creatinine 2.1 mg/dL (0.6-1.2) H 12/22/16 05:10 Est GFR ( Amer) 31.4 ml/min (>90) 12/22/16 05:10 Est GFR (Non-Af Amer) 26.0 ml/min 12/22/16 05:10 BUN/Creatinine Ratio 35.7 12/22/16 05:10 Glucose 108 mg/dL (70-105) H 12/22/16 05:10 POC Glucose 75 MG/DL (70 - 105) 12/22/16 12:47 Hemoglobin A1c % 6.2 % (4.0-6.0) H 12/16/16 18:10 Calcium 7.5 mg/dL (8.6-10.3) L 12/22/16 05:10 Magnesium 2.2 mg/dL (1.9-2.7) 12/22/16 05:10 Iron 26 ug/dL (27-159) L 12/18/16 06:30 TIBC 145 ug/dL (250-450) L 12/18/16 06:30 Iron Saturation 18 % (15-55) 12/18/16 06:30 Unsaturated IBC 119 ug/dL (131-425) L 12/18/16 06:30 Total Bilirubin 0.4 mg/dL (0.3-1.0) 12/22/16 05:10 AST 20 U/L (13-39) 12/22/16 05:10 ALT 9 U/L (7-52) 12/22/16 05:10 Alkaline Phosphatase 229 U/L (34-104) H 12/22/16 05:10 Ammonia 51 umol/L (16-53) 12/21/16 05:45 Creatine Kinase 51 U/L (30-223) 12/16/16 18:10 Troponin I 0.02 ng/mL (0.01-0.05) 12/16/16 18:10 B-Natriuretic Peptide 438.0 pg/mL (5.0-100.0) H 12/21/16 05:45 Total Protein 4.7 gm/dL (6.0-8.3) L 12/22/16 05:10 Albumin < 1.5 gm/dL (3.7-5.3) L 12/22/16 05:10 Globulin 3.2 gm/dL 12/22/16 05:10 Albumin/Globulin Ratio 0.5 (1.0-1.8) L 12/22/16 05:10 Triglycerides 584 mg/dL (<150) H 12/16/16 18:10 Cholesterol 83 mg/dL (<200) 12/16/16 18:10 LDL Cholesterol Direct 13 mg/dL (75-193) L 12/16/16 18:10 HDL Cholesterol 3 mg/dL (23-92) L 12/16/16 18:10 TSH 2.11 uIU/ml (0.34-5.60) 12/17/16 06:12 Urine Source [place] 12/16/16 17:41 Urine Color YELLOW 12/16/16 17:41 Urine Clarity CLOUDY (CLEAR) H 12/16/16 17:41 Urine pH 7.0 12/16/16 17:41 Ur Specific [place] 1.015 (1.005-1.030) 12/16/16 17:41 Urine Protein 100 mg/dL (NEGATIVE) H 12/16/16 17:41 Urine Glucose (UA) NEGATIVE mg/dL (NEGATIVE) 12/16/16 17:41 Urine Ketones NEGATIVE mg/dL (NEGATIVE) 12/16/16 17:41 Urine Blood LARGE (NEGATIVE) H 12/16/16 17:41 Urine Nitrate NEGATIVE (NEGATIVE) 12/16/16 17:41 Urine Bilirubin NEGATIVE (NEGATIVE) 12/16/16 17:41 Urine Urobilinogen 1.0 E.U./dL (0.2 - 1.0) 12/16/16 17:41 Ur Leukocyte Esterase LARGE (NEGATIVE) H 12/16/16 17:41 Urine RBC 25-50 /hpf (0-5) H 12/16/16 17:41 Urine WBC 25-50 /hpf (0-5) H 12/16/16 17:41 Ur Epithelial Cells MODERATE /lpf (FEW) 12/16/16 17:41 Urine Bacteria MODERATE /hpf (NONE SEEN) 12/16/16 17:41 Blood Type O POSITIVE 12/18/16 15:54 Antibody Screen NEGATIVE 12/18/16 15:54 Crossmatch See Detail 12/18/16 15:54 - Physical Exam Vitals and I&O: Vital Signs Temp 97.3 F 12/22/16 12:27 Pulse 71 12/22/16 12:27 Resp 19 12/22/16 12:27 BP 131/61 12/22/16 12:27 Pulse Ox 97 12/22/16 12:27 Intake & Output 12/21/16 12/22/16 12/22/16 18:59 06:59 18:59 Intake Total 1200 785 Output Total 601 Balance 1200 184 Intake: Intake, IV Amount 1200 D5-0.9%Ns 1,000 ml @ 100 1000 mls/hr IV .Q10H [facility] Rx#: [id number] Meropenem 500 mg In 200 Sodium Chloride 0.9% 100 ml @ 100 mls/hr IV Q12H [facility] Rx#:[id number] Tube Feeding 385 Other 400 Output: Urine 600 Stool 1 Other: Stool Characteristics Soft Soft Liquid Active Medications: Current Medications Acetaminophen (Tylenol 650mg/20.3ml Suspension) 650 mg GT Q4H PRN PRN Reason: MILD PAIN AND FEVER >101 Stop: 02/14/17 22:20 Last Admin: 12/21/16 20:14 Dose: 650 mg Acetylcysteine (Mucomyst 20%) 3 ml HHN Q4HRT [facility] Stop: 02/14/17 22:59 Last Admin: 12/22/16 11:03 Dose: 3 ml Albuterol Sulfate (Albuterol 2.5mg/3ml Neb Ud) 2.5 mg HHN Q4HRT [facility] Stop: 02/14/17 22:59 Last Admin: 12/22/16 11:03 Dose: 2.5 mg Atorvastatin Calcium (Lipitor) 40 mg PO HS [facility] PRN Reason: Protocol Stop: 02/15/17 20:59 Last Admin: 12/21/16 20:13 Dose: 40 mg Dextrose (D50w) 50 ml IVP PRN PRN PRN Reason: blood sugar < 60 Stop: 02/14/17 22:20 Last Admin: 12/19/16 06:06 Dose: 50 ml Diltiazem HCl (Cardizem) 20 mg IVP Q4H PRN PRN Reason: HR Greater than 130 per min Stop: 02/14/17 22:20 Folic Acid (Folate) 1 mg GT DAILY [facility] Stop: 02/15/17 08:59 Last Admin: 12/22/16 09:17 Dose: 1 mg Guaifenesin (Robitussin) 200 mg GT Q4HR PRN PRN Reason: Cough or Congestion Stop: 02/14/17 22:20 Last Admin: 12/19/16 12:14 Dose: 200 mg Meropenem 500 mg/ Sodium (Chloride) 100 mls @ 100 mls/hr IV Q12H [facility] Stop: 02/17/17 14:28 Last Admin: 12/22/16 02:24 Dose: 100 mls/hr Sodium Chloride (Nacl 0.45%) 1,000 mls @ 60 mls/hr IV .[id number] [facility] Stop: 02/19/17 13:27 Last Admin: 12/21/16 13:35 Dose: 60 mls/hr Insulin Aspart (Novolog Insulin Sliding Scale) 0 units SUBQ Q6HR [facility] PRN Reason: Protocol Stop: 02/18/17 11:59 Last Admin: 12/22/16 12:56 Dose: Not Given Insulin Human NPH (Novolin N) 15 units SUBQ BIDAC [facility] PRN Reason: Protocol Stop: 02/17/17 15:07 Last Admin: 12/22/16 07:03 Dose: 15 units Ipratropium [place] (Atrovent Neb 0.5mg/2.5ml) 0.5 mg HHN Q4HRT [facility] Stop: 02/14/17 22:59 Last Admin: 12/22/16 11:03 Dose: 0.5 mg Lactobacillus Rhamnosus (Culturelle) 1 each PO DAILY [facility] Stop: 02/15/17 08:59 Last Admin: 12/22/16 09:18 Dose: 1 each Lactulose (Cephulac) 20 gm GT DAILY [facility] Stop: 02/15/17 08:59 Last Admin: 12/22/16 09:18 Dose: 20 gm Metoclopramide HCl (Reglan) 5 mg PO TID [facility] Stop: 02/15/17 08:59 Last Admin: 12/22/16 09:17 Dose: 5 mg Miscellaneous (Clinical Monitoring) 1 ea MC DAILY PRN PRN Reason: RENAL Stop: 02/15/17 07:55 Mupirocin (Bactroban Oint) 1 appl TP BID [facility] Stop: 02/16/17 16:59 Last Admin: 12/21/16 18:18 Dose: 1 appl Nystatin (Nystop) 100,000 units TP BID [facility] Stop: 02/15/17 08:59 Last Admin: 12/22/16 09:16 Dose: 100,000 units Ondansetron HCl (Zofran) 4 mg IV Q8H PRN PRN Reason: Nausea / Vomiting Stop: 02/14/17 22:20 Petrolatum (Zinc Oxide) 1 appl TP QSHIFT [facility] Stop: 02/15/17 07:59 Last Admin: 12/22/16 09:17 Dose: 1 appl Sodium Bicarbonate (Sodium Bicarbonate) 650 mg PO BID [facility] PRN Reason: Protocol Stop: 02/19/17 16:59 Last Admin: 12/22/16 09:18 Dose: 650 mg Vitamin A (Vitamin A & D) 5 gm TP DAILY [facility] Stop: 02/15/17 08:59 Last Admin: 12/22/16 09:16 Dose: 5 gm Zinc Sulfate (Zinc Sulfate) 220 mg GT DAILY [facility] Stop: 02/15/17 08:59 Last Admin: 12/22/16 09:18 Dose: 220 mg General: lethargic, demented HEENT: NC/AT, PERRLA Neck: Supple Lungs: congested, rales, ronchi Cardiovascular: RRR, Normal S1, Normal S2 Abdomen: soft non-tender, globular, positive bowel sound Extremities: excoriation, contracture Neurological: no change, lethargic, disorganized, unable to follow command - Procedures Procedures: Procedures Procedure Code Date BLOOD TRANSFUSION SERVICE 41419 12/16/16 BYPASS DESCENDING COLON TO CUTANEOUS, OPEN APPROACH [id number] 09/21/16 CHANGE FEEDING DEVICE IN UP INTEST TRACT, CHIEF LIBRARIAN CIRCULATION DEPARTMENT APPROACH [id number] 09/21/16 CHANGE GASTROSTOMY TUBE 99896 09/21/16 COLOSTOMY 19675 09/21/16 AGNIESZKA BONE 20 SQ CM/< 47546 01/28/15 DIAGNOSTIC COLONOSCOPY 89404 03/06/16 EGD BIOPSY SINGLE/MULTIPLE 96831 03/06/16 EXCISION OF DESCENDING COLON, OPEN APPROACH [id number] 09/21/16 EXCISION OF DUODENUM, ENDO, DIAGN [id number] 03/06/16 EXCISION OF SACRUM, OPEN APPROACH [id number] 09/21/16 EXCISION OF STOMACH, ENDO, DIAGN [id number] 03/06/16 IMMOBILIZ/WOUND ATTN NEC 93.59 01/28/15 INSERT INDWELLING CATH 57.94 10/18/05 INSERT TEMP BLADDER CATH 02387 10/18/05 INSERTION OF INFUSION DEV INTO SUP VENA CAVA, PERC APPROACH [id number] 09/21/16 INSPECTION OF LOWER INTESTINAL TRACT, ENDO [id number] 03/06/16 INSPECTION OF UPPER INTESTINAL TRACT, ENDO [id number] 10/27/15 LOC EXC BONE LESION NEC 77.69 01/28/15 PACKED CELL TRANSFUSION 99.04 10/20/14 REMOVAL OF PRESSURE SORE 13599 09/21/16 REPLACE GASTROSTOMY TUBE 97.02 06/09/14 RESPIRATORY VENTILATION, 24-96 CONSECUTIVE HOURS [id number] 09/21/16 TRANSFUSE NONAUT RED BLOOD CELLS IN PERIPH VEIN, PERC 22814L0 12/16/16 VENT MGMT INPAT INIT DAY 90600 09/21/16 Internal Medicine Assmt/Plan - Assessment Assessment: g neg bacteremia-e coli Acute urinary tract infection, sepsis, acute renal failure, severe anemia, hyponatremia, hyperkalemia, diabetes, uncontrolled, mental retardation, hiatal hernia, status post PEG, decubitus ulceration. - Plan Plan: cont on iv abx merrem will transfuse rbc will refer to gi will follow up cx dw rn see orders Nutritional Asmnt/Malnutr-PDOC - Dietary Evaluation Malnutrition Findings (Please click <Entered> for more info): Nutritional Asmnt/Malnutrition Start: 12/17/16 11: 11 Text: Status: Complete Freq: Document 12/17/16 12:02 GSUN (Rec: 12/17/16 12:27 GSUN [email or web address]) Nutritional Asmnt/Malnutrition Patient General Information Nutritional Screening High Risk Screening Diagnosis ER: ESRD, renal failure, anemia, UTI, urosepsis Pertinent Medical Hx/Surgical Hx ER: HTN, DMn CAD, dyslipidemia , ESRD, arthritis, dementia, PEG Subjective Information 56 year old female from [facility]. Pt was moving head, making nonsensical noises during visit. Severe muscle/fat wasting to lower extremities due to bedbound, otherwise no significant muscle/fat noted elewhere. Obtained CBW 80.1lb via bedscale with [address] called [facility] and obtained height and UBW 75.2lb in November 2016. Estimated nutritional needs calculations based on IBW, BMI <18.5. Observed Diabetisource infusing as ordered during visit. Pt toelrating tube feeding well per RN notes. Current Diet Order/ Nutrition Support Diabetisource 65ml/hr x 20hrs, providing 1560kcal and 78g protein Pertinent Medications Lipitor, D50w, D5 0.9, Folate, Novolog, Novolin, Culturelle, Reglan, Zofran, Zinc Oxide, Vitamin A&D, Zinc Sulfate Pertinent Labs 12/16: A1c 6.2H 12/17: potassium 3.3L, BUN 117H , creaitnine 3H, glucose 332H Nutritional Hx/Data Height 1.45 m Height (Calculated Centimeters) 144.8 Current Weight (lbs) 36.333 kg Weight (Calculated Kilograms) 36.3 Weight (Calculated Grams) 16150.7 Usual body Weight (lbs) 75 [place] Body Weight 92.5 Weight Status Underweight GI Symptoms Cultural/Ethnic/Mandaen Belief [place] Care: Diabetisource 65ml/hr x 20hrs, providing 1560kcal and 78g protein. Water flush 250ml q6hrs. Skin Integrity/Comment: [place] 12. Per chart, full thickness pressure ulcer to buttocks. Estimated Nutritional Goals Calories/Kcals/Kg IBW 92.5lb/42kg Kcals Calculated 1260-1740kcal (30-35kcal/kg) Protein g/kg: IBW Protein Calculated 50-63g (1.2-1.5g/kg) Fluid: ml Per MD (dx. ESRD) Nutritional Problem 2. Problem Problem Impaired nutrient utilization related to Etiology ER: ESRD, chart: CKD aeb Signs/Symptoms: BUN 119, creatinine 3.1 1. Problem Problem Increased kcal and prot needs related to Etiology hypermetabolic state aeb Signs/Symptoms: full thickness pressure ulcer to buttocks, urosepsis Intervention/Recommendation Comments 1. Recommend decreasing tube feeding rate to Diabetisource 55ml/hr x 20hrs, providing 1320kcal and 66g protein. Calculations based on IBW with consideration of renal dysfunction, full thickness pressure ulcer to buttocks, and DM. 2. Recommend discontinuing zinc supplement to prevent zinc toxicity as pt is receiving adequate zinc from tube feeding. 3. Pt is receiving adequate vitamin C from tube feeding for wound healing. 4. RD called [facility] and obtained UBW in November 2016 to be 75.2lb. Bedscale today CBW 80.1lb with 2 pillows removed . Expected Outcomes/Goals Expected Outcomes/Goals 1. Pt to meet 100% of estimated nutritional needs.
[2016-12-22] MEDS: Sodium Chloride 0.45% 1,000 ML IV SCH (13:03)
--- NOTE | 2016-12-22 13:48 | General Progress Note ---
Subjective - Review of Systems Service Date: 12/22/16 Subjective: more awake follows and focus continued tolerance to feediing improving renal fuction Objective - Results Result Diagrams: 12/22/16 05:10 12/22/16 05:10 Recent Labs: Laboratory Last Values WBC 17.6 Th/cmm (4.8-10.8) H D 12/22/16 05:10 RBC 3.45 Mil/cmm (3.80-5.10) L 12/22/16 05:10 Hgb 9.6 gm/dL (11.7-15.5) L 12/22/16 05:10 Hct 28.8 % (35.0-45.0) L 12/22/16 05:10 MCV 83.4 fl (81-100) 12/22/16 05:10 MCH 27.7 pg (27.0-31.0) 12/22/16 05:10 MCHC Differential 33.2 pg (28.0-36.0) 12/22/16 05:10 RDW 16.9 % (11.5-20.0) 12/22/16 05:10 Plt Count 102 Th/cmm (150-400) L 12/22/16 05:10 MPV 9.5 fl 12/22/16 05:10 Neutrophils % 80.1 % (40.0-80.0) H 12/16/16 18:10 Band Neutrophils % 6 % (0-10) 12/22/16 05:10 Lymphocytes % 5.6 % (20.0-50.0) L 12/16/16 18:10 Monocytes % 11.6 % (2.0-10.0) H 12/16/16 18:10 Eosinophils % 2.4 % (0.0-5.0) 12/16/16 18:10 Basophils % 0.3 % (0.0-2.0) 12/16/16 18:10 Neutrophils (Manual) 84 % (40-80) H 12/22/16 05:10 Lymphocytes 2 % (20-50) L 12/22/16 05:10 Monocytes 4 % (2-10) 12/22/16 05:10 Eosinophils 4 % (0-5) 12/22/16 05:10 Metamyelocytes 1 % (0-0) H 12/21/16 05:45 Nucleated RBCs 1.0 % (0-0) H 12/19/16 05:15 Platelet Estimate DECREASED PLATELETS (NORMAL) 12/22/16 05:10 Platelet Morphology GIANT PLATELETS SEEN (NORMAL) 12/22/16 05:10 Anisocytosis 1+ 12/22/16 05:10 RBC Morph Micro Appear ABNORMAL (NORMAL) 12/22/16 05:10 PT 12.2 SECONDS (9.5-11.5) H 12/16/16 18:10 INR 1.16 (0.5-1.4) 12/16/16 18:10 Sodium 147 mEq/L (136-145) H 12/22/16 05:10 Potassium 4.8 mEq/L (3.5-5.1) 12/22/16 05:10 Chloride 123 mEq/L (98-107) H 12/22/16 05:10 Carbon Dioxide 17.8 mEq/L (21.0-31.0) L 12/22/16 05:10 Anion Gap 11.0 (7.0-16.0) 12/22/16 05:10 BUN 75 mg/dL (7-25) H 12/22/16 05:10 Creatinine 2.1 mg/dL (0.6-1.2) H 12/22/16 05:10 Est GFR ( Amer) 31.4 ml/min (>90) 12/22/16 05:10 Est GFR (Non-Af Amer) 26.0 ml/min 12/22/16 05:10 BUN/Creatinine Ratio 35.7 12/22/16 05:10 Glucose 108 mg/dL (70-105) H 12/22/16 05:10 POC Glucose 75 MG/DL (70 - 105) 12/22/16 12:47 Hemoglobin A1c % 6.2 % (4.0-6.0) H 12/16/16 18:10 Calcium 7.5 mg/dL (8.6-10.3) L 12/22/16 05:10 Magnesium 2.2 mg/dL (1.9-2.7) 12/22/16 05:10 Iron 26 ug/dL (27-159) L 12/18/16 06:30 TIBC 145 ug/dL (250-450) L 12/18/16 06:30 Iron Saturation 18 % (15-55) 12/18/16 06:30 Unsaturated IBC 119 ug/dL (131-425) L 12/18/16 06:30 Total Bilirubin 0.4 mg/dL (0.3-1.0) 12/22/16 05:10 AST 20 U/L (13-39) 12/22/16 05:10 ALT 9 U/L (7-52) 12/22/16 05:10 Alkaline Phosphatase 229 U/L (34-104) H 12/22/16 05:10 Ammonia 51 umol/L (16-53) 12/21/16 05:45 Creatine Kinase 51 U/L (30-223) 12/16/16 18:10 Troponin I 0.02 ng/mL (0.01-0.05) 12/16/16 18:10 B-Natriuretic Peptide 438.0 pg/mL (5.0-100.0) H 12/21/16 05:45 Total Protein 4.7 gm/dL (6.0-8.3) L 12/22/16 05:10 Albumin < 1.5 gm/dL (3.7-5.3) L 12/22/16 05:10 Globulin 3.2 gm/dL 12/22/16 05:10 Albumin/Globulin Ratio 0.5 (1.0-1.8) L 12/22/16 05:10 Triglycerides 584 mg/dL (<150) H 12/16/16 18:10 Cholesterol 83 mg/dL (<200) 12/16/16 18:10 LDL Cholesterol Direct 13 mg/dL (75-193) L 12/16/16 18:10 HDL Cholesterol 3 mg/dL (23-92) L 12/16/16 18:10 TSH 2.11 uIU/ml (0.34-5.60) 12/17/16 06:12 Urine Source FROTS PORT 12/16/16 17:41 Urine Color YELLOW 12/16/16 17:41 Urine Clarity CLOUDY (CLEAR) H 12/16/16 17:41 Urine pH 7.0 12/16/16 17:41 Ur Specific [place] 1.015 (1.005-1.030) 12/16/16 17:41 Urine Protein 100 mg/dL (NEGATIVE) H 12/16/16 17:41 Urine Glucose (UA) NEGATIVE mg/dL (NEGATIVE) 12/16/16 17:41 Urine Ketones NEGATIVE mg/dL (NEGATIVE) 12/16/16 17:41 Urine Blood LARGE (NEGATIVE) H 12/16/16 17:41 Urine Nitrate NEGATIVE (NEGATIVE) 12/16/16 17:41 Urine Bilirubin NEGATIVE (NEGATIVE) 12/16/16 17:41 Urine Urobilinogen 1.0 E.U./dL (0.2 - 1.0) 12/16/16 17:41 Ur Leukocyte Esterase LARGE (NEGATIVE) H 12/16/16 17:41 Urine RBC 25-50 /hpf (0-5) H 12/16/16 17:41 Urine WBC 25-50 /hpf (0-5) H 12/16/16 17:41 Ur Epithelial Cells MODERATE /lpf (FEW) 12/16/16 17:41 Urine Bacteria MODERATE /hpf (NONE SEEN) 12/16/16 17:41 Blood Type O POSITIVE 12/18/16 15:54 Antibody Screen NEGATIVE 12/18/16 15:54 Crossmatch See Detail 12/18/16 15:54 - Physical Exam Vitals and I&O: Vital Signs Temp 97.3 F 12/22/16 12:27 Pulse 71 12/22/16 12:27 Resp 19 12/22/16 12:27 BP 131/61 12/22/16 12:27 Pulse Ox 97 12/22/16 12:27 Intake & Output 12/21/16 12/22/16 12/22/16 18:59 06:59 18:59 Intake Total 1200 1785 Output Total 601 Balance 1200 1184 Intake: Intake, IV Amount 1200 1000 D5-0.9%Ns 1,000 ml @ 100 1000 mls/hr IV .Q10H [facility] Rx#: [id number] Meropenem 500 mg In 200 Sodium Chloride 0.9% 100 ml @ 100 mls/hr IV Q12H [facility] Rx#:[id number] Sodium Chloride 0.45% 1, 1000 000 ml @ 60 mls/hr IV . [id number] [facility] Rx#:[id number] Tube Feeding 385 Other 400 Output: Urine 600 Stool 1 Other: Stool Characteristics Soft Soft Liquid Active Medications: Current Medications Acetaminophen (Tylenol 650mg/20.3ml Suspension) 650 mg GT Q4H PRN PRN Reason: MILD PAIN AND FEVER >101 Stop: 02/14/17 22:20 Last Admin: 12/21/16 20:14 Dose: 650 mg Acetylcysteine (Mucomyst 20%) 3 ml HHN Q4HRT [facility] Stop: 02/14/17 22:59 Last Admin: 12/22/16 11:03 Dose: 3 ml Albuterol Sulfate (Albuterol 2.5mg/3ml Neb Ud) 2.5 mg HHN Q4HRT [facility] Stop: 02/14/17 22:59 Last Admin: 12/22/16 11:03 Dose: 2.5 mg Atorvastatin Calcium (Lipitor) 40 mg PO HS [facility] PRN Reason: Protocol Stop: 02/15/17 20:59 Last Admin: 12/21/16 20:13 Dose: 40 mg Dextrose (D50w) 50 ml IVP PRN PRN PRN Reason: blood sugar < 60 Stop: 02/14/17 22:20 Last Admin: 12/19/16 06:06 Dose: 50 ml Diltiazem HCl (Cardizem) 20 mg IVP Q4H PRN PRN Reason: HR Greater than 130 per min Stop: 02/14/17 22:20 Folic Acid (Folate) 1 mg GT DAILY [facility] Stop: 02/15/17 08:59 Last Admin: 12/22/16 09:17 Dose: 1 mg Guaifenesin (Robitussin) 200 mg GT Q4HR PRN PRN Reason: Cough or Congestion Stop: 02/14/17 22:20 Last Admin: 12/19/16 12:14 Dose: 200 mg Meropenem 500 mg/ Sodium (Chloride) 100 mls @ 100 mls/hr IV Q12H [facility] Stop: 02/17/17 14:28 Last Admin: 12/22/16 02:24 Dose: 100 mls/hr Sodium Chloride (Nacl 0.45%) 1,000 mls @ 60 mls/hr IV .[id number] [facility] Stop: 02/19/17 13:27 Last Admin: 12/22/16 13:03 Dose: 60 mls/hr Insulin Aspart (Novolog Insulin Sliding Scale) 0 units SUBQ Q6HR [facility] PRN Reason: Protocol Stop: 02/18/17 11:59 Last Admin: 12/22/16 12:56 Dose: Not Given Insulin Human NPH (Novolin N) 15 units SUBQ BIDAC [facility] PRN Reason: Protocol Stop: 02/17/17 15:07 Last Admin: 12/22/16 07:03 Dose: 15 units Ipratropium [place] (Atrovent Neb 0.5mg/2.5ml) 0.5 mg HHN Q4HRT [facility] Stop: 02/14/17 22:59 Last Admin: 12/22/16 11:03 Dose: 0.5 mg Lactobacillus Rhamnosus (Culturelle) 1 each PO DAILY [facility] Stop: 02/15/17 08:59 Last Admin: 12/22/16 09:18 Dose: 1 each Lactulose (Cephulac) 20 gm GT DAILY [facility] Stop: 02/15/17 08:59 Last Admin: 12/22/16 09:18 Dose: 20 gm Metoclopramide HCl (Reglan) 5 mg PO TID [facility] Stop: 02/15/17 08:59 Last Admin: 12/22/16 09:17 Dose: 5 mg Miscellaneous (Clinical Monitoring) 1 ea MC DAILY PRN PRN Reason: RENAL Stop: 02/15/17 07:55 Mupirocin (Bactroban Oint) 1 appl TP BID [facility] Stop: 02/16/17 16:59 Last Admin: 12/22/16 13:04 Dose: 1 appl Nystatin (Nystop) 100,000 units TP BID [facility] Stop: 02/15/17 08:59 Last Admin: 12/22/16 09:16 Dose: 100,000 units Ondansetron HCl (Zofran) 4 mg IV Q8H PRN PRN Reason: Nausea / Vomiting Stop: 02/14/17 22:20 Petrolatum (Zinc Oxide) 1 appl TP QSHIFT [facility] Stop: 02/15/17 07:59 Last Admin: 12/22/16 09:17 Dose: 1 appl Sodium Bicarbonate (Sodium Bicarbonate) 650 mg PO BID [facility] PRN Reason: Protocol Stop: 02/19/17 16:59 Last Admin: 12/22/16 09:18 Dose: 650 mg Vitamin A (Vitamin A & D) 5 gm TP DAILY [facility] Stop: 02/15/17 08:59 Last Admin: 12/22/16 09:16 Dose: 5 gm General: Alert HEENT: Atraumatic Cardiovascular: Regular rate Abdomen: Bowel sounds (normal) Extremities: Clubbing, Other (edema) - Procedures Procedures: Procedures Procedure Code Date BLOOD TRANSFUSION SERVICE 94740 12/16/16 BYPASS DESCENDING COLON TO CUTANEOUS, OPEN APPROACH [id number] 09/21/16 CHANGE FEEDING DEVICE IN UP INTEST TRACT, BAG MACHINE OPERATOR APPROACH [id number] 09/21/16 CHANGE GASTROSTOMY TUBE 57167 09/21/16 COLOSTOMY 69851 09/21/16 AGNIESZKA BONE 20 SQ CM/< 49231 01/28/15 DIAGNOSTIC COLONOSCOPY 50882 03/06/16 EGD BIOPSY SINGLE/MULTIPLE 51599 03/06/16 EXCISION OF DESCENDING COLON, OPEN APPROACH [id number] 09/21/16 EXCISION OF DUODENUM, ENDO, DIAGN [id number] 03/06/16 EXCISION OF SACRUM, OPEN APPROACH [id number] 09/21/16 EXCISION OF STOMACH, ENDO, DIAGN [id number] 03/06/16 IMMOBILIZ/WOUND ATTN NEC 93.59 01/28/15 INSERT INDWELLING CATH 57.94 10/18/05 INSERT TEMP BLADDER CATH 03022 10/18/05 INSERTION OF INFUSION DEV INTO SUP VENA CAVA, PERC APPROACH [id number] 09/21/16 INSPECTION OF LOWER INTESTINAL TRACT, ENDO [id number] 03/06/16 INSPECTION OF UPPER INTESTINAL TRACT, ENDO [id number] 10/27/15 LOC EXC BONE LESION NEC 77.69 01/28/15 PACKED CELL TRANSFUSION 99.04 10/20/14 REMOVAL OF PRESSURE SORE 64556 09/21/16 REPLACE GASTROSTOMY TUBE 97.02 06/09/14 RESPIRATORY VENTILATION, 24-96 CONSECUTIVE HOURS [id number] 09/21/16 TRANSFUSE NONAUT RED BLOOD CELLS IN PERIPH VEIN, PERC 44413D5 12/16/16 VENT MGMT INPAT INIT DAY 67780 09/21/16 Assessment/Plan - Problem List Patient Problems: All Active Problems Anemia (Acute 03/06/16) D64.9 Dyspnea (Acute) R06.00 Fever, unspecified (Acute) R50.9 HYPOTENSION WITH TACHYCARDIA AND CONGEST (Acute) Hyperglycemia (Acute) R73.9 Hyperosmolality and/or hypernatremia (Acute) E87.0 Mental retardation (Acute) F79 Other abnormal clinical finding (Acute) R68.89 Pneumonia (Acute) J18.9 Staphylococcal sepsis (Acute) Uncontrolled diabetes mellitus (Acute) E11.65 Urinary tract infection (Acute) - Assessment Assessment: renal failure improving with feeding and hydration - Plan Plan: continue current iv 100 ccpeer hour follow chem periodically urine culture noted e coli multiple drug resistance Nutritional Asmnt/Malnutr-PDOC - Dietary Evaluation Malnutrition Findings (Please click <Entered> for more info): Nutritional Asmnt/Malnutrition Start: 12/17/16 11: 11 Text: Status: Complete Freq: Document 12/17/16 12:02 GSUN (Rec: 12/17/16 12:27 GSUN [email or web address]) Nutritional Asmnt/Malnutrition Patient General Information Nutritional Screening High Risk Screening Diagnosis ER: ESRD, renal failure, anemia, UTI, urosepsis Pertinent Medical Hx/Surgical Hx ER: HTN, DMn CAD, dyslipidemia , ESRD, arthritis, dementia, PEG Subjective Information 56 year old female from [facility]. Pt was moving head, making nonsensical noises during visit. Severe muscle/fat wasting to lower extremities due to bedbound, otherwise no significant muscle/fat noted elewhere. Obtained CBW 80.1lb via bedscale with [address] called [facility] and obtained height and UBW 75.2lb in November 2016. Estimated nutritional needs calculations based on IBW, BMI <18.5. Observed Diabetisource infusing as ordered during visit. Pt toelrating tube feeding well per RN notes. 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 Water flush 250ml q6hrs. Skin Integrity/Comment: Yink[place] 12. Per chart, full thickness pressure ulcer to buttocks. Estimated Nutritional Goals Calories/Kcals/Kg IBW 92.5lb/42kg Kcals Calculated 1260-1740kcal (30-35kcal/kg) Protein g/kg: IBW Protein Calculated 50-63g (1.2-1.5g/kg) Fluid: ml Per MD (dx. ESRD) Nutritional Problem 2. Problem Problem Impaired nutrient utilization related to Etiology ER: ESRD, chart: CKD aeb Signs/Symptoms: BUN 119, creatinine 3.1 1. Problem Problem Increased kcal and prot needs related to Etiology hypermetabolic state aeb Signs/Symptoms: full thickness pressure ulcer to buttocks, urosepsis Intervention/Recommendation Comments 1. Recommend decreasing tube feeding rate to Diabetisource 55ml/hr x 20hrs, providing 1320kcal and 66g protein. Calculations based on IBW with consideration of renal dysfunction, full thickness pressure ulcer to buttocks, and DM. 2. Recommend discontinuing zinc supplement to prevent zinc toxicity as pt is receiving adequate zinc from tube feeding. 3. Pt is receiving adequate vitamin C from tube feeding for wound healing. 4. RD called [facility] and obtained UBW in November 2016 to be 75.2lb. Bedscale today CBW 80.1lb with 2 pillows removed . Expected Outcomes/Goals Expected Outcomes/Goals 1. Pt to meet 100% of estimated nutritional needs.
--- NOTE | 2016-12-23 00:42 | Discharge Summary ---
DATE OF DISCHARGE: 12/22/2016 CHIEF COMPLAINT: Elevated BUN and creatinine and dehydration. FINAL DIAGNOSES: Escherichia coli bacteremia, Escherichia coli urinary tract infection/urosepsis, acute renal failure, severe anemia, hyponatremia, ____, diabetes, history of elevated mental retardation, hiatal hernia status post PEG, ____ ulceration. HISTORY: This is a 56-year-old female with history of mental retardation, cerebral palsy, diabetes, admitted from nursing facility secondary to elevated BUN and creatinine and severely dehydrated. The patient admitted for further management. PHYSICAL EXAMINATION: VITAL SIGNS: Blood pressure 110/64, respirations 18, pulse 80, temperature 97.3. GENERAL: Elderly female, appears her stated age. NECK: Supple. No mass. LUNGS: Equal breath sounds, few rhonchi. HEART: Regular rate and rhythm without appreciable murmur. ABDOMEN: Soft and nontender. EXTREMITIES: Positive excoriation. HOSPITAL COURSE: The patient admitted to telemetry, continued IV antibiotic on Zosyn initially then switched to Merrem. Blood culture was positive for E. coli. Urine culture was positive for E. coli and Proteus. The patient ____ for acute long-term care. CONDITION ON DISCHARGE: Fair. DISCHARGE INSTRUCTIONS: The patient to continue current regimen. The patient will be transferred to long-term acute care. JOB# [id number]
== END 2016-12-22 16:31 | DRG 871 ==
LOC: ER 17:19 → TELE 20:50
PROVIDERS: ADMIT Internal Medicine; ATTEND Internal Medicine
PROC: 30233N1 Transfusion of Nonautologous Red Blood Cells into Peripheral Vein, Percutaneous Approach (ICD-10-PCS; principal; 2016-12-18)
DX: A41.2 Sepsis due to unspecified staphylococcus (principal); N18.6 End stage renal disease; E43 Unspecified severe protein-calorie malnutrition; L89.154 Pressure ulcer of sacral region, stage 4; N17.9 Acute kidney failure, unspecified; R53.2 Functional quadriplegia; I12.0 Hypertensive chronic kidney disease with stage 5 chronic kidney disease or end stage renal disease; J18.9 Pneumonia, unspecified organism; N39.0 Urinary tract infection, site not specified; E87.1 Hypo-osmolality and hyponatremia; F03.90 Unspecified dementia, unspecified severity, without behavioral disturbance, psychotic disturbance, mood disturbance, and anxiety; M19.90 Unspecified osteoarthritis, unspecified site; E78.5 Hyperlipidemia, unspecified; I25.10 Atherosclerotic heart disease of native coronary artery without angina pectoris; G80.9 Cerebral palsy, unspecified; D64.9 Anemia, unspecified; E87.5 Hyperkalemia; E86.0 Dehydration; E11.65 Type 2 diabetes mellitus with hyperglycemia; F79 Unspecified intellectual disabilities; E11.22 Type 2 diabetes mellitus with diabetic chronic kidney disease; B96.20 Unspecified Escherichia coli [E. coli] as the cause of diseases classified elsewhere; Z83.3 Family history of diabetes mellitus; Z93.1 Gastrostomy status; Z88.8 Allergy status to other drugs, medicaments and biological substances; Z82.49 Family history of ischemic heart disease and other diseases of the circulatory system
CPT/HCPCS: 36415-UA; 71010-TC; 76770-TC; 80048-TC; 80053-TC; 80061-TC; 81001-TC; 82140-TC; 82550-TC; 82948-90; 83036-90; 83540-90; 83550-90; 83735-TC; 83880-TC; 84443-TC; 84484-TC; 85007-TC; 85025-TC; 85027-TC; 85610-TC; 86850-TC; 86900-TC; 86901-TC; 86922-TC; 87086-90; 90779; 90799; 93005; 94640; 94760; 96374; J1815; J1956; J2001; J2185; J3480; J7030; J7040; J7042; J7613; P9016; Z7610

== ENCOUNTER 2017-03-19 11:50 | Inpatient (IN) | payer MEDICARE, MEDICAID ==
--- NOTE | 2017-03-19 12:16 | ED Physician Chart ---
Chief Complaint/HPI - Patient Information Date Seen:: 03/19/17 Time Seen:: 12:00 Chief Complaint:: stool coming out rectum History of Present Illness:: [facility] a [facility] of a [facility] facility. Nurses noted stool coming out the patient's rectum not going into her colostomy bag. No mention of vomiting. Allergies:: Allergies Allergy/AdvReac Type Severity Reaction Status Date / Time meperidine Allergy Verified 03/06/16 11:26 olopatadine Allergy Verified 09/21/16 08:30 Penicillins Allergy Verified 03/06/16 11:26 prochlorperazine Allergy Verified 03/06/16 11:27 risperidone Allergy Verified 03/06/16 11:27 Historian:: Other Review:: Transfer documents Reviewed Review of Systems - Review of Systems General/Constitutional: No fever, No chills Skin: No skin lesions Head: No headache Eyes: No loss of vision ENT: No earache Neck: No neck pain Cardio Vascular: No chest pain, No palpitations Pulmonary: No SOB GI: No nausea, No vomiting G/U: No dysuria Musculoskeletal: No bone or joint pain Endocrine: No polyuria Psychiatric: No prior psych history Hematopoietic: No bruising Allergic/Immuno: No urticaria Neurological: No syncope, No focal symptoms Past Medical History - Past Medical History Past Medical History: DM (anemia; chronic renal disease; cerebral palsy), Thyroid disorder, Other Family History: Other (unavailable as patient is nonverbal) Social History: Care Facility Surgical History: PEG/GTube, other (colostomy) Medication: Reviewed Family Medical History - Family Member Mother History Unknown: Yes Ethnicity: Unknown Living Status: Unknown Paternal History Unknown: Yes Ethnicity: Unknown Living Status: Unknown Hx Family Diabetes: Yes Physical Exam - Physical Examination Other Gen/Cons comments:: Patient is chronically ill-appearing, contractured and nonverbal Head: Atraumatic Eyes: Lids, conjuctiva normal, PERRL Skin: Nl inspection, No rash, No skin lesions, No ecchymosis ENMT: External ears, nose nl, TM canals nl, Lips, teeth, gums nl Respiratory: Nl effort/Exclusion, Clear to Auscultation Cardio Vascular: RRR, No murmur, gallop, rubs GI: No tenderness/rebounding/guarding, No organomegaly, No hernia, Normal BS's, Nondistended, No mass/bruits, No McBurney tenderness : No CVA tenderness Other Extremities comments:: Extremities contracture Labs/Radiology/EKG Results - Lab Results Results: Laboratory Results - last 24 hr 03/19/17 03/19/17 03/19/17 12:20 12:20 12:20 WBC 6.1 D RBC 3.62 L Hgb 10.0 L Hct 30.7 L MCV 84.9 MCH 27.6 MCHC Differential 32.5 RDW 19.7 Plt Count 218 D MPV 8.1 Neutrophils % 63.7 Lymphocytes % 21.9 Monocytes % 9.0 Eosinophils % 4.6 Basophils % 0.8 Sodium 137 Potassium 4.0 Chloride 106 Carbon Dioxide 25.1 Anion Gap 9.9 BUN 68 H Creatinine 1.2 Est GFR ( Amer) 60.0 Est GFR (Non-Af Amer) 49.6 BUN/Creatinine Ratio 56.7 Glucose 309 H Hemoglobin A1c % 6.8 H Calcium 10.2 Lipase 14 Comments:: Chest x-ray: Scoliosis; large hiatal hernia. CT abdomen and pelvis showed a collections within the medullary region of the left colon and large bilateral renal calculi. ED Septic Shock - . Is Septic Shock (SBP<90, OR Lactate>4 mmol\L) present?: No Reassessment (Disposition) - Reassessment Reassessment Condition:: Unchanged - Diagnosis Diagnosis:: Gastrointestinal fistula - Patient Disposition Admitted to:: Med/Surg Spoke to:: Jovita Admitting Medical Physician:: Stephon Sidhu Condition at Disposition:: Stable, Unchanged
[2017-03-19 12:33] LABS: % BASOPHILS 0.8 % (0.0-2.0); % EOSINOPHILS 4.6 % (0.0-5.0); % LYMPHOCYTES 21.9 % (20.0-50.0); % NEUTROPHILS 63.7 % (40.0-80.0); HEMATOCRIT 30.7 % (35.0-45.0); MEAN CELL VOLUME 84.9 fl (81-100); MEAN CORPUSCULAR HEMOGLOBIN 27.6 pg (27.0-31.0); MEAN CORPUSCULAR HGB CONC 32.5 pg (28.0-36.0); MEAN PLATELET VOLUME 8.1 fl; RED BLOOD COUNT 3.62 Mil/cmm (3.80-5.10); RED CELL DISTRIBUTION WIDTH 19.7 % (11.5-20.0)
[2017-03-19 12:35] LABS: PLATELET COUNT 218 Th/cmm (150-400); WHITE BLOOD COUNT 6.1 Th/cmm (4.8-10.8)
[2017-03-19 12:47] LABS: ANION GAP 9.9 (7.0-16.0); BUN/CREATININE RATIO 56.7; CALCIUM SERUM 10.2 mg/dL (8.6-10.3); CARBON DIOXIDE 25.1 mEq/L (21.0-31.0); CREATININE - SERUM 1.2 mg/dL (0.6-1.2)
--- NOTE | 2017-03-19 13:50 | Diagnostic Imaging Report ---
CHEST X-RAY: AP view INDICATION: Pneumonia COMPARISON: Chest x-ray 12/22/[address] abdomen and pelvis the same date at 03/19/2017 FINDINGS: A moderate to large hiatal hernia is seen along the left retrocardiac region. Spinal scoliosis is noted. There is a small left effusion. Left basal atelectasis is noted with no focal consolidation identified. Severe spinal scoliosis is noted. Borderline prominent heart is noted. IMPRESSION: Limited exam due to body habitus and severe scoliosis. Small left effusion is seen with left basal atelectatic changes. No focal consolidation identified. Moderate to large size left retrocardiac hiatal hernia.
--- NOTE | 2017-03-19 14:01 | Diagnostic Imaging Report ---
CT scan abdomen and pelvis without intravenous contrast HISTORY: Pain, fistula Total DLP equals 387 CTDI equals 8.9 Axial sections were obtained from the xiphoid process down to the pubic symphysis. The exam is compared with the prior study of October 13, 2016. Limited sections through the lower chest demonstrate a large hiatal hernia with the gastric fundus above the diaphragm. Volume loss noted within the left hemithorax. Mild pleural thickening noted in the left lower chest. The liver exhibits a homogeneous parenchyma. No focal lesions. The spleen appears normal. Gastrostomy tube is seen. A somewhat tubular shaped calcification noted near the gallbladder that appears vascular. Detail limited due to patient motion artifact. The pancreas is atrophic. Again, extensive atherosclerotic vascular calcification noted. Compared with the prior exam, relatively large bilateral renal calculi are seen. Moderate hydronephrosis noted on the right side associated with an approximate 1.1 cm calculus in the proximal most portion of the right ureter. Again, multiple relatively large calculi noted in the left kidney. The largest measures approximately 1.6 cm and is situated in the renal pelvis. A 7 mm calculus is noted in the proximal most portion of the left ureter. Moderate to severe dilatation of the collecting system noted. Air collections noted within the medullary region of the left kidney. Findings may be associated with a recent urologic procedure. Correlation with recent procedures needed. Exam of the pelvis demonstrates preservation of normal fat planes. An approximate 2.0 cm diverticulum extends off the right posterior lateral aspect of urinary bladder and is associated with a punctate intraluminal calcification. Ostomy noted over the left anterior lower abdomen. Stool is noted within a minimally distended rectum. A Frost catheter is inflated within the prostatic urethra. This should be repositioned. Again noted is chronic deformity about the right hip and surgical changes. Scoliosis and degenerative changes seen to the spine. IMPRESSION: 1. Relatively large bilateral renal calculi. Associated bilateral hydronephrosis. Calculi noted within the proximal portions of the ureters bilaterally. 2. Air collections noted within the medullary region of the left kidney. Findings may be associated with a recent urologic procedure. Correlation with the patient's history is needed. 3. Approximate 2.0 cm diverticulum extending off the right posterior lateral aspect of the urinary bladder and associated with an intraluminal punctate calcification. 4. MALPOSITIONED FROST CATHETER BALLOON INFLATED IN THE REGION OF THE PROSTATIC URETHRA. THIS SHOULD BE REPOSITIONED. 5. Large hiatal hernia 6. Chronic deformity and surgical changes about the right hip 7. Scoliosis Abnormal findings were reported to the radiology department (Serge), 03/19/2017 (1:56 PM).
[2017-03-19 17:45] LABS: URINE COLOR YELLOW
[2017-03-19 17:46] LABS: URINE BILIRUBIN NEGATIVE (NEGATIVE); URINE BLOOD SMALL (NEGATIVE); URINE GLUCOSE (UA) NEGATIVE (NEGATIVE); URINE KETONE 15 mg/dL (NEGATIVE); URINE PH 7.5 (4.6 - 8.0); URINE PROTEIN 100 mg/dL (NEGATIVE); URINE UROBILINOGEN 0.2 E.U./dL (0.2 - 1.0)
[2017-03-19 17:47] LABS: URINE BACTERIA MANY /hpf (NONE SEEN); URINE EPITHELIAL CELLS FEW /lpf (FEW)
[2017-03-19 17:48] LABS: URINE WBC >100 /hpf (0-5)
[2017-03-19] MEDS ORDERED: Magnesium Hydroxide (MOM) 30 mL UDC GT PRN (19:47)
[2017-03-19] MEDS ORDERED: Dextrose 50% 50 mL Abboject IVP PRN (19:47)
[2017-03-19] MEDS ORDERED: guaiFENesin 200 MG/10 ML UDC GT PRN (19:47)
[2017-03-19] MEDS ORDERED: Sodium Chloride 0.9% 1,000 ML IV SCH (20:00)
[2017-03-19] MEDS ORDERED: Levofloxacin 500mg/100mL 500 MG/100 ML BAG IV SCH (20:00)
[2017-03-19] MEDS ORDERED: INSULIN GLARGINE SUBQ SCH (21:00)
[2017-03-19] MEDS ORDERED: INSULIN HUMAN REGULAR 100 UNITS/ML UNIT SUBQ SCH (21:00)
[2017-03-19] MEDS: Insulin Detemir 100 units/mL 10mL Vial SUBQ SCH (22:27)
[2017-03-19] MEDS: Albuterol Nebulizer 2.5mg/3mL HHN SCH (22:49)
[2017-03-19] MEDS: Ipratropium Neb 0.5 mg/2.5 mL UD HHN SCH (22:49)
[2017-03-19] MEDS: INSULIN ASPART SLIDING SCALE 100 UNITS/ML UNIT SUBQ SCH (23:21)
[2017-03-20] MEDS ORDERED: INSULIN ASPART SLIDING SCALE 100 UNITS/ML UNIT SUBQ SCH
[2017-03-20] MEDS: Albuterol Nebulizer 2.5mg/3mL HHN SCH ×6 (02:56→22:38)
[2017-03-20] MEDS: Ipratropium Neb 0.5 mg/2.5 mL UD HHN SCH ×6 (02:56→22:39)
[2017-03-20] MEDS: INSULIN HUMAN ISOPHANE (NPH) 100 UNITS/ML SUBQ SCH ×2 (06:30→16:25)
[2017-03-20] MEDS: INSULIN ASPART SLIDING SCALE 100 UNITS/ML UNIT SUBQ SCH ×3 (06:31→18:13)
[2017-03-20 07:05] LABS: % BASOPHILS 0.3 % (0.0-2.0); % EOSINOPHILS 4.2 % (0.0-5.0); % LYMPHOCYTES 16.9 % (20.0-50.0); % MONOCYTES 8.9 % (2.0-10.0); % NEUTROPHILS 69.7 % (40.0-80.0); HEMATOCRIT 28.9 % (35.0-45.0); HEMOGLOBIN 9.5 gm/dL (11.7-15.5); MEAN CELL VOLUME 85.8 fl (81-100); MEAN CORPUSCULAR HEMOGLOBIN 28.4 pg (27.0-31.0); MEAN PLATELET VOLUME 8.3 fl; PLATELET COUNT 205 Th/cmm (150-400); RED BLOOD COUNT 3.36 Mil/cmm (3.80-5.10); RED CELL DISTRIBUTION WIDTH 19.6 % (11.5-20.0); WHITE BLOOD COUNT 5.7 Th/cmm (4.8-10.8)
[2017-03-20 07:38] LABS: ANION GAP 13.9 (7.0-16.0); BUN/CREATININE RATIO 48.5; CALCIUM SERUM 9.9 mg/dL (8.6-10.3); CARBON DIOXIDE 22.9 mEq/L (21.0-31.0); CREATININE - SERUM 1.3 mg/dL (0.6-1.2); POTASSIUM SERUM 3.8 mEq/L (3.5-5.1)
[2017-03-20] MEDS ORDERED: Non-Formulary Item 1 EA (Arginine/Ascorbate Sod/Vite Ac [Arginaid Powder] 1 EACH) GT SCH (09:00)
[2017-03-20] MEDS: Lactulose 10 Gm/15 mL 30mL UDC GT SCH (09:36)
[2017-03-20] MEDS: Multivitamin w/ Minerals Tab GT SCH (09:36)
[2017-03-20] MEDS: Lactobacillus Rhamnosus 10 Billion CFU Capsule GT SCH (09:36)
--- NOTE | 2017-03-20 09:58 | Internal Medicine Prog Note ---
Internal Medicine Subjective - Subjective Service Date: 03/20/17 ([facility] dictated [id number]) Internal Medicine Objective - Results Result Diagrams: 03/20/17 05:50 03/20/17 05:50 Recent Labs: Laboratory Last Values WBC 5.7 Th/cmm (4.8-10.8) 03/20/17 05:50 RBC 3.36 Mil/cmm (3.80-5.10) L 03/20/17 05:50 Hgb 9.5 gm/dL (11.7-15.5) L 03/20/17 05:50 Hct 28.9 % (35.0-45.0) L 03/20/17 05:50 MCV 85.8 fl (81-100) 03/20/17 05:50 MCH 28.4 pg (27.0-31.0) 03/20/17 05:50 MCHC Differential 33.0 pg (28.0-36.0) 03/20/17 05:50 RDW 19.6 % (11.5-20.0) 03/20/17 05:50 Plt Count 205 Th/cmm (150-400) 03/20/17 05:50 MPV 8.3 fl 03/20/17 05:50 Neutrophils % 69.7 % (40.0-80.0) 03/20/17 05:50 Lymphocytes % 16.9 % (20.0-50.0) L 03/20/17 05:50 Monocytes % 8.9 % (2.0-10.0) 03/20/17 05:50 Eosinophils % 4.2 % (0.0-5.0) 03/20/17 05:50 Basophils % 0.3 % (0.0-2.0) 03/20/17 05:50 Sodium 143 mEq/L (136-145) 03/20/17 05:50 Potassium 3.8 mEq/L (3.5-5.1) 03/20/17 05:50 Chloride 110 mEq/L (98-107) H 03/20/17 05:50 Carbon Dioxide 22.9 mEq/L (21.0-31.0) 03/20/17 05:50 Anion Gap 13.9 (7.0-16.0) 03/20/17 05:50 BUN 63 mg/dL (7-25) H 03/20/17 05:50 Creatinine 1.3 mg/dL (0.6-1.2) H 03/20/17 05:50 Est GFR ( Amer) 54.7 ml/min (>90) 03/20/17 05:50 Est GFR (Non-Af Amer) 45.2 ml/min 03/20/17 05:50 BUN/Creatinine Ratio 48.5 03/20/17 05:50 Glucose 331 mg/dL (70-105) H 03/20/17 05:50 POC Glucose 294 MG/DL (70 - 105) H 03/20/17 06:09 Hemoglobin A1c % 6.8 % (4.0-6.0) H 03/19/17 12:20 Calcium 9.9 mg/dL (8.6-10.3) 03/20/17 05:50 Lipase 14 U/L (11-82) 03/19/17 12:20 Urine Source [place] 03/19/17 17:00 Urine Color YELLOW 03/19/17 17:00 Urine Clarity CLOUDY (CLEAR) H 03/19/17 17:00 Urine pH 7.5 (4.6 - 8.0) 03/19/17 17:00 Ur Specific [place] 1.005 (1.005-1.030) 03/19/17 17:00 Urine Protein 100 mg/dL (NEGATIVE) H 03/19/17 17:00 Urine Glucose (UA) NEGATIVE mg/dL (NEGATIVE) 03/19/17 17:00 Urine Ketones 15 mg/dL (NEGATIVE) H 03/19/17 17:00 Urine Blood SMALL (NEGATIVE) H 03/19/17 17:00 Urine Nitrate NEGATIVE (NEGATIVE) 03/19/17 17:00 Urine Bilirubin NEGATIVE (NEGATIVE) 03/19/17 17:00 Urine Urobilinogen 0.2 E.U./dL (0.2 - 1.0) 03/19/17 17:00 Ur Leukocyte Esterase LARGE (NEGATIVE) H 03/19/17 17:00 Urine RBC 2-5 /hpf (0-5) 03/19/17 17:00 Urine WBC >100 /hpf (0-5) H 03/19/17 17:00 Ur Epithelial Cells FEW /lpf (FEW) 03/19/17 17:00 Urine Bacteria MANY /hpf (NONE SEEN) 03/19/17 17:00 - Physical Exam Vitals and I&O: Vital Signs Temp 98.3 F 03/20/17 04:00 Pulse 94 03/20/17 07:28 Resp 20 03/20/17 07:28 BP 112/70 03/20/17 04:00 Pulse Ox 97 03/20/17 07:28 Intake & Output 03/19/17 03/20/17 03/20/17 18:59 06:59 18:59 Intake Total 800 Output Total 600 Balance 200 Weight (lbs) 85 lb 8 oz Intake: Intake, IV Amount 100 Levofloxacin 500mg/100mL 100 500 mg In 100 ml @ 100 mls/hr IV Q24HR [facility] Rx#: [id number] Tube Feeding 700 Output: Urine 350 Stool 250 Other: Stool Characteristics Liquid Active Medications: Current Medications Acetaminophen (Tylenol) 650 mg GT Q4HR PRN PRN Reason: Pain (Mild) Stop: 05/18/17 19:46 Acetaminophen (Tylenol 650mg/20.3ml Suspension) 650 mg GT Q4H PRN PRN Reason: FEVER >101 Stop: 05/18/17 19:46 Last Admin: 03/20/17 03:03 Dose: 650 mg Albuterol Sulfate (Albuterol 2.5mg/3ml Neb Ud) 2.5 mg HHN Q4HRT [facility] Stop: 05/18/17 22:59 Last Admin: 03/20/17 07:28 Dose: 2.5 mg Atorvastatin Calcium (Lipitor) 40 mg PO HS [facility] PRN Reason: Protocol Stop: 05/18/17 20:59 Last Admin: 03/19/17 22:17 Dose: 40 mg Dextrose (D50w) 50 ml IVP PRN PRN PRN Reason: blood sugar < 60 Stop: 05/18/17 19:46 Folic Acid (Folate) 1 mg GT DAILY [facility] Stop: 05/19/17 08:59 Last Admin: 03/20/17 09:36 Dose: 1 mg Guaifenesin (Robitussin) 200 mg GT Q4HR PRN PRN Reason: Cough or Congestion Stop: 05/18/17 19:46 Levofloxacin (Levaquin Pb) 500 mg in 100 mls @ 100 mls/hr IV Q24HR [facility] Stop: 05/18/17 19:59 Last Infusion: 03/19/17 23:33 Dose: Infused Sodium Chloride (Nacl 0.9%) 1,000 mls @ 60 mls/hr IV .[id number] [facility] Stop: 05/18/17 19:59 Last Admin: 03/19/17 22:32 Dose: 60 mls/hr Insulin Aspart (Novolog Insulin Sliding Scale) 0 units SUBQ Q6HR [facility] PRN Reason: Protocol Stop: 05/19/17 00:00 Last Admin: 03/20/17 06:31 Dose: 6 units Insulin Detemir (Levemir Insulin) 50 units SUBQ HS [facility] Stop: 05/18/17 20:59 Last Admin: 03/19/17 22:27 Dose: 50 units Insulin Human NPH (Novolin N) 15 units SUBQ BIDAC [facility] PRN Reason: Protocol Stop: 05/19/17 07:29 Last Admin: 03/20/17 06:30 Dose: 15 units Ipratropium [place] (Atrovent Neb 0.5mg/2.5ml) 0.5 mg HHN Q4HRT [facility] Stop: 05/18/17 22:59 Last Admin: 03/20/17 07:28 Dose: 0.5 mg Lactobacillus Rhamnosus (Culturelle) 1 each GT DAILY [facility] Stop: 05/19/17 08:59 Last Admin: 03/20/17 09:36 Dose: 1 each Lactulose (Cephulac) 20 gm GT DAILY [facility] Stop: 05/19/17 08:59 Last Admin: 03/20/17 09:36 Dose: 20 gm Loperamide HCl (Imodium) 2 mg GT Q4H PRN PRN Reason: DIARRHEA Stop: 05/18/17 19:46 Lorazepam (Ativan) 0.5 mg PO Q8HR PRN; Protocol PRN Reason: Anxiety Stop: 05/18/17 19:46 Magnesium Hydroxide (Milk Of Magnesia) 30 ml GT DAILY PRN PRN Reason: Constipation Stop: 05/18/17 19:46 Metoclopramide HCl (Reglan) 10 mg GT DAILY [facility] Stop: 05/19/17 08:59 Last Admin: 03/20/17 09:36 Dose: 10 mg Miscellaneous (Arginine/Ascorbate Sod/Lucas Ac [Arginaid Powder]) 1 each GT DAILY [facility] Stop: 05/19/17 08:59 Rivaroxaban (Xarelto) 10 mg GT DAILY [facility] Stop: 05/19/17 08:59 Last Admin: 03/20/17 09:36 Dose: 10 mg Vitamin A (Vitamin A & D) 5 gm TP DAILY [facility] Stop: 05/19/17 08:59 - Procedures Procedures: Procedures Procedure Code Date BLOOD TRANSFUSION SERVICE 15618 12/16/16 BYPASS DESCENDING COLON TO CUTANEOUS, OPEN APPROACH [id number] 09/21/16 CHANGE FEEDING DEVICE IN UP INTEST TRACT, TRAFFIC EXPERT APPROACH [id number] 09/21/16 CHANGE GASTROSTOMY TUBE 70737 09/21/16 COLOSTOMY 67474 09/21/16 AGNIESZKA BONE 20 SQ CM/< 30134 01/28/15 DIAGNOSTIC COLONOSCOPY 70889 03/06/16 EGD BIOPSY SINGLE/MULTIPLE 42645 03/06/16 EXCISION OF DESCENDING COLON, OPEN APPROACH [id number] 09/21/16 EXCISION OF DUODENUM, ENDO, DIAGN [id number] 03/06/16 EXCISION OF SACRUM, OPEN APPROACH [id number] 09/21/16 EXCISION OF STOMACH, ENDO, DIAGN [id number] 03/06/16 IMMOBILIZ/WOUND ATTN NEC 93.59 01/28/15 INSERT INDWELLING CATH 57.94 10/18/05 INSERT TEMP BLADDER CATH 54448 10/18/05 INSERTION OF INFUSION DEV INTO SUP VENA CAVA, PERC APPROACH [id number] 09/21/16 INSPECTION OF LOWER INTESTINAL TRACT, ENDO [id number] 03/06/16 INSPECTION OF UPPER INTESTINAL TRACT, ENDO [id number] 10/27/15 LOC EXC BONE LESION NEC 77.69 01/28/15 PACKED CELL TRANSFUSION 99.04 10/20/14 REMOVAL OF PRESSURE SORE 90845 09/21/16 REPLACE GASTROSTOMY TUBE 97.02 06/09/14 RESPIRATORY VENTILATION, 24-96 CONSECUTIVE HOURS [id number] 09/21/16 TRANSFUSE NONAUT RED BLOOD CELLS IN PERIPH VEIN, PERC 01303M4 12/16/16 VENT MGMT INPAT INIT DAY 27097 09/21/16 Internal Medicine Assmt/Plan - Assessment Assessment: GI FISTULA HTN DM2 MRSA NARES ACUTE UTI
--- NOTE | 2017-03-20 10:42 | History & Physical ---
ADMIT DATE: 03/20/2017 CHIEF COMPLAINT: Stool coming out of rectum. HISTORY OF PRESENT ILLNESS: This is a 56-year-old female, who is a resident of [facility] who is brought here to [facility]. Apparently, the patient did not have any bowel movements through patient's colostomy bag and stool was coming out of her rectum. For this reason, the patient is admitted to be evaluated by GI. PAST MEDICAL HISTORY: Mental retardation, cerebral palsy, diabetes. PAST SURGICAL HISTORY: PEG and colostomy. ALLERGIES: DEMEROL, OLOPATADINE, PENICILLIN, RISPERDAL. MEDICATIONS: Please see medication reconciliation sheet. FAMILY HISTORY: Noncontributory. SOCIAL HISTORY: The patient is a [facility] resident, requiring 24-hour nursing care. REVIEW OF SYSTEMS: Unable to obtain due to patient's mental status. PHYSICAL EXAMINATION: GENERAL: The patient is awake, not interactive, in no apparent distress. VITAL SIGNS: Temperature 98.3, heart rate 106, blood pressure 112/70, respirations 18, O2 98%. HEENT: Head; normocephalic, atraumatic. NECK: Supple. No mass. LUNGS: Few rhonchi. HEART: Regular rate and rhythm. ABDOMEN: Soft, nontender. LABORATORY DATA: WBC 5.7, H and H and 9.5 and 28.9, and platelets of 205. Sodium 142, potassium 3.8, chloride 110, BUN of 63, creatinine of 1.3. The patient had a urinalysis done is positive for UTI. DIAGNOSTICS: The patient had a chest x-ray done and the impression is limited exam due to body habitus, severe scoliosis, small left effusion seen with left basal atelectasis changes, no focal consolidation identified moderate to large size left retrocardiac hiatal hernia. A CT of abdomen and pelvis was also done and the impression is relatively large bilateral renal calculi, associated bilateral hydrocephalus, calculi noted within the proximal portions of the ureters bilaterally, air collection noted in the medullary region of left kidney. Findings may be associated with recent urologic procedure, approximate 2.0 cm diverticulum extending off the right posterolateral aspect of the urinary blood associated with intraluminal punctate calcification, malposition Uribe catheter balloon inflated in the region of prostatic urethra, this should be repositioned, large hiatal hernia, chronic ____ surgical changes of the right hip, scoliosis. ASSESSMENT: Acute urinary tract infection, gastrointestinal fistula, mental retardation/cerebral palsy, diabetes. PLAN: The patient to be admitted to the med/surg unit. We will get GI consultation. We will give IV fluids for hydration. We will also get Nephrology on the case. We will monitor the patient for electrolytes level. JOB# [id number]
[2017-03-20] MEDS: Sodium Chloride 0.45% 1,000 ML IV SCH (15:50)
[2017-03-20] MEDS: Vitamin A/Vitamin D 5 gm Packet TP SCH (17:29)
[2017-03-20] MEDS ORDERED: Levofloxacin 250mg/50mL 250 MG/50 ML BAG IV SCH (20:00)
--- NOTE | 2017-03-20 22:57 | Consultation ---
DATE OF CONSULTATION: 03/20/2017 ATTENDING PHYSICIAN: Dr. Stephon Sidhu. PROGRAM SERVICES PLANNER: Monico Louie M.D. REASON FOR CONSULTATION: Worsening kidney function, electrolyte imbalance, and fluid management. HISTORY OF PRESENT ILLNESS: This is a 56-year-old female with history of intellectual disability, who [facility] because of stool coming out of her rectum rather than left colostomy bag. A few hours prior to admission, staff noted stool coming out of the rectum of the patient rather than in the colostomy bag. She was then brought to the Emergency Room. CT scan of the abdomen just revealed extension of the diverticulum to the right posterior lateral aspect of the urinary bladder and associated with punctate calcifications, large bilateral renal calculi associated with hydronephrosis noted at the proximal portion of the ureters, malpositioned Uribe catheter balloon at the urethra. Her white count was 5.7 and she was afebrile. She was admitted with a BUN/creatinine of 60/1.2. Her BUN/creatinine today were 63/1.2. There was no mention of any nausea or vomiting, no diarrhea. PAST MEDICAL HISTORY: 1. Intellectual disability. 2. Cerebral palsy. 3. Type 2 diabetes mellitus. 4. Scoliosis. 5. Sacral ulcers. 6. Dyslipidemia. 7. Bipolar disorder. 8. Hypothyroidism. 9. Anemia of iron deficiency. PAST SURGICAL HISTORY: 1. Status post PEG placement. 2. Status post colostomy. CURRENT MEDICATIONS: She is currently on acetaminophen, albuterol, atorvastatin, folic acid, guaifenesin, aspart, detemir, ipratropium, lactobacillus, lactulose, levofloxacin, loperamide, Ativan, magnesium hydroxide, multivitamins with minerals, Xarelto as well as vitamin D. ALLERGIES: ALLERGIC TO MEPERIDINE, OLOPATADINE, PENICILLIN, PROCHLORPERAZINE, RISPERIDONE. SOCIAL AND FAMILY HISTORY: I was not able to obtain directly from the patient because she remains nonverbal. REVIEW OF SYSTEMS: Again, I was not able to decipher directly from the patient because of her depressed mental status. PHYSICAL EXAMINATION: GENERAL: The patient is arousable, not in any form of distress. VITAL SIGNS: Her blood pressure is 112/69, pulse is 92, temperature 98.4 degrees. SKIN: Poor turgor, warm. No rash, no jaundice appreciated. HEENT: Head normocephalic, atraumatic. Eyes: Extraocular muscles intact. Pupils are equal, round, reactive to light and accommodates. Anicteric sclerae. Pale conjunctivae. Nose, midline nasal septum. Mouth: Dry mucosa, poor dentition. NECK: Supple, no adenopathy, no thyromegaly, no bruits. Trachea palpated in the midline. CHEST AND CVS: Distant heart sounds, S1, S2. No rub, murmur, nor gallop appreciated. Point of maximal impulse fifth intercostal space, left midclavicular line. No abdominal or femoral bruits appreciated. LUNGS: Equal expansion. No use of accessory muscles. No supraclavicular retractions, decreased breath sounds, clear to auscultation without any wheeze. Breast symmetrical without any discharge. ABDOMEN: Flat, soft. Positive for bowel sounds. No bruits either diastolic or systolic. She has a left colostomy bag without any drainage from the exit site. There is air in her bag along with liquid stool. No bruits either diastolic or systolic. RECTAL: Unable to perform due to patient's current positioning. GENITOURINARY: Normal appearing female genitalia with indwelling Uribe catheter. MUSCULOSKELETAL: No effusions present in her joints, unable to assess her range of motion. EXTREMITIES: No evidence of any edema, cyanosis, nor clubbing with palpable femoral, unable to fully appreciate popliteal and dorsalis pedis pulses due to contractions. NEUROLOGIC: The patient is awake; however, she has voluntary movements of all her extremities. LABORATORY DATA: Revealed sodium 142, potassium 3.8, chloride 110, bicarbonate 22, BUN 63, creatinine 1.3, glucose 31, calcium is 9.9. White count 5.7, hemoglobin 9.5, hematocrit 28.9, platelets 205 ____. IMPRESSION: 1. Acute kidney injury. The patient developed prerenal azotemia. This is supported by a very high BUN to creatinine ratio, physical exam revealed poor skin turgor with dry oral mucosa. These led to a decrease in effective circulating volume and thus prerenal azotemia progressed to acute tubular injury. 2. Bilateral hydronephrosis secondary to bilateral renal calculi. 3. Malposition of Uribe catheter in the urethra. 4. Possible stool output from the rectum rather than left colostomy bag. 5. Possible complicated urinary tract infection. 6. Functional quadriplegia. 7. Intellectual disability. 8. Cerebral palsy. 9. Type 2 diabetes mellitus. 10. Scoliosis. 11. Sacral ulcer. 12 . Dyslipidemia. 13. Bipolar disorder. 14 Hypothyroidism. 15. Anemia, iron deficiency. PLAN: 1. Stat the patient on IV fluids consisting of half NS. 2. Follow up urine culture and sensitivity. 3. Renal as well as bladder ultrasound. 4. Urine sodium, eosinophils and creatinine. 5. Urine microalbumin to creatinine ratio. 6. Follow up electrolytes. Thank you, Dr. Sidhu, for this consult. I will follow the patient closely with you. JOB# [id number]
[2017-03-20] MEDS: Insulin Detemir 100 units/mL 10mL Vial SUBQ SCH (23:06)
[2017-03-21] MEDS: INSULIN ASPART SLIDING SCALE 100 UNITS/ML UNIT SUBQ SCH ×4 (01:00→17:17)
[2017-03-21] MEDS: Ipratropium Neb 0.5 mg/2.5 mL UD HHN SCH ×6 (03:03→23:35)
[2017-03-21] MEDS: Albuterol Nebulizer 2.5mg/3mL HHN SCH ×6 (03:03→23:32)
[2017-03-21] MEDS: Sodium Chloride 0.45% 1,000 ML IV SCH (05:32)
[2017-03-21 07:28] LABS: ALB/GLOB RATIO 0.6 (1.0-1.8); ANION GAP 10.2 (7.0-16.0); BILIRUBIN,TOTAL 0.4 mg/dL (0.3-1.0); BUN/CREATININE RATIO 42.9; CALCIUM SERUM 9.6 mg/dL (8.6-10.3); CARBON DIOXIDE 22.6 mEq/L (21.0-31.0); CREATININE - SERUM 1.4 mg/dL (0.6-1.2); MAGNESIUM 2.1 mg/dL (1.9-2.7); PHOSPHOROUS 3.3 mg/dL (2.5-5.0); POTASSIUM SERUM 3.8 mEq/L (3.5-5.1); URIC ACID 7.5 mg/dL (2.3-6.6)
[2017-03-21 07:57] LABS: HEMATOCRIT 26.7 % (35.0-45.0); HEMOGLOBIN 8.9 gm/dL (11.7-15.5); MEAN CELL VOLUME 86.8 fl (81-100); MEAN CORPUSCULAR HEMOGLOBIN 28.9 pg (27.0-31.0); MEAN CORPUSCULAR HGB CONC 33.3 pg (28.0-36.0); MEAN PLATELET VOLUME 8.4 fl; PLATELET COUNT 164 Th/cmm (150-400); RED BLOOD COUNT 3.08 Mil/cmm (3.80-5.10)
[2017-03-21] MEDS: INSULIN HUMAN ISOPHANE (NPH) 100 UNITS/ML SUBQ SCH ×2 (07:58→17:17)
[2017-03-21 08:09] LABS: WHITE BLOOD COUNT 9.2 Th/cmm (4.8-10.8)
[2017-03-21] MEDS: Lactulose 10 Gm/15 mL 30mL UDC GT SCH (08:35)
[2017-03-21] MEDS: Lactobacillus Rhamnosus 10 Billion CFU Capsule GT SCH (08:36)
[2017-03-21] MEDS: Multivitamin w/ Minerals Tab GT SCH (08:36)
[2017-03-21] MEDS: Vitamin A/Vitamin D 5 gm Packet TP SCH (08:36)
[2017-03-21 09:05] LABS: ANISOCYTOSIS 1+; BAND NEUTROPHILE 14 % (0-10); EOSINOPHIL 2 % (0-5); NEUTROPHILS 71 % (40-80); PLATELET ESTIMATE ADEQUATE (NORMAL); PLATELET MORPHOLOGY NORMAL (NORMAL); TOTAL CELLS COUNTED 100
--- NOTE | 2017-03-21 10:22 | Diagnostic Imaging Report ---
Exam: Renal ultrasound Diagnosis hydronephrosis. Findings: Real-time ultrasound examination of kidneys performed multiple planes. Right kidney measures 11.7 x 5.1 x 6.8 cm diameter. There is evidence for hydronephrosis with the small calculi and diffuse shadowing. There is evidence for obstructing calculi in proximal left ureter. Left kidney measures 9.5 x 5 x 5.8 cm diameter with 3.0 x 2.6 x 3.0 cm cyst in the left upper kidney. There is evidence of for dilatation of collecting system of the left kidney with small calculi. The bladder for catheter is noted. IMPRESSION: Bilateral hydronephrosis, bilateral renal calculi. Small calculus in proximal right ureter with subsequent hydronephrosis.
[2017-03-21] MEDS ORDERED: Diatrizoate Meglumine/Diatri 30 mL Sol PO ONE (11:06)
--- NOTE | 2017-03-21 14:20 | Internal Medicine Prog Note ---
Internal Medicine Subjective - Subjective Patient seen and examined:: with staff, chart reviewed Patient is:: awake, non-verbal, non-interactive, in bed, congested Patient Complaints of:: congestion Per staff patient has:: no adverse event, agitated, confused, tolerating meds Internal Medicine Objective - Results Result Diagrams: 03/21/17 06:44 03/21/17 06:44 Recent Labs: Laboratory Last Values WBC 9.2 Th/cmm (4.8-10.8) D 03/21/17 06:44 RBC 3.08 Mil/cmm (3.80-5.10) L 03/21/17 06:44 Hgb 8.9 gm/dL (11.7-15.5) L 03/21/17 06:44 Hct 26.7 % (35.0-45.0) L 03/21/17 06:44 MCV 86.8 fl (81-100) 03/21/17 06:44 MCH 28.9 pg (27.0-31.0) 03/21/17 06:44 MCHC Differential 33.3 pg (28.0-36.0) 03/21/17 06:44 RDW 20.0 % (11.5-20.0) 03/21/17 06:44 Plt Count 164 Th/cmm (150-400) 03/21/17 06:44 MPV 8.4 fl 03/21/17 06:44 Neutrophils % 69.7 % (40.0-80.0) 03/20/17 05:50 Band Neutrophils % 14 % (0-10) H 03/21/17 06:44 Lymphocytes % 16.9 % (20.0-50.0) L 03/20/17 05:50 Monocytes % 8.9 % (2.0-10.0) 03/20/17 05:50 Eosinophils % 4.2 % (0.0-5.0) 03/20/17 05:50 Basophils % 0.3 % (0.0-2.0) 03/20/17 05:50 Neutrophils (Manual) 71 % (40-80) 03/21/17 06:44 Lymphocytes 6 % (20-50) L 03/21/17 06:44 Monocytes 7 % (2-10) 03/21/17 06:44 Eosinophils 2 % (0-5) 03/21/17 06:44 Platelet Estimate ADEQUATE (NORMAL) 03/21/17 06:44 Platelet Morphology NORMAL (NORMAL) 03/21/17 06:44 Anisocytosis 1+ 03/21/17 06:44 RBC Morph Micro Appear ABNORMAL (NORMAL) 03/21/17 06:44 Sodium 140 mEq/L (136-145) 03/21/17 06:44 Potassium 3.8 mEq/L (3.5-5.1) 03/21/17 06:44 Chloride 111 mEq/L (98-107) H 03/21/17 06:44 Carbon Dioxide 22.6 mEq/L (21.0-31.0) 03/21/17 06:44 Anion Gap 10.2 (7.0-16.0) 03/21/17 06:44 BUN 60 mg/dL (7-25) H 03/21/17 06:44 Creatinine 1.4 mg/dL (0.6-1.2) H 03/21/17 06:44 Est GFR ( Amer) 50.2 ml/min (>90) 03/21/17 06:44 Est GFR (Non-Af Amer) 41.5 ml/min 03/21/17 06:44 BUN/Creatinine Ratio 42.9 03/21/17 06:44 Glucose 306 mg/dL (70-105) H 03/21/17 06:44 POC Glucose 251 MG/DL (70 - 105) H 03/21/17 11:18 Hemoglobin A1c % 6.8 % (4.0-6.0) H 03/19/17 12:20 Uric Acid 7.5 mg/dL (2.3-6.6) H 03/21/17 06:44 Calcium 9.6 mg/dL (8.6-10.3) 03/21/17 06:44 Phosphorus 3.3 mg/dL (2.5-5.0) 03/21/17 06:44 Magnesium 2.1 mg/dL (1.9-2.7) 03/21/17 06:44 Total Bilirubin 0.4 mg/dL (0.3-1.0) 03/21/17 06:44 AST 13 U/L (13-39) 03/21/17 06:44 ALT 12 U/L (7-52) 03/21/17 06:44 Alkaline Phosphatase 100 U/L (34-104) 03/21/17 06:44 Total Protein 7.5 gm/dL (6.0-8.3) 03/21/17 06:44 Albumin 2.9 gm/dL (3.7-5.3) L 03/21/17 06:44 Globulin 4.6 gm/dL 03/21/17 06:44 Albumin/Globulin Ratio 0.6 (1.0-1.8) L 03/21/17 06:44 Lipase 14 U/L (11-82) 03/19/17 12:20 TSH 1.19 uIU/ml (0.34-5.60) 03/21/17 06:44 Urine Source [place] 03/19/17 17:00 Urine Color YELLOW 03/19/17 17:00 Urine Clarity CLOUDY (CLEAR) H 03/19/17 17:00 Urine pH 7.5 (4.6 - 8.0) 03/19/17 17:00 Ur Specific [place] 1.005 (1.005-1.030) 03/19/17 17:00 Urine Protein 100 mg/dL (NEGATIVE) H 03/19/17 17:00 Urine Glucose (UA) NEGATIVE mg/dL (NEGATIVE) 03/19/17 17:00 Urine Ketones 15 mg/dL (NEGATIVE) H 03/19/17 17:00 Urine Blood SMALL (NEGATIVE) H 03/19/17 17:00 Urine Nitrate NEGATIVE (NEGATIVE) 03/19/17 17:00 Urine Bilirubin NEGATIVE (NEGATIVE) 03/19/17 17:00 Urine Urobilinogen 0.2 E.U./dL (0.2 - 1.0) 03/19/17 17:00 Ur Leukocyte Esterase LARGE (NEGATIVE) H 03/19/17 17:00 Urine RBC 2-5 /hpf (0-5) 03/19/17 17:00 Urine WBC >100 /hpf (0-5) H 03/19/17 17:00 Ur Epithelial Cells FEW /lpf (FEW) 03/19/17 17:00 Urine Bacteria MANY /hpf (NONE SEEN) 03/19/17 17:00 - Physical Exam Vitals and I&O: Vital Signs Temp 97.4 F 03/21/17 10:12 Pulse 93 08/19/17 14:06 Resp 18 03/21/17 14:06 BP 118/66 03/21/17 10:12 Pulse Ox 96 03/21/17 14:06 Intake & Output 03/20/17 03/21/17 03/21/17 18:59 06:59 18:59 Intake Total 650 1000 Output Total 1000 Balance -350 1000 Weight (lbs) 38.555 kg Intake: Intake, IV Amount 1000 Sodium Chloride 0.45% 1, 1000 000 ml @ 75 mls/hr IV . [id number] [facility] Rx#:[id number] Tube Feeding 650 Output: Urine 1000 Other: Stool Characteristics Liquid Liquid Liquid Active Medications: Current Medications Acetaminophen (Tylenol) 650 mg GT Q4HR PRN PRN Reason: Pain (Mild) Stop: 05/18/17 19:46 Acetaminophen (Tylenol 650mg/20.3ml Suspension) 650 mg GT Q4H PRN PRN Reason: FEVER >101 Stop: 05/18/17 19:46 Last Admin: 03/20/17 03:03 Dose: 650 mg Albuterol Sulfate (Albuterol 2.5mg/3ml Neb Ud) 2.5 mg HHN Q4HRT [facility] Stop: 05/18/17 22:59 Last Admin: 03/21/17 14:06 Dose: 2.5 mg Atorvastatin Calcium (Lipitor) 40 mg PO HS CHING PRN Reason: Protocol Stop: 05/18/17 20:59 Last Admin: 03/20/17 23:06 Dose: 40 mg Folic Acid (Folate) 1 mg GT DAILY [facility] Stop: 05/19/17 08:59 Last Admin: 03/21/17 08:36 Dose: 1 mg Guaifenesin (Robitussin) 200 mg GT Q4HR PRN PRN Reason: Cough or Congestion Stop: 05/18/17 19:46 Sodium Chloride (Nacl 0.45%) 1,000 mls @ 75 mls/hr IV .[id number] [facility] Stop: 05/19/17 14:23 Last Admin: 03/21/17 05:32 Dose: 75 mls/hr Levofloxacin (Levaquin Pb) 250 mg in 50 mls @ 100 mls/hr IV Q24H [facility] Stop: 05/19/17 19:59 Last Admin: 03/20/17 23:05 Dose: 100 mls/hr Insulin Aspart (Novolog Insulin Sliding Scale) 0 units SUBQ Q6HR CHING PRN Reason: Protocol Stop: 05/19/17 00:00 Last Admin: 03/21/17 11:26 Dose: 6 units Insulin Detemir (Levemir Insulin) 50 units SUBQ HS CHING Stop: 05/18/17 20:59 Last Admin: 03/20/17 23:06 Dose: 50 units Insulin Human NPH (Novolin N) 15 units SUBQ BIDAC CHING PRN Reason: Protocol Stop: 05/19/17 07:29 Last Admin: 03/21/17 07:58 Dose: 15 units Ipratropium [place] (Atrovent Neb 0.5mg/2.5ml) 0.5 mg HHN Q4HRT CHING Stop: 05/18/17 22:59 Last Admin: 03/21/17 14:06 Dose: 0.5 mg Lactobacillus Rhamnosus (Culturelle) 1 each GT DAILY CHING Stop: 05/19/17 08:59 Last Admin: 03/21/17 08:36 Dose: 1 each Lactulose (Cephulac) 20 gm GT DAILY CHING Stop: 05/19/17 08:59 Last Admin: 03/21/17 08:35 Dose: 20 gm Loperamide HCl (Imodium) 2 mg GT Q4H PRN PRN Reason: DIARRHEA Stop: 05/18/17 19:46 Lorazepam (Ativan) 0.5 mg PO Q8HR PRN; Protocol PRN Reason: Anxiety Stop: 05/18/17 19:46 Magnesium Hydroxide (Milk Of Magnesia) 30 ml GT DAILY PRN PRN Reason: Constipation Stop: 05/18/17 19:46 Metoclopramide HCl (Reglan) 10 mg GT DAILY CHING Stop: 05/19/17 08:59 Last Admin: 03/21/17 10:26 Dose: 10 mg Miscellaneous (Arginine/Ascorbate Sod/Lucas Ac [Arginaid Powder]) 1 each GT DAILY [facility] Stop: 05/19/17 08:59 Mupirocin (Bactroban Oint) 1 appl NS BID [facility] Stop: 03/25/17 09:01 Last Admin: 03/21/17 08:34 Dose: 1 appl Rivaroxaban (Xarelto) 10 mg GT DAILY [facility] Stop: 05/19/17 08:59 Last Admin: 03/21/17 08:36 Dose: 10 mg Vitamin A (Vitamin A & D) 5 gm TP DAILY CHING Stop: 05/19/17 08:59 Last Admin: 03/21/17 08:36 Dose: 5 gm General: lethargic, demented, bilateral temporal wasting, cachectic, appears older HEENT: dry oral mucosa, thinning hair, poor dentition Neck: Supple, No thyromegaly Lungs: congested, rales, ronchi Cardiovascular: RRR, Normal S1, Normal S2 Abdomen: soft, non-tender, +GT, other (colostomy) Extremities: excoriation, contracture, ulcers stage 2, ulcers stage 4 Neurological: lethargic - Procedures Procedures: Procedures Procedure Code Date BLOOD TRANSFUSION SERVICE 30850 12/16/16 BYPASS DESCENDING COLON TO CUTANEOUS, OPEN APPROACH [id number] 09/21/16 CHANGE FEEDING DEVICE IN UP INTEST TRACT, PATHOLOGY SUPERVISOR APPROACH [id number] 09/21/16 CHANGE GASTROSTOMY TUBE 52086 09/21/16 COLOSTOMY 40001 09/21/16 AGNIESZKA BONE 20 SQ CM/< 69380 01/28/15 DIAGNOSTIC COLONOSCOPY 51755 03/06/16 EGD BIOPSY SINGLE/MULTIPLE 49903 03/06/16 EXCISION OF DESCENDING COLON, OPEN APPROACH [id number] 09/21/16 EXCISION OF DUODENUM, ENDO, DIAGN [id number] 03/06/16 EXCISION OF SACRUM, OPEN APPROACH [id number] 09/21/16 EXCISION OF STOMACH, ENDO, DIAGN [id number] 03/06/16 IMMOBILIZ/WOUND ATTN NEC 93.59 01/28/15 INSERT INDWELLING CATH 57.94 10/18/05 INSERT TEMP BLADDER CATH 53703 10/18/05 INSERTION OF INFUSION DEV INTO SUP VENA CAVA, PERC APPROACH [id number] 09/21/16 INSPECTION OF LOWER INTESTINAL TRACT, ENDO [id number] 03/06/16 INSPECTION OF UPPER INTESTINAL TRACT, ENDO [id number] 10/27/15 LOC EXC BONE LESION NEC 77.69 01/28/15 PACKED CELL TRANSFUSION 99.04 10/20/14 REMOVAL OF PRESSURE SORE 73603 09/21/16 REPLACE GASTROSTOMY TUBE 97.02 06/09/14 RESPIRATORY VENTILATION, 24-96 CONSECUTIVE HOURS [id number] 09/21/16 TRANSFUSE NONAUT RED BLOOD CELLS IN PERIPH VEIN, PERC [id number] 12/16/16 VENT MGMT INPAT INIT DAY 40001 09/21/16 Internal Medicine Assmt/Plan - Assessment Assessment: abd pain possible GI FISTULA HTN DM2 MRSA NARES ACUTE UTI dehydration, renal failure' timmy hydroneprosis htn - Plan Plan: cont on iv abx o2 bronchodilator will adjust abx gi and renal follow up amandeep mejia Nutritional Asmnt/Malnutr-PDOC - Dietary Evaluation Malnutrition Findings (Please click <Entered> for more info): Nutritional Asmnt/Malnutrition Start: 03/20/17 17: 34 Text: Status: Complete Freq: Document 03/20/17 17:34 [facility] (Rec: 03/20/17 17:48 [facility] [id number]) Nutritional Asmnt/Malnutrition Patient General Information Nutritional Screening Consult Diagnosis Acute UTi, gastrointestinal fistula Pertinent Medical Hx/Surgical Hx Mental retardation, cerebral palsy, DM, PEG, colostomy Subjective Information Nutrition Consult for low cedric score and gtube feeding received and completed. Pt is a 56-year-old female from [facility] admitted with chief complaint of stool coming out of rectum instead of colostomy bag. Pt is a poor historian. Pt has a small body frame with no muscle or fat depletion. RD confirmed feeding schedule with HALINA Jc. Current Diet Order/ Nutrition Support Diabetisource AC at 55 ml/hr x 20 [id number]=[id number] kcals,66gm protein,900ml water Patient / S.O Can't verbalize diet edu Pertinent Medications Folate, Novolog, Levemir, Novolin N, Culturelle, Cephulac, Reglan, NaCl 0.45%, Vitamin A & D Pertinent Labs (03/19) Glucose 309H, A1C 6.8H (03/20) BUN 63H, Creatinine 1. 3H, Glucose 331H, POC Glucose 294H-317H Nutritional Hx/Data Height 1.5 m Height (Calculated Centimeters) 149.9 Current Weight (lbs) 38.782 kg Weight (Calculated Kilograms) 38.8 Weight (Calculated Grams) 06521.1 [place] Body Weight N/A Weight Status Approriate GI Symptoms GI Symptoms None Difficult in: Chewing Swallowing Food Allergies No Usual diet at home Glucerna 1.2 at 55 ml/hr x 20 hours, run [id number] Skin Integrity/Comment: Cedric 10. Decubitus ulcers to sacral-coccygeal area, buttocks Estimated Nutritional Goals BEE in Kcals: Using Current wt Calories/Kcals/Kg Based on current wt 38.9 kg with consideration of decubitus ulcers Kcals Calculated 0926-3770 kcals/day (30-35 kcals/kg) Protein: Using Current wt Protein g/kg: Based on current wt 38.9 kg with consideration of decubitus ulcers Protein Calculated 47-58 gm/day (1.2-1.5 gm/kg) monitor renal labs Fluid: ml 1051-0826 ml/day (1 ml/kcal) Nutritional Problem 1. Problem Problem Increased protein needs related to Etiology altered skin integrity as evidenced by Signs/Symptoms: decubitus ulcers to sacral- coccygeal area and buttocks. Malnutrition Alert Protein-Calorie Malnutrition N/A Is there a minimum of two criteria No selected? Query Text:Check all the applicable criteria. A minimum of two criteria are recommended for diagnosis of either severe or non-severe malnutrition. Malnutrition Related to Morbid Obesity Malnutrition related to morbid obesity No Intervention/Recommendation Comments 1. Continue with current tube feeding regimen as it is adequate to meet estimated nutritional needs ideal for wound healing. 2. Reevaluate glycemic regimen due to hyperglycermia. Improved blood glucose levels will help with wound healing. Expected Outcomes/Goals Expected Outcomes/Goals Provide pt with 100% of estimated nutritional needs, improved skin integrity.
[2017-03-21] MEDS: Meropenem 500 MG in Sodium Chloride 0.9% 100 ML IV SCH ×2 (15:38→21:16)
--- NOTE | 2017-03-21 15:41 | General Progress Note ---
Subjective - Review of Systems Service Date: 03/21/17 Subjective: awake, nonverbal, comfortable Objective - Results Result Diagrams: 03/21/17 06:44 03/21/17 06:44 Recent Labs: Laboratory Last Values WBC 9.2 Th/cmm (4.8-10.8) D 03/21/17 06:44 RBC 3.08 Mil/cmm (3.80-5.10) L 03/21/17 06:44 Hgb 8.9 gm/dL (11.7-15.5) L 03/21/17 06:44 Hct 26.7 % (35.0-45.0) L 03/21/17 06:44 MCV 86.8 fl (81-100) 03/21/17 06:44 MCH 28.9 pg (27.0-31.0) 03/21/17 06:44 MCHC Differential 33.3 pg (28.0-36.0) 03/21/17 06:44 RDW 20.0 % (11.5-20.0) 03/21/17 06:44 Plt Count 164 Th/cmm (150-400) 03/21/17 06:44 MPV 8.4 fl 03/21/17 06:44 Neutrophils % 69.7 % (40.0-80.0) 03/20/17 05:50 Band Neutrophils % 14 % (0-10) H 03/21/17 06:44 Lymphocytes % 16.9 % (20.0-50.0) L 03/20/17 05:50 Monocytes % 8.9 % (2.0-10.0) 03/20/17 05:50 Eosinophils % 4.2 % (0.0-5.0) 03/20/17 05:50 Basophils % 0.3 % (0.0-2.0) 03/20/17 05:50 Neutrophils (Manual) 71 % (40-80) 03/21/17 06:44 Lymphocytes 6 % (20-50) L 03/21/17 06:44 Monocytes 7 % (2-10) 03/21/17 06:44 Eosinophils 2 % (0-5) 03/21/17 06:44 Platelet Estimate ADEQUATE (NORMAL) 03/21/17 06:44 Platelet Morphology NORMAL (NORMAL) 03/21/17 06:44 Anisocytosis 1+ 03/21/17 06:44 RBC Morph Micro Appear ABNORMAL (NORMAL) 03/21/17 06:44 Sodium 140 mEq/L (136-145) 03/21/17 06:44 Potassium 3.8 mEq/L (3.5-5.1) 03/21/17 06:44 Chloride 111 mEq/L (98-107) H 03/21/17 06:44 Carbon Dioxide 22.6 mEq/L (21.0-31.0) 03/21/17 06:44 Anion Gap 10.2 (7.0-16.0) 03/21/17 06:44 BUN 60 mg/dL (7-25) H 03/21/17 06:44 Creatinine 1.4 mg/dL (0.6-1.2) H 03/21/17 06:44 Est GFR ( Amer) 50.2 ml/min (>90) 03/21/17 06:44 Est GFR (Non-Af Amer) 41.5 ml/min 03/21/17 06:44 BUN/Creatinine Ratio 42.9 03/21/17 06:44 Glucose 306 mg/dL (70-105) H 03/21/17 06:44 POC Glucose 251 MG/DL (70 - 105) H 03/21/17 11:18 Hemoglobin A1c % 6.8 % (4.0-6.0) H 03/19/17 12:20 Uric Acid 7.5 mg/dL (2.3-6.6) H 03/21/17 06:44 Calcium 9.6 mg/dL (8.6-10.3) 03/21/17 06:44 Phosphorus 3.3 mg/dL (2.5-5.0) 03/21/17 06:44 Magnesium 2.1 mg/dL (1.9-2.7) 03/21/17 06:44 Total Bilirubin 0.4 mg/dL (0.3-1.0) 03/21/17 06:44 AST 13 U/L (13-39) 03/21/17 06:44 ALT 12 U/L (7-52) 03/21/17 06:44 Alkaline Phosphatase 100 U/L (34-104) 03/21/17 06:44 Total Protein 7.5 gm/dL (6.0-8.3) 03/21/17 06:44 Albumin 2.9 gm/dL (3.7-5.3) L 03/21/17 06:44 Globulin 4.6 gm/dL 03/21/17 06:44 Albumin/Globulin Ratio 0.6 (1.0-1.8) L 03/21/17 06:44 Lipase 14 U/L (11-82) 03/19/17 12:20 TSH 1.19 uIU/ml (0.34-5.60) 03/21/17 06:44 Urine Source [place] 03/19/17 17:00 Urine Color YELLOW 03/19/17 17:00 Urine Clarity CLOUDY (CLEAR) H 03/19/17 17:00 Urine pH 7.5 (4.6 - 8.0) 03/19/17 17:00 Ur Specific [place] 1.005 (1.005-1.030) 03/19/17 17:00 Urine Protein 100 mg/dL (NEGATIVE) H 03/19/17 17:00 Urine Glucose (UA) NEGATIVE mg/dL (NEGATIVE) 03/19/17 17:00 Urine Ketones 15 mg/dL (NEGATIVE) H 03/19/17 17:00 Urine Blood SMALL (NEGATIVE) H 03/19/17 17:00 Urine Nitrate NEGATIVE (NEGATIVE) 03/19/17 17:00 Urine Bilirubin NEGATIVE (NEGATIVE) 03/19/17 17:00 Urine Urobilinogen 0.2 E.U./dL (0.2 - 1.0) 03/19/17 17:00 Ur Leukocyte Esterase LARGE (NEGATIVE) H 03/19/17 17:00 Urine RBC 2-5 /hpf (0-5) 03/19/17 17:00 Urine WBC >100 /hpf (0-5) H 03/19/17 17:00 Ur Epithelial Cells FEW /lpf (FEW) 03/19/17 17:00 Urine Bacteria MANY /hpf (NONE SEEN) 03/19/17 17:00 - Physical Exam Vitals and I&O: Vital Signs Temp 97.4 F 03/21/17 10:12 Pulse 93 03/21/17 14:06 Resp 18 03/21/17 14:06 BP 118/66 03/21/17 10:12 Pulse Ox 96 03/21/17 14:06 Intake & Output 0803/21/17 03/21/17 18:59 06:59 18:59 Intake Total 650 1000 Output Total 1000 Balance -350 1000 Weight (lbs) 38.555 kg Intake: Intake, IV Amount 1000 Sodium Chloride 0.45% 1, 1000 000 ml @ 75 mls/hr IV . [id number] [facility] Rx#:[id number] Tube Feeding 650 Output: Urine 1000 Other: Stool Characteristics Liquid Liquid Liquid Active Medications: Current Medications Acetaminophen (Tylenol) 650 mg GT Q4HR PRN PRN Reason: Pain (Mild) Stop: 05/18/17 19:46 Acetaminophen (Tylenol 650mg/20.3ml Suspension) 650 mg GT Q4H PRN PRN Reason: FEVER >101 Stop: 05/18/17 19:46 Last Admin: 03/20/17 03:03 Dose: 650 mg Albuterol Sulfate (Albuterol 2.5mg/3ml Neb Ud) 2.5 mg HHN Q4HRT [facility] Stop: 05/18/17 22:59 Last Admin: 03/21/17 14:06 Dose: 2.5 mg Atorvastatin Calcium (Lipitor) 40 mg PO HS [facility] PRN Reason: Protocol Stop: 05/18/17 20:59 Last Admin: 03/20/17 23:06 Dose: 40 mg Folic Acid (Folate) 1 mg GT DAILY [facility] Stop: 05/19/17 08:59 Last Admin: 03/21/17 08:36 Dose: 1 mg Guaifenesin (Robitussin) 200 mg GT Q4HR PRN PRN Reason: Cough or Congestion Stop: 05/18/17 19:46 Sodium Chloride (Nacl 0.45%) 1,000 mls @ 75 mls/hr IV .[id number] [facility] Stop: 05/19/17 14:23 Last Admin: 03/21/17 05:32 Dose: 75 mls/hr Meropenem 500 mg/ Sodium (Chloride) 100 mls @ 100 mls/hr IV Q12HR [facility] Stop: 05/20/17 14:24 Insulin Aspart (Novolog Insulin Sliding Scale) 0 units SUBQ Q6HR CIHNG PRN Reason: Protocol Stop: 05/19/17 00:00 Last Admin: 03/21/17 11:26 Dose: 6 units Insulin Detemir (Levemir Insulin) 50 units SUBQ HS [facility] Stop: 05/18/17 20:59 Last Admin: 03/20/17 23:06 Dose: 50 units Insulin Human NPH (Novolin N) 15 units SUBQ BIDAC [facility] PRN Reason: Protocol Stop: 05/19/17 07:29 Last Admin: 03/21/17 07:58 Dose: 15 units Ipratropium [place] (Atrovent Neb 0.5mg/2.5ml) 0.5 mg HHN Q4HRT [facility] Stop: 05/18/17 22:59 Last Admin: 03/21/17 14:06 Dose: 0.5 mg Lactobacillus Rhamnosus (Culturelle) 1 each GT DAILY [facility] Stop: 05/19/17 08:59 Last Admin: 03/21/17 08:36 Dose: 1 each Lactulose (Cephulac) 20 gm GT DAILY [facility] Stop: 05/19/17 08:59 Last Admin: 03/21/17 08:35 Dose: 20 gm Loperamide HCl (Imodium) 2 mg GT Q4H PRN PRN Reason: DIARRHEA Stop: 05/18/17 19:46 Lorazepam (Ativan) 0.5 mg PO Q8HR PRN; Protocol PRN Reason: Anxiety Stop: 05/18/17 19:46 Magnesium Hydroxide (Milk Of Magnesia) 30 ml GT DAILY PRN PRN Reason: Constipation Stop: 05/18/17 19:46 Metoclopramide HCl (Reglan) 10 mg GT DAILY [facility] Stop: 05/19/17 08:59 Last Admin: 03/21/17 10:26 Dose: 10 mg Miscellaneous (Arginine/Ascorbate Sod/Lucas Ac [Arginaid Powder]) 1 each GT DAILY [facility] Stop: 05/19/17 08:59 Mupirocin (Bactroban Oint) 1 appl NS BID [facility] Stop: 03/25/17 09:01 Last Admin: 03/21/17 08:34 Dose: 1 appl Rivaroxaban (Xarelto) 10 mg GT DAILY [facility] Stop: 05/19/17 08:59 Last Admin: 03/21/17 08:36 Dose: 10 mg Vitamin A (Vitamin A & D) 5 gm TP DAILY [facility] Stop: 05/19/17 08:59 Last Admin: 03/21/17 08:36 Dose: 5 gm General: Alert, Cooperative, No acute distress HEENT: Atraumatic, PERRLA, EOMI, Mucous membr. moist/pink Neck: Supple, +2 carotid pulse wo bruit Cardiovascular: Regular rate, Normal S1, Normal S2 Lungs: Clear to auscultation Abdomen: Bowel sounds, Soft, Other (left colostomy bag) Extremities: no Edema Neurological: Sensation intact Skin: no Rash Psych/Mental Status: Mood NL - Procedures Procedures: Procedures Procedure Code Date BLOOD TRANSFUSION SERVICE 58299 12/16/16 BYPASS DESCENDING COLON TO CUTANEOUS, OPEN APPROACH [id number] 09/21/16 CHANGE FEEDING DEVICE IN UP INTEST TRACT, BREAST BUFFER APPROACH [id number] 09/21/16 CHANGE GASTROSTOMY TUBE 82714 09/21/16 COLOSTOMY 95349 09/21/16 AGNIESZKA BONE 20 SQ CM/< 94568 01/28/15 DIAGNOSTIC COLONOSCOPY 82466 03/06/16 EGD BIOPSY SINGLE/MULTIPLE 56367 03/06/16 EXCISION OF DESCENDING COLON, OPEN APPROACH [id number] 09/21/16 EXCISION OF DUODENUM, ENDO, DIAGN [id number] 03/06/16 EXCISION OF SACRUM, OPEN APPROACH [id number] 09/21/16 EXCISION OF STOMACH, ENDO, DIAGN [id number] 03/06/16 IMMOBILIZ/WOUND ATTN NEC 93.59 01/28/15 INSERT INDWELLING CATH 57.94 10/18/05 INSERT TEMP BLADDER CATH 16345 10/18/05 INSERTION OF INFUSION DEV INTO SUP VENA CAVA, PERC APPROACH [id number] 09/21/16 INSPECTION OF LOWER INTESTINAL TRACT, ENDO [id number] 03/06/16 INSPECTION OF UPPER INTESTINAL TRACT, ENDO [id number] 10/27/15 LOC EXC BONE LESION NEC 77.69 01/28/15 PACKED CELL TRANSFUSION 99.04 10/20/14 REMOVAL OF PRESSURE SORE 25015 09/21/16 REPLACE GASTROSTOMY TUBE 97.02 06/09/14 RESPIRATORY VENTILATION, 24-96 CONSECUTIVE HOURS [id number] 09/21/16 TRANSFUSE NONAUT RED BLOOD CELLS IN PERIPH VEIN, PERC 90589W1 12/16/16 VENT MGMT INPAT INIT DAY 03758 09/21/16 Assessment/Plan - Problem List Patient Problems: All Active Problems Anemia (Acute 03/06/16) D64.9 Dyspnea (Acute) R06.00 Fever, unspecified (Acute) R50.9 HYPOTENSION WITH TACHYCARDIA AND CONGEST (Acute) Hyperglycemia (Acute) R73.9 Hyperosmolality and/or hypernatremia (Acute) E87.0 Mental retardation (Acute) F79 Other abnormal clinical finding (Acute) R68.89 Pneumonia (Acute) J18.9 Staphylococcal sepsis (Acute) Uncontrolled diabetes mellitus (Acute) E11.65 Urinary tract infection (Acute) - Assessment Assessment: MALACHI B/L hydro 2nd to B/L ureteral calculi MRSA nares Malposition of Frost Cath Possibe stool output/rectum ? fistula ESBL E. Coli Cx UTI Functional Quadriplegia Intellectual Disability Cerebral Palsy Tpe 2 DM Anemia Fe def - Plan Plan: Lab - Result Diagrams 03/21/17 06:44 03/21/17 06:44 Current Medications Acetaminophen (Tylenol) 650 mg GT Q4HR PRN PRN Reason: Pain (Mild) Stop: 05/18/17 19:46 Acetaminophen (Tylenol 650mg/20.3ml Suspension) 650 mg GT Q4H PRN PRN Reason: FEVER >101 Stop: 05/18/17 19:46 Last Admin: 03/20/17 03:03 Dose: 650 mg Albuterol Sulfate (Albuterol 2.5mg/3ml Neb Ud) 2.5 mg HHN Q4HRT [facility] Stop: 05/18/17 22:59 Last Admin: 03/21/17 14:06 Dose: 2.5 mg Atorvastatin Calcium (Lipitor) 40 mg PO HS [facility] PRN Reason: Protocol Stop: 05/18/17 20:59 Last Admin: 03/20/17 23:06 Dose: 40 mg Folic Acid (Folate) 1 mg GT DAILY [facility] Stop: 05/19/17 08:59 Last Admin: 03/21/17 08:36 Dose: 1 mg Guaifenesin (Robitussin) 200 mg GT Q4HR PRN PRN Reason: Cough or Congestion Stop: 05/18/17 19:46 Sodium Chloride (Nacl 0.45%) 1,000 mls @ 75 mls/hr IV .[id number] [facility] Stop: 05/19/17 14:23 Last Admin: 03/21/17 05:32 Dose: 75 mls/hr Meropenem 500 mg/ Sodium (Chloride) 100 mls @ 100 mls/hr IV Q12HR [facility] Stop: 05/20/17 14:24 Insulin Aspart (Novolog Insulin Sliding Scale) 0 units SUBQ Q6HR [facility] PRN Reason: Protocol Stop: 05/19/17 00:00 Last Admin: 03/21/17 11:26 Dose: 6 units Insulin Detemir (Levemir Insulin) 50 units SUBQ HS [facility] Stop: 05/18/17 20:59 Last Admin: 03/20/17 23:06 Dose: 50 units Insulin Human NPH (Novolin N) 15 units SUBQ BIDAC [facility] PRN Reason: Protocol Stop: 05/19/17 07:29 Last Admin: 03/21/17 07:58 Dose: 15 units Ipratropium [place] (Atrovent Neb 0.5mg/2.5ml) 0.5 mg HHN Q4HRT [facility] Stop: 05/18/17 22:59 Last Admin: 03/21/17 14:06 Dose: 0.5 mg Lactobacillus Rhamnosus (Culturelle) 1 each GT DAILY [facility] Stop: 05/19/17 08:59 Last Admin: 03/21/17 08:36 Dose: 1 each Lactulose (Cephulac) 20 gm GT DAILY [facility] Stop: 05/19/17 08:59 Last Admin: 03/21/17 08:35 Dose: 20 gm Loperamide HCl (Imodium) 2 mg GT Q4H PRN PRN Reason: DIARRHEA Stop: 05/18/17 19:46 Lorazepam (Ativan) 0.5 mg PO Q8HR PRN; Protocol PRN Reason: Anxiety Stop: 05/18/17 19:46 Magnesium Hydroxide (Milk Of Magnesia) 30 ml GT DAILY PRN PRN Reason: Constipation Stop: 05/18/17 19:46 Metoclopramide HCl (Reglan) 10 mg GT DAILY [facility] Stop: 05/19/17 08:59 Last Admin: 03/21/17 10:26 Dose: 10 mg Miscellaneous (Arginine/Ascorbate Sod/Lucas Ac [Arginaid Powder]) 1 each GT DAILY [facility] Stop: 05/19/17 08:59 Mupirocin (Bactroban Oint) 1 appl NS BID [facility] Stop: 03/25/17 09:01 Last Admin: 03/21/17 08:34 Dose: 1 appl Rivaroxaban (Xarelto) 10 mg GT DAILY [facility] Stop: 05/19/17 08:59 Last Admin: 03/21/17 08:36 Dose: 10 mg Vitamin A (Vitamin A & D) 5 gm TP DAILY [facility] Stop: 05/19/17 08:59 Last Admin: 03/21/17 08:36 Dose: 5 gm Kidney fnc stable w/ Cr. of 1.4 conservative management of B/L hydro since this is a chronic condition as discussed w/attending continue IVF maintain ABx continue Detemir, NPH Nutritional Asmnt/Malnutr-PDOC - Dietary Evaluation Malnutrition Findings (Please click <Entered> for more info): Nutritional Asmnt/Malnutrition Start: 03/20/17 17: 34 Text: Status: Complete Freq: Document 03/20/17 17:34 [facility] (Rec: 03/20/17 17:48 [facility] [id number]) Nutritional Asmnt/Malnutrition Patient General Information Nutritional Screening Consult Diagnosis Acute UTi, gastrointestinal fistula Pertinent Medical Hx/Surgical Hx Mental retardation, cerebral palsy, DM, PEG, colostomy Subjective Information Nutrition Consult for low cedric score and gtube feeding received and completed. Pt is a 56-year-old female from [facility] admitted with chief complaint of stool coming out of rectum instead of colostomy bag. Pt is a poor historian. Pt has a small body frame with no muscle or fat depletion. RD confirmed feeding schedule with HALINA Jc. Current Diet Order/ Nutrition Support Diabetisource AC at 55 ml/hr x 20 [id number] kcals,66gm protein,900ml water Patient / S.O Can't verbalize diet edu Pertinent Medications Folate, Novolog, Levemir, Novolin N, Culturelle, Cephulac, Reglan, NaCl 0.45%, Vitamin A & D Pertinent Labs (03/19) Glucose 309H, A1C 6.8H (03/20) BUN 63H, Creatinine 1. 3H, Glucose 331H, POC Glucose 294H-317H Nutritional Hx/Data Height 1.5 m Height (Calculated Centimeters) 149.9 Current Weight (lbs) 38.782 kg Weight (Calculated Kilograms) 38.8 Weight (Calculated Grams) 40786.1 [place] Body Weight N/A Weight Status Approriate GI Symptoms GI Symptoms None Difficult in: Chewing Swallowing Food Allergies No Usual diet at home Glucerna 1.2 at 55 ml/hr x 20 hours, run [id number] Skin Integrity/Comment: Cedric 10. Decubitus ulcers to sacral-coccygeal area, buttocks Estimated Nutritional Goals BEE in Kcals: Using Current wt Calories/Kcals/Kg Based on current wt 38.9 kg with consideration of decubitus ulcers Kcals Calculated 4616-4304 kcals/day (30-35 kcals/kg) Protein: Using Current wt Protein g/kg: Based on current wt 38.9 kg with consideration of decubitus ulcers Protein Calculated 47-58 gm/day (1.2-1.5 gm/kg) monitor renal labs Fluid: ml 2003-9975 ml/day (1 ml/kcal) Nutritional Problem 1. Problem Problem Increased protein needs related to Etiology altered skin integrity as evidenced by Signs/Symptoms: decubitus ulcers to sacral- coccygeal area and buttocks. Malnutrition Alert Protein-Calorie Malnutrition N/A Is there a minimum of two criteria No selected? Query Text:Check all the applicable criteria. A minimum of two criteria are recommended for diagnosis of either severe or non-severe malnutrition. Malnutrition Related to Morbid Obesity Malnutrition related to morbid obesity No Intervention/Recommendation Comments 1. Continue with current tube feeding regimen as it is adequate to meet estimated nutritional needs ideal for wound healing. 2. Reevaluate glycemic regimen due to hyperglycermia. Improved blood glucose levels will help with wound healing. Expected Outcomes/Goals Expected Outcomes/Goals Provide pt with 100% of estimated nutritional needs, improved skin integrity.
--- NOTE | 2017-03-21 22:05 | Admit Criteria Form ---
Admit Criteria Forms - Admit Criteria Diagnosis: URINARY COMPLICATIONS Clinical Indications for Inpatient Care (Place 'X' for any and all applicable criteria): Ongoing inpatient care may be indicated for urinary complications with ANY ONE of the following: [X ]I. Urinary tract infection requiring inpatient care as indicated by ANY ONE of the following(8)(19)(20): [ ]a) Severe symptoms (eg, high fever, severe pain) [ ]b) Vomiting or dehydration requiring ongoing inpatient care [ X]c) IV antibiotic needs that cannot be managed at lower level of care [ ]d) Hemodynamic instability [ ]e) Obstruction of collecting system by stone or tumor [ ]II. Urinary retention requiring drainage or surgery (3)(4)(5)(17)(18) [ ]III. Renal failure (Use Renal Failure Criteria for further information.) [ ]IV. Oliguria(30) [ ]V. Post obstructive diuresis requiring close monitoring of urine output and intravenous compensation for excessive fluid losses(33) Extended stay beyond goal length of stay for primary condition may be needed until ALL of the following are present(3)(4)(5)(8): [ ]a) Renal function (creatinine) at baseline, or daily decreases in creatinine consistent with renal function return [ ]b) Voiding adequately or with urinary catheter or percutaneous suprapubic tube and management regimen in place that is performable at lower level of care. [ ]c) Urine output adequate [ ]d) Fever absent or resolving [ ]e) Infection absent or treatable at next level of care The original [employer] content created by [employer] has been revised. The portions of the content which have been revised are identified through the use of italic text or in bold, and [facility] has neither reviewed nor approved the modified material. All other unmodified content is copyright [employer] [facility] [employer] Please see references footnoted in the original [facility] [employer] edition 2016 Admit Criteria Met?: Yes
[2017-03-22] MEDS: INSULIN ASPART SLIDING SCALE 100 UNITS/ML UNIT SUBQ SCH ×4 (00:18→17:28)
[2017-03-22] MEDS: Insulin Detemir 100 units/mL 10mL Vial SUBQ SCH ×2 (00:18→20:58)
[2017-03-22] MEDS: Sodium Chloride 0.45% 1,000 ML IV SCH ×2 (02:21→15:30)
[2017-03-22] MEDS: Albuterol Nebulizer 2.5mg/3mL HHN SCH ×5 (03:28→23:12)
[2017-03-22] MEDS: Ipratropium Neb 0.5 mg/2.5 mL UD HHN SCH ×5 (03:28→23:12)
[2017-03-22 06:15] LABS: ANION GAP 12.9 (7.0-16.0); CALCIUM SERUM 9.9 mg/dL (8.6-10.3); CARBON DIOXIDE 20.4 mEq/L (21.0-31.0); CREATININE - SERUM 1.4 mg/dL (0.6-1.2); POTASSIUM SERUM 4.3 mEq/L (3.5-5.1)
[2017-03-22] MEDS: INSULIN HUMAN ISOPHANE (NPH) 100 UNITS/ML SUBQ SCH ×2 (07:11→16:38)
[2017-03-22] MEDS: Vitamin A/Vitamin D 5 gm Packet TP SCH (08:13)
[2017-03-22] MEDS: Meropenem 500 MG in Sodium Chloride 0.9% 100 ML IV SCH ×2 (08:18→20:58)
--- NOTE | 2017-03-22 08:39 | Diagnostic Imaging Report ---
Exam: CT examination of the abdomen pelvis. HISTORY: Colonic fistula Total DLP equals 341 CTDI equals 7.7 Findings: Multiple contiguous thin section of the abdomen pelvis obtained from lower thorax to the pubic symphysis with administration of oral contrast material intravenous contrast was not utilized no prior studies available for comparison. The study demonstrates large hiatal hernia. The liver and spleen are intact. There is evidence of splenomegaly. The gallbladder is distended. HIDA scan might be helpful. The adrenal glands intact. The kidneys demonstrate bilateral hydronephrosis with stent cord calculi. A 2 cm calculus is noted impacted in the left UPJ. There is evidence for air collection in the left renal collecting system which might represent a infectious pyelonephritis clinical correlation recommended. The abdominal aorta is calcified. Gastrostomy tube in the stomach. Oral contrast progressive normal fashion through small bowel loops into the colon. Chronic pancreatic calcifications are noted There is no evidence for fistula, fecal impaction in the rectum. Urinary bladder contains air and a Uribe catheter. There is evidence of for soft tissue swelling in the right hip joint with postoperative rodding of the right femur. Clinical correlation recommended. Subcutaneous soft tissue swelling is noted IMPRESSION: 1. Large hiatal hernia Splenomegaly Distended gallbladder Left-sided colostomy, no evidence for fistula. Bilateral hydronephrosis with a staghorn calculi bilaterally. There is air collection in the left kidney, inflammatory changes question of pyelonephritis. Subcutaneous soft tissue swelling right hip joint questionable inflammatory changes.
[2017-03-22] MEDS: Lactulose 10 Gm/15 mL 30mL UDC GT SCH (09:33)
[2017-03-22] MEDS: Lactobacillus Rhamnosus 10 Billion CFU Capsule GT SCH (09:33)
[2017-03-22] MEDS: Multivitamin w/ Minerals Tab GT SCH (09:33)
--- NOTE | 2017-03-22 11:52 | Internal Medicine Prog Note ---
Internal Medicine Subjective - Subjective Patient seen and examined:: with staff, chart reviewed Patient is:: awake, non-verbal, non-interactive, in bed, congested Patient Complaints of:: congestion Per staff patient has:: no adverse event, agitated, confused, tolerating meds Internal Medicine Objective - Results Result Diagrams: 03/21/17 06:44 03/22/17 05:40 Recent Labs: Laboratory Last Values WBC 9.2 Th/cmm (4.8-10.8) D 03/21/17 06:44 RBC 3.08 Mil/cmm (3.80-5.10) L 03/21/17 06:44 Hgb 8.9 gm/dL (11.7-15.5) L 03/21/17 06:44 Hct 26.7 % (35.0-45.0) L 03/21/17 06:44 MCV 86.8 fl (81-100) 03/21/17 06:44 MCH 28.9 pg (27.0-31.0) 03/21/17 06:44 MCHC Differential 33.3 pg (28.0-36.0) 03/21/17 06:44 RDW 20.0 % (11.5-20.0) 03/21/17 06:44 Plt Count 164 Th/cmm (150-400) 03/21/17 06:44 MPV 8.4 fl 03/21/17 06:44 Neutrophils % 69.7 % (40.0-80.0) 03/20/17 05:50 Band Neutrophils % 14 % (0-10) H 03/21/17 06:44 Lymphocytes % 16.9 % (20.0-50.0) L 03/20/17 05:50 Monocytes % 8.9 % (2.0-10.0) 03/20/17 05:50 Eosinophils % 4.2 % (0.0-5.0) 03/20/17 05:50 Basophils % 0.3 % (0.0-2.0) 03/20/17 05:50 Neutrophils (Manual) 71 % (40-80) 03/21/17 06:44 Lymphocytes 6 % (20-50) L 03/21/17 06:44 Monocytes 7 % (2-10) 03/21/17 06:44 Eosinophils 2 % (0-5) 03/21/17 06:44 Platelet Estimate ADEQUATE (NORMAL) 03/21/17 06:44 Platelet Morphology NORMAL (NORMAL) 03/21/17 06:44 Anisocytosis 1+ 03/21/17 06:44 RBC Morph Micro Appear ABNORMAL (NORMAL) 03/21/17 06:44 Eos Smear Source URINE 03/21/17 19:01 Eos Smear Total Cells FEW EOSINOPHILS SEEN (NONE SEEN) 03/21/17 19:01 Sodium 144 mEq/L (136-145) 03/22/17 05:40 Potassium 4.3 mEq/L (3.5-5.1) 03/22/17 05:40 Chloride 115 mEq/L (98-107) H 03/22/17 05:40 Carbon Dioxide 20.4 mEq/L (21.0-31.0) L 03/22/17 05:40 Anion Gap 12.9 (7.0-16.0) 03/22/17 05:40 BUN 49 mg/dL (7-25) H 03/22/17 05:40 Creatinine 1.4 mg/dL (0.6-1.2) H 03/22/17 05:40 Est GFR ( Amer) 50.2 ml/min (>90) 03/22/17 05:40 Est GFR (Non-Af Amer) 41.5 ml/min 03/22/17 05:40 BUN/Creatinine Ratio 35.0 03/22/17 05:40 Glucose 243 mg/dL (70-105) H 03/22/17 05:40 POC Glucose 252 MG/DL (70 - 105) H 03/22/17 11:39 Hemoglobin A1c % 6.8 % (4.0-6.0) H 03/19/17 12:20 Uric Acid 7.5 mg/dL (2.3-6.6) H 03/21/17 06:44 Calcium 9.9 mg/dL (8.6-10.3) 03/22/17 05:40 Phosphorus 3.3 mg/dL (2.5-5.0) 03/21/17 06:44 Magnesium 2.1 mg/dL (1.9-2.7) 03/21/17 06:44 Total Bilirubin 0.4 mg/dL (0.3-1.0) 03/21/17 06:44 AST 13 U/L (13-39) 03/21/17 06:44 ALT 12 U/L (7-52) 03/21/17 06:44 Alkaline Phosphatase 100 U/L (34-104) 03/21/17 06:44 Total Protein 7.5 gm/dL (6.0-8.3) 03/21/17 06:44 Albumin 2.9 gm/dL (3.7-5.3) L 03/21/17 06:44 Globulin 4.6 gm/dL 03/21/17 06:44 Albumin/Globulin Ratio 0.6 (1.0-1.8) L 03/21/17 06:44 Lipase 14 U/L (11-82) 03/19/17 12:20 TSH 1.19 uIU/ml (0.34-5.60) 03/21/17 06:44 Urine Source [place] 03/19/17 17:00 Urine Color YELLOW 03/19/17 17:00 Urine Clarity CLOUDY (CLEAR) H 03/19/17 17:00 Urine pH 7.5 (4.6 - 8.0) 03/19/17 17:00 Ur Specific [place] 1.005 (1.005-1.030) 03/19/17 17:00 Urine Protein 100 mg/dL (NEGATIVE) H 03/19/17 17:00 Urine Glucose (UA) NEGATIVE mg/dL (NEGATIVE) 03/19/17 17:00 Urine Ketones 15 mg/dL (NEGATIVE) H 03/19/17 17:00 Urine Blood SMALL (NEGATIVE) H 03/19/17 17:00 Urine Nitrate NEGATIVE (NEGATIVE) 03/19/17 17:00 Urine Bilirubin NEGATIVE (NEGATIVE) 03/19/17 17:00 Urine Urobilinogen 0.2 E.U./dL (0.2 - 1.0) 03/19/17 17:00 Ur Leukocyte Esterase LARGE (NEGATIVE) H 03/19/17 17:00 Urine RBC 2-5 /hpf (0-5) 03/19/17 17:00 Urine WBC >100 /hpf (0-5) H 03/19/17 17:00 Ur Epithelial Cells FEW /lpf (FEW) 03/19/17 17:00 Urine Bacteria MANY /hpf (NONE SEEN) 03/19/17 17:00 Ur Random Sodium 67 mmol/L 03/21/17 19:01 Urine Creatinine 16.0 mg/dl (28.0-217.0) L 03/21/17 19:01 - Physical Exam Vitals and I&O: Vital Signs Temp 98.3 F 03/22/17 08:00 Pulse 93 03/22/17 08:00 Resp 20 03/22/17 11:01 BP 105/72 03/22/17 08:00 Pulse Ox 100 03/22/17 08:00 Intake & Output 03/21/17 03/22/17 03/22/17 18:59 06:59 18:59 Intake Total 1100 100 Output Total 700 Balance 1100 100 -700 Weight (lbs) 38.555 kg 38.465 kg Intake: Intake, IV Amount 1100 100 Meropenem 500 mg In 100 100 Sodium Chloride 0.9% 100 ml @ 100 mls/hr IV Q12HR [facility] Rx#:[id number] Sodium Chloride 0.45% 1, 1000 000 ml @ 75 mls/hr IV . [id number] [facility] Rx#:[id number] Output: Urine 700 Other: Stool Characteristics Liquid Liquid Liquid Active Medications: Current Medications Acetaminophen (Tylenol) 650 mg GT Q4HR PRN PRN Reason: Pain (Mild) Stop: 05/18/17 19:46 Acetaminophen (Tylenol 650mg/20.3ml Suspension) 650 mg GT Q4H PRN PRN Reason: FEVER >101 Stop: 05/18/17 19:46 Last Admin: 03/20/17 03:03 Dose: 650 mg Albuterol Sulfate (Albuterol 2.5mg/3ml Neb Ud) 2.5 mg HHN Q4HRT [facility] Stop: 05/18/17 22:59 Last Admin: 03/22/17 07:29 Dose: 2.5 mg Atorvastatin Calcium (Lipitor) 40 mg PO HS CHING PRN Reason: Protocol Stop: 05/18/17 20:59 Last Admin: 03/21/17 21:16 Dose: 40 mg Folic Acid (Folate) 1 mg GT DAILY [facility] Stop: 05/19/17 08:59 Last Admin: 03/22/17 09:33 Dose: 1 mg Guaifenesin (Robitussin) 200 mg GT Q4HR PRN PRN Reason: Cough or Congestion Stop: 05/18/17 19:46 Sodium Chloride (Nacl 0.45%) 1,000 mls @ 75 mls/hr IV .[id number] [facility] Stop: 05/19/17 14:23 Last Admin: 03/22/17 02:21 Dose: 75 mls/hr Meropenem 500 mg/ Sodium (Chloride) 100 mls @ 100 mls/hr IV Q12HR [facility] Stop: 05/20/17 14:24 Last Admin: 03/22/17 08:18 Dose: 100 mls/hr Insulin Aspart (Novolog Insulin Sliding Scale) 0 units SUBQ Q6HR CHING PRN Reason: Protocol Stop: 05/19/17 00:00 Last Admin: 03/22/17 07:12 Dose: 4 units Insulin Detemir (Levemir Insulin) 50 units SUBQ HS [facility] Stop: 05/18/17 20:59 Last Admin: 03/22/17 00:18 Dose: 50 units Insulin Human NPH (Novolin N) 18 units SUBQ BIDAC CHING PRN Reason: Protocol Stop: 05/19/17 07:29 Ipratropium Lucan (Atrovent Neb 0.5mg/2.5ml) 0.5 mg HHN Q4HRT [facility] Stop: 05/18/17 22:59 Last Admin: 03/22/17 07:29 Dose: 0.5 mg Lactobacillus Rhamnosus (Culturelle) 1 each GT DAILY [facility] Stop: 05/19/17 08:59 Last Admin: 03/22/17 09:33 Dose: 1 each Lactulose (Cephulac) 20 gm GT DAILY [facility] Stop: 05/19/17 08:59 Last Admin: 03/22/17 09:33 Dose: 20 gm Loperamide HCl (Imodium) 2 mg GT Q4H PRN PRN Reason: DIARRHEA Stop: 05/18/17 19:46 Lorazepam (Ativan) 0.5 mg PO Q8HR PRN; Protocol PRN Reason: Anxiety Stop: 05/18/17 19:46 Magnesium Hydroxide (Milk Of Magnesia) 30 ml GT DAILY PRN PRN Reason: Constipation Stop: 05/18/17 19:46 Metoclopramide HCl (Reglan) 10 mg GT DAILY [facility] Stop: 05/19/17 08:59 Last Admin: 03/22/17 09:33 Dose: 10 mg Miscellaneous (Arginine/Ascorbate Sod/Lucas Ac [Arginaid Powder]) 1 each GT DAILY [facility]ING Stop: 05/19/17 08:59 Mupirocin (Bactroban Oint) 1 appl NS BID CHING Stop: 03/25/17 09:01 Last Admin: 03/22/17 08:13 Dose: 1 appl Rivaroxaban (Xarelto) 10 mg GT DAILY [facility] Stop: 05/19/17 08:59 Last Admin: 03/22/17 09:33 Dose: 10 mg Vitamin A (Vitamin A & D) 5 gm TP DAILY [facility] Stop: 05/19/17 08:59 Last Admin: 03/22/17 08:13 Dose: 5 gm General: lethargic, demented, bilateral temporal wasting, cachectic, appears older HEENT: dry oral mucosa, thinning hair, poor dentition Neck: Supple, No thyromegaly Lungs: congested, rales, ronchi Cardiovascular: RRR, Normal S1, Normal S2 Abdomen: soft, non-tender, +GT, other (colostomy) Extremities: excoriation, contracture, ulcers stage 2, ulcers stage 4 Neurological: lethargic - Procedures Procedures: Procedures Procedure Code Date BLOOD TRANSFUSION SERVICE 07348 12/16/16 BYPASS DESCENDING COLON TO CUTANEOUS, OPEN APPROACH [id number] 09/21/16 CHANGE FEEDING DEVICE IN UP INTEST TRACT, [employer] IN[employer] APPROACH [id number] 09/21/16 CHANGE GASTROSTOMY TUBE 74982 09/21/16 COLOSTOMY 74431 09/21/16 AGNIESZKA BONE 20 SQ CM/< 69235 01/28/15 DIAGNOSTIC COLONOSCOPY 18864 03/06/16 EGD BIOPSY SINGLE/MULTIPLE 18397 03/06/16 EXCISION OF DESCENDING COLON, OPEN APPROACH [id number] 09/21/16 EXCISION OF DUODENUM, ENDO, DIAGN [id number] 03/06/16 EXCISION OF SACRUM, OPEN APPROACH [id number] 09/21/16 EXCISION OF STOMACH, ENDO, DIAGN [id number] 03/06/16 IMMOBILIZ/WOUND ATTN NEC 93.59 01/28/15 INSERT INDWELLING CATH 57.94 10/18/05 INSERT TEMP BLADDER CATH 33373 10/18/05 INSERTION OF INFUSION DEV INTO SUP VENA CAVA, PERC APPROACH [id number] 09/21/16 INSPECTION OF LOWER INTESTINAL TRACT, ENDO [id number] 03/06/16 INSPECTION OF UPPER INTESTINAL TRACT, ENDO [id number] 10/27/15 LOC EXC BONE LESION NEC 77.69 01/28/15 PACKED CELL TRANSFUSION 99.04 10/20/14 REMOVAL OF PRESSURE SORE 30368 09/21/16 REPLACE GASTROSTOMY TUBE 97.02 06/09/14 RESPIRATORY VENTILATION, 24-96 CONSECUTIVE HOURS [id number] 09/21/16 TRANSFUSE NONAUT RED BLOOD CELLS IN PERIPH VEIN, PERC [id number] 12/16/16 VENT MGMT INPAT INIT DAY 20624 09/21/16 Internal Medicine Assmt/Plan - Assessment Assessment: abd pain possible GI FISTULA HTN DM2 MRSA NARES ACUTE UTI dehydration, renal failure' timmy hydroneprosis htn - Plan Plan: cont on iv abx o2 bronchodilator will adjust abx gi and renal follow up dw rn will adjust insulin coverage Nutritional Asmnt/Malnutr-PDOC - Dietary Evaluation Malnutrition Findings (Please click <Entered> for more info): Nutritional Asmnt/Malnutrition Start: 03/20/17 17: 34 Text: Status: Complete Freq: Document 03/20/17 17:34 [facility] (Rec: 03/20/17 17:48 [facility] [id number]) Nutritional Asmnt/Malnutrition Patient General Information Nutritional Screening Consult Diagnosis Acute UTi, gastrointestinal fistula Pertinent Medical Hx/Surgical Hx Mental retardation, cerebral palsy, DM, PEG, colostomy Subjective Information Nutrition Consult for low cedric score and gtube feeding received and completed. Pt is a 56-year-old female from [facility] admitted with chief complaint of stool coming out of rectum instead of colostomy bag. Pt is a poor historian. Pt has a small body frame with no muscle or fat depletion. RD confirmed feeding schedule with HALINA Jc. Current Diet Order/ Nutrition Support Diabetisource AC at 55 ml/hr x 20 [id number]=[id number] kcals,66gm protein,900ml water Patient / S.O Can't verbalize diet edu Pertinent Medications Folate, Novolog, Levemir, Novolin N, Culturelle, Cephulac, Reglan, NaCl 0.45%, Vitamin A & D Pertinent Labs (03/19) Glucose 309H, A1C 6.8H (03/20) BUN 63H, Creatinine 1. 3H, Glucose 331H, POC Glucose 294H-317H Nutritional Hx/Data Height 1.5 m Height (Calculated Centimeters) 149.9 Current Weight (lbs) 38.782 kg Weight (Calculated Kilograms) 38.8 Weight (Calculated Grams) 88930.1 [place] Body Weight N/A Weight Status Approriate GI Symptoms GI Symptoms None Difficult in: Chewing Swallowing Food Allergies No Usual diet at home Glucerna 1.2 at 55 ml/hr x 20 hours, run [id number] Skin Integrity/Comment: Cedric 10. Decubitus ulcers to sacral-coccygeal area, buttocks Estimated Nutritional Goals BEE in Kcals: Using Current wt Calories/Kcals/Kg Based on current wt 38.9 kg with consideration of decubitus ulcers Kcals Calculated 5080-5215 kcals/day (30-35 kcals/kg) Protein: Using Current wt Protein g/kg: Based on current wt 38.9 kg with consideration of decubitus ulcers Protein Calculated 47-58 gm/day (1.2-1.5 gm/kg) monitor renal labs Fluid: ml 4519-3148 ml/day (1 ml/kcal) Nutritional Problem 1. Problem Problem Increased protein needs related to Etiology altered skin integrity as evidenced by Signs/Symptoms: decubitus ulcers to sacral- coccygeal area and buttocks. Malnutrition Alert Protein-Calorie Malnutrition N/A Is there a minimum of two criteria No selected? Query Text:Check all the applicable criteria. A minimum of two criteria are recommended for diagnosis of either severe or non-severe malnutrition. Malnutrition Related to Morbid Obesity Malnutrition related to morbid obesity No Intervention/Recommendation Comments 1. Continue with current tube feeding regimen as it is adequate to meet estimated nutritional needs ideal for wound healing. 2. Reevaluate glycemic regimen due to hyperglycermia. Improved blood glucose levels will help with wound healing. Expected Outcomes/Goals Expected Outcomes/Goals Provide pt with 100% of estimated nutritional needs, improved skin integrity.
--- NOTE | 2017-03-22 13:57 | General Progress Note ---
Subjective - Review of Systems Service Date: 03/22/17 Subjective: awake, nonverbal, comfortable Objective - Results Result Diagrams: 03/21/17 06:44 03/22/17 05:40 Recent Labs: Laboratory Last Values WBC 9.2 Th/cmm (4.8-10.8) D 03/21/17 06:44 RBC 3.08 Mil/cmm (3.80-5.10) L 03/21/17 06:44 Hgb 8.9 gm/dL (11.7-15.5) L 03/21/17 06:44 Hct 26.7 % (35.0-45.0) L 03/21/17 06:44 MCV 86.8 fl (81-100) 03/21/17 06:44 MCH 28.9 pg (27.0-31.0) 03/21/17 06:44 MCHC Differential 33.3 pg (28.0-36.0) 03/21/17 06:44 RDW 20.0 % (11.5-20.0) 03/21/17 06:44 Plt Count 164 Th/cmm (150-400) 03/21/17 06:44 MPV 8.4 fl 03/21/17 06:44 Neutrophils % 69.7 % (40.0-80.0) 03/20/17 05:50 Band Neutrophils % 14 % (0-10) H 03/21/17 06:44 Lymphocytes % 16.9 % (20.0-50.0) L 03/20/17 05:50 Monocytes % 8.9 % (2.0-10.0) 03/20/17 05:50 Eosinophils % 4.2 % (0.0-5.0) 03/20/17 05:50 Basophils % 0.3 % (0.0-2.0) 03/20/17 05:50 Neutrophils (Manual) 71 % (40-80) 03/21/17 06:44 Lymphocytes 6 % (20-50) L 03/21/17 06:44 Monocytes 7 % (2-10) 03/21/17 06:44 Eosinophils 2 % (0-5) 03/21/17 06:44 Platelet Estimate ADEQUATE (NORMAL) 03/21/17 06:44 Platelet Morphology NORMAL (NORMAL) 03/21/17 06:44 Anisocytosis 1+ 03/21/17 06:44 RBC Morph Micro Appear ABNORMAL (NORMAL) 03/21/17 06:44 Eos Smear Source URINE 03/21/17 19:01 Eos Smear Total Cells FEW EOSINOPHILS SEEN (NONE SEEN) 03/21/17 19:01 Sodium 144 mEq/L (136-145) 03/22/17 05:40 Potassium 4.3 mEq/L (3.5-5.1) 03/22/17 05:40 Chloride 115 mEq/L (98-107) H 03/22/17 05:40 Carbon Dioxide 20.4 mEq/L (21.0-31.0) L 03/22/17 05:40 Anion Gap 12.9 (7.0-16.0) 03/22/17 05:40 BUN 49 mg/dL (7-25) H 03/22/17 05:40 Creatinine 1.4 mg/dL (0.6-1.2) H 03/22/17 05:40 Est GFR ( Amer) 50.2 ml/min (>90) 03/22/17 05:40 Est GFR (Non-Af Amer) 41.5 ml/min 03/22/17 05:40 BUN/Creatinine Ratio 35.0 03/22/17 05:40 Glucose 243 mg/dL (70-105) H 03/22/17 05:40 POC Glucose 252 MG/DL (70 - 105) H 03/22/17 11:39 Hemoglobin A1c % 6.8 % (4.0-6.0) H 03/19/17 12:20 Uric Acid 7.5 mg/dL (2.3-6.6) H 03/21/17 06:44 Calcium 9.9 mg/dL (8.6-10.3) 03/22/17 05:40 Phosphorus 3.3 mg/dL (2.5-5.0) 03/21/17 06:44 Magnesium 2.1 mg/dL (1.9-2.7) 03/21/17 06:44 Total Bilirubin 0.4 mg/dL (0.3-1.0) 03/21/17 06:44 AST 13 U/L (13-39) 03/21/17 06:44 ALT 12 U/L (7-52) 03/21/17 06:44 Alkaline Phosphatase 100 U/L (34-104) 03/21/17 06:44 Total Protein 7.5 gm/dL (6.0-8.3) 03/21/17 06:44 Albumin 2.9 gm/dL (3.7-5.3) L 03/21/17 06:44 Globulin 4.6 gm/dL 03/21/17 06:44 Albumin/Globulin Ratio 0.6 (1.0-1.8) L 03/21/17 06:44 Lipase 14 U/L (11-82) 03/19/17 12:20 TSH 1.19 uIU/ml (0.34-5.60) 03/21/17 06:44 Urine Source [place] 03/19/17 17:00 Urine Color YELLOW 03/19/17 17:00 Urine Clarity CLOUDY (CLEAR) H 03/19/17 17:00 Urine pH 7.5 (4.6 - 8.0) 03/19/17 17:00 Ur Specific [place] 1.005 (1.005-1.030) 03/19/17 17:00 Urine Protein 100 mg/dL (NEGATIVE) H 03/19/17 17:00 Urine Glucose (UA) NEGATIVE mg/dL (NEGATIVE) 03/19/17 17:00 Urine Ketones 15 mg/dL (NEGATIVE) H 03/19/17 17:00 Urine Blood SMALL (NEGATIVE) H 03/19/17 17:00 Urine Nitrate NEGATIVE (NEGATIVE) 03/19/17 17:00 Urine Bilirubin NEGATIVE (NEGATIVE) 03/19/17 17:00 Urine Urobilinogen 0.2 E.U./dL (0.2 - 1.0) 03/19/17 17:00 Ur Leukocyte Esterase LARGE (NEGATIVE) H 03/19/17 17:00 Urine RBC 2-5 /hpf (0-5) 03/19/17 17:00 Urine WBC >100 /hpf (0-5) H 03/19/17 17:00 Ur Epithelial Cells FEW /lpf (FEW) 03/19/17 17:00 Urine Bacteria MANY /hpf (NONE SEEN) 03/19/17 17:00 Ur Random Sodium 67 mmol/L 03/21/17 19:01 Urine Creatinine 16.0 mg/dl (28.0-217.0) L 03/21/17 19:01 - Physical Exam Vitals and I&O: Vital Signs Temp 98.3 F 03/22/17 12:00 Pulse 74 03/22/17 12:00 Resp 18 03/22/17 12:00 BP 97/58 03/22/17 12:00 Pulse Ox 98 03/22/17 12:00 Intake & Output 03/21/17 03/22/17 03/22/17 18:59 06:59 18:59 Intake Total 1100 100 100 Output Total 700 Balance 1100 100 -600 Weight (lbs) 38.555 kg 38.465 kg Intake: Intake, IV Amount 1100 100 100 Meropenem 500 mg In 100 100 100 Sodium Chloride 0.9% 100 ml @ 100 mls/hr IV Q12HR [facility] Rx#:[id number] Sodium Chloride 0.45% 1, 1000 000 ml @ 75 mls/hr IV . [id number] [facility] Rx#:[id number] Output: Urine 700 Other: Stool Characteristics Liquid Liquid Liquid Active Medications: Current Medications Acetaminophen (Tylenol) 650 mg GT Q4HR PRN PRN Reason: Pain (Mild) Stop: 05/18/17 19:46 Acetaminophen (Tylenol 650mg/20.3ml Suspension) 650 mg GT Q4H PRN PRN Reason: FEVER >101 Stop: 05/18/17 19:46 Last Admin: 03/20/17 03:03 Dose: 650 mg Albuterol Sulfate (Albuterol 2.5mg/3ml Neb Ud) 2.5 mg HHN Q4HRT [facility] Stop: 05/18/17 22:59 Last Admin: 03/22/17 11:54 Dose: 2.5 mg Atorvastatin Calcium (Lipitor) 40 mg PO HS [facility] PRN Reason: Protocol Stop: 05/18/17 20:59 Last Admin: 03/21/17 21:16 Dose: 40 mg Folic Acid (Folate) 1 mg GT DAILY [facility] Stop: 05/19/17 08:59 Last Admin: 03/22/17 09:33 Dose: 1 mg Guaifenesin (Robitussin) 200 mg GT Q4HR PRN PRN Reason: Cough or Congestion Stop: 05/18/17 19:46 Sodium Chloride (Nacl 0.45%) 1,000 mls @ 75 mls/hr IV .[id number] [facility] Stop: 05/19/17 14:23 Last Admin: 03/22/17 02:21 Dose: 75 mls/hr Meropenem 500 mg/ Sodium (Chloride) 100 mls @ 100 mls/hr IV Q12HR [facility] Stop: 05/20/17 14:24 Last Infusion: 03/22/17 09:18 Dose: Infused Insulin Aspart (Novolog Insulin Sliding Scale) 0 units SUBQ Q6HR [facility] PRN Reason: Protocol Stop: 05/19/17 00:00 Last Admin: 03/22/17 12:20 Dose: 6 units Insulin Detemir (Levemir Insulin) 50 units SUBQ HS [facility] Stop: 05/18/17 20:59 Last Admin: 03/22/17 00:18 Dose: 50 units Insulin Human NPH (Novolin N) 18 units SUBQ BIDAC [facility] PRN Reason: Protocol Stop: 05/19/17 07:29 Ipratropium [place] (Atrovent Neb 0.5mg/2.5ml) 0.5 mg HHN Q4HRT [facility] Stop: 05/18/17 22:59 Last Admin: 03/22/17 11:54 Dose: 0.5 mg Lactobacillus Rhamnosus (Culturelle) 1 each GT DAILY [facility] Stop: 05/19/17 08:59 Last Admin: 03/22/17 09:33 Dose: 1 each Lactulose (Cephulac) 20 gm GT DAILY [facility] Stop: 05/19/17 08:59 Last Admin: 03/22/17 09:33 Dose: 20 gm Loperamide HCl (Imodium) 2 mg GT Q4H PRN PRN Reason: DIARRHEA Stop: 05/18/17 19:46 Lorazepam (Ativan) 0.5 mg PO Q8HR PRN; Protocol PRN Reason: Anxiety Stop: 05/18/17 19:46 Magnesium Hydroxide (Milk Of Magnesia) 30 ml GT DAILY PRN PRN Reason: Constipation Stop: 05/18/17 19:46 Metoclopramide HCl (Reglan) 10 mg GT DAILY [facility] Stop: 05/19/17 08:59 Last Admin: 03/22/17 09:33 Dose: 10 mg Miscellaneous (Arginine/Ascorbate Sod/Lucas Ac [Arginaid Powder]) 1 each GT DAILY [facility] Stop: 05/19/17 08:59 Mupirocin (Bactroban Oint) 1 appl NS BID [facility] Stop: 03/25/17 09:01 Last Admin: 03/22/17 08:13 Dose: 1 appl Rivaroxaban (Xarelto) 10 mg GT DAILY [facility] Stop: 05/19/17 08:59 Last Admin: 03/22/17 09:33 Dose: 10 mg Vitamin A (Vitamin A & D) 5 gm TP DAILY [facility] Stop: 05/19/17 08:59 Last Admin: 03/22/17 08:13 Dose: 5 gm General: Alert, Cooperative, No acute distress HEENT: Atraumatic, PERRLA, EOMI, Mucous membr. moist/pink Neck: Supple, +2 carotid pulse wo bruit Cardiovascular: Regular rate, Normal S1, Normal S2 Lungs: Clear to auscultation Abdomen: Bowel sounds, Soft, Other (left colostomy bag) Extremities: no Edema Neurological: Sensation intact Skin: no Rash Psych/Mental Status: Mood NL - Procedures Procedures: Procedures Procedure Code Date BLOOD TRANSFUSION SERVICE 47645 12/16/16 BYPASS DESCENDING COLON TO CUTANEOUS, OPEN APPROACH [id number] 09/21/16 CHANGE FEEDING DEVICE IN UP INTEST TRACT, MECHANICAL EQUIPMENT TEST ENGINEER APPROACH [id number] 09/21/16 CHANGE GASTROSTOMY TUBE 87686 09/21/16 COLOSTOMY 90270 09/21/16 AGNIESZKA BONE 20 SQ CM/< 07214 01/28/15 DIAGNOSTIC COLONOSCOPY 07200 03/06/16 EGD BIOPSY SINGLE/MULTIPLE 44762 03/06/16 EXCISION OF DESCENDING COLON, OPEN APPROACH [id number] 09/21/16 EXCISION OF DUODENUM, ENDO, DIAGN [id number] 03/06/16 EXCISION OF SACRUM, OPEN APPROACH [id number] 09/21/16 EXCISION OF STOMACH, ENDO, DIAGN [id number] 03/06/16 IMMOBILIZ/WOUND ATTN NEC 93.59 01/28/15 INSERT INDWELLING CATH 57.94 10/18/05 INSERT TEMP BLADDER CATH 96362 10/18/05 INSERTION OF INFUSION DEV INTO SUP VENA CAVA, PERC APPROACH [id number] 09/21/16 INSPECTION OF LOWER INTESTINAL TRACT, ENDO [id number] 03/06/16 INSPECTION OF UPPER INTESTINAL TRACT, ENDO [id number] 10/27/15 LOC EXC BONE LESION NEC 77.69 01/28/15 PACKED CELL TRANSFUSION 99.04 10/20/14 REMOVAL OF PRESSURE SORE 05731 09/21/16 REPLACE GASTROSTOMY TUBE 97.02 06/09/14 RESPIRATORY VENTILATION, 24-96 CONSECUTIVE HOURS [id number] 09/21/16 TRANSFUSE NONAUT RED BLOOD CELLS IN PERIPH VEIN, PERC [id number] 12/16/16 VENT MGMT INPAT INIT DAY 68010 09/21/16 Assessment/Plan - Problem List Patient Problems: All Active Problems Anemia (Acute 03/06/16) D64.9 Dyspnea (Acute) R06.00 Fever, unspecified (Acute) R50.9 HYPOTENSION WITH TACHYCARDIA AND CONGEST (Acute) Hyperglycemia (Acute) R73.9 Hyperosmolality and/or hypernatremia (Acute) E87.0 Mental retardation (Acute) F79 Other abnormal clinical finding (Acute) R68.89 Pneumonia (Acute) J18.9 Staphylococcal sepsis (Acute) Uncontrolled diabetes mellitus (Acute) E11.65 Urinary tract infection (Acute) - Assessment Assessment: MALACHI B/L hydro 2nd to B/L ureteral calculi MRSA nares Malposition of [place] Cath Possibe stool output/rectum ? fistula ESBL E. Coli Cx UTI Functional Quadriplegia Intellectual Disability Cerebral Palsy Tpe 2 DM Anemia Fe def - Plan Plan: Lab - Result Diagrams 03/21/17 06:44 03/21/17 06:44 Current Medications Acetaminophen (Tylenol) 650 mg GT Q4HR PRN PRN Reason: Pain (Mild) Stop: 05/18/17 19:46 Acetaminophen (Tylenol 650mg/20.3ml Suspension) 650 mg GT Q4H PRN PRN Reason: FEVER >101 Stop: 05/18/17 19:46 Last Admin: 03/20/17 03:03 Dose: 650 mg Albuterol Sulfate (Albuterol 2.5mg/3ml Neb Ud) 2.5 mg HHN Q4HRT [facility] Stop: 05/18/17 22:59 Last Admin: 03/21/17 14:06 Dose: 2.5 mg Atorvastatin Calcium (Lipitor) 40 mg PO HS [facility] PRN Reason: Protocol Stop: 05/18/17 20:59 Last Admin: 03/20/17 23:06 Dose: 40 mg Folic Acid (Folate) 1 mg GT DAILY [facility] Stop: 05/19/17 08:59 Last Admin: 03/21/17 08:36 Dose: 1 mg Guaifenesin (Robitussin) 200 mg GT Q4HR PRN PRN Reason: Cough or Congestion Stop: 05/18/17 19:46 Sodium Chloride (Nacl 0.45%) 1,000 mls @ 75 mls/hr IV .[id number] [facility] Stop: 05/19/17 14:23 Last Admin: 03/21/17 05:32 Dose: 75 mls/hr Meropenem 500 mg/ Sodium (Chloride) 100 mls @ 100 mls/hr IV Q12HR [facility] Stop: 05/20/17 14:24 Insulin Aspart (Novolog Insulin Sliding Scale) 0 units SUBQ Q6HR [facility] PRN Reason: Protocol Stop: 05/19/17 00:00 Last Admin: 03/21/17 11:26 Dose: 6 units Insulin Detemir (Levemir Insulin) 50 units SUBQ HS [facility] Stop: 05/18/17 20:59 Last Admin: 03/20/17 23:06 Dose: 50 units Insulin Human NPH (Novolin N) 15 units SUBQ BIDAC [facility] PRN Reason: Protocol Stop: 05/19/17 07:29 Last Admin: 03/21/17 07:58 Dose: 15 units Ipratropium [place] (Atrovent Neb 0.5mg/2.5ml) 0.5 mg HHN Q4HRT [facility] Stop: 05/18/17 22:59 Last Admin: 03/21/17 14:06 Dose: 0.5 mg Lactobacillus Rhamnosus (Culturelle) 1 each GT DAILY [facility] Stop: 05/19/17 08:59 Last Admin: 03/21/17 08:36 Dose: 1 each Lactulose (Cephulac) 20 gm GT DAILY [facility] Stop: 05/19/17 08:59 Last Admin: 03/21/17 08:35 Dose: 20 gm Loperamide HCl (Imodium) 2 mg GT Q4H PRN PRN Reason: DIARRHEA Stop: 05/18/17 19:46 Lorazepam (Ativan) 0.5 mg PO Q8HR PRN; Protocol PRN Reason: Anxiety Stop: 05/18/17 19:46 Magnesium Hydroxide (Milk Of Magnesia) 30 ml GT DAILY PRN PRN Reason: Constipation Stop: 05/18/17 19:46 Metoclopramide HCl (Reglan) 10 mg GT DAILY [facility] Stop: 05/19/17 08:59 Last Admin: 03/21/17 10:26 Dose: 10 mg Miscellaneous (Arginine/Ascorbate Sod/Lucas Ac [Arginaid Powder]) 1 each GT DAILY [facility] Stop: 05/19/17 08:59 Mupirocin (Bactroban Oint) 1 appl NS BID [facility] Stop: 03/25/17 09:01 Last Admin: 03/21/17 08:34 Dose: 1 appl Rivaroxaban (Xarelto) 10 mg GT DAILY [facility] Stop: 05/19/17 08:59 Last Admin: 03/21/17 08:36 Dose: 10 mg Vitamin A (Vitamin A & D) 5 gm TP DAILY [facility] Stop: 05/19/17 08:59 Last Admin: 03/21/17 08:36 Dose: 5 gm Kidney fnc stable w/ Cr. of 1.4 conservative management of B/L hydro since this is a chronic condition as discussed w/attending continue IVF maintain ABx continue Detemir, NPH Nutritional Asmnt/Malnutr-PDOC - Dietary Evaluation Malnutrition Findings (Please click <Entered> for more info): Nutritional Asmnt/Malnutrition Start: 03/20/17 17: 34 Text: Status: Complete Freq: Document 03/20/17 17:34 [facility] (Rec: 03/20/17 17:48 [facility] [id number]) Nutritional Asmnt/Malnutrition Patient General Information Nutritional Screening Consult Diagnosis Acute UTi, gastrointestinal fistula Pertinent Medical Hx/Surgical Hx Mental retardation, cerebral palsy, DM, PEG, colostomy Subjective Information Nutrition Consult for low cedric score and gtube feeding received and completed. Pt is a 56-year-old female from [facility] admitted with chief complaint of stool coming out of rectum instead of colostomy bag. Pt is a poor historian. Pt has a small body frame with no muscle or fat depletion. RD confirmed feeding schedule with HALINA Jc. Current Diet Order/ Nutrition Support Diabetisource AC at 55 ml/hr x 20 wawxz=[id number] kcals,66gm protein,900ml water Patient / S.O Can't verbalize diet edu Pertinent Medications Folate, Novolog, Levemir, Novolin N, Culturelle, Cephulac, Reglan, NaCl 0.45%, Vitamin A & D Pertinent Labs (03/19) Glucose 309H, A1C 6.8H (8/18) BUN 63H, Creatinine 1. 3H, Glucose 331H, POC Glucose 294H-317H Nutritional Hx/Data Height 1.5 m Height (Calculated Centimeters) 149.9 Current Weight (lbs) 38.782 kg Weight (Calculated Kilograms) 38.8 Weight (Calculated Grams) 54290.1 [place] Body Weight N/A Weight Status Approriate GI Symptoms GI Symptoms None Difficult in: Chewing Swallowing Food Allergies No Usual diet at home Glucerna 1.2 at 55 ml/hr x 20 hours, run [id number] Skin Integrity/Comment: Cedric 10. Decubitus ulcers to sacral-coccygeal area, buttocks Estimated Nutritional Goals BEE in Kcals: Using Current wt Calories/Kcals/Kg Based on current wt 38.9 kg with consideration of decubitus ulcers Kcals Calculated 3156-9064 kcals/day (30-35 kcals/kg) Protein: Using Current wt Protein g/kg: Based on current wt 38.9 kg with consideration of decubitus ulcers Protein Calculated 47-58 gm/day (1.2-1.5 gm/kg) monitor renal labs Fluid: ml 9227-0224 ml/day (1 ml/kcal) Nutritional Problem 1. Problem Problem Increased protein needs related to Etiology altered skin integrity as evidenced by Signs/Symptoms: decubitus ulcers to sacral- coccygeal area and buttocks. Malnutrition Alert Protein-Calorie Malnutrition N/A Is there a minimum of two criteria No selected? Query Text:Check all the applicable criteria. A minimum of two criteria are recommended for diagnosis of either severe or non-severe malnutrition. Malnutrition Related to Morbid Obesity Malnutrition related to morbid obesity No Intervention/Recommendation Comments 1. Continue with current tube feeding regimen as it is adequate to meet estimated nutritional needs ideal for wound healing. 2. Reevaluate glycemic regimen due to hyperglycermia. Improved blood glucose levels will help with wound healing. Expected Outcomes/Goals Expected Outcomes/Goals Provide pt with 100% of estimated nutritional needs, improved skin integrity.
[2017-03-23] MEDS: INSULIN ASPART SLIDING SCALE 100 UNITS/ML UNIT SUBQ SCH ×4 (00:15→18:07)
[2017-03-23] MEDS: Sodium Chloride 0.45% 1,000 ML IV SCH ×2 (06:18→21:50)
[2017-03-23 07:18] LABS: % LYMPHOCYTES 16.8 % (20.0-50.0); % MONOCYTES 8.8 % (2.0-10.0); % NEUTROPHILS 69.4 % (40.0-80.0); HEMATOCRIT 27.7 % (35.0-45.0); MEAN CELL VOLUME 88.5 fl (81-100); MEAN CORPUSCULAR HEMOGLOBIN 28.7 pg (27.0-31.0); MEAN CORPUSCULAR HGB CONC 32.5 pg (28.0-36.0); MEAN PLATELET VOLUME 8.6 fl; NEUTROPHILE ABSOLUTE 3.6 Th/cmm (1.8-8.0); PLATELET COUNT 180 Th/cmm (150-400); RED BLOOD COUNT 3.13 Mil/cmm (3.80-5.10); RED CELL DISTRIBUTION WIDTH 19.5 % (11.5-20.0)
[2017-03-23 07:20] LABS: WHITE BLOOD COUNT 5.3 Th/cmm (4.8-10.8)
[2017-03-23 07:30] LABS: ANION GAP 8.6 (7.0-16.0); BUN - UREA NITROGEN 42 mg/dL (7-25); BUN/CREATININE RATIO 38.2; CALCIUM SERUM 9.4 mg/dL (8.6-10.3); CARBON DIOXIDE 22.9 mEq/L (21.0-31.0); CHLORIDE 114 mEq/L (98-107); CREATININE - SERUM 1.1 mg/dL (0.6-1.2); GLUCOSE 159 mg/dL (70-105); MAGNESIUM 2.1 mg/dL (1.9-2.7); POTASSIUM SERUM 3.5 mEq/L (3.5-5.1); SODIUM SERUM 142 mEq/L (136-145)
[2017-03-23] MEDS: Albuterol Nebulizer 2.5mg/3mL HHN SCH ×5 (07:36→22:49)
[2017-03-23] MEDS: Ipratropium Neb 0.5 mg/2.5 mL UD HHN SCH ×5 (07:37→22:49)
[2017-03-23] MEDS: Vitamin A/Vitamin D 5 gm Packet TP SCH (08:46)
[2017-03-23] MEDS: Lactobacillus Rhamnosus 10 Billion CFU Capsule GT SCH (08:46)
[2017-03-23] MEDS: INSULIN HUMAN ISOPHANE (NPH) 100 UNITS/ML SUBQ SCH ×2 (08:46→17:04)
[2017-03-23] MEDS: Multivitamin w/ Minerals Tab GT SCH (08:46)
[2017-03-23] MEDS: Lactulose 10 Gm/15 mL 30mL UDC GT SCH (08:46)
[2017-03-23] MEDS: Meropenem 500 MG in Sodium Chloride 0.9% 100 ML IV SCH ×2 (08:47→21:50)
--- NOTE | 2017-03-23 11:58 | Internal Medicine Prog Note ---
Internal Medicine Subjective - Subjective Patient seen and examined:: with staff, chart reviewed Patient is:: awake, non-verbal, non-interactive, in bed, congested Patient Complaints of:: congestion Per staff patient has:: no adverse event, agitated, confused, tolerating meds Internal Medicine Objective - Results Result Diagrams: 03/23/17 06:55 03/23/17 06:55 Recent Labs: Laboratory Last Values WBC 5.3 Th/cmm (4.8-10.8) D 03/23/17 06:55 RBC 3.13 Mil/cmm (3.80-5.10) L 03/23/17 06:55 Hgb 9.0 gm/dL (11.7-15.5) L 03/23/17 06:55 Hct 27.7 % (35.0-45.0) L 03/23/17 06:55 MCV 88.5 fl (81-100) 03/23/17 06:55 MCH 28.7 pg (27.0-31.0) 03/23/17 06:55 MCHC Differential 32.5 pg (28.0-36.0) 03/23/17 06:55 RDW 19.5 % (11.5-20.0) 03/23/17 06:55 Plt Count 180 Th/cmm (150-400) 03/23/17 06:55 MPV 8.6 fl 03/23/17 06:55 Neutrophils % 69.4 % (40.0-80.0) 03/23/17 06:55 Band Neutrophils % 14 % (0-10) H 03/21/17 06:44 Lymphocytes % 16.8 % (20.0-50.0) L 03/23/17 06:55 Monocytes % 8.8 % (2.0-10.0) 03/23/17 06:55 Eosinophils % 5.0 % (0.0-5.0) 03/23/17 06:55 Basophils % 0.0 % (0.0-2.0) 03/23/17 06:55 Neutrophils (Manual) 71 % (40-80) 03/21/17 06:44 Lymphocytes 6 % (20-50) L 03/21/17 06:44 Monocytes 7 % (2-10) 03/21/17 06:44 Eosinophils 2 % (0-5) 03/21/17 06:44 Platelet Estimate ADEQUATE (NORMAL) 03/21/17 06:44 Platelet Morphology NORMAL (NORMAL) 03/21/17 06:44 Anisocytosis 1+ 03/21/17 06:44 RBC Morph Micro Appear ABNORMAL (NORMAL) 03/21/17 06:44 Eos Smear Source URINE 03/21/17 19:01 Eos Smear Total Cells FEW EOSINOPHILS SEEN (NONE SEEN) 03/21/17 19:01 Sodium 142 mEq/L (136-145) 03/23/17 06:55 Potassium 3.5 mEq/L (3.5-5.1) 03/23/17 06:55 Chloride 114 mEq/L (98-107) H 03/23/17 06:55 Carbon Dioxide 22.9 mEq/L (21.0-31.0) 03/23/17 06:55 Anion Gap 8.6 (7.0-16.0) 03/23/17 06:55 BUN 42 mg/dL (7-25) H 03/23/17 06:55 Creatinine 1.1 mg/dL (0.6-1.2) 03/23/17 06:55 Est GFR ( Amer) > 60.0 ml/min (>90) 03/23/17 06:55 Est GFR (Non-Af Amer) 54.8 ml/min 03/23/17 06:55 BUN/Creatinine Ratio 38.2 03/23/17 06:55 Glucose 159 mg/dL (70-105) H 03/23/17 06:55 POC Glucose 170 MG/DL (70 - 105) H 03/23/17 11:31 Hemoglobin A1c % 6.8 % (4.0-6.0) H 03/19/17 12:20 Uric Acid 7.5 mg/dL (2.3-6.6) H 03/21/17 06:44 Calcium 9.4 mg/dL (8.6-10.3) 03/23/17 06:55 Phosphorus 3.3 mg/dL (2.5-5.0) 03/21/17 06:44 Magnesium 2.1 mg/dL (1.9-2.7) 03/23/17 06:55 Total Bilirubin 0.4 mg/dL (0.3-1.0) 03/21/17 06:44 AST 13 U/L (13-39) 03/21/17 06:44 ALT 12 U/L (7-52) 03/21/17 06:44 Alkaline Phosphatase 100 U/L (34-104) 03/21/17 06:44 Total Protein 7.5 gm/dL (6.0-8.3) 03/21/17 06:44 Albumin 2.9 gm/dL (3.7-5.3) L 03/21/17 06:44 Globulin 4.6 gm/dL 03/21/17 06:44 Albumin/Globulin Ratio 0.6 (1.0-1.8) L 03/21/17 06:44 Lipase 14 U/L (11-82) 03/19/17 12:20 TSH 1.19 uIU/ml (0.34-5.60) 03/21/17 06:44 Urine Source [place] 03/19/17 17:00 Urine Color YELLOW 03/19/17 17:00 Urine Clarity CLOUDY (CLEAR) H 03/19/17 17:00 Urine pH 7.5 (4.6 - 8.0) 03/19/17 17:00 Ur Specific [place] 1.005 (1.005-1.030) 03/19/17 17:00 Urine Protein 100 mg/dL (NEGATIVE) H 03/19/17 17:00 Urine Glucose (UA) NEGATIVE mg/dL (NEGATIVE) 03/19/17 17:00 Urine Ketones 15 mg/dL (NEGATIVE) H 03/19/17 17:00 Urine Blood SMALL (NEGATIVE) H 03/19/17 17:00 Urine Nitrate NEGATIVE (NEGATIVE) 03/19/17 17:00 Urine Bilirubin NEGATIVE (NEGATIVE) 03/19/17 17:00 Urine Urobilinogen 0.2 E.U./dL (0.2 - 1.0) 03/19/17 17:00 Ur Leukocyte Esterase LARGE (NEGATIVE) H 03/19/17 17:00 Urine RBC 2-5 /hpf (0-5) 03/19/17 17:00 Urine WBC >100 /hpf (0-5) H 03/19/17 17:00 Ur Epithelial Cells FEW /lpf (FEW) 03/19/17 17:00 Urine Bacteria MANY /hpf (NONE SEEN) 03/19/17 17:00 Ur Random Sodium 67 mmol/L 03/21/17 19:01 Urine Creatinine 16.0 mg/dl (28.0-217.0) L 03/21/17 19:01 - Physical Exam Vitals and I&O: Vital Signs Temp 97.8 F 03/23/17 08:00 Pulse 83 03/23/17 11:34 Resp 18 03/23/17 11:34 BP 119/57 03/23/17 08:00 Pulse Ox 97 03/23/17 11:34 Intake & Output 03/22/17 03/23/17 03/23/17 18:59 06:59 18:59 Intake Total 1086.25 1540 Output Total 700 1050 Balance 386.25 490 Weight (lbs) 38.465 kg 41.821 kg Intake: Intake, IV Amount 1086.25 1100 Meropenem 500 mg In 100 100 Sodium Chloride 0.9% 100 ml @ 100 mls/hr IV Q12HR [facility] Rx#:[id number] Sodium Chloride 0.45% 1, 986.25 1000 000 ml @ 75 mls/hr IV . [id number] [facility] Rx#:[id number] Tube Feeding 440 Output: Urine 700 900 Stool 150 Other: Stool Characteristics Liquid Liquid Liquid Active Medications: Current Medications Acetaminophen (Tylenol) 650 mg GT Q4HR PRN PRN Reason: Pain (Mild) Stop: 05/18/17 19:46 Acetaminophen (Tylenol 650mg/20.3ml Suspension) 650 mg GT Q4H PRN PRN Reason: FEVER >101 Stop: 05/18/17 19:46 Last Admin: 03/20/17 03:03 Dose: 650 mg Albuterol Sulfate (Albuterol 2.5mg/3ml Neb Ud) 2.5 mg HHN Q4HRT [facility] Stop: 05/18/17 22:59 Last Admin: 03/23/17 11:31 Dose: 2.5 mg Atorvastatin Calcium (Lipitor) 40 mg PO HS [facility] PRN Reason: Protocol Stop: 05/18/17 20:59 Last Admin: 03/22/17 20:57 Dose: 40 mg Folic Acid (Folate) 1 mg GT DAILY [facility] Stop: 05/19/17 08:59 Last Admin: 03/23/17 08:46 Dose: 1 mg Guaifenesin (Robitussin) 200 mg GT Q4HR PRN PRN Reason: Cough or Congestion Stop: 05/18/17 19:46 Sodium Chloride (Nacl 0.45%) 1,000 mls @ 75 mls/hr IV .[id number] [facility] Stop: 05/19/17 14:23 Last Admin: 03/23/17 06:18 Dose: 75 mls/hr Meropenem 500 mg/ Sodium (Chloride) 100 mls @ 100 mls/hr IV Q12HR [facility] Stop: 05/20/17 14:24 Last Admin: 03/23/17 08:47 Dose: 100 mls/hr Insulin Aspart (Novolog Insulin Sliding Scale) 0 units SUBQ Q6HR [facility] PRN Reason: Protocol Stop: 05/19/17 00:00 Last Admin: 03/23/17 11:50 Dose: 2 units Insulin Detemir (Levemir Insulin) 50 units SUBQ HS [facility] Stop: 05/18/17 20:59 Last Admin: 03/22/17 20:58 Dose: 50 units Insulin Human NPH (Novolin N) 18 units SUBQ BIDAC [facility] PRN Reason: Protocol Stop: 05/19/17 07:29 Last Admin: 03/23/17 08:46 Dose: 18 units Ipratropium [place] (Atrovent Neb 0.5mg/2.5ml) 0.5 mg HHN Q4HRT [facility] Stop: 05/18/17 22:59 Last Admin: 03/23/17 11:31 Dose: 0.5 mg Lactobacillus Rhamnosus (Culturelle) 1 each GT DAILY [facility] Stop: 05/19/17 08:59 Last Admin: 03/23/17 08:46 Dose: 1 each Lactulose (Cephulac) 20 gm GT DAILY [facility] Stop: 05/19/17 08:59 Last Admin: 03/23/17 08:46 Dose: 20 gm Loperamide HCl (Imodium) 2 mg GT Q4H PRN PRN Reason: DIARRHEA Stop: 05/18/17 19:46 Lorazepam (Ativan) 0.5 mg PO Q8HR PRN; Protocol PRN Reason: Anxiety Stop: 05/18/17 19:46 Magnesium Hydroxide (Milk Of Magnesia) 30 ml GT DAILY PRN PRN Reason: Constipation Stop: 05/18/17 19:46 Metoclopramide HCl (Reglan) 10 mg GT DAILY [facility] Stop: 05/19/17 08:59 Last Admin: 03/23/17 08:46 Dose: 10 mg Miscellaneous (Arginine/Ascorbate Sod/Lucas Ac [Arginaid Powder]) 1 each GT DAILY [facility] Stop: 05/19/17 08:59 Mupirocin (Bactroban Oint) 1 appl NS BID [facility] Stop: 03/25/17 09:01 Last Admin: 03/23/17 08:46 Dose: 1 appl Rivaroxaban (Xarelto) 10 mg GT DAILY [facility] Stop: 05/19/17 08:59 Last Admin: 03/23/17 08:48 Dose: 10 mg Vitamin A (Vitamin A & D) 5 gm TP DAILY [facility] Stop: 05/19/17 08:59 Last Admin: 03/23/17 08:46 Dose: 5 gm General: lethargic, demented, bilateral temporal wasting, cachectic, appears older HEENT: dry oral mucosa, thinning hair, poor dentition Neck: Supple, No thyromegaly Lungs: congested, rales, ronchi Cardiovascular: RRR, Normal S1, Normal S2 Abdomen: soft, non-tender, +GT, other (colostomy) Extremities: excoriation, contracture, ulcers stage 2, ulcers stage 4 Neurological: lethargic - Procedures Procedures: Procedures Procedure Code Date BLOOD TRANSFUSION SERVICE 70710 12/16/16 BYPASS DESCENDING COLON TO CUTANEOUS, OPEN APPROACH [id number] 09/21/16 CHANGE FEEDING DEVICE IN UP INTEST TRACT, INGREDIENT SCALER HELPER APPROACH [id number] 09/21/16 CHANGE GASTROSTOMY TUBE 40658 09/21/16 COLOSTOMY 28687 09/21/16 AGNIESZKA BONE 20 SQ CM/< 30150 01/28/15 DIAGNOSTIC COLONOSCOPY 00706 03/06/16 EGD BIOPSY SINGLE/MULTIPLE 12774 03/06/16 EXCISION OF DESCENDING COLON, OPEN APPROACH [id number] 09/21/16 EXCISION OF DUODENUM, ENDO, DIAGN [id number] 03/06/16 EXCISION OF SACRUM, OPEN APPROACH [id number] 09/21/16 EXCISION OF STOMACH, ENDO, DIAGN [id number] 03/06/16 IMMOBILIZ/WOUND ATTN NEC 93.59 01/28/15 INSERT INDWELLING CATH 57.94 10/18/05 INSERT TEMP BLADDER CATH 96055 10/18/05 INSERTION OF INFUSION DEV INTO SUP VENA CAVA, PERC APPROACH [id number] 09/21/16 INSPECTION OF LOWER INTESTINAL TRACT, ENDO [id number] 03/06/16 INSPECTION OF UPPER INTESTINAL TRACT, ENDO [id number] 10/27/15 LOC EXC BONE LESION NEC 77.69 01/28/15 PACKED CELL TRANSFUSION 99.04 10/20/14 REMOVAL OF PRESSURE SORE 01701 09/21/16 REPLACE GASTROSTOMY TUBE 97.02 06/09/14 RESPIRATORY VENTILATION, 24-96 CONSECUTIVE HOURS [id number] 09/21/16 TRANSFUSE NONAUT RED BLOOD CELLS IN PERIPH VEIN, PERC [id number] 12/16/16 VENT MGMT INPAT INIT DAY 95622 09/21/16 Internal Medicine Assmt/Plan - Assessment Assessment: abd pain possible GI FISTULA HTN DM2 MRSA NARES ACUTE UTI dehydration, renal failure' timmy hydroneprosis htn - Plan Plan: cont on iv abx o2 bronchodilator will adjust abx gi and renal follow up dw rn will adjust insulin coverage may consider ltac Nutritional Asmnt/Malnutr-PDOC - Dietary Evaluation Malnutrition Findings (Please click <Entered> for more info): Nutritional Asmnt/Malnutrition Start: 03/20/17 17: 34 Text: Status: Complete Freq: Document 03/20/17 17:34 [facility] (Rec: 03/20/17 17:48 [facility] [id number]) Nutritional Asmnt/Malnutrition Patient General Information Nutritional Screening Consult Diagnosis Acute UTi, gastrointestinal fistula Pertinent Medical Hx/Surgical Hx Mental retardation, cerebral palsy, DM, PEG, colostomy Subjective Information Nutrition Consult for low cedric score and gtube feeding received and completed. Pt is a 56-year-old female from [facility] admitted with chief complaint of stool coming out of rectum instead of colostomy bag. Pt is a poor historian. Pt has a small body frame with no muscle or fat depletion. RD confirmed feeding schedule with HALINA Jc. Current Diet Order/ Nutrition Support Diabetisource AC at 55 ml/hr x 20 adoah=[id number] kcals,66gm protein,900ml water Patient / S.O Can't verbalize diet edu Pertinent Medications Folate, Novolog, Levemir, Novolin N, Culturelle, Cephulac, Reglan, NaCl 0.45%, Vitamin A & D Pertinent Labs (03/19) Glucose 309H, A1C 6.8H (03/20) BUN 63H, Creatinine 1. 3H, Glucose 331H, POC Glucose 294H-317H Nutritional Hx/Data Height 1.5 m Height (Calculated Centimeters) 149.9 Current Weight (lbs) 38.782 kg Weight (Calculated Kilograms) 38.8 Weight (Calculated Grams) 05371.1 [place] Body Weight N/A Weight Status Approriate GI Symptoms GI Symptoms None Difficult in: Chewing Swallowing Food Allergies No Usual diet at home Glucerna 1.2 at 55 ml/hr x 20 hours, run [id number] Skin Integrity/Comment: Cedric 10. Decubitus ulcers to sacral-coccygeal area, buttocks Estimated Nutritional Goals BEE in Kcals: Using Current wt Calories/Kcals/Kg Based on current wt 38.9 kg with consideration of decubitus ulcers Kcals Calculated 5506-3820 kcals/day (30-35 kcals/kg) Protein: Using Current wt Protein g/kg: Based on current wt 38.9 kg with consideration of decubitus ulcers Protein Calculated 47-58 gm/day (1.2-1.5 gm/kg) monitor renal labs Fluid: ml 3730-1824 ml/day (1 ml/kcal) Nutritional Problem 1. Problem Problem Increased protein needs related to Etiology altered skin integrity as evidenced by Signs/Symptoms: decubitus ulcers to sacral- coccygeal area and buttocks. Malnutrition Alert Protein-Calorie Malnutrition N/A Is there a minimum of two criteria No selected? Query Text:Check all the applicable criteria. A minimum of two criteria are recommended for diagnosis of either severe or non-severe malnutrition. Malnutrition Related to Morbid Obesity Malnutrition related to morbid obesity No Intervention/Recommendation Comments 1. Continue with current tube feeding regimen as it is adequate to meet estimated nutritional needs ideal for wound healing. 2. Reevaluate glycemic regimen due to hyperglycermia. Improved blood glucose levels will help with wound healing. Expected Outcomes/Goals Expected Outcomes/Goals Provide pt with 100% of estimated nutritional needs, improved skin integrity.
--- NOTE | 2017-03-23 16:02 | GI Progress Note ---
Subjective - Review of Systems Service Date: 03/23/17 Events since last encounter: CT abd with po contrast performed on 03/21, no fistula identified. Normal contrast passage through the small bowel. Objective - Results Result Diagrams: 03/23/17 06:55 03/23/17 06:55 Recent Labs: Laboratory Last Values WBC 5.3 Th/cmm (4.8-10.8) D 03/23/17 06:55 RBC 3.13 Mil/cmm (3.80-5.10) L 03/23/17 06:55 Hgb 9.0 gm/dL (11.7-15.5) L 03/23/17 06:55 Hct 27.7 % (35.0-45.0) L 03/23/17 06:55 MCV 88.5 fl (81-100) 03/23/17 06:55 MCH 28.7 pg (27.0-31.0) 03/23/17 06:55 MCHC Differential 32.5 pg (28.0-36.0) 03/23/17 06:55 RDW 19.5 % (11.5-20.0) 03/23/17 06:55 Plt Count 180 Th/cmm (150-400) 03/23/17 06:55 MPV 8.6 fl 03/23/17 06:55 Neutrophils % 69.4 % (40.0-80.0) 03/23/17 06:55 Band Neutrophils % 14 % (0-10) H 03/21/17 06:44 Lymphocytes % 16.8 % (20.0-50.0) L 03/23/17 06:55 Monocytes % 8.8 % (2.0-10.0) 03/23/17 06:55 Eosinophils % 5.0 % (0.0-5.0) 03/23/17 06:55 Basophils % 0.0 % (0.0-2.0) 03/23/17 06:55 Neutrophils (Manual) 71 % (40-80) 03/21/17 06:44 Lymphocytes 6 % (20-50) L 03/21/17 06:44 Monocytes 7 % (2-10) 03/21/17 06:44 Eosinophils 2 % (0-5) 03/21/17 06:44 Platelet Estimate ADEQUATE (NORMAL) 03/21/17 06:44 Platelet Morphology NORMAL (NORMAL) 03/21/17 06:44 Anisocytosis 1+ 03/21/17 06:44 RBC Morph Micro Appear ABNORMAL (NORMAL) 03/21/17 06:44 Eos Smear Source URINE 03/21/17 19:01 Eos Smear Total Cells FEW EOSINOPHILS SEEN (NONE SEEN) 03/21/17 19:01 Sodium 142 mEq/L (136-145) 03/23/17 06:55 Potassium 3.5 mEq/L (3.5-5.1) 03/23/17 06:55 Chloride 114 mEq/L (98-107) H 03/23/17 06:55 Carbon Dioxide 22.9 mEq/L (21.0-31.0) 03/23/17 06:55 Anion Gap 8.6 (7.0-16.0) 03/23/17 06:55 BUN 42 mg/dL (7-25) H 03/23/17 06:55 Creatinine 1.1 mg/dL (0.6-1.2) 03/23/17 06:55 Est GFR ( Amer) > 60.0 ml/min (>90) 03/23/17 06:55 Est GFR (Non-Af Amer) 54.8 ml/min 03/23/17 06:55 BUN/Creatinine Ratio 38.2 03/23/17 06:55 Glucose 159 mg/dL (70-105) H 03/23/17 06:55 POC Glucose 170 MG/DL (70 - 105) H 03/23/17 11:31 Hemoglobin A1c % 6.8 % (4.0-6.0) H 03/19/17 12:20 Uric Acid 7.5 mg/dL (2.3-6.6) H 03/21/17 06:44 Calcium 9.4 mg/dL (8.6-10.3) 03/23/17 06:55 Phosphorus 3.3 mg/dL (2.5-5.0) 03/21/17 06:44 Magnesium 2.1 mg/dL (1.9-2.7) 03/23/17 06:55 Total Bilirubin 0.4 mg/dL (0.3-1.0) 03/21/17 06:44 AST 13 U/L (13-39) 03/21/17 06:44 ALT 12 U/L (7-52) 03/21/17 06:44 Alkaline Phosphatase 100 U/L (34-104) 03/21/17 06:44 Total Protein 7.5 gm/dL (6.0-8.3) 03/21/17 06:44 Albumin 2.9 gm/dL (3.7-5.3) L 03/21/17 06:44 Globulin 4.6 gm/dL 03/21/17 06:44 Albumin/Globulin Ratio 0.6 (1.0-1.8) L 03/21/17 06:44 Lipase 14 U/L (11-82) 03/19/17 12:20 TSH 1.19 uIU/ml (0.34-5.60) 03/21/17 06:44 Urine Source [place] 03/19/17 17:00 Urine Color YELLOW 03/19/17 17:00 Urine Clarity CLOUDY (CLEAR) H 03/19/17 17:00 Urine pH 7.5 (4.6 - 8.0) 03/19/17 17:00 Ur Specific [place] 1.005 (1.005-1.030) 03/19/17 17:00 Urine Protein 100 mg/dL (NEGATIVE) H 03/19/17 17:00 Urine Glucose (UA) NEGATIVE mg/dL (NEGATIVE) 03/19/17 17:00 Urine Ketones 15 mg/dL (NEGATIVE) H 03/19/17 17:00 Urine Blood SMALL (NEGATIVE) H 03/19/17 17:00 Urine Nitrate NEGATIVE (NEGATIVE) 03/19/17 17:00 Urine Bilirubin NEGATIVE (NEGATIVE) 03/19/17 17:00 Urine Urobilinogen 0.2 E.U./dL (0.2 - 1.0) 03/19/17 17:00 Ur Leukocyte Esterase LARGE (NEGATIVE) H 03/19/17 17:00 Urine RBC 2-5 /hpf (0-5) 03/19/17 17:00 Urine WBC >100 /hpf (0-5) H 03/19/17 17:00 Ur Epithelial Cells FEW /lpf (FEW) 03/19/17 17:00 Urine Bacteria MANY /hpf (NONE SEEN) 03/19/17 17:00 Ur Random Sodium 67 mmol/L 03/21/17 19:01 Urine Creatinine 16.0 mg/dl (28.0-217.0) L 03/21/17 19:01 - Physical Exam Vitals and I&O: Vital Signs Temp 96.9 F 03/23/17 12:00 Pulse 85 03/23/17 15:40 Resp 18 03/23/17 15:40 BP 118/82 03/23/17 12:00 Pulse Ox 97 03/23/17 15:40 Intake & Output 03/22/17 03/23/17 03/23/17 18:59 06:59 18:59 Intake Total 1086.25 1540 Output Total 700 1050 Balance 386.25 490 Weight (lbs) 38.465 kg 41.821 kg Intake: Intake, IV Amount 1086.25 1100 Meropenem 500 mg In 100 100 Sodium Chloride 0.9% 100 ml @ 100 mls/hr IV Q12HR [facility] Rx#:[id number] Sodium Chloride 0.45% 1, 986.25 1000 000 ml @ 75 mls/hr IV . [id number] [facility] Rx#:[id number] Tube Feeding 440 Output: Urine 700 900 Stool 150 Other: Stool Characteristics Liquid Liquid Liquid Active Medications: Current Medications Acetaminophen (Tylenol) 650 mg GT Q4HR PRN PRN Reason: Pain (Mild) Stop: 05/18/17 19:46 Acetaminophen (Tylenol 650mg/20.3ml Suspension) 650 mg GT Q4H PRN PRN Reason: FEVER >101 Stop: 05/18/17 19:46 Last Admin: 03/20/17 03:03 Dose: 650 mg Albuterol Sulfate (Albuterol 2.5mg/3ml Neb Ud) 2.5 mg HHN Q4HRT [facility] Stop: 05/18/17 22:59 Last Admin: 03/23/17 15:29 Dose: 2.5 mg Atorvastatin Calcium (Lipitor) 40 mg PO HS [facility] PRN Reason: Protocol Stop: 05/18/17 20:59 Last Admin: 03/22/17 20:57 Dose: 40 mg Folic Acid (Folate) 1 mg GT DAILY [facility] Stop: 05/19/17 08:59 Last Admin: 03/23/17 08:46 Dose: 1 mg Guaifenesin (Robitussin) 200 mg GT Q4HR PRN PRN Reason: Cough or Congestion Stop: 05/18/17 19:46 Sodium Chloride (Nacl 0.45%) 1,000 mls @ 75 mls/hr IV .[id number] [facility] Stop: 05/19/17 14:23 Last Admin: 03/23/17 06:18 Dose: 75 mls/hr Meropenem 500 mg/ Sodium (Chloride) 100 mls @ 100 mls/hr IV Q12HR [facility] Stop: 05/20/17 14:24 Last Admin: 03/23/17 08:47 Dose: 100 mls/hr Insulin Aspart (Novolog Insulin Sliding Scale) 0 units SUBQ Q6HR [facility] PRN Reason: Protocol Stop: 05/19/17 00:00 Last Admin: 03/23/17 11:50 Dose: 2 units Insulin Detemir (Levemir Insulin) 50 units SUBQ HS [facility] Stop: 05/18/17 20:59 Last Admin: 03/22/17 20:58 Dose: 50 units Insulin Human NPH (Novolin N) 18 units SUBQ BIDAC [facility] PRN Reason: Protocol Stop: 05/19/17 07:29 Last Admin: 03/23/17 08:46 Dose: 18 units Ipratropium [place] (Atrovent Neb 0.5mg/2.5ml) 0.5 mg HHN Q4HRT [facility] Stop: 05/18/17 22:59 Last Admin: 03/23/17 15:29 Dose: 0.5 mg Lactobacillus Rhamnosus (Culturelle) 1 each GT DAILY [facility] Stop: 05/19/17 08:59 Last Admin: 03/23/17 08:46 Dose: 1 each Lactulose (Cephulac) 20 gm GT DAILY [facility] Stop: 05/19/17 08:59 Last Admin: 03/23/17 08:46 Dose: 20 gm Loperamide HCl (Imodium) 2 mg GT Q4H PRN PRN Reason: DIARRHEA Stop: 05/18/17 19:46 Lorazepam (Ativan) 0.5 mg PO Q8HR PRN; Protocol PRN Reason: Anxiety Stop: 05/18/17 19:46 Magnesium Hydroxide (Milk Of Magnesia) 30 ml GT DAILY PRN PRN Reason: Constipation Stop: 05/18/17 19:46 Metoclopramide HCl (Reglan) 10 mg GT DAILY [facility] Stop: 05/19/17 08:59 Last Admin: 03/23/17 08:46 Dose: 10 mg Mupirocin (Bactroban Oint) 1 appl NS BID [facility] Stop: 03/25/17 09:01 Last Admin: 03/23/17 08:46 Dose: 1 appl Rivaroxaban (Xarelto) 10 mg GT DAILY [facility] Stop: 05/19/17 08:59 Last Admin: 03/23/17 08:48 Dose: 10 mg Vitamin A (Vitamin A & D) 5 gm TP DAILY [facility] Stop: 05/19/17 08:59 Last Admin: 03/23/17 08:46 Dose: 5 gm General: Alert, Cooperative, No acute distress HEENT: Atraumatic, PERRLA, EOMI, Mucous membr. moist/pink Neck: Supple, +2 carotid pulse wo bruit Cardiovascular: Regular rate, Normal S1, Normal S2 Lungs: Clear to auscultation Abdomen: Bowel sounds, Soft, Other (left colostomy bag) Extremities: no Edema Neurological: Sensation intact Skin: no Rash Psych/Mental Status: Mood NL - Procedures Procedures: Procedures Procedure Code Date BLOOD TRANSFUSION SERVICE 31598 12/16/16 BYPASS DESCENDING COLON TO CUTANEOUS, OPEN APPROACH [id number] 09/21/16 CHANGE FEEDING DEVICE IN UP INTEST TRACT, CARRIER BLOWER APPROACH [id number] 09/21/16 CHANGE GASTROSTOMY TUBE 70285 09/21/16 COLOSTOMY 30880 09/21/16 AGNIESZKA BONE 20 SQ CM/< 95535 01/28/15 DIAGNOSTIC COLONOSCOPY 85946 03/06/16 EGD BIOPSY SINGLE/MULTIPLE 03027 03/06/16 EXCISION OF DESCENDING COLON, OPEN APPROACH [id number] 09/21/16 EXCISION OF DUODENUM, ENDO, DIAGN [id number] 03/06/16 EXCISION OF SACRUM, OPEN APPROACH [id number] 09/21/16 EXCISION OF STOMACH, ENDO, DIAGN [id number] 03/06/16 IMMOBILIZ/WOUND ATTN NEC 93.59 01/28/15 INSERT INDWELLING CATH 57.94 10/18/05 INSERT TEMP BLADDER CATH 02817 10/18/05 INSERTION OF INFUSION DEV INTO SUP VENA CAVA, PERC APPROACH [id number] 09/21/16 INSPECTION OF LOWER INTESTINAL TRACT, ENDO [id number] 03/06/16 INSPECTION OF UPPER INTESTINAL TRACT, ENDO [id number] 10/27/15 LOC EXC BONE LESION NEC 77.69 01/28/15 PACKED CELL TRANSFUSION 99.04 10/20/14 REMOVAL OF PRESSURE SORE [id number] 09/21/16 REPLACE GASTROSTOMY TUBE 97.02 06/09/14 RESPIRATORY VENTILATION, 24-96 CONSECUTIVE HOURS [id number] 09/21/16 TRANSFUSE NONAUT RED BLOOD CELLS IN PERIPH VEIN, PERC [id number] 12/16/16 VENT MGMT INPAT INIT DAY 61991 09/21/16 Assessment/Plan - Problem List Patient Problems: All Active Problems Anemia (Acute 03/06/16) D64.9 Dyspnea (Acute) R06.00 Fever, unspecified (Acute) R50.9 HYPOTENSION WITH TACHYCARDIA AND CONGEST (Acute) Hyperglycemia (Acute) R73.9 Hyperosmolality and/or hypernatremia (Acute) E87.0 Mental retardation (Acute) F79 Other abnormal clinical finding (Acute) R68.89 Pneumonia (Acute) J18.9 Staphylococcal sepsis (Acute) Uncontrolled diabetes mellitus (Acute) E11.65 Urinary tract infection (Acute) - Plan Plan: # Possible GI fistula: - CT scan with oral contrast shows no fistula - Colostomy bag functioning with brown stool in the bag - Rectal pouch may have contained retained stool vs mucous, which may have been what was observed prior - Ok to continue tube feeds - Abx per primary
[2017-03-23] MEDS: Insulin Detemir 100 units/mL 10mL Vial SUBQ SCH (21:57)
[2017-03-24] MEDS: INSULIN ASPART SLIDING SCALE 100 UNITS/ML UNIT SUBQ SCH ×4 (01:14→17:26)
[2017-03-24] MEDS: Albuterol Nebulizer 2.5mg/3mL HHN SCH ×6 (02:35→22:39)
[2017-03-24] MEDS: Ipratropium Neb 0.5 mg/2.5 mL UD HHN SCH ×6 (02:35→22:39)
[2017-03-24] MEDS: Lactulose 10 Gm/15 mL 30mL UDC GT SCH (09:34)
[2017-03-24] MEDS: Lactobacillus Rhamnosus 10 Billion CFU Capsule GT SCH (09:34)
[2017-03-24] MEDS: Multivitamin w/ Minerals Tab GT SCH (09:34)
[2017-03-24] MEDS: Vitamin A/Vitamin D 5 gm Packet TP SCH (09:35)
[2017-03-24] MEDS: INSULIN HUMAN ISOPHANE (NPH) 100 UNITS/ML SUBQ SCH ×2 (09:36→17:27)
[2017-03-24] MEDS: Meropenem 500 MG in Sodium Chloride 0.9% 100 ML IV SCH ×2 (09:48→22:14)
[2017-03-24 11:15] LABS: MICROALBUMIN RANDOM RUINE 747.4 ug/mL (Not Estab.)
--- NOTE | 2017-03-24 11:43 | Internal Medicine Prog Note ---
Internal Medicine Subjective - Subjective Service Date: 03/24/17 Patient is:: awake, non-verbal, non-interactive, in bed, congested Patient Complaints of:: congestion Per staff patient has:: no adverse event, tolerating meds Internal Medicine Objective - Results Result Diagrams: 03/23/17 06:55 03/23/17 06:55 Recent Labs: Laboratory Last Values WBC 5.3 Th/cmm (4.8-10.8) D 03/23/17 06:55 RBC 3.13 Mil/cmm (3.80-5.10) L 03/23/17 06:55 Hgb 9.0 gm/dL (11.7-15.5) L 03/23/17 06:55 Hct 27.7 % (35.0-45.0) L 03/23/17 06:55 MCV 88.5 fl (81-100) 03/23/17 06:55 MCH 28.7 pg (27.0-31.0) 03/23/17 06:55 MCHC Differential 32.5 pg (28.0-36.0) 03/23/17 06:55 RDW 19.5 % (11.5-20.0) 03/23/17 06:55 Plt Count 180 Th/cmm (150-400) 03/23/17 06:55 MPV 8.6 fl 03/23/17 06:55 Neutrophils % 69.4 % (40.0-80.0) 03/23/17 06:55 Band Neutrophils % 14 % (0-10) H 03/21/17 06:44 Lymphocytes % 16.8 % (20.0-50.0) L 03/23/17 06:55 Monocytes % 8.8 % (2.0-10.0) 03/23/17 06:55 Eosinophils % 5.0 % (0.0-5.0) 03/23/17 06:55 Basophils % 0.0 % (0.0-2.0) 03/23/17 06:55 Neutrophils (Manual) 71 % (40-80) 03/21/17 06:44 Lymphocytes 6 % (20-50) L 03/21/17 06:44 Monocytes 7 % (2-10) 03/21/17 06:44 Eosinophils 2 % (0-5) 03/21/17 06:44 Platelet Estimate ADEQUATE (NORMAL) 03/21/17 06:44 Platelet Morphology NORMAL (NORMAL) 03/21/17 06:44 Anisocytosis 1+ 03/21/17 06:44 RBC Morph Micro Appear ABNORMAL (NORMAL) 03/21/17 06:44 Eos Smear Source URINE 03/21/17 19:01 Eos Smear Total Cells FEW EOSINOPHILS SEEN (NONE SEEN) 03/21/17 19:01 Sodium 142 mEq/L (136-145) 03/23/17 06:55 Potassium 3.5 mEq/L (3.5-5.1) 03/23/17 06:55 Chloride 114 mEq/L (98-107) H 03/23/17 06:55 Carbon Dioxide 22.9 mEq/L (21.0-31.0) 03/23/17 06:55 Anion Gap 8.6 (7.0-16.0) 03/23/17 06:55 BUN 42 mg/dL (7-25) H 03/23/17 06:55 Creatinine 1.1 mg/dL (0.6-1.2) 03/23/17 06:55 Est GFR ( Amer) > 60.0 ml/min (>90) 03/23/17 06:55 Est GFR (Non-Af Amer) 54.8 ml/min 03/23/17 06:55 BUN/Creatinine Ratio 38.2 03/23/17 06:55 Glucose 159 mg/dL (70-105) H 03/23/17 06:55 POC Glucose 124 MG/DL (70 - 105) H 03/24/17 11:30 Hemoglobin A1c % 6.8 % (4.0-6.0) H 03/19/17 12:20 Uric Acid 7.5 mg/dL (2.3-6.6) H 03/21/17 06:44 Calcium 9.4 mg/dL (8.6-10.3) 03/23/17 06:55 Phosphorus 3.3 mg/dL (2.5-5.0) 03/21/17 06:44 Magnesium 2.1 mg/dL (1.9-2.7) 03/23/17 06:55 Total Bilirubin 0.4 mg/dL (0.3-1.0) 03/21/17 06:44 AST 13 U/L (13-39) 03/21/17 06:44 ALT 12 U/L (7-52) 03/21/17 06:44 Alkaline Phosphatase 100 U/L (34-104) 03/21/17 06:44 Total Protein 7.5 gm/dL (6.0-8.3) 03/21/17 06:44 Albumin 2.9 gm/dL (3.7-5.3) L 03/21/17 06:44 Globulin 4.6 gm/dL 03/21/17 06:44 Albumin/Globulin Ratio 0.6 (1.0-1.8) L 03/21/17 06:44 Lipase 14 U/L (11-82) 03/19/17 12:20 TSH 1.19 uIU/ml (0.34-5.60) 03/21/17 06:44 Urine Source [place] 03/19/17 17:00 Urine Color YELLOW 03/19/17 17:00 Urine Clarity CLOUDY (CLEAR) H 03/19/17 17:00 Urine pH 7.5 (4.6 - 8.0) 03/19/17 17:00 Ur Specific [place] 1.005 (1.005-1.030) 03/19/17 17:00 Urine Protein 100 mg/dL (NEGATIVE) H 03/19/17 17:00 Urine Glucose (UA) NEGATIVE mg/dL (NEGATIVE) 03/19/17 17:00 Urine Ketones 15 mg/dL (NEGATIVE) H 03/19/17 17:00 Urine Blood SMALL (NEGATIVE) H 03/19/17 17:00 Urine Nitrate NEGATIVE (NEGATIVE) 03/19/17 17:00 Urine Bilirubin NEGATIVE (NEGATIVE) 03/19/17 17:00 Urine Urobilinogen 0.2 E.U./dL (0.2 - 1.0) 03/19/17 17:00 Ur Leukocyte Esterase LARGE (NEGATIVE) H 03/19/17 17:00 Urine RBC 2-5 /hpf (0-5) 03/19/17 17:00 Urine WBC >100 /hpf (0-5) H 03/19/17 17:00 Ur Epithelial Cells FEW /lpf (FEW) 03/19/17 17:00 Urine Bacteria MANY /hpf (NONE SEEN) 03/19/17 17:00 Ur Random Sodium 67 mmol/L 03/21/17 19:01 Urine Creatinine 16.0 mg/dl (28.0-217.0) L 03/21/17 19:01 Urine Microalbumin 747.4 ug/mL (Not Estab.) 03/21/17 16:03 Microalb/Creat Ratio 4917.1 mg/g creat (0.0-30.0) H 03/21/17 16:03 - Physical Exam Vitals and I&O: Vital Signs Temp 98.1 F 03/24/17 08:00 Pulse 87 03/24/17 11:14 Resp 16 03/24/17 11:14 BP 129/70 03/24/17 08:00 Pulse Ox 96 03/24/17 11:14 Intake & Output 03/23/17 03/24/17 03/24/17 18:59 06:59 18:59 Intake Total 760 1640 200 Output Total 1000 1450 150 Balance -240 190 50 Weight (lbs) 92 lb 3.2 oz 92 lb 92 lb Intake: Intake, IV Amount 100 1000 Meropenem 500 mg In 100 Sodium Chloride 0.9% 100 ml @ 100 mls/hr IV Q12HR [facility] Rx#:[id number] Sodium Chloride 0.45% 1, 1000 000 ml @ 75 mls/hr IV . [id number] [facility] Rx#:[id number] Tube Feeding 660 440 Other 200 200 Output: Urine 800 1200 Stool 200 Other 250 150 Other: Stool Characteristics Liquid Liquid Liquid Brown Brown Active Medications: Current Medications Acetaminophen (Tylenol) 650 mg GT Q4HR PRN PRN Reason: Pain (Mild) Stop: 05/18/17 19:46 Acetaminophen (Tylenol 650mg/20.3ml Suspension) 650 mg GT Q4H PRN PRN Reason: FEVER >101 Stop: 05/18/17 19:46 Last Admin: 03/20/17 03:03 Dose: 650 mg Albuterol Sulfate (Albuterol 2.5mg/3ml Neb Ud) 2.5 mg HHN Q4HRT [facility] Stop: 05/18/17 22:59 Last Admin: 03/24/17 10:58 Dose: 2.5 mg Atorvastatin Calcium (Lipitor) 40 mg PO HS [facility] PRN Reason: Protocol Stop: 05/18/17 20:59 Last Admin: 03/23/17 21:50 Dose: 40 mg Folic Acid (Folate) 1 mg GT DAILY [facility] Stop: 05/19/17 08:59 Last Admin: 03/24/17 09:34 Dose: 1 mg Guaifenesin (Robitussin) 200 mg GT Q4HR PRN PRN Reason: Cough or Congestion Stop: 05/18/17 19:46 Sodium Chloride (Nacl 0.45%) 1,000 mls @ 75 mls/hr IV .[id number] [facility] Stop: 05/19/17 14:23 Last Admin: 03/23/17 21:50 Dose: 75 mls/hr Meropenem 500 mg/ Sodium (Chloride) 100 mls @ 100 mls/hr IV Q12HR [facility] Stop: 05/20/17 14:24 Last Admin: 03/24/17 09:48 Dose: Not Given Insulin Aspart (Novolog Insulin Sliding Scale) 0 units SUBQ Q6HR [facility] PRN Reason: Protocol Stop: 05/19/17 00:00 Last Admin: 03/24/17 11:41 Dose: Not Given Insulin Detemir (Levemir Insulin) 50 units SUBQ HS [facility] Stop: 05/18/17 20:59 Last Admin: 03/23/17 21:57 Dose: 50 units Insulin Human NPH (Novolin N) 18 units SUBQ BIDAC [facility] PRN Reason: Protocol Stop: 05/19/17 07:29 Last Admin: 03/24/17 09:36 Dose: Not Given Ipratropium [place] (Atrovent Neb 0.5mg/2.5ml) 0.5 mg HHN Q4HRT [facility] Stop: 05/18/17 22:59 Last Admin: 03/24/17 10:58 Dose: 0.5 mg Lactobacillus Rhamnosus (Culturelle) 1 each GT DAILY [facility] Stop: 05/19/17 08:59 Last Admin: 03/24/17 09:34 Dose: 1 each Lactulose (Cephulac) 20 gm GT DAILY [facility] Stop: 05/19/17 08:59 Last Admin: 03/24/17 09:34 Dose: 20 gm Loperamide HCl (Imodium) 2 mg GT Q4H PRN PRN Reason: DIARRHEA Stop: 05/18/17 19:46 Lorazepam (Ativan) 0.5 mg PO Q8HR PRN; Protocol PRN Reason: Anxiety Stop: 05/18/17 19:46 Magnesium Hydroxide (Milk Of Magnesia) 30 ml GT DAILY PRN PRN Reason: Constipation Stop: 05/18/17 19:46 Metoclopramide HCl (Reglan) 10 mg GT DAILY [facility] Stop: 05/19/17 08:59 Last Admin: 03/24/17 09:35 Dose: 10 mg Mupirocin (Bactroban Oint) 1 appl NS BID [facility] Stop: 03/25/17 09:01 Last Admin: 03/24/17 09:35 Dose: 1 appl Rivaroxaban (Xarelto) 10 mg GT DAILY [facility] Stop: 05/19/17 08:59 Last Admin: 03/24/17 09:34 Dose: 10 mg Vitamin A (Vitamin A & D) 5 gm TP DAILY [facility] Stop: 05/19/17 08:59 Last Admin: 03/24/17 09:35 Dose: 5 gm General: lethargic, demented, bilateral temporal wasting, cachectic, appears older HEENT: dry oral mucosa, thinning hair, poor dentition Neck: Supple, No thyromegaly Lungs: congested, rales, ronchi Cardiovascular: RRR, Normal S1, Normal S2 Abdomen: soft, non-tender, +GT, other (colostomy) Extremities: excoriation, contracture, ulcers stage 2, ulcers stage 4 Neurological: lethargic - Procedures Procedures: Procedures Procedure Code Date BLOOD TRANSFUSION SERVICE 90819 12/16/16 BYPASS DESCENDING COLON TO CUTANEOUS, OPEN APPROACH [id number] 09/21/16 CHANGE FEEDING DEVICE IN UP INTEST TRACT, PL[employer]TE[employer]CE ME[employer]IC APPROACH [id number] 09/21/16 CHANGE GASTROSTOMY TUBE 58300 09/21/16 COLOSTOMY 88617 09/21/16 AGNIESZKA BONE 20 SQ CM/< 99389 01/28/15 DIAGNOSTIC COLONOSCOPY 07719 03/06/16 EGD BIOPSY SINGLE/MULTIPLE 77596 03/06/16 EXCISION OF DESCENDING COLON, OPEN APPROACH [id number] 09/21/16 EXCISION OF DUODENUM, ENDO, DIAGN [id number] 03/06/16 EXCISION OF SACRUM, OPEN APPROACH [id number] 09/21/16 EXCISION OF STOMACH, ENDO, DIAGN [id number] 03/06/16 IMMOBILIZ/WOUND ATTN NEC 93.59 01/28/15 INSERT INDWELLING CATH 57.94 10/18/05 INSERT TEMP BLADDER CATH 27161 10/18/05 INSERTION OF INFUSION DEV INTO SUP VENA CAVA, PERC APPROACH [id number] 09/21/16 INSPECTION OF LOWER INTESTINAL TRACT, ENDO [id number] 03/06/16 INSPECTION OF UPPER INTESTINAL TRACT, ENDO [id number] 10/27/15 LOC EXC BONE LESION NEC 77.69 01/28/15 PACKED CELL TRANSFUSION 99.04 10/20/14 REMOVAL OF PRESSURE SORE 22085 09/21/16 REPLACE GASTROSTOMY TUBE 97.02 06/09/14 RESPIRATORY VENTILATION, 24-96 CONSECUTIVE HOURS [id number] 09/21/16 TRANSFUSE NONAUT RED BLOOD CELLS IN PERIPH VEIN, PERC 77372W7 12/16/16 VENT MGMT INPAT INIT DAY 08623 09/21/16 Internal Medicine Assmt/Plan - Assessment Assessment: possible GI FISTULA HTN DM2 MRSA NARES ACUTE UTI abdominal pain dehydration, renal failure - Plan Plan: cont on iv abx supplemental oxygen as needed bronchodilator gi and renal follow up LTAC eval Nutritional Asmnt/Malnutr-PDOC - Dietary Evaluation Malnutrition Findings (Please click <Entered> for more info): Nutritional Asmnt/Malnutrition Start: 03/20/17 17: 34 Text: Status: Complete Freq: Document 03/20/17 17:34 [facility] (Rec: 03/20/17 17:48 [facility] [id number]) Nutritional Asmnt/Malnutrition Patient General Information Nutritional Screening Consult Diagnosis Acute UTi, gastrointestinal fistula Pertinent Medical Hx/Surgical Hx Mental retardation, cerebral palsy, DM, PEG, colostomy Subjective Information Nutrition Consult for low cedric score and gtube feeding received and completed. Pt is a 56-year-old female from [facility] admitted with chief complaint of stool coming out of rectum instead of colostomy bag. Pt is a poor historian. Pt has a small body frame with no muscle or fat depletion. RD confirmed feeding schedule with HALINA Jc. Current Diet Order/ Nutrition Support Diabetisource AC at 55 ml/hr x 20 mzepg=1271 kcals,66gm protein,900ml water Patient / S.O Can't verbalize diet edu Pertinent Medications Folate, Novolog, Levemir, Novolin N, Culturelle, Cephulac, Reglan, NaCl 0.45%, Vitamin A & D Pertinent Labs (03/19) Glucose 309H, A1C 6.8H (03/20) BUN 63H, Creatinine 1. 3H, Glucose 331H, POC Glucose 294H-317H Nutritional Hx/Data Height 4 ft 11 in Height (Calculated Centimeters) 149.9 Current Weight (lbs) 85 lb 8 oz Weight (Calculated Kilograms) 38.8 Weight (Calculated Grams) 38028.1 Gray Body Weight N/A Weight Status Approriate GI Symptoms GI Symptoms None Difficult in: Chewing Swallowing Food Allergies No Usual diet at home Glucerna 1.2 at 55 ml/hr x 20 hours, run 1492-5814 Skin Integrity/Comment: Cedric 10. Decubitus ulcers to sacral-coccygeal area, buttocks Estimated Nutritional Goals BEE in Kcals: Using Current wt Calories/Kcals/Kg Based on current wt 38.9 kg with consideration of decubitus ulcers Kcals Calculated 2655-6749 kcals/day (30-35 kcals/kg) Protein: Using Current wt Protein g/kg: Based on current wt 38.9 kg with consideration of decubitus ulcers Protein Calculated 47-58 gm/day (1.2-1.5 gm/kg) monitor renal labs Fluid: ml 2793-1635 ml/day (1 ml/kcal) Nutritional Problem 1. Problem Problem Increased protein needs related to Etiology altered skin integrity as evidenced by Signs/Symptoms: decubitus ulcers to sacral- coccygeal area and buttocks. Malnutrition Alert Protein-Calorie Malnutrition N/A Is there a minimum of two criteria No selected? Query Text:Check all the applicable criteria. A minimum of two criteria are recommended for diagnosis of either severe or non-severe malnutrition. Malnutrition Related to Morbid Obesity Malnutrition related to morbid obesity No Intervention/Recommendation Comments 1. Continue with current tube feeding regimen as it is adequate to meet estimated nutritional needs ideal for wound healing. 2. Reevaluate glycemic regimen due to hyperglycermia. Improved blood glucose levels will help with wound healing. Expected Outcomes/Goals Expected Outcomes/Goals Provide pt with 100% of estimated nutritional needs, improved skin integrity.
--- NOTE | 2017-03-24 15:06 | Consultation ---
DATE OF CONSULTATION: 03/20/2017 INPATIENT GI CONSULTATION REFERRING PHYSICIAN: Nasrin Franco M.D. REASON FOR CONSULTATION: Evaluation of a colostomy for signs of fistula. HISTORY OF PRESENT ILLNESS: The patient is a 56-year-old female with a past medical history significant for cerebral palsy, causing severe mental retardation, history of previous hospitalizations for pneumonia, anemia and sepsis, who is now admitted from her nursing care facility with the urinary tract infection and possible fistula of her colostomy site. The patient is a very poor historian and is largely nonverbal. Thus the history was obtained from the chart. Apparently, the patient is a resident of [facility] and was seen there to not have any stool coming from her colostomy bag for sometime, but it was noted that there was stool coming out of the rectum, thus she was transferred here for further evaluation. PAST MEDICAL HISTORY: Cerebral palsy, mental retardation, and type 2 diabetes. PAST SURGICAL HISTORY: PEG placement, colonic resection, and colostomy placement in 10/2016. FAMILY HISTORY: Noncontributory. SOCIAL HISTORY: The patient is a resident of a nursing facility, requiring 24-hour care. Unable to obtain other social history. REVIEW OF SYSTEMS: Unable to obtain given the patient's mental status. CURRENT MEDICATIONS: Tylenol as needed, Lipitor, albuterol, folic acid, Robitussin, insulin, Atrovent, lactobacillus, lactulose, levofloxacin, loperamide, Reglan, and milk of magnesia. ALLERGIES: As listed MEPERIDINE, PENICILLIN, PROCHLORPERAZINE, RISPERIDONE, and OLOPATADINE. PHYSICAL EXAMINATION: VITAL SIGNS: Blood pressure 112/69, pulse of 108, 98.4 Fahrenheit, respiration rate 18, 100% on room air. GENERAL: The patient is lying in bed in a contracted state, nonverbal. HEAD, EARS, EYES, NOSE AND THROAT: No scleral icterus is apparent. NECK: No JVD is apparent. ABDOMEN: There is a PEG site that appears clean, dry, and intact. There is a colostomy site with a bag attached to the colostomy and brown stool content within the bag. Abdomen is otherwise soft. EXTREMITIES: Contracted. NEUROLOGIC: No mental status. LABORATORIES: Admission labs show white count of 5.7, hemoglobin 9.5, and platelet count 205,000. Sodium 143, potassium 3.8, BUN 63, creatinine 1.3, and lipase 14. U-tox shows large leukocyte esterase and greater than 100 white blood cells and many bacteria. IMAGING STUDIES: Abdomen and pelvis CT was obtained on admission without contrast and there is noted renal calculi, bilateral hydronephrosis, a 2 cm diverticulum extending from the urinary bladder, a malpositioned Uribe catheter, a large hiatal hernia, scoliosis, and a PEG tube is seen to be in place. IMPRESSION: This is a 56-year-old female with cerebral palsy and accompanied mental retardation who was sent to the hospital for a history of no stool coming out of her colostomy bag and the possibility of a fistulous tract into the rectum. 1. Colostomy bag malfunction. 2. Urinary tract infection. 3. Cerebral palsy. 4. Mental retardation. DISCUSSION: At this time, the colostomy bag is functioning, I think maybe because the nursing staff had given an ample amount of laxatives by mouth or through the PEG tube. There is brown stool within the bag at this time. At least at the [place], there is no stool coming out of the rectum. In reviewing the operative report, it appears that the descending colon and sigmoid colon were redundant and were resected in 10/2016. At that time, the colostomy bag was placed. There does appear to still be at least a rectum that is not connected to the remainder of the colon. It is not unusual for there to be content within the rectum, usually mucus-like substance that can come out. Given that the colostomy bag is functioning right now with stool, I do not believe that there is an obvious fistula to the rectum. However, if stool is to be seen coming from this area and the colostomy bag is truly malfunctioning here, according to the hospital, the next step would be to obtain a CT scan with both oral and per rectum contrast. We would have to use Gastrografin given the possibility of a fistula. If the fistula is found on that exam, then a surgical consultation will be required. PLAN: We will continue to give a strong bowel regimen as already ordered as this seems to be helping the stool passage into the colostomy bag. We will monitor the output while she is here and if it does appear the stool is coming from the rectum, we will get another CT scan with the above-mentioned contrast. Continue antibiotics for urinary tract infection and continue PEG tube feeding. Thank you Dr. Franco for allowing me to assist you in care of this patient. Please call us with any further question. JOB# [id number]
--- NOTE | 2017-03-24 16:12 | GI Progress Note ---
Subjective - Review of Systems Service Date: 03/24/17 Events since last encounter: Ample amount of stool seen to be coming from the colostomy site. Objective - Results Result Diagrams: 03/23/17 06:55 03/23/17 06:55 Recent Labs: Laboratory Last Values WBC 5.3 Th/cmm (4.8-10.8) D 03/23/17 06:55 RBC 3.13 Mil/cmm (3.80-5.10) L 03/23/17 06:55 Hgb 9.0 gm/dL (11.7-15.5) L 03/23/17 06:55 Hct 27.7 % (35.0-45.0) L 03/23/17 06:55 MCV 88.5 fl (81-100) 03/23/17 06:55 MCH 28.7 pg (27.0-31.0) 03/23/17 06:55 MCHC Differential 32.5 pg (28.0-36.0) 03/23/17 06:55 RDW 19.5 % (11.5-20.0) 03/23/17 06:55 Plt Count 180 Th/cmm (150-400) 03/23/17 06:55 MPV 8.6 fl 03/23/17 06:55 Neutrophils % 69.4 % (40.0-80.0) 03/23/17 06:55 Band Neutrophils % 14 % (0-10) H 03/21/17 06:44 Lymphocytes % 16.8 % (20.0-50.0) L 03/23/17 06:55 Monocytes % 8.8 % (2.0-10.0) 03/23/17 06:55 Eosinophils % 5.0 % (0.0-5.0) 03/23/17 06:55 Basophils % 0.0 % (0.0-2.0) 03/23/17 06:55 Neutrophils (Manual) 71 % (40-80) 03/21/17 06:44 Lymphocytes 6 % (20-50) L 03/21/17 06:44 Monocytes 7 % (2-10) 03/21/17 06:44 Eosinophils 2 % (0-5) 03/21/17 06:44 Platelet Estimate ADEQUATE (NORMAL) 03/21/17 06:44 Platelet Morphology NORMAL (NORMAL) 03/21/17 06:44 Anisocytosis 1+ 03/21/17 06:44 RBC Morph Micro Appear ABNORMAL (NORMAL) 03/21/17 06:44 Eos Smear Source URINE 03/21/17 19:01 Eos Smear Total Cells FEW EOSINOPHILS SEEN (NONE SEEN) 03/21/17 19:01 Sodium 142 mEq/L (136-145) 03/23/17 06:55 Potassium 3.5 mEq/L (3.5-5.1) 03/23/17 06:55 Chloride 114 mEq/L (98-107) H 03/23/17 06:55 Carbon Dioxide 22.9 mEq/L (21.0-31.0) 03/23/17 06:55 Anion Gap 8.6 (7.0-16.0) 03/23/17 06:55 BUN 42 mg/dL (7-25) H 03/23/17 06:55 Creatinine 1.1 mg/dL (0.6-1.2) 03/23/17 06:55 Est GFR ( Amer) > 60.0 ml/min (>90) 03/23/17 06:55 Est GFR (Non-Af Amer) 54.8 ml/min 03/23/17 06:55 BUN/Creatinine Ratio 38.2 03/23/17 06:55 Glucose 159 mg/dL (70-105) H 03/23/17 06:55 POC Glucose 124 MG/DL (70 - 105) H 03/24/17 11:30 Hemoglobin A1c % 6.8 % (4.0-6.0) H 03/19/17 12:20 Uric Acid 7.5 mg/dL (2.3-6.6) H 03/21/17 06:44 Calcium 9.4 mg/dL (8.6-10.3) 03/23/17 06:55 Phosphorus 3.3 mg/dL (2.5-5.0) 03/21/17 06:44 Magnesium 2.1 mg/dL (1.9-2.7) 03/23/17 06:55 Total Bilirubin 0.4 mg/dL (0.3-1.0) 03/21/17 06:44 AST 13 U/L (13-39) 03/21/17 06:44 ALT 12 U/L (7-52) 03/21/17 06:44 Alkaline Phosphatase 100 U/L (34-104) 03/21/17 06:44 Total Protein 7.5 gm/dL (6.0-8.3) 03/21/17 06:44 Albumin 2.9 gm/dL (3.7-5.3) L 03/21/17 06:44 Globulin 4.6 gm/dL 03/21/17 06:44 Albumin/Globulin Ratio 0.6 (1.0-1.8) L 03/21/17 06:44 Lipase 14 U/L (11-82) 03/19/17 12:20 TSH 1.19 uIU/ml (0.34-5.60) 03/21/17 06:44 Urine Source [place] 03/19/17 17:00 Urine Color YELLOW 03/19/17 17:00 Urine Clarity CLOUDY (CLEAR) H 03/19/17 17:00 Urine pH 7.5 (4.6 - 8.0) 03/19/17 17:00 Ur Specific [place] 1.005 (1.005-1.030) 03/19/17 17:00 Urine Protein 100 mg/dL (NEGATIVE) H 03/19/17 17:00 Urine Glucose (UA) NEGATIVE mg/dL (NEGATIVE) 03/19/17 17:00 Urine Ketones 15 mg/dL (NEGATIVE) H 03/19/17 17:00 Urine Blood SMALL (NEGATIVE) H 03/19/17 17:00 Urine Nitrate NEGATIVE (NEGATIVE) 03/19/17 17:00 Urine Bilirubin NEGATIVE (NEGATIVE) 03/19/17 17:00 Urine Urobilinogen 0.2 E.U./dL (0.2 - 1.0) 03/19/17 17:00 Ur Leukocyte Esterase LARGE (NEGATIVE) H 03/19/17 17:00 Urine RBC 2-5 /hpf (0-5) 03/19/17 17:00 Urine WBC >100 /hpf (0-5) H 03/19/17 17:00 Ur Epithelial Cells FEW /lpf (FEW) 03/19/17 17:00 Urine Bacteria MANY /hpf (NONE SEEN) 03/19/17 17:00 Ur Random Sodium 67 mmol/L 03/21/17 19:01 Urine Creatinine 16.0 mg/dl (28.0-217.0) L 03/21/17 19:01 Urine Microalbumin 747.4 ug/mL (Not Estab.) 03/21/17 16:03 Microalb/Creat Ratio 4917.1 mg/g creat (0.0-30.0) H 03/21/17 16:03 - Physical Exam Vitals and I&O: Vital Signs Temp 97.9 F 03/24/17 12:00 Pulse 85 03/24/17 15:18 Resp 16 03/24/17 15:18 BP 142/87 03/24/17 12:00 Pulse Ox 96 03/24/17 15:18 Intake & Output 03/23/17 03/24/17 03/24/17 18:59 06:59 18:59 Intake Total 760 1640 200 Output Total 1000 1450 150 Balance -240 190 50 Weight (lbs) 41.821 kg 41.73 kg 41.73 kg Intake: Intake, IV Amount 100 1000 Meropenem 500 mg In 100 Sodium Chloride 0.9% 100 ml @ 100 mls/hr IV Q12HR [facility] Rx#:[id number] Sodium Chloride 0.45% 1, 1000 000 ml @ 75 mls/hr IV . [id number] [facility] Rx#:[id number] Tube Feeding 660 440 Other 200 200 Output: Urine 800 1200 Stool 200 Other 250 150 Other: Stool Characteristics Liquid Liquid Liquid Brown Brown Active Medications: Current Medications Acetaminophen (Tylenol) 650 mg GT Q4HR PRN PRN Reason: Pain (Mild) Stop: 05/18/17 19:46 Acetaminophen (Tylenol 650mg/20.3ml Suspension) 650 mg GT Q4H PRN PRN Reason: FEVER >101 Stop: 05/18/17 19:46 Last Admin: 03/20/17 03:03 Dose: 650 mg Albuterol Sulfate (Albuterol 2.5mg/3ml Neb Ud) 2.5 mg HHN Q4HRT [facility] Stop: 05/18/17 22:59 Last Admin: 03/24/17 15:18 Dose: 2.5 mg Atorvastatin Calcium (Lipitor) 40 mg PO HS [facility] PRN Reason: Protocol Stop: 05/18/17 20:59 Last Admin: 03/23/17 21:50 Dose: 40 mg Folic Acid (Folate) 1 mg GT DAILY [facility] Stop: 05/19/17 08:59 Last Admin: 03/24/17 09:34 Dose: 1 mg Guaifenesin (Robitussin) 200 mg GT Q4HR PRN PRN Reason: Cough or Congestion Stop: 05/18/17 19:46 Sodium Chloride (Nacl 0.45%) 1,000 mls @ 75 mls/hr IV .[id number] [facility] Stop: 05/19/17 14:23 Last Admin: 03/23/17 21:50 Dose: 75 mls/hr Meropenem 500 mg/ Sodium (Chloride) 100 mls @ 100 mls/hr IV Q12HR [facility] Stop: 05/20/17 14:24 Last Admin: 03/24/17 09:48 Dose: Not Given Insulin Aspart (Novolog Insulin Sliding Scale) 0 units SUBQ Q6HR [facility] PRN Reason: Protocol Stop: 05/19/17 00:00 Last Admin: 03/24/17 11:41 Dose: Not Given Insulin Detemir (Levemir Insulin) 50 units SUBQ HS [facility] Stop: 05/18/17 20:59 Last Admin: 03/23/17 21:57 Dose: 50 units Insulin Human NPH (Novolin N) 18 units SUBQ BIDAC [facility] PRN Reason: Protocol Stop: 05/19/17 07:29 Last Admin: 03/24/17 09:36 Dose: Not Given Ipratropium [place] (Atrovent Neb 0.5mg/2.5ml) 0.5 mg HHN Q4HRT [facility] Stop: 05/18/17 22:59 Last Admin: 03/24/17 15:18 Dose: 0.5 mg Lactobacillus Rhamnosus (Culturelle) 1 each GT DAILY [facility] Stop: 05/19/17 08:59 Last Admin: 03/24/17 09:34 Dose: 1 each Lactulose (Cephulac) 20 gm GT DAILY [facility] Stop: 05/19/17 08:59 Last Admin: 03/24/17 09:34 Dose: 20 gm Loperamide HCl (Imodium) 2 mg GT Q4H PRN PRN Reason: DIARRHEA Stop: 05/18/17 19:46 Lorazepam (Ativan) 0.5 mg PO Q8HR PRN; Protocol PRN Reason: Anxiety Stop: 05/18/17 19:46 Magnesium Hydroxide (Milk Of Magnesia) 30 ml GT DAILY PRN PRN Reason: Constipation Stop: 05/18/17 19:46 Metoclopramide HCl (Reglan) 10 mg GT DAILY [facility] Stop: 05/19/17 08:59 Last Admin: 03/24/17 09:35 Dose: 10 mg Mupirocin (Bactroban Oint) 1 appl NS BID [facility] Stop: 03/25/17 09:01 Last Admin: 03/24/17 09:35 Dose: 1 appl Rivaroxaban (Xarelto) 10 mg GT DAILY [facility] Stop: 05/19/17 08:59 Last Admin: 03/24/17 09:34 Dose: 10 mg Vitamin A (Vitamin A & D) 5 gm TP DAILY [facility] Stop: 05/19/17 08:59 Last Admin: 03/24/17 09:35 Dose: 5 gm General: Alert, Cooperative, No acute distress HEENT: Atraumatic, PERRLA, EOMI, Mucous membr. moist/pink Neck: Supple, +2 carotid pulse wo bruit Cardiovascular: Regular rate, Normal S1, Normal S2 Lungs: Clear to auscultation Abdomen: Bowel sounds, Soft, Other (left colostomy bag) Extremities: no Edema Neurological: Sensation intact Skin: no Rash Psych/Mental Status: Mood NL - Procedures Procedures: Procedures Procedure Code Date BLOOD TRANSFUSION SERVICE 04251 12/16/16 BYPASS DESCENDING COLON TO CUTANEOUS, OPEN APPROACH [id number] 09/21/16 CHANGE FEEDING DEVICE IN UP INTEST TRACT, LPTA APPROACH [id number] 09/21/16 CHANGE GASTROSTOMY TUBE 55874 09/21/16 COLOSTOMY 67979 09/21/16 AGNIESZKA BONE 20 SQ CM/< 70494 01/28/15 DIAGNOSTIC COLONOSCOPY 96838 03/06/16 EGD BIOPSY SINGLE/MULTIPLE 26179 03/06/16 EXCISION OF DESCENDING COLON, OPEN APPROACH [id number] 09/21/16 EXCISION OF DUODENUM, ENDO, DIAGN [id number] 03/06/16 EXCISION OF SACRUM, OPEN APPROACH [id number] 09/21/16 EXCISION OF STOMACH, ENDO, DIAGN [id number] 03/06/16 IMMOBILIZ/WOUND ATTN NEC 93.59 01/28/15 INSERT INDWELLING CATH 57.94 10/18/05 INSERT TEMP BLADDER CATH 26644 10/18/05 INSERTION OF INFUSION DEV INTO SUP VENA CAVA, PERC APPROACH [id number] 09/21/16 INSPECTION OF LOWER INTESTINAL TRACT, ENDO [id number] 03/06/16 INSPECTION OF UPPER INTESTINAL TRACT, ENDO [id number] 10/27/15 LOC EXC BONE LESION NEC 77.69 01/28/15 PACKED CELL TRANSFUSION 99.04 10/20/14 REMOVAL OF PRESSURE SORE 16933 09/21/16 REPLACE GASTROSTOMY TUBE 97.02 06/09/14 RESPIRATORY VENTILATION, 24-96 CONSECUTIVE HOURS [id number] 09/21/16 TRANSFUSE NONAUT RED BLOOD CELLS IN PERIPH VEIN, PERC [id number] 12/16/16 VENT MGMT INPAT INIT DAY 12394 09/21/16 Assessment/Plan - Problem List Patient Problems: All Active Problems Anemia (Acute 03/06/16) D64.9 Dyspnea (Acute) R06.00 Fever, unspecified (Acute) R50.9 HYPOTENSION WITH TACHYCARDIA AND CONGEST (Acute) Hyperglycemia (Acute) R73.9 Hyperosmolality and/or hypernatremia (Acute) E87.0 Mental retardation (Acute) F79 Other abnormal clinical finding (Acute) R68.89 Pneumonia (Acute) J18.9 Staphylococcal sepsis (Acute) Uncontrolled diabetes mellitus (Acute) E11.65 Urinary tract infection (Acute) - Plan Plan: # Possible GI fistula: - CT scan with oral contrast shows no fistula - Colostomy bag functioning with brown stool in the bag - Rectal pouch may have contained retained stool vs mucous, which may have been what was observed prior - Ok to continue tube feeds - Abx per primary
[2017-03-24] MEDS: Sodium Chloride 0.45% 1,000 ML IV SCH (19:05)
[2017-03-24] MEDS: Insulin Detemir 100 units/mL 10mL Vial SUBQ SCH (22:21)
[2017-03-25] MEDS: INSULIN ASPART SLIDING SCALE 100 UNITS/ML UNIT SUBQ SCH ×3 (00:16→12:29)
[2017-03-25] MEDS: Ipratropium Neb 0.5 mg/2.5 mL UD HHN SCH ×3 (03:02→11:29)
[2017-03-25] MEDS: Albuterol Nebulizer 2.5mg/3mL HHN SCH ×3 (03:03→11:29)
[2017-03-25 06:10] LABS: % EOSINOPHILS 7.4 % (0.0-5.0); % LYMPHOCYTES 24.1 % (20.0-50.0); % MONOCYTES 7.9 % (2.0-10.0); % NEUTROPHILS 60.6 % (40.0-80.0); HEMATOCRIT 29.6 % (35.0-45.0); HEMOGLOBIN 9.7 gm/dL (11.7-15.5); MEAN CELL VOLUME 87.2 fl (81-100); MEAN CORPUSCULAR HEMOGLOBIN 28.5 pg (27.0-31.0); MEAN CORPUSCULAR HGB CONC 32.7 pg (28.0-36.0); MEAN PLATELET VOLUME 8.6 fl; NEUTROPHILE ABSOLUTE 2.7 Th/cmm (1.8-8.0); PLATELET COUNT 162 Th/cmm (150-400); RED BLOOD COUNT 3.39 Mil/cmm (3.80-5.10); RED CELL DISTRIBUTION WIDTH 18.6 % (11.5-20.0); WHITE BLOOD COUNT 4.5 Th/cmm (4.8-10.8)
[2017-03-25 06:19] LABS: ANION GAP 7.7 (7.0-16.0); BUN - UREA NITROGEN 35 mg/dL (7-25); CALCIUM SERUM 9.7 mg/dL (8.6-10.3); CARBON DIOXIDE 23.9 mEq/L (21.0-31.0); CHLORIDE 112 mEq/L (98-107); GLUCOSE 88 mg/dL (70-105); POTASSIUM SERUM 3.6 mEq/L (3.5-5.1); SODIUM SERUM 140 mEq/L (136-145)
[2017-03-25] MEDS: INSULIN HUMAN ISOPHANE (NPH) 100 UNITS/ML SUBQ SCH (06:44)
[2017-03-25] MEDS: Meropenem 500 MG in Sodium Chloride 0.9% 100 ML IV SCH (08:52)
[2017-03-25] MEDS: Sodium Chloride 0.45% 1,000 ML IV SCH (08:53)
[2017-03-25] MEDS: Lactulose 10 Gm/15 mL 30mL UDC GT SCH (08:54)
[2017-03-25] MEDS: Lactobacillus Rhamnosus 10 Billion CFU Capsule GT SCH (08:54)
[2017-03-25] MEDS: Multivitamin w/ Minerals Tab GT SCH (08:55)
[2017-03-25] MEDS: Vitamin A/Vitamin D 5 gm Packet TP SCH (08:57)
--- NOTE | 2017-03-25 10:55 | GI Progress Note ---
Subjective - Review of Systems Service Date: 03/25/17 Events since last encounter: No new events. Colostomy is functioning. Objective - Results Result Diagrams: 03/25/17 05:34 03/25/17 05:34 Recent Labs: Laboratory Last Values WBC 4.5 Th/cmm (4.8-10.8) L 03/25/17 05:34 RBC 3.39 Mil/cmm (3.80-5.10) L 03/25/17 05:34 Hgb 9.7 gm/dL (11.7-15.5) L 03/25/17 05:34 Hct 29.6 % (35.0-45.0) L 03/25/17 05:34 MCV 87.2 fl (81-100) 03/25/17 05:34 MCH 28.5 pg (27.0-31.0) 03/25/17 05:34 MCHC Differential 32.7 pg (28.0-36.0) 03/25/17 05:34 RDW 18.6 % (11.5-20.0) 03/25/17 05:34 Plt Count 162 Th/cmm (150-400) 03/25/17 05:34 MPV 8.6 fl 03/25/17 05:34 Neutrophils % 60.6 % (40.0-80.0) 03/25/17 05:34 Band Neutrophils % 14 % (0-10) H 03/21/17 06:44 Lymphocytes % 24.1 % (20.0-50.0) 03/25/17 05:34 Monocytes % 7.9 % (2.0-10.0) 03/25/17 05:34 Eosinophils % 7.4 % (0.0-5.0) H 03/25/17 05:34 Basophils % 0.0 % (0.0-2.0) 03/25/17 05:34 Neutrophils (Manual) 71 % (40-80) 03/21/17 06:44 Lymphocytes 6 % (20-50) L 03/21/17 06:44 Monocytes 7 % (2-10) 03/21/17 06:44 Eosinophils 2 % (0-5) 03/21/17 06:44 Platelet Estimate ADEQUATE (NORMAL) 03/21/17 06:44 Platelet Morphology NORMAL (NORMAL) 03/21/17 06:44 Anisocytosis 1+ 03/21/17 06:44 RBC Morph Micro Appear ABNORMAL (NORMAL) 03/21/17 06:44 Eos Smear Source URINE 03/21/17 19:01 Eos Smear Total Cells FEW EOSINOPHILS SEEN (NONE SEEN) 03/21/17 19:01 Sodium 140 mEq/L (136-145) 03/25/17 05:34 Potassium 3.6 mEq/L (3.5-5.1) 03/25/17 05:34 Chloride 112 mEq/L (98-107) H 03/25/17 05:34 Carbon Dioxide 23.9 mEq/L (21.0-31.0) 03/25/17 05:34 Anion Gap 7.7 (7.0-16.0) 03/25/17 05:34 BUN 35 mg/dL (7-25) H 03/25/17 05:34 Creatinine 1.0 mg/dL (0.6-1.2) 03/25/17 05:34 Est GFR ( Amer) > 60.0 ml/min (>90) 03/25/17 05:34 Est GFR (Non-Af Amer) > 60.0 ml/min 03/25/17 05:34 BUN/Creatinine Ratio 35.0 03/25/17 05:34 Glucose 88 mg/dL (70-105) 03/25/17 05:34 POC Glucose 101 MG/DL (70 - 105) 03/25/17 08:42 Hemoglobin A1c % 6.8 % (4.0-6.0) H 03/19/17 12:20 Uric Acid 7.5 mg/dL (2.3-6.6) H 03/21/17 06:44 Calcium 9.7 mg/dL (8.6-10.3) 03/25/17 05:34 Phosphorus 3.3 mg/dL (2.5-5.0) 03/21/17 06:44 Magnesium 2.1 mg/dL (1.9-2.7) 03/23/17 06:55 Total Bilirubin 0.4 mg/dL (0.3-1.0) 03/21/17 06:44 AST 13 U/L (13-39) 03/21/17 06:44 ALT 12 U/L (7-52) 03/21/17 06:44 Alkaline Phosphatase 100 U/L (34-104) 03/21/17 06:44 Total Protein 7.5 gm/dL (6.0-8.3) 03/21/17 06:44 Albumin 2.9 gm/dL (3.7-5.3) L 03/21/17 06:44 Globulin 4.6 gm/dL 03/21/17 06:44 Albumin/Globulin Ratio 0.6 (1.0-1.8) L 03/21/17 06:44 Lipase 14 U/L (11-82) 03/19/17 12:20 TSH 1.19 uIU/ml (0.34-5.60) 03/21/17 06:44 Urine Source [place] 03/19/17 17:00 Urine Color YELLOW 03/19/17 17:00 Urine Clarity CLOUDY (CLEAR) H 03/19/17 17:00 Urine pH 7.5 (4.6 - 8.0) 03/19/17 17:00 Ur Specific [place] 1.005 (1.005-1.030) 03/19/17 17:00 Urine Protein 100 mg/dL (NEGATIVE) H 03/19/17 17:00 Urine Glucose (UA) NEGATIVE mg/dL (NEGATIVE) 03/19/17 17:00 Urine Ketones 15 mg/dL (NEGATIVE) H 03/19/17 17:00 Urine Blood SMALL (NEGATIVE) H 03/19/17 17:00 Urine Nitrate NEGATIVE (NEGATIVE) 03/19/17 17:00 Urine Bilirubin NEGATIVE (NEGATIVE) 03/19/17 17:00 Urine Urobilinogen 0.2 E.U./dL (0.2 - 1.0) 03/19/17 17:00 Ur Leukocyte Esterase LARGE (NEGATIVE) H 03/19/17 17:00 Urine RBC 2-5 /hpf (0-5) 03/19/17 17:00 Urine WBC >100 /hpf (0-5) H 03/19/17 17:00 Ur Epithelial Cells FEW /lpf (FEW) 03/19/17 17:00 Urine Bacteria MANY /hpf (NONE SEEN) 03/19/17 17:00 Ur Random Sodium 67 mmol/L 03/21/17 19:01 Urine Creatinine 16.0 mg/dl (28.0-217.0) L 03/21/17 19:01 Urine Microalbumin 747.4 ug/mL (Not Estab.) 03/21/17 16:03 Microalb/Creat Ratio 4917.1 mg/g creat (0.0-30.0) H 03/21/17 16:03 - Physical Exam Vitals and I&O: Vital Signs Temp 98.2 F 03/25/17 07:43 Pulse 92 03/25/17 07:43 Resp 19 03/25/17 08:00 BP 130/80 03/25/17 07:43 Pulse Ox 100 03/25/17 07:43 Intake & Output 03/24/17 03/25/17 03/25/17 18:59 06:59 18:59 Intake Total 2095 100 1000 Output Total 1200 Balance 214 372 0884 Weight (lbs) 41.73 kg Intake: Intake, IV Amount 0500 619 3448 Meropenem 500 mg In 100 Sodium Chloride 0.9% 100 ml @ 100 mls/hr IV Q12HR [facility] Rx#:[id number] Sodium Chloride 0.45% 1, 1000 1000 000 ml @ 75 mls/hr IV . [id number] [facility] Rx#:[id number] Oral 0 TPN/PPN 495 Other 600 Output: Urine 750 Other 450 Other: Stool Characteristics Liquid Liquid Liquid Brown Brown Brown Active Medications: Current Medications Acetaminophen (Tylenol) 650 mg GT Q4HR PRN PRN Reason: Pain (Mild) Stop: 05/18/17 19:46 Acetaminophen (Tylenol 650mg/20.3ml Suspension) 650 mg GT Q4H PRN PRN Reason: FEVER >101 Stop: 05/18/17 19:46 Last Admin: 03/20/17 03:03 Dose: 650 mg Albuterol Sulfate (Albuterol 2.5mg/3ml Neb Ud) 2.5 mg HHN Q4HRT [facility] Stop: 05/18/17 22:59 Last Admin: 03/25/17 07:06 Dose: 2.5 mg Atorvastatin Calcium (Lipitor) 40 mg PO HS [facility] PRN Reason: Protocol Stop: 05/18/17 20:59 Last Admin: 03/24/17 22:15 Dose: 40 mg Folic Acid (Folate) 1 mg GT DAILY [facility] Stop: 05/19/17 08:59 Last Admin: 03/25/17 08:54 Dose: 1 mg Guaifenesin (Robitussin) 200 mg GT Q4HR PRN PRN Reason: Cough or Congestion Stop: 05/18/17 19:46 Sodium Chloride (Nacl 0.45%) 1,000 mls @ 75 mls/hr IV .[id number] [facility] Stop: 05/19/17 14:23 Last Admin: 03/25/17 08:53 Dose: 75 mls/hr Meropenem 500 mg/ Sodium (Chloride) 100 mls @ 100 mls/hr IV Q12HR [facility] Stop: 05/20/17 14:24 Last Admin: 03/25/17 08:52 Dose: 100 mls/hr Insulin Aspart (Novolog Insulin Sliding Scale) 0 units SUBQ Q6HR [facility] PRN Reason: Protocol Stop: 05/19/17 00:00 Last Admin: 03/25/17 06:43 Dose: Not Given Insulin Detemir (Levemir Insulin) 50 units SUBQ HS [facility] Stop: 05/18/17 20:59 Last Admin: 03/24/17 22:21 Dose: 50 units Insulin Human NPH (Novolin N) 18 units SUBQ BIDAC [facility] PRN Reason: Protocol Stop: 05/19/17 07:29 Last Admin: 03/25/17 06:44 Dose: Not Given Ipratropium [place] (Atrovent Neb 0.5mg/2.5ml) 0.5 mg HHN Q4HRT [facility] Stop: 05/18/17 22:59 Last Admin: 03/25/17 07:06 Dose: 0.5 mg Lactobacillus Rhamnosus (Culturelle) 1 each GT DAILY [facility] Stop: 05/19/17 08:59 Last Admin: 03/25/17 08:54 Dose: 1 each Lactulose (Cephulac) 20 gm GT DAILY [facility] Stop: 05/19/17 08:59 Last Admin: 03/25/17 08:54 Dose: 20 gm Loperamide HCl (Imodium) 2 mg GT Q4H PRN PRN Reason: DIARRHEA Stop: 05/18/17 19:46 Lorazepam (Ativan) 0.5 mg PO Q8HR PRN; Protocol PRN Reason: Anxiety Stop: 05/18/17 19:46 Last Admin: 03/25/17 10:18 Dose: 0.5 mg Magnesium Hydroxide (Milk Of Magnesia) 30 ml GT DAILY PRN PRN Reason: Constipation Stop: 05/18/17 19:46 Metoclopramide HCl (Reglan) 10 mg GT DAILY [facility] Stop: 05/19/17 08:59 Last Admin: 03/25/17 08:54 Dose: 10 mg Rivaroxaban (Xarelto) 10 mg GT DAILY [facility] Stop: 05/19/17 08:59 Last Admin: 03/25/17 08:54 Dose: 10 mg Vitamin A (Vitamin A & D) 5 gm TP DAILY [facility] Stop: 05/19/17 08:59 Last Admin: 03/25/17 08:57 Dose: 5 gm General: Alert, Cooperative, No acute distress HEENT: Atraumatic, PERRLA, EOMI, Mucous membr. moist/pink Neck: Supple, +2 carotid pulse wo bruit Cardiovascular: Regular rate, Normal S1, Normal S2 Lungs: Clear to auscultation Abdomen: Bowel sounds, Soft, Other (left colostomy bag) Extremities: no Edema Neurological: Sensation intact Skin: no Rash Psych/Mental Status: Mood NL - Procedures Procedures: Procedures Procedure Code Date BLOOD TRANSFUSION SERVICE 22959 12/16/16 BYPASS DESCENDING COLON TO CUTANEOUS, OPEN APPROACH [id number] 09/21/16 CHANGE FEEDING DEVICE IN UP INTEST TRACT, FORENSIC [employer]UCTURAL ENGINEER APPROACH [id number] 09/21/16 CHANGE GASTROSTOMY TUBE 35004 09/21/16 COLOSTOMY 69446 09/21/16 AGNIESZKA BONE 20 SQ CM/< 97880 01/28/15 DIAGNOSTIC COLONOSCOPY 36433 03/06/16 EGD BIOPSY SINGLE/MULTIPLE 14336 03/06/16 EXCISION OF DESCENDING COLON, OPEN APPROACH [id number] 09/21/16 EXCISION OF DUODENUM, ENDO, DIAGN [id number] 03/06/16 EXCISION OF SACRUM, OPEN APPROACH [id number] 09/21/16 EXCISION OF STOMACH, ENDO, DIAGN [id number] 03/06/16 IMMOBILIZ/WOUND ATTN NEC 93.59 01/28/15 INSERT INDWELLING CATH 57.94 10/18/05 INSERT TEMP BLADDER CATH 55392 10/18/05 INSERTION OF INFUSION DEV INTO SUP VENA CAVA, PERC APPROACH 47LY41H 09/21/16 INSPECTION OF LOWER INTESTINAL TRACT, ENDO [id number] 03/06/16 INSPECTION OF UPPER INTESTINAL TRACT, ENDO [id number] 10/27/15 LOC EXC BONE LESION NEC 77.69 01/28/15 PACKED CELL TRANSFUSION 99.04 10/20/14 REMOVAL OF PRESSURE SORE 02938 09/21/16 REPLACE GASTROSTOMY TUBE 97.02 06/09/14 RESPIRATORY VENTILATION, 24-96 CONSECUTIVE HOURS [id number] 09/21/16 TRANSFUSE NONAUT RED BLOOD CELLS IN PERIPH VEIN, PERC 26038W1 12/16/16 VENT MGMT INPAT INIT DAY 88878 09/21/16 Assessment/Plan - Problem List Patient Problems: All Active Problems Anemia (Acute 03/06/16) D64.9 Dyspnea (Acute) R06.00 Fever, unspecified (Acute) R50.9 HYPOTENSION WITH TACHYCARDIA AND CONGEST (Acute) Hyperglycemia (Acute) R73.9 Hyperosmolality and/or hypernatremia (Acute) E87.0 Mental retardation (Acute) F79 Other abnormal clinical finding (Acute) R68.89 Pneumonia (Acute) J18.9 Staphylococcal sepsis (Acute) Uncontrolled diabetes mellitus (Acute) E11.65 Urinary tract infection (Acute) - Plan Plan: # Possible GI fistula: - CT scan with oral contrast shows no fistula - Colostomy bag functioning with brown stool in the bag - Rectal pouch may have contained retained stool vs mucous, which may have been what was observed prior - Ok to continue tube feeds - Abx per primary Thank you for allowing me to participate in the care of this patient.
--- NOTE | 2017-03-25 14:03 | Discharge Summary ---
DATE OF DISCHARGE: 03/25/2017 CHIEF COMPLAINT: Stool coming out the wrong way, not coming out the colostomy. FINAL DIAGNOSES: Acute urinary tract infection, possible gastrointestinal fistula, mental retardation, hypertension, diabetes, abdominal pain, dehydration, renal failure, functional quadriplegia, anemia, leukopenia, renal insufficiency. HISTORY OF PRESENT ILLNESS: This is a 56-year-old female with history of mental retardation, dysphagia with G-tube. She gets ulceration with colostomy. Apparently, stool was not coming out the colostomy, coming out through the rectum. There was a question of fistula. PHYSICAL EXAMINATION: VITAL SIGNS: Blood pressure 118/64, respirations 18, pulse 80, temperature 98.6. GENERAL: Elderly female, appears chronically ill. NECK: Supple. No mass. LUNGS: Equal breath sounds, few rhonchi. HEART: Regular rate and rhythm without appreciable murmurs. ABDOMEN: Soft, nontender. EXTREMITIES: Positive excoriations. NEUROLOGIC: Limited. HOSPITAL COURSE: The patient was admitted to medical floor, continued on oxygen and bronchodilator treatment. Chest x-ray showed a large retropharyngeal hiatal hernia. The patient was referred to GI, was seen by Dr. Byrd. Renal was consulted secondary to renal failure and was seen by Dr. Louie. The patient continues to require IV antibiotic. The patient will be transferred to long-term acute care. CONDITION ON DISCHARGE: Fair. DISCHARGE INSTRUCTIONS: The patient to continue on IV antibiotic at long-term acute care. JOB# [id number]
== END 2017-03-25 16:00 | DRG 393 ==
LOC: ER 11:50 → MSI 16:00
PROVIDERS: ADMIT Internal Medicine; ATTEND Internal Medicine
DX: K94.03 Colostomy malfunction (principal); R53.2 Functional quadriplegia; E43 Unspecified severe protein-calorie malnutrition; N17.9 Acute kidney failure, unspecified; J90 Pleural effusion, not elsewhere classified; K63.2 Fistula of intestine; N39.0 Urinary tract infection, site not specified; Z68.1 Body mass index [BMI] 19.9 or less, adult; N13.2 Hydronephrosis with renal and ureteral calculous obstruction; T83.028A Displacement of other urinary catheter, initial encounter; E86.0 Dehydration; L89.159 Pressure ulcer of sacral region, unspecified stage; M41.9 Scoliosis, unspecified; F79 Unspecified intellectual disabilities; G80.9 Cerebral palsy, unspecified; B96.20 Unspecified Escherichia coli [E. coli] as the cause of diseases classified elsewhere; Z16.12 Extended spectrum beta lactamase (ESBL) resistance; E78.5 Hyperlipidemia, unspecified; F31.9 Bipolar disorder, unspecified; E03.9 Hypothyroidism, unspecified; D50.9 Iron deficiency anemia, unspecified; N18.9 Chronic kidney disease, unspecified; E11.22 Type 2 diabetes mellitus with diabetic chronic kidney disease; K44.9 Diaphragmatic hernia without obstruction or gangrene; Y83.8 Other surgical procedures as the cause of abnormal reaction of the patient, or of later complication, without mention of misadventure at the time of the procedure; Y92.89 Other specified places as the place of occurrence of the external cause; Z83.3 Family history of diabetes mellitus; Z88.0 Allergy status to penicillin; Z88.8 Allergy status to other drugs, medicaments and biological substances; Z22.322 Carrier or suspected carrier of Methicillin resistant Staphylococcus aureus
CPT/HCPCS: 36415-UA; 71010-TC; 76770-TC; 80048-TC; 80053-TC; 81001-TC; 81015-TC; 82043-90; 82570-TC; 82948-90; 83036-90; 83690-TC; 83735-TC; 84100-TC; 84300-TC; 84443-TC; 84550-TC; 85007-TC; 85025-TC; 85027-TC; 87086-90; 90779; 94640; 94760; A4217; J1815; J1956; J2185; J7030; J7613; Z7610

== ENCOUNTER 2017-06-01 07:45 | Inpatient (IN) | payer MEDICARE, MEDICAID ==
[2017-06-01] MEDS ORDERED: Midazolam 1mg/ml 2 ml vial IV ONE (08:12)
[2017-06-01 08:21] LABS: % EOSINOPHILS 1.1 % (0.0-5.0); % LYMPHOCYTES 13.5 % (20.0-50.0); % MONOCYTES 0.6 % (2.0-10.0); % NEUTROPHILS 84.8 % (40.0-80.0); HEMATOCRIT 28.7 % (41.0-60); HEMOGLOBIN 9.4 gm/dL (12-16); MEAN CELL VOLUME 90.8 fl (81-100); MEAN CORPUSCULAR HEMOGLOBIN 29.8 pg (27.0-31.0); MEAN CORPUSCULAR HGB CONC 32.8 pg (28.0-36.0); MEAN PLATELET VOLUME 9.4 fl; NEUTROPHILE ABSOLUTE 4.5 Th/cmm (1.8-8.0); PLATELET COUNT 153 Th/cmm (150-400); RED BLOOD COUNT 3.16 Mil/cmm (3.80-5.10); RED CELL DISTRIBUTION WIDTH 17.3 % (11.5-20.0); WHITE BLOOD COUNT 5.3 Th/cmm (4.8-10.8)
[2017-06-01] MEDS ORDERED: Sodium Chloride 0.9% 1,000 ML IV ONE (08:29)
[2017-06-01 08:30] LABS: INR 1.47 (0.5-1.4); PROTHROMBIN TIME (TEST) 15.6 SECONDS (9.5-11.5)
[2017-06-01] MEDS ORDERED: Midazolam 1mg/ml 2 ml vial IV STA (08:32)
[2017-06-01 08:36] LABS: ALB/GLOB RATIO 0.7 (1.0-1.8); ALKALINE PHOSPHATASE 842 U/L (34-104); ANION GAP 22.3 (7.0-16.0); BILIRUBIN,TOTAL 2.4 mg/dL (0.3-1.0); BUN/CREATININE RATIO 29.3; CALCIUM SERUM 9.4 mg/dL (8.6-10.3); CARBON DIOXIDE 16.5 mEq/L (21.0-31.0); CHLORIDE 96 mEq/L (98-107); CHOLESTEROL 35 mg/dL (<200); GLUCOSE 168 mg/dL (70-105); POTASSIUM SERUM 4.8 mEq/L (3.5-5.1); SGOT 149 U/L (13-39); SGPT/ALT 75 U/L (7-52); SODIUM SERUM 130 mEq/L (136-145); TRIGLYCERIDES 321 mg/dL (<150)
[2017-06-01 08:38] LABS: BUN - UREA NITROGEN 117 mg/dL (7-25)
--- NOTE | 2017-06-01 08:40 | ED Physician Chart ---
ED Chief Complaint/HPI - Patient Information Date Seen:: 06/01/17 Time Seen:: 08:00 Chief Complaint:: Dyspnea History of Present Illness:: , onset x one day of increasing dyspnea, cough, congestion, fever, and respiratory distress; no report of trauma, H/As, neck pain, C/P, Abd. Pain, A/N/ V/D/C, chills, or urinary s/s; Allergies:: Allergies Allergy/AdvReac Type Severity Reaction Status Date / Time fluconazole [From Diflucan] Allergy Verified 06/01/17 08:01 meperidine Allergy Verified 03/19/17 12:31 olopatadine [From Patanol] Allergy Verified 06/01/17 08:01 Penicillins Allergy Verified 03/19/17 12:31 prochlorperazine Allergy Verified 03/19/17 12:31 risperidone Allergy Verified 03/19/17 12:31 Vitals:: Vital Signs - 8 hr 06/01/17 08:02 Temp 100.0 F HR 169 RR 48 BP 115/92 O2 Sat % 100 Historian:: EMS Review:: Nurse's Note Reviewed, Old Chart Reviewed, EMS run form Reviewed, Transfer documents Reviewed ED Review of Systems - Review of Systems General/Constitutional: Fever, Chills, No weight loss, Weakness, No diaphoresis , No edema, No loss of appetite Skin: No skin lesions, No rash, No bruising Head: No headache, No light-headedness Eyes: No loss of vision, No pain, No diplopia ENT: No earache, No nasal drainage, No sore throat, No tinnitus Neck: No neck pain, No swelling, No thyromegaly, No stiffness, No mass noted Cardio Vascular: No chest pain, Palpitations, No PND, No orthopnea, No edema Pulmonary: SOB, Cough, No sputum, No wheezing GI: No nausea, No vomiting, No diarrhea, No pain, No melena, No hematochezia, No constipation, No hematemesis G/U: No dysuria, No frequency, No hematuria Bread Stacker: No vaginal discharge, No abnormal vaginal bleed, No contraction Musculoskeletal: No bone or joint pain, No back pain, No muscle pain Endocrine: No polyuria, No polydipsia Psychiatric: Prior psych history, Depression, Anxiety, No suicidal ideation, No homicidal ideation, No auditory hallucination, No visual hallucination Hematopoietic: No bruising, No lymphadenopathy Allergic/Immuno: No urticaria, No angioedema Neurological: No syncope, Focal symptoms, Weakness, No paresthesia, No headache , No seizure, No dizziness, No vertigo ED Past Medical History - Past Medical History Obtainable: Yes Past Medical History: HTN, DM, ESRD, Thyroid disorder Family History: Diabetes Melitus, HTN Social History: Non Smoker, No Alcohol, No Drug Use, Single, Care Facility Surgical History: PEG/GTube, other (Laparotomy; Colostomy) Psychiatricy History: Depression, Bipolar, Dementia Medication: Reviewed Family Medical History - Family Member Mother History Unknown: Yes Ethnicity: Unknown Living Status: Unknown Paternal History Unknown: Yes Ethnicity: Unknown Living Status: Unknown Hx Family Diabetes: Yes ED Physical Exam - Physical Examination General/Constitutional: Awake, Well-developed, well-nourished, Alert, No distress, GCS 15, Non-toxic appearing, Ambulatory Head: Atraumatic Eyes: Lids, conjuctiva normal, PERRL, EOMI Skin: Nl inspection, No rash, No skin lesions, No ecchymosis, Well hydrated, No lymphadenopathy ENMT: External ears, nose nl, TM canals nl, Nasal exam nl, Lips, teeth, gums nl , Oropharynx nl, Tonsils nl Neck: Nontender, Full ROM w/o pain, No JVD, No nuchal rigidity, No bruit, No mass, No stridor Respiratory: Nl effort/Exclusion Other Respiratory comments:: Lungs: + Rales and Rhonchi Cardio Vascular: RRR, No murmur, gallop, rubs, NL S1 S2, Carotid/Femoral/Distal pulses equal bilaterally GI: No tenderness/rebounding/guarding, No organomegaly, No hernia, Normal BS's, Nondistended, No mass/bruits, No McBurney tenderness : No CVA tenderness Extremities: No tenderness or effusion, Full ROM, normal strength in all extremities, No edema, Normal digits & nails Neuro/Psych: Alert/oriented, DTR's symmetric, Normal sensory exam, Normal motor strength, Judgement/insight normal, Mood normal, Normal gait, No focal deficits Misc: Normal back, No paraspinal tenderness ED Labs/Radiology/EKG Results - Lab Results Results: Laboratory Tests 06/01/17 06/01/17 08:05 08:05 WBC 5.3 RBC 3.16 L Hgb 9.4 L Hct 28.7 L MCV 90.8 MCH 29.8 MCHC Differential 32.8 RDW 17.3 Plt Count 153 MPV 9.4 Neutrophils % 84.8 H Lymphocytes % 13.5 L Monocytes % 0.6 L Eosinophils % 1.1 Basophils % 0.0 PT 15.6 H INR 1.47 H PTT (Actin FS) 31.3 Comments:: Na+: 130; BUN: 117; Cr: 4.0 - Radiology Results Comments:: CXR: Good ET Tube Placement; + Hazy Infiltrate - EKG Interpretations EKG Time:: 08:30 Rate & Rhythm: 160; ST/SVT Comments:: non-specific st-t changes ED Assessment - Procedures Procedures:: Oral Endotracheal Intubation performed; no complications Informed Consent: Procedure/risk/benefits explained by MD: Yes ED Septic Shock - . Is Septic Shock (SBP<90, OR Lactate>4 mmol\L) present?: No - <6hrs of presentation: Vital Signs: Vital Signs - 8 hr 06/01/17 08:02 Temp 100.0 F HR 169 RR 48 BP 115/92 O2 Sat % 100 ED Reassessment (Disposition) - Reassessment Reassessment Condition:: Improved - Diagnosis Diagnosis:: PNA; Sepsis; Dehydration; Hyponatremia; ESRD; Pre-Renal Azotemia; Respiratory Failure - Aftercare/Follow up Instructions Aftercare/Follow-Up Instructions:: Counseled pt regarding lab results/diagnosis & need follow up, Counseled pt & family regarding lab results/diagnosis & need follow up - Patient Disposition Discharge/Transfer:: Acute Care w/in this hosp Accepting Physician:: Dr. Sidhu Time Called:: 839 Time Responded:: 08:40 Admitted to:: ICU Spoke to:: Dr. Sidhu Admitting Medical Physician:: Dr. Sidhu Condition at Disposition:: Stable, Improved
[2017-06-01 08:44] LABS: BE(B) -13.3 mEq/L (-3.0-3.0); HCO3 14.6 mEq/L (20.0-26.0)
[2017-06-01 08:45] LABS: ABG SOURCE Arterial; CRITICAL VALUES REPORTED BY SH; FIO2 100; MECH RATE 16; MECH VT 400
[2017-06-01 08:47] LABS: AMYLASE SERUM < 10 U/L (29-103); LIPASE 12 U/L (11-82)
[2017-06-01] MEDS ORDERED: Sodium Bicarbonate 8.4% 50mEq PFS IVP STA (08:50)
[2017-06-01] MEDS ORDERED: Sodium Bicarbonate 8.4% 50mEq PFS IVP ONE ×2 (08:53→18:39)
--- NOTE | 2017-06-01 08:58 | Diagnostic Imaging Report ---
Exam: Portable examination of chest. HISTORY: Intubation. Findings: Portable summation of chest at 0 820 of hours reviewed compatible prior study of 03/19/2017 The study demonstrates endotracheal tube placement 2 cm above the randa. There is most likely evidence for hiatal hernia. Scoliotic convexity thoracic spine to the right appreciated. No active pulmonic infiltrates or effusions are noted. IMPRESSION: 1. Endotracheal tube 2 cm above the randa. Side-port 2. Scoliotic convexity thoracic spine to the right. 3. Most likely hiatal hernia.
[2017-06-01] MEDS ORDERED: Levofloxacin 500mg/100mL 500 MG/100 ML BAG IV ONE ×2 (09:20→10:00)
[2017-06-01 09:22] LABS: CREATINE KINASE MB 8.5 ng/mL (0.6-6.3)
[2017-06-01] MEDS ORDERED: Hydrocodone/APAP 5mg/325mg Tab GT PRN (09:41)
[2017-06-01] MEDS ORDERED: guaiFENesin 200 MG/10 ML UDC GT PRN (09:41)
[2017-06-01] MEDS ORDERED: Magnesium Hydroxide (MOM) 30 mL UDC GT PRN (09:41)
[2017-06-01] MEDS ORDERED: Dextrose 50% 50 mL Abboject IVP PRN (09:41)
[2017-06-01] MEDS ORDERED: Diltiazem 5 mg/mL 5mL Vial IVP PRN (09:44)
[2017-06-01] MEDS ORDERED: Sodium Chloride 0.9% 1,000 ML IV SCH ×2 (09:45→12:51)
[2017-06-01] MEDS ORDERED: Diltiazem 5 mg/mL 5mL Vial IVP ONE (09:54)
[2017-06-01] MEDS ORDERED: Norepinephrine 4 mg/4mL Vial IV ONE ×2 (10:02→19:41)
[2017-06-01] MEDS ORDERED: Labetalol 5 mg/mL 20 mL Vial ONE (10:05)
[2017-06-01] MEDS ORDERED: Labetalol 5 mg/mL 20 mL Vial IVP PRN (10:22)
[2017-06-01] MEDS ORDERED: Diltiazem 5 mg/mL 5mL Vial IVP STA (11:00)
[2017-06-01] MEDS ORDERED: Albumin 25% 25gm/100mL 25 GM/100 ML BTL IV ONE (11:24)
[2017-06-01] MEDS: Albuterol Nebulizer 2.5mg/3mL HHN SCH ×3 (11:48→19:41)
[2017-06-01] MEDS: Meropenem 500 MG in Sodium Chloride 0.9% 100 ML IV SCH ×2 (12:00→21:38)
[2017-06-01] MEDS: Ipratropium Neb 0.5 mg/2.5 mL UD IH SCH ×3 (12:09→19:41)
--- NOTE | 2017-06-01 12:38 | Internal Medicine Prog Note ---
Internal Medicine Subjective - Subjective Service Date: 06/01/17 ([facility] [id number]) Internal Medicine Objective - Results Result Diagrams: 06/01/17 08:05 06/01/17 08:05 Recent Labs: Laboratory Last Values WBC 5.3 Th/cmm (4.8-10.8) 06/01/17 08:05 RBC 3.16 Mil/cmm (3.80-5.10) L 06/01/17 08:05 Hgb 9.4 gm/dL (12-16) L 06/01/17 08:05 Hct 28.7 % (41.0-60) L 06/01/17 08:05 MCV 90.8 fl (81-100) 06/01/17 08:05 MCH 29.8 pg (27.0-31.0) 06/01/17 08:05 MCHC Differential 32.8 pg (28.0-36.0) 06/01/17 08:05 RDW 17.3 % (11.5-20.0) 06/01/17 08:05 Plt Count 153 Th/cmm (150-400) 06/01/17 08:05 MPV 9.4 fl 06/01/17 08:05 Neutrophils % 84.8 % (40.0-80.0) H 06/01/17 08:05 Lymphocytes % 13.5 % (20.0-50.0) L 06/01/17 08:05 Monocytes % 0.6 % (2.0-10.0) L 06/01/17 08:05 Eosinophils % 1.1 % (0.0-5.0) 06/01/17 08:05 Basophils % 0.0 % (0.0-2.0) 06/01/17 08:05 PT 15.6 SECONDS (9.5-11.5) H 06/01/17 08:05 INR 1.47 (0.5-1.4) H 06/01/17 08:05 PTT (Actin FS) 31.3 SECONDS (26.0-38.0) 06/01/17 08:05 D-Dimer > 5000 ng/mL (100-400) H 06/01/17 08:05 Specimen Source Arterial 06/01/17 07:54 Sample Site RB 06/01/17 07:54 pH 7.30 (7.35-7.45) L 06/01/17 07:54 pCO2 23.0 mmHg (35.0-45.0) L* 06/01/17 07:54 pO2 476.0 mmHg (80.0-100.0) H 06/01/17 07:54 HCO3 14.6 mEq/L (20.0-26.0) L 06/01/17 07:54 Base Excess -13.3 mEq/L (-3.0-3.0) L 06/01/17 07:54 O2 Saturation 100.0 % (92.0-100.0) 06/01/17 07:54 Emmanuel Test NA 06/01/17 07:54 Vent Rate 16 06/01/17 07:54 Inspired O2 100 06/01/17 07:54 Tidal Volume 400 06/01/17 07:54 PEEP 5 06/01/17 07:54 Pressure (ins/psv/peep) NA 06/01/17 07:54 Critical Value SH 06/01/17 07:54 Sodium 130 mEq/L (136-145) L 06/01/17 08:05 Potassium 4.8 mEq/L (3.5-5.1) 06/01/17 08:05 Chloride 96 mEq/L (98-107) L 06/01/17 08:05 Carbon Dioxide 16.5 mEq/L (21.0-31.0) L 06/01/17 08:05 Anion Gap 22.3 (7.0-16.0) H 06/01/17 08:05 BUN 117 mg/dL (7-25) H* 06/01/17 08:05 Creatinine 4.0 mg/dL (0.6-1.2) H 06/01/17 08:05 Est GFR ( Amer) 14.9 ml/min (>90) 06/01/17 08:05 Est GFR (Non-Af Amer) 12.3 ml/min 06/01/17 08:05 BUN/Creatinine Ratio 29.3 06/01/17 08:05 Glucose 168 mg/dL (70-105) H 06/01/17 08:05 Whole Bld Lactic Acid 14.22 mmol/L (0.60-1.99) H* 06/01/17 10:05 Calcium 9.4 mg/dL (8.6-10.3) 06/01/17 08:05 Total Bilirubin 2.4 mg/dL (0.3-1.0) H 06/01/17 08:05 AST 149 U/L (13-39) H 06/01/17 08:05 ALT 75 U/L (7-52) H 06/01/17 08:05 Alkaline Phosphatase 842 U/L (34-104) H 06/01/17 08:05 Creatine Kinase 230 U/L (30-223) H 06/01/17 08:05 CK-MB (CK-2) 8.5 ng/mL (0.6-6.3) H 06/01/17 08:05 Troponin I 0.22 ng/mL (0.01-0.05) H* D 06/01/17 08:05 B-Natriuretic Peptide 126.0 pg/mL (5.0-100.0) H 06/01/17 08:05 Total Protein 6.9 gm/dL (6.0-8.3) 06/01/17 08:05 Albumin 2.9 gm/dL (3.7-5.3) L 06/01/17 08:05 Globulin 4.0 gm/dL 06/01/17 08:05 Albumin/Globulin Ratio 0.7 (1.0-1.8) L 06/01/17 08:05 Triglycerides 321 mg/dL (<150) H 06/01/17 08:05 Cholesterol 35 mg/dL (<200) 06/01/17 08:05 LDL Cholesterol Direct 10 mg/dL (75-193) L 06/01/17 08:05 HDL Cholesterol 9 mg/dL (23-92) L 06/01/17 08:05 Amylase < 10 U/L (29-103) L 06/01/17 08:05 Lipase 12 U/L (11-82) 06/01/17 08:05 - Physical Exam Vitals and I&O: Vital Signs Temp 98.9 F 06/01/17 10:09 Pulse 111 06/01/17 11:55 Resp 21 06/01/17 11:04 BP 67/36 06/01/17 10:20 Pulse Ox 100 06/01/17 11:55 Intake & Output 05/31/17 06/01/17 06/01/17 18:59 06:59 18:59 Weight (lbs) 92 lb Active Medications: Current Medications Acetaminophen (Tylenol) 650 mg GT Q4H PRN PRN Reason: MILD PAIN Stop: 07/31/17 12:29 Acetaminophen/Hydrocodone Bitart (Everest 5mg/325mg) 1 tab GT Q6H PRN PRN Reason: MODERATE PAIN Stop: 07/31/17 09:40 Albuterol Sulfate (Albuterol 2.5mg/3ml Neb Ud) 2.5 mg HHN QIDRT CHING Stop: 07/31/17 10:59 Last Admin: 06/01/17 11:48 Dose: 2.5 mg Ascorbic Acid (Vitamin C) 500 mg GT DAILY CHING Stop: 08/01/17 08:59 Dextrose (D50w) 50 ml IVP PRN PRN PRN Reason: blood sugar < 60 Stop: 07/31/17 09:40 Last Admin: 06/01/17 12:16 Dose: 50 ml Diltiazem HCl (Cardizem) 20 mg IVP Q4H PRN PRN Reason: HR Greater than 130 per min Stop: 07/31/17 09:43 Diphenhydramine HCl (Benadryl) 25 mg GT Q8H PRN PRN Reason: ITCHINESS Stop: 07/31/17 09:40 Famotidine (Pepcid) 20 mg IVP Q12H CHING Stop: 07/31/17 11:59 Folic Acid (Folate) 1 mg GT DAILY CHING Stop: 08/01/17 08:59 Guaifenesin (Robitussin) 200 mg GT Q4HR PRN PRN Reason: Cough or Congestion Stop: 07/31/17 09:40 Hydrocortisone Sodium Succinate (Solu-Cortef) 100 mg IVP Q8HR CHING Stop: 07/31/17 12:59 Sodium Chloride (Nacl 0.9%) 1,000 mls @ 125 mls/hr IV .Q8H CHING Stop: 07/31/17 09:44 Last Admin: 06/01/17 11:50 Dose: 125 mls/hr Meropenem 500 mg/ Sodium (Chloride) 100 mls @ 100 mls/hr IV Q12HR CHING Stop: 07/31/17 12:29 Albumin Human (Albuminar 25%) 25 gm in 100 mls @ 50 mls/hr IV Q6HR ONE Stop: 06/01/17 13:23 Last Admin: 06/01/17 12:03 Dose: 50 mls/hr Phenylephrine HCl 50 mg/ (Sodium Chloride) 255 mls @ 30.6 mls/hr IV TITR CHING; 100 MCG/MIN PRN Reason: Protocol Stop: 07/31/17 12:29 Norepinephrine Bitartrate 8 mg (/ Dextrose) 258 mls @ 23.22 mls/hr IV TITR PRN ; Protocol; 12 MCG/MIN PRN Reason: BP MAINTENANCE (PER PROTOCOL) Stop: 07/31/17 10:27 Vancomycin HCl 1 gm/ Sodium (Chloride) 250 mls @ 165 mls/hr IV ONCE ONE Stop: 06/01/17 14:30 Albumin Human (Albuminar 25%) 25 gm in 100 mls @ 50 mls/hr IV Q6HR CHING Stop: 06/02/17 07:59 Insulin Aspart (Novolog) 0 units SUBQ ACHS CHING PRN Reason: Protocol Stop: 07/31/17 11:29 Insulin Detemir (Levemir Insulin) 50 units SUBQ HS CHING PRN Reason: Protocol Stop: 07/31/17 20:59 Ipratropium [place] (Atrovent Neb 0.5mg/2.5ml) 0.5 mg IH QIDRT CHING Stop: 07/31/17 10:59 Last Admin: 06/01/17 12:09 Dose: 0.5 mg Labetalol HCl (Trandate) 5 mg IVP Q15MIN PRN PRN Reason: Tachycardia Stop: 07/31/17 10:21 Lactobacillus Rhamnosus (Culturelle) 1 each GT DAILY CHING Stop: 08/01/17 08:59 Lactulose (Cephulac) 20 gm GT DAILY CHING Stop: 08/01/17 08:59 Levothyroxine Sodium (Synthroid) 0.05 mg GT DAILY CHING Stop: 08/01/17 08:59 Lorazepam (Ativan) 1 mg IVP Q4H PRN; Protocol PRN Reason: Agitation Stop: 07/31/17 08:55 Lorazepam (Ativan) 0.5 mg PO Q8HR PRN; Protocol PRN Reason: Anxiety Stop: 07/31/17 09:40 Magnesium Hydroxide (Milk Of Magnesia) 30 ml GT DAILY PRN PRN Reason: Constipation Stop: 07/31/17 09:40 Methylprednisolone Sodium Succinate (Solu-Medrol) 80 mg IVP Q8HR CHING Stop: 07/31/17 12:59 Miscellaneous (Collagenase Clostridium Hist. [Santyl]) 1 appl TP DAILY CHING Stop: 08/01/17 08:59 Miscellaneous (Loperamide Hcl [Imodium A-D]) 2 mg GT Q4H PRN PRN Reason: Diarrhea Miscellaneous (Zinc Oxide [Zinc Oxide]) 1 unit TP DAILY CHING Stop: 08/01/17 08:59 Miscellaneous (Vancomycin Iv Per Pharmacy) 1 ea MC PRN CHING Stop: 07/31/17 09:44 Morphine Sulfate (Morphine) 2 mg IVP Q4H PRN PRN Reason: Pain (Severe) Stop: 07/31/17 09:43 Ondansetron HCl (Zofran) 4 mg IV Q8H PRN PRN Reason: Nausea / Vomiting Stop: 07/31/17 09:44 Petrolatum (Zinc Oxide) 1 appl TP DAILY CHING Stop: 08/01/17 08:59 Rivaroxaban (Xarelto) 10 mg GT DAILY CHING Stop: 08/01/17 08:59 Sodium Bicarbonate (Sodium Bicarbonate) 650 mg GT Q12H CHING PRN Reason: Protocol Stop: 07/31/17 11:59 Sodium Chloride (Normal Saline 0.9% Irr) 1,000 ml IR X1 ONE Stop: 06/01/17 12:15 - Procedures Procedures: Procedures Procedure Code Date BLOOD TRANSFUSION SERVICE 91459 12/16/16 BYPASS DESCENDING COLON TO CUTANEOUS, OPEN APPROACH [id number] 09/21/16 CHANGE FEEDING DEVICE IN UP INTEST TRACT, SHEARING SHED WORKER APPROACH [id number] 09/21/16 CHANGE GASTROSTOMY TUBE 59342 09/21/16 COLOSTOMY 09186 09/21/16 AGNIESZKA BONE 20 SQ CM/< 41317 01/28/15 DIAGNOSTIC COLONOSCOPY 74902 03/06/16 EGD BIOPSY SINGLE/MULTIPLE 47883 03/06/16 EXCISION OF DESCENDING COLON, OPEN APPROACH [id number] 09/21/16 EXCISION OF DUODENUM, ENDO, DIAGN [id number] 03/06/16 EXCISION OF SACRUM, OPEN APPROACH [id number] 09/21/16 EXCISION OF STOMACH, ENDO, DIAGN [id number] 03/06/16 IMMOBILIZ/WOUND ATTN NEC 93.59 01/28/15 INSERT INDWELLING CATH 57.94 10/18/05 INSERT TEMP BLADDER CATH 74816 10/18/05 INSERTION OF INFUSION DEV INTO SUP VENA CAVA, PERC APPROACH [id number] 09/21/16 INSPECTION OF LOWER INTESTINAL TRACT, ENDO [id number] 03/06/16 INSPECTION OF UPPER INTESTINAL TRACT, ENDO [id number] 10/27/15 LOC EXC BONE LESION NEC 77.69 01/28/15 PACKED CELL TRANSFUSION 99.04 10/20/14 REMOVAL OF PRESSURE SORE 88770 09/21/16 REPLACE GASTROSTOMY TUBE 97.02 06/09/14 RESPIRATORY VENTILATION, 24-96 CONSECUTIVE HOURS [id number] 09/21/16 TRANSFUSE NONAUT RED BLOOD CELLS IN PERIPH VEIN, PERC 40685H7 12/16/16 VENT MGMT INPAT INIT DAY 68081 09/21/16 Internal Medicine Assmt/Plan - Assessment Assessment: ACUTE RESPIRATORY FAILURE -currently orally intubated on ventilator LACTIC ACIDOSIS R/O SEPSIS HYPOTENSION SEVERE PROTEIN CALORIE MALNUTRITION ACUTE RENAL INSUFFICIENCY MR TYPE 2 DM
[2017-06-01] MEDS: INSULIN ASPART, RECOMBINANT 100 UNITS/ML SUBQ SCH ×3 (13:44→21:39)
[2017-06-01] MEDS: Phenylephrine HCl 50 MG in Sodium Chloride 0.9% 250 ML IV SCH ×2 (14:27→19:35)
[2017-06-01] MEDS: Hydrocortisone Sodium Succ 100 mg Vial IVP SCH ×2 (14:29→21:39)
[2017-06-01 16:27] LABS: TROP I 0.36 ng/mL (0.01-0.05)
[2017-06-01 17:25] VITALS: BP 60/42
[2017-06-01] MEDS ORDERED: Pneumococcal Vaccine 0.5 mL Vial IM ONE (17:37)
[2017-06-01] MEDS ORDERED: Influenza Vaccine 0.5 mL Syr IM ONE (17:37)
[2017-06-01] MEDS: Morphine Sulfate 2 mg/mL 1mL Syr IVP PRN ×2 (18:27→23:47)
[2017-06-01] MEDS: Albumin 25% 25gm/100mL 25 GM/100 ML BTL IV SCH ×2 (18:28→23:50)
[2017-06-01] MEDS ORDERED: Chlorhexidine Gluconate 0.12% 15mL Mouthwash MM SCH (20:00)
--- NOTE | 2017-06-01 20:39 | History & Physical ---
ADMIT DATE: 06/01/2017 CHIEF COMPLAINT: Dyspnea. HISTORY OF PRESENT ILLNESS: This is a 57-year-old female, who is a resident at [facility], who is brought here to [facility] for a 1-day history of increasing shortness of breath, coughing, and congestion. In the ER, the patient was noted to be in respiratory distress. For this reason, the patient was orally intubated by the ER physician. The patient is now admitted to the ICU unit. The patient was also found to be hypotensive. The patient is maxed out on Levophed as well as payam. PAST MEDICAL HISTORY: Mental retardation, cerebral palsy, and diabetes. PAST SURGICAL HISTORY: PEG and colostomy. ALLERGIES: Demerol, olopatadine, penicillin, and Risperdal. MEDICATIONS: DuoNeb, Robitussin, Ativan, vitamin C, Lipitor, ____, Santyl, p.r.n. Cardizem, folic acid, Levemir insulin 50 units subcutaneously at bedtime, NPH 15 units subcutaneously b.i.d., sliding scale regular insulin, levothyroxine, multivitamin, Xarelto, zinc oxide, and sodium bicarbonate. SOCIAL HISTORY: The patient is a group home resident, requiring 24-hour nursing care. REVIEW OF SYSTEMS: Unable to obtain, the patient is nonverbal. PHYSICAL EXAMINATION: GENERAL: The patient is awake, orally intubated. VITAL SIGNS: Temperature 99.9, heart rate 118, blood pressure 56/37, respirations 20, and O2 of 97%. HEENT: Head; normocephalic and atraumatic. NECK: Supple. No mass. LUNGS: Scattered rhonchi. HEART: Rhythm. ABDOMEN: Soft, nontender, and nondistended. Colostomy in place. LABORATORY DATA: WBC 5.3, H and H are 9.4 and 28.7, and platelets of 153. D-dimer of more than 5000. Blood gas; pH of 7.30, CO2 of 23.0, pO2 476.0, and HCO3 of 14.6. Sodium 130, potassium 4.8, chloride 96, BUN 117, creatinine 4.0. Whole lactic acid of 14.22. Troponin is 0.22. Amylase is less than 10. Albumin of 2.9. DIAGNOSTICS: The patient had a chest x-ray done and the impression is endotracheal tube 2 cm above the randa, slight scoliotic convexity of the thoracic spine to the right, most likely hiatal hernia. ASSESSMENT: Acute respiratory failure; lactic acidosis, rule out sepsis; severe protein-calorie malnutrition; acute renal insufficiency; elevated troponin; hyponatremia; elevated D-dimer; anemia; type 2 diabetes; cerebral palsy; mitral regurgitation. The patient had a urinalysis done, waiting for results. Also, blood culture was done, waiting for results. PLAN: The patient to be admitted to the ICU unit. We will have the PICC line in place. We will have Pulmonary and Nephrology consultations. Keep the patient n.p.o. for now. Monitor the patient's electrolyte levels. The patient to have albumin 25%. We will give p.r.n. dopamine. We will keep the patient on IV Solu-Medrol, ____. We will do aggressive IV fluids due to the elevated lactic acid. We will repeat the patient's lactic acid level. We will continue to follow this patient. JOB# [id number]
[2017-06-01] MEDS ORDERED: Insulin Detemir 100 units/mL 10mL Vial SUBQ SCH (21:00)
[2017-06-02] MEDS ORDERED: Norepinephrine 4 mg/4mL Vial IV ONE (00:17)
[2017-06-02] MEDS: Phenylephrine HCl 50 MG in Sodium Chloride 0.9% 250 ML IV SCH (00:23)
[2017-06-02] MEDS ORDERED: Multivitamin w/ Minerals Tab GT SCH (09:00)
[2017-06-02] MEDS ORDERED: ZINC OXIDE TP SCH (09:00)
[2017-06-02] MEDS ORDERED: Lactulose 10 Gm/15 mL 30mL UDC GT SCH (09:00)
[2017-06-02] MEDS ORDERED: Venelex 60gm Tube TP SCH (09:00)
[2017-06-02] MEDS ORDERED: Levothyroxine 0.05 Mg Tab GT SCH (09:00)
[2017-06-02] MEDS ORDERED: Zinc Oxide Ointment 60 gm TP SCH (09:00)
[2017-06-02] MEDS ORDERED: Lactobacillus Rhamnosus 10 Billion CFU Capsule GT SCH (09:00)
--- NOTE | 2017-06-02 21:45 | Consultation ---
DATE OF CONSULTATION: 06/01/2017 PATIENT OF: Stephon Sidhu D.O. Thank you very much Dr. Sidhu for this consultation. HISTORY OF PRESENT ILLNESS: This is a 57-year-old female with history of cerebral palsy who presented with acute respiratory distress, status post emesis and possible aspiration, hypotension, was intubated, placed on a ventilator, started on pressors, admitted for treatment and management. The patient has been admitted in the past for pneumonia and sepsis and other problems. She is awake and responsive, but on double pressors to maintain adequate blood pressure. PAST MEDICAL HISTORY: As above. SOCIAL HISTORY: halfway resident. REVIEW OF SYSTEMS: Unable to obtain because of the patient's condition. PHYSICAL EXAMINATION: GENERAL: The patient is intubated, arousable. VITAL SIGNS: Temperature 100.0 T-max, temperature now 97.7, pulse 120, respirations are 25, blood pressure is 95/55, saturation is 100%. HEENT: Atraumatic, normocephalic. Pupils reactive to light and accommodation. Ears, nose and throat normal. NECK: Supple. No JVD. CHEST: There are a few rhonchi bilaterally. HEART: Regular rate and rhythm. ABDOMEN: Soft. EXTREMITIES: No edema. LABORATORY DATA: WBC is ____, hemoglobin 9.4, hematocrit 28.7, platelets 153. ABGs: pH 7.30, pCO2 of 23, pO2 474, bicarbonate of 14, saturation 100%. Sodium is 130, potassium 4.8, BUN is 117, creatinine 4.0. Lactic acid 12.9. Troponin 0.39. Chest x-ray, no obvious infiltrate. ET tube in place, kyphoscoliosis. IMPRESSION: 1. This is a 57-year-old female with respiratory failure. 2. Sepsis. 3. Severe metabolic acidosis. 4. Severe dehydration, acute renal failure. 5. Rule out urinary tract infection. PLAN: 1. IV antibiotics. 2. IV fluids and bicarbonate. 3. Nebulizer. 4. Ventilator support. 5. Follow up ABGs and chest x-ray, overall prognosis is poor. I will follow the patient with you. Thank you very much for this consultation. We will add also some stress doses of steroids. JOB# [id number]
--- NOTE | 2017-06-03 04:31 | Consultation ---
DATE OF CONSULTATION: 06/01/2017 RENAL CONSULTATION Renal consultation because of her azotemia, BUN of 117 and creatinine 4. This patient is a resident at [facility], 57-year-old female with underlying history of severe mental disability, who was sent into the Emergency Room because of increasing dyspnea, shortness of breath, and fever. ER evaluation; BUN was 117, creatinine was 4.0, the rest of electrolytes are not available. She was hypotensive, given fluid challenge of 100, increasing respiratory difficulty. The patient was subsequently intubated. PAST MEDICAL HISTORY: Patient had a history of hypertension, diabetes, multiple hospital admissions, autonomic dysfunction, GI bleeding in the past with presence of hiatal hernia, mental retardation, bipolar disorder, and chronic renal disease which usually is precipitated by the dehydration ____ normal kidney function once the patient is adequately hydrated. REVIEW OF SYSTEMS: Could not be obtained. The patient is intubated from the Emergency Room. PHYSICAL EXAMINATION: VITAL SIGNS: Her blood pressure is 62/40, off Gabo-Synephrine and Levophed at the present time; heart rate of 114. She has an ET tube in place with a ventilator ____. CHEST: Diffuse rales are noted on auscultation. HEART: Sinus tachycardia. ABDOMEN: Mild degree of distention. Bowel sounds are present. EXTREMITIES: Contracted, but no evidence of edema. LABORATORY DATA: Blood studies are reviewed 5300 white blood cell count, hemoglobin of 9.4, hematocrit of 28.7, platelet count 153,000. INR of 1.4, PT of 15.6. Arterial blood gas: A pH of 7.3, pCO2 of 23, pO2 of 46 with a patient having 100% O2 with a ventilator rate of 16. Electrolytes: 130 sodium, potassium 4.8, chloride 96, CO2 of 16, BUN of 117, creatinine of 4.0, GFR of 14. Lactic acid is 14.2. Bilirubin is 2.4, AST 149, ALT of 75, alkaline phosphatase of 842. Creatine kinase of 230. IMPRESSION: 1. Septic shock. 2. Hypotension likely hypovolemia in this patient. 3. Respiratory failure. 4. Septicemia. Focus of infection is unclear at the present time. Pinto cultures are needed. Another fluid challenges of 500 mL of normal saline. We will check BNP of this patient. Continue current intubation, although I have noted that this patient ____ DNR from September 2015 that apparently was not signed by a physician at that time. It was signed by the family, sister. We will follow this patient with you. JOB# [id number]
--- NOTE | 2017-06-15 22:56 | Discharge Summary ---
DATE OF DISCHARGE: 06/02/2017 SUMMARY The patient on 06/02/2017. DIAGNOSES: Acute respiratory failure, lactic acidosis, rule out sepsis, severe protein-calorie malnutrition, acute renal insufficiency, elevated troponin, hyponatremia, elevated D-dimer, anemia, type 2 diabetes, cerebral palsy, mitral regurgitation. HISTORY OF PRESENT ILLNESS: A 57-year-old female, a resident of [facility] who was brought to [facility] for 1-day history of increasing of shortness of breath, coughing, and congestion. In the ER, the patient was noted to be in respiratory distress. For this reason, the patient was orally intubated by ER physician, was placed on a ventilator. HOSPITAL COURSE: The patient was admitted to the ICU unit. The patient was also found to be hypotensive. The patient was kept on Levophed as well as Gabo. Dr. Sidhu spoke to the patient's sister who wishes the patient to be DNR. The patient was also kept on albumin 25%, also had p.r.n. dopamine, aggressive IV fluids for hydration and the patient was on Solu-Medrol as well. Unfortunately, on 06/02/2017, patient . JOB# [id number]
== END 2017-06-02 03:05 | disposition expired | DRG 871 ==
LOC: ER 07:45 → ICU 09:04
PROVIDERS: ADMIT Internal Medicine; ATTEND Internal Medicine
PROC: 0BH17EZ Insertion of Endotracheal Airway into Trachea, Via Natural or Artificial Opening (ICD-10-PCS; principal; 2017-06-01)
PROC: 5A1935Z Respiratory Ventilation, Less than 24 Consecutive Hours (ICD-10-PCS; 2017-06-01)
DX: A41.9 Sepsis, unspecified organism (principal); N18.6 End stage renal disease; J96.00 Acute respiratory failure, unspecified whether with hypoxia or hypercapnia; E43 Unspecified severe protein-calorie malnutrition; R65.21 Severe sepsis with septic shock; N17.9 Acute kidney failure, unspecified; I12.0 Hypertensive chronic kidney disease with stage 5 chronic kidney disease or end stage renal disease; J18.9 Pneumonia, unspecified organism; E11.22 Type 2 diabetes mellitus with diabetic chronic kidney disease; E87.1 Hypo-osmolality and hyponatremia; Z68.1 Body mass index [BMI] 19.9 or less, adult; F03.90 Unspecified dementia, unspecified severity, without behavioral disturbance, psychotic disturbance, mood disturbance, and anxiety; Z66 Do not resuscitate; F31.9 Bipolar disorder, unspecified; E86.0 Dehydration; D64.9 Anemia, unspecified; G80.9 Cerebral palsy, unspecified; I34.0 Nonrheumatic mitral (valve) insufficiency; Z88.0 Allergy status to penicillin; Z88.8 Allergy status to other drugs, medicaments and biological substances; Z83.3 Family history of diabetes mellitus; Z82.49 Family history of ischemic heart disease and other diseases of the circulatory system; Z93.3 Colostomy status; Z93.1 Gastrostomy status
CPT/HCPCS: 36415-UA; 36600-90; 71010-TC; 80053-TC; 80061-TC; 81025-TC; 82150-TC; 82550-TC; 82553; 82803-TC; 82947-TC; 82948-90; 83605; 83690-TC; 83880-TC; 84484-TC; 85025-TC; 85379-TC; 85610-TC; 85730-TC; 87070; 87086-90; 90779; 90799; 93005; 94002; 94003; 94640; 94760; J0330; J1720; J1815; J1956; J2185; J2250; J2270; J2370; J2405; J3370; J3490; J7030; J7613; J7799; P9046; X6452; Z7610